=== PATIENT | male | born 1975 | race Caucasian/White ===

== ENCOUNTER 2018-08-17 13:45 | Inpatient (IN) | payer BC, SELFPAY ==
[2018-08-17] VITALS (26 sets, daily range): BP systolic 78–232; BP diastolic 39–94; PULSE 73–109; RESP 16–30; TEMP 35.7–37.7; O2SAT 67–925; BMI 43.2; BMI 43.4; BMI 43.5
--- NOTE | 2018-08-17 13:58 | RAD_ITS ---
STUDY: X-RAY CHEST REASON FOR EXAM: Male, 43 years old. Dyspnea TECHNIQUE: Frontal view of the chest COMPARISON: 02/12/2015 FINDINGS: There are low lung volumes. The lungs are grossly clear. The heart is prominent which is likely accentuated by the low lung volumes. The visualized osseous structures are within normal limits. RAD/Chest 1 View (Portable) IMPRESSION: Low lung volumes. Grossly clear lungs. Electronically Signed: Patrice Roth, at 14:26 EST Tel , Service support ,
--- NOTE | 2018-08-17 13:59 | ED.RN ---
PT WITH BILAT PETECHIAE ON THE UPPER EXTREMITIES. PHYSICIAN NOTIFIED.
--- NOTE | 2018-08-17 14:07 | EKG12_ITS ---
Test Reason : SOB Blood Pressure : / mmHG Vent. Rate : 091 BPM Atrial Rate : 091 BPM P-R Int : 124 ms QRS Dur : 110 ms QT Int : 368 ms P-R-T Axes : 026 073 052 degrees QTc Int : 452 ms Normal sinus rhythm Normal ECG Confirmed by ERIN HARMON, MILI ([id number]), technical writer and editor JENNIFER MART ([id number]) on 08/20/2018 2:25:32 PM Referred By: DC Confirmed By:MILI KHAN MD
--- NOTE | 2018-08-17 14:07 | CT_ITS ---
STUDY: CTA CHEST REASON FOR EXAM: Male, 43 years old. SOB, 3 DAYS POST OP HERNIA REPAIR, HYPOXIC ON ARRIVAL TO ED, HX-HTN, DB. RADIATION DOSAGE (If Supplied By Facility): CTDIvol = ( 18.38 ) mGy, DLP = ( 705.62 ) mGycm TECHNIQUE: The examination was performed with the intravenous administration of 100 ml of Isovue 370 contrast material. Post-processing of the angiographic images was performed, with multiplanar reformation and 3D reconstruction. Individualized dose optimization techniques were used for this CT. COMPARISON: None. FINDINGS: There is limited enhancement of the main pulmonary artery and right and left pulmonary arteries. There is limited enhancement of the bilateral peripheral pulmonary arteries. Normal thoracic aorta and visualized great vessels. Normal heart and pericardium. Normal mediastinum. Normal hilar regions. Normal visualized trachea and bronchi. The lungs are well expanded. There are numerous diffuse bilateral groundglass opacities with confluence at the lung bases. There is trace right pleural effusions. Normal pleura. Normal chest wall structures. There are degenerative changes of thoracic spine. CT/CTA Chest W/WO Contrast IMPRESSION: No large central pulmonary embolism. Extensive multi focal lung disease. Leading differential considerations are infectious disease and pulmonary edema. N.B. : The above information has been verbally conveyed by Pillo Streeter MD to MORENA Wheeler, on 08/17/2018 15:49:36 (ET). Electronically Signed: Pillo Streeter MD at 14:54 EST Tel , Service support ,
[2018-08-17] MEDS: Succinylcholine Chloride 200 MG/10 ML Vial 150 MG IV (14:27)
[2018-08-17] MEDS: Etomidate 20 MG/10 ML Vial IV (14:27)
[2018-08-17 14:30] LABS: International Normalized Ratio 1.2; Prothrombin Time (Protime)PT. 14.7 SECONDS (11.7-14.9)
[2018-08-17 14:31] LABS: Absolute Neutrophil Count 15.6 X10^3/uL (2.0-7.7); Basophil# 0.02 X10^3/uL; Basophil% 0.1 % (0-1); Eosinophil# 0.06 X10^3/uL; Eosinophils% 0.4 % (0-5); Hematocrit 45.2 % (40-54); Hemoglobin 15.6 g/dl (13.0-16.5); Lymphocyte % 4.2 % (19-41); Mean Corp Hgb Conc 34.5 g/gl (32-36); Mean Corpuscular Hgb 32.8 pg (27.0-32.0); Mean Platelet Vol. 12.2 fl (6.2-12.0); Monocyte# 0.29 X10^3/uL; Monocyte% 1.7 % (0-10); Neutrophil # 15.63 X10^3/uL (2.7-7.7); Neutrophil % 93.3 % (47-70); POSITIVE COUNT NO; POSITIVE DIFFERENTIAL NO; POSITIVE MORPHOLOGY NO; Partial Thromboplast Time 28.2 Seconds (24.1-36.2); Platelet Count 206 K/mm3 (150-450); RBC Distribution Width CV 13.3 % (11.6-14.6); RBC Distribution Width SD 44.4 fl (35.1-43.9); Red Blood Count 4.76 M/mm3 (4.6-6.2); White Blood Count 16.8 K/mm3 (4.4-11.0)
[2018-08-17 14:36] LABS: Anion Gap 9 (5-15); BUN 15 mg/dL (7-18); BUN/Creat Ratio 20.8 RATIO (10-20); Calcium,Total 8.7 mg/dL (8.5-10.1); Chloride 103 mmol/L (98-107); Creatinine, Serum 0.72 mg/dL (0.70-1.30); EST Glomerular Filtration Rate 127 mL/min (>60); Est Glom Filt Rate - Afr Amer 154 mL/min (>60); Estimated Creatinine Clearance 142.35 ml/min; Glucose 211 mg/dL (74-106); Potassium 3.9 mmol/L (3.5-5.1); Sodium Level 137 mmol/L (136-145)
[2018-08-17] MEDS: Propofol 10MG/Ml 1,000 MG/100 ML Bottle 8.442 MG CONT INF ×3 (14:36→23:01)
[2018-08-17] MEDS: fentaNYL 100 MCG/2 ML Ampul IV (14:39)
--- NOTE | 2018-08-17 14:47 | ED.RN ---
PT RESTLESS AND SEDATION NOT EFFECTIVE. PROPOFOL WAS TITRATED NECESSARY FOR ADEQUATE SEDATION POST INTUBATION.
--- NOTE | 2018-08-17 14:55 | RAD_ITS ---
STUDY: X-RAY CHEST REASON FOR EXAM: Male, 43 years old. His intubation TECHNIQUE: Single AP portable view of the chest. X2 COMPARISON: August 17, 2018 chest x-ray FINDINGS: An endotracheal tube is present high above the sameera 11 cm. NG tube is present the tip is in the stomach. There is a pattern of bilateral peribronchial thickening and increased interstitial markings and right perihilar consolidation. There is borderline cardiomegaly. Normal mediastinum and subha. Normal visualized pulmonary arteries. Normal visualized aortic arch and descending thoracic aorta. There are diffuse degenerative changes of the visualized thoracic spine. Normal visualized ribs, clavicles, and shoulders. There is no demonstrated abnormality of the visualized soft tissue structures of the upper abdomen. RAD/Chest 1 View (Portable) IMPRESSION: The endotracheal tube is high and should be advanced at least 6 cm. The tube is now nearly 11 cm above the sameera and above the clavicles. Consider edema and/or diffuse atypical infiltrates. N.B. : The above information has been verbally conveyed by Indiana Flores MD to DR ANA MATOS MD, on 08/17/2018 15:54:30 (ET). Electronically Signed: Indiana Floers MD at 15:43 EST Tel , Service support ,
[2018-08-17 14:56] LABS: BNP,B-Type NATRIURETIC PEPTIDE 38.8 pg/mL (0-100)
--- NOTE | 2018-08-17 14:57 | ED.RN ---
PT SEDATION STILL NOT ADEQUATE. PT PROPOFOL TITRATION EXCEEDED MAR D/T INADEQUATE LEVEL OF SEDATION.
--- NOTE | 2018-08-17 15:19 | ED.RN ---
DR KHAN AT BEDSIDE, PERFORMING ECHO. MOM AND SISTER PRESENT AT THIS TIME WELL.
[2018-08-17] MEDS: Furosemide 100 MG/10 ML Vial 80 MG IV (15:38)
--- NOTE | 2018-08-17 15:53 | ED.VISSUMM ---
- ER Visit Summary Date of Service: 08/17/18 Chief Complaint: Shortness of breath History of Present Illness: The patient is a 43 M with shortness of breath. Symptoms started fairly suddenly today while at rest. The patient also has sweats, cough, nausea, and sputum. Denies fevers. Denies chest pain. Denies any history of this in the past. Denies any history of lung disease or heart disease. Denies history of PE. He had a hernia repair [address] Thompson which went well. He has no abdominal pain or GI symptoms other than nausea. Physical Examination: Hypertensive at 230 systolic. Otherwise afebrile. Pulse ox in the 60s on room air. Patient is slightly pale and diaphoretic. Lungs are diminished throughout. Heart regular. Abdomen soft and nontender. Incisions clean, dry, intact. Calves soft and supple. Strong pulses. Test Results: EKG showed sinus rhythm at a rate of 91. No sign of acute ischemia or infarction pattern. Emergency Department Course and Treatment: Patient was seen immediately. Placed on a monitor and oxygen. His pulse ox went to the mid 90s on 100% oxygen. He continued to be symptomatically short of breath. Chest x-ray showed low volumes but was otherwise unremarkable. CT was done and showed multifocal pneumonia versus pulmonary edema. No definite PE. He does have splenomegaly. Official read is pending, but I spoke with the radiologist directly. White count 16.8 troponin normal. BNP normal. Hepatic panel, lactate pending. ABG pending. Patient was intubated for hypoxic respiratory failure. Etomidate and succinylcholine were given. Intubation was successful and confirmed with capnography and breath sounds. He was sedated with propofol and fentanyl. We started a nitro drip for hypertension. Dr. Weldon was contacted and performed a bedside ultrasound. He believes that the heart function appeared normal. He advised blood pressure control and Lasix. He was given 80 mg of Lasix. ICU and hospitalist were contacted. He will be admitted for further care. He was given empiric Levaquin. Cultures and urinalysis are pending. Lactate pending. Blood pressure is much improved. Radiology called again to recommend advancement of his ET tube. This was advanced 5-6 cm. Patient is tolerating the vent. ABG pending. Dr. Gilmore also notified. Treatment Plan: As above Disposition: Admission to ICU Impression: 1. Pulmonary edema 2. Hypertension 3. respiratory failure This note was generated with [employer] dictation software. It may contain incorrect words, spelling, and punctuation that were not noted in review of the chart prior to signing ED Disposition - Plan for ED Patient: Chief Complaint: General Illness Referrals: Itz Orellana DO [Primary Care Provider] -
[2018-08-17 15:57] LABS: Bacteria 0 SEEN /hpf (None Seen); Mucous, Urine 0 SEEN /hpf (<or=2+); White Blood Cells 0 SEEN /hpf (0-5)
--- NOTE | 2018-08-17 16:02 | PCM.CONS.C ---
Problem List (1) Hypertensive emergency Status: Acute (2) Flash pulmonary edema Status: Acute (3) Hyperlipidemia Status: Chronic (4) Borderline diabetes Status: Chronic (5) Obesity Status: Chronic (6) S/P inguinal hernia repair Status: Acute Reason for Consult Date of Consultation: 08/17/18 History of Present Illness: The patient is a 43 year old white male with a history of hyperlipidemia, hypertension, diabetes mellitus, obesity, status post recent right inguinal hernia repair who is referred for evaluation of a hypertensive emergency and subsequent flash pulmonary edema. The patient recently underwent right inguinal hernia repair without apparent complication. According to his family members he was noted to be having a cough but no definitive etiology. They note that today he was coughing, complained of being short of breath, and had nausea. They state he had not been complaining of any chest discomfort, there was no report of emesis, there was no report of near syncope or syncope. Explain his symptoms he was separately brought to and evaluated by the [facility] emergency department staff. He was found to be markedly hypertensive with systolic blood pressure in excess of 200 mmHg and found to have marked hypoxia. He subsequently required mechanical intubation/ventilation. He was placed on additional antihypertensive therapy with IV nitroglycerin. He underwent laboratory studies which demonstrated a negative troponin I level and a negative BNP. His ECG demonstrated sinus rhythm with no acute ECG changes. He also underwent a chest CT scan which suggested possible infiltrates versus increased pulmonary vascularity and per preliminary radiology report no definitive pulmonary emboli. Cardiology was consulted to evaluate the patient. Additional evaluation was performed with a bedside hand-held portable transthoracic echocardiographic device which demonstrated a technically difficult and diminished quality study thought secondary to patient's body habitus and underlying pulmonary disease process, however, based upon the 2D echo cardiographic images obtained there appeared to be grossly normal right and left ventricular systolic function. The patient was subsequently treated with additional medical therapy with IV diuretics. He was recommended for ICU evaluation and care. Of note, based upon a conversation with the patient's mother, she states she is not clear he has been taking his medications, including his antihypertensive therapy, as recommended. She notes his antihypertensive therapy has recently been adjusted by his PCP to try and bring his blood pressure under better control. [] Past Medical History Allergies/Adverse Reactions: Allergies codeine Adverse Reaction (Verified 08/17/18 14:02) Other Home Medications: Ambulatory Orders Medication Instructions Recorded Lisinopril [Zestril] 20 mg PO DAILY #30 tablet 02/13/15 Acetaminophen [Tylenol] 500 - 1,000 mg PO Q6H PRN PRN 02/13/17 Atorvastatin Calcium [Lipitor] 20 mg PO QHS 02/13/17 Metformin HCl [Metformin HCl ER] 500 mg PO BID 02/13/17 Oxycodone [Oxyir] 5 mg PO Q4H PRN PRN #30 tablet 02/19/17 Past Medical History (Chronic Problems): Chronic Problems Borderline diabetes (Chronic) Hyperlipidemia (Chronic) Obesity (Chronic) Benign essential HTN (Chronic) Surgical History: herniorrhaphy, - - He has had a fracture of the distal RLE in the past and has rods and screws. Psychiatric History: No pertinent psych hx - *Family History Maternal History Items: High Cholesterol, Hypertension Paternal History Items: High Cholesterol, Hypertension Smoking Status: Former smoker Alcohol: None Drugs: None Review of Systems - Review of Systems General: Denies: Fever, Night Sweats, Fatigue Cardiovascular: Reports: Shortness of Breath. Denies: Chest Discomfort, Orthopnea, PND, Peripheral Edema, Palpitations, Lightheadedness, Dizziness, Near Syncope, Syncope Respiratory: Reports: Cough, Shortness of Breath. Denies: Hemoptysis Gastrointestinal: Reports: Nausea. Denies: Hematemesis, Hematochezia, Melena Genitourinary: Denies: Dysuria, Hematuria Skin: Denies: Rash Subjectve: This is a 43-year-old white male who is currently mechanically intubated, ventilated, and sedated. Of note his endotracheal tube does demonstrate what appears to be a pink frothy sputum present. Objective: Vital Signs Temp Pulse Resp BP Pulse Ox 99.9 F H 88 19 H 131/51 H 94 08/17/18 15:33 08/17/18 15:33 08/17/18 15:33 08/17/18 15:33 08/17/18 15:33 Oxygen Flow Rate (L/min) 15 Oxygen Delivery Method Mechanical Ventilator Weight: 310 lb 3.046 oz Body Mass Index (BMI) 43.2 Finger Stick Blood Glucose 174 Intake and Output for Last 24 Hours 08/15/18 08/16/18 08/17/18 23:59 23:59 23:59 Output Total Balance - General: Obese HEENT: Atraumatic, Normocephalic Lungs: Rhonchi Cardiovascular: Regular Rhythm, Normal S1, Normal S2 Vascular: No Carotid Bruits Abdomen: Bowel Sounds Present, Soft Extremities: No edema 08/17/18 13:54: WBC 16.8 H, RBC 4.76, Hgb 15.6, Hct 45.2, MCV 95.0 H, MCH 32.8 H, MCHC 34.5, RDW 13.3, RDW Differential 44.4 H, Plt Count 206, MPV 12.2 H, Immature Gran % (Auto) 0.300, Neut % (Auto) 93.3 H, Lymph % (Auto) 4.2 L, [place] % (Auto) 1.7, Eos % (Auto) 0.4, Baso % (Auto) 0.1, Absolute Neuts (auto) 15.6 H, Total Counted Not Reportable 08/17/18 13:54: PT 14.7, INR 1.2, APTT 28.2 08/17/18 13:54: Sodium 137, Potassium 3.9, Chloride 103, Carbon Dioxide 25.0, Anion Gap 9, BUN 15, Creatinine 0.72, Est GFR (MDRD) Af Amer 154, Est GFR (MDRD) Non-Af 127, BUN/Creatinine Ratio 20.8 H, Glucose 211 H, Calcium 8.7, Troponin I 0.019 08/17/18 13:54: B-Natriuretic Peptide 38.8 Rhythm: Sinus rhythm EKG: As noted above ECHO: As noted above Chest CT Scan: Please see official report Assessment/Plan 1. Hypertensive emergency The patient presented with a systolic blood pressure in excess of 200 mmHg. This was associated with concerns of pulmonary edema and hypoxia. At the present time the patient is currently mechanically intubated, ventilated, and sedated. The patient has been placed on IV nitroglycerin and his systolic blood pressure appears to be decreasing. The patient is also receiving IV diuretic therapy and attempt to improve his underlying pulmonary edema process. The patient will need continued ICU monitoring. His vital signs be monitored. He will need continued medical therapy as deemed appropriate to maintain adequate blood pressure control. 2. Flash pulmonary edema The patient presents with a scenario compatible with underlying flash pulmonary edema possibly secondary to his marked hypertension. At the present time his initial cardiac enzymes are negative. His initial ECG demonstrates no acute ECG changes. His chest CT scan was reported by radiology as demonstrating no definitive pulmonary embolus, however, it appears that this was a diminished quality chest CT scan. At the present time the patient is mechanically intubated, ventilated, sedated. He has been requiring FiO2 requirements of 100%. He will continue antihypertensive therapy. He will continue diuretic therapy. Hopefully with diuresis and improvement in his underlying pulmonary process his O2 acquired which will decrease in his O2 saturation will increase and eventually he will be able to be extubated. During this time he will continue to be monitored. His cardiac enzymes and ECG can be followed. A formal echocardiogram will be requested for further evaluation care. Hopefully with improvement in his pulmonary disease process his echocardiographic image quality may improve as well. Same time, based on his chest CT scan, underlying separate pulmonary infiltrates cannot be excluded on his clinical scenario objective findings he can be further evaluated and treated as deemed appropriate for a possible pulmonary infection disease issue as well. 3. Hyperlipidemia He will continue medical management as deemed appropriate. 4. Diabetes mellitus He will continue under the care of internal medicine for this. 5. Obesity The patient is unfortunately overweight/obese. This does make it challenging with respect to performing and interpreting diagnostic imaging studies, etc. Hopefully, as the patient recuperates from his event, in the future, he can bring his weight under better control. 6. Status post right inguinal hernia repair He can be further evaluated by internal medicine and/or general surgery as deemed appropriate for this. Comment: The patient's case has been discussed and reviewed with the patient, his mother, [facility] emergency department staff, and the [facility] hospitalist staff. This note was generated using a voice recognition system and there may be incorrect words, spelling or punctuation that were not noted when reviewing the office note prior to saving.
[2018-08-17 16:06] LABS: Color, Urine Yellow (Yellow); Glucose, Dipstick Normal (Normal); Ketone-Dipstick Negative (Negative); Leukocyte Esterase-Dipstick Negative /ul (Negative); Nitrite-Dipstick Negative (Negative); Occult Blood-Urine 150 /ul (Negative); Protein-Dipstick 30 mg/dl (Negative); Urine Bilirubin Dipstick Negative (Negative); Urine Clarity Clear (Clear); Urine Urobilinogen Normal (Normal)
[2018-08-17 16:06] LABS: Allen Test POS; Base Excess 3 mmol/L (-2 to +2); Bicarbonate 29.5 mmol/L (22-26); Blood Gas Specimen Type ART; FI02 100; Mode A-C; O2 Delivery Device Vent; PEEP 10; PO2 179 mmHG (75-100); RR 16; SITE L Radial; SO2 99 % (95-99); Time Given 1558; Total Carbon Dioxide 31 mmol/L; Vt 450; pCO2 61.5 mmHg (35-45); pH 7.29 (7.35-7.45)
--- NOTE | 2018-08-17 16:11 | PCM.HP.STD ---
History of Present Illness Date of Admission: 08/17/18 Chief Complaint: shortness of breath. The patient is a 43 year old M today where he became short of breath. On Sunday, August 14, patient had a hernia surgery that was uncomplicated and it was a same-day surgery. Patient had no ill effects of it and per the family, there is no issues with surgery. Patient went home same day. Patient did have dry cough but otherwise feeling well. Today patient became very short of breath and was sent to the emergency room. In the emergency room, patient was noted to be hypoxic with pulse ox of 67%. Patient was put on nonrebreather but then was intubated shortly afterwards. Patient was also profoundly hypertensive with a blood pressure of 232/83. Patient had a chest x-ray and CAT scan that were pneumonia versus heart failure. Patient received 80 mg of IV Lasix, nitroglycerin drip and Levaquin. Patient had a bedside echo, performed by Dr. Weldon, that showed normal RV and LV though a limited study. Patient is intubated and sedated so history is taken to Dr. Weldon, Dr. Barrow and the patient's family. [] Past Medical History Past Medical History (Chronic Problems): Chronic Problems Borderline diabetes (Chronic) Hyperlipidemia (Chronic) Obesity (Chronic) Benign essential HTN (Chronic) Allergies codeine Adverse Reaction (Verified 08/17/18 14:02) Other Home Medications: Ambulatory Orders Medication Instructions Recorded Lisinopril [Zestril] 20 mg PO DAILY #30 tablet 02/13/15 Acetaminophen [Tylenol] 500 - 1,000 mg PO Q6H PRN PRN 02/13/17 Atorvastatin Calcium [Lipitor] 20 mg PO QHS 02/13/17 Metformin HCl [Metformin HCl ER] 500 mg PO BID 02/13/17 Oxycodone [Oxyir] 5 mg PO Q4H PRN PRN #30 tablet 02/19/17 Surgical History: herniorrhaphy, - - He has had a fracture of the distal RLE in the past and has rods and screws. Psychiatric History: No pertinent psych hx Smoking Status: Former smoker Alcohol: None Drugs: None - *Family History Maternal History Items: High Cholesterol, Hypertension Paternal History Items: High Cholesterol, Hypertension Review of Systems Comment: Unable to obtain review of systems as patient is intubated and sedated. Please refer to the HPI for further details. VTE Information - Inpt Only VTE Present on Admission: No VTE Mechan Device Prophylaxis: SCD's VTE Pharm Prophylaxis ordered?: Yes Patient Problems: Active and Suspected Problems Hypertensive emergency (Acute) Flash pulmonary edema (Acute) S/P inguinal hernia repair (Acute) - Physical Exam General: Well developed, Well nourished, - - Intubated and sedated. Afebrile. HEENT: Atraumatic, PERRLA, Normocephalic, - - No scleral icterus Oral: Moist Mucosa, - - Endotracheal tube and orogastric tube in place Neck: No JVD, No Nodes, Thyroid Normal Size and Texture Lungs: Diminished, - - Coarse breath sounds bilaterally Cardiovascular: Regular rate, Regular Rhythm, Normal S1, Normal S2, No murmurs Abdomen: Bowel Sounds Present, Soft, Non Tender, Non-Distended, Obese Extremities: No edema, No Calf Tenderness, - - Does have a firm mass on right anterior rodríguez Skin: No rashes, No breakdown Musculoskeletal: No Tenderness to Palpation of Joints or Extremities, No Muscle Wasting Neurological: - - No clonus. DTRs intact. Vital Signs Temp Pulse Resp BP Pulse Ox 37.4 C H 108 H 24 H 139/94 H 925 08/17/18 16:07 08/17/18 16:07 08/17/18 16:07 08/17/18 16:07 08/17/18 16:07 Oxygen Flow Rate (L/min) 15 Oxygen Delivery Method Mechanical Ventilator Weight: 140.7 kg Body Mass Index (BMI) 43.2 Finger Stick Blood Glucose 174 Intake and Output for Last 24 Hours 08/15/18 08/16/18 08/17/18 23:59 23:59 23:59 Output Total 205 / 205 Balance -205 / -205 Laboratory Tests Past 24 Hrs 08/17/18 08/17/18 08/17/18 13:54 13:54 13:54 WBC 16.8 H RBC 4.76 Hgb 15.6 Hct 45.2 MCV 95.0 H MCH 32.8 H MCHC 34.5 RDW 13.3 RDW Differential 44.4 H Plt Count 206 MPV 12.2 H Immature Gran % (Auto) 0.300 Neut % (Auto) 93.3 H Lymph % (Auto) 4.2 L [place] % (Auto) 1.7 Eos % (Auto) 0.4 Baso % (Auto) 0.1 Absolute Neuts (auto) 15.6 H Absolute Lymphs (auto) 0.70 L Total Counted Not Reportable PT 14.7 INR 1.2 APTT 28.2 Specimen Type Sample Site pH Bicarbonate Actual POC Total CO2 Base Excess O2 Saturation O2 % ABG pCO2 ABG pO2 Cheng Test Respiration Rate O2 Delivery Device Vent Mode Tidal Volume POC PEEP Blood Gas Notified Whom Blood Gas Notified Time Sodium 137 Potassium 3.9 Chloride 103 Carbon Dioxide 25.0 Anion Gap 9 BUN 15 Creatinine 0.72 Estim Creat Clear Calc 142.35 Est GFR (MDRD) Af Amer 154 Est GFR (MDRD) Non-Af 127 BUN/Creatinine Ratio 20.8 H Glucose 211 H Lactic Acid Calcium 8.7 Total Bilirubin Direct Bilirubin AST ALT Alkaline Phosphatase Troponin I 0.019 B-Natriuretic Peptide Total Protein Albumin Urine Color Urine Clarity Urine pH Ur Specific [place] Urine Protein Urine Glucose (UA) Urine Ketones Urine Occult Blood Urine Nitrite Urine Bilirubin Urine Urobilinogen Ur Leukocyte Esterase Urine RBC Urine WBC Ur Squamous Epith Cells Urine Bacteria Urine Mucus 08/17/18 08/17/18 08/17/18 13:54 15:45 15:45 WBC RBC Hgb Hct MCV MCH MCHC RDW RDW Differential Plt Count MPV Immature Gran % (Auto) Neut % (Auto) Lymph % (Auto) [place] % (Auto) Eos % (Auto) Baso % (Auto) Absolute Neuts (auto) Absolute Lymphs (auto) Total Counted PT INR APTT Specimen Type Sample Site pH Bicarbonate Actual POC Total CO2 Base Excess O2 Saturation O2 % ABG pCO2 ABG pO2 Cheng Test Respiration Rate O2 Delivery Device Vent Mode Tidal Volume POC PEEP Blood Gas Notified Whom Blood Gas Notified Time Sodium Potassium Chloride Carbon Dioxide Anion Gap BUN Creatinine Estim Creat Clear Calc Est GFR (MDRD) Af Amer Est GFR (MDRD) Non-Af BUN/Creatinine Ratio Glucose Lactic Acid Pending Calcium Total Bilirubin Pending Direct Bilirubin Pending AST Pending ALT Pending Alkaline Phosphatase Pending Troponin I B-Natriuretic Peptide 38.8 Total Protein Pending Albumin Pending Urine Color Urine Clarity Urine pH Ur Specific [place] Urine Protein Urine Glucose (UA) Urine Ketones Urine Occult Blood Urine Nitrite Urine Bilirubin Urine Urobilinogen Ur Leukocyte Esterase Urine RBC Urine WBC Ur Squamous Epith Cells Urine Bacteria Urine Mucus 08/17/18 08/17/18 15:50 16:01 WBC RBC Hgb Hct MCV MCH MCHC RDW RDW Differential Plt Count MPV Immature Gran % (Auto) Neut % (Auto) Lymph % (Auto) [place] % (Auto) Eos % (Auto) Baso % (Auto) Absolute Neuts (auto) Absolute Lymphs (auto) Total Counted PT INR APTT Specimen Type ART Sample Site L Radial pH 7.29 L Bicarbonate Actual 29.5 H POC Total CO2 31 Base Excess 3 H O2 Saturation 99 O2 % 100 ABG pCO2 61.5 H ABG pO2 179 H Cheng Test POS Respiration Rate 16 O2 Delivery Device Vent Vent Mode A-C Tidal Volume 450 POC PEEP 10 Blood Gas Notified Whom ED Blood Gas Notified Time 1558 Sodium Potassium Chloride Carbon Dioxide Anion Gap BUN Creatinine Estim Creat Clear Calc Est GFR (MDRD) Af Amer Est GFR (MDRD) Non-Af BUN/Creatinine Ratio Glucose Lactic Acid Calcium Total Bilirubin Direct Bilirubin AST ALT Alkaline Phosphatase Troponin I B-Natriuretic Peptide Total Protein Albumin Urine Color Yellow Urine Clarity Clear Urine pH 5.0 Ur Specific [place] 1.010 Urine Protein 30 H Urine Glucose (UA) Normal Urine Ketones Negative Urine Occult Blood 150 H Urine Nitrite Negative Urine Bilirubin Negative Urine Urobilinogen Normal Ur Leukocyte Esterase Negative Urine RBC Pending Urine WBC Pending Ur Squamous Epith Cells Pending Urine Bacteria Pending Urine Mucus Pending Clinical Impression(s) from Imaging Studies Chest X-Ray 08/17/18 13:58 IMPRESSION: Low lung volumes. Grossly clear lungs. Electronically Signed: Patrice Roth at 14:26 EST Tel , Service support , Chest CTA 08/17/18 14:07 IMPRESSION: No large central pulmonary embolism. Extensive multi focal lung disease. Leading differential considerations are infectious disease and pulmonary edema. N.B. : The above information has been verbally conveyed by Pillo Streeter MD to MORENA Wheeler, on 08/17/2018 15:49:36 (ET). Electronically Signed: Pillo Streeter MD at 14:54 EST Tel , Service support , ADDENDUM: 08/17/18 1607 Chest X-Ray 08/17/18 14:55 IMPRESSION: The endotracheal tube is high and should be advanced at least 6 cm. The tube is now nearly 11 cm above the sameera and above the clavicles. Consider edema and/or diffuse atypical infiltrates. N.B. : The above information has been verbally conveyed by Indiana Flores MD to DR ANA MATOS MD, on 08/17/2018 15:54:30 (ET). Electronically Signed: Indiana Flores MD at 15:43 EST Tel , Service support , EKG reviewed and showed normal sinus rhythm with LVH. Assessment/Plan All Active Problems Hypertensive emergency (Acute) Flash pulmonary edema (Acute) S/P inguinal hernia repair (Acute) Thrombocytopenia (Acute) Chest pain (Acute) Elevated CPK (Acute) 1. Acute hypoxic respiratory failure Etiology is not quite clear at this time but concern is for either CHF versus pneumonia. CHF may be related with flash pulmonary edema due to malignant hypertension. However patient could have pneumonia with acute lung injury. Patient on ventilator, wean as tolerated. Pulmonary on consultation Pulmonary toilet 2. Possible pneumococcal pneumonia Will check urinary antigens for Streptococcus and Legionella. Check sputum culture As patient was only briefly hospitalized for an outpatient surgery, this would not qualify for patient for age. IV Levaquin Pulmonary toilet If indeed due to pneumonia, be concern for acute lung injury associated with that as well. 3. Possible heart failure with preserved ejection fraction Per brief cardiology report, patient had a normal EF. We will check a formal echocardiogram Continue with IV Lasix Continue with the patient's lisinopril If this is indeed due to heart failure may have been flash pulmonary edema due to the patient's malignant hypertension Patient's BNP was only 38.8 4. Malignant hypertension Much improved at this time Unclear if this is the etiology of his symptoms or a result of his shortness of breath hypoxia Continue the nitro drip and his home lisinopril Family is concerned the patient may not be properly taking his home medications 5. Diabetes mellitus type 2 Start sliding scale insulin 6. GI prophylaxis with H2 shawn 7. DVT prophylaxis with Lovenox and SCDs. Patient moderate to high risk for VTE Code Visit Inpatient E&M: 22510 Init Hosp L3
[2018-08-17 16:13] LABS: Red Blood Cells-Urine 0-5 SEEN /hpf (0-5); Squamous Epithelial Cells - UA 0-5 SEEN /hpf (0-5)
--- NOTE | 2018-08-17 16:15 | HP.PCM_ITS ---
History of Present Illness Date of Admission: 08/17/18 Chief Complaint: shortness of breath. The patient is a 43 year old M today where he became short of breath. On Sunday, August 14, patient had a hernia surgery that was uncomplicated and it was a same-day surgery. Patient had no ill effects of it and per the family, there is no issues with surgery. Patient went home same day. Patient did have dry cough but otherwise feeling well. Today patient became very short of breath and was sent to the emergency room. In the emergency room, patient was noted to be hypoxic with pulse ox of 67%. Patient was put on nonrebreather but then was intubated shortly afterwards. Patient was also profoundly hypertensive with a blood pressure of 232/83. Patient had a chest x-ray and CAT scan that were pneumonia versus heart failure. Patient received 80 mg of IV Lasix, nitroglycerin drip and Levaquin. Patient had a bedside echo, performed by Dr. Weldon, that showed normal RV and LV though a limited study. Patient is intubated and sedated so history is taken to Dr. Weldon, Dr. Barrow and the patient's family. [] Past Medical History Past Medical History (Chronic Problems): Chronic Problems Borderline diabetes (Chronic) Hyperlipidemia (Chronic) Obesity (Chronic) Benign essential HTN (Chronic) Allergies codeine Adverse Reaction (Verified 08/17/18 14:02) Other Home Medications: Ambulatory Orders Medication Instructions Recorded Lisinopril [Zestril] 20 mg PO DAILY #30 tablet 02/13/15 Acetaminophen [Tylenol] 500 - 1,000 mg PO Q6H PRN PRN 02/13/17 Atorvastatin Calcium [Lipitor] 20 mg PO QHS 02/13/17 Metformin HCl [Metformin HCl ER] 500 mg PO BID 02/13/17 Oxycodone [Oxyir] 5 mg PO Q4H PRN PRN #30 tablet 02/19/17 Surgical History: herniorrhaphy, - - He has had a fracture of the distal RLE in the past and has rods and screws. Psychiatric History: No pertinent psych hx Smoking Status: Former smoker Alcohol: None Drugs: None - *Family History Maternal History Items: High Cholesterol, Hypertension Paternal History Items: High Cholesterol, Hypertension Review of Systems Comment: Unable to obtain review of systems as patient is intubated and sedated. Please refer to the HPI for further details. VTE Information - Inpt Only VTE Present on Admission: No VTE Mechan Device Prophylaxis: SCD's VTE Pharm Prophylaxis ordered?: Yes Patient Problems: Active and Suspected Problems Hypertensive emergency (Acute) Flash pulmonary edema (Acute) S/P inguinal hernia repair (Acute) - Physical Exam General: Well developed, Well nourished, - - Intubated and sedated. Afebrile. HEENT: Atraumatic, PERRLA, Normocephalic, - - No scleral icterus Oral: Moist Mucosa, - - Endotracheal tube and orogastric tube in place Neck: No JVD, No Nodes, Thyroid Normal Size and Texture Lungs: Diminished, - - Coarse breath sounds bilaterally Cardiovascular: Regular rate, Regular Rhythm, Normal S1, Normal S2, No murmurs Abdomen: Bowel Sounds Present, Soft, Non Tender, Non-Distended, Obese Extremities: No edema, No Calf Tenderness, - - Does have a firm mass on right anterior rodríguez Skin: No rashes, No breakdown Musculoskeletal: No Tenderness to Palpation of Joints or Extremities, No Muscle Wasting Neurological: - - No clonus. DTRs intact. Vital Signs Temp Pulse Resp BP Pulse Ox 37.4 C H 108 H 24 H 139/94 H 925 08/17/18 16:07 08/17/18 16:07 08/17/18 16:07 08/17/18 16:07 08/17/18 16:07 Oxygen Flow Rate (L/min) 15 Oxygen Delivery Method Mechanical Ventilator Weight: 140.7 kg Body Mass Index (BMI) 43.2 Finger Stick Blood Glucose 174 Intake and Output for Last 24 Hours 08/15/18 08/16/18 08/17/18 23:59 23:59 23:59 Output Total 205 / 205 Balance -205 / -205 Laboratory Tests Past 24 Hrs 08/17/18 08/17/18 08/17/18 13:54 13:54 13:54 WBC 16.8 H RBC 4.76 Hgb 15.6 Hct 45.2 MCV 95.0 H MCH 32.8 H MCHC 34.5 RDW 13.3 RDW Differential 44.4 H Plt Count 206 MPV 12.2 H Immature Gran % (Auto) 0.300 Neut % (Auto) 93.3 H Lymph % (Auto) 4.2 L [place] % (Auto) 1.7 Eos % (Auto) 0.4 Baso % (Auto) 0.1 Absolute Neuts (auto) 15.6 H Absolute Lymphs (auto) 0.70 L Total Counted Not Reportable PT 14.7 INR 1.2 APTT 28.2 Specimen Type Sample Site pH Bicarbonate Actual POC Total CO2 Base Excess O2 Saturation O2 % ABG pCO2 ABG pO2 Cheng Test Respiration Rate O2 Delivery Device Vent Mode Tidal Volume POC PEEP Blood Gas Notified Whom Blood Gas Notified Time Sodium 137 Potassium 3.9 Chloride 103 Carbon Dioxide 25.0 Anion Gap 9 BUN 15 Creatinine 0.72 Estim Creat Clear Calc 142.35 Est GFR (MDRD) Af Amer 154 Est GFR (MDRD) Non-Af 127 BUN/Creatinine Ratio 20.8 H Glucose 211 H Lactic Acid Calcium 8.7 Total Bilirubin Direct Bilirubin AST ALT Alkaline Phosphatase Troponin I 0.019 B-Natriuretic Peptide Total Protein Albumin Urine Color Urine Clarity Urine pH Ur Specific [place] Urine Protein Urine Glucose (UA) Urine Ketones Urine Occult Blood Urine Nitrite Urine Bilirubin Urine Urobilinogen Ur Leukocyte Esterase Urine RBC Urine WBC Ur Squamous Epith Cells Urine Bacteria Urine Mucus 08/17/18 08/17/18 08/17/18 13:54 15:45 15:45 WBC RBC Hgb Hct MCV MCH MCHC RDW RDW Differential Plt Count MPV Immature Gran % (Auto) Neut % (Auto) Lymph % (Auto) [place] % (Auto) Eos % (Auto) Baso % (Auto) Absolute Neuts (auto) Absolute Lymphs (auto) Total Counted PT INR APTT Specimen Type Sample Site pH Bicarbonate Actual POC Total CO2 Base Excess O2 Saturation O2 % ABG pCO2 ABG pO2 Cheng Test Respiration Rate O2 Delivery Device Vent Mode Tidal Volume POC PEEP Blood Gas Notified Whom Blood Gas Notified Time Sodium Potassium Chloride Carbon Dioxide Anion Gap BUN Creatinine Estim Creat Clear Calc Est GFR (MDRD) Af Amer Est GFR (MDRD) Non-Af BUN/Creatinine Ratio Glucose Lactic Acid Pending Calcium Total Bilirubin Pending Direct Bilirubin Pending AST Pending ALT Pending Alkaline Phosphatase Pending Troponin I B-Natriuretic Peptide 38.8 Total Protein Pending Albumin Pending Urine Color Urine Clarity Urine pH Ur Specific [place] Urine Protein Urine Glucose (UA) Urine Ketones Urine Occult Blood Urine Nitrite Urine Bilirubin Urine Urobilinogen Ur Leukocyte Esterase Urine RBC Urine WBC Ur Squamous Epith Cells Urine Bacteria Urine Mucus 08/17/18 08/17/18 15:50 16:01 WBC RBC Hgb Hct MCV MCH MCHC RDW RDW Differential Plt Count MPV Immature Gran % (Auto) Neut % (Auto) Lymph % (Auto) [place] % (Auto) Eos % (Auto) Baso % (Auto) Absolute Neuts (auto) Absolute Lymphs (auto) Total Counted PT INR APTT Specimen Type ART Sample Site L Radial pH 7.29 L Bicarbonate Actual 29.5 H POC Total CO2 31 Base Excess 3 H O2 Saturation 99 O2 % 100 ABG pCO2 61.5 H ABG pO2 179 H Cheng Test POS Respiration Rate 16 O2 Delivery Device Vent Vent Mode A-C Tidal Volume 450 POC PEEP 10 Blood Gas Notified Whom ED Blood Gas Notified Time 1558 Sodium Potassium Chloride Carbon Dioxide Anion Gap BUN Creatinine Estim Creat Clear Calc Est GFR (MDRD) Af Amer Est GFR (MDRD) Non-Af BUN/Creatinine Ratio Glucose Lactic Acid Calcium Total Bilirubin Direct Bilirubin AST ALT Alkaline Phosphatase Troponin I B-Natriuretic Peptide Total Protein Albumin Urine Color Yellow Urine Clarity Clear Urine pH 5.0 Ur Specific [place] 1.010 Urine Protein 30 H Urine Glucose (UA) Normal Urine Ketones Negative Urine Occult Blood 150 H Urine Nitrite Negative Urine Bilirubin Negative Urine Urobilinogen Normal Ur Leukocyte Esterase Negative Urine RBC Pending Urine WBC Pending Ur Squamous Epith Cells Pending Urine Bacteria Pending Urine Mucus Pending Clinical Impression(s) from Imaging Studies Chest X-Ray 08/17/18 13:58 IMPRESSION: Low lung volumes. Grossly clear lungs. Electronically Signed: Patrice Roth at 14:26 EST Tel , Service support , Chest CTA 08/17/18 14:07 IMPRESSION: No large central pulmonary embolism. Extensive multi focal lung disease. Leading differential considerations are infectious disease and pulmonary edema. N.B. : The above information has been verbally conveyed by Pillo Streeter MD to MORENA Wheeler, on 08/17/2018 15:49:36 (ET). Electronically Signed: Pillo Streeter MD at 14:54 EST Tel , Service support , ADDENDUM: 08/17/18 1607 Chest X-Ray 08/17/18 14:55 IMPRESSION: The endotracheal tube is high and should be advanced at least 6 cm. The tube is now nearly 11 cm above the sameera and above the clavicles. Consider edema and/or diffuse atypical infiltrates. N.B. : The above information has been verbally conveyed by Indiana Flores MD to DR ANA MATOS MD, on 08/17/2018 15:54:30 (ET). Electronically Signed: Indiana Flores MD at 15:43 EST Tel , Service support , EKG reviewed and showed normal sinus rhythm with LVH. Assessment/Plan All Active Problems Hypertensive emergency (Acute) Flash pulmonary edema (Acute) S/P inguinal hernia repair (Acute) Thrombocytopenia (Acute) Chest pain (Acute) Elevated CPK (Acute) 1. Acute hypoxic respiratory failure * Etiology is not quite clear at this time but concern is for either CHF versus pneumonia. CHF may be related with flash pulmonary edema due to malignant hypertension. However patient could have pneumonia with acute lung injury. * Patient on ventilator, wean as tolerated. * Pulmonary on consultation * Pulmonary toilet 2. Possible pneumococcal pneumonia * Will check urinary antigens for Streptococcus and Legionella. Check sputum culture * As patient was only briefly hospitalized for an outpatient surgery, this would not qualify for patient for age. * IV Levaquin * Pulmonary toilet * If indeed due to pneumonia, be concern for acute lung injury associated with that as well. 3. Possible heart failure with preserved ejection fraction * Per brief cardiology report, patient had a normal EF. * We will check a formal echocardiogram * Continue with IV Lasix * Continue with the patient's lisinopril * If this is indeed due to heart failure may have been flash pulmonary edema due to the patient's malignant hypertension * Patient's BNP was only 38.8 4. Malignant hypertension * Much improved at this time * Unclear if this is the etiology of his symptoms or a result of his shortness of breath hypoxia * Continue the nitro drip and his home lisinopril * Family is concerned the patient may not be properly taking his home medications 5. Diabetes mellitus type 2 * Start sliding scale insulin 6. GI prophylaxis with H2 shawn 7. DVT prophylaxis with Lovenox and SCDs. Patient moderate to high risk for VTE Code Visit Inpatient E&M: 51459 Init Hosp L3
[2018-08-17] MEDS: LORazepam 2 MG/ML Syringe IV (16:17)
[2018-08-17 16:21] LABS: Lactic Acid 1.4 mmol/L (0.4-2.0)
[2018-08-17 16:22] LABS: AST(SGOT) 41 U/L (15-37); Alanine Aminotransfer ALT/SGPT 54 U/L (16-61); Albumin, Serum 3.2 g/dL (3.2-5.0); Alkaline Phosphatase 164 U/L (45-117); Bilirubin, Direct 0.33 mg/dL (0.00-0.30); Globulin 5.7 g/dL (2.2-4.2); Protein, Total 8.9 g/dL (6.4-8.2)
[2018-08-17] MEDS: levoFLOXacin IV 750 MG/150 ML BAG 100 MG IV (16:29)
--- NOTE | 2018-08-17 17:24 | RAD_ITS ---
STUDY: X-RAY - ABDOMEN/PELVIS REASON FOR EXAM: Male, 43 years old. Orogastric tube placement verification. TECHNIQUE: Single AP view of the abdomen / pelvis. COMPARISON: Earlier in the day. FINDINGS: Orogastric tube has been placed with the tip projected over the duodenal bulb. There is an unremarkable bowel gas pattern. There is no demonstrated free abdominal air. The visualized liver, spleen and kidneys are grossly normal in size and morphology. Normal soft tissue structures. Normal visualized osseous structures. There is increased interstitial markings diffusely in the chest. RAD/Abdomen Single View (Portable) IMPRESSION: Tip of orogastric tube projected over the duodenal bulb. Electronically Signed: Brat Cervantes MD at 20:14 EST , Service support ,
--- NOTE | 2018-08-17 17:24 | ECHOCS_ITS ---
Reason For Study: HYPERTENSION Procedure This was a 2D Doppler, Color Flow transthoracic echocardiogram. The study was technically difficult. Contrast injection was performed. Exam performed portable in ICU/CCU. Left Ventricle Normal LV size. Left ventricular systolic function is normal. The estimated ejection fraction is 70 %. Unable to assess diastolic dysfunction. No regional wall motion abnormalities noted. Right Ventricle Normal RV size. Normal systolic function. Atria The left atrium is mildly enlarged. Normal right atrium. No doppler evidence for ASD. Mitral Valve There is no mitral annular calcification. Normal mitral valve. Trivial mitral valve insufficiency. Tricuspid Valve Normal tricuspid valve. Trivial tricuspid valve insufficiency. Right ventricular systolic pressure estimated to be 28 mmHg. Aortic Valve Trisinus/trileaflet aortic valve. Mild focal aortic valve thickening. Pulmonic Valve The pulmonic valve is not well visualized. Great Vessels Normal sized aortic root. Pericardium/Pleural No pericardial effusion. Medication Diluted definity 2ml given slow IV push to enhance endocardial definition. MMode/2D Measurements & Calculations LVIDd: 4.4 cm IVSd: 1.1 cm Ao root diam: 3.2 cm LVIDs: 2.6 cm LVPWd: 1.3 cm FS: 41.4 % LVAd ap4: 47.7 cm2 SV(MOD-sp4): 143.4 ml SV(sp4-el): 150.7 ml EDV(MOD-sp4): 204.0 ml EDV(sp4-el): 212.5 ml LVAs ap4: 22.6 cm2 ESV(MOD-sp4): 60.6 ml ESV(sp4-el): 61.8 ml EF(MOD-sp4): 70.3 % EF(sp4-el): 70.9 % LA dimension(2D): 3.6 cm Doppler Measurements & Calculations MV E max jessica: 87.9 cm/sec Ao V2 max: 183.4 cm/sec LV V1 max: 130.5 cm/sec MV A max jessica: 88.7 cm/sec Ao max P.5 mmHg LV V1 max P.8 mmHg MV E/A: 0.99 PA V2 max: 184.5 cm/sec TR max jessica: 250.3 cm/sec TR max P.1 mmHg Interpretation Summary The study was technically difficult. Contrast injection was performed. Left ventricular systolic function is normal. The estimated ejection fraction is 70 %. The left atrium is mildly enlarged. Trivial mitral valve insufficiency. Trivial tricuspid valve insufficiency. Mild focal aortic valve thickening. Right ventricular systolic pressure estimated to be 28 mmHg. Unable to assess diastolic dysfunction. Ordering Physician: Aurelio Felton Referring Physician: SENDY GAONA Performed By: Sugey Garcias RDCS
[2018-08-17 18:10] LABS: Thyroid Stim Hormone (TSH) 0.99 uIU/mL (0.358-3.74)
[2018-08-17] MEDS: fentaNYL drip 100 ML 5 MCG IV (18:54)
[2018-08-17] MEDS: 0.9% Normal Saline 1,000 ML 999 ML IV (19:05)
[2018-08-17] MEDS: Ipratropium/Albuterol Sulfate 3 ML AMPUL.NEB INHALATION ×2 (19:05→23:09)
[2018-08-17] MEDS: Ceftriaxone 1 GM/50 ML BAG IV (19:33)
[2018-08-17 19:59] LABS: M R Staph aureus DNA By PCR Negative (Negative); Probe Check PASS; Specimen Processing Control PASS
[2018-08-17] MEDS: 0.9% NaCl Peripheral Flush Adult/Peds IV ×2 (21:19→23:02)
[2018-08-17] MEDS: Chlorhexidine 15 ML PO (21:22)
[2018-08-17 23:40] LABS: Bedside Glucose 206 mg/dL (70-110)
[2018-08-17] MEDS: Insulin Lispro 100 UNIT/ML INSULN.PEN SQ (23:40)
[2018-08-18] VITALS (36 sets, daily range): BP systolic 103–140; BP diastolic 37–63; PULSE 69–90; RESP 16–21; TEMP 37.2–37.8; O2SAT 92–98
[2018-08-18] MEDS: Ipratropium/Albuterol Sulfate 3 ML AMPUL.NEB INHALATION ×6 (03:15→23:35)
[2018-08-18] MEDS: Propofol 10MG/Ml 1,000 MG/100 ML Bottle 8.442 MG CONT INF ×5 (03:43→23:21)
[2018-08-18 05:55] LABS: Hematocrit 38.3 % (40-54); Hemoglobin 12.8 g/dl (13.0-16.5); Mean Corp Hgb Conc 33.4 g/gl (32-36); Mean Corpuscular Hgb 32.6 pg (27.0-32.0); Mean Corpuscular Volume 97.5 fL (80-94); Mean Platelet Vol. 12.1 fl (6.2-12.0); Platelet Count 158 K/mm3 (150-450); RBC Distribution Width CV 13.9 % (11.6-14.6); Red Blood Count 3.93 M/mm3 (4.6-6.2); White Blood Count 9.2 K/mm3 (4.4-11.0)
[2018-08-18 05:56] LABS: Bedside Glucose 132 mg/dL (70-110)
--- NOTE | 2018-08-18 06:45 | PCM.CON.CC ---
Reason for Consult Date of Consultation: 08/18/18 Reason for Consultation: Respiratory failure History of Present Illness: The patient is a 43-year-old male, with a history as outlined below, who presented to the emergency department on August 17 with complaints of shortness of breath and productive cough. The patient had a recent laparoscopic hernia repair approximately [address] Avitia. The patient's operative course was noted to be uncomplicated. On presentation to the emergency department, the patient was noted to be afebrile but profoundly hypertensive with a blood pressure documented to be 232/83. He was initially hypoxic on room air. Laboratory evaluation revealed elevated white blood cell count to 17,000. Coags were within normal limits. Chemistry profile was largely unremarkable. Serum lactate was within normal limits. Initial troponin was negative. A CTA chest was obtained which revealed limited enhancement of the bilateral peripheral pulmonary arteries. Bilateral groundglass opacities were noted, along with incidental finding of splenomegaly, splenic varices and paraesophageal varices. The patient did require emergent intubation in the emergency department due to hypoxic respiratory failure. The patient was given a large dose of IV Lasix, 80 mg. The patient was also started on Levaquin and IV nitroglycerin. The patient was noted to drop his blood pressure upon receiving the aforementioned medications. He received a normal saline bolus and was subsequently transferred to the medical intensive care unit. Due to concerns for potential drug interaction, the patient's Levaquin was discontinued. He was then started on azithromycin and ceftriaxone. Past Medical History Past Medical History (Chronic Problems): Chronic Problems Borderline diabetes (Chronic) Hyperlipidemia (Chronic) Obesity (Chronic) Benign essential HTN (Chronic) Allergies codeine Adverse Reaction (Verified 08/17/18 14:02) Other Home Medications: Ambulatory Orders Medication Instructions Recorded Lisinopril [Zestril] 20 mg PO DAILY #30 tablet 02/13/15 Acetaminophen [Tylenol] 500 - 1,000 mg PO Q6H PRN PRN 02/13/17 Atorvastatin Calcium [Lipitor] 20 mg PO QHS 02/13/17 Metformin HCl [Metformin HCl ER] 500 mg PO BID 02/13/17 Oxycodone [Oxyir] 5 mg PO Q4H PRN PRN #30 tablet 02/19/17 Surgical History: herniorrhaphy, - - He has had a fracture of the distal RLE in the past and has rods and screws. Psychiatric History: No pertinent psych hx Smoking Status: Former smoker Alcohol: None Drugs: None - *Family History Maternal History Items: High Cholesterol, Hypertension Paternal History Items: High Cholesterol, Hypertension Review of Systems Unable to obtain accurate/complete ROS d/t: Current intubation and mechanical ventilation status Patient Problems: Active and Suspected Problems Hypertensive emergency (Acute) Flash pulmonary edema (Acute) S/P inguinal hernia repair (Acute) Objective: The patient's most recent lab work, culture data and imaging studies have all been personally reviewed. Strep and urine Legionella antigens were both negative. Blood, urine and sputum cultures are pending. - Physical Exam General: - - Intubated, sedated and mechanically ventilated. Morbidly obese. HEENT: Atraumatic, PERRLA, Normocephalic Oral: No Gingival or Mucosal Lesions/ Ulcerations, - - Endotracheal and OG tubes in place. Neck: Supple, No Nodes, Trachea Midline Lungs: No rhonchi, No wheeze, No rales, Diminished Cardiovascular: Regular rate, Regular Rhythm, Normal S1, Normal S2, No murmurs Abdomen: Bowel Sounds Present, Soft, Non Tender, Obese Extremities: No clubbing, No cyanosis, No edema Skin: - - Left-sided pretibial erythema Musculoskeletal: No Muscle Wasting Lymphatic: No Cervical, Supraclavicular, or Inguinal Adenopathy Neurological: - - No focal neurological deficits. Currently sedated with a RASS of -1. Vital Signs Temp Pulse Resp BP Pulse Ox 37.2 C 73 16 124/57 H 97 08/18/18 06:00 08/18/18 06:00 08/18/18 06:00 08/18/18 06:00 08/18/18 06:00 Oxygen Flow Rate (L/min) 15 Oxygen Delivery Method Mechanical Ventilator Weight: 316 lb 2.286 oz Body Mass Index (BMI) 43.4 Finger Stick Blood Glucose 174 Intake and Output for Last 24 Hours 08/16/18 08/17/18 08/18/18 23:59 23:59 23:59 Intake Total 1966 / 1966 407 / 407 Output Total 830 / 830 300 / 300 Balance 1137 / 1137 107 / 107 Microbiology Past 72 Hours 08/17/18 17:30 Legionella Antigen - Final Urine Catheter - Catheter 08/17/18 17:30 Streptococcus pneumoniae Antigen (M - Final Urine Catheter - Catheter Laboratory Tests Past 24 Hrs 08/17/18 08/17/18 08/17/18 13:54 13:54 13:54 WBC 16.8 H RBC 4.76 Hgb 15.6 Hct 45.2 MCV 95.0 H MCH 32.8 H MCHC 34.5 RDW 13.3 RDW Differential 44.4 H Plt Count 206 MPV 12.2 H Immature Gran % (Auto) 0.300 Neut % (Auto) 93.3 H Lymph % (Auto) 4.2 L [place] % (Auto) 1.7 Eos % (Auto) 0.4 Baso % (Auto) 0.1 Absolute Neuts (auto) 15.6 H Absolute Lymphs (auto) 0.70 L Total Counted Not Reportable PT 14.7 INR 1.2 APTT 28.2 Specimen Type Sample Site pH Bicarbonate Actual POC Total CO2 Base Excess O2 Saturation O2 % ABG pCO2 ABG pO2 Cheng Test Respiration Rate O2 Delivery Device Vent Mode Tidal Volume POC PEEP Blood Gas Notified Whom Blood Gas Notified Time Sodium 137 Potassium 3.9 Chloride 103 Carbon Dioxide 25.0 Anion Gap 9 BUN 15 Creatinine 0.72 Estim Creat Clear Calc 142.35 Est GFR (MDRD) Af Amer 154 Est GFR (MDRD) Non-Af 127 BUN/Creatinine Ratio 20.8 H Glucose 211 H Lactic Acid Calcium 8.7 Total Bilirubin Direct Bilirubin AST ALT Alkaline Phosphatase Troponin I 0.019 B-Natriuretic Peptide Total Protein Albumin Globulin Triglycerides Cholesterol LDL Cholesterol VLDL Cholesterol HDL Cholesterol TSH Urine Color Urine Clarity Urine pH Ur Specific [place] Urine Protein Urine Glucose (UA) Urine Ketones Urine Occult Blood Urine Nitrite Urine Bilirubin Urine Urobilinogen Ur Leukocyte Esterase Urine RBC Urine WBC Ur Squamous Epith Cells Urine Bacteria Urine Mucus MRSA (PCR) 08/17/18 08/17/18 08/17/18 13:54 13:54 15:45 WBC RBC Hgb Hct MCV MCH MCHC RDW RDW Differential Plt Count MPV Immature Gran % (Auto) Neut % (Auto) Lymph % (Auto) [place] % (Auto) Eos % (Auto) Baso % (Auto) Absolute Neuts (auto) Absolute Lymphs (auto) Total Counted PT INR APTT Specimen Type Sample Site pH Bicarbonate Actual POC Total CO2 Base Excess O2 Saturation O2 % ABG pCO2 ABG pO2 Cheng Test Respiration Rate O2 Delivery Device Vent Mode Tidal Volume POC PEEP Blood Gas Notified Whom Blood Gas Notified Time Sodium Potassium Chloride Carbon Dioxide Anion Gap BUN Creatinine Estim Creat Clear Calc Est GFR (MDRD) Af Amer Est GFR (MDRD) Non-Af BUN/Creatinine Ratio Glucose Lactic Acid Calcium Total Bilirubin 1.10 H Direct Bilirubin 0.33 H AST 41 H ALT 54 Alkaline Phosphatase 164 H Troponin I B-Natriuretic Peptide 38.8 Total Protein 8.9 H Albumin 3.2 Globulin 5.7 H Triglycerides Cholesterol LDL Cholesterol VLDL Cholesterol HDL Cholesterol TSH 0.99 Urine Color Urine Clarity Urine pH Ur Specific [place] Urine Protein Urine Glucose (UA) Urine Ketones Urine Occult Blood Urine Nitrite Urine Bilirubin Urine Urobilinogen Ur Leukocyte Esterase Urine RBC Urine WBC Ur Squamous Epith Cells Urine Bacteria Urine Mucus MRSA (PCR) 08/17/18 08/17/18 08/17/18 15:45 15:50 16:01 WBC RBC Hgb Hct MCV MCH MCHC RDW RDW Differential Plt Count MPV Immature Gran % (Auto) Neut % (Auto) Lymph % (Auto) [place] % (Auto) Eos % (Auto) Baso % (Auto) Absolute Neuts (auto) Absolute Lymphs (auto) Total Counted PT INR APTT Specimen Type ART Sample Site L Radial pH 7.29 L Bicarbonate Actual 29.5 H POC Total CO2 31 Base Excess 3 H O2 Saturation 99 O2 % 100 ABG pCO2 61.5 H ABG pO2 179 H Cheng Test POS Respiration Rate 16 O2 Delivery Device Vent Vent Mode A-C Tidal Volume 450 POC PEEP 10 Blood Gas Notified Whom ED Blood Gas Notified Time 1558 Sodium Potassium Chloride Carbon Dioxide Anion Gap BUN Creatinine Estim Creat Clear Calc Est GFR (MDRD) Af Amer Est GFR (MDRD) Non-Af BUN/Creatinine Ratio Glucose Lactic Acid 1.4 Calcium Total Bilirubin Direct Bilirubin AST ALT Alkaline Phosphatase Troponin I B-Natriuretic Peptide Total Protein Albumin Globulin Triglycerides Cholesterol LDL Cholesterol VLDL Cholesterol HDL Cholesterol TSH Urine Color Yellow Urine Clarity Clear Urine pH 5.0 Ur Specific [place] 1.010 Urine Protein 30 H Urine Glucose (UA) Normal Urine Ketones Negative Urine Occult Blood 150 H Urine Nitrite Negative Urine Bilirubin Negative Urine Urobilinogen Normal Ur Leukocyte Esterase Negative Urine RBC 0-5 SEEN Urine WBC 0 SEEN Ur Squamous Epith Cells 0-5 SEEN Urine Bacteria 0 SEEN Urine Mucus 0 SEEN MRSA (PCR) 08/17/18 08/17/18 08/17/18 17:30 20:25 23:31 WBC RBC Hgb Hct MCV MCH MCHC RDW RDW Differential Plt Count MPV Immature Gran % (Auto) Neut % (Auto) Lymph % (Auto) [place] % (Auto) Eos % (Auto) Baso % (Auto) Absolute Neuts (auto) Absolute Lymphs (auto) Total Counted PT INR APTT Specimen Type Sample Site pH Bicarbonate Actual POC Total CO2 Base Excess O2 Saturation O2 % ABG pCO2 ABG pO2 Cheng Test Respiration Rate O2 Delivery Device Vent Mode Tidal Volume POC PEEP Blood Gas Notified Whom Blood Gas Notified Time Sodium Potassium Chloride Carbon Dioxide Anion Gap BUN Creatinine Estim Creat Clear Calc Est GFR (MDRD) Af Amer Est GFR (MDRD) Non-Af BUN/Creatinine Ratio Glucose Lactic Acid Calcium Total Bilirubin Direct Bilirubin AST ALT Alkaline Phosphatase Troponin I 0.220 H 0.314 H B-Natriuretic Peptide Total Protein Albumin Globulin Triglycerides Cholesterol LDL Cholesterol VLDL Cholesterol HDL Cholesterol TSH Urine Color Urine Clarity Urine pH Ur Specific [place] Urine Protein Urine Glucose (UA) Urine Ketones Urine Occult Blood Urine Nitrite Urine Bilirubin Urine Urobilinogen Ur Leukocyte Esterase Urine RBC Urine WBC Ur Squamous Epith Cells Urine Bacteria Urine Mucus MRSA (PCR) Negative 08/18/18 08/18/18 08/18/18 02:28 05:20 05:20 WBC Pending RBC Pending Hgb Pending Hct Pending MCV Pending MCH Pending MCHC Pending RDW Pending RDW Differential Pending Plt Count Pending MPV Immature Gran % (Auto) Neut % (Auto) Lymph % (Auto) [place] % (Auto) Eos % (Auto) Baso % (Auto) Absolute Neuts (auto) Absolute Lymphs (auto) Total Counted PT INR APTT Specimen Type Sample Site pH Bicarbonate Actual POC Total CO2 Base Excess O2 Saturation O2 % ABG pCO2 ABG pO2 Cheng Test Respiration Rate O2 Delivery Device Vent Mode Tidal Volume POC PEEP Blood Gas Notified Whom Blood Gas Notified Time Sodium Pending Potassium Pending Chloride Pending Carbon Dioxide Pending Anion Gap Pending BUN Pending Creatinine Pending Estim Creat Clear Calc Est GFR (MDRD) Af Amer Pending Est GFR (MDRD) Non-Af Pending BUN/Creatinine Ratio Pending Glucose Pending Lactic Acid Calcium Pending Total Bilirubin Direct Bilirubin AST ALT Alkaline Phosphatase Troponin I 0.390 H Pending B-Natriuretic Peptide Total Protein Albumin Globulin Triglycerides Pending Cholesterol Pending LDL Cholesterol Pending VLDL Cholesterol Pending HDL Cholesterol Pending TSH Urine Color Urine Clarity Urine pH Ur Specific [place] Urine Protein Urine Glucose (UA) Urine Ketones Urine Occult Blood Urine Nitrite Urine Bilirubin Urine Urobilinogen Ur Leukocyte Esterase Urine RBC Urine WBC Ur Squamous Epith Cells Urine Bacteria Urine Mucus MRSA (PCR) POC Glucose 08/18/18 08/17/18 05:52 23:37 POC Glucose 132 H 206 H Clinical Impression(s) from Imaging Studies Chest X-Ray 08/17/18 13:58 IMPRESSION: Low lung volumes. Grossly clear lungs. Electronically Signed: Patrice Roth, at 14:26 EST Tel , Service support , Chest CTA 08/17/18 14:07 IMPRESSION: No large central pulmonary embolism. Extensive multi focal lung disease. Leading differential considerations are infectious disease and pulmonary edema. N.B. : The above information has been verbally conveyed by Pillo Streeter MD to MORENA Wheeler, on 08/17/2018 15:49:36 (ET). Electronically Signed: Pillo Streeter MD at 14:54 EST Tel , Service support , ADDENDUM: 08/17/18 1607 Chest X-Ray 08/17/18 14:55 IMPRESSION: The endotracheal tube is high and should be advanced at least 6 cm. The tube is now nearly 11 cm above the sameera and above the clavicles. Consider edema and/or diffuse atypical infiltrates. N.B. : The above information has been verbally conveyed by Indiana Flores MD to DR ANA MATOS MD, on 08/17/2018 15:54:30 (ET). Electronically Signed: Indiana Flores MD at 15:43 EST Tel , Service support , KUB X-Ray 08/17/18 17:24 IMPRESSION: Tip of orogastric tube projected over the duodenal bulb. Electronically Signed: Bart Cervanets MD at 20:14 EST , Service support , Assessment/Plan Active and Suspected Problems Hypertensive emergency (Acute) Flash pulmonary edema (Acute) S/P inguinal hernia repair (Acute) RECOMMENDATIONS: 1. Wean FiO2 and PEEP as tolerated to maintain an oxygen saturation at or above 90%. 2. Continue antihypertensive regimen per cardiology recommendations. 3. Await surface echocardiogram. 4. Continue antibiotics for an additional 24 hours, pending finalized infectious workup. 5. Plan for daily paired spontaneous awakening and breathing trials beginning tomorrow morning. 6. Start tube feeds today and initiate Accu-Cheks and sliding scale insulin coverage. 7. Continue Lovenox and Pepcid for prophylaxis. IMPRESSIONS: 1. Acute hypoxemic respiratory failure with concern for flash pulmonary edema The patient initially presented to the hospital with hypertensive emergency and what appeared to be flash pulmonary edema, necessitating emergent intubation. His hemodynamics have improved and his ventilator requirements are minimal. Low clinical index of suspicion for underlying pulmonary infectious process, however, the patient will be continued on antibiotics pending finalized infectious workup. Continue to wean FiO2 and PEEP as tolerated to maintain an oxygen saturation at or above 90%. Okay to begin tube feeds today. Plan for daily paired spontaneous awakening and breathing trials beginning tomorrow. Continue antihypertensives per cardiology recommendations. 2. Hypertensive emergency The patient's hemodynamics have stabilized since his initial admission. He is no longer requiring a nitro infusion. Continue antihypertensive regimen per cardiology recommendations. Wean sedation as tolerated. 3. Troponin elevation Likely secondary to demand ischemia in the setting of the above. However, cardiology is following so will defer management to them accordingly. Surface echocardiogram is currently pending. 4. Morbid obesity/hypertension/hyperlipidemia/diabetes Complicates care, management, recovery and prognosis. Hold metformin and initiate Accu-Cheks and sliding scale insulin coverage. Okay to start tube feeds today from my perspective. TIME: 45 minutes of critical care time, independent of procedures, was spent addressing the patient's acute hypoxemic respiratory failure, hypertensive emergency, troponin elevation, review of all data and collaboration with the care team. ([id number]) Code Visit [id number]: [id number] Critical care first hour
[2018-08-18 06:48] LABS: Anion Gap 9 (5-15); BUN 24 mg/dL (7-18); BUN/Creat Ratio 22.4 RATIO (10-20); Calcium,Total 7.6 mg/dL (8.5-10.1); Chloride 105 mmol/L (98-107); Cholesterol 125 mg/dL (200); Creatinine, Serum 1.07 mg/dL (0.70-1.30); EST Glomerular Filtration Rate 80 mL/min (>60); Est Glom Filt Rate - Afr Amer 97 mL/min (>60); Estimated Creatinine Clearance 95.79 ml/min; Glucose 125 mg/dL (74-106); High Density Lipoprotein 30 mg/dL; Potassium 6.1 mmol/L (3.5-5.1); Sodium Level 140 mmol/L (136-145); Triglycerides 123 mg/dL; Very Low Density Lipoprotein 25 mg/dL (5-40)
--- NOTE | 2018-08-18 06:53 | CON.PCM_ITS ---
Reason for Consult Date of Consultation: 08/18/18 Reason for Consultation: Respiratory failure History of Present Illness: The patient is a 43-year-old male, with a history as outlined below, who presented to the emergency department on August 17 with complaints of shortness of breath and productive cough. The patient had a recent laparoscopic hernia repair approximately [address] Avitia. The patient's operative course was noted to be uncomplicated. On presentation to the emergency department, the patient was noted to be afebrile but profoundly hypertensive with a blood pressure documented to be 232/83. He was initially hypoxic on room air. Laboratory evaluation revealed e levated white blood cell count to 17,000. Coags were within normal limits. Chemistry profile was largely unremarkable. Serum lactate was within normal limits. Initial troponin was negative. A CTA chest was obtained which revealed limited enhancement of the bilateral peripheral pulmonary arteries. Bilateral groundglass opacities were noted, along with incidental finding of splenomegaly, splenic varices and paraesophageal varices. The patient did require emergent intubation in the emergency department due to hypoxic respiratory failure. The patient was given a large dose of IV Lasix, 80 mg. The patient was also started on Levaquin and IV nitroglycerin. The patient was noted to drop his blood pressure upon receiving the aforementioned medications. He received a normal saline bolus and was subsequently transferred to the medical intensive care unit. Due to concerns for potential drug interaction, the patient's Levaquin was discontinued. He was then started on azithromycin and ceftriaxone. Past Medical History Past Medical History (Chronic Problems): Chronic Problems Borderline diabetes (Chronic) Hyperlipidemia (Chronic) Obesity (Chronic) Benign essential HTN (Chronic) Allergies codeine Adverse Reaction (Verified 08/17/18 14:02) Other Home Medications: Ambulatory Orders Medication Instructions Recorded Lisinopril [Zestril] 20 mg PO DAILY #30 tablet 02/13/15 Acetaminophen [Tylenol] 500 - 1,000 mg PO Q6H PRN PRN 02/13/17 Atorvastatin Calcium [Lipitor] 20 mg PO QHS 02/13/17 Metformin HCl [Metformin HCl ER] 500 mg PO BID 02/13/17 Oxycodone [Oxyir] 5 mg PO Q4H PRN PRN #30 tablet 02/19/17 Surgical History: herniorrhaphy, - - He has had a fracture of the distal RLE in the past and has rods and screws. Psychiatric History: No pertinent psych hx Smoking Status: Former smoker Alcohol: None Drugs: None - *Family History Maternal History Items: High Cholesterol, Hypertension Paternal History Items: High Cholesterol, Hypertension Review of Systems Unable to obtain accurate/complete ROS d/t: Current intubation and mechanical ventilation status Patient Problems: Active and Suspected Problems Hypertensive emergency (Acute) Flash pulmonary edema (Acute) S/P inguinal hernia repair (Acute) Objective: The patient's most recent lab work, culture data and imaging studies have all been personally reviewed. Strep and urine Legionella antigens were both negative. Blood, urine and sputum cultures are pending. - Physical Exam General: - - Intubated, sedated and mechanically ventilated. Morbidly obese. HEENT: Atraumatic, PERRLA, Normocephalic Oral: No Gingival or Mucosal Lesions/ Ulcerations, - - Endotracheal and OG tubes in place. Neck: Supple, No Nodes, Trachea Midline Lungs: No rhonchi, No wheeze, No rales, Diminished Cardiovascular: Regular rate, Regular Rhythm, Normal S1, Normal S2, No murmurs Abdomen: Bowel Sounds Present, Soft, Non Tender, Obese Extremities: No clubbing, No cyanosis, No edema Skin: - - Left-sided pretibial erythema Musculoskeletal: No Muscle Wasting Lymphatic: No Cervical, Supraclavicular, or Inguinal Adenopathy Neurological: - - No focal neurological deficits. Currently sedated with a RASS of -1. Vital Signs Temp Pulse Resp BP Pulse Ox 37.2 C 73 16 124/57 H 97 08/18/18 06:00 08/18/18 06:00 08/18/18 06:00 08/18/18 06:00 08/18/18 06:00 Oxygen Flow Rate (L/min) 15 Oxygen Delivery Method Mechanical Ventilator Weight: 316 lb 2.286 oz Body Mass Index (BMI) 43.4 Finger Stick Blood Glucose 174 Intake and Output for Last 24 Hours 08/16/18 08/17/18 08/18/18 23:59 23:59 23:59 Intake Total 1966 / 1966 407 / 407 Output Total 830 / 830 300 / 300 Balance 1137 / 1137 107 / 107 Microbiology Past 72 Hours 08/17/18 17:30 Legionella Antigen - Final Urine Catheter - Catheter 08/17/18 17:30 Streptococcus pneumoniae Antigen (M - Final Urine Catheter - Catheter Laboratory Tests Past 24 Hrs 08/17/18 08/17/18 08/17/18 13:54 13:54 13:54 WBC 16.8 H RBC 4.76 Hgb 15.6 Hct 45.2 MCV 95.0 H MCH 32.8 H MCHC 34.5 RDW 13.3 RDW Differential 44.4 H Plt Count 206 MPV 12.2 H Immature Gran % (Auto) 0.300 Neut % (Auto) 93.3 H Lymph % (Auto) 4.2 L [place] % (Auto) 1.7 Eos % (Auto) 0.4 Baso % (Auto) 0.1 Absolute Neuts (auto) 15.6 H Absolute Lymphs (auto) 0.70 L Total Counted Not Reportable PT 14.7 INR 1.2 APTT 28.2 Specimen Type Sample Site pH Bicarbonate Actual POC Total CO2 Base Excess O2 Saturation O2 % ABG pCO2 ABG pO2 Cheng Test Respiration Rate O2 Delivery Device Vent Mode Tidal Volume POC PEEP Blood Gas Notified Whom Blood Gas Notified Time Sodium 137 Potassium 3.9 Chloride 103 Carbon Dioxide 25.0 Anion Gap 9 BUN 15 Creatinine 0.72 Estim Creat Clear Calc 142.35 Est GFR (MDRD) Af Amer 154 Est GFR (MDRD) Non-Af 127 BUN/Creatinine Ratio 20.8 H Glucose 211 H Lactic Acid Calcium 8.7 Total Bilirubin Direct Bilirubin AST ALT Alkaline Phosphatase Troponin I 0.019 B-Natriuretic Peptide Total Protein Albumin Globulin Triglycerides Cholesterol LDL Cholesterol VLDL Cholesterol HDL Cholesterol TSH Urine Color Urine Clarity Urine pH Ur Specific [place] Urine Protein Urine Glucose (UA) Urine Ketones Urine Occult Blood Urine Nitrite Urine Bilirubin Urine Urobilinogen Ur Leukocyte Esterase Urine RBC Urine WBC Ur Squamous Epith Cells Urine Bacteria Urine Mucus MRSA (PCR) 08/17/18 08/17/18 08/17/18 13:54 13:54 15:45 WBC RBC Hgb Hct MCV MCH MCHC RDW RDW Differential Plt Count MPV Immature Gran % (Auto) Neut % (Auto) Lymph % (Auto) [place] % (Auto) Eos % (Auto) Baso % (Auto) Absolute Neuts (auto) Absolute Lymphs (auto) Total Counted PT INR APTT Specimen Type Sample Site pH Bicarbonate Actual POC Total CO2 Base Excess O2 Saturation O2 % ABG pCO2 ABG pO2 Cheng Test Respiration Rate O2 Delivery Device Vent Mode Tidal Volume POC PEEP Blood Gas Notified Whom Blood Gas Notified Time Sodium Potassium Chloride Carbon Dioxide Anion Gap BUN Creatinine Estim Creat Clear Calc Est GFR (MDRD) Af Amer Est GFR (MDRD) Non-Af BUN/Creatinine Ratio Glucose Lactic Acid Calcium Total Bilirubin 1.10 H Direct Bilirubin 0.33 H AST 41 H ALT 54 Alkaline Phosphatase 164 H Troponin I B-Natriuretic Peptide 38.8 Total Protein 8.9 H Albumin 3.2 Globulin 5.7 H Triglycerides Cholesterol LDL Cholesterol VLDL Cholesterol HDL Cholesterol TSH 0.99 Urine Color Urine Clarity Urine pH Ur Specific [place] Urine Protein Urine Glucose (UA) Urine Ketones Urine Occult Blood Urine Nitrite Urine Bilirubin Urine Urobilinogen Ur Leukocyte Esterase Urine RBC Urine WBC Ur Squamous Epith Cells Urine Bacteria Urine Mucus MRSA (PCR) 08/17/18 08/17/18 08/17/18 15:45 15:50 16:01 WBC RBC Hgb Hct MCV MCH MCHC RDW RDW Differential Plt Count MPV Immature Gran % (Auto) Neut % (Auto) Lymph % (Auto) [place] % (Auto) Eos % (Auto) Baso % (Auto) Absolute Neuts (auto) Absolute Lymphs (auto) Total Counted PT INR APTT Specimen Type ART Sample Site L Radial pH 7.29 L Bicarbonate Actual 29.5 H POC Total CO2 31 Base Excess 3 H O2 Saturation 99 O2 % 100 ABG pCO2 61.5 H ABG pO2 179 H Cheng Test POS Respiration Rate 16 O2 Delivery Device Vent Vent Mode A-C Tidal Volume 450 POC PEEP 10 Blood Gas Notified Whom ED Blood Gas Notified Time 1558 Sodium Potassium Chloride Carbon Dioxide Anion Gap BUN Creatinine Estim Creat Clear Calc Est GFR (MDRD) Af Amer Est GFR (MDRD) Non-Af BUN/Creatinine Ratio Glucose Lactic Acid 1.4 Calcium Total Bilirubin Direct Bilirubin AST ALT Alkaline Phosphatase Troponin I B-Natriuretic Peptide Total Protein Albumin Globulin Triglycerides Cholesterol LDL Cholesterol VLDL Cholesterol HDL Cholesterol TSH Urine Color Yellow Urine Clarity Clear Urine pH 5.0 Ur Specific [place] 1.010 Urine Protein 30 H Urine Glucose (UA) Normal Urine Ketones Negative Urine Occult Blood 150 H Urine Nitrite Negative Urine Bilirubin Negative Urine Urobilinogen Normal Ur Leukocyte Esterase Negative Urine RBC 0-5 SEEN Urine WBC 0 SEEN Ur Squamous Epith Cells 0-5 SEEN Urine Bacteria 0 SEEN Urine Mucus 0 SEEN MRSA (PCR) 08/17/18 08/17/18 08/17/18 17:30 20:25 23:31 WBC RBC Hgb Hct MCV MCH MCHC RDW RDW Differential Plt Count MPV Immature Gran % (Auto) Neut % (Auto) Lymph % (Auto) [place] % (Auto) Eos % (Auto) Baso % (Auto) Absolute Neuts (auto) Absolute Lymphs (auto) Total Counted PT INR APTT Specimen Type Sample Site pH Bicarbonate Actual POC Total CO2 Base Excess O2 Saturation O2 % ABG pCO2 ABG pO2 Cheng Test Respiration Rate O2 Delivery Device Vent Mode Tidal Volume POC PEEP Blood Gas Notified Whom Blood Gas Notified Time Sodium Potassium Chloride Carbon Dioxide Anion Gap BUN Creatinine Estim Creat Clear Calc Est GFR (MDRD) Af Amer Est GFR (MDRD) Non-Af BUN/Creatinine Ratio Glucose Lactic Acid Calcium Total Bilirubin Direct Bilirubin AST ALT Alkaline Phosphatase Troponin I 0.220 H 0.314 H B-Natriuretic Peptide Total Protein Albumin Globulin Triglycerides Cholesterol LDL Cholesterol VLDL Cholesterol HDL Cholesterol TSH Urine Color Urine Clarity Urine pH Ur Specific [place] Urine Protein Urine Glucose (UA) Urine Ketones Urine Occult Blood Urine Nitrite Urine Bilirubin Urine Urobilinogen Ur Leukocyte Esterase Urine RBC Urine WBC Ur Squamous Epith Cells Urine Bacteria Urine Mucus MRSA (PCR) Negative 08/18/18 08/18/18 08/18/18 02:28 05:20 05:20 WBC Pending RBC Pending Hgb Pending Hct Pending MCV Pending MCH Pending MCHC Pending RDW Pending RDW Differential Pending Plt Count Pending MPV Immature Gran % (Auto) Neut % (Auto) Lymph % (Auto) [place] % (Auto) Eos % (Auto) Baso % (Auto) Absolute Neuts (auto) Absolute Lymphs (auto) Total Counted PT INR APTT Specimen Type Sample Site pH Bicarbonate Actual POC Total CO2 Base Excess O2 Saturation O2 % ABG pCO2 ABG pO2 Cheng Test Respiration Rate O2 Delivery Device Vent Mode Tidal Volume POC PEEP Blood Gas Notified Whom Blood Gas Notified Time Sodium Pending Potassium Pending Chloride Pending Carbon Dioxide Pending Anion Gap Pending BUN Pending Creatinine Pending Estim Creat Clear Calc Est GFR (MDRD) Af Amer Pending Est GFR (MDRD) Non-Af Pending BUN/Creatinine Ratio Pending Glucose Pending Lactic Acid Calcium Pending Total Bilirubin Direct Bilirubin AST ALT Alkaline Phosphatase Troponin I 0.390 H Pending B-Natriuretic Peptide Total Protein Albumin Globulin Triglycerides Pending Cholesterol Pending LDL Cholesterol Pending VLDL Cholesterol Pending HDL Cholesterol Pending TSH Urine Color Urine Clarity Urine pH Ur Specific [place] Urine Protein Urine Glucose (UA) Urine Ketones Urine Occult Blood Urine Nitrite Urine Bilirubin Urine Urobilinogen Ur Leukocyte Esterase Urine RBC Urine WBC Ur Squamous Epith Cells Urine Bacteria Urine Mucus MRSA (PCR) POC Glucose 08/18/18 08/17/18 05:52 23:37 POC Glucose 132 H 206 H Clinical Impression(s) from Imaging Studies Chest X-Ray 08/17/18 13:58 IMPRESSION: Low lung volumes. Grossly clear lungs. Electronically Signed: Patrice Gonzalez, at 14:26 EST Tel , Service support , Chest CTA 08/17/18 14:07 IMPRESSION: No large central pulmonary embolism. Extensive multi focal lung disease. Leading differential considerations are infectious disease and pulmonary edema. N.B. : The above information has been verbally conveyed by Pillo Streeter MD to MORENA Wheeler, on 08/17/2018 15:49:36 (ET). Electronically Signed: Pillo Streeter MD at 14:54 EST Tel , Service support , ADDENDUM: 08/17/18 1607 Chest X-Ray 08/17/18 14:55 IMPRESSION: The endotracheal tube is high and should be advanced at least 6 cm. The tube is now nearly 11 cm above the sameera and above the clavicles. Consider edema and/or diffuse atypical infiltrates. N.B. : The above information has been verbally conveyed by Indiana Flores MD to DR ANA MATOS MD, on 08/17/2018 15:54:30 (ET). Electronically Signed: Indiana Flores MD at 15:43 EST Tel , Service support , KUB X-Ray 08/17/18 17:24 IMPRESSION: Tip of orogastric tube projected over the duodenal bulb. Electronically Signed: Bart Cervantes MD at 20:14 EST , Service support , Assessment/Plan Active and Suspected Problems Hypertensive emergency (Acute) Flash pulmonary edema (Acute) S/P inguinal hernia repair (Acute) RECOMMENDATIONS: 1. Wean FiO2 and PEEP as tolerated to maintain an oxygen saturation at or above 90%. 2. Continue antihypertensive regimen per cardiology recommendations. 3. Await surface echocardiogram. 4. Continue antibiotics for an additional 24 hours, pending finalized infectious workup. 5. Plan for daily paired spontaneous awakening and breathing trials beginning tomorrow morning. 6. Start tube feeds today and initiate Accu-Cheks and sliding scale insulin coverage. 7. Continue Lovenox and Pepcid for prophylaxis. IMPRESSIONS: 1. Acute hypoxemic respiratory failure with concern for flash pulmonary edema The patient initially presented to the hospital with hypertensive emergency and what appeared to be flash pulmonary edema, necessitating emergent intubation. His hemodynamics have improved and his ventilator requirements are minimal. Low clinical index of suspicion for underlying pulmonary infectious process, however, the patient will be continued on antibiotics pending finalized infectious workup. Continue to wean FiO2 and PEEP as tolerated to maintain an oxygen saturation at or above 90%. Okay to begin tube feeds today. Plan for daily paired spontaneous awakening and breathing trials beginning tomorrow. Continue antihypertensives per cardiology recommendations. 2. Hypertensive emergency The patient's hemodynamics have stabilized since his initial admission. He is no longer requiring a nitro infusion. Continue antihypertensive regimen per cardiology recommendations. Wean sedation as tolerated. 3. Troponin elevation Likely secondary to demand ischemia in the setting of the above. However, cardiology is following so will defer management to them accordingly. Surface echocardiogram is currently pending. 4. Morbid obesity/hypertension/hyperlipidemia/diabetes Complicates care, management, recovery and prognosis. Hold metformin and initi ate Accu-Cheks and sliding scale insulin coverage. Okay to start tube feeds today from my perspective. TIME: 45 minutes of critical care time, independent of procedures, was spent addressing the patient's acute hypoxemic respiratory failure, hypertensive emergency, troponin elevation, review of all data and collaboration with the care team. ([id number]) Code Visit 9xxxx: [id number] Critical care first hour
[2018-08-18 07:08] LABS: Scan Indicated on CBC? Y/N NO
--- NOTE | 2018-08-18 07:17 | PCM.PN.HOSP ---
Patient Problems: Active and Suspected Problems Hypertensive emergency (Acute) Flash pulmonary edema (Acute) S/P inguinal hernia repair (Acute) Subjective: Patient is was seen and examined. Intubated emergently in the emergency department. He was said to be suddenly hypotensive with start of Levaquin twice - ED and ICU. Levaquin will be listed as allergy. Otherwise, he remains on mechanical ventilatory support, vitals are stable, blood pressure improved. Vitals/I&O's: Vital Signs Temp Pulse Resp BP Pulse Ox 99 F 73 16 124/57 H 97 08/18/18 06:00 08/18/18 06:00 08/18/18 06:00 08/18/18 06:00 08/18/18 06:00 Oxygen Flow Rate (L/min) 15 Oxygen Delivery Method Mechanical Ventilator Weight: 143.4 kg Body Mass Index (BMI) 43.4 Finger Stick Blood Glucose 174 Intake and Output for Last 24 Hours 08/16/18 08/17/18 08/18/18 23:59 23:59 23:59 Intake Total 1966 / 1966 407 / 407 Output Total 830 / 830 300 / 300 Balance 1137 / 1137 107 / 107 General: Lethargic - sedated, on propofol and fentanyl, intubated, mechanical ventilator HEENT: Atraumatic, PERRLA, EOMI, Normocephalic, - - Intubated, OG tube in situ Oral: Moist Mucosa Neck: Supple, JVD, Right Lungs: Clear to auscultation, Normal air movement, Diminished - at the lung bases Cardiovascular: Regular rate, Regular Rhythm, Normal S1, Normal S2, No murmurs Abdomen: Bowel Sounds Present, Soft, Non Tender, Non-Distended, No Hepato-splenomegaly, - - Laparoscopic dressings in place, mild erythema of left periumbilical region, no drainage from incisions. Extremities: No edema Skin: - - see abdomen Musculoskeletal: No Tenderness to Palpation of Joints or Extremities Lymphatic: No Cervical, Supraclavicular, or Inguinal Adenopathy Neurological: Cranial nerves II-XII grossly intact Psych/Mental Status: Normal Affect, Appropriate Microbiology Past 72 Hours 08/17/18 17:30 Urine Catheter - Catheter Legionella Antigen - Final 08/17/18 17:30 Urine Catheter - Catheter Streptococcus pneumoniae Antigen (M - Final Laboratory Results 08/17/18 13:54: WBC 16.8 H, RBC 4.76, Hgb 15.6, Hct 45.2, MCV 95.0 H, MCH 32.8 H, MCHC 34.5, RDW 13.3, RDW Differential 44.4 H, Plt Count 206, MPV 12.2 H, Immature Gran % (Auto) 0.300, Neut % (Auto) 93.3 H, Lymph % (Auto) 4.2 L, [place] % (Auto) 1.7, Eos % (Auto) 0.4, Baso % (Auto) 0.1, Absolute Neuts (auto) 15.6 H, Absolute Lymphs (auto) 0.70 L, Total Counted Not Reportable 08/17/18 13:54: PT 14.7, INR 1.2, APTT 28.2 08/17/18 13:54: Sodium 137, Potassium 3.9, Chloride 103, Carbon Dioxide 25.0, Anion Gap 9, BUN 15, Creatinine 0.72, Estim Creat Clear Calc 142.35, Est GFR (MDRD) Af Amer 154, Est GFR (MDRD) Non-Af 127, BUN/Creatinine Ratio 20.8 H, Glucose 211 H, Calcium 8.7, Troponin I 0.019 08/17/18 13:54: B-Natriuretic Peptide 38.8 08/17/18 13:54: TSH 0.99 08/17/18 15:45: Total Bilirubin 1.10 H, Direct Bilirubin 0.33 H, AST 41 H, ALT 54, Alkaline Phosphatase 164 H, Total Protein 8.9 H, Albumin 3.2, Globulin 5.7 H 08/17/18 15:45: Lactic Acid 1.4 08/17/18 15:50: Urine Color Yellow, Urine Clarity Clear, Urine pH 5.0, Ur Specific [place] 1.010, Urine Protein 30 H, Urine Glucose (UA) Normal, Urine Ketones Negative, Urine Occult Blood 150 H, Urine Nitrite Negative, Urine Bilirubin Negative, Urine Urobilinogen Normal, Ur Leukocyte Esterase Negative, Urine RBC 0-5 SEEN, Urine WBC 0 SEEN, Ur Squamous Epith Cells 0-5 SEEN, Urine Bacteria 0 SEEN, Urine Mucus 0 SEEN 08/17/18 16:01: Specimen Type ART, Sample Site L Radial, pH 7.29 L, Bicarbonate Actual 29.5 H, POC Total CO2 31, Base Excess 3 H, O2 Saturation 99, O2 % 100, ABG pCO2 61.5 H, ABG pO2 179 H, Cheng Test POS, Respiration Rate 16, O2 Delivery Device Vent, Vent Mode A-C, Tidal Volume 450, POC PEEP 10, Blood Gas Notified Whom ED , Blood Gas Notified Time 0521 08/17/18 17:30: MRSA (PCR) Negative 08/17/18 20:25: Troponin I 0.220 H 08/17/18 23:31: Troponin I 0.314 H 08/17/18 23:37: POC Glucose 206 H 08/18/18 02:28: Troponin I 0.390 H 08/18/18 05:20: WBC 9.2, RBC 3.93 L, Hgb 12.8 L, Hct 38.3 L, MCV 97.5 H, MCH 32.6 H, MCHC 33.4, RDW 13.9, RDW Differential 48.0 H, Plt Count 158, MPV 12.1 H 08/18/18 05:20: Sodium 140, Potassium 6.1 H*, Chloride 105, Carbon Dioxide 26.0, Anion Gap 9, BUN 24 H, Creatinine 1.07, Estim Creat Clear Calc 95.79, Est GFR (MDRD) Af Amer 97, Est GFR (MDRD) Non-Af 80, BUN/Creatinine Ratio 22.4 H, Glucose 125 H, Calcium 7.6 L, Troponin I 0.488 H, Triglycerides 123, Cholesterol 125, LDL Cholesterol 70, VLDL Cholesterol 25, HDL Cholesterol 30 L 08/18/18 05:52: POC Glucose 132 H Current Medications Acetaminophen (Tylenol Liquid) 650 mg GT Q6H PRN PRN PRN Reason: FEVER Albuterol Sulfate (Ventolin Aerosols) 2.5 mg INHALATION Q2H PRN PRN PRN Reason: SHORTNESS OF BREATH Albuterol/Ipratropium (Duoneb) 3 ml INHALATION Q4H.RT JAZ Last Admin: 08/18/18 03:15 Dose: 3 ml Chlorhexidine Gluconate () 15 ml PO BID JAZ Last Admin: 08/17/18 21:22 Dose: 15 ml Chlorhexidine Gluconate () 1 each TOPICAL DAILY JAZ Dextrose (D50w Syringe) 0 gm IV X1 PRN; Protocol PRN Reason: Hypoglycemia Enoxaparin Sodium (Lovenox) 40 mg SC DAILY@1000 JAZ Glucagon () 1 mg IM .X1 PRN PRN Reason: Hypoglycemia Propofol (Diprivan) 1,000 mg in 100 mls @ 8.442 mls/hr CONT INF .[id number] [facility] Last Admin: 08/18/18 03:43 Dose: 8.442 mls/hr Nitroglycerin/Dextrose 25 mg/ (N/A) 250 mls @ 3 mls/hr IV .[id number] [facility] Last Admin: 08/17/18 14:50 Dose: 3 mls/hr Famotidine 20 mg/ Sodium (Chloride) 10 mls @ 300 mls/hr IV Q12 [facility] Last Admin: 08/17/18 21:21 Dose: 300 mls/hr Sodium Chloride () 250 mls @ 15 mls/hr IV .[id number] PRN PRN Reason: SALINE FLUSH Last Admin: 08/17/18 19:36 Dose: 15 mls/hr Fentanyl () 100 mls @ 5 mls/hr IV .[id number] [facility] Last Admin: 08/17/18 18:54 Dose: 5 mls/hr Azithromycin 500 mg/ Dextrose 255 mls @ 250 mls/hr IV Q24@2200 [facility] Ceftriaxone Sodium (Rocephin) 1 gm in 50 mls @ 100 mls/hr IV Q24@2200 [facility] Insulin Human Lispro (Humalog Kwikpen (Bkc)) 0 unit SQ Q6 [facility]; Protocol Last Admin: 08/18/18 06:07 Dose: Not Given Lisinopril (Zestril) 20 mg NG DAILY [facility] Magnesium Hydroxide (Milk Of Magnesia) 30 ml PO DAILY PRN PRN PRN Reason: Constipation Sodium Chloride () 5 - 15 ml IV UD PRN PRN Reason: SALINE FLUSH Last Admin: 08/17/18 23:02 Dose: 15 ml Medical Necessity - Tobacco Use Smoking Status: Former smoker Assessment/Plan All Active Problems Hypertensive emergency (Acute) Flash pulmonary edema (Acute) S/P inguinal hernia repair (Acute) Thrombocytopenia (Acute) Chest pain (Acute) Elevated CPK (Acute) 43-year-old with past medical history of morbid obesity, hypertension, hyperlipidemia, borderline diabetes who comes in with shortness of breath, managed as acute respiratory failure and emergently intubated in the ED. His blood pressure was elevated on admission more than 200 systolic, and was found to be in flash pulmonary edema. 1. Acute hypoxic respiratory failure, likely multifactorial, likely secondary to CHF/community-acquired pneumonia, remains intubated, critical care on consult, will continue to monitor 2. Community-acquired pneumonia, multifocal, likely gram-positive organism in etiology, urine streptococcal and Legionella antigen negative, Although patient was here for outpatient surgery, this does not account for HCAP, respiratory panel is pending, blood cultures are pending on IV ceftriaxone and azithromycin 3. Possible heart failure with preserved EF, admitting BNP was 38.8, received 80 mg IV Lasix x1, no signs of fluid overload, would monitor 4. Hyperkalemia likely secondary to hemolysis, repeat BMP PA 5. Hypertensive emergency, blood pressure better controlled now, on lisinopril, received nitro drip 6. Type II DM, sugars are fairly controlled, will check HbA1c, Accu-Cheks with insulin sliding scale 7. DVT prophylaxis- Lovenox and SCDs 8. Prophylaxis with famotidine Code Visit Inpatient E&M: 22975 Subs Hosp L3
[2018-08-18] MEDS: fentaNYL drip 100 ML 5 MCG IV ×2 (08:40→16:03)
[2018-08-18 09:20] LABS: Hemoglobin A1c 7.8 % (4.2-6.3)
[2018-08-18 09:22] LABS: Anion Gap 9 (5-15); BUN 20 mg/dL (7-18); Calcium,Total 5.7 mg/dL (8.5-10.1); Chloride 116 mmol/L (98-107); Creatinine, Serum 0.69 mg/dL (0.70-1.30); EST Glomerular Filtration Rate 133 mL/min (>60); Est Glom Filt Rate - Afr Amer 161 mL/min (>60); Estimated Creatinine Clearance 148.54 ml/min; Glucose 101 mg/dL (74-106); Potassium 3.6 mmol/L (3.5-5.1); Sodium Level 146 mmol/L (136-145)
[2018-08-18] MEDS: CHLORHEXIDINE GLUC 2% CLOTH 1 EACH TOWELETTE TOPICAL (10:51)
[2018-08-18] MEDS: Chlorhexidine 15 ML PO ×2 (10:52→21:38)
[2018-08-18] MEDS: Enoxaparin 40 MG/0.4 ML Syringe SC (10:57)
[2018-08-18] MEDS: Lisinopril 20 MG Tablet NG (10:58)
[2018-08-18 12:25] LABS: Bedside Glucose 125 mg/dL (70-110)
--- NOTE | 2018-08-18 12:54 | PN.CARD_ITS ---
Subjectve: The patient remains mechanically intubated and ventilated. Objective: Vital Signs Temp Pulse Resp BP Pulse Ox 99.6 F H 78 16 118/46 L 93 08/18/18 12:00 08/18/18 12:00 08/18/18 12:00 08/18/18 12:00 08/18/18 12:00 Oxygen Flow Rate (L/min) 15 Oxygen Delivery Method Mechanical Ventilator Weight: 316 lb 2.286 oz Body Mass Index (BMI) 43.4 Finger Stick Blood Glucose 174 Intake and Output for Last 24 Hours 08/16/18 08/17/18 08/18/18 23:59 23:59 23:59 Intake Total 1966 / 1966 407 / 407 Output Total 830 / 830 300 / 300 Balance 1137 / 1137 107 / 107 Lungs: Rhonchi Cardiovascular: Regular Rhythm, Normal S1, Normal S2 Extremities: Trace RLE Edema, Trace LLE Edema 08/17/18 13:54: WBC 16.8 H, RBC 4.76, Hgb 15.6, Hct 45.2, MCV 95.0 H, MCH 32.8 H , MCHC 34.5, RDW 13.3, RDW Differential 44.4 H, Plt Count 206, MPV 12.2 H, Immature Gran % (Auto) 0.300, Neut % (Auto) 93.3 H, Lymph % (Auto) 4.2 L, Levy % (Auto) 1.7, Eos % (Auto) 0.4, Baso % (Auto) 0.1, Absolute Neuts (auto) 15.6 H, Total Counted Not Reportable 08/17/18 13:54: PT 14.7, INR 1.2, APTT 28.2 08/17/18 13:54: Sodium 137, Potassium 3.9, Chloride 103, Carbon Dioxide 25.0, Anion Gap 9, BUN 15, Creatinine 0.72, Est GFR (MDRD) Af Amer 154, Est GFR (MDRD) Non-Af 127, BUN/Creatinine Ratio 20.8 H, Glucose 211 H, Calcium 8.7, Troponin I 0.019 08/17/18 13:54: B-Natriuretic Peptide 38.8 08/17/18 15:45: Total Bilirubin 1.10 H, Direct Bilirubin 0.33 H 08/17/18 15:45: Lactic Acid 1.4 08/17/18 15:50: Urine Color Yellow, Urine Clarity Clear, Urine pH 5.0, Ur Specific Wilmot 1.010, Urine Protein 30 H, Urine Glucose (UA) Normal, Urine Ketones Negative, Urine Occult Blood 150 H, Urine Nitrite Negative, Urine Bilirubin Negative, Urine Urobilinogen Normal, Ur Leukocyte Esterase Negative, Urine RBC 0-5 SEEN, Urine WBC 0 SEEN 08/17/18 16:01: pH 7.29 L, Bicarbonate Actual 29.5 H, POC Total CO2 31, Base Excess 3 H, O2 Saturation 99, ABG pCO2 61.5 H, ABG pO2 179 H, Cheng Test POS 08/17/18 20:25: Troponin I 0.220 H 08/17/18 23:31: Troponin I 0.314 H 08/18/18 02:28: Troponin I 0.390 H 08/18/18 05:20: WBC 9.2, RBC 3.93 L, Hgb 12.8 L, Hct 38.3 L, MCV 97.5 H, MCH 32.6 H, MCHC 33.4, RDW 13.9, RDW Differential 48.0 H, Plt Count 158, MPV 12.1 H 08/18/18 05:20: Sodium 140, Potassium 6.1 H*, Chloride 105, Carbon Dioxide 26.0, Anion Gap 9, BUN 24 H, Creatinine 1.07, Est GFR (MDRD) Af Amer 97, Est GFR (MDRD) Non-Af 80, BUN/Creatinine Ratio 22.4 H, Glucose 125 H, Calcium 7.6 L, Troponin I 0.488 H, Triglycerides 123, Cholesterol 125, LDL Cholesterol 70, VLDL Cholesterol 25, HDL Cholesterol 30 L 08/18/18 05:20: Hemoglobin A1c 7.8 H 08/18/18 08:22: Troponin I 0.485 H 08/18/18 08:22: Sodium 146 H, Potassium 3.6, Chloride 116 H, Carbon Dioxide 21.0, Anion Gap 9, BUN 20 H, Creatinine 0.69 L, Est GFR (MDRD) Af Amer 161, Est GFR (MDRD) Non-Af 133, BUN/Creatinine Ratio 29.0 H, Glucose 101, Calcium 5.7 L* Rhythm: Sinus rhythm EKG: Sinus rhythm; incomplete right bundle branch block pattern; no acute ECG changes Medical Necessity - Tobacco Use Smoking Status: Former smoker Assessment/Plan 1. Hypertensive emergency The patient presented with a systolic blood pressure in excess of 200 mmHg. This was associated with concerns of pulmonary edema and hypoxia. At the present time the patient is currently mechanically intubated, ventilated, and sedated. The patient will need continued ICU monitoring. His vital signs be monitored. He will need continued medical therapy as deemed appropriate to maintain adequate blood pressure control. Hopefully as his clinical status improves with respect to his blood pressure and his oxygen requirements he will be able to be weaned from the ventilator in the near future. 2. Flash pulmonary edema The patient presents with a scenario compatible with underlying flash pulmonary edema possibly secondary to his marked hypertension. At the present time his initial cardiac enzymes are negative. His initial ECG demonstrates no acute ECG changes. His chest CT scan was reported by radiology as demonstrating no definitive pulmonary embolus, however, it appears that this was a diminished quality chest CT scan. At the present time the patient is mechanically intubated, ventilated, sedated. His FiO2 requirements have decreased. During this time he will continue to be monitored. His cardiac enzymes and ECG can be followed. A formal echocardiogram will be requested for further evaluation care. Hopefully with improvement in his pulmonary disease process his echocardiographic image quality may improve as well. Same time, based on his chest CT scan, underlying separate pulmonary infiltrates cannot be excluded on his clinical scenario objective findings he can be further evaluated and treated as deemed appropriate for a possible pulmonary infection d isease issue as well. He will continue medical management as deemed appropriate. 3. Hyperlipidemia He will continue medical management as deemed appropriate. 4. Diabetes mellitus He will continue under the care of internal medicine for this. 5. Obesity The patient is unfortunately overweight/obese. This does make it challenging with respect to performing and interpreting diagnostic imaging studies, etc. Hopefully, as the patient recuperates from his event, in the future, he can bring his weight under better control. 6. Status post right inguinal hernia repair He can be further evaluated by internal medicine and/or general surgery as deemed appropriate for this. Comment: The patient's case has been discussed and reviewed with the patient, his mother, and Dr. Wang from the [facility] ICU staff. This note was generated using a voice recognition system and there may be incorrect words, spelling or punctuation that were not noted when reviewing the office note prior to saving.
[2018-08-18] MEDS: Vital AF 1.2 Cal Liquid 1,000 ML 60 ML GT (14:26)
[2018-08-18] MEDS: Aspirin 81 MG TAB.CHEW PO (16:03)
[2018-08-18 18:16] LABS: Bedside Glucose 135 mg/dL (70-110)
[2018-08-18] MEDS: 0.9% NaCl Peripheral Flush Adult/Peds IV (19:34)
[2018-08-18] MEDS: Ceftriaxone 1 GM/50 ML BAG IV (21:29)
[2018-08-18] MEDS: Insulin Lispro 100 UNIT/ML INSULN.PEN SQ (23:49)
[2018-08-19] VITALS (35 sets, daily range): BP systolic 111–176; BP diastolic 47–106; PULSE 77–114; RESP 13–32; TEMP 35.8–38.1; O2SAT 90–96
[2018-08-19 00:11] LABS: Bedside Glucose 162 mg/dL (70-110)
[2018-08-19] MEDS: Acetaminophen 650 MG/20 ML UDC GT (00:57)
[2018-08-19] MEDS: CHLORHEXIDINE GLUC 2% CLOTH 1 EACH TOWELETTE TOPICAL (01:18)
[2018-08-19] MEDS: Ipratropium/Albuterol Sulfate 3 ML AMPUL.NEB INHALATION ×2 (03:50→06:50)
[2018-08-19] MEDS: Insulin Lispro 100 UNIT/ML INSULN.PEN SQ (05:53)
--- NOTE | 2018-08-19 05:55 | EKG12_ITS ---
Test Reason : MELA EKG Blood Pressure : / mmHG Vent. Rate : 101 BPM Atrial Rate : 101 BPM P-R Int : 134 ms QRS Dur : 116 ms QT Int : 386 ms P-R-T Axes : 033 063 051 degrees QTc Int : 500 ms Sinus tachycardia Incomplete right bundle branch block Confirmed by ERIN HARMON, MILI ([id number]), editor at large JENNIFER MART ([id number] on 08/22/2018 2:53:04 PM Referred By: TODD Confirmed By:MILI KHAN MD
[2018-08-19 06:06] LABS: Bedside Glucose 169 mg/dL (70-110)
--- NOTE | 2018-08-19 06:40 | NURSING ---
Extubated at 0640 by respiratory. 4L NC applied. Present gag reflex, able to speak. Tolerated well.
--- NOTE | 2018-08-19 06:54 | PCM.PN.INT ---
Subjective: The patient was seen and examined at the bedside this morning. Events from the last 24 hours have been reviewed. The patient was noted to be febrile overnight with a T-max of 38.1 ?C. Some secretions were noted by overnight nursing staff and respiratory therapy. However, the patient is doing well this morning on his spontaneous breathing trial. He is alert, cooperative and following commands appropriately. Objective: The patient's most recent lab work, culture data and imaging studies have all been personally reviewed. Respiratory viral panel was positive for rhinovirus. Sputum Gram stain revealed 2+ white blood cells without organisms seen. Strep and urine Legionella antigens were both negative. Blood and urine cultures are pending. A CTA chest was obtained which revealed limited enhancement of the bilateral peripheral pulmonary arteries. Bilateral groundglass opacities were noted, along with incidental finding of splenomegaly, splenic varices and paraesophageal varices. General: Alert, Cooperative, - - The patient remains intubated and mechanically ventilated. He is currently tolerating CPAP mode of mechanical ventilation without issue. HEENT: Atraumatic, PERRLA, Normocephalic Oral: No Gingival or Mucosal Lesions/ Ulcerations, - - Endotracheal and OG tubes remain in place. Neck: Supple, No Nodes, Trachea Midline Lungs: No rhonchi, No wheeze, No rales, Diminished Cardiovascular: Regular rate, Regular Rhythm, Normal S1, Normal S2, No murmurs Abdomen: Bowel Sounds Present, Soft, Non Tender, Obese Extremities: No clubbing, No cyanosis, No edema Skin: - - No significant change from previous. Musculoskeletal: No Tenderness to Palpation of Joints or Extremities, No Muscle Wasting Lymphatic: No Cervical, Supraclavicular, or Inguinal Adenopathy Neurological: Cranial nerves II-XII grossly intact, Neuro grossly intact Psych/Mental Status: Normal Affect Vital Signs Temp Pulse Resp BP Pulse Ox 37.6 C H 114 H 23 H 164/78 H 94 08/19/18 06:00 08/19/18 06:00 08/19/18 06:00 08/19/18 06:00 08/19/18 06:00 Oxygen Flow Rate (L/min) 15 Oxygen Delivery Method Mechanical Ventilator Weight: 312 lb 9.848 oz Body Mass Index (BMI) 43.4 Finger Stick Blood Glucose 174 Intake and Output for Last 24 Hours 08/17/18 08/18/18 08/19/18 23:59 23:59 23:59 Intake Total 1966 / 1966 1209 / 1209 682 / 682 Output Total 830 / 830 1300 / 1300 1050 / 1050 Balance 1137 / 1137 -91 / -91 -368 / -368 Labs (Last 48 Hours) 08/17/18 08/17/18 08/17/18 13:54 13:54 13:54 WBC 16.8 H RBC 4.76 Hgb 15.6 Hct 45.2 MCV 95.0 H MCH 32.8 H MCHC 34.5 RDW 13.3 RDW Differential 44.4 H Plt Count 206 MPV 12.2 H Immature Gran % (Auto) 0.300 Neut % (Auto) 93.3 H Lymph % (Auto) 4.2 L [place] % (Auto) 1.7 Eos % (Auto) 0.4 Baso % (Auto) 0.1 Absolute Neuts (auto) 15.6 H Absolute Lymphs (auto) 0.70 L Total Counted Not Reportable PT 14.7 INR 1.2 APTT 28.2 Specimen Type Sample Site pH Bicarbonate Actual POC Total CO2 Base Excess O2 Saturation O2 % ABG pCO2 ABG pO2 Cheng Test Respiration Rate O2 Delivery Device Vent Mode Tidal Volume POC PEEP Blood Gas Notified Whom Blood Gas Notified Time Sodium 137 Potassium 3.9 Chloride 103 Carbon Dioxide 25.0 Anion Gap 9 BUN 15 Creatinine 0.72 Estim Creat Clear Calc 142.35 Est GFR (MDRD) Af Amer 154 Est GFR (MDRD) Non-Af 127 BUN/Creatinine Ratio 20.8 H Glucose 211 H Hemoglobin A1c Lactic Acid Calcium 8.7 Total Bilirubin Direct Bilirubin AST ALT Alkaline Phosphatase Troponin I 0.019 B-Natriuretic Peptide Total Protein Albumin Globulin Triglycerides Cholesterol LDL Cholesterol VLDL Cholesterol HDL Cholesterol TSH Urine Color Urine Clarity Urine pH Ur Specific [place] Urine Protein Urine Glucose (UA) Urine Ketones Urine Occult Blood Urine Nitrite Urine Bilirubin Urine Urobilinogen Ur Leukocyte Esterase Urine RBC Urine WBC Ur Squamous Epith Cells Urine Bacteria Urine Mucus MRSA (PCR) POC Glucose 08/17/18 08/17/18 08/17/18 13:54 13:54 15:45 WBC RBC Hgb Hct MCV MCH MCHC RDW RDW Differential Plt Count MPV Immature Gran % (Auto) Neut % (Auto) Lymph % (Auto) [place] % (Auto) Eos % (Auto) Baso % (Auto) Absolute Neuts (auto) Absolute Lymphs (auto) Total Counted PT INR APTT Specimen Type Sample Site pH Bicarbonate Actual POC Total CO2 Base Excess O2 Saturation O2 % ABG pCO2 ABG pO2 Cheng Test Respiration Rate O2 Delivery Device Vent Mode Tidal Volume POC PEEP Blood Gas Notified Whom Blood Gas Notified Time Sodium Potassium Chloride Carbon Dioxide Anion Gap BUN Creatinine Estim Creat Clear Calc Est GFR (MDRD) Af Amer Est GFR (MDRD) Non-Af BUN/Creatinine Ratio Glucose Hemoglobin A1c Lactic Acid Calcium Total Bilirubin 1.10 H Direct Bilirubin 0.33 H AST 41 H ALT 54 Alkaline Phosphatase 164 H Troponin I B-Natriuretic Peptide 38.8 Total Protein 8.9 H Albumin 3.2 Globulin 5.7 H Triglycerides Cholesterol LDL Cholesterol VLDL Cholesterol HDL Cholesterol TSH 0.99 Urine Color Urine Clarity Urine pH Ur Specific [place] Urine Protein Urine Glucose (UA) Urine Ketones Urine Occult Blood Urine Nitrite Urine Bilirubin Urine Urobilinogen Ur Leukocyte Esterase Urine RBC Urine WBC Ur Squamous Epith Cells Urine Bacteria Urine Mucus MRSA (PCR) POC Glucose 08/17/18 08/17/18 08/17/18 15:45 15:50 16:01 WBC RBC Hgb Hct MCV MCH MCHC RDW RDW Differential Plt Count MPV Immature Gran % (Auto) Neut % (Auto) Lymph % (Auto) [place] % (Auto) Eos % (Auto) Baso % (Auto) Absolute Neuts (auto) Absolute Lymphs (auto) Total Counted PT INR APTT Specimen Type ART Sample Site L Radial pH 7.29 L Bicarbonate Actual 29.5 H POC Total CO2 31 Base Excess 3 H O2 Saturation 99 O2 % 100 ABG pCO2 61.5 H ABG pO2 179 H Cheng Test POS Respiration Rate 16 O2 Delivery Device Vent Vent Mode A-C Tidal Volume 450 POC PEEP 10 Blood Gas Notified Whom ED Blood Gas Notified Time 1558 Sodium Potassium Chloride Carbon Dioxide Anion Gap BUN Creatinine Estim Creat Clear Calc Est GFR (MDRD) Af Amer Est GFR (MDRD) Non-Af BUN/Creatinine Ratio Glucose Hemoglobin A1c Lactic Acid 1.4 Calcium Total Bilirubin Direct Bilirubin AST ALT Alkaline Phosphatase Troponin I B-Natriuretic Peptide Total Protein Albumin Globulin Triglycerides Cholesterol LDL Cholesterol VLDL Cholesterol HDL Cholesterol TSH Urine Color Yellow Urine Clarity Clear Urine pH 5.0 Ur Specific [place] 1.010 Urine Protein 30 H Urine Glucose (UA) Normal Urine Ketones Negative Urine Occult Blood 150 H Urine Nitrite Negative Urine Bilirubin Negative Urine Urobilinogen Normal Ur Leukocyte Esterase Negative Urine RBC 0-5 SEEN Urine WBC 0 SEEN Ur Squamous Epith Cells 0-5 SEEN Urine Bacteria 0 SEEN Urine Mucus 0 SEEN MRSA (PCR) POC Glucose 08/17/18 08/17/18 08/17/18 17:30 20:25 23:31 WBC RBC Hgb Hct MCV MCH MCHC RDW RDW Differential Plt Count MPV Immature Gran % (Auto) Neut % (Auto) Lymph % (Auto) [place] % (Auto) Eos % (Auto) Baso % (Auto) Absolute Neuts (auto) Absolute Lymphs (auto) Total Counted PT INR APTT Specimen Type Sample Site pH Bicarbonate Actual POC Total CO2 Base Excess O2 Saturation O2 % ABG pCO2 ABG pO2 Cheng Test Respiration Rate O2 Delivery Device Vent Mode Tidal Volume POC PEEP Blood Gas Notified Whom Blood Gas Notified Time Sodium Potassium Chloride Carbon Dioxide Anion Gap BUN Creatinine Estim Creat Clear Calc Est GFR (MDRD) Af Amer Est GFR (MDRD) Non-Af BUN/Creatinine Ratio Glucose Hemoglobin A1c Lactic Acid Calcium Total Bilirubin Direct Bilirubin AST ALT Alkaline Phosphatase Troponin I 0.220 H 0.314 H B-Natriuretic Peptide Total Protein Albumin Globulin Triglycerides Cholesterol LDL Cholesterol VLDL Cholesterol HDL Cholesterol TSH Urine Color Urine Clarity Urine pH Ur Specific [place] Urine Protein Urine Glucose (UA) Urine Ketones Urine Occult Blood Urine Nitrite Urine Bilirubin Urine Urobilinogen Ur Leukocyte Esterase Urine RBC Urine WBC Ur Squamous Epith Cells Urine Bacteria Urine Mucus MRSA (PCR) Negative POC Glucose 08/17/18 08/18/18 08/18/18 23:37 02:28 05:20 WBC 9.2 RBC 3.93 L Hgb 12.8 L Hct 38.3 L MCV 97.5 H MCH 32.6 H MCHC 33.4 RDW 13.9 RDW Differential 48.0 H Plt Count 158 MPV 12.1 H Immature Gran % (Auto) Neut % (Auto) Lymph % (Auto) [place] % (Auto) Eos % (Auto) Baso % (Auto) Absolute Neuts (auto) Absolute Lymphs (auto) Total Counted PT INR APTT Specimen Type Sample Site pH Bicarbonate Actual POC Total CO2 Base Excess O2 Saturation O2 % ABG pCO2 ABG pO2 Cheng Test Respiration Rate O2 Delivery Device Vent Mode Tidal Volume POC PEEP Blood Gas Notified Whom Blood Gas Notified Time Sodium Potassium Chloride Carbon Dioxide Anion Gap BUN Creatinine Estim Creat Clear Calc Est GFR (MDRD) Af Amer Est GFR (MDRD) Non-Af BUN/Creatinine Ratio Glucose Hemoglobin A1c Lactic Acid Calcium Total Bilirubin Direct Bilirubin AST ALT Alkaline Phosphatase Troponin I 0.390 H B-Natriuretic Peptide Total Protein Albumin Globulin Triglycerides Cholesterol LDL Cholesterol VLDL Cholesterol HDL Cholesterol TSH Urine Color Urine Clarity Urine pH Ur Specific [place] Urine Protein Urine Glucose (UA) Urine Ketones Urine Occult Blood Urine Nitrite Urine Bilirubin Urine Urobilinogen Ur Leukocyte Esterase Urine RBC Urine WBC Ur Squamous Epith Cells Urine Bacteria Urine Mucus MRSA (PCR) POC Glucose 206 H 08/18/18 08/18/18 08/18/18 05:20 05:20 05:52 WBC RBC Hgb Hct MCV MCH MCHC RDW RDW Differential Plt Count MPV Immature Gran % (Auto) Neut % (Auto) Lymph % (Auto) [place] % (Auto) Eos % (Auto) Baso % (Auto) Absolute Neuts (auto) Absolute Lymphs (auto) Total Counted PT INR APTT Specimen Type Sample Site pH Bicarbonate Actual POC Total CO2 Base Excess O2 Saturation O2 % ABG pCO2 ABG pO2 Cheng Test Respiration Rate O2 Delivery Device Vent Mode Tidal Volume POC PEEP Blood Gas Notified Whom Blood Gas Notified Time Sodium 140 Potassium 6.1 H* Chloride 105 Carbon Dioxide 26.0 Anion Gap 9 BUN 24 H Creatinine 1.07 Estim Creat Clear Calc 95.79 Est GFR (MDRD) Af Amer 97 Est GFR (MDRD) Non-Af 80 BUN/Creatinine Ratio 22.4 H Glucose 125 H Hemoglobin A1c 7.8 H Lactic Acid Calcium 7.6 L Total Bilirubin Direct Bilirubin AST ALT Alkaline Phosphatase Troponin I 0.488 H B-Natriuretic Peptide Total Protein Albumin Globulin Triglycerides 123 Cholesterol 125 LDL Cholesterol 70 VLDL Cholesterol 25 HDL Cholesterol 30 L TSH Urine Color Urine Clarity Urine pH Ur Specific [place] Urine Protein Urine Glucose (UA) Urine Ketones Urine Occult Blood Urine Nitrite Urine Bilirubin Urine Urobilinogen Ur Leukocyte Esterase Urine RBC Urine WBC Ur Squamous Epith Cells Urine Bacteria Urine Mucus MRSA (PCR) POC Glucose 132 H 08/18/18 08/18/18 08/18/18 08:22 08:22 12:23 WBC RBC Hgb Hct MCV MCH MCHC RDW RDW Differential Plt Count MPV Immature Gran % (Auto) Neut % (Auto) Lymph % (Auto) [place] % (Auto) Eos % (Auto) Baso % (Auto) Absolute Neuts (auto) Absolute Lymphs (auto) Total Counted PT INR APTT Specimen Type Sample Site pH Bicarbonate Actual POC Total CO2 Base Excess O2 Saturation O2 % ABG pCO2 ABG pO2 Cheng Test Respiration Rate O2 Delivery Device Vent Mode Tidal Volume POC PEEP Blood Gas Notified Whom Blood Gas Notified Time Sodium 146 H Potassium 3.6 Chloride 116 H Carbon Dioxide 21.0 Anion Gap 9 BUN 20 H Creatinine 0.69 L Estim Creat Clear Calc 148.54 Est GFR (MDRD) Af Amer 161 Est GFR (MDRD) Non-Af 133 BUN/Creatinine Ratio 29.0 H Glucose 101 Hemoglobin A1c Lactic Acid Calcium 5.7 L* Total Bilirubin Direct Bilirubin AST ALT Alkaline Phosphatase Troponin I 0.485 H B-Natriuretic Peptide Total Protein Albumin Globulin Triglycerides Cholesterol LDL Cholesterol VLDL Cholesterol HDL Cholesterol TSH Urine Color Urine Clarity Urine pH Ur Specific [place] Urine Protein Urine Glucose (UA) Urine Ketones Urine Occult Blood Urine Nitrite Urine Bilirubin Urine Urobilinogen Ur Leukocyte Esterase Urine RBC Urine WBC Ur Squamous Epith Cells Urine Bacteria Urine Mucus MRSA (PCR) POC Glucose 125 H 08/18/18 08/18/18 08/18/18 12:50 18:09 23:48 WBC RBC Hgb Hct MCV MCH MCHC RDW RDW Differential Plt Count MPV Immature Gran % (Auto) Neut % (Auto) Lymph % (Auto) [place] % (Auto) Eos % (Auto) Baso % (Auto) Absolute Neuts (auto) Absolute Lymphs (auto) Total Counted PT INR APTT Specimen Type Sample Site pH Bicarbonate Actual POC Total CO2 Base Excess O2 Saturation O2 % ABG pCO2 ABG pO2 Cheng Test Respiration Rate O2 Delivery Device Vent Mode Tidal Volume POC PEEP Blood Gas Notified Whom Blood Gas Notified Time Sodium Potassium Chloride Carbon Dioxide Anion Gap BUN Creatinine Estim Creat Clear Calc Est GFR (MDRD) Af Amer Est GFR (MDRD) Non-Af BUN/Creatinine Ratio Glucose Hemoglobin A1c Lactic Acid Calcium Total Bilirubin Direct Bilirubin AST ALT Alkaline Phosphatase Troponin I 0.506 H B-Natriuretic Peptide Total Protein Albumin Globulin Triglycerides Cholesterol LDL Cholesterol VLDL Cholesterol HDL Cholesterol TSH Urine Color Urine Clarity Urine pH Ur Specific [place] Urine Protein Urine Glucose (UA) Urine Ketones Urine Occult Blood Urine Nitrite Urine Bilirubin Urine Urobilinogen Ur Leukocyte Esterase Urine RBC Urine WBC Ur Squamous Epith Cells Urine Bacteria Urine Mucus MRSA (PCR) POC Glucose 135 H 162 H 08/19/18 08/19/18 05:10 05:51 WBC RBC Hgb Hct MCV MCH MCHC RDW RDW Differential Plt Count MPV Immature Gran % (Auto) Neut % (Auto) Lymph % (Auto) [place] % (Auto) Eos % (Auto) Baso % (Auto) Absolute Neuts (auto) Absolute Lymphs (auto) Total Counted PT INR APTT Specimen Type Sample Site pH Bicarbonate Actual POC Total CO2 Base Excess O2 Saturation O2 % ABG pCO2 ABG pO2 Cheng Test Respiration Rate O2 Delivery Device Vent Mode Tidal Volume POC PEEP Blood Gas Notified Whom Blood Gas Notified Time Sodium Potassium Chloride Carbon Dioxide Anion Gap BUN Creatinine Estim Creat Clear Calc Est GFR (MDRD) Af Amer Est GFR (MDRD) Non-Af BUN/Creatinine Ratio Glucose Hemoglobin A1c Lactic Acid Calcium Total Bilirubin Direct Bilirubin AST ALT Alkaline Phosphatase Troponin I 0.229 H B-Natriuretic Peptide Total Protein Albumin Globulin Triglycerides Cholesterol LDL Cholesterol VLDL Cholesterol HDL Cholesterol TSH Urine Color Urine Clarity Urine pH Ur Specific [place] Urine Protein Urine Glucose (UA) Urine Ketones Urine Occult Blood Urine Nitrite Urine Bilirubin Urine Urobilinogen Ur Leukocyte Esterase Urine RBC Urine WBC Ur Squamous Epith Cells Urine Bacteria Urine Mucus MRSA (PCR) POC Glucose 169 H Microbiology 08/17/18 23:10 Sputum, Induced/[place] Gram Stain - Final 08/18/18 07:35 Mucosa - Nasopharyngeal Respiratory Panel (PCR) - Final 08/17/18 17:30 Urine Catheter - Catheter Legionella Antigen - Final 08/17/18 17:30 Urine Catheter - Catheter Streptococcus pneumoniae Antigen (M - Final Clinical Impression(s) from Imaging Studies Chest X-Ray 08/17/18 13:58 IMPRESSION: Low lung volumes. Grossly clear lungs. Electronically Signed: Patrice Roth at 14:26 EST Tel , Service support , Chest CTA 08/17/18 14:07 IMPRESSION: No large central pulmonary embolism. Extensive multi focal lung disease. Leading differential considerations are infectious disease and pulmonary edema. N.B. : The above information has been verbally conveyed by Pillo Streteer MD to MORENA Wheeler, on 08/17/2018 15:49:36 (ET). Electronically Signed: Pillo Streeter MD at 14:54 EST Tel , Service support , ADDENDUM: 08/17/18 1607 Chest X-Ray 08/17/18 14:55 IMPRESSION: The endotracheal tube is high and should be advanced at least 6 cm. The tube is now nearly 11 cm above the sameera and above the clavicles. Consider edema and/or diffuse atypical infiltrates. N.B. : The above information has been verbally conveyed by Indiana Flores MD to DR ANA MATOS MD, on 08/17/2018 15:54:30 (ET). Electronically Signed: Indiana Flores MD at 15:43 EST Tel , Service support , KUB X-Ray 08/17/18 17:24 IMPRESSION: Tip of orogastric tube projected over the duodenal bulb. Electronically Signed: Bart Cervantes MD at 20:14 EST , Service support , Medical Necessity - Tobacco Use Smoking Status: Former smoker Assessment/Plan All Active Problems Hypertensive emergency (Acute) Flash pulmonary edema (Acute) S/P inguinal hernia repair (Acute) Thrombocytopenia (Acute) Chest pain (Acute) Elevated CPK (Acute) RECOMMENDATIONS: 1. Proceed with a trial of extubation this morning. 2. Once extubated, wean supplemental oxygen to maintain saturations at or above 90%. 3. Perform bedside swallow evaluation and advance diet accordingly. 4. Continue empiric antibiotics, pending finalized infectious workup. 5. Blood pressure control per cardiology recommendations. 6. Await echocardiogram. The patient may require further diuresis. 7. Encourage aggressive incentive spirometer use/PEP therapy and mobilize patient as tolerated. IMPRESSIONS: 1. Acute hypoxemic respiratory failure with concern for flash pulmonary edema The patient initially presented to the hospital with hypertensive emergency and what appeared to be flash pulmonary edema, necessitating emergent intubation. His hemodynamics have improved and his ventilator requirements are minimal. The patient does appear to have a rhinovirus upper respiratory infection. Nevertheless, the patient's antibiotics will be continued, pending finalized bacterial infectious workup. The patient did well this morning on his spontaneous breathing trial and is currently a candidate for a trial of extubation. Once extubated, his supplemental oxygen will be weaned accordingly. Would plan to perform a bedside swallow evaluation and advance diet accordingly. A surface echocardiogram is currently pending. The patient may require additional diuresis. Recommend continuing aggressive incentive spirometry/PEP therapy. Mobilize patient as tolerated. 2. Hypertensive emergency The patient's hemodynamics have stabilized since his initial admission. He is no longer requiring a nitro infusion. Continue antihypertensive regimen per cardiology recommendations. 3. Troponin elevation Likely secondary to demand ischemia in the setting of the above. However, cardiology is following so will defer management to them accordingly. Surface echocardiogram is currently pending. 4. Morbid obesity/hypertension/hyperlipidemia/diabetes Complicates care, management, recovery and prognosis. Hold metformin and continue Accu-Cheks and sliding scale insulin coverage. TIME: 35 minutes of critical care time, independent of procedures, was spent addressing the patient's acute hypoxemic respiratory failure, hypertensive emergency, troponin elevation, review of all data and collaboration with the care team. ([id number]) Code Visit [id number]: [id number] Critical care first hour
--- NOTE | 2018-08-19 06:57 | PN_ITS ---
Subjective: The patient was seen and examined at the bedside this morning. Events from the last 24 hours have been reviewed. The patient was noted to be febrile overnight with a T-max of 38.1 ?C. Some secretions were noted by overnight nursing staff and respiratory therapy. However, the patient is doing well this morning on his spontaneous breathing trial. He is alert, cooperative and following commands appropriately. Objective: The patient's most recent lab work, culture data and imaging studies have all been personally reviewed. Respiratory viral panel was positive for rhinovirus. Sputum Gram stain revealed 2+ white blood cells without organisms seen. Strep and urine Legionella antigens were both negative. Blood and urine cultures are pending. A CTA chest was obtained which revealed limited enhancement of the bilateral peripheral pulmonary arteries. Bilateral groundglass opacities were noted, along with incidental finding of splenomegaly, splenic varices and paraesophageal varices. General: Alert, Cooperative, - - The patient remains intubated and mechanically ventilated. He is currently tolerating CPAP mode of mechanical ventilation without issue. HEENT: Atraumatic, PERRLA, Normocephalic Oral: No Gingival or Mucosal Lesions/ Ulcerations, - - Endotracheal and OG tubes remain in place. Neck: Supple, No Nodes, Trachea Midline Lungs: No rhonchi, No wheeze, No rales, Diminished Cardiovascular: Regular rate, Regular Rhythm, Normal S1, Normal S2, No murmurs Abdomen: Bowel Sounds Present, Soft, Non Tender, Obese Extremities: No clubbing, No cyanosis, No edema Skin: - - No significant change from previous. Musculoskeletal: No Tenderness to Palpation of Joints or Extremities, No Muscle Wasting Lymphatic: No Cervical, Supraclavicular, or Inguinal Adenopathy Neurological: Cranial nerves II-XII grossly intact, Neuro grossly intact Psych/Mental Status: Normal Affect Vital Signs Temp Pulse Resp BP Pulse Ox 37.6 C H 114 H 23 H 164/78 H 94 08/19/18 06:00 08/19/18 06:00 08/19/18 06:00 08/19/18 06:00 08/19/18 06:00 Oxygen Flow Rate (L/min) 15 Oxygen Delivery Method Mechanical Ventilator Weight: 312 lb 9.848 oz Body Mass Index (BMI) 43.4 Finger Stick Blood Glucose 174 Intake and Output for Last 24 Hours 08/17/18 08/18/18 08/19/18 23:59 23:59 23:59 Intake Total 1966 / 1966 1209 / 1209 682 / 682 Output Total 830 / 830 1300 / 1300 1050 / 1050 Balance 1137 / 1137 -91 / -91 -368 / -368 Labs (Last 48 Hours) 08/17/18 08/17/18 08/17/18 13:54 13:54 13:54 WBC 16.8 H RBC 4.76 Hgb 15.6 Hct 45.2 MCV 95.0 H MCH 32.8 H MCHC 34.5 RDW 13.3 RDW Differential 44.4 H Plt Count 206 MPV 12.2 H Immature Gran % (Auto) 0.300 Neut % (Auto) 93.3 H Lymph % (Auto) 4.2 L Lassen % (Auto) 1.7 Eos % (Auto) 0.4 Baso % (Auto) 0.1 Absolute Neuts (auto) 15.6 H Absolute Lymphs (auto) 0.70 L Total Counted Not Reportable PT 14.7 INR 1.2 APTT 28.2 Specimen Type Sample Site pH Bicarbonate Actual POC Total CO2 Base Excess O2 Saturation O2 % ABG pCO2 ABG pO2 Cheng Test Respiration Rate O2 Delivery Device Vent Mode Tidal Volume POC PEEP Blood Gas Notified Whom Blood Gas Notified Time Sodium 137 Potassium 3.9 Chloride 103 Carbon Dioxide 25.0 Anion Gap 9 BUN 15 Creatinine 0.72 Estim Creat Clear Calc 142.35 Est GFR (MDRD) Af Amer 154 Est GFR (MDRD) Non-Af 127 BUN/Creatinine Ratio 20.8 H Glucose 211 H Hemoglobin A1c Lactic Acid Calcium 8.7 Total Bilirubin Direct Bilirubin AST ALT Alkaline Phosphatase Troponin I 0.019 B-Natriuretic Peptide Total Protein Albumin Globulin Triglycerides Cholesterol LDL Cholesterol VLDL Cholesterol HDL Cholesterol TSH Urine Color Urine Clarity Urine pH Ur Specific [place] Urine Protein Urine Glucose (UA) Urine Ketones Urine Occult Blood Urine Nitrite Urine Bilirubin Urine Urobilinogen Ur Leukocyte Esterase Urine RBC Urine WBC Ur Squamous Epith Cells Urine Bacteria Urine Mucus MRSA (PCR) POC Glucose 08/17/18 08/17/18 08/17/18 13:54 13:54 15:45 WBC RBC Hgb Hct MCV MCH MCHC RDW RDW Differential Plt Count MPV Immature Gran % (Auto) Neut % (Auto) Lymph % (Auto) Lassen % (Auto) Eos % (Auto) Baso % (Auto) Absolute Neuts (auto) Absolute Lymphs (auto) Total Counted PT INR APTT Specimen Type Sample Site pH Bicarbonate Actual POC Total CO2 Base Excess O2 Saturation O2 % ABG pCO2 ABG pO2 Cheng Test Respiration Rate O2 Delivery Device Vent Mode Tidal Volume POC PEEP Blood Gas Notified Whom Blood Gas Notified Time Sodium Potassium Chloride Carbon Dioxide Anion Gap BUN Creatinine Estim Creat Clear Calc Est GFR (MDRD) Af Amer Est GFR (MDRD) Non-Af BUN/Creatinine Ratio Glucose Hemoglobin A1c Lactic Acid Calcium Total Bilirubin 1.10 H Direct Bilirubin 0.33 H AST 41 H ALT 54 Alkaline Phosphatase 164 H Troponin I B-Natriuretic Peptide 38.8 Total Protein 8.9 H Albumin 3.2 Globulin 5.7 H Triglycerides Cholesterol LDL Cholesterol VLDL Cholesterol HDL Cholesterol TSH 0.99 Urine Color Urine Clarity Urine pH Ur Specific [place] Urine Protein Urine Glucose (UA) Urine Ketones Urine Occult Blood Urine Nitrite Urine Bilirubin Urine Urobilinogen Ur Leukocyte Esterase Urine RBC Urine WBC Ur Squamous Epith Cells Urine Bacteria Urine Mucus MRSA (PCR) POC Glucose 08/17/18 08/17/18 08/17/18 15:45 15:50 16:01 WBC RBC Hgb Hct MCV MCH MCHC RDW RDW Differential Plt Count MPV Immature Gran % (Auto) Neut % (Auto) Lymph % (Auto) Lassen % (Auto) Eos % (Auto) Baso % (Auto) Absolute Neuts (auto) Absolute Lymphs (auto) Total Counted PT INR APTT Specimen Type ART Sample Site L Radial pH 7.29 L Bicarbonate Actual 29.5 H POC Total CO2 31 Base Excess 3 H O2 Saturation 99 O2 % 100 ABG pCO2 61.5 H ABG pO2 179 H Cheng Test POS Respiration Rate 16 O2 Delivery Device Vent Vent Mode A-C Tidal Volume 450 POC PEEP 10 Blood Gas Notified Whom ED Blood Gas Notified Time 1558 Sodium Potassium Chloride Carbon Dioxide Anion Gap BUN Creatinine Estim Creat Clear Calc Est GFR (MDRD) Af Amer Est GFR (MDRD) Non-Af BUN/Creatinine Ratio Glucose Hemoglobin A1c Lactic Acid 1.4 Calcium Total Bilirubin Direct Bilirubin AST ALT Alkaline Phosphatase Troponin I B-Natriuretic Peptide Total Protein Albumin Globulin Triglycerides Cholesterol LDL Cholesterol VLDL Cholesterol HDL Cholesterol TSH Urine Color Yellow Urine Clarity Clear Urine pH 5.0 Ur Specific [place] 1.010 Urine Protein 30 H Urine Glucose (UA) Normal Urine Ketones Negative Urine Occult Blood 150 H Urine Nitrite Negative Urine Bilirubin Negative Urine Urobilinogen Normal Ur Leukocyte Esterase Negative Urine RBC 0-5 SEEN Urine WBC 0 SEEN Ur Squamous Epith Cells 0-5 SEEN Urine Bacteria 0 SEEN Urine Mucus 0 SEEN MRSA (PCR) POC Glucose 08/17/18 08/17/18 08/17/18 17:30 20:25 23:31 WBC RBC Hgb Hct MCV MCH MCHC RDW RDW Differential Plt Count MPV Immature Gran % (Auto) Neut % (Auto) Lymph % (Auto) Lassen % (Auto) Eos % (Auto) Baso % (Auto) Absolute Neuts (auto) Absolute Lymphs (auto) Total Counted PT INR APTT Specimen Type Sample Site pH Bicarbonate Actual POC Total CO2 Base Excess O2 Saturation O2 % ABG pCO2 ABG pO2 Cheng Test Respiration Rate O2 Delivery Device Vent Mode Tidal Volume POC PEEP Blood Gas Notified Whom Blood Gas Notified Time Sodium Potassium Chloride Carbon Dioxide Anion Gap BUN Creatinine Estim Creat Clear Calc Est GFR (MDRD) Af Amer Est GFR (MDRD) Non-Af BUN/Creatinine Ratio Glucose Hemoglobin A1c Lactic Acid Calcium Total Bilirubin Direct Bilirubin AST ALT Alkaline Phosphatase Troponin I 0.220 H 0.314 H B-Natriuretic Peptide Total Protein Albumin Globulin Triglycerides Cholesterol LDL Cholesterol VLDL Cholesterol HDL Cholesterol TSH Urine Color Urine Clarity Urine pH Ur Specific [place] Urine Protein Urine Glucose (UA) Urine Ketones Urine Occult Blood Urine Nitrite Urine Bilirubin Urine Urobilinogen Ur Leukocyte Esterase Urine RBC Urine WBC Ur Squamous Epith Cells Urine Bacteria Urine Mucus MRSA (PCR) Negative POC Glucose 08/17/18 08/18/18 08/18/18 23:37 02:28 05:20 WBC 9.2 RBC 3.93 L Hgb 12.8 L Hct 38.3 L MCV 97.5 H MCH 32.6 H MCHC 33.4 RDW 13.9 RDW Differential 48.0 H Plt Count 158 MPV 12.1 H Immature Gran % (Auto) Neut % (Auto) Lymph % (Auto) Lassen % (Auto) Eos % (Auto) Baso % (Auto) Absolute Neuts (auto) Absolute Lymphs (auto) Total Counted PT INR APTT Specimen Type Sample Site pH Bicarbonate Actual POC Total CO2 Base Excess O2 Saturation O2 % ABG pCO2 ABG pO2 Cheng Test Respiration Rate O2 Delivery Device Vent Mode Tidal Volume POC PEEP Blood Gas Notified Whom Blood Gas Notified Time Sodium Potassium Chloride Carbon Dioxide Anion Gap BUN Creatinine Estim Creat Clear Calc Est GFR (MDRD) Af Amer Est GFR (MDRD) Non-Af BUN/Creatinine Ratio Glucose Hemoglobin A1c Lactic Acid Calcium Total Bilirubin Direct Bilirubin AST ALT Alkaline Phosphatase Troponin I 0.390 H B-Natriuretic Peptide Total Protein Albumin Globulin Triglycerides Cholesterol LDL Cholesterol VLDL Cholesterol HDL Cholesterol TSH Urine Color Urine Clarity Urine pH Ur Specific [place] Urine Protein Urine Glucose (UA) Urine Ketones Urine Occult Blood Urine Nitrite Urine Bilirubin Urine Urobilinogen Ur Leukocyte Esterase Urine RBC Urine WBC Ur Squamous Epith Cells Urine Bacteria Urine Mucus MRSA (PCR) POC Glucose 206 H 08/18/18 08/18/18 08/18/18 05:20 05:20 05:52 WBC RBC Hgb Hct MCV MCH MCHC RDW RDW Differential Plt Count MPV Immature Gran % (Auto) Neut % (Auto) Lymph % (Auto) Lassen % (Auto) Eos % (Auto) Baso % (Auto) Absolute Neuts (auto) Absolute Lymphs (auto) Total Counted PT INR APTT Specimen Type Sample Site pH Bicarbonate Actual POC Total CO2 Base Excess O2 Saturation O2 % ABG pCO2 ABG pO2 Cheng Test Respiration Rate O2 Delivery Device Vent Mode Tidal Volume POC PEEP Blood Gas Notified Whom Blood Gas Notified Time Sodium 140 Potassium 6.1 H* Chloride 105 Carbon Dioxide 26.0 Anion Gap 9 BUN 24 H Creatinine 1.07 Estim Creat Clear Calc 95.79 Est GFR (MDRD) Af Amer 97 Est GFR (MDRD) Non-Af 80 BUN/Creatinine Ratio 22.4 H Glucose 125 H Hemoglobin A1c 7.8 H Lactic Acid Calcium 7.6 L Total Bilirubin Direct Bilirubin AST ALT Alkaline Phosphatase Troponin I 0.488 H B-Natriuretic Peptide Total Protein Albumin Globulin Triglycerides 123 Cholesterol 125 LDL Cholesterol 70 VLDL Cholesterol 25 HDL Cholesterol 30 L TSH Urine Color Urine Clarity Urine pH Ur Specific [place] Urine Protein Urine Glucose (UA) Urine Ketones Urine Occult Blood Urine Nitrite Urine Bilirubin Urine Urobilinogen Ur Leukocyte Esterase Urine RBC Urine WBC Ur Squamous Epith Cells Urine Bacteria Urine Mucus MRSA (PCR) POC Glucose 132 H 08/18/18 08/18/18 08/18/18 08:22 08:22 12:23 WBC RBC Hgb Hct MCV MCH MCHC RDW RDW Differential Plt Count MPV Immature Gran % (Auto) Neut % (Auto) Lymph % (Auto) Lassen % (Auto) Eos % (Auto) Baso % (Auto) Absolute Neuts (auto) Absolute Lymphs (auto) Total Counted PT INR APTT Specimen Type Sample Site pH Bicarbonate Actual POC Total CO2 Base Excess O2 Saturation O2 % ABG pCO2 ABG pO2 Cheng Test Respiration Rate O2 Delivery Device Vent Mode Tidal Volume POC PEEP Blood Gas Notified Whom Blood Gas Notified Time Sodium 146 H Potassium 3.6 Chloride 116 H Carbon Dioxide 21.0 Anion Gap 9 BUN 20 H Creatinine 0.69 L Estim Creat Clear Calc 148.54 Est GFR (MDRD) Af Amer 161 Est GFR (MDRD) Non-Af 133 BUN/Creatinine Ratio 29.0 H Glucose 101 Hemoglobin A1c Lactic Acid Calcium 5.7 L* Total Bilirubin Direct Bilirubin AST ALT Alkaline Phosphatase Troponin I 0.485 H B-Natriuretic Peptide Total Protein Albumin Globulin Triglycerides Cholesterol LDL Cholesterol VLDL Cholesterol HDL Cholesterol TSH Urine Color Urine Clarity Urine pH Ur Specific [place] Urine Protein Urine Glucose (UA) Urine Ketones Urine Occult Blood Urine Nitrite Urine Bilirubin Urine Urobilinogen Ur Leukocyte Esterase Urine RBC Urine WBC Ur Squamous Epith Cells Urine Bacteria Urine Mucus MRSA (PCR) POC Glucose 125 H 08/18/18 08/18/18 08/18/18 12:50 18:09 23:48 WBC RBC Hgb Hct MCV MCH MCHC RDW RDW Differential Plt Count MPV Immature Gran % (Auto) Neut % (Auto) Lymph % (Auto) Lassen % (Auto) Eos % (Auto) Baso % (Auto) Absolute Neuts (auto) Absolute Lymphs (auto) Total Counted PT INR APTT Specimen Type Sample Site pH Bicarbonate Actual POC Total CO2 Base Excess O2 Saturation O2 % ABG pCO2 ABG pO2 Cheng Test Respiration Rate O2 Delivery Device Vent Mode Tidal Volume POC PEEP Blood Gas Notified Whom Blood Gas Notified Time Sodium Potassium Chloride Carbon Dioxide Anion Gap BUN Creatinine Estim Creat Clear Calc Est GFR (MDRD) Af Amer Est GFR (MDRD) Non-Af BUN/Creatinine Ratio Glucose Hemoglobin A1c Lactic Acid Calcium Total Bilirubin Direct Bilirubin AST ALT Alkaline Phosphatase Troponin I 0.506 H B-Natriuretic Peptide Total Protein Albumin Globulin Triglycerides Cholesterol LDL Cholesterol VLDL Cholesterol HDL Cholesterol TSH Urine Color Urine Clarity Urine pH Ur Specific [place] Urine Protein Urine Glucose (UA) Urine Ketones Urine Occult Blood Urine Nitrite Urine Bilirubin Urine Urobilinogen Ur Leukocyte Esterase Urine RBC Urine WBC Ur Squamous Epith Cells Urine Bacteria Urine Mucus MRSA (PCR) POC Glucose 135 H 162 H 08/19/18 08/19/18 05:10 05:51 WBC RBC Hgb Hct MCV MCH MCHC RDW RDW Differential Plt Count MPV Immature Gran % (Auto) Neut % (Auto) Lymph % (Auto) [place]assen % (Auto) Eos % (Auto) Baso % (Auto) Absolute Neuts (auto) Absolute Lymphs (auto) Total Counted PT INR APTT Specimen Type Sample Site pH Bicarbonate Actual POC Total CO2 Base Excess O2 Saturation O2 % ABG pCO2 ABG pO2 Cheng Test Respiration Rate O2 Delivery Device Vent Mode Tidal Volume POC PEEP Blood Gas Notified Whom Blood Gas Notified Time Sodium Potassium Chloride Carbon Dioxide Anion Gap BUN Creatinine Estim Creat Clear Calc Est GFR (MDRD) Af Amer Est GFR (MDRD) Non-Af BUN/Creatinine Ratio Glucose Hemoglobin A1c Lactic Acid Calcium Total Bilirubin Direct Bilirubin AST ALT Alkaline Phosphatase Troponin I 0.229 H B-Natriuretic Peptide Total Protein Albumin Globulin Triglycerides Cholesterol LDL Cholesterol VLDL Cholesterol HDL Cholesterol TSH Urine Color Urine Clarity Urine pH Ur Specific [place] Urine Protein Urine Glucose (UA) Urine Ketones Urine Occult Blood Urine Nitrite Urine Bilirubin Urine Urobilinogen Ur Leukocyte Esterase Urine RBC Urine WBC Ur Squamous Epith Cells Urine Bacteria Urine Mucus MRSA (PCR) POC Glucose 169 H Microbiology 08/17/18 23:10 Sputum, Induced/Lukens Gram Stain - Final 08/18/18 07:35 Mucosa - Nasopharyngeal Respiratory Panel (PCR) - Final 08/17/18 17:30 Urine Catheter - Catheter Legionella Antigen - Final 08/17/18 17:30 Urine Catheter - Catheter Streptococcus pneumoniae Antigen (M - Final Clinical Impression(s) from Imaging Studies Chest X-Ray 08/17/18 13:58 IMPRESSION: Low lung volumes. Grossly clear lungs. Electronically Signed: Patrice Roth at 14:26 EST Tel , Service support , Chest CTA 08/17/18 14:07 IMPRESSION: No large central pulmonary embolism. Extensive multi focal lung disease. Leading differential considerations are infectious disease and pulmonary edema. N.B. : The above information has been verbally conveyed by Pillo Streeter MD to MORENA Wheeler, on 08/17/2018 15:49:36 (ET). Electronically Signed: Pillo Streeter MD at 14:54 EST Tel , Service support , ADDENDUM: 08/17/18 1607 Chest X-Ray 08/17/18 14:55 IMPRESSION: The endotracheal tube is high and should be advanced at least 6 cm. The tube is now nearly 11 cm above the sameera and above the clavicles. Consider edema and/or diffuse atypical infiltrates. N.B. : The above information has been verbally conveyed by Indiana Flores MD to DR ANA MATOS MD, on 08/17/2018 15:54:30 (ET). Electronically Signed: Indiana Flores MD at 15:43 EST Tel , Service support , KUB X-Ray 08/17/18 17:24 IMPRESSION: Tip of orogastric tube projected over the duodenal bulb. Electronically Signed: Bart Cervantes MD at 20:14 EST , Service support , Medical Necessity - Tobacco Use Smoking Status: Former smoker Assessment/Plan All Active Problems Hypertensive emergency (Acute) Flash pulmonary edema (Acute) S/P inguinal hernia repair (Acute) Thrombocytopenia (Acute) Chest pain (Acute) Elevated CPK (Acute) RECOMMENDATIONS: 1. Proceed with a trial of extubation this morning. 2. Once extubated, wean supplemental oxygen to maintain saturations at or above 90%. 3. Perform bedside swallow evaluation and advance diet accordingly. 4. Continue empiric antibiotics, pending finalized infectious workup. 5. Blood pressure control per cardiology recommendations. 6. Await echocardiogram. The patient may require further diuresis. 7. Encourage aggressive incentive spirometer use/PEP therapy and mobilize patient as tolerated. IMPRESSIONS: 1. Acute hypoxemic respiratory failure with concern for flash pulmonary edema The patient initially presented to the hospital with hypertensive emergency and what appeared to be flash pulmonary edema, necessitating emergent intubation. His hemodynamics have improved and his ventilator requirements are minimal. The patient does appear to have a rhinovirus upper respiratory infection. Nevertheless, the patient's antibiotics will be continued, pending finalized bacterial infectious workup. The patient did well this morning on his spontaneous breathing trial and is currently a candidate for a trial of extubation. Once extubated, his supplemental oxygen will be weaned accordingly. Would plan to perform a bedside swallow evaluation and advance diet accordingly. A surface echocardiogram is currently pending. The patient may require additional diuresis. Recommend continuing aggressive incentive spirometry/PEP therapy. Mobilize patient as tolerated. 2. Hypertensive emergency The patient's hemodynamics have stabilized since his initial admission. He is no longer requiring a nitro infusion. Continue antihypertensive regimen per cardiology recommendations. 3. Troponin elevation Likely secondary to demand ischemia in the setting of the above. However, cardiology is following so will defer management to them accordingly. Surface echocardiogram is currently pending. 4. Morbid obesity/hypertension/hyperlipidemia/diabetes Complicates care, management, recovery and prognosis. Hold metformin and continue Accu-Cheks and sliding scale insulin coverage. TIME: 35 minutes of critical care time, independent of procedures, was spent addressing the patient's acute hypoxemic respiratory failure, hypertensive em ergency, troponin elevation, review of all data and collaboration with the care team. ([id number]) Code Visit [id number]: [id number] Critical care first hour
--- NOTE | 2018-08-19 07:59 | PCM.PN.HOSP ---
Patient Problems: Active and Suspected Problems Hypertensive emergency (Acute) Flash pulmonary edema (Acute) S/P inguinal hernia repair (Acute) Subjective: Patient is a 43-year-old gentleman who underwent inguinal hernia repair on 08/14/2018 presented to the emergency department on 08/17/2018 with progressive shortness of breath and assessment of acute hypertensive crisis with flash pulmonary edema made patient admitted to the intensive care unit for subsequent management Objective: GENERAL: Somewhat lethargic HEENT: Atraumatic; moist oral mucosa EYES; Anicteric, Normal Conjunctiva NECK; supple, normal thyroid, no distended JVD. RESPIRATORY: Diminished to auscultation bilaterally, CARDIOVASCULAR: Regular S1 S2, no audible murmurs GI: soft, non-tender, normoactive bowel sounds, : No Renal angle tenderness; EXTREMITIES: No edema, no clubbing, no cyanosis. MUSCULOSKELETAL: No Joint Tenderness; no muscle waisting NEURO: Awake; no lateralizing signs. SKIN: No Rash PSYCH; Normal affect Vitals/I&O's: Vital Signs Temp Pulse Resp BP Pulse Ox 99.6 F H 106 H 18 164/78 H 91 08/19/18 06:00 08/19/18 06:50 08/19/18 06:50 08/19/18 06:00 08/19/18 06:45 Oxygen Flow Rate (L/min) 4 Oxygen Delivery Method Nasal Cannula Weight: 141.8 kg Body Mass Index (BMI) 43.4 Finger Stick Blood Glucose 174 Intake and Output for Last 24 Hours 08/17/18 08/18/18 08/19/18 23:59 23:59 23:59 Intake Total 1966 / 1966 1209 / 1209 682 / 682 Output Total 830 / 830 1300 / 1300 1050 / 1050 Balance 1137 / 1137 -91 / -91 -368 / -368 Microbiology Past 72 Hours 08/17/18 23:10 Sputum, Induced/Lukens Gram Stain - Final 08/18/18 07:35 Mucosa - Nasopharyngeal Respiratory Panel (PCR) - Final 08/17/18 17:30 Urine Catheter - Catheter Legionella Antigen - Final 08/17/18 17:30 Urine Catheter - Catheter Streptococcus pneumoniae Antigen (M - Final Laboratory Results 08/18/18 05:20: Hemoglobin A1c 7.8 H 08/18/18 08:22: Troponin I 0.485 H 08/18/18 08:22: Sodium 146 H, Potassium 3.6, Chloride 116 H, Carbon Dioxide 21.0, Anion Gap 9, BUN 20 H, Creatinine 0.69 L, Estim Creat Clear Calc 148.54, Est GFR (MDRD) Af Amer 161, Est GFR (MDRD) Non-Af 133, BUN/Creatinine Ratio 29.0 H, Glucose 101, Calcium 5.7 L* 08/18/18 12:23: POC Glucose 125 H 08/18/18 12:50: Troponin I 0.506 H 08/18/18 18:09: POC Glucose 135 H 08/18/18 23:48: POC Glucose 162 H 08/19/18 05:10: Troponin I 0.229 H 08/19/18 05:51: POC Glucose 169 H Current Medications Acetaminophen (Tylenol Liquid) 650 mg GT Q6H PRN PRN PRN Reason: FEVER Last Admin: 08/19/18 00:57 Dose: 650 mg Albuterol Sulfate (Ventolin Aerosols) 2.5 mg INHALATION Q2H PRN PRN PRN Reason: SHORTNESS OF BREATH Albuterol/Ipratropium (Duoneb) 3 ml INHALATION Q4H.RT [facility] Last Admin: 08/19/18 06:50 Dose: 3 ml Aspirin (Aspirin, Baby) 81 mg PO DAILY@0800 [facility] Last Admin: 08/18/18 16:03 Dose: 81 mg Chlorhexidine Gluconate () 15 ml PO BID [facility] Last Admin: 08/18/18 21:38 Dose: 15 ml Chlorhexidine Gluconate () 1 each TOPICAL DAILY [facility] Last Admin: 08/19/18 01:18 Dose: 1 each Dextrose (D50w Syringe) 0 gm IV X1 PRN; Protocol PRN Reason: Hypoglycemia Enoxaparin Sodium (Lovenox) 40 mg SC DAILY@1000 [facility] Last Admin: 08/18/18 10:57 Dose: 40 mg Glucagon () 1 mg IM .X1 PRN PRN Reason: Hypoglycemia Nitroglycerin/Dextrose 25 mg/ (N/A) 250 mls @ 3 mls/hr IV .[id number] [facility] Last Admin: 08/17/18 14:50 Dose: 3 mls/hr Famotidine 20 mg/ Sodium (Chloride) 10 mls @ 300 mls/hr IV Q12 [facility] Last Admin: 08/18/18 21:28 Dose: 300 mls/hr Sodium Chloride () 250 mls @ 15 mls/hr IV .[id number] PRN PRN Reason: SALINE FLUSH Last Admin: 08/17/18 19:36 Dose: 15 mls/hr Azithromycin 500 mg/ Dextrose 255 mls @ 250 mls/hr IV Q24@2200 [facility] Last Admin: 08/18/18 21:29 Dose: 250 mls/hr Ceftriaxone Sodium (Rocephin) 1 gm in 50 mls @ 100 mls/hr IV Q24@2200 [facility] Last Admin: 08/18/18 21:29 Dose: 100 mls/hr Insulin Human Lispro (Humalog Kwikpen (Bkc)) 0 unit SQ Q6 J[facility]; Protocol Last Admin: 08/19/18 05:53 Dose: 1 units Magnesium Hydroxide (Milk Of Magnesia) 30 ml PO DAILY PRN PRN PRN Reason: Constipation Sodium Chloride () 5 - 15 ml IV UD PRN PRN Reason: SALINE FLUSH Last Admin: 08/18/18 19:34 Dose: 15 ml Medical Necessity - Tobacco Use Smoking Status: Former smoker Assessment/Plan All Active Problems Hypertensive emergency (Acute) Flash pulmonary edema (Acute) S/P inguinal hernia repair (Acute) Thrombocytopenia (Acute) Chest pain (Acute) Elevated CPK (Acute) Patient is a 43-year-old gentleman who underwent inguinal hernia repair on 08/14/2018 presented to the emergency department on 08/17/2018 with progressive shortness of breath and assessment of acute hypertensive crisis with flash pulmonary edema made patient admitted to the intensive care unit for subsequent management. 1. Acute hypoxic respiratory failure secondary to come the [place] of flash pulmonary edema and suspected pneumonia; patient was emergently intubated in the ED upon arrival weaned off the vent on the morning of 09/05/2018 2. Acute flash pulmonary edema possibly diastolic dysfunction from patient markedly elevated blood pressure on admission. Patient managed on Lasix 2D echo ordered for EF assessment 3. Suspected community-acquired pneumonia: Respiratory panel was only positive for rhinovirus patient remains on Zithromax as well as Rocephin 4. Acute hypertensive crisis: Patient systolic blood pressure on admission was greater than 200 patient blood pressure has since improved 5. Elevated troponin secondary to type II non-ST LA from demand ischemia is discussed with Dr. Moodispaw patient may need to undergo left heart catheterization or to his discharge 6. Diabetes mellitus type II: patient's oral hypoglycemics held. Placed on long acting insulin, Accu-Cheks a.c. and at bedtime and covered with sliding scale insulin 7. Morbid obesity with BMI of 43.6 8. Status post left inguinal hernia repair on 08/14/[address] Avitia 9. DVT prophylaxis SC Lovenox Active Medications Acetaminophen (Tylenol Liquid) 650 mg GT Q6H PRN PRN PRN Reason: FEVER Last Admin: 08/19/18 00:57 Dose: 650 mg Albuterol Sulfate (Ventolin Aerosols) 2.5 mg INHALATION Q2H PRN PRN PRN Reason: SHORTNESS OF BREATH Albuterol/Ipratropium (Duoneb) 3 ml INHALATION Q4H.RT [facility] Last Admin: 08/19/18 06:50 Dose: 3 ml Aspirin (Aspirin, Baby) 81 mg PO DAILY@0800 [facility] Last Admin: 08/18/18 16:03 Dose: 81 mg Chlorhexidine Gluconate () 15 ml PO BID [facility] Last Admin: 08/18/18 21:38 Dose: 15 ml Chlorhexidine Gluconate () 1 each TOPICAL DAILY [facility] Last Admin: 08/19/18 01:18 Dose: 1 each Dextrose (D50w Syringe) 0 gm IV X1 PRN; Protocol PRN Reason: Hypoglycemia Enoxaparin Sodium (Lovenox) 40 mg SC DAILY@1000 [facility] Last Admin: 08/18/18 10:57 Dose: 40 mg Glucagon () 1 mg IM .X1 PRN PRN Reason: Hypoglycemia Nitroglycerin/Dextrose 25 mg/ (N/A) 250 mls @ 3 mls/hr IV .[id number] [facility] Last Admin: 08/17/18 14:50 Dose: 3 mls/hr Famotidine 20 mg/ Sodium (Chloride) 10 mls @ 300 mls/hr IV Q12 [facility] Last Admin: 08/18/18 21:28 Dose: 300 mls/hr Sodium Chloride () 250 mls @ 15 mls/hr IV .[id number] PRN PRN Reason: SALINE FLUSH Last Admin: 08/17/18 19:36 Dose: 15 mls/hr Azithromycin 500 mg/ Dextrose 255 mls @ 250 mls/hr IV Q24@2200 [facility] Last Admin: 08/18/18 21:29 Dose: 250 mls/hr Ceftriaxone Sodium (Rocephin) 1 gm in 50 mls @ 100 mls/hr IV Q24@2200 [facility] Last Admin: 08/18/18 21:29 Dose: 100 mls/hr Insulin Human Lispro (Humalog Kwikpen (Bkc)) 0 unit SQ Q6 [facility]; Protocol Last Admin: 08/19/18 05:53 Dose: 1 units Magnesium Hydroxide (Milk Of Magnesia) 30 ml PO DAILY PRN PRN PRN Reason: Constipation Sodium Chloride () 5 - 15 ml IV UD PRN PRN Reason: SALINE FLUSH Last Admin: 08/18/18 19:34 Dose: 15 ml Clinical Impression(s) from Imaging Studies Chest X-Ray 08/17/18 13:58 IMPRESSION: Low lung volumes. Grossly clear lungs. Electronically Signed: Patrice Roth, at 14:26 EST Tel , Service support , Chest CTA 08/17/18 14:07 IMPRESSION: No large central pulmonary embolism. Extensive multi focal lung disease. Leading differential considerations are infectious disease and pulmonary edema. N.B. : The above information has been verbally conveyed by Pillo Streeter MD to MORENA Wheeler, on 08/17/2018 15:49:36 (ET). Electronically Signed: Pillo Streeter MD at 14:54 EST Tel , Service support , ADDENDUM: 08/17/18 1607 Chest X-Ray 08/17/18 14:55 IMPRESSION: The endotracheal tube is high and should be advanced at least 6 cm. The tube is now nearly 11 cm above the sameera and above the clavicles. Consider edema and/or diffuse atypical infiltrates. N.B. : The above information has been verbally conveyed by Indiana Flores MD to DR ANA MATOS MD, on 08/17/2018 15:54:30 (ET). Electronically Signed: Indiana Flores MD at 15:43 EST Tel , Service support , KUB X-Ray 08/17/18 17:24 IMPRESSION: Tip of orogastric tube projected over the duodenal bulb. Electronically Signed: Bart Cervantes MD at 20:14 EST , Service support ,
[2018-08-19 08:46] LABS: Hematocrit 37.4 % (40-54); Hemoglobin 12.4 g/dl (13.0-16.5); Mean Corp Hgb Conc 33.2 g/gl (32-36); Mean Corpuscular Hgb 32.8 pg (27.0-32.0); Mean Corpuscular Volume 98.9 fL (80-94); Mean Platelet Vol. 11.6 fl (6.2-12.0); Platelet Count 127 K/mm3 (150-450); RBC Distribution Width SD 49.3 fl (35.1-43.9); Red Blood Count 3.78 M/mm3 (4.6-6.2); White Blood Count 6.4 K/mm3 (4.4-11.0)
[2018-08-19 08:48] LABS: Scan Indicated on CBC? Y/N NO
[2018-08-19 08:53] LABS: Anion Gap 9 (5-15); BUN 33 mg/dL (7-18); BUN/Creat Ratio 39.5 RATIO (10-20); Calcium,Total 7.9 mg/dL (8.5-10.1); Chloride 107 mmol/L (98-107); Creatinine, Serum 0.84 mg/dL (0.70-1.30); EST Glomerular Filtration Rate 107 mL/min (>60); Est Glom Filt Rate - Afr Amer 130 mL/min (>60); Estimated Creatinine Clearance 122.01 ml/min; Glucose 170 mg/dL (74-106); Magnesium 2.3 mg/dL (1.6-2.6); Potassium 4.5 mmol/L (3.5-5.1); Sodium Level 140 mmol/L (136-145)
[2018-08-19] MEDS: Enoxaparin 40 MG/0.4 ML Syringe SC (10:51)
[2018-08-19] MEDS: Menthol/Lanolin/Calamine/Znox 113 GM Tube 1 APPLIC TOPICAL ×3 (10:51→21:03)
[2018-08-19] MEDS: Aspirin 81 MG TAB.CHEW PO (10:51)
--- NOTE | 2018-08-19 12:50 | CASEMGMT ---
LEEANNA SALCEDO assessment: Face to Face with patient for initial transition planning/care coordination assessment. LEEANNA SALCEDO introduced self and role at [facility], pt voices understanding and consents to assessment at this time. Pt is sitting up in bed in no distress at this time. Pt is A/Ox4 at this time and answers all questions appropriately at this time. Pt's parents at bedside during assessment. Care providers, pharmacy, and demographics verified/updated at this time. PCP: Esteban Specialists: Pt states currently has no specialists. [facility] Insurance: [employer] Prescription Benefit: [employer] Living Will/HPOA: Pt's mother states that he has LW/HPOA and that they gave a copy to ED at admission. Pt's mother is HPOA. LNOK: Letty Connolly, mother Living Arrangements: Pt normally lives on own in apartment with no steps, but has been staying with parents since his hernia surgery. Pt states no concerns with going home with parents at time of discharge. Transportation: Pt states family/friends drive and states no transportation concerns at this time. DME/HHC: Pt has a cpap but he is not compliant per mother. Pt states no need for any further DME at this time. Pt states no concerns with going home at time of discharge. 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 Pt states does not smoke or drink ETOH. Pt states no further concerns/needs at this time. CM to follow for home oxygen need, PT/OT, and for any further discharge planning/needs. Advised pt to ask for CM if any further questions/concerns/needs arise, voices understanding. Plan: Home w/ parents. S[place]en LEEANNA SALCEDO
[2018-08-19] MEDS: Furosemide 40 MG/4 ML Vial IV (13:40)
[2018-08-19] MEDS: 0.9% NaCl Peripheral Flush Adult/Peds IV ×2 (13:40→13:41)
--- NOTE | 2018-08-19 15:53 | PCM.PN.CARD ---
Subjectve: The patient was evaluated earlier this day. He was extubated. He denied any ongoing chest discomfort. He had no issues of recurrent acute shortness of breath/dyspnea. He does admit that he does not take his medications on a regular basis. Objective: Vital Signs Temp Pulse Resp BP Pulse Ox 96.4 F L 92 25 H 150/76 H 93 08/19/18 12:00 08/19/18 15:11 08/19/18 15:00 08/19/18 15:00 08/19/18 15:00 Oxygen Flow Rate (L/min) 5 Oxygen Delivery Method Nasal Cannula Weight: 312 lb 9.848 oz Body Mass Index (BMI) 43.4 Finger Stick Blood Glucose 174 Intake and Output for Last 24 Hours 08/17/18 08/18/18 08/19/18 23:59 23:59 23:59 Intake Total 1966 / 1966 1209 / 1209 922 / 922 Output Total 830 / 830 1300 / 1300 1925 / 1925 Balance 1137 / 1137 -91 / -91 -1003 / -1003 General: Awake, Alert, Oriented x 3, Cooperative, No Acute Distress, Obese HEENT: Atraumatic, Normocephalic, PERRL, EOMI, Sclera Non Icteric Oral: Moist Mucosa, Poor Dentition Neck: Supple, Good ROM, No JVD Lungs: - - Scattered rhonchi Cardiovascular: Regular Rhythm, Normal S1, Normal S2 Vascular: No Carotid Bruits Abdomen: Bowel Sounds Present, Soft, Non Tender Extremities: Trace RLE Edema, Trace LLE Edema Psych/Mental Status: Appropriate 08/19/18 05:10: Troponin I 0.229 H 08/19/18 05:10: Sodium 140, Potassium 4.5, Chloride 107, Carbon Dioxide 24.0, Anion Gap 9, BUN 33 H, Creatinine 0.84, Est GFR (MDRD) Af Amer 130, Est GFR (MDRD) Non-Af 107, BUN/Creatinine Ratio 39.5 H, Glucose 170 H, Calcium 7.9 L, Magnesium 2.3 08/19/18 08:38: WBC 6.4, RBC 3.78 L, Hgb 12.4 L, Hct 37.4 L, MCV 98.9 H, MCH 32.8 H, MCHC 33.2, RDW 14.0, RDW Differential 49.3 H, Plt Count 127 L, MPV 11.6 Rhythm: Sinus rhythm EKG: Sinus rhythm; no acute ECG changes ECHO: Luminary evaluation: Technically difficult study: Contrast-enhancement required: Left ventricle appeared to be normal with respect to wall motion and systolic function with an estimated LVEF of 70%: Please see official report Medical Necessity - Tobacco Use Smoking Status: Former smoker Assessment/Plan 1. Hypertensive emergency The patient presented with a systolic blood pressure in excess of 200 mmHg. This was associated with concerns of pulmonary edema and hypoxia. Status post improving his blood pressure and volume status his pulmonary status has improved and he is now extubated. He will need to continue medical adjustment as deemed appropriate to maintain adequate blood pressure control. 2. Flash pulmonary edema The patient presents with a scenario compatible with underlying flash pulmonary edema possibly secondary to his marked hypertension. At the present time his initial cardiac enzymes are negative. His initial ECG demonstrates no acute ECG changes. His chest CT scan was reported by radiology as demonstrating no definitive pulmonary embolus, however, it appears that this was a diminished quality chest CT scan. Cardiac enzymes have been followed. They have been indeterminate. This may be secondary to his hypertensive event. He will continue medical therapy for concerns of his hypertension and the possibility of underlying cardiovascular disease based upon his risk factors. As he symptomatically and hemodynamically improves as well as being treated for an underlying pneumonia process he will be considered for further evaluation with diagnostic cardiac catheterization to evaluate his coronary anatomy, etc. 3. Hyperlipidemia He will continue medical management as deemed appropriate. 4. Diabetes mellitus He will continue under the care of internal medicine for this. 5. Obesity The patient is unfortunately overweight/obese. This does make it challenging with respect to performing and interpreting diagnostic imaging studies, etc. Hopefully, as the patient recuperates from his event, in the future, he can bring his weight under better control. 6. Status post right inguinal hernia repair He can be further evaluated by internal medicine and/or general surgery as deemed appropriate for this. Comment: The patient's case has been discussed and reviewed with the patient and the [facility] staff. This note was generated using a voice recognition system and there may be incorrect words, spelling or punctuation that were not noted when reviewing the office note prior to saving.
[2018-08-19 16:40] LABS: AST(SGOT) 102 U/L (15-37); Alanine Aminotransfer ALT/SGPT 52 U/L (16-61); Albumin, Serum 2.5 g/dL (3.2-5.0); Alkaline Phosphatase 116 U/L (45-117); Bilirubin, Direct 0.38 mg/dL (0.00-0.30); Cholesterol 135 mg/dL (200); Globulin 4.7 g/dL (2.2-4.2); High Density Lipoprotein 26 mg/dL; Protein, Total 7.2 g/dL (6.4-8.2); Triglycerides 203 mg/dL; Very Low Density Lipoprotein 41 mg/dL (5-40)
[2018-08-19] MEDS: Metoprolol Tartrate 25 MG Tablet PO ×2 (16:58→21:05)
[2018-08-19] MEDS: Lisinopril 10 MG Tablet PO ×2 (16:58→21:04)
[2018-08-19] MEDS: Ceftriaxone 1 GM/50 ML BAG IV (21:03)
[2018-08-19] MEDS: Atorvastatin Calcium 20 MG Tablet PO (21:04)
[2018-08-20] VITALS (33 sets, daily range): BP systolic 134–171; BP diastolic 56–99; PULSE 63–92; RESP 16–33; TEMP 36.6–37.2; O2SAT 91–97
[2018-08-20 04:32] LABS: Hematocrit 35.4 % (40-54); Hemoglobin 11.9 g/dl (13.0-16.5); Mean Corp Hgb Conc 33.6 g/gl (32-36); Mean Corpuscular Hgb 33.1 pg (27.0-32.0); Mean Corpuscular Volume 98.6 fL (80-94); Mean Platelet Vol. 11.8 fl (6.2-12.0); Platelet Count 128 K/mm3 (150-450); RBC Distribution Width CV 13.5 % (11.6-14.6); Red Blood Count 3.59 M/mm3 (4.6-6.2); White Blood Count 6.4 K/mm3 (4.4-11.0)
[2018-08-20 04:34] LABS: Scan Indicated on CBC? Y/N NO
[2018-08-20 04:38] LABS: Anion Gap 7 (5-15); BUN 19 mg/dL (7-18); Calcium,Total 8.2 mg/dL (8.5-10.1); Chloride 107 mmol/L (98-107); Creatinine, Serum 0.51 mg/dL (0.70-1.30); EST Glomerular Filtration Rate 187 mL/min (>60); Est Glom Filt Rate - Afr Amer 227 mL/min (>60); Estimated Creatinine Clearance 200.96 ml/min; Glucose 140 mg/dL (74-106); Potassium 4.4 mmol/L (3.5-5.1); Sodium Level 144 mmol/L (136-145)
--- NOTE | 2018-08-20 06:36 | PCM.PN.INT ---
Subjective: The patient was seen and examined at the bedside this morning. Events from the last 24 hours have been reviewed. The patient is currently afebrile, hemodynamically stable and maintaining appropriate oxygen saturations on 3 L/min via nasal cannula. The patient was documented to be overall net -2.7 L yesterday. The patient denies the presence of shortness of breath or cough this morning. He reports that he slept poorly overnight. Objective: The patient's most recent lab work, culture data and imaging studies have all been personally reviewed. Respiratory viral panel was positive for rhinovirus. Sputum Gram stain revealed 2+ white blood cells without organisms seen. Strep and urine Legionella antigens were both negative. Blood and urine cultures are pending. A CTA chest was obtained which revealed limited enhancement of the bilateral peripheral pulmonary arteries. Bilateral groundglass opacities were noted, along with incidental finding of splenomegaly, splenic varices and paraesophageal varices. General: Alert, Cooperative, No apparent distress, - - Morbidly obese HEENT: Atraumatic, PERRLA, Normocephalic Oral: No Gingival or Mucosal Lesions/ Ulcerations, - - Poor generalized dentition Neck: Supple, No Nodes, Trachea Midline Lungs: No rhonchi, No wheeze, No rales, Diminished Cardiovascular: Regular rate, Regular Rhythm, Normal S1, Normal S2, No murmurs Abdomen: Bowel Sounds Present, Soft, Non Tender, Obese Extremities: No clubbing, No cyanosis, No edema Skin: - - No significant change from previous. Musculoskeletal: No Tenderness to Palpation of Joints or Extremities, No Muscle Wasting Lymphatic: No Cervical, Supraclavicular, or Inguinal Adenopathy Neurological: Cranial nerves II-XII grossly intact, Neuro grossly intact Psych/Mental Status: Normal Affect, Appropriate Vital Signs Temp Pulse Resp BP Pulse Ox 37.2 C 85 29 H 147/62 H 92 08/20/18 04:00 08/20/18 04:00 08/20/18 04:00 08/20/18 04:00 08/20/18 04:00 Oxygen Flow Rate (L/min) 3 Oxygen Delivery Method Nasal Cannula Weight: 311 lb 4.683 oz Body Mass Index (BMI) 43.4 Finger Stick Blood Glucose 174 Intake and Output for Last 24 Hours 08/18/18 08/19/18 08/20/18 23:59 23:59 23:59 Intake Total 1209 / 1209 1352 / 1352 Output Total 1300 / 1300 4050 / 4050 Balance -91 / -91 -2698 / -2698 Labs (Last 48 Hours) 08/18/18 08/18/18 08/18/18 05:20 05:20 05:20 WBC 9.2 RBC 3.93 L Hgb 12.8 L Hct 38.3 L MCV 97.5 H MCH 32.6 H MCHC 33.4 RDW 13.9 RDW Differential 48.0 H Plt Count 158 MPV 12.1 H Sodium 140 Potassium 6.1 H* Chloride 105 Carbon Dioxide 26.0 Anion Gap 9 BUN 24 H Creatinine 1.07 Estim Creat Clear Calc 95.79 Est GFR (MDRD) Af Amer 97 Est GFR (MDRD) Non-Af 80 BUN/Creatinine Ratio 22.4 H Glucose 125 H Hemoglobin A1c 7.8 H Calcium 7.6 L Magnesium Total Bilirubin Direct Bilirubin AST ALT Alkaline Phosphatase Troponin I 0.488 H Total Protein Albumin Globulin Triglycerides 123 Cholesterol 125 LDL Cholesterol 70 VLDL Cholesterol 25 HDL Cholesterol 30 L POC Glucose 08/18/18 08/18/18 08/18/18 08:22 08:22 12:23 WBC RBC Hgb Hct MCV MCH MCHC RDW RDW Differential Plt Count MPV Sodium 146 H Potassium 3.6 Chloride 116 H Carbon Dioxide 21.0 Anion Gap 9 BUN 20 H Creatinine 0.69 L Estim Creat Clear Calc 148.54 Est GFR (MDRD) Af Amer 161 Est GFR (MDRD) Non-Af 133 BUN/Creatinine Ratio 29.0 H Glucose 101 Hemoglobin A1c Calcium 5.7 L* Magnesium Total Bilirubin Direct Bilirubin AST ALT Alkaline Phosphatase Troponin I 0.485 H Total Protein Albumin Globulin Triglycerides Cholesterol LDL Cholesterol VLDL Cholesterol HDL Cholesterol POC Glucose 125 H 08/18/18 08/18/18 08/18/18 12:50 18:09 23:48 WBC RBC Hgb Hct MCV MCH MCHC RDW RDW Differential Plt Count MPV Sodium Potassium Chloride Carbon Dioxide Anion Gap BUN Creatinine Estim Creat Clear Calc Est GFR (MDRD) Af Amer Est GFR (MDRD) Non-Af BUN/Creatinine Ratio Glucose Hemoglobin A1c Calcium Magnesium Total Bilirubin Direct Bilirubin AST ALT Alkaline Phosphatase Troponin I 0.506 H Total Protein Albumin Globulin Triglycerides Cholesterol LDL Cholesterol VLDL Cholesterol HDL Cholesterol POC Glucose 135 H 162 H 08/19/18 08/19/1818 05:10 05:10 05:10 WBC RBC Hgb Hct MCV MCH MCHC RDW RDW Differential Plt Count MPV Sodium 140 Potassium 4.5 Chloride 107 Carbon Dioxide 24.0 Anion Gap 9 BUN 33 H Creatinine 0.84 Estim Creat Clear Calc 122.01 Est GFR (MDRD) Af Amer 130 Est GFR (MDRD) Non-Af 107 BUN/Creatinine Ratio 39.5 H Glucose 170 H Hemoglobin A1c Calcium 7.9 L Magnesium 2.3 Total Bilirubin 0.70 Direct Bilirubin 0.38 H AST 102 H ALT 52 Alkaline Phosphatase 116 Troponin I 0.229 H Total Protein 7.2 Albumin 2.5 L Globulin 4.7 H Triglycerides 203 H Cholesterol 135 LDL Cholesterol 68 VLDL Cholesterol 41 H HDL Cholesterol 26 L POC Glucose 08/19/18 08/19/18 08/20/18 05:51 08:38 04:05 WBC 6.4 6.4 RBC 3.78 L 3.59 L Hgb 12.4 L 11.9 L Hct 37.4 L 35.4 L MCV 98.9 H 98.6 H MCH 32.8 H 33.1 H MCHC 33.2 33.6 RDW 14.0 13.5 RDW Differential 49.3 H 47.0 H Plt Count 127 L 128 L MPV 11.6 11.8 Sodium Potassium Chloride Carbon Dioxide Anion Gap BUN Creatinine Estim Creat Clear Calc Est GFR (MDRD) Af Amer Est GFR (MDRD) Non-Af BUN/Creatinine Ratio Glucose Hemoglobin A1c Calcium Magnesium Total Bilirubin Direct Bilirubin AST ALT Alkaline Phosphatase Troponin I Total Protein Albumin Globulin Triglycerides Cholesterol LDL Cholesterol VLDL Cholesterol HDL Cholesterol POC Glucose 169 H 08/20/18 04:05 WBC RBC Hgb Hct MCV MCH MCHC RDW RDW Differential Plt Count MPV Sodium 144 Potassium 4.4 Chloride 107 Carbon Dioxide 30.0 Anion Gap 7 BUN 19 H Creatinine 0.51 L Estim Creat Clear Calc 200.96 Est GFR (MDRD) Af Amer 227 Est GFR (MDRD) Non-Af 187 BUN/Creatinine Ratio 37.0 H Glucose 140 H Hemoglobin A1c Calcium 8.2 L Magnesium Total Bilirubin Direct Bilirubin AST ALT Alkaline Phosphatase Troponin I Total Protein Albumin Globulin Triglycerides Cholesterol LDL Cholesterol VLDL Cholesterol HDL Cholesterol POC Glucose Microbiology 08/17/18 23:10 Sputum, Induced/Lukens Gram Stain - Final 08/17/18 23:10 Sputum, Induced/Lukens Respiratory Culture - Preliminary Appears to be normal respiratory tico. Further studies to follow. 08/17/18 15:50 Urine Catheter - Catheter Urine Culture - Preliminary Culture exhibits no growth. 08/18/18 07:35 Mucosa - Nasopharyngeal Respiratory Panel (PCR) - Final Clinical Impression(s) from Imaging Studies Chest X-Ray 08/17/18 13:58 IMPRESSION: Low lung volumes. Grossly clear lungs. Electronically Signed: Patrice Roth, at 14:26 EST Tel , Service support , Chest CTA 08/17/18 14:07 IMPRESSION: No large central pulmonary embolism. Extensive multi focal lung disease. Leading differential considerations are infectious disease and pulmonary edema. N.B. : The above information has been verbally conveyed by Pillo Streeter MD to MORENA Wheeler, on 08/17/2018 15:49:36 (ET). Electronically Signed: Pillo Streeter MD at 14:54 EST Tel , Service support , ADDENDUM: 08/17/18 1607 Chest X-Ray 08/17/18 14:55 IMPRESSION: The endotracheal tube is high and should be advanced at least 6 cm. The tube is now nearly 11 cm above the sameera and above the clavicles. Consider edema and/or diffuse atypical infiltrates. N.B. : The above information has been verbally conveyed by Indiana Flores MD to DR ANA MATOS MD, on 08/17/2018 15:54:30 (ET). Electronically Signed: Indiana Flores MD at 15:43 EST Tel , Service support , KUB X-Ray 08/17/18 17:24 IMPRESSION: Tip of orogastric tube projected over the duodenal bulb. Electronically Signed: Bart Cervantes MD at 20:14 EST , Service support , Medical Necessity - Tobacco Use Smoking Status: Former smoker Assessment/Plan All Active Problems Hypertensive emergency (Acute) Flash pulmonary edema (Acute) S/P inguinal hernia repair (Acute) Thrombocytopenia (Acute) Chest pain (Acute) Elevated CPK (Acute) RECOMMENDATIONS: 1. Continue to wean supplemental oxygen to maintain saturations at or above 90%. 2. Encourage incentive spirometer use and mobilize patient as tolerated. 3. Okay to discontinue antibiotics from my perspective. Bacterial infectious workup has been unrevealing. 4. Blood pressure control per cardiology recommendations. IMPRESSIONS: 1. Acute hypoxemic respiratory failure with concern for flash pulmonary edema The patient initially presented to the hospital with hypertensive emergency and what appeared to be flash pulmonary edema, necessitating emergent intubation. The patient's hemodynamics subsequently improved and he was able to be liberated from mechanical ventilation on August 19. In addition to the aforementioned, the patient does appear to have a rhinovirus URI as well. Bacterial infectious workup has been negative to date. Therefore, antibiotics can be discontinued from my perspective. Would plan to continue to wean supplemental oxygen to maintain saturations at or above 90%. Encourage aggressive incentive spirometer use and mobilize patient as tolerated. Surface echocardiogram was largely unremarkable. 2. Hypertensive emergency Resolved. The patient's hemodynamics have stabilized since his initial admission. He is no longer requiring a nitro infusion. Continue antihypertensive regimen per cardiology recommendations. 3. Troponin elevation Likely secondary to demand ischemia in the setting of the above. However, cardiology is following so will defer management to them accordingly. Surface echocardiogram revealed no wall motion abnormalities and normal ejection fraction. 4. Morbid obesity/hypertension/hyperlipidemia/diabetes Complicates care, management, recovery and prognosis. Continue Accu-Cheks and sliding scale insulin coverage. This note was generated with [employer] dictation software. It may contain incorrect words, spelling, and punctuation that were not noted in checking the note before signing. DISPOSITION: The patient is medically stable for transfer out of the intensive care unit. Code Visit Inpatient E&M: 01034 Subs Hosp L3
--- NOTE | 2018-08-20 06:40 | PN_ITS ---
Subjective: The patient was seen and examined at the bedside this morning. Events from the last 24 hours have been reviewed. The patient is currently afebrile, hemodynamically stable and maintaining appropriate oxygen saturations on 3 L/min via nasal cannula. The patient was documented to be overall net -2.7 L yesterday. The patient denies the presence of shortness of breath or cough this morning. He reports that he slept poorly overnight. Objective: The patient's most recent lab work, culture data and imaging studies have all been personally reviewed. Respiratory viral panel was positive for rhinovirus. Sputum Gram stain revealed 2+ white blood cells without organisms seen. Strep and urine Legionella antigens were both negative. Blood and urine cultures are pending. A CTA chest was obtained which revealed limited enhancement of the bilateral peripheral pulmonary arteries. Bilateral groundglass opacities were n oted, along with incidental finding of splenomegaly, splenic varices and paraesophageal varices. General: Alert, Cooperative, No apparent distress, - - Morbidly obese HEENT: Atraumatic, PERRLA, Normocephalic Oral: No Gingival or Mucosal Lesions/ Ulcerations, - - Poor generalized dentition Neck: Supple, No Nodes, Trachea Midline Lungs: No rhonchi, No wheeze, No rales, Diminished Cardiovascular: Regular rate, Regular Rhythm, Normal S1, Normal S2, No murmurs Abdomen: Bowel Sounds Present, Soft, Non Tender, Obese Extremities: No clubbing, No cyanosis, No edema Skin: - - No significant change from previous. Musculoskeletal: No Tenderness to Palpation of Joints or Extremities, No Muscle Wasting Lymphatic: No Cervical, Supraclavicular, or Inguinal Adenopathy Neurological: Cranial nerves II-XII grossly intact, Neuro grossly intact Psych/Mental Status: Normal Affect, Appropriate Vital Signs Temp Pulse Resp BP Pulse Ox 37.2 C 85 29 H 147/62 H 92 08/20/18 04:00 08/20/18 04:00 08/20/18 04:00 08/20/18 04:00 08/20/18 04:00 Oxygen Flow Rate (L/min) 3 Oxygen Delivery Method Nasal Cannula Weight: 311 lb 4.683 oz Body Mass Index (BMI) 43.4 Finger Stick Blood Glucose 174 Intake and Output for Last 24 Hours 08/18/18 08/19/18 08/20/18 23:59 23:59 23:59 Intake Total 1209 / 1209 1352 / 1352 Output Total 1300 / 1300 4050 / 4050 Balance -91 / -91 -2698 / -2698 Labs (Last 48 Hours) 08/18/18 08/18/18 08/18/18 05:20 05:20 05:20 WBC 9.2 RBC 3.93 L Hgb 12.8 L Hct 38.3 L MCV 97.5 H MCH 32.6 H MCHC 33.4 RDW 13.9 RDW Differential 48.0 H Plt Count 158 MPV 12.1 H Sodium 140 Potassium 6.1 H* Chloride 105 Carbon Dioxide 26.0 Anion Gap 9 BUN 24 H Creatinine 1.07 Estim Creat Clear Calc 95.79 Est GFR (MDRD) Af Amer 97 Est GFR (MDRD) Non-Af 80 BUN/Creatinine Ratio 22.4 H Glucose 125 H Hemoglobin A1c 7.8 H Calcium 7.6 L Magnesium Total Bilirubin Direct Bilirubin AST ALT Alkaline Phosphatase Troponin I 0.488 H Total Protein Albumin Globulin Triglycerides 123 Cholesterol 125 LDL Cholesterol 70 VLDL Cholesterol 25 HDL Cholesterol 30 L POC Glucose 08/18/18 08/18/18 08/18/18 08:22 08:22 12:23 WBC RBC Hgb Hct MCV MCH MCHC RDW RDW Differential Plt Count MPV Sodium 146 H Potassium 3.6 Chloride 116 H Carbon Dioxide 21.0 Anion Gap 9 BUN 20 H Creatinine 0.69 L Estim Creat Clear Calc 148.54 Est GFR (MDRD) Af Amer 161 Est GFR (MDRD) Non-Af 133 BUN/Creatinine Ratio 29.0 H Glucose 101 Hemoglobin A1c Calcium 5.7 L* Magnesium Total Bilirubin Direct Bilirubin AST ALT Alkaline Phosphatase Troponin I 0.485 H Total Protein Albumin Globulin Triglycerides Cholesterol LDL Cholesterol VLDL Cholesterol HDL Cholesterol POC Glucose 125 H 08/18/18 08/18/18 08/18/18 12:50 18:09 23:48 WBC RBC Hgb Hct MCV MCH MCHC RDW RDW Differential Plt Count MPV Sodium Potassium Chloride Carbon Dioxide Anion Gap BUN Creatinine Estim Creat Clear Calc Est GFR (MDRD) Af Amer Est GFR (MDRD) Non-Af BUN/Creatinine Ratio Glucose Hemoglobin A1c Calcium Magnesium Total Bilirubin Direct Bilirubin AST ALT Alkaline Phosphatase Troponin I 0.506 H Total Protein Albumin Globulin Triglycerides Cholesterol LDL Cholesterol VLDL Cholesterol HDL Cholesterol POC Glucose 135 H 162 H 12/12/0208/19/18 08/19/18 05:10 05:10 05:10 WBC RBC Hgb Hct MCV MCH MCHC RDW RDW Differential Plt Count MPV Sodium 140 Potassium 4.5 Chloride 107 Carbon Dioxide 24.0 Anion Gap 9 BUN 33 H Creatinine 0.84 Estim Creat Clear Calc 122.01 Est GFR (MDRD) Af Amer 130 Est GFR (MDRD) Non-Af 107 BUN/Creatinine Ratio 39.5 H Glucose 170 H Hemoglobin A1c Calcium 7.9 L Magnesium 2.3 Total Bilirubin 0.70 Direct Bilirubin 0.38 H AST 102 H ALT 52 Alkaline Phosphatase 116 Troponin I 0.229 H Total Protein 7.2 Albumin 2.5 L Globulin 4.7 H Triglycerides 203 H Cholesterol 135 LDL Cholesterol 68 VLDL Cholesterol 41 H HDL Cholesterol 26 L POC Glucose 08/19/18 08/19/18 08/20/18 05:51 08:38 04:05 WBC 6.4 6.4 RBC 3.78 L 3.59 L Hgb 12.4 L 11.9 L Hct 37.4 L 35.4 L MCV 98.9 H 98.6 H MCH 32.8 H 33.1 H MCHC 33.2 33.6 RDW 14.0 13.5 RDW Differential 49.3 H 47.0 H Plt Count 127 L 128 L MPV 11.6 11.8 Sodium Potassium Chloride Carbon Dioxide Anion Gap BUN Creatinine Estim Creat Clear Calc Est GFR (MDRD) Af Amer Est GFR (MDRD) Non-Af BUN/Creatinine Ratio Glucose Hemoglobin A1c Calcium Magnesium Total Bilirubin Direct Bilirubin AST ALT Alkaline Phosphatase Troponin I Total Protein Albumin Globulin Triglycerides Cholesterol LDL Cholesterol VLDL Cholesterol HDL Cholesterol POC Glucose 169 H 08/20/18 04:05 WBC RBC Hgb Hct MCV MCH MCHC RDW RDW Differential Plt Count MPV Sodium 144 Potassium 4.4 Chloride 107 Carbon Dioxide 30.0 Anion Gap 7 BUN 19 H Creatinine 0.51 L Estim Creat Clear Calc 200.96 Est GFR (MDRD) Af Amer 227 Est GFR (MDRD) Non-Af 187 BUN/Creatinine Ratio 37.0 H Glucose 140 H Hemoglobin A1c Calcium 8.2 L Magnesium Total Bilirubin Direct Bilirubin AST ALT Alkaline Phosphatase Troponin I Total Protein Albumin Globulin Triglycerides Cholesterol LDL Cholesterol VLDL Cholesterol HDL Cholesterol POC Glucose Microbiology 08/17/18 23:10 Sputum, Induced/Lukens Gram Stain - Final 08/17/18 23:10 Sputum, Induced/Lukens Respiratory Culture - Preliminary Appears to be normal respiratory tico. Further studies to follow. 08/17/18 15:50 Urine Catheter - Catheter Urine Culture - Preliminary Culture exhibits no growth. 08/18/18 07:35 Mucosa - Nasopharyngeal Respiratory Panel (PCR) - Final Clinical Impression(s) from Imaging Studies Chest X-Ray 08/17/18 13:58 IMPRESSION: Low lung volumes. Grossly clear lungs. Electronically Signed: Patrice Roth, at 14:26 EST Tel , Service support , Chest CTA 08/17/18 14:07 IMPRESSION: No large central pulmonary embolism. Extensive multi focal lung disease. Leading differential considerations are infectious disease and pulmonary edema. N.B. : The above information has been verbally conveyed by Pillo Streeter MD to MORENA Wheleer, on 08/17/2018 15:49:36 (ET). Electronically Signed: Pillo Streeter MD at 14:54 EST Tel , Service support , ADDENDUM: 08/17/18 1607 Chest X-Ray 08/17/18 14:55 IMPRESSION: The endotracheal tube is high and should be advanced at least 6 cm. The tube is now nearly 11 cm above the sameera and above the clavicles. Consider edema and/or diffuse atypical infiltrates. N.B. : The above information has been verbally conveyed by Indiana Flores MD to DR ANA MATOS MD, on 08/17/2018 15:54:30 (ET). Electronically Signed: Indiana Flores MD at 15:43 EST Tel , Service support , KUB X-Ray 08/17/18 17:24 IMPRESSION: Tip of orogastric tube projected over the duodenal bulb. Electronically Signed: Bart Cervantes MD at 20:14 EST , Service support , Medical Necessity - Tobacco Use Smoking Status: Former smoker Assessment/Plan All Active Problems Hypertensive emergency (Acute) Flash pulmonary edema (Acute) S/P inguinal hernia repair (Acute) Thrombocytopenia (Acute) Chest pain (Acute) Elevated CPK (Acute) RECOMMENDATIONS: 1. Continue to wean supplemental oxygen to maintain saturations at or above 90%. 2. Encourage incentive spirometer use and mobilize patient as tolerated. 3. Okay to discontinue antibiotics from my perspective. Bacterial infectious workup has been unrevealing. 4. Blood pressure control per cardiology recommendations. IMPRESSIONS: 1. Acute hypoxemic respiratory failure with concern for flash pulmonary edema The patient initially presented to the hospital with hypertensive emergency and what appeared to be flash pulmonary edema, necessitating emergent intubation. The patient's hemodynamics subsequently improved and he was able to be liberated from mechanical ventilation on August 19. In addition to the aforementioned, the patient does appear to have a rhinovirus URI as well. Bacterial infectious workup has been negative to date. Therefore, antibiotics can be discontinued from my perspective. Would plan to continue to wean supplemental oxygen to maintain saturations at or above 90%. Encourage aggressive incentive spirometer use and mobilize patient as tolerated. Surface echocardiogram was largely unremarkable. 2. Hypertensive emergency Resolved. The patient's hemodynamics have stabilized since his initial admission. He is no longer requiring a nitro infusion. Continue antihypertensive regimen per cardiology recommendations. 3. Troponin elevation Likely secondary to demand ischemia in the setting of the above. However, cardiology is following so will defer management to them accordingly. Surface echocardiogram revealed no wall motion abnormalities and normal ejection fraction. 4. Morbid obesity/hypertension/hyperlipidemia/diabetes Complicates care, management, recovery and prognosis. Continue Accu-Cheks and sliding scale insulin coverage. This note was generated with [employer] dictation software. It may contain incorrect words, spelling, and punctuation that were not noted in checking the note before signing. DISPOSITION: The patient is medically stable for transfer out of the intensive care unit. Code Visit Inpatient E&M: 83957 Subs Hosp L3
--- NOTE | 2018-08-20 07:19 | PCM.PN.HOSP ---
Patient Problems: Active and Suspected Problems Hypertensive emergency (Acute) Flash pulmonary edema (Acute) S/P inguinal hernia repair (Acute) Subjective: Patient seen still remains ill looking described his breathing as being raspy Objective: GENERAL: cooperative HEENT: Atraumatic; moist oral mucosa EYES; Anicteric, Normal Conjunctiva NECK; supple, normal thyroid, no distended JVD. RESPIRATORY: Diminished to auscultation bilaterally, CARDIOVASCULAR: Regular S1 S2, no audible murmurs GI: soft, non-tender, normoactive bowel sounds, : No Renal angle tenderness; EXTREMITIES: No edema, no clubbing, no cyanosis. MUSCULOSKELETAL: No Joint Tenderness; NEURO: Awake; no lateralizing signs. SKIN: No Rash PSYCH; Normal affect Vitals/I&O's: Vital Signs Temp Pulse Resp BP Pulse Ox 99.0 F 90 18 158/80 H 93 08/20/18 04:00 08/20/18 06:00 08/20/18 06:00 08/20/18 06:00 08/20/18 06:48 Oxygen Flow Rate (L/min) 3 Oxygen Delivery Method Nasal Cannula Weight: 141.2 kg Body Mass Index (BMI) 43.4 Finger Stick Blood Glucose 174 Intake and Output for Last 24 Hours 08/18/18 08/19/18 08/20/18 23:59 23:59 23:59 Intake Total 1209 / 1209 1352 / 1352 200 / 200 Output Total 1300 / 1300 4050 / 4050 300 / 300 Balance -91 / -91 -2698 / -2698 -100 / -100 Microbiology Past 72 Hours 08/17/18 23:10 Sputum, Induced/Lukens Gram Stain - Final 08/17/18 23:10 Sputum, Induced/Lukens Respiratory Culture - Preliminary Appears to be normal respiratory tico. Further studies to follow. 08/17/18 15:50 Urine Catheter - Catheter Urine Culture - Preliminary Culture exhibits no growth. 08/18/18 07:35 Mucosa - Nasopharyngeal Respiratory Panel (PCR) - Final 08/17/18 17:30 Urine Catheter - Catheter Legionella Antigen - Final 08/17/18 17:30 Urine Catheter - Catheter Streptococcus pneumoniae Antigen (M - Final Laboratory Results 08/19/18 05:10: Sodium 140, Potassium 4.5, Chloride 107, Carbon Dioxide 24.0, Anion Gap 9, BUN 33 H, Creatinine 0.84, Estim Creat Clear Calc 122.01, Est GFR (MDRD) Af Amer 130, Est GFR (MDRD) Non-Af 107, BUN/Creatinine Ratio 39.5 H, Glucose 170 H, Calcium 7.9 L, Magnesium 2.3 08/19/18 05:10: Total Bilirubin 0.70, Direct Bilirubin 0.38 H, AST 102 H, ALT 52, Alkaline Phosphatase 116, Total Protein 7.2, Albumin 2.5 L, Globulin 4.7 H, Triglycerides 203 H, Cholesterol 135, LDL Cholesterol 68, VLDL Cholesterol 41 H, HDL Cholesterol 26 L 08/19/18 08:38: WBC 6.4, RBC 3.78 L, Hgb 12.4 L, Hct 37.4 L, MCV 98.9 H, MCH 32.8 H, MCHC 33.2, RDW 14.0, RDW Differential 49.3 H, Plt Count 127 L, MPV 11.6 08/20/18 04:05: WBC 6.4, RBC 3.59 L, Hgb 11.9 L, Hct 35.4 L, MCV 98.6 H, MCH 33.1 H, MCHC 33.6, RDW 13.5, RDW Differential 47.0 H, Plt Count 128 L, MPV 11.8 08/20/18 04:05: Sodium 144, Potassium 4.4, Chloride 107, Carbon Dioxide 30.0, Anion Gap 7, BUN 19 H, Creatinine 0.51 L, Estim Creat Clear Calc 200.96, Est GFR (MDRD) Af Amer 227, Est GFR (MDRD) Non-Af 187, BUN/Creatinine Ratio 37.0 H, Glucose 140 H, Calcium 8.2 L Current Medications Acetaminophen (Tylenol) 650 mg PO Q4H PRN PRN PRN Reason: Fever >101 Albuterol Sulfate (Ventolin Aerosols) 2.5 mg INHALATION Q2H PRN PRN PRN Reason: SHORTNESS OF BREATH Aspirin (Aspirin, Baby) 81 mg PO DAILY@0800 [facility] Last Admin: 08/19/18 10:51 Dose: 81 mg Atorvastatin Calcium (Lipitor) 20 mg PO QHS [facility] Last Admin: 08/19/18 21:04 Dose: 20 mg Calamine/Phenol (Calmoseptine Ointment) 1 applic TOPICAL TID [facility]; Protocol Last Admin: 08/19/18 21:03 Dose: 1 applicatio Chlorhexidine Gluconate () 1 each TOPICAL DAILY [facility] Last Admin: 08/19/18 01:18 Dose: 1 each Enoxaparin Sodium (Lovenox) 40 mg SC DAILY@1000 [facility] Last Admin: 08/19/18 10:51 Dose: 40 mg Sodium Chloride () 250 mls @ 15 mls/hr IV .[id number] PRN PRN Reason: SALINE FLUSH Last Admin: 08/17/18 19:36 Dose: 15 mls/hr Lisinopril (Zestril) 10 mg PO BID [facility] Last Admin: 08/19/18 21:04 Dose: 10 mg Magnesium Hydroxide (Milk Of Magnesia) 30 ml PO DAILY PRN PRN PRN Reason: Constipation Metoprolol Tartrate (Lopressor (Beta Brandi)) 25 mg PO BID [facility] Last Admin: 08/19/18 21:05 Dose: 25 mg Sodium Chloride () 5 - 15 ml IV UD PRN PRN Reason: SALINE FLUSH Last Admin: 08/19/18 13:41 Dose: 10 ml Medical Necessity - Tobacco Use Smoking Status: Former smoker Assessment/Plan All Active Problems Hypertensive emergency (Acute) Flash pulmonary edema (Acute) S/P inguinal hernia repair (Acute) Thrombocytopenia (Acute) Chest pain (Acute) Elevated CPK (Acute) Patient is a 43-year-old gentleman who underwent inguinal hernia repair on 08/14/2018 presented to the emergency department on 08/17/2018 with progressive shortness of breath and assessment of acute hypertensive crisis with flash pulmonary edema made patient admitted to the intensive care unit for subsequent management. 1. Acute hypoxic respiratory failure secondary to come the [place] of flash pulmonary edema and suspected pneumonia; patient was emergently intubated in the ED upon arrival weaned off the vent on the morning of 08/18/2018 patient still remains dyspneic at rest plan is to encourage pulmonary toileting 2. Acute flash pulmonary edema possibly diastolic dysfunction from patient markedly elevated blood pressure on admission. Patient managed on Lasix 2D echo ordered for EF assessment; 2D echo demonstrated ejection of 70% consistent with acute diastolic dysfunction 3. Suspected community-acquired pneumonia: Respiratory panel was only positive for rhinovirus patient remains on Zithromax as well as Rocephin 4. Acute hypertensive crisis: Patient systolic blood pressure on admission was greater than 200 patient blood pressure has since improved 5. Elevated troponin secondary to type II non-ST IA from demand ischemia is discussed with Dr. Weldon patient may need to undergo left heart catheterization or to his discharge 6. Diabetes mellitus type II: patient's oral hypoglycemics held. Placed on long acting insulin, Accu-Cheks a.c. and at bedtime and covered with sliding scale insulin 7. Morbid obesity with BMI of 43.6 8. Status post left inguinal hernia repair on 08/14/[address] Avitia 9. DVT prophylaxis SC Lovenox Code Visit Inpatient E&M: 03283 Subs Hosp L3
--- NOTE | 2018-08-20 09:09 | PN.CARD_ITS ---
Subjectve: Patient is awake and alert. He has had no symptoms of ongoing acute chest discomfort. He notes his breathing has improved overall. Objective: Vital Signs Temp Pulse Resp BP Pulse Ox 97.9 F 91 25 H 148/69 H 94 08/20/18 07:58 08/20/18 07:58 08/20/18 07:58 08/20/18 07:58 08/20/18 07:58 Oxygen Flow Rate (L/min) 3 Oxygen Delivery Method Nasal Cannula Weight: 311 lb 4.683 oz Body Mass Index (BMI) 43.4 Finger Stick Blood Glucose 174 Intake and Output for Last 24 Hours 08/18/18 08/19/18 08/20/18 23:59 23:59 23:59 Intake Total 1209 / 1209 1352 / 1352 200 / 200 Output Total 1300 / 1300 4050 / 4050 300 / 300 Balance -91 / -91 -2698 / -2698 -100 / -100 General: Awake, Alert, Oriented x 3, Cooperative, No Acute Distress, Obese HEENT: Atraumatic, Normocephalic, PERRL, EOMI, Sclera Non Icteric Oral: Moist Mucosa Neck: Supple, Good ROM, No JVD Lungs: Clear to auscultation, - Cardiovascular: Regular Rhythm, Normal S1, Normal S2 Abdomen: Bowel Sounds Present, Soft, Non Tender Extremities: Trace RLE Edema, Trace LLE Edema Neurological: No Focal Motor or Sensory Deficit Psych/Mental Status: Appropriate 08/19/18 05:10: Total Bilirubin 0.70, Direct Bilirubin 0.38 H, Triglycerides 203 H, Cholesterol 135, LDL Cholesterol 68, VLDL Cholesterol 41 H, HDL Cholesterol 26 L 08/20/18 04:05: WBC 6.4, RBC 3.59 L, Hgb 11.9 L, Hct 35.4 L, MCV 98.6 H, MCH 33.1 H, MCHC 33.6, RDW 13.5, RDW Differential 47.0 H, Plt Count 128 L, MPV 11.8 08/20/18 04:05: Sodium 144, Potassium 4.4, Chloride 107, Carbon Dioxide 30.0, Anion Gap 7, BUN 19 H, Creatinine 0.51 L, Est GFR (MDRD) Af Amer 227, Est GFR (MDRD) Non-Af 187, BUN/Creatinine Ratio 37.0 H, Glucose 140 H, Calcium 8.2 L Rhythm: Sinus rhythm EKG: Sinus rhythm; no acute ECG changes Medical Necessity - Tobacco Use Smoking Status: Former smoker Assessment/Plan 1. Hypertensive emergency The patient presented with a systolic blood pressure in excess of 200 mmHg. This was associated with concerns of pulmonary edema and hypoxia. Status post improving his blood pressure and volume status his pulmonary status has improved and he is now extubated. He will need to continue medical adjustment as deemed appropriate to maintain adequate blood pressure control. This may include increasing his KIMO inhibitor therapy as well as additional antihypertensive therapy agents as needed 2. Flash pulmonary edema The patient presents with a scenario compatible with underlying flash pulmonary edema possibly secondary to his marked hypertension. At the present time his initial cardiac enzymes are negative. His initial ECG demonstrates no acute ECG changes. His chest CT scan was reported by radiology as demonstrating no definitive pulmonary embolus, however, it appears that this was a diminished quality chest CT scan. Cardiac enzymes have been followed. They have been indeterminate. This may be secondary to his hypertensive event. He will continue medical therapy for concerns of his hypertension and the possibility of underlying cardiovascular disease based upon his risk factors. Include further evaluation with diagnostic cardiac catheterization which may or may not lead to the need for revascularization therapy. 3. Hyperlipidemia He will continue medical management as deemed appropriate. 4. Diabetes mellitus He will continue under the care of internal medicine for this. 5. Obesity The patient is unfortunately overweight/obese. This does make it challenging with respect to performing and interpreting diagnostic imaging studies, etc. Hopefully, as the patient recuperates from his event, in the future, he can bring his weight under better control. 6. Status post right inguinal hernia repair He can be further evaluated by internal medicine and/or general surgery as deemed appropriate for this. Comment: The patient's case has been discussed and reviewed with the patient and Dr. Wang of the [facility] ICU staff. Dr. Wang has no contraindication to proceeding with diagnostic cardiac catheterization and PCI, if needed, at this time. Thus, the cardiac catheterization procedure was discussed with the patient with respect to the risks and benefits. The patient was agreeable to proceeding with further cardiac evaluation and care with cardiac catheterization. This note was generated using a voice recognition system and there may be incorrect words, spelling or punctuation that were not noted when reviewing the office note prior to saving.
--- NOTE | 2018-08-20 09:12 | CASEMGMT ---
Insurance Review for In-Network Facilities for [place] [employer] insurance if transfer to tertiary hospital is recommended: [facility] Diana BSN RN CM
[2018-08-20] MEDS: Lisinopril 10 MG Tablet PO (10:15)
[2018-08-20] MEDS: Aspirin 81 MG TAB.CHEW PO (10:15)
[2018-08-20] MEDS: TICAGRELOR 90 MG TABLET 180 MG PO (10:16)
[2018-08-20] MEDS: Metoprolol Tartrate 25 MG Tablet PO ×2 (10:16→21:31)
[2018-08-20] MEDS: CHLORHEXIDINE GLUC 2% CLOTH 1 EACH TOWELETTE TOPICAL (11:04)
[2018-08-20] MEDS: 0.9% Normal Saline 1,000 ML 15 ML IV (11:05)
--- NOTE | 2018-08-20 11:38 | NURSING ---
patient & family instructed on heart cath procedure voiced understanding, prep was completed ,consent signed by patient & mother
--- NOTE | 2018-08-20 13:55 | CL.D_ITS ---
Patient Name: EDD DUPONT Study Date: 08/20/2018 Performing: Jeffrey Weldon MD Ht: 71 inches 180 cm : 1975 Wt: 311.3 lbs 141 kg Age: 43 Gender: male BSA: 2.54 PROCEDURE(S) PERFORMED [id number] CLINICAL PROFILE AND INDICATIONS Indications: Suspected CAD Heart Failure: NYHA Class: 4, Newly Diagnosed: Yes, Heart Failure Type: Diastolic Stress/Imaging Stress/Image Study Performed: No Angina Classification Anginal Classification w/in 2 Weeks: No symptoms CAD Presentations: Other: HTN Emergency / Flash Pulmonary Edema / CHF CONCLUSIONS Normal coronary arteries RECOMMENDATIONS Risk factor modification Medical therapy DESCRIPTION OF PROCEDURE The patient arrived to the procedure lab. The risks and benefits of the procedure as well as a full d escription of our services here and current unavailability of surgical backup were fully explained to the patient and/or their significant other prior to the catheterization. The Timeout was completed, verifying the correct patient and procedure. The patient's procedural site was prepped and draped in the usual fashion. Local anesthetic was given subcutaneously to right radial region with Lidocaine 2% . Local anesthetic was given subcutaneously to right groin region with Lidocaine 2%. Using a modified Seldinger technique, arterial access was obtained via the right radial artery, a 6Fr sheath was inse rted., arterial access was obtained via the right femoral artery, a 4Fr sheath was inserted Right Co ronary Artery selective angiography was then performed in multiple views using a 5 Fr. 4.0 [place] cath eter. Left Coronary Artery selective angiography was performed in multiple views using a 4 Fr. JL4 catheter.The arterial sheath was pulled and a TR Band was applied for hemostasis. The arteria l sheath was pulled and manual compression applied until hemostasis is achieved. CORONARY ANGIOGRAPHY DOMINANCE: Right Dominant LEFT HEART ASSESSMENT Left Ventricular Ejection Fraction: Not assessed LEFT MAIN: Angiographically normal LEFT ANTERIOR DECENDING ARTERY: Angiographically normal CIRCUMFLEX ARTERY: Angiographically normal RIGHT CORONARY ARTERY: Angiographically normal COMPLICATIONS No Complications PROCEDURE MEDICATIONS Fentanyl 50 mcg IV Versed 1 mg IV Fentanyl 50 mcg IV Versed 1 mg IV Oxygen: 3 L/min via nasal cannula SUMMARY OF HEMODYNAMIC DATA Time AIR REST ECG 12:10:20 AO 148/68 (105) SA 12:41:29 Signed By Jeffrey Weldon MD On 08/20/2018 13:54:35 Jeffrey Weldon MD
--- NOTE | 2018-08-20 17:16 | NURSING ---
report called to pcu transferred per bed with belongings, mother notified of new room number
[2018-08-20] MEDS: Lisinopril 20 MG Tablet PO (21:31)
[2018-08-20] MEDS: Atorvastatin Calcium 20 MG Tablet PO (21:31)
[2018-08-20] MEDS: Menthol/Lanolin/Calamine/Znox 113 GM Tube 1 APPLIC TOPICAL (21:32)
[2018-08-21] VITALS (7 sets, daily range): BP systolic 125–134; BP diastolic 59–65; PULSE 65–81; RESP 16–18; TEMP 36.1–36.4; O2SAT 90–98
[2018-08-21] MEDS: Menthol/Lanolin/Calamine/Znox 113 GM Tube 1 APPLIC TOPICAL (05:29)
[2018-08-21 06:06] LABS: Hematocrit 35.3 % (40-54); Hemoglobin 11.6 g/dl (13.0-16.5); Mean Corp Hgb Conc 32.9 g/gl (32-36); Mean Corpuscular Hgb 32.9 pg (27.0-32.0); Mean Platelet Vol. 11.4 fl (6.2-12.0); Platelet Count 149 K/mm3 (150-450); RBC Distribution Width CV 13.5 % (11.6-14.6); Red Blood Count 3.53 M/mm3 (4.6-6.2); White Blood Count 5.8 K/mm3 (4.4-11.0)
[2018-08-21 06:11] LABS: Scan Indicated on CBC? Y/N NO
[2018-08-21 06:24] LABS: BUN 25 mg/dL (7-18); Creatinine, Serum 0.65 mg/dL (0.70-1.30); Glucose 158 mg/dL (74-106)
[2018-08-21 06:25] LABS: Anion Gap 4 (5-15); BUN/Creat Ratio 38.7 RATIO (10-20); Calcium,Total 8.3 mg/dL (8.5-10.1); Chloride 110 mmol/L (98-107); EST Glomerular Filtration Rate 144 mL/min (>60); Est Glom Filt Rate - Afr Amer 174 mL/min (>60); Estimated Creatinine Clearance 157.68 ml/min; Potassium 4.4 mmol/L (3.5-5.1); Sodium Level 145 mmol/L (136-145)
[2018-08-21] MEDS: Acetaminophen 325 MG Tablet 650 MG PO (08:06)
[2018-08-21] MEDS: Enoxaparin 40 MG/0.4 ML Syringe SC (09:30)
[2018-08-21] MEDS: Lisinopril 20 MG Tablet PO (09:30)
[2018-08-21] MEDS: Aspirin 81 MG TAB.CHEW PO (09:30)
[2018-08-21] MEDS: Metoprolol Tartrate 25 MG Tablet PO (09:30)
--- NOTE | 2018-08-21 09:33 | PCM.PROGNOTE ---
Patient Problems: Active and Suspected Problems Hypertensive emergency (Acute) Flash pulmonary edema (Acute) S/P inguinal hernia repair (Acute) Subjective: The patient was seen and examined at the bedside this morning. Events from the last 24 hours have been reviewed. The patient is currently afebrile, hemodynamically stable and maintaining appropriate oxygen saturations on room air. The patient is done well clinically following his transfer out of the ICU yesterday. The patient did undergo a left heart catheterization yesterday, which revealed normal coronary arteries. Objective: The patient's most recent lab work, culture data and imaging studies have all been personally reviewed. Respiratory viral panel was positive for rhinovirus. Sputum Gram stain revealed 2+ white blood cells without organisms seen. Strep and urine Legionella antigens were both negative. Blood and urine cultures are pending. A CTA chest was obtained which revealed limited enhancement of the bilateral peripheral pulmonary arteries. Bilateral groundglass opacities were noted, along with incidental finding of splenomegaly, splenic varices and paraesophageal varices. - Physical Exam General: Alert, Cooperative, No apparent distress HEENT: Atraumatic, PERRLA, Normocephalic Oral: No Gingival or Mucosal Lesions/ Ulcerations, - - Poor generalized dentition Neck: Supple, No Nodes, Trachea Midline Lungs: No rhonchi, No wheeze, No rales, Diminished Cardiovascular: Regular rate, Regular Rhythm, Normal S1, Normal S2, No murmurs Abdomen: Bowel Sounds Present, Soft, Non Tender, Obese Extremities: No clubbing, No cyanosis, No edema Skin: No breakdown Musculoskeletal: No Tenderness to Palpation of Joints or Extremities, No Muscle Wasting Lymphatic: No Cervical, Supraclavicular, or Inguinal Adenopathy Neurological: Cranial nerves II-XII grossly intact, Neuro grossly intact Psych/Mental Status: Normal Affect, Appropriate Vital Signs Temp Pulse Resp BP Pulse Ox 36.1 C L 76 18 134/65 H 98 08/21/18 09:30 08/21/18 09:30 08/21/18 09:30 08/21/18 09:30 08/21/18 09:30 Oxygen Flow Rate (L/min) 3 Oxygen Delivery Method Room Air Weight: 311 lb 11.738 oz Body Mass Index (BMI) 43.4 Finger Stick Blood Glucose 174 Intake and Output for Last 24 Hours 08/19/18 08/20/18 08/21/18 23:59 23:59 23:59 Intake Total 1352 / 1352 1097 / 1097 120 / 120 Output Total 4050 / 4050 600 / 600 200 / 200 Balance -2698 / -2698 497 / 497 -80 / -80 Microbiology Past 72 Hours 08/17/18 15:48 Blood Culture - Preliminary Blood Culture (Wb) - Anticubital Left No growth in 48 hours. 08/17/18 15:45 Blood Culture - Preliminary Blood Culture (Wb) - Anticubital Right No growth in 48 hours. 08/17/18 23:10 Gram Stain - Final Sputum, Induced/Lukens Respiratory Culture - Final Mixed normal respiratory tico. No Haemophilus, Streptococcus pneumoniae, beta-hemolytic Streptococcus or Staphylococcus aureus isolated. 08/17/18 15:50 Urine Culture - Final Urine Catheter - Catheter Culture exhibits no growth. 08/18/18 07:35 Respiratory Panel (PCR) - Final Mucosa - Nasopharyngeal Laboratory Tests Past 24 Hrs 08/21/18 08/21/18 05:50 05:50 WBC 5.8 RBC 3.53 L Hgb 11.6 L Hct 35.3 L MCV 100.0 H MCH 32.9 H MCHC 32.9 RDW 13.5 RDW Differential 48.0 H Plt Count 149 L MPV 11.4 Sodium 145 Potassium 4.4 Chloride 110 H Carbon Dioxide 31.0 Anion Gap 4 L BUN 25 H Creatinine 0.65 L Estim Creat Clear Calc 157.68 Est GFR (MDRD) Af Amer 174 Est GFR (MDRD) Non-Af 144 BUN/Creatinine Ratio 38.7 H Glucose 158 H Calcium 8.3 L Clinical Impression(s) from Imaging Studies Chest X-Ray 08/17/18 13:58 IMPRESSION: Low lung volumes. Grossly clear lungs. Electronically Signed: Patrice Roth, at 14:26 EST Tel , Service support , Chest CTA 08/17/18 14:07 IMPRESSION: No large central pulmonary embolism. Extensive multi focal lung disease. Leading differential considerations are infectious disease and pulmonary edema. N.B. : The above information has been verbally conveyed by Pillo Streeter MD to MORENA Wheeler, on 08/17/2018 15:49:36 (ET). Electronically Signed: Pillo Streeter MD at 14:54 EST Tel , Service support , ADDENDUM: 08/17/18 1607 Chest X-Ray 08/17/18 14:55 IMPRESSION: The endotracheal tube is high and should be advanced at least 6 cm. The tube is now nearly 11 cm above the sameera and above the clavicles. Consider edema and/or diffuse atypical infiltrates. N.B. : The above information has been verbally conveyed by Indiana Flores MD to DR ANA MATOS MD, on 08/17/2018 15:54:30 (ET). Electronically Signed: Indiana Flores MD at 15:43 EST Tel , Service support , KUB X-Ray 08/17/18 17:24 IMPRESSION: Tip of orogastric tube projected over the duodenal bulb. Electronically Signed: Bart Cervantes MD at 20:14 EST , Service support , Medical Necessity - Tobacco Use Smoking Status: Former smoker Assessment/Plan All Active Problems Hypertensive emergency (Acute) Flash pulmonary edema (Acute) S/P inguinal hernia repair (Acute) Thrombocytopenia (Acute) Chest pain (Acute) Elevated CPK (Acute) RECOMMENDATIONS: 1. Continue to encourage incentive spirometer utilization and mobilize patient as tolerated. 2. Blood pressure control per cardiology recommendations. 3. Awaiting physical therapy reevaluation today, as additional therapy may be indicated beyond this hospitalization. IMPRESSIONS: 1. Acute hypoxemic respiratory failure with concern for flash pulmonary edema The patient initially presented to the hospital with hypertensive emergency and what appeared to be flash pulmonary edema, necessitating emergent intubation. The patient's hemodynamics subsequently improved and he was able to be liberated from mechanical ventilation on August 19. In addition to the aforementioned, the patient does appear to have a rhinovirus URI as well. Bacterial infectious workup has been negative to date. The patient has since been weaned to room air. He is doing well from a respiratory perspective. Would continue to encourage incentive spirometer use and mobilize patient as tolerated. Cardiac workup, including cardiac catheterization was negative. 2. Hypertensive emergency Resolved. The patient's hemodynamics have stabilized since his initial admission. He is no longer requiring a nitro infusion. Continue antihypertensive regimen per cardiology recommendations. 3. Troponin elevation Likely secondary to demand ischemia in the setting of the above. Subsequent echocardiogram and cardiac catheterization were unremarkable. 4. Morbid obesity/hypertension/hyperlipidemia/diabetes Complicates care, management, recovery and prognosis. Continue Accu-Cheks and sliding scale insulin coverage. This note was generated with [employer] dictation software. It may contain incorrect words, spelling, and punctuation that were not noted in checking the note before signing. DISPOSITION: Given the lack of further ICU/pulmonary needs, will sign off. Please call with any additional questions. Code Visit Inpatient E&M: 80317 Subs Hosp L2
--- NOTE | 2018-08-21 09:39 | PN_ITS ---
Patient Problems: Active and Suspected Problems Hypertensive emergency (Acute) Flash pulmonary edema (Acute) S/P inguinal hernia repair (Acute) Subjective: The patient was seen and examined at the bedside this morning. Events from the last 24 hours have been reviewed. The patient is currently afebrile, hemodynamically stable and maintaining appropriate oxygen saturations on room air. The patient is done well clinically following his transfer out of the ICU yesterday. The patient did undergo a left heart catheterization yesterday, which revealed normal coronary arteries. Objective: The patient's most recent lab work, culture data and imaging studies have all been personally reviewed. Respiratory viral panel was positive for rhinovirus. Sputum Gram stain revealed 2+ white blood cells without organisms seen. Strep and urine Legionella antigens were both negative. Blood and urine cultures are pending. A CTA chest was obtained which revealed limited enhancement of the bilateral peripheral pulmonary arteries. Bilateral groundglass opacities were noted, along with incidental finding of splenomegaly, splenic varices and paraesophageal varices. - Physical Exam General: Alert, Cooperative, No apparent distress HEENT: Atraumatic, PERRLA, Normocephalic Oral: No Gingival or Mucosal Lesions/ Ulcerations, - - Poor generalized dentition Neck: Supple, No Nodes, Trachea Midline Lungs: No rhonchi, No wheeze, No rales, Diminished Cardiovascular: Regular rate, Regular Rhythm, Normal S1, Normal S2, No murmurs Abdomen: Bowel Sounds Present, Soft, Non Tender, Obese Extremities: No clubbing, No cyanosis, No edema Skin: No breakdown Musculoskeletal: No Tenderness to Palpation of Joints or Extremities, No Muscle Wasting Lymphatic: No Cervical, Supraclavicular, or Inguinal Adenopathy Neurological: Cranial nerves II-XII grossly intact, Neuro grossly intact Psych/Mental Status: Normal Affect, Appropriate Vital Signs Temp Pulse Resp BP Pulse Ox 36.1 C L 76 18 134/65 H 98 08/21/18 09:30 08/21/18 09:30 08/21/18 09:30 08/21/18 09:30 08/21/18 09:30 Oxygen Flow Rate (L/min) 3 Oxygen Delivery Method Room Air Weight: 311 lb 11.738 oz Body Mass Index (BMI) 43.4 Finger Stick Blood Glucose 174 Intake and Output for Last 24 Hours 08/19/18 08/20/18 08/21/18 23:59 23:59 23:59 Intake Total 1352 / 1352 1097 / 1097 120 / 120 Output Total 4050 / 4050 600 / 600 200 / 200 Balance -2698 / -2698 497 / 497 -80 / -80 Microbiology Past 72 Hours 08/17/18 15:48 Blood Culture - Preliminary Blood Culture (Wb) - Anticubital Left No growth in 48 hours. 08/17/18 15:45 Blood Culture - Preliminary Blood Culture (Wb) - Anticubital Right No growth in 48 hours. 08/17/18 23:10 Gram Stain - Final Sputum, Induced/Lukens Respiratory Culture - Final Mixed normal respiratory tico. No Haemophilus, Streptococcus pneumoniae, beta-hemolytic Streptococcus or Staphylococcus aureus isolated. 08/17/18 15:50 Urine Culture - Final Urine Catheter - Catheter Culture exhibits no growth. 08/18/18 07:35 Respiratory Panel (PCR) - Final Mucosa - Nasopharyngeal Laboratory Tests Past 24 Hrs 08/21/18 08/21/18 05:50 05:50 WBC 5.8 RBC 3.53 L Hgb 11.6 L Hct 35.3 L MCV 100.0 H MCH 32.9 H MCHC 32.9 RDW 13.5 RDW Differential 48.0 H Plt Count 149 L MPV 11.4 Sodium 145 Potassium 4.4 Chloride 110 H Carbon Dioxide 31.0 Anion Gap 4 L BUN 25 H Creatinine 0.65 L Estim Creat Clear Calc 157.68 Est GFR (MDRD) Af Amer 174 Est GFR (MDRD) Non-Af 144 BUN/Creatinine Ratio 38.7 H Glucose 158 H Calcium 8.3 L Clinical Impression(s) from Imaging Studies Chest X-Ray 08/17/18 13:58 IMPRESSION: Low lung volumes. Grossly clear lungs. Electronically Signed: Patrice Roth, at 14:26 EST Tel , Service support , Chest CTA 08/17/18 14:07 IMPRESSION: No large central pulmonary embolism. Extensive multi focal lung disease. Leading differential considerations are infectious disease and pulmonary edema. N.B. : The above information has been verbally conveyed by Pillo Streeter MD to MORENA Wheeler, on 08/17/2018 15:49:36 (ET). Electronically Signed: Pillo Streeter MD at 14:54 EST Tel , Service support , ADDENDUM: 08/17/18 1607 Chest X-Ray 08/17/18 14:55 IMPRESSION: The endotracheal tube is high and should be advanced at least 6 cm. The tube is now nearly 11 cm above the sameera and above the clavicles. Consider edema and/or diffuse atypical infiltrates. N.B. : The above information has been verbally conveyed by Indiana Flores MD to DR ANA MATOS MD, on 08/17/2018 15:54:30 (ET). Electronically Signed: Indiana Flores MD at 15:43 EST Tel , Service support , KUB X-Ray 08/17/18 17:24 IMPRESSION: Tip of orogastric tube projected over the duodenal bulb. Electronically Signed: Bart Cervantes MD at 20:14 EST , Service support , Medical Necessity - Tobacco Use Smoking Status: Former smoker Assessment/Plan All Active Problems Hypertensive emergency (Acute) Flash pulmonary edema (Acute) S/P inguinal hernia repair (Acute) Thrombocytopenia (Acute) Chest pain (Acute) Elevated CPK (Acute) RECOMMENDATIONS: 1. Continue to encourage incentive spirometer utilization and mobilize patient as tolerated. 2. Blood pressure control per cardiology recommendations. 3. Awaiting physical therapy reevaluation today, as additional therapy may be indicated beyond this hospitalization. IMPRESSIONS: 1. Acute hypoxemic respiratory failure with concern for flash pulmonary edema The patient initially presented to the hospital with hypertensive emergency and what appeared to be flash pulmonary edema, necessitating emergent intubation. The patient's hemodynamics subsequently improved and he was able to be liberated from mechanical ventilation on August 19. In addition to the aforementioned, the patient does appear to have a rhinovirus URI as well. Bacterial infectious workup has been negative to date. The patient has since been weaned to room air. He is doing well from a respiratory perspective. Would continue to encourage incentive spirometer use and mobilize patient as tolerated. Cardiac workup, including cardiac catheterization was negative. 2. Hypertensive emergency Resolved. The patient's hemodynamics have stabilized since his initial admission. He is no longer requiring a nitro infusion. Continue antihypertensive regimen per cardiology recommendations. 3. Troponin elevation Likely secondary to demand ischemia in the setting of the above. Subsequent echocardiogram and cardiac catheterization were unremarkable. 4. Morbid obesity/hypertension/hyperlipidemia/diabetes Complicates care, management, recovery and prognosis. Continue Accu-Cheks and sliding scale insulin coverage. This note was generated with [employer] dictation software. It may contain incorrect words, spelling, and punctuation that were not noted in checking the note before signing. DISPOSITION: Given the lack of further ICU/pulmonary needs, will sign off. Please call with any additional questions. Code Visit Inpatient E&M: 94732 Subs Hosp L2
--- NOTE | 2018-08-21 11:23 | DCINST_ITS ---
- Discharge Diagnoses Current Active Problems: Current Active and Chronic Problems Hypertensive emergency (Acute) Flash pulmonary edema (Acute) S/P inguinal hernia repair (Acute) You will use the following diet at home:: No restrictions Discharge Activity: May not drive while taking narcotic pain medications. Allergies/Adverse Reactions: Allergies codeine Adverse Reaction (Verified 08/17/18 14:02) Other Medications to take at Discharge Acetaminophen [Tylenol] 500 - 1,000 mg PO Q6H PRN PRN 02/13/17 Atorvastatin Calcium [Lipitor] 20 mg PO QHS 02/13/17 Metformin HCl [Metformin HCl ER] 500 mg PO BID 02/13/17 Oxycodone [Oxyir] 5 mg PO Q4H PRN PRN #30 tablet 02/19/17 Aspirin [Aspirin, Baby] 81 mg PO DAILY@0800 #30 tab.chew 08/21/18 Furosemide [Lasix] 40 mg PO DAILY #30 tablet 08/21/18 Lisinopril [Zestril] 20 mg PO BID #60 tablet 08/21/18 Metoprolol Tartrate [Lopressor (beta shawn)] 25 mg PO BID #60 tablet 08/21/18 The following prescriptions were given: Aspirin [Aspirin, Baby] 81 mg PO DAILY@0800 #30 tab.chew Furosemide [Lasix] 40 mg PO DAILY #30 tablet Lisinopril [Zestril] 20 mg PO BID #60 tablet Metoprolol Tartrate [Lopressor (beta shawn)] 25 mg PO BID #60 tablet Primary Care Physician: Itz Orellana DO [Primary Care Provider] - Please follow up with your Primary Care Physician in: in 5-7 days Test Results: Test results from this visit will be discussed in further detail at your follow- up appointment, if applicable. Please Follow Up With: Ace Avitia MD When: as scheduled Proposed Discharge Date: 08/21/18
--- NOTE | 2018-08-21 11:26 | PCM.PN.CARD ---
Subjectve: The patient appears to be awake and alert. He denies any acute symptoms at this time with respect to chest discomfort or worsening shortness of breath/dyspnea. He is on room air her oxygen at this time. Objective: Vital Signs Temp Pulse Resp BP Pulse Ox 97.0 F L 76 18 134/65 H 98 08/21/18 09:30 08/21/18 09:30 08/21/18 09:30 08/21/18 09:30 08/21/18 09:30 Oxygen Flow Rate (L/min) 3 Oxygen Delivery Method Room Air Weight: 311 lb 11.738 oz Body Mass Index (BMI) 43.4 Finger Stick Blood Glucose 174 Intake and Output for Last 24 Hours 08/19/18 08/20/18 08/21/18 23:59 23:59 23:59 Intake Total 1352 / 1352 1097 / 1097 120 / 120 Output Total 4050 / 4050 600 / 600 200 / 200 Balance -2698 / -2698 497 / 497 -80 / -80 General: Awake, Alert, Oriented x 3, Cooperative, No Acute Distress HEENT: Atraumatic, Normocephalic, PERRL, EOMI, Sclera Non Icteric Oral: Moist Mucosa Neck: Supple, Good ROM, No JVD Lungs: Clear to auscultation Cardiovascular: Regular Rhythm, Normal S1, Normal S2 Vascular: Normal Femoral Pulses, Normal Radial Pulses Abdomen: Bowel Sounds Present, Soft, Non Tender Extremities: No edema Neurological: No Focal Motor or Sensory Deficit Psych/Mental Status: Appropriate 08/21/18 05:50: WBC 5.8, RBC 3.53 L, Hgb 11.6 L, Hct 35.3 L, MCV 100.0 H, MCH 32.9 H, MCHC 32.9, RDW 13.5, RDW Differential 48.0 H, Plt Count 149 L, MPV 11.4 08/21/18 05:50: Sodium 145, Potassium 4.4, Chloride 110 H, Carbon Dioxide 31.0, Anion Gap 4 L, BUN 25 H, Creatinine 0.65 L, Est GFR (MDRD) Af Amer 174, Est GFR (MDRD) Non-Af 144, BUN/Creatinine Ratio 38.7 H, Glucose 158 H, Calcium 8.3 L Rhythm: Sinus rhythm Medical Necessity - Tobacco Use Smoking Status: Former smoker Assessment/Plan 1. Hypertensive emergency The patient presented with a systolic blood pressure in excess of 200 mmHg. This was associated with concerns of pulmonary edema and hypoxia. Has undergone further evaluation and care from a cardiovascular status with noninvasive and invasive studies. At the present time his overall LV systolic function appears to be preserved and his coronary arteries demonstrate no obvious coronary artery disease. He will need to continue antihypertensive therapy as deemed appropriate. 2. Flash pulmonary edema The patient presents with a scenario compatible with underlying flash pulmonary edema possibly secondary to his marked hypertension. At the present time his initial cardiac enzymes are negative. His initial ECG demonstrates no acute ECG changes. His chest CT scan was reported by radiology as demonstrating no definitive pulmonary embolus, however, it appears that this was a diminished quality chest CT scan. Cardiac enzymes have been followed. They have been indeterminate. This may be secondary to his hypertensive event. Again he is undergone noninvasive and invasive evaluation. His findings are as noted above. At the present time it does appear there is concern that his hypertensive emergency contributed to his flash pulmonary edema. Thus he will need to continue antihypertensive therapy as deemed appropriate. 3. Hyperlipidemia He will continue medical management as deemed appropriate. 4. Diabetes mellitus He will continue under the care of internal medicine for this. 5. Obesity The patient is unfortunately overweight/obese. This does make it challenging with respect to performing and interpreting diagnostic imaging studies, etc. Hopefully, as the patient recuperates from his event, in the future, he can bring his weight under better control. 6. Status post right inguinal hernia repair He can be further evaluated by internal medicine and/or general surgery as deemed appropriate for this. All, the present time, the patient will continue medical management. It does not appear he requires further cardiac diagnostic studies and/or therapeutic intervention. Comment: The patient's case was discussed and reviewed with the patient and the [facility] staff. This note was generated using a voice recognition system and there may be incorrect words, spelling or punctuation that were not noted when reviewing the office note prior to saving.
--- NOTE | 2018-08-21 11:29 | PCM.DC.SUM ---
Discharge Date and Diagnosis - Problem List Patient Problems: Active and Suspected Problems Hypertensive emergency (Acute) Flash pulmonary edema (Acute) S/P inguinal hernia repair (Acute) Date of Admission: 08/17/18 Date of Discharge: 08/21/18 - Primary Discharge Diagnosis Active and Suspected Problems Hypertensive emergency (Acute) Flash pulmonary edema (Acute) S/P inguinal hernia repair (Acute) - Secondary Discharge Diagnosis Chronic Problems Borderline diabetes (Chronic) Hyperlipidemia (Chronic) Obesity (Chronic) Benign essential HTN (Chronic) Hospital Course and Treatment Imaging Results: Clinical Impression(s) from Imaging Studies Chest X-Ray 08/17/18 13:58 IMPRESSION: Low lung volumes. Grossly clear lungs. Electronically Signed: Patrice Gonzalez, at 14:26 EST Tel , Service support , Chest CTA 08/17/18 14:07 IMPRESSION: No large central pulmonary embolism. Extensive multi focal lung disease. Leading differential considerations are infectious disease and pulmonary edema. N.B. : The above information has been verbally conveyed by Pillo Streeter MD to MORENA Wheeler, on 08/17/2018 15:49:36 (ET). Electronically Signed: Pillo Streeter MD at 14:54 EST Tel , Service support , ADDENDUM: 08/17/18 1607 Chest X-Ray 08/17/18 14:55 IMPRESSION: The endotracheal tube is high and should be advanced at least 6 cm. The tube is now nearly 11 cm above the sameera and above the clavicles. Consider edema and/or diffuse atypical infiltrates. N.B. : The above information has been verbally conveyed by Indiana Flores MD to DR ANA MATOS MD, on 08/17/2018 15:54:30 (ET). Electronically Signed: Indiana Flores MD at 15:43 EST Tel , Service support , KUB X-Ray 12/01/18 17:24 IMPRESSION: Tip of orogastric tube projected over the duodenal bulb. Electronically Signed: Bart Cervantes MD at 20:14 EST , Service support , Operations: None Summary of Care Provided: Patient is a 43-year-old gentleman who underwent inguinal hernia repair on 08/14/2018 presented to the emergency department on 08/17/2018 with progressive shortness of breath and assessment of acute hypertensive crisis with flash pulmonary edema made patient admitted to the intensive care unit for subsequent management. 1. Acute hypoxic respiratory failure secondary to come the [place] of flash pulmonary edema and suspected pneumonia; patient was emergently intubated in the ED upon arrival weaned off the vent on the morning of 08/18/2018 patient still remains dyspneic at rest plan is to encourage pulmonary toileting 2. Acute flash pulmonary edema possibly diastolic dysfunction from patient markedly elevated blood pressure on admission. Patient managed on Lasix 2D echo ordered for EF assessment; 2D echo demonstrated ejection of 70% consistent with acute diastolic dysfunction 3. Suspected community-acquired pneumonia: Secondary to viral pneumonia. Bacterial pneumonia was ruled out 4. Acute hypertensive crisis: Patient systolic blood pressure on admission was greater than 200 patient blood pressure has since improved 5. Elevated troponin secondary to type II non-ST SD from demand ischemia is discussed with Dr. Weldon patient underwent left heart catheterization on 08/20/2018 which failed to demonstrate any obstructive lesions. 6. Diabetes mellitus type II: patient's oral hypoglycemics held. Placed on long acting insulin, Accu-Cheks a.c. and at bedtime and covered with sliding scale insulin 7. Morbid obesity with BMI of 43.6 8. Status post left inguinal hernia repair on 08/14/[address] Avitia 9. DVT prophylaxis SC Lovenox Patient Problems: Active and Suspected Problems Hypertensive emergency (Acute) Flash pulmonary edema (Acute) S/P inguinal hernia repair (Acute) - Physical Exam General: Oriented x3 HEENT: Atraumatic Neck: Supple Lungs: Diminished Cardiovascular: Regular rate, Regular Rhythm Neurological: Neuro grossly intact Psych/Mental Status: Appropriate Vital Signs Temp Pulse Resp BP Pulse Ox 97.0 F L 76 18 134/65 H 98 08/21/18 09:30 08/21/18 09:30 08/21/18 09:30 08/21/18 09:30 08/21/18 09:30 Oxygen Flow Rate (L/min) 3 Oxygen Delivery Method Room Air Weight: 141.4 kg Body Mass Index (BMI) 43.4 Finger Stick Blood Glucose 174 Intake and Output for Last 24 Hours 08/19/18 08/20/18 08/21/18 23:59 23:59 23:59 Intake Total 1352 / 1352 1097 / 1097 430 / 430 Output Total 4050 / 4050 600 / 600 500 / 500 Balance -2698 / -2698 497 / 497 -70 / -70 Microbiology Past 72 Hours 08/17/18 15:48 Blood Culture - Preliminary Blood Culture (Wb) - Anticubital Left No growth in 48 hours. 08/17/18 15:45 Blood Culture - Preliminary Blood Culture (Wb) - Anticubital Right No growth in 48 hours. 08/17/18 23:10 Gram Stain - Final Sputum, Induced/Lukens Respiratory Culture - Final Mixed normal respiratory tico. No Haemophilus, Streptococcus pneumoniae, beta-hemolytic Streptococcus or Staphylococcus aureus isolated. 08/17/18 15:50 Urine Culture - Final Urine Catheter - Catheter Culture exhibits no growth. 08/18/18 07:35 Respiratory Panel (PCR) - Final Mucosa - Nasopharyngeal Laboratory Tests Past 24 Hrs 08/21/18 08/21/18 05:50 05:50 WBC 5.8 RBC 3.53 L Hgb 11.6 L Hct 35.3 L MCV 100.0 H MCH 32.9 H MCHC 32.9 RDW 13.5 RDW Differential 48.0 H Plt Count 149 L MPV 11.4 Sodium 145 Potassium 4.4 Chloride 110 H Carbon Dioxide 31.0 Anion Gap 4 L BUN 25 H Creatinine 0.65 L Estim Creat Clear Calc 157.68 Est GFR (MDRD) Af Amer 174 Est GFR (MDRD) Non-Af 144 BUN/Creatinine Ratio 38.7 H Glucose 158 H Calcium 8.3 L Discharge Diet: 1800 Calorie Control Diet Discharge Activity: May not drive while taking narcotic pain medications. Home Medications: Medications to take at Discharge Acetaminophen [Tylenol] 500 - 1,000 mg PO Q6H PRN PRN 02/13/17 Atorvastatin Calcium [Lipitor] 20 mg PO QHS 02/13/17 Metformin HCl [Metformin HCl ER] 500 mg PO BID 02/13/17 Oxycodone [Oxyir] 5 mg PO Q4H PRN PRN #30 tablet 02/19/17 Aspirin [Aspirin, Baby] 81 mg PO DAILY@0800 #30 tab.chew 08/21/18 Furosemide [Lasix] 40 mg PO DAILY #30 tablet 08/21/18 Lisinopril [Zestril] 20 mg PO BID #60 tablet 08/21/18 Metoprolol Tartrate [Lopressor (beta shawn)] 25 mg PO BID #60 tablet 08/21/18 Following Prescrptions Were Given to Patient: Aspirin [Aspirin, Baby] 81 mg PO DAILY@0800 #30 tab.chew Furosemide [Lasix] 40 mg PO DAILY #30 tablet Lisinopril [Zestril] 20 mg PO BID #60 tablet Metoprolol Tartrate [Lopressor (beta shawn)] 25 mg PO BID #60 tablet Primary Care Physician: Itz Orellana DO [Primary Care Provider] - Please follow up with your Primary Care Physician in: in 5-7 days Please Follow Up With: Ace Avitia MD When: as scheduled Disposition: Home with Home Health Minutes spent on discharge:: 42 Patient Condition:: Stable Medical Necessity - Tobacco Use Smoking Status: Former smoker Meaningful Use Info Meaningful Use Diagnoses (Choose all that apply): CHF - CHF KIMO/ARB ordered at discharge?: Yes Documented LVEF (%): 70 Code Visit Inpatient E&M: 90944 Disch Hosp
--- NOTE | 2018-08-21 12:07 | CASEMGMT ---
Addendum entered by Cristin Driver 08/21/18 15:03: This RN CM received call back from Ayesha CM at [facility] and she is updated on all at this time, voices understanding. Carla states that pt has a f/u appt with Dr. Holman on 08/27/18 at 1140. Order for HHC placed in [facility] at this time. Grecia DURÁN CM Original Note: Therapy is recommending 'further skilled therapy' for pt at this time and Dr. Lynch also suggests same as well as states that he convinced pt to be compliant with cpap but per pt, needs new mask for cpap. This RN CM to room to speak with pt and mother. Pt/mother agree to [facility] and would like [facility] at this time. Call to Hafsa at [facility] and referral for pt at this time and she states that they should be able to take pt at this time. Pt/mother cannot remember name of DME company for cpap at this time and also can't remember who prescribed cpap initially. Mother states that DME company is in [place] but she states that she refuses to go there to get supplies for pt at this time. She also states that pt had different insurance when cpap was initially prescribed but states it has been several years since pt got it. Pt states that Dr. Tomas Holman is actually his PCP not Itz Orellana, chart updated at this time and message left with Carla Crouch, Dr. Holman's CM at this time to update on pt and clarify who wrote for cpap. Call to [facility] and they state that pt has not done anything with cpap in the last 2.5yrs and that they will need a new order, F2F and new insurance info before they can provide any new supplies and that if pt is non-compliant, insurance will most likely not pay for supplies as it is. Pt/mother updated on all at this time and voice understanding. Grecia DURÁN CM
--- NOTE | 2018-08-22 16:13 | CASEMGMT ---
Addendum entered by Cristin Driver 08/23/18 15:53: Pt's mother left a message for this RN CM to call her back to complete RN CM F/U phone call. Call placed to pt's mother at this time and she states that pt has been 'doing ok' since discharge. Mother states that pt's blood pressure has been 'good'. Mother states no questions regarding discharge instructions or medications at this time. Mother states no suggestions for [facility] at this time. Mother states that pt has f/u with Dr. Holman next week and she is going to meet with CM at [facility] also. Mother voices no further questions/concerns/needs at this time. Grecia DURÁN CM Original Note: RN CM Discharge F/U Phone Call LACE: 9 Strata: 3 Discharge date: 08/21/18 Call date: 08/22/18 Call time: 1614 Attempted to reach pt without success at this time, message left with pt to call this RN CM back if able. Grecia DURÁN CM Admission dx: Respiratory failure
--- OUTSIDE RECORDS SUMMARY | 2018-10-11 21:11 | XMS RPT_ITS ---
:1975 Author Organization [place] Support Name Relationship Address Phone LETTY DUPONT Unavailable [address] + [place] [address] [employer] Unavailable [address] + [place] [address] LETTY DUPONT Unavailable [address] + [place] [address] [employer] Unavailable [address] + [place] [address] LETTY DUPONT Unavailable [address] + [place] [address] [employer] Unavailable [address] + [place] [address] LETTY DUPONT Unavailable [address] + [place] [address] [employer] Unavailable [address] + [place] [address] LETTY DUPONT Unavailable [address] + [place] [address] [employer] Unavailable [address] + [place] [address] LETTY DUPONT Unavailable [address] + [place] [address] [employer] Unavailable [address] + [place] [address] LETTY DUPONT Unavailable [address] + [place] [address] [employer] Unavailable [address] + [place] [address] LETTY DUPONT Unavailable [address] + [place] [address] [employer] Unavailable [address] + [place] [address] LETTY DUPONT Unavailable [address] + [place] [address] [employer] Unavailable [address] + [place] [address] LETTY DUPONT Unavailable [address] + [place] [address] [employer] Unavailable [address] + [place] [address] LETTY DUPONT Unavailable [address] + [place] [address] [employer] Unavailable [address] + [place] [address] LETTY DUPONT Unavailable [address] + [place] [address] [employer] Unavailable [address] + [place] [address] LETTY DUPONT Unavailable [address] + [place] [address] [employer] Unavailable [address] + [place] [address] LETTY DUPONT Unavailable [address] + [place] [address] [employer] Unavailable [address] + [place] [address] LETTY DUPONT Unavailable [address] + [place] [address] [employer] Unavailable [address] + [place] [address] Care Team Providers Name Role Phone MASTER TRIMBLE Attending Unavailable TOMAS DELGADO Referring Unavailable BREANNE VALIENTE (LOADER) Attending Unavailable TOMAS DELGADO Referring Unavailable TOMAS DELGADO Attending Unavailable BREANNE VALIENTE (LOADER) Referring Unavailable LASHAY FELTON (PA) Attending Unavailable LASHAY FELTON (PA) Referring Unavailable MASTER TRIMBLE Attending Unavailable ADORE, DELMI Jiang Attending Unavailable LASHAY FELTON (ZAIRA) Referring Unavailable LASHAY FELTON (ZAIRA) Attending Unavailable LASHAY FELTON (ZAIRA) Referring Unavailable LASHAY FELTON (ZAIRA) Referring Unavailable ADORE, DELMI Jiang Attending Unavailable TOMAS DELGADO Referring Unavailable ARY ZUNIGA (ZAIRA) Attending Unavailable TOMAS DELGADO Referring Unavailable TESTMASTER GOMEZ Referring Unavailable TOMAS DELGADO Attending Unavailable ADORE, DELMI Jiang Referring Unavailable ISABELL CHAN (ZAIRA) Referring Unavailable ADORE, DELMI Jiang Admitting Unavailable ADOREDELMI SHIRLEY Attending Unavailable Ruth Funk Attending Unavailable Sendy Orellana Referring Unavailable Sendy Lynch Attending Unavailable Tomas Delgado [facility] Unavailable Jopperi, Aurelio Admitting Unavailable Jack, Oscar Consulting Unavailable Moodispaw, Jeffrey Consulting Unavailable Jopperi, Aurelio Admitting Unavailable Joshilaeri, Aurelio Attending Unavailable Sendy Orellana [facility] Unavailable Jopperi, Aurelio Consulting Unavailable Jopperi, Aurelio Admitting Unavailable Paintsil, [place] Attending Unavailable Esteban Sendy [facility] Unavailable Jack, Oscar Consulting Unavailable Moodispaw, Jeffrey Consulting Unavailable Paintsil, [place] Consulting Unavailable Jopperi, Aurelio Admitting Unavailable Moodispaw, Jeffrey Attending Unavailable Esteban Sendy [facility] Unavailable Jack, Oscar Consulting Unavailable Moodispaw, Jeffrey Consulting Unavailable Paintsil, [place] Consulting Unavailable Jopperi, Aurelio Admitting Unavailable Yuri Wang D.O. Attending Unavailable Sendy Orellana [facility] Unavailable Jack, Oscar Consulting Unavailable Moodispaw, Jeffrey Consulting Unavailable Paintsil, [place] Consulting Unavailable Jopperi, Aurelio Admitting Unavailable Sendy Lynch Attending Unavailable Sendy Orellana [facility] Unavailable Jack, Oscar Consulting Unavailable Moodispaw, Jeffrey Consulting Unavailable Sendy Lynch Consulting Unavailable Aliciapperi, Aurelio Admitting Unavailable Yuri Wang D.O. Attending Unavailable Sendy Orellana [facility] Unavailable Jack, Oscar Consulting Unavailable Moodispaw, Jeffrey Consulting Unavailable Sendy Lynch Consulting Unavailable Aliciapperi, Aurelio Admitting Unavailable MoodJeffrey lozano Attending Unavailable Sendy Orellana [facility] Unavailable Jack, Oscar Consulting Unavailable Moodispaw, Jeffrey Consulting Unavailable Sendy Lynch Consulting Unavailable Jopperi, Aurelio Admitting Unavailable Kittoe, Sendy Attending Unavailable Sendy Orellana [facility] Unavailable Jack, Oscar Consulting Unavailable Moodispaw, Jeffrey Consulting Unavailable Kittoe, Sendy Consulting Unavailable Jopperi, Aurelio Admitting Unavailable Yuri Wang D.O. Attending Unavailable Sendy Orellana [facility] Unavailable Jack, Oscar Consulting Unavailable Moodispaw, Jeffrey Consulting Unavailable Kittoe, Sendy Consulting Unavailable Jopperi, Aurelio Admitting Unavailable Moodispaw, Jeffrey Attending Unavailable Sendy Orellana [facility] Unavailable Jack, Oscar Consulting Unavailable Moodispaw, Jeffrey Consulting Unavailable Kittoe, Sendy Consulting Unavailable Jopperi, Aurelio Admitting Unavailable Yuri Wang D.O. Attending Unavailable Sendy Orellana [facility] Unavailable Jack, Oscar Consulting Unavailable Moodispaw, Jeffrey Consulting Unavailable Kittoe, Sendy Consulting Unavailable Jopperi, Aurelio Admitting Unavailable Moodispaw, Jeffrey Attending Unavailable Sendy Orellana [facility] Unavailable Jack, Oscar Consulting Unavailable Moodispaw, Jeffrey Consulting Unavailable [place]on[place], Sendy Consulting Unavailable Jopperi, Aurelio Admitting Unavailable Kittoe, Sendy Attending Unavailable Sendy Orellana [facility] Unavailable Jack, Oscar Consulting Unavailable Moodispaw, Jeffrey Consulting Unavailable Kittoe, Sendy Consulting Unavailable PROBLEMS PROBLEMS DATE TYPE CONDITION / CODE ATTENDING STATUS SOURCE 08/30/2018 Unknown G47.33 - Obstructive Funk, Active [place] sleep apnea (adult) [facility] (pediatric) / [facility] G47.33(ICD-10) Repository 08/26/2018 Active Pain in left toe(s) NA Active [place] / M79.675(ICD-10) [facility] [place] Repository 08/26/2018 Active Pain in right toe(s) NA Active [place] / M79.674(ICD-10) [facility] [place] Repository 08/26/2018 Active Congenital pes cavus NA Active [place] / Q66.7(ICD-10) [facility] [place] Repository 08/02/2018 Active Unknown / NA Active [facility] UNK(Unknown) Clinic Other [place] Repository 06/18/2018 Active Obstructive sleep NA Active [place] apnea (adult) [facility] (pediatric) / [place] G47.33(ICD-10) Repository 10/05/2015 Active Morbid (severe) NA Active [place] obesity due to [facility] excess calories / [place] E66.01(ICD-10) Repository 08/02/2018 Active Encounter for other NA Active [place] preprocedural [facility] examination / [place] Z01.818(ICD-10) Repository 07/25/2018 Active Incisional hernia NA Active [place] without obstruction Clinic Other or gangrene / [place] K43.2(ICD-10) Repository 07/16/2018 Active Other specified soft NA Active [place] tissue disorders / [facility] M79.89(ICD-10) [place] Repository 06/06/2016 Active Type 2 diabetes NA Active [place] mellitus with [facility] hyperglycemia / [place] E11.65(ICD-10) Repository 10/05/2015 Active Mixed hyperlipidemia NA Active [place] / E78.2(ICD-10) [facility] [place] Repository 10/05/2015 Active Essential (primary) NA Active [place] hypertension / [facility] I10(ICD-10) [place] Repository 12/22/2017 Active 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 [address] [place] [address] OFFICE VISIT Date of Service: 08/30/18 MR#: [id number] Acct: [id number] Name: EDD DUPONT Rep #: [id number] : 1975 Provider: Ruth Funk Age/Sex: 43/M Location: [facility] [place] Status: Signed Assessment AND Plan 1. BAN (obstructive sleep apnea) G47.33 Plan Patient is agreeable to a titration study and the reinstitution of Pap therapy. He reports that previously he had difficulties with a high pressure and felt that the provider ordering his Pap was unable to titrate pressures to allow the patient to acclimate to Pap therapy. At this point he understands the impact on his health and is motivated to get treatment. Discussed that initially the goal will be that he wear the device at least 4 hours nightly but ultimately it should be worn anytime spent sleeping. He would like to hold off on testing until after the first of the year as the patient has just recently approved substantial amount of medical bills. Follow-up with Dr. Wang in 3 months, at which time anticipate the patient will be on therapy approximately 4 weeks. He has been encouraged to contact the office with any difficulties acclimating therapy in the meantime. Orders Orders: 2. Class 3 severe obesity due to excess calories with serious comorbidity and body mass index (BMI) of 40.0 to 44.9 in adult E66.01; Z68.41 Plan Encourage weight loss. 3. Flash pulmonary edema J81.0 Plan Improved. Compliant with medications. Educated on abstaining from sodium in his diet. Given education materials on a pulmonary hypertension diet. Plan Detail Other Medications New: Follow Up 3 Months (DMB) HPI HPI Comments Details: This is a 43 year old M, currently under the care of Sendy Orellana DO, here to follow up after a recent hospitalization at [facility], from August 17 - August 21, 2018 for flash pulmonary edema. The hospital stay was complicated by respiratory failure requiring temporary ventilator support and intubation. 17 pages of hospital documentation was reviewed, and found to be significant for chest x-ray completed on August 17, 2018 showing low lung volumes but grossly clear. A CT chest 2017 and showed extensive multifocal lung disease, leading differential considerations are infectious disease and pulmonary edema. Repeat chest x-ray completed on August 17 showed that the endotracheal tube was in position advanced, KUB on 08/17/2018 showed good position of the orogastric tube. Upon discharge, the patient started on aspirin, low-dose daily as well as 40 mg of Lasix daily, Lisinopril 20 mg daily and Lopressor 25 mg. Presents to the office ambulatory and on room air. Accompanied today by his mother. He continues to experience some shortness of breath on exertion. He admits that he has not been watching his diet and has been eating potato chips and since has noticed an increase in weight gain and lower extremity edema. He denies any chest pain or palpitations. He does have an occasional cough that is productive of yellow to green sputum. He denies any wheezing or chest tightness. He denies any chest pain or palpitations. He was previously diagnosed with obstructive sleep apnea approximately 2 years ago but was unable to tolerate the prescribed Pap settings. He reports 5 episodes of nocturia nightly. He does not feel rested upon arising in the morning. He naps all day long. He is known to snore and has been witnessed having episodes of apnea. Intake Vital Signs08/30/18 Body Mass Index (BMI) 43.2 08/30/18 Height 5 ft 11.5 in 08/30/18 Weight: 314 lb 08/30/18 Body Mass Index (BMI) 43.2 Intake Visit Reasons: Hospital FU Accompanied by: Mother Allergies codeine Adverse Reaction (Verified 08/30/18 12:33) Other Medications Acetaminophen [Tylenol] 500 - 1,000 mg PO Q6H PRN PRN 02/13/17 [History Confirmed 08/30/18] Atorvastatin Calcium [Lipitor] 20 mg PO QHS 02/13/17 [History Confirmed 08/30/18] Metformin HCl [Metformin HCl ER] 500 mg PO BID 02/13/17 [History Confirmed 08/30/18] Oxycodone [Oxyir] 5 mg PO Q4H PRN PRN #30 tab 02/19/17 [Rx Confirmed 08/30/18] Aspirin [Aspirin, Baby] 81 mg PO DAILY@0800 #30 tab.chew 08/21/18 [Rx Confirmed 08/30/18] Lisinopril [Zestril] 20 mg PO BID #60 tab 08/21/18 [Rx Confirmed 08/30/18] Metoprolol Tartrate [Lopressor (beta shawn)] 25 mg PO BID #60 tab 08/21/18 [Rx Confirmed 08/30/18] furosemide 20 mg tablet 20 mg PO DAILY 08/30/18 [History Confirmed 08/30/18] PFSH Medical History Hypertensive emergency (Acute) Flash pulmonary edema (Acute) Thrombocytopenia (Acute) Chest pain (Acute) Borderline diabetes (Chronic) Hyperlipidemia (Chronic) Elevated CPK (Acute) Obesity (Chronic) Benign essential HTN (Chronic) Surgical History S/P inguinal hernia repair (Acute) Social History Smoking Status: Former smoker RVSP RVSP: 28 mmHg Review of Systems Const CONSTITUTIONAL: Positive fatigue and weight gain; negative anorexia, body ache, chills, daytime sleepiness, fever(s), night sweats, oral thrush, stops breathing during sleep, weight loss, sleeping in chair, weight loss, frequent colds, seasonal allergies, other, headache(s) or orthopnea EETM Ear Nose Throat Mouth: Positive hearing normal; negative hard of hearing, hoarseness, dry mouth in morning, change in vision, itchy eyes, eye pain, swallowing Difficulty, ear pain, nose bleed, headache(s), mouth pain, nasal congestion, nasal discharge, post nasal drip, sinus pain, sinus pressure, sore throat or other Cardio Cardiovascular: Negative chest pain, chest pain at rest, chest pain with activity, irregular heart rhythm, edema, shortness of breath when lying down, palpitations, murmur or other Resp Respiratory: Positive as per HPI, cough cough: Positive productive color: Positive yellow and green and non-productive and snoring; negative shortness of breath, pain with cough, wheezing, chest congestion, chest tightness, pain on inspiration, inhalers, increase use of rescue inhalers, apnea or other Gastro Gastrointestional: Positive other (upset stomach); negative bloody stools, change in appetite, difficulty swallowing, reflux, hematemesis, melena stool, loose stool or constipation Genitourinary: Positive nocturia; negative blood in urine, pain with urination or other Musc Musculoskeletal: Negative body pain, back pain, neck pain or other Skin/Breast Skin/Breast: Negative dry skin, itching, rash, unusual bruising, breast lump or other Neuro Neurological: Negative restless legs, confusion, weakness or other Psych Psychocological: Positive abnormal sleep pattern; negative anxiety, thoughts of hurting self/others, hopelessness or other Lymph Lymphatic: Negative easy bleeding, easy bruising, swollen lymph nodes or other Exam Const Constitutional: Positive conversant, cooperative, in no acute respiratory distress, well developed, well nourished, poor hygiene and obese Head Head: Positive normocephalic and atraumatic; negative cyanosis of lips/distal nose Eyes Eye: Positive clear conjunctiva; negative nystagmus or scleral abnormality Ears Ear: Positive hearing normal and external ears normal; negative hard of hearing Nose Nose: Positive external nose normal and no nasal discharge; negative epistaxis Mouth Mouth: Positive oral mucosae normal, no lesions, poor dentition and crowded posterior oropharynx; negative post nasal drip or oral thrush present Mallampati Score: III: Mallampati Score Neck Neck: Positive normal visual inspection, full ROM, trachea midline, thick neck and male neck greater than 43 cm (17 in); negative lymphadenopathy, JVD or tender Chest Wall Chest: Positive normal inspection of the chest and symmetric chest movement; negative increased A/P diameter Resp lung sounds: Positive clear to auscultation, good air exchange, normal expiratory time and normal respiratory effort; negative diminished, wheezes, rhonchi, rales, dullness to percussion or wheeze present on forced exhalation Cardio Cardiac: Positive regular rate, regular rhythm, S1 normal and S2 normal; negative murmur GI GI: Positive normal to inspection and obese; negative distended Genitourinary: Positive deferred Musc Musculoskeletal: Positive steady gait and ROM normal; negative kyphosis or scoliosis Skin Pulmonary Skin Exam: Positive intact; negative rash Pulses Pulse: Yes pulses normal x4 extremities Extremities Extremities: Yes capillary refill normal, No clubbing, No cyanosis, Yes edema Location: lower extremity location: Bilateral pitting +2 Neuro Neurologic: Yes conversant, Yes no focal neuro deficits, Yes normal concentration, Yes understands questions, Yes cooperative, Yes normal cognition, Yes normal coordination, No tremor Lymph Lymphatic: No lymphadenopathy, No tenderness, No cervical adenopathy Psych Appearance: Positive grossly normal and eye contact Mental Status: Positive mental status grossly normal Mood: Positive congruent mood Affect: Positive normal affect Coding Level of Care Code Off vis,est,level 4 Diagnoses BAN (obstructive sleep apnea) G47.33 Class 3 severe obesity due to excess calories with serious comorbidity and body mass index (BMI) of 40.0 to 44.9 in adult E66.01; Z68.41 Obesity type: due to excess calories Obesity classification: adult class 3 (BMI >= 40) Serious obesity comorbidity presence: with serious comorbidity Body mass index: BMI 40.0-44.9 Flash pulmonary edema J81.0 08/30/18 1538 <Electronically signed by Ruth EVANGELISTA> Date Ruth EVANGELISTA Cosigner Signature: Date (if applicable) CC: Sendy Orellana DO PROGRESS Observed: 08/29/2018 Status: COMPLETED Source: [place] 11:26 AM [facility] [place] REPOSITORY HNO ID: [id number] Author: Shawn Aj (Sw) Service: (none) Author Type: Cook Helper Pastry Type: Progress Notes Filed: 08/29/2018 11:29 AM Note Text: Sw spoke with patient mom Letty. Provided [facility] Service and Support number [phone]. also gave mom [facility] #[phone]. Patient mom has direct number for further questions and or concerns about community social work nurse. PROGRESS Observed: 08/28/2018 Status: COMPLETED Source: [place] 1:53 PM [facility] REPOSITORY HNO ID: [id number] Author: Carla Burleson) M[place] Service: (none) Author Type: Registered Nurse Type: Progress Notes Filed: 08/28/2018 3:32 PM Note Text: PRIMARY CARE COORDINATION IN OFFICE VISIT WITH PCP Patient has been identified by name and date of . PCP Assessment/Plan: Saw patient with SW before PCP. Discussed assistance for patient since parents help him with writing bills, checkbook, paperwork and pre-filling and reminding to take medications. gave information for mother to contact several agencies. PCC Plan of Care: Patient concerns: Mother is worried about who will assist patient as his parents age since they are having their own health issues now. Next Office Visit: 09/24/2018 Plan For Next Call: Next week Carla Crocuh RN August 28, 2018 PROGRESS Observed: 08/27/2018 Status: COMPLETED Source: [place] 3:14 PM [facility] REPOSITORY HNO ID: [id number] Author: Shawn Aj (Sw) Service: (none) Author Type: Cook Helper Pastry Type: Progress Notes Filed: 08/29/2018 11:29 AM Note Text: Patient and pt mother spoke about things that mom does for patient ie. Transportation, help with bills, arranging appts, help with medication management. Mother is interested in case management and or social service programs to help patient look into. Patient mom is concerned that if and when something should happen to her and or her patient will struggle with identifying and obtaining service assistance in above areas of need. Patient reports that he currently works at [employer] and is there through [employer] program. Patient states that he does not receive any other forms of service assistance from [employer] other then employment assistance through [employer]. Sw told patient and mother that she would look up contact information for [facility] and [facility]. Sw discussed that patient could see about assessment through [facility] to see if eligible for director of radio services and see if eligible for any assistance through [facility]. Patient mother notes that patient was on the border line in school and did not receive any developmental delay services but struggles with daily living skills above. Sw will call patient mother with numbers for Outreach and [facility]. PROGRESS Observed: 08/27/2018 Status: COMPLETED Source: [place] 11:40 AM [facility] REPOSITORY O ID: [id number] Author: Tomas Delgado Service: (none) Author Type: Physician Type: Progress Notes Filed: 08/27/2018 9:08 PM Note Text: Transitional Care Management Progress Note The patients TCM visit was performed within the 7 days of discharge. TCM Eligibility Documentation The following information was gathered during the initial Patient Outreach Encounter. Date of Outreach: 08/22/2018 Outreach Attempt 1: Contact Made Date of Discharge 08/21/2018 Some recent data might be hidden If no data exists please enter it manually. If data exists please delete date of discharge and date of initial contact seen below. Patient's Date of discharge: 08/21 Date of initial coordinator contact after discharge: 08/22 Discharge diagnosis: HTN, Flash Pulmonary edema, s/p inguinal hernia repair Medication review completed Yes TRANSITION CARE MANAGEMENT (TCM) INITIAL CONTACT ? ? Provider Action/FYI: ? PLEASE FILE MEDICATION UPDATES HCTZ D/C'd ? No LE swelling or SOB, occasional productive cough Pt is ambulating quite a bit since discharge, but had just been lying in bed after inguinal hernia repair. Mother states pt is scared because he was intubated. ? Pt willing to go for sleep study and try CPAP again Pt has been non-compliant with CPAP and needs to start the entire process of sleep study and titration over again ? TC to [facility], pt has not filled Zetia since 09/02. Instructed to call pt's mother regarding refill of medication ? TC from [place] from [facility], because there is a $20 copay for each visit pt is refusing nursing, PT and OT Discussed getting pt involved with [facility], nurse will discuss with Hernesto Frausto nurse instructed on home BP and when to call MD Noted pt was belching frequently during her visit ? ? ? Initial contact with patient post discharge, spoke to patient and mother. Patient identified by name and . ? TRANSITION CARE MANAGEMENT: Date of Outreach: 08/22/2018 Outreach Attempt 1: Contact Made Date of Discharge 08/21/2018 Some recent data might be hidden ? SUMMARY: -Pt discharged from [facility] on 08/21. -Follow up appointment on 08/27 w/ PCP. -Medication review done with mother, patient could not complete review by himself. -Admitted for: Hypertensive emergency (Acute) Flash pulmonary edema (Acute) S/P inguinal hernia repair (Acute) ? CONCERNS: See above ? NEW MEDICATIONS: Aspirin [Aspirin, Baby] 81 mg PO DAILY@0800 #30 tab.chew Furosemide [Lasix] 40 mg PO DAILY #30 tablet Lisinopril [Zestril] 20 mg PO BID #60 tablet Metoprolol Tartrate [Lopressor (beta shawn)] 25 mg PO BID #60 tablet ? MEDS HELD/DISCONTINUED: Hydrochlorothiazide 12.5 mg Take 1 capsule by mouth once daily. ? BRIEF HOSPITAL COURSE: Patient is a 43-year-old gentleman who underwent inguinal hernia repair on 08/14/2018 presented to the emergency department on 08/17/2018 with progressive shortness of breath and assessment of acute hypertensive crisis with flash pulmonary edema made patient admitted to the intensive care unit for subsequent management. ? 1. Acute hypoxic respiratory failure secondary to come [place] of flash pulmonary edema and suspected pneumonia; patient was emergently intubated in the ED upon arrival weaned off the vent on the morning of 08/18/2018 patient still remains dyspneic at rest plan is to encourage pulmonary toileting ? 2. Acute flash pulmonary edema possibly diastolic dysfunction from patient markedly elevated blood pressure on admission. Patient managed on Lasix 2D echo ordered for EF assessment; 2D echo demonstrated ejection of 70% consistent with acute diastolic dysfunction ? 3. Suspected community-acquired pneumonia: Secondary to viral pneumonia. Bacterial pneumonia was ruled out ? 4. Acute hypertensive crisis: Patient systolic blood pressure on admission was greater than 200 patient blood pressure has since improved ? 5. Elevated troponin secondary to type II non-ST MT from demand ischemia is discussed with Dr. Weldon patient underwent left heart catheterization on 08/20/2018 which failed to demonstrate any obstructive lesions. ? 6. Diabetes mellitus type II: patient's oral hypoglycemics held. Placed on long acting insulin, Accu-Cheks a.c. and at bedtime and covered with sliding scale insulin ? 7. Morbid obesity with BMI of 43.6 ? 8. Status post left inguinal hernia repair on 08/14/[address] Avitia ? 9. DVT prophylaxis SC Lovenox ? Carla Crouch RN ? Michaela Hewitt Ma Provider Documentation: In follow-up of hospitalization, Edd Dupont is a 43 year old male with the chief complaint of hospital f/u I have reviewed the patient?s last hospital course including diagnostic testing performed during this hospitalization, their discharge medications, and my assessment and plan with the patient and any family members present at today?s visit. Patient had inguinal hernia surgery 08/14/[address] [facility] 08/17/2018 with progressive shortness of breath with assessment of acute hypertensive crisis and flash pulmonary edema. Patient was subsequently intubated due to hypoxic respiratory failure. He was also felt to have viral pneumonia as bacterial was ruled out. The acute hypertensive crisis also produced demand ischemia causing an increase in Trop I. Heart Cath done 08/20/2018 and showed no arterial blockages in the coronaries found. Was seen by cardiology and felt the flash pulmonary edema was secondary to the hypertensive crisis. Patient has been feeling better. Was needing assistence when he was first released to get up and move around but doing things on his own and being more active around the house not requiring assistance. No longer needing the use of a walker. Has a Hx of BAN and was not able to tolerate the CPAP but wants to try again to prevent future heart and breathing related issues. BP's at home have run 128-160/55-80 (per mom cuff at home is old). No headaches, chest pain, palpitations, edema, shortness of breath, productive cough and no orthopnea or paroxysmal nocturnal dyspnea. Saw Dr. Wagn in the hospital: Was not set up to f/u with cardio or pulm. Fasting blood sugars 124-200 and evening BS's 137-236 Has a sore sore area on his butt and with moving around has been more tender. PHYSICAL EXAMINATION: BP 104/52 Pulse (!) 58 Resp 16 Wt (!) 139.3 kg (307 lb) SpO2 94% BMI 42.84 kg/m? General appearance: Well appearing, alert, in no acute distress, well-hydrated, well nourished. Skin: skin of rectal groove is irritated but no ulcers or open sores. Has some stool on the skin. No signs of infection. Eyes: Anicteric sclera. Pupils are equally round Extraocular movements are intact. Neck: Supple, no adenopathy; thyroid symmetric, normal size, no bruits Lungs: lungs clear to auscultation. No wheezing, rhonchi, rales Heart: RRR without murmur, gallop, or rubs. No ectopy Abdomen: Normal abdominal exam, Abdomen soft, non-tender. Bowel sounds normal. No masses, organomegaly Extremities: No deformities, edema, skin discoloration Musculoskeletal: Muscular strength intact Peripheral pulses: Normal Neuro: Gait normal. No gross deficits. A/P ASSESSMENT/PLAN: 1. Hypertensive crisis - ICD9: 401.9, ICD10: I16.9 (primary diagnosis) - good control - Crisis resolved. - Script for BP cuff given BP too low - Decrease furosemide (Lasix) to 20 mg a day. - Recommended regular aerobic exercise. - Recommend home blood pressure monitoring, to bring results in on next visit - Goal of BP <130/80 - NV BP check in 4 weeks 2. Flash pulmonary edema (HCC) - ICD9: 518.4, ICD10: J81.0 - Resolved and doing better - With BP being too low will decrease the FUROSEMIDE to 20 MG TABLET once a day. 3. Viral pneumonia - ICD9: 480.9, ICD10: J12.9 - resolved 4. Elevated troponin level - ICD9: 790.6, ICD10: R74.8 - Cardiac cath was normal and felt to be secondary to cardiac demand from the hypertensive crisis. 5. Obstructive sleep apnea syndrome - ICD9: 327.23, ICD10: G47.33 - Will refer to Dr. Wang for eval and management. 6. Skin irritation - ICD9: 709.9, ICD10: R23.8 - Rectal area do to chafing and not cleaning area well. Patient to clean better and cont topical barrier. Signed Prescriptions Disp Refills furosemide (LASIX) 20 mg tablet 30 tablet 5 Sig: Take 1 tablet by mouth once daily. ROSALIE: No Miscellaneous Medical Supply (BLOOD PRESSURE CUFF[place] [facility] [place] Each 0 Sig: Of appropriate size, Number one, Dx I10 Keep routine f/u in early Oct 2018 NV BP check in 4 weeks Tomas Delgado MD CNOV Observed: 08/27/2018 Status: COMPLETED Source: [place] 11:40 AM [facility] REPOSITORY Office Visit (FAMPWS) EDD DUPONT ([id number]) 1975 M Date Time Provider Department 08/27/18 11:40 AM TOMAS DELGADO FAMPWS During your visit today, we recorded the following information about you: Pulse Respiration Blood pressure Weight 58/minute 16/minute 104/52 139.3 kg Tomas Delgado MD 08/27/2018 9:08 PM Signed Transitional Care Management Progress Note The patients TCM visit was performed within the 7 days of discharge. TCM Eligibility Documentation The following information was gathered during the initial Patient Outreach Encounter. Date of Outreach: 08/22/2018 Outreach Attempt 1: Contact Made Date of Discharge 08/21/2018 Some recent data might be hidden If no data exists please enter it manually. If data exists please delete date of discharge and date of initial contact seen below. Patient's Date of discharge: 08/21 Date of initial coordinator contact after discharge: 08/22 Discharge diagnosis: HTN, Flash Pulmonary edema, s/p inguinal hernia repair Medication review completed Yes TRANSITION CARE MANAGEMENT (TCM) INITIAL CONTACT ? ? Provider Action/FYI: ? PLEASE FILE MEDICATION UPDATES HCTZ D/C'd ? No LE swelling or SOB, occasional productive cough Pt is ambulating quite a bit since discharge, but had just been lying in bed after inguinal hernia repair. Mother states pt is scared because he was intubated. ? Pt willing to go for sleep study and try CPAP again Pt has been non-compliant with CPAP and needs to start the entire process of sleep study and titration over again ? TC to [facility], pt has not filled Zetia since 09/02. Instructed to call pt's mother regarding refill of medication ? TC from [place] [facility], because there is a $20 copay for each visit pt is refusing nursing, PT and OT Discussed getting pt involved with [facility], nurse will discuss with Hernesto Frausto nurse instructed on home BP and when to call MD Noted pt was belching frequently during her visit ? ? ? Initial contact with patient post discharge, spoke to patient and mother. Patient identified by name and . ? TRANSITION CARE MANAGEMENT: Date of Outreach: 08/22/2018 Outreach Attempt 1: Contact Made Date of Discharge 08/21/2018 Some recent data might be hidden ? SUMMARY: -Pt discharged from [facility] on 08/21. -Follow up appointment on 08/27 w/ PCP. -Medication review done with mother, patient could not complete review by himself. -Admitted for: Hypertensive emergency (Acute) Flash pulmonary edema (Acute) S/P inguinal hernia repair (Acute) ? CONCERNS: See above ? NEW MEDICATIONS: Aspirin [Aspirin, Baby] 81 mg PO DAILY@0800 #30 tab.chew Furosemide [Lasix] 40 mg PO DAILY #30 tablet Lisinopril [Zestril] 20 mg PO BID #60 tablet Metoprolol Tartrate [Lopressor (beta shawn)] 25 mg PO BID #60 tablet ? MEDS HELD/DISCONTINUED: Hydrochlorothiazide 12.5 mg Take 1 capsule by mouth once daily. ? BRIEF HOSPITAL COURSE: Patient is a 43-year-old gentleman who underwent inguinal hernia repair on 08/14/2018 presented to the emergency department on 08/17/2018 with progressive shortness of breath and assessment of acute hypertensive crisis with flash pulmonary edema made patient admitted to the intensive care unit for subsequent management. ? 1. Acute hypoxic respiratory failure secondary to come the [place] of flash pulmonary edema and suspected pneumonia; patient was emergently intubated in the ED upon arrival weaned off the vent on the morning of 08/18/2018 patient still remains dyspneic at rest plan is to encourage pulmonary toileting ? 2. Acute flash pulmonary edema possibly diastolic dysfunction from patient markedly elevated blood pressure on admission. Patient managed on Lasix 2D echo ordered for EF assessment; 2D echo demonstrated ejection of 70% consistent with acute diastolic dysfunction ? 3. Suspected community-acquired pneumonia: Secondary to viral pneumonia. Bacterial pneumonia was ruled out ? 4. Acute hypertensive crisis: Patient systolic blood pressure on admission was greater than 200 patient blood pressure has since improved ? 5. Elevated troponin secondary to type II non-ST MT from demand ischemia is discussed with Dr. Weldon patient underwent left heart catheterization on 08/20/2018 which failed to demonstrate any obstructive lesions. ? 6. Diabetes mellitus type II: patient's oral hypoglycemics held. Placed on long acting insulin, Accu-Cheks a.c. and at bedtime and covered with sliding scale insulin ? 7. Morbid obesity with BMI of 43.6 ? 8. Status post left inguinal hernia repair on 08/14/[address] Avitia ? 9. DVT prophylaxis SC Lovenox ? Carla Crouch RN ? Michaela Hewitt Ma Provider Documentation: In follow-up of hospitalization, Edd Dupont is a 43 year old male with the chief complaint of hospital f/u I have reviewed the patient?s last hospital course including diagnostic testing performed during this hospitalization, their discharge medications, and my assessment and plan with the patient and any family members present at today?s visit. Patient had inguinal hernia surgery 08/14/2018 [address] the [facility] 08/17/2018 with progressive shortness of breath with assessment of acute hypertensive crisis and flash pulmonary edema. Patient was subsequently intubated due to hypoxic respiratory failure. He was also felt to have viral pneumonia as bacterial was ruled out. The acute hypertensive crisis also produced demand ischemia causing an increase in Trop I. Heart Cath done 08/20/2018 and showed no arterial blockages in the coronaries found. Was seen by cardiology and felt the flash pulmonary edema was secondary to the hypertensive crisis. Patient has been feeling better. Was needing assistence when he was first released to get up and move around but doing things on his own and being more active around the house not requiring assistance. No longer needing the use of a walker. Has a Hx of BAN and was not able to tolerate the CPAP but wants to try again to prevent future heart and breathing related issues. BP's at home have run 128-160/55-80 (per mom cuff at home is old). No headaches, chest pain, palpitations, edema, shortness of breath, productive cough and no orthopnea or paroxysmal nocturnal dyspnea. Saw Dr. Wang in the hospital: Was not set up to f/u with cardio or pulm. Fasting blood sugars 124-200 and evening BS's 137-236 Has a sore sore area on his butt and with moving around has been more tender. PHYSICAL EXAMINATION: BP 104/52 Pulse (!) 58 Resp 16 Wt (!) 139.3 kg (307 lb) SpO2 94% BMI 42.84 kg/m? General appearance: Well appearing, alert, in no acute distress, well-hydrated, well nourished. Skin: skin of rectal groove is irritated but no ulcers or open sores. Has some stool on the skin. No signs of infection. Eyes: Anicteric sclera. Pupils are equally round Extraocular movements are intact. Neck: Supple, no adenopathy; thyroid symmetric, normal size, no bruits Lungs: lungs clear to auscultation. No wheezing, rhonchi, rales Heart: RRR without murmur, gallop, or rubs. No ectopy Abdomen: Normal abdominal exam, Abdomen soft, non-tender. Bowel sounds normal. No masses, organomegaly Extremities: No deformities, edema, skin discoloration Musculoskeletal: Muscular strength intact Peripheral pulses: Normal Neuro: Gait normal. No gross deficits. A/P ASSESSMENT/PLAN: 1. Hypertensive crisis - ICD9: 401.9, ICD10: I16.9 (primary diagnosis) - good control - Crisis resolved. - Script for BP cuff given BP too low - Decrease furosemide (Lasix) to 20 mg a day. - Recommended regular aerobic exercise. - Recommend home blood pressure monitoring, to bring results in on next visit - Goal of BP <130/80 - NV BP check in 4 weeks 2. Flash pulmonary edema (HCC) - ICD9: 518.4, ICD10: J81.0 - Resolved and doing better - With BP being too low will decrease the FUROSEMIDE to 20 MG TABLET once a day. 3. Viral pneumonia - ICD9: 480.9, ICD10: J12.9 - resolved 4. Elevated troponin level - ICD9: 790.6, ICD10: R74.8 - Cardiac cath was normal and felt to be secondary to cardiac demand from the hypertensive crisis. 5. Obstructive sleep apnea syndrome - ICD9: 327.23, ICD10: G47.33 - Will refer to Dr. Wang for eval and management. 6. Skin irritation - ICD9: 709.9, ICD10: R23.8 - Rectal area do to chafing and not cleaning area well. Patient to clean better and cont topical barrier. Signed Prescriptions Disp Refills furosemide (LASIX) 20 mg tablet 30 tablet 5 Sig: Take 1 tablet by mouth once daily. ROSALIE: No Miscellaneous Medical Supply (BLOOD PRESSURE CUFF) misc 1 Each 0 Sig: Of appropriate size, Number one, Dx I10 Keep routine f/u in early Oct 2018 NV BP check in 4 weeks Tomas Delgado MD Referring Provider: SELF [[id number]] Allergies As of Date: 08/27/2018 Noted Allergy Reaction CODEINE 01/12/2011 14 - Other: See Comments Comments: headache Date Reviewed: 08/27/2018 Reviewed by: Tomas Delgado - Fully Assessed Reason for Visit: Transition Of Care [4074] Cmt: [facility] HTN, pulmonary edema Primary Visit Diagnosis:Hypertensive crisis [I16.9] Other Visit Diagnoses:Flash pulmonary edema (HCC) [J81.0] Viral pneumonia [J12.9] Elevated troponin level [R74.8] Obstructive sleep apnea syndrome [G47.33] Skin irritation [R23.8] Order(s):furosemide (LASIX) 20 mg tabletTake 1 tablet by mouth once daily.Disp: 30 tabletRfl: 5 CONSULT TO PULMONARY MEDICINE [[id number]] Order #: [id number]: 1 Miscellaneous Medical Supply (BLOOD PRESSURE CUFF) miscOf appropriate size, Number one, Dx [id number]: 1 EachRfl: 0 Prescriptions as of 08/27/2018 Sig: AMMONIUM LACTATE 12 % TOPICAL* Apply 1 application to affect* ASPIRIN 81 MG TABLET,DELAYED * Take 1 tablet by mouth once d* ATORVASTATIN 80 MG TABLET Take 1 tablet by mouth once d* BLOOD SUGAR DIAGNOSTIC STRIPS Test glucose 1 x per day. Dx:* BLOOD-GLUCOSE METER KIT 1 Each as needed. EZETIMIBE 10 MG TABLET Take 1 tablet by mouth once d* FUROSEMIDE 20 MG TABLET Take 1 tablet by mouth once d* GABAPENTIN 100 MG CAPSULE Take 1 capsule by mouth three* LANCETS 28 GAUGE Test blood sugar(s) one times* LISINOPRIL 20 MG TABLET Take 1 tablet by mouth twice * METFORMIN ER 500 MG TABLET,EX* Take two tabs in AM and PM METOPROLOL TARTRATE 25 MG TAB* Take 1 tablet by mouth twice * SERTRALINE 50 MG TABLET Take 1.5 tablets by mouth onc* TRIAMCINOLONE ACETONIDE 0.5 %* Apply 1 application to affect* ACETAMINOPHEN 500 MG TABLET 500-1000 mg every 6 hours as * COMPOUNDED PRESCRIPTION Knee High Compression Stockin* MISCELLANEOUS MEDICAL SUPPLY * Of appropriate size, Number * More... Problem List As Of Date 08/27/2018 Noted Resolved Psoriasis [L40.9] INVALID FOR* Essential hypertension, benign [I10] INVALID FOR* Mixed hyperlipidemia [E78.2] INVALID FOR* Bilateral leg edema [R60.0] INVALID FOR*10/10/2016 Well adult exam [Z00.00] INVALID FOR*10/10/2016 More... Obstructive sleep apnea syndrome [G47.33] INVALID FOR*10/10/2016 More... Morbid obesity due to excess calories (HCC) [E6*INVALID FOR* Uncontrolled type 2 diabetes mellitus without c*INVALID FOR* Urinary frequency [R35.0] INVALID FOR*10/10/2016 Diabetic eye exam (HCC) [Z01.00, E11.9] INVALID FOR* More... 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 Incisional hernia [K43.2] INVALID FOR* More... Prescriptions ordered this encounter Disp Refills Start End FUROSEMIDE 20 MG TABLET 30 t* 5 08/27/2018 Route: ORAL Sig: Take 1 tablet by mouth once daily. MISCELLANEOUS MEDICAL SUPPLY [facility] 1 Ea* 0 08/27/2018 Class: Print RX Sig: Of appropriate size, Number one, Dx I10 Medications Discontinued During This Encounter furosemide (LASIX) 40 mg tablet 08/21/2018 08/27/2018 Class: Historical Med Sig: DAILY Disc: Duplicate Entry lisinopril (ZESTRIL, PRINIVIL) 20 mg* 08/21/2018 08/27/2018 Class: Historical Med Sig: TWICE A DAY Disc: Duplicate Entry metoprolol tartrate, short acting, (* 08/21/2018 08/27/2018 Class: Historical Med Sig: TWICE A DAY Disc: Duplicate Entry furosemide (LASIX) 40 mg tablet 08/23/2018 08/27/2018 Class: Med Update Route: ORAL Sig: Take 1 tablet by mouth once daily. Disc: Reason for discontinue is not on file. Follow-up and Disposition History Recorded Encounter Status:Closed by TOMAS DELGADO on 08/27/18 CHRISTIANJESUS Observed: 08/27/2018 Status: COMPLETED Source: [place] 12:00 AM [facility] REPOSITORY Patient Outreach (FAMPWS) KIAHEDD Longoria ([id number]) 1975 M Date Time Provider Department 08/27/18 CARLA CROUCH (RN) FAMPWS During your visit today, we recorded the following information about you: Carla Crouch RN 08/28/2018 3:32 PM Signed PRIMARY CARE COORDINATION IN OFFICE VISIT WITH PCP Patient has been identified by name and date of . PCP Assessment/Plan: Saw patient with SW before PCP. Discussed assistance for patient since parents help him with writing bills, checkbook, paperwork and pre- filling and reminding to take medications. SW gave information for mother to contact several agencies. PCC Plan of Care: Patient concerns: Mother is worried about who will assist patient as his parents age since they are having their own health issues now. 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 Dx:* BLOOD-GLUCOSE METER KIT 1 Each as needed. COMPOUNDED PRESCRIPTION Knee High Compression Stockin* EZETIMIBE 10 MG TABLET Take 1 tablet by mouth once d* FUROSEMIDE 20 MG TABLET Take 1 tablet by mouth once d* GABAPENTIN 100 MG CAPSULE Take 1 capsule by mouth three* LANCETS 28 GAUGE Test blood sugar(s) one times* LISINOPRIL 20 MG TABLET Take 1 tablet by mouth twice * METFORMIN ER 500 MG TABLET,EX* Take two tabs in AM and PM METOPROLOL TARTRATE 25 MG TAB* Take 1 tablet by mouth twice * MISCELLANEOUS MEDICAL SUPPLY * Of appropriate size, Number * SERTRALINE 50 MG TABLET Take 1.5 tablets by mouth onc* TRIAMCINOLONE ACETONIDE 0.5 %* Apply 1 application to affect* More... Problem List As Of Date 08/27/2018 Noted Resolved Psoriasis [L40.9] INVALID FOR* Essential hypertension, benign [I10] INVALID FOR* Mixed hyperlipidemia [E78.2] INVALID FOR* Bilateral leg edema [R60.0] INVALID FOR*10/10/2016 Well adult exam [Z00.00] INVALID FOR*10/10/2016 More... Obstructive sleep apnea syndrome [G47.33] INVALID FOR*10/10/2016 More... Morbid obesity due to excess calories (HCC) [E6*INVALID FOR* Uncontrolled type 2 diabetes mellitus without c*INVALID FOR* Urinary frequency [R35.0] INVALID FOR*10/10/2016 Diabetic eye exam (HCC) [Z01.00, E11.9] INVALID FOR* More... 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 Incisional hernia [K43.2] INVALID FOR* More... Encounter Status:Closed by CARLA CROUCH on 08/28/18 CNSW Observed: 08/27/2018 Status: COMPLETED Source: [place] 12:00 AM [facility] REPOSITORY Social Work ([facility]) KIAHEDD ([id number]) 1975 M Date Time Provider Department 08/27/18 SHAWN AJ (TITO MARQUEZ During your visit today, we recorded the following information about you: Shawn ChanBEATRIS roy-RN TELEPHONE TRIAGE 08/29/2018 11:29 AM Signed Patient and pt mother spoke about things that mom does for patient ie. Transportation, help with bills, arranging appts, help with medication management. Mother is interested in case management and or social service programs to help patient look into. Patient mom is concerned that if and when something should happen to her and or her patient will struggle with identifying and obtaining service assistance in above areas of need. Patient reports that he currently works at [employer] and is there through [employer]. Patient states that he does not receive any other forms of service assistance from [employer] other then employment assistance through [employer]. Mela told patient and mother that she would look up contact information for [facility] and [facility]. Mela discussed that patient could see about assessment through [facility] to see if eligible for director of radio services and see if eligible for any assistance through [facility]. Patient mother notes that patient was on the border line in school and did not receive any developmental delay services but struggles with daily living skills above. Mela will call patient mother with numbers for Outreach and [facility]. Shawn BEATRIS Aj-RN TELEPHONE TRIAGE 08/29/2018 11:29 AM Signed Mela spoke with patient mom Letty. Provided [facility] Service and Support number [phone]. Mela also gave mom [facility] #[phone]. Patient mom has direct number for further questions and or concerns about community social work nurse. Allergies As of Date: 08/27/2018 Noted Allergy Reaction CODEINE 01/12/2011 14 - Other: See Comments Comments: headache Date Reviewed: 08/27/2018 Reviewed by: Tomas Delgado - Fully Assessed Prescriptions as of 08/27/2018 Sig: ACETAMINOPHEN 500 MG TABLET 500-1000 mg every 6 hours as * AMMONIUM LACTATE 12 % TOPICAL* Apply 1 application to affect* ASPIRIN 81 MG TABLET,DELAYED * Take 1 tablet by mouth once d* ATORVASTATIN 80 MG TABLET Take 1 tablet by mouth once d* BLOOD SUGAR DIAGNOSTIC STRIPS Test glucose 1 x per day. Dx:* BLOOD-GLUCOSE METER KIT 1 Each as needed. COMPOUNDED PRESCRIPTION Knee High Compression Stockin* EZETIMIBE 10 MG TABLET Take 1 tablet by mouth once d* FUROSEMIDE 20 MG TABLET Take 1 tablet by mouth once d* GABAPENTIN 100 MG CAPSULE Take 1 capsule by mouth three* LANCETS 28 GAUGE Test blood sugar(s) one times* LISINOPRIL 20 MG TABLET Take 1 tablet by mouth twice * METFORMIN ER 500 MG TABLET,EX* Take two tabs in AM and PM METOPROLOL TARTRATE 25 MG TAB* Take 1 tablet by mouth twice * MISCELLANEOUS MEDICAL SUPPLY * Of appropriate size, Number * SERTRALINE 50 MG TABLET Take 1.5 tablets by mouth onc* TRIAMCINOLONE ACETONIDE 0.5 %* Apply 1 application to affect* More... Problem List As Of Date 08/27/2018 Noted Resolved Psoriasis [L40.9] INVALID FOR* Essential hypertension, benign [I10] INVALID FOR* Mixed hyperlipidemia [E78.2] INVALID FOR* Bilateral leg edema [R60.0] INVALID FOR*10/10/2016 Well adult exam [Z00.00] INVALID FOR*10/10/2016 More... Obstructive sleep apnea syndrome [G47.33] INVALID FOR*10/10/2016 More... Morbid obesity due to excess calories (HCC) [E6*INVALID FOR* Uncontrolled type 2 diabetes mellitus without c*INVALID FOR* Urinary frequency [R35.0] INVALID FOR*10/10/2016 Diabetic eye exam (HCC) [Z01.00, E11.9] INVALID FOR* More... 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 Incisional hernia [K43.2] INVALID FOR* More... Encounter Status:Closed by SHAWN OWENS on 08/29/18 PROGRESS Observed: 08/26/2018 Status: COMPLETED Source: [place] 5:54 PM [facility] [place] REPOSITORY HNO ID: [id number] Author: Ary Zuniga (Pa) Service: (none) Author Type: Physician Wine Manager Type: Progress Notes Filed: 08/29/2018 5:03 PM Note Text: FOLLOW UP VISIT - [facility]ERNIA [id number] DATE OF SERVICE: 08/26/2018 : 1975 REFERRING PHYSICIAN: Tomas Delgado MD Edd is a patient I am following with Dr. Avitia for an umbilical incisional hernia. Dr. Avitia performed a laparoscopic umbilical incisional hernia repair utilizing a Covidien Parietene DS 12 cm deering mesh on 08/14/18. The patient notes he had been doing well post-operatively with no concerns, then on 08/17/18 developed sudden-onset shortness of breath which was rapidly progressive, and presented to the emergency department at [facility] for evaluation. Patient's blood pressure was markedly elevated in the ED. Patient was diagnosed with acute hypoxic respiratory failure secondary to combination of flash pulmonary edema and suspected pneumonia. He was emergently intubated in the ED and admitted to the intensive care unit, was placed on antihypertensive therapy. Chest CT was negative for pulmonary embolus. Cardiology and pulmonology were consulted during patient's hospital stay. Patient was weaned off of vent on 08/18/18. Initial EKG was negative for acute changes, cardiac enzymes were followed in the hospital and were indeterminate. Patient had an echo which showed ejection fraction of 70% with normal left ventricular systolic function. He had a diagnostic heart catheterization which showed no abnormalities. Patient was discharged to home 08/21/18. Patient presents today with his mother for recheck. The patient currently notes no major complaints. He states his breathing is greatly improved and he denies any shortness of breath at this time. His appetite has been good. He denies any fever or chills. He does note some moderate incisional discomfort, particularly at the umbilical incision. Notes it is difficult to sleep at night due to discomfort with laying down. He notes no bulges at the operative site, but states his nurse at the hospital told him there was a visible bulge at the operative site at one point. Patient states he has been taking his medication regimen as instructed since his hospital discharge. They have been carefully monitoring his blood pressure at home and state the highest reading since discharge was 150/74. They have been recording the readings to bring to PCP appointment. Patient has follow-up appointment with Dr. Delgado tomorrow. Objective General: patient is alert, cooperative, pleasant and in no acute distress Heart RRR, normal S1/S2 Lungs CTA On examination, the abdomen is benign. The incisions are healing well without signs of infection or inflammation. +mild ecchymosis. There are no signs of recurrent hernia formation. Assessment IMPRESSION: status post umbilical incisional hernia repair and hospitalization for hypertensive emergency and flash pulmonary edema PLAN: If the patient notes any problems, he should contact me immediately. He may return to his regular activities as tolerated, with the exception of no lifting greater than 20 pounds for the next 7 weeks. He will remain off of work at this time, paperwork completed at this visit. Patient to return for re-evaluation early next week while Dr. Avitia in office. -Continue monitoring blood pressure at home -Follow up with PCP this week as scheduled -Reviewed importance of making sure to take deep breaths, patient notes had been sent home with incentive spirometer but lost this -Heating pad/warm compress for abdominal muscle discomfort Patient verbalized understanding of all above and agreed with the plan Diagnoses: (Z48.89) Aftercare following surgery (primary encounter diagnosis) (J81.0) Flash pulmonary edema (HCC) (I16.1) Hypertensive emergency (K43.2) Incisional hernia without obstruction or gangrene Ary Zuniga PA-C XR ANKLE 3V AP/LAT/OBL Observed: 08/26/2018 Status: F Source: [facility] 9:50 AM [facility] [place] REPOSITORY * * *Final Report* * * DATE OF EXAM: Aug 26 2018 9:50AM [id number] [id number] - XR ANKLE 3V AP/LAT/OBL AMOR / PROCEDURE REASON: multiple diagnoses * * * * Physician Interpretation * * * * HISTORY: 43-YEAR-OLD MALE WITH Pain in toe of left foot Pain in toe of right foot Pes cavus of right foot Pes cavus of left foot. Pt is diabetic, neuropathy. Pt denies any injury or pain. (accession [id number]), Pt is diabetic, Neuropathy. Denies injury or pain. Hx of right leg surgery 20 plus years ago. States kim goes to his knee. (accession [id number]) TECHNIQUE: XR FOOT 3V AP/LAT/OBL AMOR, XR ANKLE 3V AP/LAT/OBL AMOR Laterality: BILATERAL Number of different views (projections): 3 each COMPARISON: 01/25/2017 RESULT: Right ankle: There is an intramedullary nail in the distal tibial metadiaphysis with interlocking screws. The ankle mortise is maintained. Calcaneal enthesophyte insertion Achilles tendon and plantar fascia. Mild pes planus on the left. Arterial calcifications are present. No fracture. Left ankle: Ankle mortise is maintained. Calcaneal enthesophyte insertion Achilles tendon and plantar fascia. No fracture. Arterial calcifications are present. Right foot: Hallux valgus. Mild narrowing the first MTP joint. Narrowing of PIP and DIP joints. Mild narrowing of the navicular cuneiform articulation. Mild deformities of the second through fourth digits. Right foot is unchanged compared to previous exam. Left foot: Bipartite medial sesamoid first metatarsal. Hallux valgus. Narrowing the IP joint great toe. Narrowing of PIP joints of the second through fourth digits. No fractures. Extensive arterial calcification. IMPRESSION: NO ACUTE BONY ABNORMALITY. BILATERAL CALCANEAL ENTHESOPHYTE. MILD PES PLANUS ON LEFT. EXTENSIVE ARTERIAL CALCIFICATION. Production Control Clerk: LOLY Transcribe Date/Time: Aug 27 2018 10:08A Dictated by : AJIT HIGUERA MD This examination was interpreted and the report reviewed and electronically signed by: AJIT HIGUERA MD on Aug 27 2018 10:13AM EST [id number] XR FOOT 3V AP/LAT/OBL Observed: 08/26/2018 Status: F Source: [facility] 9:50 AM [facility] REPOSITORY * * *Final Report* * * DATE OF EXAM: Aug 26 2018 9:50AM [id number] [id number] - XR FOOT 3V AP/LAT/OBL AMOR / PROCEDURE REASON: multiple diagnoses * * * * Physician Interpretation * * * * HISTORY: 43-YEAR-OLD MALE WITH Pain in toe of left foot Pain in toe of right foot Pes cavus of right foot Pes cavus of left foot. Pt is diabetic, neuropathy. Pt denies any injury or pain. (accession [id number]), Pt is diabetic, Neuropathy. Denies injury or pain. Hx of right leg surgery 20 plus years ago. States kim goes to his knee. (accession [id number]) TECHNIQUE: XR FOOT 3V AP/LAT/OBL AMOR, XR ANKLE 3V AP/LAT/OBL AMOR Laterality: BILATERAL Number of different views (projections): 3 each COMPARISON: 01/25/2017 RESULT: Right ankle: There is an intramedullary nail in the distal tibial metadiaphysis with interlocking screws. The ankle mortise is maintained. Calcaneal enthesophyte insertion Achilles tendon and plantar fascia. Mild pes planus on the left. Arterial calcifications are present. No fracture. Left ankle: Ankle mortise is maintained. Calcaneal enthesophyte insertion Achilles tendon and plantar fascia. No fracture. Arterial calcifications are present. Right foot: Hallux valgus. Mild narrowing the first MTP joint. Narrowing of PIP and DIP joints. Mild narrowing of the navicular cuneiform articulation. Mild deformities of the second through fourth digits. Right foot is unchanged compared to previous exam. Left foot: Bipartite medial sesamoid first metatarsal. Hallux valgus. Narrowing the IP joint great toe. Narrowing of PIP joints of the second through fourth digits. No fractures. Extensive arterial calcification. IMPRESSION: NO ACUTE BONY ABNORMALITY. BILATERAL CALCANEAL ENTHESOPHYTE. MILD PES PLANUS ON LEFT. EXTENSIVE ARTERIAL CALCIFICATION. Production Control Clerk: PSCB Transcribe Date/Time: Aug 27 2018 10:08A Dictated by : AJIT HIGUERA MD This examination was interpreted and the report reviewed and electronically signed by: AJIT HIGUERA MD on Aug 27 2018 10:13AM EST [id number] Observed: 08/26/2018 Status: COMPLETED Source: [place] 9:24 AM [facility] REPOSITORY O ID: [id number] Author: Carrie Renee () Odalis Villanueva Service: (none) Author Type: [employer] Type: Progress Notes Filed: 08/26/2018 9:51 AM Note Text: Radiology Service Progress Note PATIENT NAME: Edd Dupont DATE OF SERVICE: August 26, 2018 TIME: 9:24 AM PATIENT IDENTITY VERIFICATION COMPLETED USING TWO (2) METHODS: Patient confirmed name verbally and Date of . PATIENT GENDER DATA: Male PATIENT RELEVANT IMPLANT DATA REVIEWED: Not Applicable RADIOLOGY DEPARTMENT: General X-ray: Exam(s) Completed: Lower Extremity X-Ray(s): Ankle, Bilateral and Wt. Bearing and Foot, Bilateral and Wt. Bearing: PERIPHERAL IV DATA: Not applicable SIGNED BY: RT Wiley August 26, 2018 9:24 AM CNOV Observed: 08/26/2018 Status: COMPLETED Source: [place] 8:30 AM [facility] REPOSITORY Office Visit (GENSWS) EDD DUPONT ([id number]) 1975 M Date Time Provider Department 08/26/18 8:30 AM ARY ZUNIGA (PA) During your visit today, we recorded the following information about you: Ary Zuniga PA-C 08/26/2018 8:58 AM Signed -Follow up next Sunday for recheck -Heating pad for incisional discomfort The following instructions are important for you related to your office visit today with the [facility]. INSTRUCTIONS FOLLOWING YOUR RECENT HERNIA SURGERY You should be returning to your regular diet, If you have having persistent issues with tolerating your diet, please contact our office It is not unusual to have incisional pain for the first 1- 2 weeks following surgery. If this persists beyond 2 weeks, contact the office You may remove your steri-strips after a shower. You may return to your regular activities. You may drive if you are no longer taking narcotic pain medication. Climbing stairs is fine. Walking in encouraged. Sitting up from bed may be uncomfortable. Sitting up using your lateral abdominal muscles (sitting up sideways) is usually more comfortable. You should perform no lifting greater than 20lbs for the next 6-7 weeks. Usually 8 weeks total from the date of surgery. It is not unusual to have loose stools following surgery. This is usually self limited and related to the antibiotics that were given during your surgical procedure. Fiber supplementation and yogurt with active cultures may help you return to regular bowel activity. If you note loose stools persisting for over 2 weeks, or significant cramping or loose bloody stools, contact the office immediately. Contact the office immediately if any of your incisions become increasingly tender, red or have drainage. Again, if you have any difficulties or concerns, contact our office immediately. If you note any additional difficulties, questions, or concerns, you should contact our office immediately @ [phone] and ask to be transferred to the General Surgery department. Ary Zuniga PA-C 08/29/2018 5:03 PM Signed FOLLOW UP VISIT - HERNIA NAME: Edd Longoria elianapawan [facility] NO.: [id number] DATE OF SERVICE: 08/26/2018 : 1975 REFERRING PHYSICIAN: Tomas Delgado MD Edd is a patient I am following with Dr. Avitia for an umbilical incisional hernia. Dr. Avitia performed a laparoscopic umbilical incisional hernia repair utilizing a Covidien Parietene DS 12 cm deering mesh on 08/14/18. The patient notes he had been doing well post-operatively with no concerns, then on 08/17/18 developed sudden-onset shortness of breath which was rapidly progressive, and presented to the emergency department at [facility] for evaluation. Patient's blood pressure was markedly elevated in the ED. Patient was diagnosed with acute hypoxic respiratory failure secondary to combination of flash pulmonary edema and suspected pneumonia. He was emergently intubated in the ED and admitted to the intensive care unit, was placed on antihypertensive therapy. Chest CT was negative for pulmonary embolus. Cardiology and pulmonology were consulted during patient's hospital stay. Patient was weaned off of vent on 08/18/18. Initial EKG was negative for acute changes, cardiac enzymes were followed in the hospital and were indeterminate. Patient had an echo which showed ejection fraction of 70% with normal left ventricular systolic function. He had a diagnostic heart catheterization which showed no abnormalities. Patient was discharged to home 08/21/18. Patient presents today with his mother for recheck. The patient currently notes no major complaints. He states his breathing is greatly improved and he denies any shortness of breath at this time. His appetite has been good. He denies any fever or chills. He does note some moderate incisional discomfort, particularly at the umbilical incision. Notes it is difficult to sleep at night due to discomfort with laying down. He notes no bulges at the operative site, but states his nurse at the hospital told him there was a visible bulge at the operative site at one point. Patient states he has been taking his medication regimen as instructed since his hospital discharge. They have been carefully monitoring his blood pressure at home and state the highest reading since discharge was 150/74. They have been recording the readings to bring to PCP appointment. Patient has follow-up appointment with Dr. Delgado tomorrow. Objective General: patient is alert, cooperative, pleasant and in no acute distress Heart RRR, normal S1/S2 Lungs CTA On examination, the abdomen is benign. The incisions are healing well without signs of infection or inflammation. +mild ecchymosis. There are no signs of recurrent hernia formation. Assessment IMPRESSION: status post umbilical incisional hernia repair and hospitalization for hypertensive emergency and flash pulmonary edema PLAN: If the patient notes any problems, he should contact me immediately. He may return to his regular activities as tolerated, with the exception of no lifting greater than 20 pounds for the next 7 weeks. He will remain off of work at this time, paperwork completed at this visit. Patient to return for re-evaluation early next week while Dr. Avitia in office. -Continue monitoring blood pressure at home -Follow up with PCP this week as scheduled -Reviewed importance of making sure to take deep breaths, patient notes had been sent home with incentive spirometer but lost this -Heating pad/warm compress for abdominal muscle discomfort Patient verbalized understanding of all above and agreed with the plan Diagnoses: (Z48.89) Aftercare following surgery (primary encounter diagnosis) (J81.0) Flash pulmonary edema (HCC) (I16.1) Hypertensive emergency (K43.2) Incisional hernia without obstruction or gangrene Ary Zuniga PA-C Referring Provider: TOMAS DELGADO [[id number]] Allergies As of Date: 08/26/2018 Noted Allergy Reaction CODEINE 01/12/2011 14 - Other: See Comments Comments: headache Date Reviewed: 08/26/2018 Reviewed by: Ary Zuniga (Pa) - Fully Assessed Reason for Visit: Post Op [174] Primary Visit Diagnosis:Aftercare following surgery [Z48.89] Other Visit Diagnoses:Flash pulmonary edema (HCC) [J81.0] Hypertensive emergency [I16.1] Incisional hernia without obstruction or gangrene [K43.2] Prescriptions as of 08/26/2018 Sig: ACETAMINOPHEN 500 MG TABLET 500-1000 mg every 6 hours as * AMMONIUM LACTATE 12 % TOPICAL* Apply 1 application to affect* ASPIRIN 81 MG TABLET,DELAYED * Take 1 tablet by mouth once d* ATORVASTATIN 80 MG TABLET Take 1 tablet by mouth once d* BLOOD SUGAR DIAGNOSTIC STRIPS Test glucose 1 x per day. Dx:* BLOOD-GLUCOSE METER KIT 1 Each as needed. COMPOUNDED PRESCRIPTION Knee High Compression Stockin* EZETIMIBE 10 MG TABLET Take 1 tablet by mouth once d* GABAPENTIN 100 MG CAPSULE Take 1 capsule by mouth three* LANCETS 28 GAUGE Test blood sugar(s) one times* LISINOPRIL 20 MG TABLET Take 1 tablet by mouth twice * METFORMIN ER 500 MG TABLET,EX* Take two tabs in AM and PM METOPROLOL TARTRATE 25 MG TAB* Take 1 tablet by mouth twice * SERTRALINE 50 MG TABLET Take 1.5 tablets by mouth onc* TRIAMCINOLONE ACETONIDE 0.5 %* Apply 1 application to affect* X FUROSEMIDE 40 MG TABLET Take 1 tablet by mouth once d* X FUROSEMIDE 40 MG TABLET DAILY X LISINOPRIL 20 MG TABLET TWICE A DAY X METOPROLOL TARTRATE 25 MG TAB* TWICE A DAY More... Problem List As Of Date 08/26/2018 Noted Resolved Psoriasis [L40.9] INVALID FOR* Essential hypertension, benign [I10] INVALID FOR* Mixed hyperlipidemia [E78.2] INVALID FOR* Bilateral leg edema [R60.0] INVALID FOR*10/10/2016 Well adult exam [Z00.00] INVALID FOR*10/10/2016 More... Obstructive sleep apnea syndrome [G47.33] INVALID FOR*10/10/2016 More... Morbid obesity due to excess calories (HCC) [E6*INVALID FOR* Uncontrolled type 2 diabetes mellitus without c*INVALID FOR* Urinary frequency [R35.0] INVALID FOR*10/10/2016 Diabetic eye exam (HCC) [Z01.00, E11.9] INVALID FOR* More... 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 Incisional hernia [K43.2] INVALID FOR* More... Other instructions from your clinician: -Follow up next Sunday for recheck -Heating pad for incisional discomfort The following instructions are important for you related to your office visit today with the [facility]. INSTRUCTIONS FOLLOWING YOUR RECENT HERNIA SURGERY You should be returning to your regular diet, If you have having persistent issues with tolerating your diet, please contact our office It is not unusual to have incisional pain for the first 1-2 weeks following surgery. If this persists beyond 2 weeks, contact the office You may remove your steri-strips after a shower. You may return to your regular activities. You may drive if you are no longer taking narcotic pain medication. Climbing stairs is fine. Walking in encouraged. Sitting up from bed may be uncomfortable. Sitting up using your lateral abdominal muscles (sitting up sideways) is usually more comfortable. You should perform no lifting greater than 20lbs for the next 6-7 weeks. Usually 8 weeks total from the date of surgery. It is not unusual to have loose stools following surgery. This is usually self limited and related to the antibiotics that were given during your surgical procedure. Fiber supplementation and yogurt with active cultures may help you return to regular bowel activity. If you note loose stools persisting for over 2 weeks, or significant cramping or loose bloody stools, contact the office immediately. Contact the office immediately if any of your incisions become increasingly tender, red or have drainage. Again, if you have any difficulties or concerns, contact our office immediately. If you note any additional difficulties, questions, or concerns, you should contact our office immediately @ [phone] and ask to be transferred to the General Surgery department. Follow-up and Disposition History Recorded Letter Text Department of General Surgery [address] [place], [place] [id number] 08/26/2018 TO WHOM IT MAY CONCERN: This is to certify that Edd Dupont has been under my care and was unable to attend work starting on 08/14/18. The patient should remain off of work at this time. He will return to our office on 09/03/18 for recheck to discuss possible return to work on Sunday09/04/18 with the following restrictions: no lifting greater than 20 lbs or excessive bending/twisting until 08/10/18, at which time patient may return to full duty. Sincerely yours, Ary Zuniga PA-C Encounter Status:Closed by ARY ZUNIGA PA-C on 08/29/18 12 LEAD ELECTROCARDIOGRAM Observed: 08/22/2018 Status: F Source: [place] 2:53 PM [facility] REPOSITORY [facility] Cardiovascular Services [address] [place] [address] 12 Lead EKG 08/19/18 0557 MR#: [id number] Acct: [id number] Name: EDD DUPONT Rep #: [id number] : 1975 43 From: Jeffrey Weldon MD Attending Dr: Sendy Lynch MD Status: DIS IN Ordering Dr: Jeffrey Weldon MD Date: 08/19/18 Location: [facility] Sex: M C Admitted: 08/17/18 Test Reason : MELA EKG Blood Pressure : / mmHG Vent. Rate : 101 BPM Atrial Rate : 101 BPM P-R Int : 134 ms QRS Dur : 116 ms QT Int : 386 ms P-R-T Axes : 033 063 051 degrees QTc Int : 500 ms Sinus tachycardia Incomplete right bundle branch block Confirmed by ERIN HARMON, JEFFREY ([id number]), editor at large JENNIFER MART ([id number]) on 08/22/2018 2:53:04 PM Referred By: TODD Confirmed By:JEFFREY WELDON MD 08/22/18 1453 Date Jeffrey Weldon MD CC: Sendy Lynch MD; Tomas Delgado MD; Jeffrey Weldon MD Signed PROGRESS Observed: 08/22/2018 Status: COMPLETED Source: [place] 12:42 PM [facility] RE[facility] HNO ID: [id number] Author: Carla (Rn) Miko Service: (none) Author Type: Registered Nurse Type: Progress Notes Filed: 08/22/2018 5:04 PM Note Text: TRANSITION CARE MANAGEMENT (TCM) INITIAL CONTACT Provider Action/FYI: PLEASE FILE MEDICATION UPDATES HCTZ D/C'd No LE swelling or SOB, occasional productive cough Pt is ambulating quite a bit since discharge, but had just been lying in bed after inguinal hernia repair. Mother states pt is scared because he was intubated. Pt willing to go for sleep study and try CPAP again Pt has been non-compliant with CPAP and needs to start the entire process of sleep study and titration over again TC to [facility], pt has not filled Zetia since 09/02. Instructed to call pt's mother regarding refill of medication TC from [place] from [facility], because there is a $20 copay for each visit pt is refusing nursing, PT and OT Discussed getting pt involved with [facility], nurse will discuss with Hernesto Frausto nurse instructed on home BP and when to call MD Noted pt was belching frequently during her visit Initial contact with patient post discharge, spoke to patient and mother. Patient identified by name and . TRANSITION CARE MANAGEMENT: Date of Outreach: 08/22/2018 Outreach Attempt 1: Contact Made Date of Discharge 08/21/2018 Some recent data might be hidden SUMMARY: -Pt discharged from [facility] on 08/21. -Follow up appointment on 08/27 w/ PCP. -Medication review done with mother, patient could not complete review by himself. -Admitted for: Hypertensive emergency (Acute) Flash pulmonary edema (Acute) S/P inguinal hernia repair (Acute) CONCERNS: See above NEW MEDICATIONS: Aspirin [Aspirin, Baby] 81 mg PO DAILY@0800 #30 tab.chew Furosemide [Lasix] 40 mg PO DAILY #30 tablet Lisinopril [Zestril] 20 mg PO BID #60 tablet Metoprolol Tartrate [Lopressor (beta shawn)] 25 mg PO BID #60 tablet MEDS HELD/DISCONTINUED: Hydrochlorothiazide 12.5 mg Take 1 capsule by mouth once daily. BRIEF HOSPITAL COURSE: Patient is a 43-year-old gentleman who underwent inguinal hernia repair on 08/14/2018 presented to the emergency department on 08/17/2018 with progressive shortness of breath and assessment of acute hypertensive crisis with flash pulmonary edema made patient admitted to the intensive care unit for subsequent management. 1. Acute hypoxic respiratory failure secondary to come the nation of flash pulmonary edema and suspected pneumonia; patient was emergently intubated in the ED upon arrival weaned off the vent on the morning of 08/18/2018 patient still remains dyspneic at rest plan is to encourage pulmonary toileting 2. Acute flash pulmonary edema possibly diastolic dysfunction from patient markedly elevated blood pressure on admission. Patient managed on Lasix 2D echo ordered for EF assessment; 2D echo demonstrated ejection of 70% consistent with acute diastolic dysfunction 3. Suspected community-acquired pneumonia: Secondary to viral pneumonia. Bacterial pneumonia was ruled out 4. Acute hypertensive crisis: Patient systolic blood pressure on admission was greater than 200 patient blood pressure has since improved 5. Elevated troponin secondary to type II non-ST MT from demand ischemia is discussed with Dr. Weldon patient underwent left heart catheterization on 08/20/2018 which failed to demonstrate any obstructive lesions. 6. Diabetes mellitus type II: patient's oral hypoglycemics held. Placed on long acting insulin, Accu-Cheks a.c. and at bedtime and covered with sliding scale insulin 7. Morbid obesity with BMI of 43.6 8. Status post left inguinal hernia repair on 08/14/[address] Avitia 9. DVT prophylaxis SC Alfredo Crouch RN PROGRESS Observed: 08/22/2018 Status: COMPLETED Source: [place] 12:39 PM [facility] [place] REPOSITORY HNO ID: [id number] Author: Carla (Rn) Miko Service: (none) Author Type: Registered Nurse Type: Progress Notes Filed: 08/22/2018 12:42 PM Note Text: PRIMARY CARE COORDINATION INTAKE Provider Action/FYI: Patient is slow learner Pt lives alone and has a job, doesn't drive Parents check on pt weekly and mother will pre-fill medications because they don't think pt was taking his meds Parents take patient to all appointments and help patient with writing bills and checkbook Mother is concerned because they are getting older and pt relies on them quite a bit Discussed having mother speak to SW for planning for assistance with patient as parents age, verbalized agreement Patient identified for Primary Care Coordination from: TCM Active Goals - Current status as of 08/22/2018 at 12:39 PM Most Recent - Address all appropriate HM and disease care gaps - Annual BMP - Annual foot exam - Annual microalbumin - Annual retina exam - Blood Pressure < 130/80 154/69 (08/14/2018) - Confirm medication adherence of all prescribed medications and uses them correctly - HBA1C drawn quarterly - Hemoglobin A1C < 7 8.2 (06/10/2018) - LDL at or below 100 mg/dL or on a high statin - Tobacco cessation - Understands and follows DASH diet - Weight mgmt/activity Health Maintenance Topics with due status: Overdue Topic Date Due BP CONTROLLED (<130/80) 02/22/1994 Care Coordination: General Care Coordination (since 05/24/2018) Determined High Risk due to High Risk chronic condition; Unplanned Hospitalization in the last 6 months; Polypharmacy ( > 7meds); Physical limitations Chronic High Risk conditions Hyperlipidemia; DM; Other (Enter Comment) (BAN) Assessment completed with Parent; Patient Living arrangement Alone Support system Family What is the health status of your caregiver? Good Are there others that you care for? No Type of residence Apartment Home care services Yes Have you had a safety assessment of your home? No Equipment used at home -- (non-compliant with CPAP in past) Do you have any assistive devices to help you communicate? No Communication Barriers Other (Enter Comment) Have you been in any hospital and/or ED outside the [facility] in the Past 6 months? Yes (Enter Comment) I feel financially burdened by my out of pocket expenses for my prescription medication Disagree completely Experiencing side effects from current medications No Difficulty keeping appointments No (Parents take pt to all appointments) Family aware of the patient's advance care planning wishes Yes Zoroastrian or spiritual beliefs that impact treatment No Chronic pain No Advance Directives discussion was initiated with the pt. The following actions were taken HCPOA completed and scanned Social Determinants: Education (since 05/24/2018) Who is providing Assessment Info? Caregiver What is the highest level of school you have completed? High school graduate Health Literacy (since 05/24/2018) How often do you need to have someone help you when you read instructions, pamphlets, or other written material from your doctor or pharmacy? 4 How confident are you filling out medical forms by yourself? 2 If patient scores >3 on either question, the following interventions were put into place Use of plain language and active listening with patient and family; teach back methods employed to ensure comprehension; use concrete and specific phrases ? avoid medical jargon How best do you like to receive information? Verbal Resource Strain (since 05/24/2018) In the last 12 months, did you ever eat less than you felt you should because there wasn?t enough money for food? No In the last 12 months, has your [employer] company shut off your service for not paying bills? No Are you worried that in the next 2 months, you may not have stable housing? No Do problems getting child, senior, or adult care make it difficult for you to work or study? No In the last 12 months, have you needed to see a doctor but could not because of cost? No Are you afraid you might be hurt in your apartment building or house? No If you answered ?yes? to any of the previous six questions, would you like to receive assistance with any of these needs? No Are any of your needs urgent? No Depression (since 05/24/2018) Over the past 2 weeks, how often have you felt little interest or pleasure in doing things? Not at all Over the past 2 weeks, how often have you felt down, depressed, or hopeless? Not at all Diet (since 05/24/2018) Diet: Diabetic diet; No Added Salt Physical Activity (since 05/24/2018) Physical Activity Currently not exercising Tobacco Use (since 05/24/2018) Tobacco Outreach Does not Use Tobacco Alcohol Use (since 05/24/2018) How often do you have a drink containing alcohol? Never Social Connection and Isolation (since 05/24/2018) Are you now , , , , never or living with a partner? In a typical week, how many times do you talk on the telephone with family, friends, or neighbors? More than 3 times per week How often do you get together with friends or relatives? 1 time per week Intimate Partner Violence (since 05/24/2018) Has there ever been a time that you had safety concerns? No Stress (since 05/24/2018) Do you feel stress - tense, restless, nervous, or anxious, or unable to sleep at night because your mind is troubled all the time - these days? Not at all Food Insecurity (since 05/24/2018) Within the past 12 months, you worried that your food would run out before you got money to buy more. Never true Within the past 12 months, the food you bought just didn't last and you didn't have money to get more. Never true Transportation Needs (since 05/24/2018) In the past 12 months, has lack of transportation kept you from medical appointments or from getting medications? No In the past 12 months, has lack of transportation kept you from meetings, work, or getting things needed for daily living? No Transportation means: Family Activities of Daily Living: Patients can perform the following activities without help: (since 05/24/2018) Dressing Yes Bathing Yes Doing laundry Yes Climbing a flight of stairs Yes Walking briskly Yes Instrumental activities of daily living (since 05/24/2018) Do you drive a car? No Do you need help from others to take care of things inside the house, for example: laundry, house cleaning, preparing meals? No Do you need help from others with errands outside the house, for example: shopping for groceries or clothes, going medical appointments? No Fall Risk: Fall Risk (since 05/24/2018) One or more falls in the last year: No Any near falls in the last year? No Advised to use a cane or walker to get around safely: Yes Feels unsteady when walking: No Steadies self on furniture while walking at home: No Worried about falling: No Needs to push with hands when rising from a chair: Yes Has trouble stepping up onto a curb: No Often has to cantor to the toilet: No Has lost some feeling in feet: No Takes medicine that makes him/her feel lightheaded or more tired than usual: No Takes medicine to sleep or improve mood: Yes Fall risk factors: Cognitive impairment Carla Crouch RN CNPTOUTREACH Observed: 08/22/2018 Status: COMPLETED Source: [place] 12:00 AM [facility] REPOSITORY Patient Outreach (FAMPWS) EDD DUPONT ([id number]) 1975 M Date Time Provider Department 08/22/18 CARLA CROUCH (LEEANNA) FAMPWS During your visit today, we recorded the following information about you: Carla Crouch RN 08/22/2018 12:42 PM Signed PRIMARY CARE COORDINATION INTAKE Provider Action/FYI: Patient is slow learner Pt lives alone and has a job, doesn't drive Parents check on pt weekly and mother will pre-fill medications because they don't think pt was taking his meds Parents take patient to all appointments and help patient with writing bills and checkbook Mother is concerned because they are getting older and pt relies on them quite a bit Discussed having mother speak to SW for planning for assistance with patient as parents age, verbalized agreement Patient identified for Primary Care Coordination from: TCM Active Goals - Current status as of 08/22/2018 at 12:39 PM Most Recent - Address all appropriate HM and disease care gaps - Annual BMP - Annual foot exam - Annual microalbumin - Annual retina exam - Blood Pressure < 130/80 154/69 (08/14/2018) - Confirm medication adherence of all prescribed medications and uses them correctly - HBA1C drawn quarterly - Hemoglobin A1C < 7 8.2 (06/10/2018) - LDL at or below 100 mg/dL or on a high statin - Tobacco cessation - Understands and follows DASH diet - Weight mgmt/activity Health Maintenance Topics with due status: Overdue Topic Date Due BP CONTROLLED (<130/80) 02/22/1994 Care Coordination: General Care Coordination (since 05/24/2018) Determined High Risk due to High Risk chronic condition; Unplanned Hospitalization in the last 6 months; Polypharmacy ( > 7meds); Physical limitations Chronic High Risk conditions Hyperlipidemia; DM; Other (Enter Comment) (BAN) Assessment completed with Parent; Patient Living arrangement Alone Support system Family What is the health status of your caregiver? Good Are there others that you care for? No Type of residence Apartment Home care services Yes Have you had a safety assessment of your home? No Equipment used at home -- (non-compliant with CPAP in past) Do you have any assistive devices to help you communicate? No Communication Barriers Other (Enter Comment) Have you been in any hospital and/or ED outside the [facility] in the Past 6 months? Yes (Enter Comment) I feel financially burdened by my out of pocket expenses for my prescription medication Disagree completely Experiencing side effects from current medications No Difficulty keeping appointments No (Parents take pt to all appointments) Family aware of the patient's advance care planning wishes Yes Zoroastrian or spiritual beliefs that impact treatment No Chronic pain No Advance Directives discussion was initiated with the pt. The following actions were taken HCPOA completed and scanned Social Determinants: Education (since 05/24/2018) Who is providing Assessment Info? Caregiver What is the highest level of school you have completed? High school graduate Health Literacy (since 05/24/2018) How often do you need to have someone help you when you read instructions, pamphlets, or other written material from your doctor or pharmacy? 4 How confident are you filling out medical forms by yourself? 2 If patient scores >3 on either question, the following interventions were put into place Use of plain language and active listening with patient and family; teach back methods employed to ensure comprehension; use concrete and specific phrases ? avoid medical jargon How best do you like to receive information? Verbal Resource Strain (since 05/24/2018) In the last 12 months, did you ever eat less than you felt you should because there wasn?t enough money for food? No In the last 12 months, has your [employer] shut off your service for not paying bills? No Are you worried that in the next 2 months, you may not have stable housing? No Do problems getting child, senior, or adult care make it difficult for you to work or study? No In the last 12 months, have you needed to see a doctor but could not because of cost? No Are you afraid you might be hurt in your apartment building or house? No If you answered ?yes? to any of the previous six questions, would you like to receive assistance with any of these needs? No Are any of your needs urgent? No Depression (since 05/24/2018) Over the past 2 weeks, how often have you felt little interest or pleasure in doing things? Not at all Over the past 2 weeks, how often have you felt down, depressed, or hopeless? Not at all Diet (since 05/24/2018) Diet: Diabetic diet; No Added Salt Physical Activity (since 05/24/2018) Physical Activity Currently not exercising Tobacco Use (since 05/24/2018) Tobacco Outreach Does not Use Tobacco Alcohol Use (since 05/24/2018) How often do you have a drink containing alcohol? Never Social Connection and Isolation (since 05/24/2018) Are you now , , , , never or living with a partner? In a typical week, how many times do you talk on the telephone with family, friends, or neighbors? More than 3 times per week How often do you get together with friends or relatives? 1 time per week Intimate Partner Violence (since 05/24/2018) Has there ever been a time that you had safety concerns? No Stress (since 05/24/2018) Do you feel stress - tense, restless, nervous, or anxious, or unable to sleep at night because your mind is troubled all the time - these days? Not at all Food Insecurity (since 05/24/2018) Within the past 12 months, you worried that your food would run out before you got money to buy more. Never true Within the past 12 months, the food you bought just didn't last and you didn't have money to get more. Never true Transportation Needs (since 05/24/2018) In the past 12 months, has lack of transportation kept you from medical appointments or from getting medications? No In the past 12 months, has lack of transportation kept you from meetings, work, or getting things needed for daily living? No Transportation means: Family Activities of Daily Living: Patients can perform the following activities without help: (since 05/24/2018) Dressing Yes Bathing Yes Doing laundry Yes Climbing a flight of stairs Yes Walking briskly Yes Instrumental activities of daily living (since 05/24/2018) Do you drive a car? No Do you need help from others to take care of things inside the house, for example: laundry, house cleaning, preparing meals? No Do you need help from others with errands outside the house, for example: shopping for groceries or clothes, going medical appointments? No Fall Risk: Fall Risk (since 05/24/2018) One or more falls in the last year: No Any near falls in the last year? No Advised to use a cane or walker to get around safely: Yes Feels unsteady when walking: No Steadies self on furniture while walking at home: No Worried about falling: No Needs to push with hands when rising from a chair: Yes Has trouble stepping up onto a curb: No Often has to cantor to the toilet: No Has lost some feeling in feet: No Takes medicine that makes him/her feel lightheaded or more tired than usual: No Takes medicine to sleep or improve mood: Yes Fall risk factors: Cognitive impairment Carla Crouch, RN Carla Crouch RN 08/22/2018 5:04 PM Addendum TRANSITION CARE MANAGEMENT (TCM) INITIAL CONTACT Provider Action/FYI: PLEASE FILE MEDICATION UPDATES HCTZ D/C'd No LE swelling or SOB, occasional productive cough Pt is ambulating quite a bit since discharge, but had just been lying in bed after inguinal hernia repair. Mother states pt is scared because he was intubated. Pt willing to go for sleep study and try CPAP again Pt has been non-compliant with CPAP and needs to start the entire process of sleep study and titration over again TC to [facility], pt has not filled Zetia since 09/02. Instructed to call pt's mother regarding refill of medication TC from [place] [facility], because there is a $20 copay for each visit pt is refusing nursing, PT and OT Discussed getting pt involved with [facility], nurse will discuss with Hernesto Frausto nurse instructed on home BP and when to call MD Noted pt was belching frequently during her visit Initial contact with patient post discharge, spoke to patient and mother. Patient identified by name and . TRANSITION CARE MANAGEMENT: Date of Outreach: 08/22/2018 Outreach Attempt 1: Contact Made Date of Discharge 08/21/2018 Some recent data might be hidden SUMMARY: -Pt discharged from [facility] on 08/21. -Follow up appointment on 08/27 w/ PCP. -Medication review done with mother, patient could not complete review by himself. -Admitted for: Hypertensive emergency (Acute) Flash pulmonary edema (Acute) S/P inguinal hernia repair (Acute) CONCERNS: See above NEW MEDICATIONS: Aspirin [Aspirin, Baby] 81 mg PO DAILY@0800 #30 tab.chew Furosemide [Lasix] 40 mg PO DAILY #30 tablet Lisinopril [Zestril] 20 mg PO BID #60 tablet Metoprolol Tartrate [Lopressor (beta shawn)] 25 mg PO BID #60 tablet MEDS HELD/DISCONTINUED: Hydrochlorothiazide 12.5 mg Take 1 capsule by mouth once daily. BRIEF HOSPITAL COURSE: Patient is a 43-year-old gentleman who underwent inguinal hernia repair on 08/14/2018 presented to the emergency department on 08/17/2018 with progressive shortness of breath and assessment of acute hypertensive crisis with flash pulmonary edema made patient admitted to the intensive care unit for subsequent management. 1. Acute hypoxic respiratory failure secondary to come the nation of flash pulmonary edema and suspected pneumonia; patient was emergently intubated in the ED upon arrival weaned off the vent on the morning of 08/18/2018 patient still remains dyspneic at rest plan is to encourage pulmonary toileting 2. Acute flash pulmonary edema possibly diastolic dysfunction from patient markedly elevated blood pressure on admission. Patient managed on Lasix 2D echo ordered for EF assessment; 2D echo demonstrated ejection of 70% consistent with acute diastolic dysfunction 3. Suspected community-acquired pneumonia: Secondary to viral pneumonia. Bacterial pneumonia was ruled out 4. Acute hypertensive crisis: Patient systolic blood pressure on admission was greater than 200 patient blood pressure has since improved 5. Elevated troponin secondary to type II non-ST MT from demand ischemia is discussed with Dr. Weldon patient underwent left heart catheterization on 08/20/2018 which failed to demonstrate any obstructive lesions. 6. Diabetes mellitus type II: patient's oral hypoglycemics held. Placed on long acting insulin, Accu-Cheks a.c. and at bedtime and covered with sliding scale insulin 7. Morbid obesity with BMI of 43.6 8. Status post left inguinal hernia repair on 08/14/[address] Avitia 9. DVT prophylaxis SC Radhax Carla Crouch RN Allergies As of Date: 08/22/2018 Noted Allergy Reaction CODEINE 01/12/2011 14 - Other: See Comments Comments: headache Date Reviewed: 08/14/2018 Reviewed by: [place] (Rn) LEEANNA Blevins - Fully Assessed Reason for Visit: Transition Of Care [4074] Primary Visit Diagnosis:Flash pulmonary edema (HCC) [J81.0] Other Visit Diagnoses:Essential hypertension, benign [I10] Hypertensive emergency [I16.1] Order(s):lisinopril (ZESTRIL, PRINIVIL) 20 mg tabletTake 1 tablet by mouth twice daily.Disp: Rfl: acetaminophen (TYLENOL EXTRA STRENGTH) 500 mg [id number] 1000 mg every 6 hours as needed for painDisp: Rfl: aspirin, enteric coated (ASPIRIN, ENTERIC COATED) 81 mg EC tabletTake 1 tablet by mouth once daily.Disp: Rfl: furosemide (LASIX) 40 mg tabletTake 1 tablet by mouth once daily.Disp: Rfl: metoprolol tartrate, short acting, (LOPRESSOR) 25 mg tabletTake 1 tablet by mouth twice daily.Disp: Rfl: Prescriptions as of 08/22/2018 Sig: GABAPENTIN 100 MG CAPSULE Take 1 capsule by mouth three* ATORVASTATIN 80 MG TABLET Take 1 tablet by mouth once d* AMMONIUM LACTATE 12 % TOPICAL* Apply 1 application to affect* TRIAMCINOLONE ACETONIDE 0.5 %* Apply 1 application to affect* SERTRALINE 50 MG TABLET Take 1.5 tablets by mouth onc* METFORMIN ER 500 MG TABLET,EX* Take two tabs in AM and PM LANCETS 28 GAUGE Test blood sugar(s) one times* BLOOD-GLUCOSE METER KIT 1 Each as needed. LISINOPRIL 20 MG TABLET Take 1 tablet by mouth twice * ACETAMINOPHEN 500 MG TABLET 500-1000 mg every 6 hours as * ASPIRIN 81 MG TABLET,DELAYED * Take 1 tablet by mouth once d* FUROSEMIDE 40 MG TABLET Take 1 tablet by mouth once d* METOPROLOL TARTRATE 25 MG TAB* Take 1 tablet by mouth twice * EZETIMIBE 10 MG TABLET Take 1 tablet by mouth once d* BLOOD SUGAR DIAGNOSTIC STRIPS Test glucose 1 x per day. Dx:* COMPOUNDED PRESCRIPTION Knee High Compression Stockin* Medication notes this encounter HYDROCHLOROTHIAZIDE 12.5 MG CAPSULE >> Carla Crouch RN 08/22/2018 12:00 PM >> CARLA CROUCH Josette Aug 22, 2018 12:[address] [facility] 08/21 >> Tomas Delgado MD 08/23/2018 7:07 AM during hospital stay 08/2018 More... Problem List As Of Date 08/22/2018 Noted Resolved Psoriasis [L40.9] INVALID FOR* Essential hypertension, benign [I10] INVALID FOR* Mixed hyperlipidemia [E78.2] INVALID FOR* Bilateral leg edema [R60.0] INVALID FOR*10/10/2016 Well adult exam [Z00.00] INVALID FOR*10/10/2016 More... Obstructive sleep apnea syndrome [G47.33] INVALID FOR*10/10/2016 More... Morbid obesity due to excess calories (HCC) [E6*INVALID FOR* Uncontrolled type 2 diabetes mellitus without c*INVALID FOR* Urinary frequency [R35.0] INVALID FOR*10/10/2016 Diabetic eye exam (HCC) [Z01.00, E11.9] INVALID FOR* More... 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 Incisional hernia [K43.2] INVALID FOR* More... Prescriptions ordered this encounter Disp Refills Start End LISINOPRIL 20 MG TABLET 08/23/2018 Class: Med Update Route: ORAL Sig: Take 1 tablet by mouth twice daily. ACETAMINOPHEN 500 MG TABLET 08/23/2018 Class: Med Update Si-1000 mg every 6 hours as needed for pain ASPIRIN 81 MG TABLET,DELAYED RELEASE 08/23/2018 Class: Med Update Route: ORAL Sig: Take 1 tablet by mouth once daily. FUROSEMIDE 40 MG TABLET 08/23/2018 Class: Med Update Route: ORAL Sig: Take 1 tablet by mouth once daily. METOPROLOL TARTRATE 25 MG TABLET 08/23/2018 Class: Med Update Route: ORAL Sig: Take 1 tablet by mouth twice daily. Medications Discontinued During This Encounter lisinopril (ZESTRIL, PRINIVIL) 20 mg* 90 t* 1 06/18/2018 08/23/2018 Route: ORAL Sig: Take 1 tablet by mouth once daily. Disc: Reason for discontinue is not on file. Hydrochlorothiazide 12.5 mg capsule 30 c* 3 07/30/2018 08/23/2018 Route: ORAL Sig: Take 1 capsule by mouth once daily. Disc: Discontinued by another Health Care Provider Encounter Status:Closed by TOMAS DELGADO on 08/23/18 PROGRESS Observed: 08/21/2018 Status: COMPLETED Source: [place] 1:47 PM [facility] RE[facility] HNO ID: [id number] Author: Carla (Rn) Miko Service: (none) Author Type: Registered Nurse Type: Progress Notes Filed: 08/21/2018 4:38 PM Note Text: PRIMARY CARE COORDINATION FOLLOW-UP NOTE Provider Action/FYI FYI Patient being discharged today. CM from [facility] called P[facility] will call for TCM within 2 days Patient identified by name and date of . YES Spoke to [facility] [place] Cristin SALCEDO Summary: Pt had hernia repair several weeks ago and was admitted to [facility] [place] with respiratory failure. Patient will be discharged today and hospitalist wants pt to use CPAP. Pt had CPAP but was non-compliant so he has to start the process over to have a sleep study and have [facility] approve test and CPAP. Pt is now agreeable to CPAP. CM feels it is due to pt being intubated and he is scared. Pt doesn't have a strip catcher. Pt is staying with parents currently. States pt went home after hernia surgery and laid on the couch without moving. CM is unsure about patient's level of health literacy [employer] plan for next outreach: Will follow up in 2 days Signature Carla Crouch RN August 21, 2018 DISCHARGE SUMMARY Observed: 08/21/2018 Status: F Source: [place] 11:31 AM [facility] REPOSITORY [facility] Medical Records Department [address] [place] [address] Discharge Summary 08/21/18 1129 MR#: [id number] Acct: [id number] Name: EDD DUPONT Rep #: [id number] : 1975 43 From: Sendy Lynch MD PCP: Sendy Orellana DO Status: ADM IN Y Location: [place] [address] Discharge Date and Diagnosis - Problem List Patient Problems: Active and Suspected Problems Hypertensive emergency (Acute) Flash pulmonary edema (Acute) S/P inguinal hernia repair (Acute) Date of Admission: 08/17/18 Date of Discharge: 08/21/18 - Primary Discharge Diagnosis Active and Suspected Problems Hypertensive emergency (Acute) Flash pulmonary edema (Acute) S/P inguinal hernia repair (Acute) - Secondary Discharge Diagnosis Chronic Problems Borderline diabetes (Chronic) Hyperlipidemia (Chronic) Obesity (Chronic) Benign essential HTN (Chronic) Hospital Course and Treatment Imaging Results: Clinical Impression(s) from Imaging Studies Chest X-Ray 08/17/18 13:58 IMPRESSION: Low lung volumes. Grossly clear lungs. Electronically Signed: Edd Roth, at 14:26 EST Tel , Service support , Chest CTA 08/17/18 14:07 IMPRESSION: No large central pulmonary embolism. Extensive multi focal lung disease. Leading differential considerations are infectious disease and pulmonary edema. N.B. : The above information has been verbally conveyed by Pillo Streeter MD to MORENA Wheeler, on 08/17/2018 15:49:36 (ET). Electronically Signed: Pillo Streeter MD at 14:54 EST Tel , Service support , ADDENDUM: 08/17/18 1607 Chest X-Ray 08/17/18 14:55 IMPRESSION: The endotracheal tube is high and should be advanced at least 6 cm. The tube is now nearly 11 cm above the sameera and above the clavicles. Consider edema and/or diffuse atypical infiltrates. N.B. : The above information has been verbally conveyed by [place] Flores MD to DR ANA MATOS MD, on 08/17/2018 15:54:30 (ET). Electronically Signed: [place] Flores MD at 15:43 EST Tel , Service support , KUB X-Ray 08/17/18 17:24 IMPRESSION: Tip of orogastric tube projected over the duodenal bulb. Electronically Signed: Bart Cervantes MD at 20:14 EST , Service support , Operations: None Summary of Care Provided: Patient is a 43-year-old gentleman who underwent inguinal hernia repair on 08/14/2018 presented to the emergency department on 08/17/2018 with progressive shortness of breath and assessment of acute hypertensive crisis with flash pulmonary edema made patient admitted to the intensive care unit for subsequent management. 1. Acute hypoxic respiratory failure secondary to come the [place] of flash pulmonary edema and suspected pneumonia; patient was emergently intubated in the ED upon arrival weaned off the vent on the morning of 08/18/2018 patient still remains dyspneic at rest plan is to encourage pulmonary toileting 2. Acute flash pulmonary edema possibly diastolic dysfunction from patient markedly elevated blood pressure on admission. Patient managed on Lasix 2D echo ordered for EF assessment; 2D echo demonstrated ejection of 70% consistent with acute diastolic dysfunction 3. Suspected community-acquired pneumonia: Secondary to viral pneumonia. Bacterial pneumonia was ruled out 4. Acute hypertensive crisis: Patient systolic blood pressure on admission was greater than 200 patient blood pressure has since improved 5. Elevated troponin secondary to type II non-ST MT from demand ischemia is discussed with Dr. Weldon patient underwent left heart catheterization on 08/20/2018 which failed to demonstrate any obstructive lesions. 6. Diabetes mellitus type II: patient's oral hypoglycemics held. Placed on long acting insulin, Accu-Cheks a.c. and at bedtime and covered with sliding scale insulin 7. Morbid obesity with BMI of 43.6 8. Status post left inguinal hernia repair on 08/14/[address] Avitia 9. DVT prophylaxis SC Bronwynnox Patient Problems: Active and Suspected Problems Hypertensive emergency (Acute) Flash pulmonary edema (Acute) S/P inguinal hernia repair (Acute) - Physical Exam General: Oriented x3 HEENT: Atraumatic Neck: Supple Lungs: Diminished Cardiovascular: Regular rate, Regular Rhythm Neurological: Neuro grossly intact Psych/Mental Status: Appropriate Vital Signs Temp Pulse Resp BP Pulse Ox 97.0 F L 76 18 134/65 H 98 08/21/18 09:30 08/21/18 09:30 08/21/18 09:30 08/21/18 09:30 08/21/18 09:30 Oxygen Flow Rate (L/min) 3 Oxygen Delivery Method Room Air Weight: 141.4 kg Body Mass Index (BMI) 43.4 Finger Stick Blood Glucose 174 Intake and Output for Last 24 Hours Intake Total 1352 / 1352 1097 / 1097 430 / 430 Output Total 4050 / 4050 600 / 600 500 / 500 Balance -2698 / -2698 497 / 497 -70 / -70 Microbiology Past 72 Hours 08/17/18 15:48 Blood Culture - Preliminary Laboratory Tests Past 24 Hrs WBC 5.8 RBC 3.53 L Hgb 11.6 L Hct 35.3 L MCV 100.0 H Discharge Diet: 1800 Calorie Control Diet Discharge Activity: May not drive while taking narcotic pain medications. Home Medications: Medications to take at Discharge Acetaminophen [Tylenol] 500 - 1,000 mg PO Q6H PRN PRN 02/13/17 Atorvastatin Calcium [Lipitor] 20 mg PO QHS 02/13/17 Metformin HCl [Metformin HCl ER] 500 mg PO BID 02/13/17 Oxycodone [Oxyir] 5 mg PO Q4H PRN PRN #30 tablet 02/19/17 Aspirin [Aspirin, Baby] 81 mg PO DAILY@0800 #30 tab.chew 08/21/18 Furosemide [Lasix] 40 mg PO DAILY #30 tablet 08/21/18 Lisinopril [Zestril] 20 mg PO BID #60 tablet 08/21/18 Metoprolol Tartrate [Lopressor (beta shawn)] 25 mg PO BID #60 tablet 12/05/18 Following Prescrptions Were Given to Patient: Aspirin [Aspirin, Baby] 81 mg PO DAILY@0800 #30 tab.chew Furosemide [Lasix] 40 mg PO DAILY #30 tablet Lisinopril [Zestril] 20 mg PO BID #60 tablet Metoprolol Tartrate [Lopressor (beta shawn)] 25 mg PO BID #60 tablet Primary Care Physician: Sendy Orellana DO [Primary Care Provider] - Please follow up with your Primary Care Physician in: in 5- 7 days Please Follow Up With: Delmi Avitia MD When: as scheduled Disposition: Home with Home Health Minutes spent on discharge:: 42 Patient Condition:: Stable Medical Necessity - Tobacco Use Smoking Status: Former smoker Meaningful Use Info Meaningful Use Diagnoses (Choose all that apply): CHF - CHF KIMO/ARB ordered at discharge?: Yes Documented LVEF (%): 70 Code Visit Inpatient E AND M: 05488 Disch Hosp 08/21/18 1131 <Electronically signed by Sendy Lynch MD> Date Sendy Lynch MD Cosigner Signature (if applicable): Date CC: Sendy Orellana DO; Sendy Lynch MD Signed DISCHARGE INSTRUCTION Observed: 08/21/2018 Status: F Source: [place] 11:23 AM [facility] REPOSITORY [facility] Medical Records Department [address] [place] [address] Instructions for Home/Discharge Instructions 08/21/18 1122 MR#: [id number] Acct: [id number] Name: EDD DUPONT Rep #: [id number] : 1975 43 From: Sendy Lynch MD PCP: Sendy Orellana DO Status: ADM IN - Discharge Diagnoses Current Active Problems: Current Active and Chronic Problems Hypertensive emergency (Acute) Flash pulmonary edema (Acute) S/P inguinal hernia repair (Acute) You will use the following diet at home:: No restrictions Discharge Activity: May not drive while taking narcotic pain medications. Allergies/Adverse Reactions: Allergies codeine Adverse Reaction (Verified 08/17/18 14:02) Other Medications to take at Discharge Acetaminophen [Tylenol] 500 - 1,000 mg PO Q6H PRN PRN 02/13/17 Atorvastatin Calcium [Lipitor] 20 mg PO QHS 02/13/17 Metformin HCl [Metformin HCl ER] 500 mg PO BID 02/13/17 Oxycodone [Oxyir] 5 mg PO Q4H PRN PRN #30 tablet 02/19/17 Aspirin [Aspirin, Baby] 81 mg PO DAILY@0800 #30 tab.chew 08/21/18 Furosemide [Lasix] 40 mg PO DAILY #30 tablet 08/21/18 Lisinopril [Zestril] 20 mg PO BID #60 tablet 08/21/18 Metoprolol Tartrate [Lopressor (beta shawn)] 25 mg PO BID #60 tablet 08/21/18 The following prescriptions were given: Aspirin [Aspirin, Baby] 81 mg PO DAILY@0800 #30 tab.chew Furosemide [Lasix] 40 mg PO DAILY #30 tablet Lisinopril [Zestril] 20 mg PO BID #60 tablet Metoprolol Tartrate [Lopressor (beta shawn)] 25 mg PO BID #60 tablet Primary Care Physician: Sendy Orellana DO [Primary Care Provider] - Please follow up with your Primary Care Physician in: in 5- 7 days Test Results: Test results from this visit will be discussed in further detail at your follow-up appointment, if applicable. Please Follow Up With: Delmi Avitia MD When: as scheduled Proposed Discharge Date: 08/21/18 08/21/18 1123 <Electronically signed by Sendy Lynch MD> Date Sendy Lynch MD CC: Oscar Santiago MD; Sendy Orellana DO; Jeffrey Weldon MD CBC-COMPLETE BLOOD CNT Collected: 08/21/2018 Status: F Source: [place] NO DIFF 5:50 AM [facility] REPOSITORY TYPE CODE TESTS RESULT OUT OF RANGE REFERENCE UNITS LAB L100.1000 4.4-11.0 K/mm3 Normal WBC 5.8 LAB L100.1200 4.6-6.2 M/mm3 Low RBC 3.53 LAB L100.1300 13.0-16.5 g/dl Low HGB 11.6 LAB L100.1400 40-54 % Low HCT 35.3 LAB L100.1500 80-94 fL High MCV 100.0 LAB L100.1600 27.0-32.0 pg High MCH 32.9 LAB L100.1700 32-36 g/gl Normal MCHC 32.9 LAB L100.1810 11.6-14.6 % Normal RDW CV 13.5 LAB L100.1820 35.1-43.9 fl High RDW SD 48.0 LAB L100.1900 150-450 K/mm3 Low PLT 149 LAB L100.2000 6.2-12.0 fl Normal MPV 11.4 Performed By: #### L100.0500 #### [facility] [address] [place], [place], [address] BASIC METABOLIC Collected: 08/21/2018 Status: F Source: ETNA PROFILE (BMP) 5:50 AM [facility] REPOSITORY TYPE CODE TESTS RESULT OUT OF RANGE REFERENCE UNITS LAB L501.0100 74-106 mg/dL High GLU 158 Result Comment: Fasting Glucose result greater than or equal to 126 mg/dL suggests DIABETES MELLITUS per A.D.A. criteria. Please note revised GLUCOSE reference range effective 2017. LAB L501.1000 7-18 mg/dL High BUN 25 LAB L501.1100 0.70-1.30 mg/dL Low CREAT,SERUM 0.65 Result Comment: The validity of the calculated GFR AND GFRAA in patients over 70 years has not been determined. Clinical correlation is essential. LAB L501.1110 >60 mL/min Normal EST GFR 144 Result Comment: Non- GFR Calc LAB L501.1115 >60 mL/min Normal EST GFR - AA 174 Result Comment: GFR Calc LAB L501.1255 ml/min Normal Estimated CRCL 157.68 LAB L501.1300 10-20 RATIO High BUN/CRE 38.7 LAB L501.2200 8.5-10 mg/dL Low .1 CA 8.3 LAB L501.5300 136-14 mmol/L 5 NA Normal 145 LAB L501.5600 3.5-5. mmol/L 1 K Normal 4.4 LAB L501.5900 98-107 mmol/L High CL 110 LAB L501.6100 21.0-3 mmol/L 2.0 CO2 Normal 31.0 LAB L501.6200 5-15 Low GAP 4 Performed By: #### L500.2500 #### [facility] [address] [place], [address] CNPTOUTREA Observed: 08/21/2018 Status: COMPLETED Source: [place] 12:00 AM [facility] REPOSITORY Patient Outreach (FAMPWS) EDD DUPONT ([id number]) 1975 M Date Time Provider Department 08/21/18 CARLA CROUCH (RN) FAMPWS During your visit today, we recorded the following information about you: Carla Crouch RN 08/21/2018 4:38 PM Addendum PRIMARY CARE COORDINATION FOLLOW-UP NOTE Provider Action/FYI FYI Patient being discharged today. CM from [facility] [place] called PCC will call for TCM within 2 days Patient identified by name and date of . YES Spoke to [facility] [place] Cristin SALCEDO Summary: Pt had hernia repair several weeks ago and was admitted to [facility] [place] with respiratory failure. Patient will be discharged today and hospitalist wants pt to use CPAP. Pt had CPAP but was non-compliant so he has to start the process over to have a sleep study and have [facility] approve test and CPAP. Pt is now agreeable to CPAP. CM feels it is due to pt being intubated and he is scared. Pt doesn't have a strip catcher. Pt is staying with parents currently. States pt went home after hernia surgery and laid on the couch without moving. CM is unsure about patient's level of health literacy [employer] plan for next outreach: Will follow up in 2 days Signature Carla Crouch RN August 21, 2018 Allergies As of Date: 08/21/2018 Noted Allergy Reaction CODEINE 01/12/2011 14 - Other: See Comments Comments: headache Date Reviewed: 08/14/2018 Reviewed by: [place] (Rn) LEEANNA Blevins - Fully Assessed Reason for Visit: Transition Of Care [4074] Prescriptions as of 08/21/2018 Sig: OXYCODONE-ACETAMINOPHEN 5 MG-* Take 1 tablet by mouth every * HYDROCHLOROTHIAZIDE 12.5 MG C* Take 1 capsule by mouth once * GABAPENTIN 100 MG CAPSULE Take 1 capsule by mouth three* ATORVASTATIN 80 MG TABLET Take 1 tablet by mouth once d* AMMONIUM LACTATE 12 % TOPICAL* Apply 1 application to affect* TRIAMCINOLONE ACETONIDE 0.5 %* Apply 1 application to affect* SERTRALINE 50 MG TABLET Take 1.5 tablets by mouth onc* METFORMIN ER 500 MG TABLET,EX* Take two tabs in AM and PM LISINOPRIL 20 MG TABLET Take 1 tablet by mouth once d* EZETIMIBE 10 MG TABLET Take 1 tablet by mouth once d* BLOOD SUGAR DIAGNOSTIC STRIPS Test glucose 1 x per day. Dx:* LANCETS 28 GAUGE Test blood sugar(s) one times* BLOOD-GLUCOSE METER KIT 1 Each as needed. COMPOUNDED PRESCRIPTION Knee High Compression Stockin* More... Problem List As Of Date 08/21/2018 Noted Resolved Psoriasis [L40.9] INVALID FOR* Essential hypertension, benign [I10] INVALID FOR* Mixed hyperlipidemia [E78.2] INVALID FOR* Bilateral leg edema [R60.0] INVALID FOR*10/10/2016 Well adult exam [Z00.00] INVALID FOR*10/10/2016 More... Obstructive sleep apnea syndrome [G47.33] INVALID FOR*10/10/2016 More... Morbid obesity due to excess calories (HCC) [E6*INVALID FOR* Uncontrolled type 2 diabetes mellitus without c*INVALID FOR* Urinary frequency [R35.0] INVALID FOR*10/10/2016 Diabetic eye exam (HCC) [Z01.00, E11.9] INVALID FOR* More... 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 Incisional hernia [K43.2] INVALID FOR* More... Encounter Status:Closed by CARLA CROUCH on 08/22/18 12 LEAD ELECTROCARDIOGRAM Observed: 08/20/2018 Status: F Source: [place] 2:26 PM [facility] REPOSITORY [facility] Cardiovascular Services [address] [address] 12 Lead EKG 08/17/18 1355 MR#: [id number] Acct: [id number] Name: EDD DUPONT Rep #: [id number] : 1975 43 From: Jeffrey Weldon MD Attending Dr: Sendy Lynch MD Status: ADM IN Ordering Dr: Joel Barrow MD Date: 08/17/18 Location: ICU Sex: M C Admitted: 08/17/18 Test Reason : SOB Blood Pressure : / mmHG Vent. Rate : 091 BPM Atrial Rate : 091 BPM P-R Int : 124 ms QRS Dur : 110 ms QT Int : 368 ms P-R-T Axes : 026 073 052 degrees QTc Int : 452 ms Normal sinus rhythm Normal ECG Confirmed by ERIN HARMON, JEFFREY ([id number]), editor at large JENNIFER MART ([id number]) on 08/20/2018 2:25:32 PM Referred By: DC Confirmed By:JEFFREY WELDON MD 08/20/18 1425 Date Jeffrey Weldon MD CC: Joel Barrow MD; Sendy Orellana DO; Sendy Lynch MD Signed CBC-COMPLETE BLOOD CNT Collected: 08/20/2018 Status: F Source: [place] NO DIFF 4:05 AM [facility] REPOSITORY TYPE CODE TESTS RESULT OUT OF RANGE REFERENCE UNITS LAB L100.1000 4.4-11.0 K/mm3 Normal WBC 6.4 LAB L100.1200 4.6-6.2 M/mm3 Low RBC 3.59 LAB L100.1300 13.0-16.5 g/dl Low HGB 11.9 LAB L100.1400 40-54 % Low HCT 35.4 LAB L100.1500 80-94 fL High MCV 98.6 LAB L100.1600 27.0-32.0 pg High MCH 33.1 LAB L100.1700 32-36 g/gl Normal MCHC 33.6 LAB L100.1810 11.6-14.6 % Normal RDW CV 13.5 LAB L100.1820 35.1-43.9 fl High RDW SD 47.0 LAB L100.1900 150-450 K/mm3 Low PLT 128 LAB L100.2000 6.2-12.0 fl Normal MPV 11.8 Performed By: #### L100.0500 #### [facility] [address] [place], [address] BASIC METABOLIC Collected: 08/20/2018 Status: F Source: ETNA PROFILE (BMP) 4:05 AM [facility] REPOSITORY TYPE CODE TESTS RESULT OUT OF RANGE REFERENCE UNITS LAB L501.0100 74-106 mg/dL High GLU 140 Result Comment: Fasting Glucose result greater than or equal to 126 mg/dL suggests DIABETES MELLITUS per A.D.A. criteria. Please note revised GLUCOSE reference range effective 2017. LAB L501.1000 7-18 mg/dL High BUN 19 LAB L501.1100 0.70-1.30 mg/dL Low CREAT,SERUM 0.51 Result Comment: The validity of the calculated GFR AND GFRAA in patients over 70 years has not been determined. Clinical correlation is essential. LAB L501.1110 >60 mL/min Normal EST GFR 187 Result Comment: Non- GFR Calc LAB L501.1115 >60 mL/min Normal EST GFR - AA 227 Result Comment: GFR Calc LAB L501.1255 ml/min Normal Estimated CRCL 200.96 LAB L501.1300 10-20 RATIO High BUN/CRE 37.0 LAB L501.2200 8.5-10 mg/dL Low .1 CA 8.2 LAB L501.5300 136-14 mmol/L 5 NA Normal 144 LAB L501.5600 3.5-5. mmol/L 1 K Normal 4.4 LAB L501.5900 98-107 mmol/L CL Normal 107 LAB L501.6100 21.0-3 mmol/L 2.0 CO2 Normal 30.0 LAB L501.6200 5-15 GAP Normal 7 Performed By: #### L500.2500 #### [facility] [address] [place], [address] ECHO, COMPLETE W/ Observed: 08/19/2018 Status: F Source: ETNA CONTRAST 12:46 PM [facility] REPOSITORY [facility] Cardiovascular Services [address] [place] [address] Echo Complete W/ Contrast 08/19/18 0832 MR#: [id number] Acct: [id number] Name: EDD DUPONT Rep #: [id number] : 1975 43 From: Jeffrey Weldon MD Attending Dr: Sendy Lynch MD Status: ADM IN Ordering Dr: Aurelio Felton DO Date: 08/17/18 Location: ICU Sex: M C Admitted: 08/17/18 Reason For Study: HYPERTENSION Procedure This was a 2D Doppler, Color Flow transthoracic echocardiogram. The study was technically difficult. Contrast injection was performed. Exam performed portable in ICU/CCU. Left Ventricle Normal LV size. Left ventricular systolic function is normal. The estimated ejection fraction is 70 %. Unable to assess diastolic dysfunction. No regional wall motion abnormalities noted. Right Ventricle Normal RV size. Normal systolic function. Atria The left atrium is mildly enlarged. Normal right atrium. No doppler evidence for ASD. Mitral Valve There is no mitral annular calcification. Normal mitral valve. Trivial mitral valve insufficiency. Tricuspid Valve Normal tricuspid valve. Trivial tricuspid valve insufficiency. Right ventricular systolic pressure estimated to be 28 mmHg. Aortic Valve Trisinus/trileaflet aortic valve. Mild focal aortic valve thickening. Pulmonic Valve The pulmonic valve is not well visualized. Great Vessels Normal sized aortic root. Pericardium/Pleural No pericardial effusion. Medication Diluted definity 2ml given slow IV push to enhance endocardial definition. MMode/2D Measurements AND Calculations LVIDd: 4.4 cm IVSd: 1.1 cm Ao root diam: 3.2 cm LVIDs: 2.6 cm LVPWd: 1.3 cm FS: 41.4 % LVAd ap4: 47.7 cm2 SV(MOD-sp4): 143.4 ml SV(sp4-el): 150.7 ml EDV(MOD-sp4): 204.0 ml EDV(sp4-el): 212.5 ml LVAs ap4: 22.6 cm2 ESV(MOD-sp4): 60.6 ml ESV(sp4-el): 61.8 ml EF(MOD-sp4): 70.3 % EF(sp4-el): 70.9 % LA dimension(2D): 3.6 cm Doppler Measurements AND Calculations MV E max jessica: 87.9 cm/sec Ao V2 max: 183.4 cm/sec LV V1 max: 130.5 cm/sec MV A max jessica: 88.7 cm/sec Ao max P.5 mmHg LV V1 max P.8 mmHg MV E/A: 0.99 PA V2 max: 184.5 cm/sec TR max jessica: 250.3 cm/sec TR max P.1 mmHg Interpretation Summary The study was technically difficult. Contrast injection was performed. Left ventricular systolic function is normal. The estimated ejection fraction is 70 %. The left atrium is mildly enlarged. Trivial mitral valve insufficiency. Trivial tricuspid valve insufficiency. Mild focal aortic valve thickening. Right ventricular systolic pressure estimated to be 28 mmHg. Unable to assess diastolic dysfunction. Ordering Physician: Aurelio Felton Referring Physician: SENDY ORELLANA Performed By: Sugey Garcias, ANEGLICA 08/19/18 1245 Date Jeffrey Weldon MD CC: Sendy Orellana DO; Sendy Lynch MD; Aurelio Felton DO Date Dictated: 08/19/1832 Date Transcribed: 08/19/181244 Production Control Clerk: Signed CBC-COMPLETE BLOOD CNT Collected: 08/19/2018 Status: F Source: [place] NO DIFF 8:38 AM [facility] REPOSITORY TYPE CODE TESTS RESULT OUT OF RANGE REFERENCE UNITS LAB L100.1000 4.4-11.0 K/mm3 Normal WBC 6.4 LAB L100.1200 4.6-6.2 M/mm3 Low RBC 3.78 LAB L100.1300 13.0-16.5 g/dl Low HGB 12.4 LAB L100.1400 40-54 % Low HCT 37.4 LAB L100.1500 80-94 fL High MCV 98.9 LAB L100.1600 27.0-32.0 pg High MCH 32.8 LAB L100.1700 32-36 g/gl Normal MCHC 33.2 LAB L100.1810 11.6-14.6 % Normal RDW CV 14.0 LAB L100.1820 35.1-43.9 fl High RDW SD 49.3 LAB L100.1900 150-450 K/mm3 Low PLT 127 LAB L100.2000 6.2-12.0 fl Normal MPV 11.6 Performed By: #### L100.0500 #### [facility] [address] [place], [address] CONSULTATION Observed: 08/19/2018 Status: F Source: ETNA 6:54 AM [facility] REPOSITORY [facility] Medical Records Department [address] [place] [address] Consultation 08/18/18 0645 MR#: [id number] Acct: [id number] Name: EDD DUPONT Rep #: [id number] : 1975 43 From: Yuri Wang DO PCP: Sendy Orellana DO Status: ADM IN Y Location: ICU ICU04-1 Reason for Consult Date of Consultation: 08/18/18 Reason for Consultation: Respiratory failure History of Present Illness: The patient is a 43-year-old male, with a history as outlined below, who presented to the emergency department on August 17 with complaints of shortness of breath and productive cough. The patient had a recent laparoscopic hernia repair approximately [address] Avitia. The patient's operative course was noted to be uncomplicated. On presentation to the emergency department, the patient was noted to be afebrile but profoundly hypertensive with a blood pressure documented to be 232/83. He was initially hypoxic on room air. Laboratory evaluation revealed elevated white blood cell count to 17,000. Coags were within normal limits. Chemistry profile was largely unremarkable. Serum lactate was within normal limits. Initial troponin was negative. A CTA chest was obtained which revealed limited enhancement of the bilateral peripheral pulmonary arteries. Bilateral groundglass opacities were noted, along with incidental finding of splenomegaly, splenic varices and paraesophageal varices. The patient did require emergent intubation in the emergency department due to hypoxic respiratory failure. The patient was given a large dose of IV Lasix, 80 mg. The patient was also started on Levaquin and IV nitroglycerin. The patient was noted to drop his blood pressure upon receiving the aforementioned medications. He received a normal saline bolus and was subsequently transferred to the medical intensive care unit. Due to concerns for potential drug interaction, the patient's Levaquin was discontinued. He was then started on azithromycin and ceftriaxone. Past Medical History Past Medical History (Chronic Problems): Chronic Problems Borderline diabetes (Chronic) Hyperlipidemia (Chronic) Obesity (Chronic) Benign essential HTN (Chronic) Allergies codeine Adverse Reaction (Verified 08/17/18 14:02) Other Home Medications: Ambulatory Orders Medication Instructions Recorded Lisinopril [Zestril] 20 mg PO DAILY #30 tablet 02/13/15 Acetaminophen [Tylenol] 500 - 1,000 mg PO Q6H PRN PRN 02/13/17 Surgical History: herniorrhaphy, - - He has had a fracture of the distal RLE in the past and has rods and screws. Psychiatric History: No pertinent psych hx Smoking Status: Former smoker Alcohol: None Drugs: None - *Family History Maternal History Items: High Cholesterol, Hypertension Paternal History Items: High Cholesterol, Hypertension Review of Systems Unable to obtain accurate/complete ROS d/t: Current intubation and mechanical ventilation status Patient Problems: Active and Suspected Problems Hypertensive emergency (Acute) Flash pulmonary edema (Acute) S/P inguinal hernia repair (Acute) Objective: The patient's most recent lab work, culture data and imaging studies have all been personally reviewed. Strep and urine Legionella antigens were both negative. Blood, urine and sputum cultures are pending. - Physical Exam General: - - Intubated, sedated and mechanically ventilated. Morbidly obese. HEENT: Atraumatic, PERRLA, Normocephalic Oral: No Gingival or Mucosal Lesions/ Ulcerations, - - Endotracheal and OG tubes in place. Neck: Supple, No Nodes, Trachea Midline Lungs: No rhonchi, No wheeze, No rales, Diminished Cardiovascular: Regular rate, Regular Rhythm, Normal S1, Normal S2, No murmurs Abdomen: Bowel Sounds Present, Soft, Non Tender, Obese Extremities: No clubbing, No cyanosis, No edema Skin: - - Left-sided pretibial erythema Musculoskeletal: No Muscle Wasting Lymphatic: No Cervical, Supraclavicular, or Inguinal Adenopathy Neurological: - - No focal neurological deficits. Currently sedated with a RASS of -1. Vital Signs Temp Pulse Resp BP Pulse Ox 37.2 C 73 16 124/57 H 97 08/18/18 06:00 08/18/18 06:00 08/18/18 06:00 08/18/18 06:00 08/18/18 06:00 Oxygen Flow Rate (L/min) 15 Oxygen Delivery Method Mechanical Ventilator Weight: 316 lb 2.286 oz Body Mass Index (BMI) 43.4 Finger Stick Blood Glucose 174 Intake and Output for Last 24 Hours Intake Total 1966 / 1966 407 / 407 Output Total 830 / 830 300 / 300 Balance 1137 / 1137 107 / 107 Microbiology Past 72 Hours 08/17/18 17:30 Legionella Antigen - Final Urine Catheter - Catheter 08/17/18 17:30 Streptococcus pneumoniae Antigen (M - Final Urine Catheter - Catheter Laboratory Tests Past 24 Hrs WBC RBC Hgb WBC Pending POC Glucose POC Glucose 132 H 206 H Clinical Impression(s) from Imaging Studies Chest X-Ray 08/17/18 13:58 IMPRESSION: Low lung volumes. Grossly clear lungs. Electronically Signed: Edd Roth, at 14:26 EST Tel , Service support , Chest CTA 08/17/18 14:07 IMPRESSION: No large central pulmonary embolism. Extensive multi focal lung disease. Leading differential considerations are infectious disease and pulmonary edema. N.B. : The above information has been verbally conveyed by Pillo Streeter MD to MORENA Wheeler, on 08/17/2018 15:49:36 (ET). Electronically Signed: Pillo Streeter MD at 14:54 EST Tel , Service support , ADDENDUM: 08/17/18 1607 Chest X-Ray 08/17/18 14:55 IMPRESSION: The endotracheal tube is high and should be advanced at least 6 cm. The tube is now nearly 11 cm above the sameera and above the clavicles. Consider edema and/or diffuse atypical infiltrates. N.B. : The above information has been verbally conveyed by Indiana Flores MD to DR ANA MATOS MD, on 08/17/2018 15:54:30 (ET). Electronically Signed: Indiana Flores MD at 15:43 EST Tel , Service support , KUB X-Ray 08/17/18 17:24 IMPRESSION: Tip of orogastric tube projected over the duodenal bulb. Electronically Signed: Bart Cervantes MD at 20:14 EST , Service support , Assessment/Plan Active and Suspected Problems Hypertensive emergency (Acute) Flash pulmonary edema (Acute) S/P inguinal hernia repair (Acute) RECOMMENDATIONS: 1. Wean FiO2 and PEEP as tolerated to maintain an oxygen saturation at or above 90%. 2. Continue antihypertensive regimen per cardiology recommendations. 3. Await surface echocardiogram. 4. Continue antibiotics for an additional 24 hours, pending finalized infectious workup. 5. Plan for daily paired spontaneous awakening and breathing trials beginning tomorrow morning. 6. Start tube feeds today and initiate Accu-Cheks and sliding scale insulin coverage. 7. Continue Lovenox and Pepcid for prophylaxis. IMPRESSIONS: 1. Acute hypoxemic respiratory failure with concern for flash pulmonary edema The patient initially presented to the hospital with hypertensive emergency and what appeared to be flash pulmonary edema, necessitating emergent intubation. His hemodynamics have improved and his ventilator requirements are minimal. Low clinical index of suspicion for underlying pulmonary infectious process, however, the patient will be continued on antibiotics pending finalized infectious workup. Continue to wean FiO2 and PEEP as tolerated to maintain an oxygen saturation at or above 90%. Okay to begin tube feeds today. Plan for daily paired spontaneous awakening and breathing trials beginning tomorrow. Continue antihypertensives per cardiology recommendations. 2. Hypertensive emergency The patient's hemodynamics have stabilized since his initial admission. He is no longer requiring a nitro infusion. Continue antihypertensive regimen per cardiology recommendations. Wean sedation as tolerated. 3. Troponin elevation Likely secondary to demand ischemia in the setting of the above. However, cardiology is following so will defer management to them accordingly. Surface echocardiogram is currently pending. 4. Morbid obesity/hypertension/hyperlipidemia/diabetes Complicates care, management, recovery and prognosis. Hold metformin and initiate Accu-Cheks and sliding scale insulin coverage. Okay to start tube feeds today from my perspective. TIME: 45 minutes of critical care time, independent of procedures, was spent addressing the patient's acute hypoxemic respiratory failure, hypertensive emergency, troponin elevation, review of all data and collaboration with the care team. ([id number]) Code Visit 9xxxx: [id number] Critical care first hour 08/19/18 0654 <Electronically signed by Yuri Wang DO> Date Yuri Wang DO Cosigner Signature (if applicable): Date CC: Oscar Santiago MD; Sendy Orellana DO; Jeffrey Weldon MD Signed BEDSIDE GLUCOSE Collected: 08/19/2018 Status: F Source: ANDREW 5:51 AM [facility] REPOSITORY TYPE CODE TESTS RESULT OUT OF REFERENCE UNITS RANGE LAB L501.080 70-110 mg/dL High BEDSIDE GLU 169 Result Comment: MANAGEMENT OF PATIENT CARE PER NURSING PROTOCOL Performed By: #### L501.080 #### [facility] Laboratory Point of Care [address] [place], [place] [id number] TROPONIN-I Collected: 08/19/2018 Status: F Source: ETNA 5:10 AM [facility] REPOSITORY Order Comment: 'TROP' Serial specimen #1, #2 or #3: 1 TYPE CODE TESTS RESULT OUT OF RANGE REFERENCE UNITS LAB L501.4010 <0.045 ng/mL High 0.229 TROPONIN-I Result Comment: TROPONIN-I EXPECTED VALUES <0.045 Negative 0.045 - 0.590 Consistent with Cardiac Damage > OR = 0.600 Critical Value Not every elevated troponin is indicative of MT. These values should be used with clinical judgement in examining the patient's clinical picture for diagnosis. To establish a diagnosis of MT versus myocardial injury, there must be a demonstrated rise and/or fall in the troponin values, in addition to ischemic symptoms, EKG changes, new regional wall motion abnormality, and/or angiographical evidence. PLEASE NOTE: REFERENCE RANGES EDITED 18 Performed By: #### L501.4010 #### [facility] [address] [place], [address] BASIC METABOLIC Collected: 08/19/2018 Status: F Source: ANDREW PROFILE (BMP) 5:10 AM [facility] REPOSITORY TYPE CODE TESTS RESULT OUT OF RANGE REFERENCE UNITS LAB L501.0100 74-106 mg/dL High GLU 170 Result Comment: Fasting Glucose result greater than or equal to 126 mg/dL suggests DIABETES MELLITUS per A.D.A. criteria. Please note revised GLUCOSE reference range effective 2017. LAB L501.1000 7-18 mg/dL High BUN 33 LAB L501.1100 0.70-1.30 mg/dL Normal CREAT,SERUM 0.84 Result Comment: The validity of the calculated GFR AND GFRAA in patients over 70 years has not been determined. Clinical correlation is essential. LAB L501.1110 >60 mL/min Normal EST GFR 107 Result Comment: Non- GFR Calc LAB L501.1115 >60 mL/min Normal EST GFR - AA 130 Result Comment: GFR Calc LAB L501.1255 ml/min Normal Estimated CRCL 122.01 LAB L501.1300 10-20 RATIO High BUN/CRE 39.5 LAB L501.2200 8.5-10 mg/dL Low .1 CA 7.9 LAB L501.5300 136-14 mmol/L 5 NA Normal 140 LAB L501.5600 3.5-5. mmol/L 1 K Normal 4.5 LAB L501.5900 98-107 mmol/L CL Normal 107 LAB L501.6100 21.0-3 mmol/L 2.0 CO2 Normal 24.0 LAB L501.6200 5-15 GAP Normal 9 Performed By: #### L500.2500, L501.5200 #### [facility] [address] [place], [place], [id number] MAGNESIUM Collected: 08/19/2018 Status: F Source: ETNA 5:10 AM [facility] REPOSITORY TYPE CODE TESTS RESULT OUT OF RANGE REFERENCE UNITS LAB L501.5200 1.6-2.6 mg/dL Normal MG 2.3 Performed By: #### L500.2500, L501.5200 #### [facility] [address] [place], [address] LIVER PROFILE Collected: 08/19/2018 Status: F Source: ETNA 5:10 AM [facility] REPOSITORY Order Comment: Comments: add to AM labs Comments: add to AM labs TYPE CODE TESTS RESULT OUT OF RANGE REFERENCE UNITS LAB L501.1500 6.4-8.2 g/dL Normal T PROT 7.2 LAB L501.1800 3.2-5.0 g/dL Low ALB 2.5 LAB L501.1950 2.2-4.2 g/dL High GLOB 4.7 LAB L501.4100 15-37 U/L High AST 102 LAB L501.4305 45-117 U/L Normal ALK P 116 LAB L501.4405 16-61 U/L Normal ALT 52 LAB L501.4600 0.20-1.00 mg/dL Normal T BILI 0.70 LAB L501.4700 0.00-0.30 mg/dL High D BILI 0.38 Performed By: #### L500.3400, L500.4100 #### [facility] [address] [place], [address] LIPID PROFILE Collected: 08/19/2018 Status: F Source: ANDREW 5:10 AM [facility] REPOSITORY Order Comment: Comments: add to AM labs Comments: add to AM labs TYPE CODE TESTS RESULT OUT OF RANGE REFERENCE UNITS LAB L501.4900 200 mg/dL Normal CHOL 135 Result Comment: <200 mg/dL Desirable 200-240 mg/dL Borderline >240 mg/dL High Risk LAB L501.5000 mg/dL High TRIG 203 Result Comment: The drugs N-Acetylcysteine and Metamizole may falsely depress this assay. Serum Triglycerides Reference Interval Normal <150 mg/dL Borderline high 150 - 199 mg/dL High 200 - 499 mg/dL Very High > or = 500 mg/dL LAB L501.6400 mg/dL Low HDL 26 Result Comment: The drugs N-Acetylcysteine and Metamizole may falsely depress this assay. Reference Range HDL <40 mg/dL Low HDL Cholesterol HDL >or= 60 mg/dL High HDL Cholesterol LAB L501.6500 0-130 mg/dL Normal LDL 68 LAB L501.6600 5-40 mg/dL High VLDL 41 Performed By: #### L500.3400, L500.4100 #### [facility] [address] [place], [address] BEDSIDE GLUCOSE Collected: 08/18/2018 Status: F Source: ANDREW 11:48 PM [facility] REPOSITORY TYPE CODE TESTS RESULT OUT OF REFERENCE UNITS RANGE LAB L501.080 70-110 mg/dL High BEDSIDE GLU 162 Result Comment: MANAGEMENT OF PATIENT CARE PER NURSING PROTOCOL Performed By: #### L501.080 #### [facility] Point of Care [address] [place] [address] BEDSIDE GLUCOSE Collected: 08/18/2018 Status: F Source: ETNA 6:09 PM [facility] REPOSITORY TYPE CODE TESTS RESULT OUT OF REFERENCE UNITS RANGE LAB L501.080 70-110 mg/dL High BEDSIDE GLU 135 Result Comment: MANAGEMENT OF PATIENT CARE PER NURSING PROTOCOL Performed By: #### L501.080 #### [facility] Point of Care [address] [place] [address] TROPONIN-I Collected: 08/18/2018 Status: F Source: ETNA 12:50 PM [facility] REPOSITORY Order Comment: 'TROP' Serial specimen #1, #2 or #3: 3 TYPE CODE TESTS RESULT OUT OF RANGE REFERENCE UNITS LAB L501.4010 <0.045 ng/mL High 0.506 TROPONIN-I Result Comment: TROPONIN-I EXPECTED VALUES <0.045 Negative 0.045 - 0.590 Consistent with Cardiac Damage > OR = 0.600 Critical Value Not every elevated troponin is indicative of MT. These values should be used with clinical judgement in examining the patient's clinical picture for diagnosis. To establish a diagnosis of MT versus myocardial injury, there must be a demonstrated rise and/or fall in the troponin values, in addition to ischemic symptoms, EKG changes, new regional wall motion abnormality, and/or angiographical evidence. PLEASE NOTE: REFERENCE RANGES EDITED 18 Performed By: #### L501.4010 #### [facility] [address], [address] CONSULTATION Observed: 08/18/2018 Status: F Source: ETNA 12:44 PM [facility] REPOSITORY [facility] Medical Records Department [address] [place] [address] Consultation 08/17/18 1602 MR#: [id number] Acct: [id number] Name: EDD DUPONT Rep #: [id number] : 1975 43 From: Jeffrey Weldon MD PCP: Sendy Orellana DO Status: ADM IN Y Location: ICU ICU04-1 Problem List (1) Hypertensive emergency Status: Acute (2) Flash pulmonary edema Status: Acute (3) Hyperlipidemia Status: Chronic (4) Borderline diabetes Status: Chronic (5) Obesity Status: Chronic (6) S/P inguinal hernia repair Status: Acute Reason for Consult Date of Consultation: 08/17/18 History of Present Illness: The patient is a 43 year old white male with a history of hyperlipidemia, hypertension, diabetes mellitus, obesity, status post recent right inguinal hernia repair who is referred for evaluation of a hypertensive emergency and subsequent flash pulmonary edema. The patient recently underwent right inguinal hernia repair without apparent complication. According to his family members he was noted to be having a cough but no definitive etiology. They note that today he was coughing, complained of being short of breath, and had nausea. They state he had not been complaining of any chest discomfort, there was no report of emesis, there was no report of near syncope or syncope. Explain his symptoms he was separately brought to and evaluated by the [facility] emergency department staff. He was found to be markedly hypertensive with systolic blood pressure in excess of 200 mmHg and found to have marked hypoxia. He subsequently required mechanical intubation/ventilation. He was placed on additional antihypertensive therapy with IV nitroglycerin. He underwent laboratory studies which demonstrated a negative troponin I level and a negative BNP. His ECG demonstrated sinus rhythm with no acute ECG changes. He also underwent a chest CT scan which suggested possible infiltrates versus increased pulmonary vascularity and per preliminary radiology report no definitive pulmonary emboli. Cardiology was consulted to evaluate the patient. Additional evaluation was performed with a bedside hand-held portable transthoracic echocardiographic device which demonstrated a technically difficult and diminished quality study thought secondary to patient's body habitus and underlying pulmonary disease process, however, based upon the 2D echo cardiographic images obtained there appeared to be grossly normal right and left ventricular systolic function. The patient was subsequently treated with additional medical therapy with IV diuretics. He was recommended for ICU evaluation and care. Of note, based upon a conversation with the patient's mother, she states she is not clear he has been taking his medications, including his antihypertensive therapy, as recommended. She notes his antihypertensive therapy has recently been adjusted by his PCP to try and bring his blood pressure under better control. [] Past Medical History Allergies/Adverse Reactions: Allergies codeine Adverse Reaction (Verified 08/17/18 14:02) Other Home Medications: Ambulatory Orders Medication Instructions Recorded Lisinopril [Zestril] 20 mg PO DAILY #30 tablet 02/13/15 Acetaminophen [Tylenol] 500 - 1,000 mg PO Q6H PRN PRN 02/13/17 Past Medical History (Chronic Problems): Chronic Problems Borderline diabetes (Chronic) Hyperlipidemia (Chronic) Obesity (Chronic) Benign essential HTN (Chronic) Surgical History: herniorrhaphy, - - He has had a fracture of the distal RLE in the past and has rods and screws. Psychiatric History: No pertinent psych hx - *Family History Maternal History Items: High Cholesterol, Hypertension Paternal History Items: High Cholesterol, Hypertension Smoking Status: Former smoker Alcohol: None Drugs: None Review of Systems - Review of Systems General: Denies: Fever, Night Sweats, Fatigue Cardiovascular: Reports: Shortness of Breath. Denies: Chest Discomfort, Orthopnea, PND, Peripheral Edema, Palpitations, Lightheadedness, Dizziness, Near Syncope, Syncope Respiratory: Reports: Cough, Shortness of Breath. Denies: Hemoptysis Gastrointestinal: Reports: Nausea. Denies: Hematemesis, Hematochezia, Melena Genitourinary: Denies: Dysuria, Hematuria Skin: Denies: Rash Subjectve: This is a 43-year-old white male who is currently mechanically intubated, ventilated, and sedated. Of note his endotracheal tube does demonstrate what appears to be a pink frothy sputum present. Objective: Vital Signs Temp Pulse Resp BP Pulse Ox 99.9 F H 88 19 H 131/51 H 94 08/17/18 15:33 08/17/18 15:33 08/17/18 15:33 08/17/18 15:33 08/17/18 15:33 Oxygen Flow Rate (L/min) 15 Oxygen Delivery Method Mechanical Ventilator Weight: 310 lb 3.046 oz Body Mass Index (BMI) 43.2 Finger Stick Blood Glucose 174 Intake and Output for Last 24 Hours Output Total Balance - / - General: Obese HEENT: Atraumatic, Normocephalic Lungs: Rhonchi Cardiovascular: Regular Rhythm, Normal S1, Normal S2 Vascular: No Carotid Bruits Abdomen: Bowel Sounds Present, Soft Extremities: No edema 08/17/18 13:54: WBC 16.8 H, RBC 4.76, Hgb 15.6, Hct 45.2, MCV 95.0 H, MCH 32.8 H, MCHC 34.5, RDW 13.3, RDW Differential 44.4 H, Plt Count 206, MPV 12.2 H, Immature Gran % (Auto) 0.300, Neut % (Auto) 93.3 H, Lymph % (Auto) 4.2 L, Todd % (Auto) 1.7, Eos % (Auto) 0.4, Baso % (Auto) 0.1, Absolute Neuts (auto) 15.6 H, Total Counted Not Reportable 08/17/18 13:54: PT 14.7, INR 1.2, APTT 28.2 08/17/18 13:54: Sodium 137, Potassium 3.9, Chloride 103, Carbon Dioxide 25.0, Anion Gap 9, BUN 15, Creatinine 0.72, Est GFR (MDRD) Af Amer 154, Est GFR (MDRD) Non-Af 127, BUN/Creatinine Ratio 20.8 H, Glucose 211 H, Calcium 8.7, Troponin I 0.019 08/17/18 13:54: B-Natriuretic Peptide 38.8 Rhythm: Sinus rhythm EKG: As noted above ECHO: As noted above Chest CT Scan: Please see official report Assessment/Plan 1. Hypertensive emergency The patient presented with a systolic blood pressure in excess of 200 mmHg. This was associated with concerns of pulmonary edema and hypoxia. At the present time the patient is currently mechanically intubated, ventilated, and sedated. The patient has been placed on IV nitroglycerin and his systolic blood pressure appears to be decreasing. The patient is also receiving IV diuretic therapy and attempt to improve his underlying pulmonary edema process. The patient will need continued ICU monitoring. His vital signs be monitored. He will need continued medical therapy as deemed appropriate to maintain adequate blood pressure control. 2. Flash pulmonary edema The patient presents with a scenario compatible with underlying flash pulmonary edema possibly secondary to his marked hypertension. At the present time his initial cardiac enzymes are negative. His initial ECG demonstrates no acute ECG changes. His chest CT scan was reported by radiology as demonstrating no definitive pulmonary embolus, however, it appears that this was a diminished quality chest CT scan. At the present time the patient is mechanically intubated, ventilated, sedated. He has been requiring FiO2 requirements of 100%. He will continue antihypertensive therapy. He will continue diuretic therapy. Hopefully with diuresis and improvement in his underlying pulmonary process his O2 acquired which will decrease in his O2 saturation will increase and eventually he will be able to be extubated. During this time he will continue to be monitored. His cardiac enzymes and ECG can be followed. A formal echocardiogram will be requested for further evaluation care. Hopefully with improvement in his pulmonary disease process his echocardiographic image quality may improve as well. Same time, based on his chest CT scan, underlying separate pulmonary infiltrates cannot be excluded on his clinical scenario objective findings he can be further evaluated and treated as deemed appropriate for a possible pulmonary infection disease issue as well. 3. Hyperlipidemia He will continue medical management as deemed appropriate. 4. Diabetes mellitus He will continue under the care of internal medicine for this. 5. Obesity The patient is unfortunately overweight/obese. This does make it challenging with respect to performing and interpreting diagnostic imaging studies, etc. Hopefully, as the patient recuperates from his event, in the future, he can bring his weight under better control. 6. Status post right inguinal hernia repair He can be further evaluated by internal medicine and/or general surgery as deemed appropriate for this. Comment: The patient's case has been discussed and reviewed with the patient, his mother, [facility] [place] emergency department staff, and the [facility] [place] hospitalist staff. This note was generated using a voice recognition system and there may be incorrect words, spelling or punctuation that were not noted when reviewing the office note prior to saving. 08/18/18 1244 <Electronically signed by Jeffrey Weldon MD> Date Jeffrey Weldon MD Cosigner Signature (if applicable): Date CC: Oscar Santiago MD; Sendy Orellana DO; Jeffrey Weldon MD; Delmi Avitia MD Signed BEDSIDE GLUCOSE Collected: 08/18/2018 Status: F Source: ANDREW 12:23 PM [facility] REPOSITORY TYPE CODE TESTS RESULT OUT OF REFERENCE UNITS RANGE LAB L501.080 70-110 mg/dL High BEDSIDE GLU 125 Result Comment: MANAGEMENT OF PATIENT CARE PER NURSING PROTOCOL Performed By: #### L501.080 #### [facility] Point of Care [address] [place], [place] [address] TROPONIN-I Collected: 08/18/2018 Status: F Source: ETNA 8:22 AM [facility] REPOSITORY Order Comment: 'TROP' Serial specimen #1, #2 or #3: 2 TYPE CODE TESTS RESULT OUT OF RANGE REFERENCE UNITS LAB L501.4010 <0.045 ng/mL High 0.485 TROPONIN-I Result Comment: TROPONIN-I EXPECTED VALUES <0.045 Negative 0.045 - 0.590 Consistent with Cardiac Damage > OR = 0.600 Critical Value Not every elevated troponin is indicative of MT. These values should be used with clinical judgement in examining the patient's clinical picture for diagnosis. To establish a diagnosis of MT versus myocardial injury, there must be a demonstrated rise and/or fall in the troponin values, in addition to ischemic symptoms, EKG changes, new regional wall motion abnormality, and/or angiographical evidence. PLEASE NOTE: REFERENCE RANGES EDITED 18 Performed By: #### L501.4010 #### [facility] [address] [place] [address] [address] [place], [place], [address] BASIC METABOLIC Collected: 08/18/2018 Status: F Source: ANDREW PROFILE ([facility]) 8:22 AM [facility] REPOSITORY TYPE CODE TESTS RESULT OUT OF RANGE REFERENCE UNITS LAB L501.0100 74-106 mg/dL Normal GLU 101 Result Comment: Fasting Glucose result from 100 to 125 mg/dL suggests IMPAIRED HOMEOSTASIS per A.D.A. criteria. Please note revised GLUCOSE reference range effective 2017. LAB L501.1000 7-18 mg/dL High BUN 20 LAB L501.1100 0.70-1.30 mg/dL Low CREAT,SERUM 0.69 Result Comment: The validity of the calculated GFR AND GFRAA in patients over 70 years has not been determined. Clinical correlation is essential. LAB L501.1110 >60 mL/min Normal EST GFR 133 Result Comment: Non- GFR Calc LAB L501.1115 >60 mL/min Normal EST GFR - AA 161 Result Comment: GFR Calc LAB L501.1255 ml/min Normal Estimated CRCL 148.54 LAB L501.1300 10-20 RATIO High BUN/CRE 29.0 LAB L501.2200 8.5-10 mg/dL Low .1 CA alert 5.7 Result Comment: Critical Result(s) Called at: 09:23:00 08/18/2018 by: Rqoue Dale to Oscar DURÁN LAB L501.5300 136-145 mmol/L High NA 146 LAB L501.5600 3.5-5.1 mmol/L Normal K 3.6 LAB L501.5900 98-107 mmol/L High CL 116 LAB L501.6100 21.0-32.0 mmol/L Normal CO2 21.0 LAB L501.6200 5-15 Normal 9 GAP Performed By: #### L500.2500 #### [facility] [address] [place], [place], [address] Observed: 08/18/2018 Status: F Source: ETNA RESPIRATORY PANEL 7:35 AM [facility] MOLECULAR REPOSITORY Order Date: 08/18/18 RP PANEL RESULTS CALLED TO Thelma CHURCH 08/18/18 1053 Vani Pineda. REPORT READ BACK BY POONAM. Copy of report sent to Infection Control Printer MS#[id number] 08/18/18 1053 FERNANDO. Normal Reference Range = Not Detected ADENOVIRUS Not Detected HUMAN METAPHNEUMO Not Detected INFLUENZA A Not Detected INFLUENZA A (SUBTYPE H1) Not Detected INFLUENZA A (SUBTYPE H3) Not Detected INFLUENZA B Not Detected PARAINFLUENZA 1 Not Detected PARAINFLUENZA 2 Not Detected PARAINFLUENZA 3 Not Detected PARAINFLUENZA 4 Not Detected RHINOVIRUS Positive for RHINOVIRUS by NAAT technology RSV A Not Detected RSV B Not Detected NAAT METHOD Testing was performed using nucleic acid amplification Performed By: #### M100.638 #### [facility] [address] [place], [place], [address] BEDSIDE GLUCOSE Collected: 08/18/2018 Status: F Source: ETNA 5:52 AM [facility] REPOSITORY TYPE CODE TESTS RESULT OUT OF REFERENCE UNITS RANGE LAB L501.080 70-110 mg/dL High BEDSIDE GLU 132 Result Comment: MANAGEMENT OF PATIENT CARE PER NURSING PROTOCOL Performed By: #### L501.080 #### [facility] Point of Care [address] [place] [address] BASIC METABOLIC Collected: 08/18/2018 Status: F Source: ANDREW PROFILE (BMP) 5:20 AM [facility] REPOSITORY Order Comment: 'TROP' Serial specimen #1, #2, #3, or #4: 1 TYPE CODE TESTS RESULT OUT OF RANGE REFERENCE UNITS LAB L501.0100 74-106 mg/dL High GLU 125 Result Comment: Fasting Glucose result from 100 to 125 mg/dL suggests IMPAIRED HOMEOSTASIS per A.D.A. criteria. Please note revised GLUCOSE reference range effective 2017. LAB L501.1000 7-18 mg/dL High BUN 24 LAB L501.1100 0.70-1.30 mg/dL Normal CREAT,SERUM 1.07 Result Comment: The validity of the calculated GFR AND GFRAA in patients over 70 years has not been determined. Clinical correlation is essential. LAB L501.1110 >60 mL/min Normal EST GFR 80 Result Comment: Non- GFR Calc LAB L501.1115 >60 mL/min Normal EST GFR - AA 97 Result Comment: GFR Calc LAB L501.1255 ml/min Normal Estimated CRCL 95.79 LAB L501.1300 10-20 RATIO High BUN/CRE 22.4 LAB L501.2200 8.5-10 mg/dL Low .1 CA 7.6 LAB L501.5300 136-14 mmol/L Normal 5 NA 140 LAB L501.5600 3.5-5. mmol/L High 1 K alert 6.1 Result Comment: Slight Hemolysis, Result may be falsely increased. Critical Result(s) Called at: 06:48:24 08/18/2018 by: Roque Clark RN LAB L501.5900 98-107 mmol/L Normal CL 105 LAB L501.6100 21.0-32.0 mmol/L Normal CO2 26.0 LAB L501.6200 5-15 Normal 9 GAP Performed By: #### L500.2500, L500.4100, L501.4010 #### [facility] [address] [place], [address] LIPID PROFILE Collected: 08/18/2018 Status: F Source: ETNA 5:20 AM [facility] REPOSITORY Order Comment: 'TROP' Serial specimen #1, #2, #3, or #4: 1 TYPE CODE TESTS RESULT OUT OF RANGE REFERENCE UNITS LAB L501.4900 200 mg/dL Normal CHOL 125 Result Comment: <200 mg/dL Desirable 200-240 mg/dL Borderline >240 mg/dL High Risk LAB L501.5000 mg/dL Normal TRIG 123 Result Comment: The drugs N-Acetylcysteine and Metamizole may falsely depress this assay. Serum Triglycerides Reference Interval Normal <150 mg/dL Borderline high 150 - 199 mg/dL High 200 - 499 mg/dL Very High > or = 500 mg/dL LAB L501.6400 mg/dL Low HDL 30 Result Comment: The drugs N-Acetylcysteine and Metamizole may falsely depress this assay. Reference Range HDL <40 mg/dL Low HDL Cholesterol HDL >or= 60 mg/dL High HDL Cholesterol LAB L501.6500 0-130 mg/dL Normal LDL 70 LAB L501.6600 5-40 mg/dL Normal VLDL 25 Performed By: #### L500.2500, L500.4100, L501.4010 #### [facility] [address] [place], [address] TROPONIN-I Collected: 08/18/2018 Status: F Source: ETNA 5:20 AM [facility] REPOSITORY Order Comment: 'TROP' Serial specimen #1, #2, #3, or #4: 1 TYPE CODE TESTS RESULT OUT OF RANGE REFERENCE UNITS LAB L501.4010 <0.045 ng/mL High 0.488 TROPONIN-I Result Comment: TROPONIN-I EXPECTED VALUES <0.045 Negative 0.045 - 0.590 Consistent with Cardiac Damage > OR = 0.600 Critical Value Not every elevated troponin is indicative of MT. These values should be used with clinical judgement in examining the patient's clinical picture for diagnosis. To establish a diagnosis of MT versus myocardial injury, there must be a demonstrated rise and/or fall in the troponin values, in addition to ischemic symptoms, EKG changes, new regional wall motion abnormality, and/or angiographical evidence. PLEASE NOTE: REFERENCE RANGES EDITED 18 Performed By: #### L500.2500, L500.4100, L501.4010 #### [facility] [address] [place], [place], [id number] CBC-COMPLETE BLOOD CNT Collected: 08/18/2018 Status: F Source: ANDREW NO DIFF 5:20 AM [facility] REPOSITORY TYPE CODE TESTS RESULT OUT OF RANGE REFERENCE UNITS LAB L100.1000 4.4-11.0 K/mm3 Normal WBC 9.2 LAB L100.1200 4.6-6.2 M/mm3 Low RBC 3.93 LAB L100.1300 13.0-16.5 g/dl Low HGB 12.8 LAB L100.1400 40-54 % Low HCT 38.3 LAB L100.1500 80-94 fL High MCV 97.5 LAB L100.1600 27.0-32.0 pg High MCH 32.6 LAB L100.1700 32-36 g/gl Normal MCHC 33.4 LAB L100.1810 11.6-14.6 % Normal RDW CV 13.9 LAB L100.1820 35.1-43.9 fl High RDW SD 48.0 LAB L100.1900 150-450 K/mm3 Normal PLT 158 LAB L100.2000 6.2-12.0 fl High MPV 12.1 Performed By: #### L100.0500 #### [facility] [address] [place], [place], [id number] HEMOGLOBIN A1C Collected: 08/18/2018 Status: F Source: ANDREW 5:20 AM [facility] REPOSITORY Order Comment: Comments: as add on test TYPE CODE TESTS RESULT OUT OF RANGE REFERENCE UNITS LAB L501.9985 4.2-6.3 % High HGB A1C 7.8 Performed By: #### L501.9985 #### [facility] [address] [place], [place], [address] TROPONIN-I Collected: 08/18/2018 Status: F Source: ANDREW 2:28 AM [facility] REPOSITORY Order Comment: 'TROP' Serial specimen #1, #2 or #3: 3 'TROP' Serial specimen #1, #2, #3, or #4: 3 TYPE CODE TESTS RESULT OUT OF RANGE REFERENCE UNITS LAB L501.4010 <0.045 ng/mL High 0.390 TROPONIN-I Result Comment: TROPONIN-I EXPECTED VALUES <0.045 Negative 0.045 - 0.590 Consistent with Cardiac Damage > OR = 0.600 Critical Value Not every elevated troponin is indicative of MT. These values should be used with clinical judgement in examining the patient's clinical picture for diagnosis. To establish a diagnosis of MT versus myocardial injury, there must be a demonstrated rise and/or fall in the troponin values, in addition to ischemic symptoms, EKG changes, new regional wall motion abnormality, and/or angiographical evidence. PLEASE NOTE: REFERENCE RANGES EDITED 18 Performed By: #### L501.4010 #### [facility] [address] [place], [place], [address] BEDSIDE GLUCOSE Collected: 08/17/2018 Status: F Source: ETNA 11:37 PM [facility] REPOSITORY TYPE CODE TESTS RESULT OUT OF REFERENCE UNITS RANGE LAB L501.080 70-110 mg/dL High BEDSIDE GLU 206 Result Comment: MANAGEMENT OF PATIENT CARE PER NURSING PROTOCOL Performed By: #### L501.080 #### [facility] Point of Care [address] [place] [address]. [place], [place] [id number] Observed: 08/17/2018 Status: F Source: ETNA CULTURE, SPUTUM 11:10 PM [facility] REPOSITORY Gram Stain Acceptable Specimen? Acceptable Specimen(Evaluation not needed) Gram Stain 2+ White Blood Cells No organisms seen Resp. Culture Mixed normal respiratory tico. No Haemophilus, Streptococcus pneumoniae, beta-hemolytic Streptococcus or Staphylococcus aureus isolated. Performed By: #### M100.0800 #### [facility] [address] [place], [place], [id number] TROPONIN-I Collected: 08/17/2018 Status: F Source: ETNA 8:25 PM [facility] REPOSITORY Order Comment: 'TROP' Serial specimen #1, #2 or #3: 1 TYPE CODE TESTS RESULT OUT OF RANGE REFERENCE UNITS LAB L501.4010 <0.045 ng/mL High 0.220 TROPONIN-I Result Comment: TROPONIN-I EXPECTED VALUES <0.045 Negative 0.045 - 0.590 Consistent with Cardiac Damage > OR = 0.600 Critical Value Not every elevated troponin is indicative of MT. These values should be used with clinical judgement in examining the patient's clinical picture for diagnosis. To establish a diagnosis of MT versus myocardial injury, there must be a demonstrated rise and/or fall in the troponin values, in addition to ischemic symptoms, EKG changes, new regional wall motion abnormality, and/or angiographical evidence. PLEASE NOTE: REFERENCE RANGES EDITED 18 Performed By: #### L501.4010 #### [facility] [address] [place], [address] HISTORY AND PHYSICAL Observed: 08/17/2018 Status: F Source: ETNA EXAM 6:02 PM [facility] REPOSITORY [facility] Medical Records Department [address] [place] [address] History and Physical 08/17/18 1611 MR#: [id number] Acct: [id number] Name: EDD DUPONT Rep #: [id number] : 1975 43 From: Aurelio Felton DO PCP: Sendy Orellana DO Status: ADM IN Y Location: ICU ICU04-1 ADDENDUM by Aurelio Felton DO on 08/17/18 at 1802 Code Visit Patient's blood pressure went low in ED while receiving Levaquin. Rebounded, but dropped again when in the ICU (into the 70s). I was not notified of the drop while he was in the ER, but only when it happened in the ICU. Discussed with nursing: CYRUS Levaquin, start Azithromycin and Rocephin, CYRUS lasix, NS bolus. Monitor. 08/17/18 1802 <Electronically signed by Aurelio Felton DO> Date Aurelio Felton DO cc: Sendy Orellana DO; Aurelio Felton DO * Signed History of Present Illness Date of Admission: 08/17/18 Chief Complaint: shortness of breath. The patient is a 43 year old M today where he became short of breath. On Sunday, August 14, patient had a hernia surgery that was uncomplicated and it was a same-day surgery. Patient had no ill effects of it and per the family, there is no issues with surgery. Patient went home same day. Patient did have dry cough but otherwise feeling well. Today patient became very short of breath and was sent to the emergency room. In the emergency room, patient was noted to be hypoxic with pulse ox of 67%. Patient was put on nonrebreather but then was intubated shortly afterwards. Patient was also profoundly hypertensive with a blood pressure of 232/83. Patient had a chest x-ray and CAT scan that were pneumonia versus heart failure. Patient received 80 mg of IV Lasix, nitroglycerin drip and Levaquin. Patient had a bedside echo, performed by Dr. Weldon, that showed normal RV and LV though a limited study. Patient is intubated and sedated so history is taken to Dr. Weldon, Dr. Barrow and the patient's family. [] Past Medical History Past Medical History (Chronic Problems): Chronic Problems Borderline diabetes (Chronic) Hyperlipidemia (Chronic) Obesity (Chronic) Benign essential HTN (Chronic) Allergies codeine Adverse Reaction (Verified 08/17/18 14:02) Other Home Medications: Ambulatory Orders Medication Instructions Recorded Lisinopril [Zestril] 20 mg PO DAILY #30 tablet 02/13/15 Acetaminophen [Tylenol] 500 - 1,000 mg PO Q6H PRN PRN 02/13/17 Surgical History: herniorrhaphy, - - He has had a fracture of the distal RLE in the past and has rods and screws. Psychiatric History: No pertinent psych hx Smoking Status: Former smoker Alcohol: None Drugs: None - *Family History Maternal History Items: High Cholesterol, Hypertension Paternal History Items: High Cholesterol, Hypertension Review of Systems Comment: Unable to obtain review of systems as patient is intubated and sedated. Please refer to the HPI for further details. VTE Information - Inpt Only VTE Present on Admission: No VTE Mechan Device Prophylaxis: SCD's VTE Pharm Prophylaxis ordered?: Yes Patient Problems: Active and Suspected Problems Hypertensive emergency (Acute) Flash pulmonary edema (Acute) S/P inguinal hernia repair (Acute) - Physical Exam General: Well developed, Well nourished, - - Intubated and sedated. Afebrile. HEENT: Atraumatic, PERRLA, Normocephalic, - - No scleral icterus Oral: Moist Mucosa, - - Endotracheal tube and orogastric tube in place Neck: No JVD, No Nodes, Thyroid Normal Size and Texture Lungs: Diminished, - - Coarse breath sounds bilaterally Cardiovascular: Regular rate, Regular Rhythm, Normal S1, Normal S2, No murmurs Abdomen: Bowel Sounds Present, Soft, Non Tender, Non-Distended, Obese Extremities: No edema, No Calf Tenderness, - - Does have a firm mass on right anterior rodríguez Skin: No rashes, No breakdown Musculoskeletal: No Tenderness to Palpation of Joints or Extremities, No Muscle Wasting Neurological: - - No clonus. DTRs intact. Vital Signs Temp Pulse Resp BP Pulse Ox 37.4 C H 108 H 24 H 139/94 H 925 08/17/18 16:07 08/17/18 16:07 08/17/18 16:07 08/17/18 16:07 08/17/18 16:07 Oxygen Flow Rate (L/min) 15 Oxygen Delivery Method Mechanical Ventilator Weight: 140.7 kg Body Mass Index (BMI) 43.2 Finger Stick Blood Glucose 174 Intake and Output for Last 24 Hours Output Total 205 / 205 Balance -205 / -205 Laboratory Tests Past 24 Hrs WBC 16.8 H RBC 4.76 Hgb 15.6 WBC RBC Hgb Hct MCV MCH MCHC RDW RDW Differential Plt Count Clinical Impression(s) from Imaging Studies Chest X-Ray 08/17/18 13:58 IMPRESSION: Low lung volumes. Grossly clear lungs. Electronically Signed: Edd Roth, at 14:26 EST Tel , Service support , Chest CTA 08/17/18 14:07 IMPRESSION: No large central pulmonary embolism. Extensive multi focal lung disease. Leading differential considerations are infectious disease and pulmonary edema. N.B. : The above information has been verbally conveyed by Pillo Streeter MD to MORENA Wheeler, on 08/17/2018 15:49:36 (ET). Electronically Signed: Pillo Streeter MD at 14:54 EST Tel , Service support , ADDENDUM: 08/17/18 1607 Chest X-Ray 08/17/18 14:55 IMPRESSION: The endotracheal tube is high and should be advanced at least 6 cm. The tube is now nearly 11 cm above the sameera and above the clavicles. Consider edema and/or diffuse atypical infiltrates. N.B. : The above information has been verbally conveyed by Indiana Flores MD to DR ANA MATOS MD, on 08/17/2018 15:54:30 (ET). Electronically Signed: Indiana Flores MD at 15:43 EST Tel , Service support , EKG reviewed and showed normal sinus rhythm with LVH. Assessment/Plan All Active Problems Hypertensive emergency (Acute) Flash pulmonary edema (Acute) S/P inguinal hernia repair (Acute) Thrombocytopenia (Acute) Chest pain (Acute) Elevated CPK (Acute) 1. Acute hypoxic respiratory failure * Etiology is not quite clear at this time but concern is for either CHF versus pneumonia. CHF may be related with flash pulmonary edema due to malignant hypertension. However patient could have pneumonia with acute lung injury. * Patient on ventilator, wean as tolerated. * Pulmonary on consultation * Pulmonary toilet 2. Possible pneumococcal pneumonia * Will check urinary antigens for Streptococcus and Legionella. Check sputum culture * As patient was only briefly hospitalized for an outpatient surgery, this would not qualify for patient for age. * IV Levaquin * Pulmonary toilet * If indeed due to pneumonia, be concern for acute lung injury associated with that as well. 3. Possible heart failure with preserved ejection fraction * Per brief cardiology report, patient had a normal EF. * We will check a formal echocardiogram * Continue with IV Lasix * Continue with the patient's lisinopril * If this is indeed due to heart failure may have been flash pulmonary edema due to the patient's malignant hypertension * Patient's BNP was only 38.8 4. Malignant hypertension * Much improved at this time * Unclear if this is the etiology of his symptoms or a result of his shortness of breath hypoxia * Continue the nitro drip and his home lisinopril * Family is concerned the patient may not be properly taking his home medications 5. Diabetes mellitus type 2 * Start sliding scale insulin 6. GI prophylaxis with H2 shawn 7. DVT prophylaxis with Lovenox and SCDs. Patient moderate to high risk for VTE Code Visit Inpatient E AND M: [id number] Init Hosp L3 08/17/18 1622 <Electronically signed by Aurelio Felton DO> Date Aurelio Felton DO Cosigner Signature: Date (if applicable) CC: Sendy Orellana DO; Aurelio Felton DO Signed Observed: 08/17/2018 Status: F Source: ANDREW LEGIONELLA ANTIGEN 5:30 PM [facility] URINE REPOSITORY Order Date: 08/17/18 Specimen Source: URINE, TRIVEDI Legionella, UR Legionella Antigen result interpretation: Negative Presumptive negative for Legionella pneumophila serogroup 1 antigen in urine, suggesting no recent or current infection. Legionella Ag, Urine Negative (See interpretation below) Performed By: #### M300.4500 #### [facility] [address] [place] [address]. [place], [place], [address] STREP Observed: 08/17/2018 Status: F Source: ANDREW PNEUMONIAE ANTIG(UR,CSF) 5:30 PM [facility] REPOSITORY Order Date: 08/17/18 S pneumo Ag URINE INTERPRETATION Negative Urine Presumptive negative for pneumococcal pneumonia, suggesting no current or recent pneumococcal infection. Infection due to S pneumoniae cannot be ruled out since the antigen present in the sample may be below the detection limit of the test. Strep pneumo Test Negative URINE (See interpretation below) Performed By: #### M300.4600 #### [facility] [address] [place] [place], [address] M R STAPH AUREUS Collected: 08/17/2018 Status: F Source: ANDREW DNA BY PCR 5:30 PM [facility] REPOSITORY TYPE CODE TESTS RESULT OUT OF RANGE REFERENCE UNITS LAB L8200.1100 Negative Normal MRSA Negative RESULT Performed By: #### L8200.1000 #### [facility] [address] [place], [address] ABDOMEN SINGLE VIEW Observed: 08/17/2018 Status: F Source: ETNA (PORTABLE) 5:24 PM [facility] REPOSITORY [facility] Imaging Services [address] [place] [address] Abdomen Single View (Portable) MR#: [id number] Acct: [id number] Name: EDD DUPONT Rep #: [id number] : 1975 M 43 From: Bart Cervantes MD PCP: Sendy Orellana DO Status: ADM IN Study: Abdomen Single View (Portable) Date of Exam: 08/17/18 Exam# [id number] Ordering Dr: Aurelio Felton DO STUDY: X-RAY - ABDOMEN/PELVIS REASON FOR EXAM: Male, 43 years old. Orogastric tube placement verification. TECHNIQUE: Single AP view of the abdomen / pelvis. COMPARISON: Earlier in the day. FINDINGS: Orogastric tube has been placed with the tip projected over the duodenal bulb. There is an unremarkable bowel gas pattern. There is no demonstrated free abdominal air. The visualized liver, spleen and kidneys are grossly normal in size and morphology. Normal soft tissue structures. Normal visualized osseous structures. There is increased interstitial markings diffusely in the chest. RAD/Abdomen Single View (Portable) IMPRESSION: Tip of orogastric tube projected over the duodenal bulb. Electronically Signed: Bart Cervantes MD at 20:14 EST , Service support , CC: Sendy Orellana DO; Aurelio Felton DO Production Control Clerk: Signed EMERGENCY DEPARTMENT Observed: 08/17/2018 Status: F Source: ETNA SUMMARY 4:15 PM [facility] REPOSITORY [facility] Medical Records Department [address] [place] [address] Emergency Department Summary 08/17/18 1553 MR#: [id number] Acct: [id number] Name: EDD DUPONT Rep #: [id number] : 1975 43 From: Joel Barrow MD PCP: Sendy Orellana DO Status: REG ER - ER Visit Summary Date of Service: 08/17/18 Chief Complaint: Shortness of breath History of Present Illness: The patient is a 43 M with shortness of breath. Symptoms started fairly suddenly today while at rest. The patient also has sweats, cough, nausea, and sputum. Denies fevers. Denies chest pain. Denies any history of this in the past. Denies any history of lung disease or heart disease. Denies history of PE. He had a hernia repair [address] Thompson which went well. He has no abdominal pain or GI symptoms other than nausea. Physical Examination: Hypertensive at 230 systolic. Otherwise afebrile. Pulse ox in the 60s on room air. Patient is slightly pale and diaphoretic. Lungs are diminished throughout. Heart regular. Abdomen soft and nontender. Incisions clean, dry, intact. Calves soft and supple. Strong pulses. Test Results: EKG showed sinus rhythm at a rate of 91. No sign of acute ischemia or infarction pattern. Emergency Department Course and Treatment: Patient was seen immediately. Placed on a monitor and oxygen. His pulse ox went to the mid 90s on 100% oxygen. He continued to be symptomatically short of breath. Chest x-ray showed low volumes but was otherwise unremarkable. CT was done and showed multifocal pneumonia versus pulmonary edema. No definite PE. He does have splenomegaly. Official read is pending, but I spoke with the radiologist directly. White count 16.8 troponin normal. BNP normal. Hepatic panel, lactate pending. ABG pending. Patient was intubated for hypoxic respiratory failure. Etomidate and succinylcholine were given. Intubation was successful and confirmed with capnography and breath sounds. He was sedated with propofol and fentanyl. We started a nitro drip for hypertension. Dr. Weldon was contacted and performed a bedside ultrasound. He believes that the heart function appeared normal. He advised blood pressure control and Lasix. He was given 80 mg of Lasix. ICU and hospitalist were contacted. He will be admitted for further care. He was given empiric Levaquin. Cultures and urinalysis are pending. Lactate pending. Blood pressure is much improved. Radiology called again to recommend advancement of his ET tube. This was advanced 5-6 cm. Patient is tolerating the vent. ABG pending. Dr. Gilmore also notified. Treatment Plan: As above Disposition: Admission to ICU Impression: 1. Pulmonary edema 2. Hypertension 3. respiratory failure This note was generated with [employer] software. It may contain incorrect words, spelling, and punctuation that were not noted in review of the chart prior to signing ED Disposition - Plan for ED Patient: Chief Complaint: General Illness Referrals: Sendy Orellana, DO [Primary Care Provider] - What to do if you have Problems For any increased pain, shortness of breath, bleeding, nausea or vomiting, chest pain, or any unexpected problems, contact your Primary Care Provider. Call [facility] ([phone]) or report to the closest Emergency Room. Call 911 if necessary. 08/17/18 1195 <Electronically signed by Joel Barrow MD> Date Joel Barrow MD Cosigner Signature (If Indicated): Date CC: Sendy Orellana DO BLOOD GASES BY CPS Collected: 08/17/2018 Status: F Source: ANDREW 4:01 PM ON LICENSE OF [facility] REPOSITORY TYPE CODE TESTS RESULT OUT OF RANGE REFERENCE UNITS LAB L9000.9990 Normal BLD GAS TYPE ART LAB L9001.1000 Normal SITE L Radial LAB L9001.1010 Normal PEPITO TEST POS LAB L9001.1048 Normal Mode A-C LAB L9001.1050 O2 Normal Delivery Dev Vent LAB L9001.1065 Vt Normal 450 LAB L9001.1070 RR Normal 16 LAB L9001.1074 Normal FI02 100 LAB L9001.1076 Normal PEEP 10 LAB L9001.1104 Normal Results To ED LAB L9001.1105 Normal Time Given 1558 LAB L9001.1110 7.35-7.45 Low pH - I-STAT 7.29 LAB L9001.1210 35-45 mmHg High pCO2 - ISTAT 61.5 LAB L9001.1310 75-100 mmHG High PO2 I-STAT 179 LAB L9001.2300 22-26 mmol/L High HCO3 ISTAT 29.5 LAB L9001.2400 -2 to +2 mmol/L High BE ISTAT 3 LAB L9001.2415 mmol/L Normal TOTAL CO2 31 ISTAT LAB L9001.2425 95-99 % Normal SO2 ISTAT 99 Performed By: #### L9000.0800 #### [facility] Laboratory Point of Care [address] [place] [address] URINALYSIS, COMPLETE Collected: 08/17/2018 Status: F Source: ETNA 3:50 PM [facility] REPOSITORY Order Comment: Order Date: 08/17/18 How was Urine Obtained? CATHETER SPECIMEN TYPE CODE TESTS RESULT OUT OF RANGE REFERENCE UNITS LAB L400.3000 Yellow COLOR Normal Yellow LAB L400.3050 Clear Normal CLARITY Clear LAB L400.3200 Normal mg/dl Normal GLUCOSE, UR Normal LAB L400.3300 Negative mg/dL Normal BILIRUBIN URINE Negative LAB L400.3400 Negative mg/dl Normal KETONE UR Negative LAB L400.3465 1.002-1.030 Normal SP.GR. DIPSTX 1.010 LAB L400.3550 5.0 - 8.0 pH UR Normal 5.0 LAB L400.3600 Negative mg/dl High PROT 30 DIPSTX LAB L400.3700 Normal mg/dl Normal UROBILI Normal LAB L400.3750 Negative Normal NITRITE UR Negative LAB L400.3780 Negative /ul High OCCULT BLOOD-UR 150 LAB L400.3800 Negative /ul LEUK Normal ESTERASE Negative LAB L400.4050 0-5 /hpf WBC 0 Normal SEEN LAB L400.4100 0-5 /hpf Normal RBC-UA 0-5 SEEN LAB L400.4150 0-5 /hpf SQUAM Normal EPI 0-5 SEEN LAB L400.4300 None Seen /hpf 0 Normal BACTERIA SEEN LAB L400.4350 <or=2+ /hpf 0 Normal MUCUS, URINE SEEN Performed By: #### L400.0001 #### [facility] Laboratory [address] [facility] [place], [address] Observed: 08/17/2018 Status: F Source: ANDREW CULTURE, URINE 3:50 PM [facility] REPOSITORY Urine Culture Culture exhibits no growth. Performed By: #### M100.0650 #### [facility] Laboratory [facility], [address] Observed: 08/17/2018 Status: F Source: ANDREW CULTURE, BLOOD (WB) 3:48 PM [facility] REPOSITORY BC No growth in 5 days. Performed By: #### M200.1000 #### [facility] Laboratory [facility] [place], [address] LACTIC ACID Collected: 08/17/2018 Status: F Source: ANDREW 3:45 PM [facility] REPOSITORY Order Comment: Yes/No query for Sepsis Lactate Rule Y TYPE CODE TESTS RESULT OUT OF RANGE REFERENCE UNITS LAB L503.6005 0.4-2.0 mmol/L Normal LACTIC ACID 1.4 Performed By: #### L503.6005 #### [facility] Laboratory [facility] [place], [address] LIVER PROFILE Collected: 08/17/2018 Status: F Source: ANDREW 3:45 PM [facility] REPOSITORY TYPE CODE TESTS RESULT OUT OF RANGE REFERENCE UNITS LAB L501.1500 6.4-8.2 g/dL High T PROT 8.9 LAB L501.1800 3.2-5.0 g/dL Normal ALB 3.2 LAB L501.1950 2.2-4.2 g/dL High GLOB 5.7 LAB L501.4100 15-37 U/L High AST 41 LAB L501.4305 45-117 U/L High ALK P 164 LAB L501.4405 16-61 U/L Normal ALT 54 LAB L501.4600 0.20-1.00 mg/dL High T BILI 1.10 LAB L501.4700 0.00-0.30 mg/dL High D BILI 0.33 Performed By: #### L500.3400 #### [facility] [address] [place], [address] Observed: 08/17/2018 Status: F Source: ANDREW CULTURE, BLOOD (WB) 3:45 PM ON LICENSE OF [facility] REPOSITORY BC No growth in 5 days. Performed By: #### M200.1000 #### [facility] [address] [place], [address] CHEST 1 VIEW Observed: 08/17/2018 Status: F Source: ANDREW (PORTABLE) 2:56 PM ON LICENSE OF [facility] REPOSITORY [facility] Imaging Services [address] [place] [address] Chest 1 View (Portable) MR#: [id number] Acct: [id number] Name: EDD DUPONT Rep #: [id number] : 1975 M 43 From: Indiana Flores MD PCP: Sendy Orellana DO Status: REG ER Study: Chest 1 View (Portable) Date of Exam: 08/17/18 Exam# [id number] Ordering Dr: Joel Barrow MD STUDY: X-RAY CHEST REASON FOR EXAM: Male, 43 years old. His intubation TECHNIQUE: Single AP portable view of the chest. X2 COMPARISON: August 17, 2018 chest x-ray FINDINGS: An endotracheal tube is present high above the sameera 11 cm. NG tube is present the tip is in the stomach. There is a pattern of bilateral peribronchial thickening and increased interstitial markings and right perihilar consolidation. There is borderline cardiomegaly. Normal mediastinum and subha. Normal visualized pulmonary arteries. Normal visualized aortic arch and descending thoracic aorta. There are diffuse degenerative changes of the visualized thoracic spine. Normal visualized ribs, clavicles, and shoulders. There is no demonstrated abnormality of the visualized soft tissue structures of the upper abdomen. RAD/Chest 1 View (Portable) IMPRESSION: The endotracheal tube is high and should be advanced at least 6 cm. The tube is now nearly 11 cm above the sameera and above the clavicles. Consider edema and/or diffuse atypical infiltrates. N.B. : The above information has been verbally conveyed by Indiana Flores MD to DR ANA MATOS MD, on 08/17/2018 15:54:30 (ET). Electronically Signed: Indiana Flores MD at 15:43 EST Tel , Service support , CC: Joel Barrow MD; Sendy Orellana DO Production Control Clerk: Signed CTA CHEST W/WO Observed: 08/17/2018 Status: F Source: ANDREW CONTRAST 2:09 PM [facility] REPOSITORY [facility] Imaging Services [address] [place] [address] CTA Chest W/WO Contrast MR#: [id number] Acct: [id number] Name: EDD DUPONT Rep #: [id number] : 1975 M 43 From: Pillo Streeter PCP: Sendy Orellana DO Status: REG ER Study: CTA Chest W/WO Contrast Date of Exam: 08/17/18 Exam# [id number] Ordering Dr: Joel Barrow MD ADDENDUM by Pillo Streeter on 08/17/18 at 1600 ADDENDUM Limited evaluation of the upper abdomen demonstrate the presence of splenomegaly and splenic varices. 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 Electronically Signed: Pillo Streeter MD at 16:00 EST Tel , Service support , N.B. : The above information has been verbally conveyed by Pillo Streeter MD to MORENA Wheeler, on 08/17/2018 15:49:36 (ET). 08/17/18 1600 Date cc: Joel Barrow MD; Sendy Orellana DO * Signed ADDENDUM by Pillo Streeter on 08/17/[address]/CTA Chest W/WO Contrast 08/17/18 1607 Date cc: Joel Barrow MD; Sendy Orellana DO * Signed STUDY: CTA CHEST REASON FOR EXAM: Male, 43 years old. SOB, 3 DAYS POST OP HERNIA REPAIR, HYPOXIC ON ARRIVAL TO ED, HX-HTN, DB. RADIATION DOSAGE (If Supplied By Facility): CTDIvol = ( 18.38 ) mGy, DLP = ( 705.62 ) mGycm TECHNIQUE: The examination was performed with the intravenous administration of 100 ml of Isovue 370 contrast material. Post-processing of the angiographic images was performed, with multiplanar reformation and 3D reconstruction. Individualized dose optimization techniques were used for this CT. COMPARISON: None. FINDINGS: There is limited enhancement of the main pulmonary artery and right and left pulmonary arteries. There is limited enhancement of the bilateral peripheral pulmonary arteries. Normal thoracic aorta and visualized great vessels. Normal heart and pericardium. Normal mediastinum. Normal hilar regions. Normal visualized trachea and bronchi. The lungs are well expanded. There are numerous diffuse bilateral groundglass opacities with confluence at the lung bases. There is trace right pleural effusions. Normal pleura. Normal chest wall structures. There are degenerative changes of thoracic spine. CT/CTA Chest W/WO Contrast IMPRESSION: No large central pulmonary embolism. Extensive multi focal lung disease. Leading differential considerations are infectious disease and pulmonary edema. N.B. : The above information has been verbally conveyed by Pillo Streeter MD to MORENA Wheeler, on 08/17/2018 15:49:36 (ET). Electronically Signed: Pillo Streeter MD at 14:54 EST Tel , Service support , CC: Joel Barrow MD; Sendy Orellana DO Production Control Clerk: Signed CHEST 1 VIEW Observed: 08/17/2018 Status: F Source: ETNA (PORTABLE) 1:58 PM [facility] REPOSITORY [facility] Imaging Services [address] [place] [address] Chest 1 View (Portable) MR#: [id number] Acct: [id number] Name: EDD DUPONT Rep #: [id number] : 1975 M 43 From: Edd Roth MD PCP: Sendy Orellana DO Status: PRE ER Study: Chest 1 View (Portable) Date of Exam: 08/17/18 Exam# [id number] Ordering Dr: Joel Barrow MD STUDY: X-RAY CHEST REASON FOR EXAM: Male, 43 years old. Dyspnea TECHNIQUE: Frontal view of the chest COMPARISON: 02/12/2015 FINDINGS: There are low lung volumes. The lungs are grossly clear. The heart is prominent which is likely accentuated by the low lung volumes. The visualized osseous structures are within normal limits. RAD/Chest 1 View (Portable) IMPRESSION: Low lung volumes. Grossly clear lungs. Electronically Signed: Edd Roth, at 14:26 EST Tel , Service support , CC: Joel Barrow MD; Sendy Orellana DO Production Control Clerk: Signed CBC W/DIFF, AUTOMATED Collected: 08/17/2018 Status: F Source: ANDREW 1:54 PM [facility] REPOSITORY TYPE CODE TESTS RESULT OUT OF RANGE REFERENCE UNITS LAB L100.1000 4.4-11.0 K/mm3 High WBC 16.8 LAB L100.1200 4.6-6.2 M/mm3 Normal RBC 4.76 LAB L100.1300 13.0-16.5 g/dl Normal HGB 15.6 LAB L100.1400 40-54 % Normal HCT 45.2 LAB L100.1500 80-94 fL High MCV 95.0 LAB L100.1600 27.0-32.0 pg High MCH 32.8 LAB L100.1700 32-36 g/gl Normal MCHC 34.5 LAB L100.1810 11.6-14.6 % Normal RDW CV 13.3 LAB L100.1820 35.1-43.9 fl High RDW SD 44.4 LAB L100.1900 150-450 K/mm3 Normal PLT 206 LAB L100.2000 6.2-12.0 fl High MPV 12.2 LAB L100.2100 47-70 % High NEUT% 93.3 LAB L100.2200 19-41 % Low LY% 4.2 LAB L100.2300 0-10 % Normal MONO% 1.7 LAB L100.2400 0-5 % Normal EO% 0.4 LAB L100.2500 0-1 % Normal BASO% 0.1 LAB L100.2550 0.0-0.9 % Normal IM GRAN % 0.300 Result Comment: IG% - Immature Granulocytes (promyelocytes, myelocytes and metamyelocytes) > 1% indicates that a LEFT SHIFT is Present. LAB L100.2620 2.0-7.7 X10 3/uL High Absolute Neut 15.6 LAB L100.2720 0.83-4.51 X10 3/ul Low Absolute Lymph 0.70 Performed By: #### L100.0100 #### [facility] [place], [address] PROTHROMBIN TIME W/INR Collected: 08/17/2018 Status: F Source: ANDREW 1:54 PM [facility] REPOSITORY TYPE CODE TESTS RESULT OUT OF RANGE REFERENCE UNITS LAB L300.4150 11.7-14.9 SECONDS Normal PROTIME 14.7 LAB L300.4200 Normal INR 1.2 Performed By: #### L300.3900, L300.4310 #### [facility] Laboratory [address] [place], [place], [address] PARTIAL THROMBOPLAST Collected: 08/17/2018 Status: F Source: ETNA TIME 1:54 PM [facility] REPOSITORY TYPE CODE TESTS RESULT OUT OF RANGE REFERENCE UNITS LAB L300.4310 24.1-36.2 Seconds Normal PTT 28.2 Performed By: #### L300.3900, L300.4310 #### [facility] [address] [place], [address] BASIC METABOLIC Collected: 08/17/2018 Status: F Source: ETNA PROFILE (BMP) 1:54 PM [facility] REPOSITORY TYPE CODE TESTS RESULT OUT OF RANGE REFERENCE UNITS LAB L501.0100 74-106 mg/dL High GLU 211 Result Comment: Glucose result greater than or equal to 200 mg/dL suggests DIABETES MELLITUS per A.D.A. criteria. Please note revised GLUCOSE reference range effective 2017. LAB L501.1000 7-18 mg/dL Normal BUN 15 LAB L501.1100 0.70-1.30 mg/dL Normal CREAT,SERUM 0.72 Result Comment: The validity of the calculated GFR AND GFRAA in patients over 70 years has not been determined. Clinical correlation is essential. LAB L501.1110 >60 mL/min Normal EST GFR 127 Result Comment: Non- GFR Calc LAB L501.1115 >60 mL/min Normal EST GFR - AA 154 Result Comment: GFR Calc LAB L501.1255 ml/min Normal Estimated CRCL 142.35 LAB L501.1300 10-20 RATIO High BUN/CRE 20.8 LAB L501.2200 8.5-10 mg/dL .1 CA Normal 8.7 LAB L501.5300 136-14 mmol/L 5 NA Normal 137 LAB L501.5600 3.5-5. mmol/L 1 K Normal 3.9 LAB L501.5900 98-107 mmol/L CL Normal 103 LAB L501.6100 21.0-3 mmol/L 2.0 CO2 Normal 25.0 LAB L501.6200 5-15 GAP Normal 9 Performed By: #### L500.2500, L501.4010 #### [facility] Laboratory [address] [place], [address] TROPONIN-I Collected: 08/17/2018 Status: F Source: ANDREW 1:54 PM [facility] REPOSITORY TYPE CODE TESTS RESULT OUT OF RANGE REFERENCE UNITS LAB L501.4010 <0.045 ng/mL Normal 0.019 TROPONIN-I Result Comment: TROPONIN-I EXPECTED VALUES <0.045 Negative 0.045 - 0.590 Consistent with Cardiac Damage > OR = 0.600 Critical Value Not every elevated troponin is indicative of MT. These values should be used with clinical judgement in examining the patient's clinical picture for diagnosis. To establish a diagnosis of MT versus myocardial injury, there must be a demonstrated rise and/or fall in the troponin values, in addition to ischemic symptoms, EKG changes, new regional wall motion abnormality, and/or angiographical evidence. PLEASE NOTE: REFERENCE RANGES EDITED 18 Performed By: #### L500.2500, L501.4010 #### [facility] [address] [facility] [place], [address] BNP,B-TYPE NATRIURETIC Collected: 08/17/2018 Status: F Source: ANDREW PEPTIDE 1:54 PM [facility] REPOSITORY TYPE CODE TESTS RESULT OUT OF RANGE REFERENCE UNITS LAB L503.6620 0-100 pg/mL Normal B-TYPE 38.8 ELIZABET PEP Performed By: #### L503.6620 #### [facility] Laboratory [address] [place], [address] THYROID STIM HORMONE Collected: 08/17/2018 Status: F Source: ANDREW (TSH) 1:54 PM [facility] REPOSITORY TYPE CODE TESTS RESULT OUT OF RANGE REFERENCE UNITS LAB L501.9520 0.358-3.74 uIU/mL Normal TSH 0.99 Performed By: #### L501.9520 #### [facility] Laboratory [address] [place], [address] PT ED Observed: 08/14/2018 Status: COMPLETED Source: [place] 1:42 PM [facility] REPOSITORY HNO ID: [id number] Author: Indiana (Rn) LEEANNA Blevins Service: (none) Author Type: Registered Nurse Type: Patient Education Filed: 08/14/2018 1:42 PM Note Text: {Select a patiePOST OP LEARNING RESPONSE INSTRUCTION PROVIDED TO: Patient and family member METHOD OF INSTRUCTION: Teach Back done Individual instruction Written instruction - handouts Verbal instruction PATIENT / FAMILY RESPONSE: Verbalizes understanding of: MEDICATION PRESCRIBED-Accurate knowledge of prescribed medication prior to discharge POST-OPERATIVE INSTRUCTIONS-Correct actions to take to reduce postoperative complications SYMPTOM MANAGEMENT-Correct actions to take to manage symptoms associated with his/her disease/illness WORSENING CONDITION-Signs and symptoms of a worsening condition that warrant a call to the physician WOUND CARE-Correct procedure to perform wound care FOLLOW-UP PLAN: Patient instructed to call with any further issues Contact information given. SUPPLEMENTAL MATERIAL: None REFERRAL (RECOMMENDATION): None Electronically Signed By: Indiana Blevins RN In Department: [facility] SURGERY ANES POST Observed: 08/14/2018 Status: COMPLETED Source: [place] 1:35 PM [facility] REPOSITORY HNO ID: [id number] Author: Behzad Mckeon Service: Anesthesiology Author Type: Anesthesiologist Type: Anesthesia PostOp Filed: 08/14/2018 4:10 PM Note Text: POST ANESTHESIA EVALUATION NOTE SERVICE DATE: 08/14/2018 SERVICE TIME: 1300 : 1975 Vitals: 08/14/18 0825 08/14/18 1139 08/14/18 1324 Temp: 37 ?C (98.6 ?F) 36.7 ?C (98.1 ?F) 36.5 ?C (97.7 ?F) 08/14/18 1215 08/14/18 1230 08/14/18 1245 08/14/18 1324 BP: 163/74 158/67 158/70 154/69 08/14/18 1215 08/14/18 1230 08/14/18 1245 08/14/18 1324 Pulse: 88 85 83 79 08/14/18 1215 08/14/18 1230 08/14/18 1245 08/14/18 1324 Resp: 16 16 16 16 08/14/18 1215 08/14/18 1230 08/14/18 1245 08/14/18 1324 SpO2: 97% 96% 94% 94% Validated Vital Signs: Yes POST ANES STATUS: No apparent anesthetic complications. The patient is appropriately hydrated with stable respiratory and cardiovascular status. Patient has safe and adequate airway control. The patient has appropriate pain relief and no significant post operative nausea or vomiting. The patient has achieved baseline mental status. Further assessment by Anesthesia Service: None Other Remarks: SIGNATURE: Behzad Mckeon MD PATIENT NAME: Edd Dupont DATE: August 14, 2018 TIME: 4:10 PM PAGER/CONTACT #: [phone] NURSING PROG Observed: 08/14/2018 Status: COMPLETED Source: [place] 12:07 PM [facility] REPOSITORY HNO ID: [id number] Author: Henna SahuRn) LEEANNA Klein Service: Nursing Author Type: Registered Nurse Type: Nursing Progress Note Filed: 08/14/2018 12:56 PM Note Text: 1139 Received from or Drowsy 1200 C/o abd discomfort level 4 Declines pain med Ice chips po 1230 C/o abd discomfort level 6 Fentanyl 50mcg iv 1245 Pt states he's comfortable Sips of water po Voided [address] avitia talked with pt BRIEF OP NOT Observed: 08/14/2018 Status: COMPLETED Source: [place] 11:31 AM [facility] REPOSITORY HNO ID: [id number] Author: Delmi Avitia Service: General Surgery Author Type: Physician Type: Brief Op Note Filed: 08/14/2018 11:36 AM Note Text: BRIEF OPERATIVE NOTATION FOR SURGICAL PROCEDURE. Edd Dupont 1975 [id number] male LOG ID: [id number] Surgery/Procedure Date: 08/14/2018 Incision/Procedure Start Time: 10:14 AM Incision Close/Procedure End Time: 11:29 AM Surgeon(s)/Proceduralist(s) and Wine Manager(s): Surgeon(s) and Role: * Delmi Avitia - Primary Physician Wine Manager: Marisa Agosto REFERRING PHYSICIAN: Outpatient DEPT: LISA PROVIDER: Katelyn POS: [id number] ANESTHESIA: General ASA CLASS: 3 - Severe DIAGNOSIS: incisional hernia PROCEDURE: laparoscopic incisional hernia repair - [id number] IVF: 1200 EBL: 10 Specimens: hernia sac ADDITIONAL DIAGNOSES: parietene DS 12cm FINDINGS: 2cm defect COMPLICATIONS: None PMHx - PAST MEDICAL HISTORY Diagnosis Date - Bilateral leg edema 10/05/2015 - Bilateral leg edema 10/05/2015 - Essential hypertension, benign - Hyperlipidemia - Morbid obesity (HCC) 07/06/2014 - Obstructive sleep apnea syndrome 10/05/2015 DME: [facility], has not been able to tolerate CPAP. - Psoriasis 07/06/2014 - Uncontrolled type 2 diabetes mellitus without complication, without long-term current use of insulin (HCC) 02/24/2016 COMORBIDITIES - Obesity, DM, SLeep apnea Post Op Occurrences - None Wound Classification - Clean Operative note dictated in the dictation system. - [id number] Delmi Avitia MD SURGICAL PATHOLOGY Observed: 08/14/2018 Status: F Source: [place] 10:45 AM [facility]IN[facility] OTHER CAMPUS REPOSITORY Specimen originated from [facility] Specimen #: [id number] Submitting Physician: DELMI AVITIA MD FINAL DIAGNOSIS Soft tissue, incisional not further specified, herniorrhaphy (A) - Hernia sac. SEK/roxana 08/15/2018 Edson Castrejon MD (Electronic Signature) SPECIMEN SUBMITTED A: HERNIA SAC CLINICAL DATA INCISIONAL HERNIA LAPAROSCOPIC INCISIONAL HERNIA REPAIR GROSS DESCRIPTION A. Received in formalin in a container labeled with patient name and hernia sac is a 4.5 x 3.9 x 1.0 cm aggregate of solomon-purple to solomon-yellow, irregular fatty and fibromembranous tissue fragments. Sectioning reveals unremarkable cut surfaces with no discrete lesions identified. Air Traffic Control Manager sections are submitted in one cassette. JONES/lani 08/14/2018 Gross examination performed at [facility], [address] [place] [address] Date of Report: 08/15/2018 Date of Procedure: 08/14/2018 Date of Receipt: 08/14/2018 Submitted by: DELMI AVITIA MD Location: [facility] Diagnostic interpretation performed at [facility], [facility] [place] [address]. Performed By: #### PATHS #### [employer] [address] [place] [address] [phone] HISTORY PHYSICAL Observed: 08/14/2018 Status: COMPLETED Source: [place] 9:10 AM CLINIC OTHER CAMPUS REPOSITORY HNO ID: [id number] Author: Delmi Avitia Service: General Surgery Author Type: Physician Type: HANDP Filed: 08/14/2018 9:10 AM Note Text: HISTORY AND PHYSICAL ? Edd Longoria Kiah 1975 ? ? REFERRING PHYSICIAN: Lashay Felton(Lizzie)* ? CHIEF COMPLAINT: Consult (Consult Ventral hernia) ? HPI: Edd is a 43 year old male with a complaint of a bulge and discomfort in his prior umbilical incision. The patient notes discomfort in this area with lifting, coughing and moving. The symptoms have increased, over the past few weeks. ? The patient notes no symptoms of bowel obstruction and denies nausea or vomiting. The patient was seen by his primary care physician who felt the patient has a hernia. Edd was referred for evaluation and treatment. ? The patient is being seen by me today at the request of Dr. Tomas Delgado MD for my opinion and advice regarding incisional/umbilical. ? THe patient developed LLE cellulitis causing the case to be postoned. HE was treated with elevation and antibiotics. The cellulitis has resolved and he is ready to reschedule surgery. ? ? PAST MEDICAL HISTORY PAST MEDICAL HISTORY Diagnosis Date - Bilateral leg edema 10/05/2015 - Bilateral leg edema 10/05/2015 - Essential hypertension, benign ? - Hyperlipidemia ? - Morbid obesity (HCC) 07/06/2014 - Obstructive sleep apnea syndrome 10/05/2015 ? DME: [facility], has not been able to tolerate CPAP. - Psoriasis 07/06/2014 - Uncontrolled type 2 diabetes mellitus without complication, without long-term current use of insulin (HCC) 02/24/2016 ? ? PAST SURGICAL HISTORY PAST SURGICAL HISTORY Procedure Laterality Date - LAP REPAIR INTIAL INGUINAL HERNIA Left 02/19/2017 ? large bard 3D Max - OPEN FIXATN PROX END/NECK FEMUR FX ? 1997 ? ORIF femur - REPAIR ING HERNIA,5+Y/O,REDUCIBL ? 01/25/11 ? Right ? ? ? CURRENT MEDICATIONS ? Current Outpatient Prescriptions: Hydrochlorothiazide 12.5 mg capsule Take 1 capsule by mouth once daily. sulfamethoxazole-trimethoprim (BACTRIM DS) 800-160 mg per tablet Take 1 tablet by mouth twice daily for 10 days. gabapentin (NEURONTIN) 100 mg capsule Take 1 capsule by mouth three times daily for 180 days. atorvastatin (LIPITOR) 80 mg tablet Take 1 tablet by mouth once daily. ammonium lactate (LAC-HYDRIN) 12 % cream Apply 1 application to affected area as needed. triamcinolone acetonide (KENALOG) 0.5 % cream Apply 1 application to affected area twice daily. Apply sparingly to affected area. sertraline (ZOLOFT) 50 mg tablet Take 1.5 tablets by mouth once daily. metFORMIN ER (GLUCOPHAGE XR) 500 mg 24 hr tablet Take two tabs in AM and PM lisinopril (ZESTRIL, PRINIVIL) 20 mg tablet Take 1 tablet by mouth once daily. ezetimibe (ZETIA) 10 mg tablet Take 1 tablet by mouth once daily. blood sugar diagnostic (RELION PRIME TEST STRIPS) test strip Test glucose 1 x per day. Dx: E11.65. Insulin use: no lancets (FREESTYLE LANCETS) 28 gauge misc Test blood sugar(s) one times daily. Dx: Type 2 DM - Uncontrolled E11.65 Insulin: No Blood-Glucose Meter (BLOOD GLUCOSE MONITORING) monitoring kit 1 Each as needed. COMPOUNDED PRESCRIPTION Knee High Compression Stockings 20- 30 mm, DX: venous insufficiency, chronic ? No current facility-administered medications for this visit. ? ALLERGIES: Codeine ? PERSONAL HISTORY: SOCIAL HISTORY Social History Marital status: Single Spouse name: Years of education: Number of children: ? Social History Main Topics Smoking status: Former Smoker Packs/day: 0.00 Years: 0.00 Types: Cigarettes Smokeless tobacco: Never Used Comment: Smoked very little Alcohol use: No Drug use: No Sexual activity: No ? 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 ? FAMILY HISTORY: FAMILY HISTORY FAMILY HISTORY Problem Relation Age of Onset - Hypertension Mother ? - Lipids Mother ? - Diabetes Mother ? - Obesity Mother ? - Prostate Cancer Paternal Grandfather ? - COPD Father ? - other (leukemia) Maternal Grandmother ? - Emphysema Maternal Grandfather ? ? ? REVIEW OF SYMPTOMS: The review of systems data was entered by the nurse and reviewed by me ? There are no exam notes on file for this visit. PHYSICAL EXAMINATION: ? General: The patient is 43 year old male, well nourished, well hydrated in no acute distress. The patient is oriented to time, place, and person. ? VITALS: Blood pressure 160/80, pulse 72, height 180.3 cm (5' 11), weight (!) 142.9 kg (315 lb). Body mass index is 43.93 kg/m?. ? HEENT: Normal cephalic, ataumatic, pupils are equally round, sclera are anicteric, mucous membranes are moist, oropharynx is clear. Neck has no masses, asymmetry or lymphadenopathy. Thyroid is unremarkable. ? Respiratory: Clear to auscultation and percussion. Normal respiratory excursion and pattern. ? Cardiac: Examination is regular rate and rhythm. ? Abdominal exam: Soft, nontender, with no palpable masses. No hepatosplenomegaly. A small, non reducible incisional hernia ? Rectal exam: exam deferred ? Extremities: no clubbing, cyanosis or edema. No adenopathy. ? Other: ? ? LABORATORY VALUES: As Noted ? RADIOLOGIC STUDIES: As Noted ? Assessment IMPRESSION: prior umbilical incisional hernia ? PLAN: My plan is to perform a laparoscopic incisional hernia repair with mesh. The planned surgical procedure was discussed extensively with the patient. The risks, benefits, anticipated outcomes and possible complications were mentioned. Edd aguileraands that all hernia repair surgery has a chance of recurrence and/or chronic post operative pain. My staff has also explained the procedure in understandable terms and the patient was given the option to take printed material concerning the planned procedure. The patient had the opportunity to ask questions concerning the planned procedure. The patient freely consents to the planned procedure. ? ? ? My findings have been communicated to Dr. Tomas Delgado MD via shared medical record. This note will be forwarded to Dr. Tomas Delgado MD. ? Diagnoses: (K43.2) Incisional hernia, without obstruction or gangrene (primary encounter diagnosis) ? Anticipated CPT Code: laparoscopic incisional hernia repair - incarcerated - 31925-498 ? Anticipated Anesthetic: General ? Patient weight: Blood pressure 160/80, pulse 72, height 180.3 cm (5' 11), weight (!) 142.9 kg (315 lb). BMI: Body mass index is 43.93 kg/m?. ? Planned antibiotic: Ancef 3gm IVPB personnel supervisor to OR ? SCDs needed - Yes Return to Clinic: The patient is instructed to follow-up with me 1 week post operatively. ? Delmi Avitia MD ANES PREOP Observed: 08/14/2018 Status: COMPLETED Source: [place] 9:07 AM CLINIC OTHER CAMPUS REPOSITORY O ID: [id number] Author: Behzad Mckeon Service: Anesthesiology Author Type: Anesthesiologist Type: Anesthesia PreOp Filed: 08/14/2018 9:07 AM Note Text: ANESTHESIOLOGY DAY OF SURGERY NOTE SERVICE DATE: 08/14/2018 SERVICE TIME: 9:07 AM : 1975 Procedure(s) (LRB): LAPAROSCOPIC HERNIORRHAPHY INCISIONAL ABDOMEN REDUCIBLE (N/A) Surgeon(s): Delmi Avitia Estimated body mass index is 43.96 kg/m? as calculated from the following: Height as of this encounter: 180.3 cm (5' 10.98). Weight as of this encounter: 142.9 kg (315 lb 0.6 oz). Most recent hematocrit and potassium results: Hematocrit 41.9 08/02/2018 Potassium 4.4 08/02/2018 ANES DOS/PREOP NOTE: Vitals: 08/14/18 0825 BP: 185/80 Pulse: 92 Resp: 18 Temp: 37 ?C (98.6 ?F) SpO2: 96% Weight: (!) 142.9 kg (315 lb 0.6 oz) Height: 180.3 cm (5' 10.98) ACTIVE PROBLEM LIST Psoriasis Essential Hypertension, Benign Mixed Hyperlipidemia Morbid Obesity Due to Excess Calories (Hcc) Uncontrolled Type 2 Diabetes Mellitus Without Complication, Without Long-Term Current Use of Insulin ([facility]) Diabetic Eye Exam ([facility]) Hidden Penis Eczema Obstructive Sleep Apnea Syndrome Incisional Hernia PAST MEDICAL HISTORY Diagnosis Date - Bilateral leg edema 10/05/2015 - Bilateral leg edema 10/05/2015 - Essential hypertension, benign - Hyperlipidemia - Morbid obesity (HCC) 07/06/2014 - Obstructive sleep apnea syndrome 10/05/2015 DME: [facility], has not been able to tolerate CPAP. - Psoriasis 07/06/2014 - Uncontrolled type 2 diabetes mellitus without complication, without long-term current use of insulin (HCC) 02/24/2016 PAST SURGICAL HISTORY Procedure Laterality Date - LAP REPAIR INTIAL INGUINAL HERNIA Left 02/19/2017 large bard 3D Max - OPEN FIXATN PROX END/NECK FEMUR FX 1997 ORIF femur - REPAIR ING HERNIA,5+Y/O,REDUCIBL 01/25/11 Right FAMILY HISTORY Problem Relation Age of Onset - Hypertension Mother - Lipids Mother - Diabetes Mother - Obesity Mother - Prostate Cancer Paternal Grandfather - COPD Father - other (leukemia) Maternal Grandmother - Emphysema Maternal Grandfather Social History: Social History Substance Use Topics - Smoking status: Former Smoker Types: Cigarettes - Smokeless tobacco: Never Used Comment: Smoked very little - Alcohol use No No current facility-administered medications on file prior to encounter. Current Outpatient Prescriptions on File Prior to Encounter: Hydrochlorothiazide 12.5 mg capsule Take 1 capsule by mouth once daily. gabapentin (NEURONTIN) 100 mg capsule Take 1 capsule by mouth three times daily for 180 days. atorvastatin (LIPITOR) 80 mg tablet Take 1 tablet by mouth once daily. sertraline (ZOLOFT) 50 mg tablet Take 1.5 tablets by mouth once daily. metFORMIN ER (GLUCOPHAGE XR) 500 mg 24 hr tablet Take two tabs in AM and PM lisinopril (ZESTRIL, PRINIVIL) 20 mg tablet Take 1 tablet by mouth once daily. ezetimibe (ZETIA) 10 mg tablet Take 1 tablet by mouth once daily. ammonium lactate (LAC-HYDRIN) 12 % cream Apply 1 application to affected area as needed. triamcinolone acetonide (KENALOG) 0.5 % cream Apply 1 application to affected area twice daily. Apply sparingly to affected area. blood sugar diagnostic (RELION PRIME TEST STRIPS) test strip Test glucose 1 x per day. Dx: E11.65. Insulin use: no lancets (FREESTYLE LANCETS) 28 gauge misc Test blood sugar(s) one times daily. Dx: Type 2 DM - Uncontrolled E11.65 Insulin: No Blood-Glucose Meter (BLOOD GLUCOSE MONITORING) monitoring kit 1 Each as needed. COMPOUNDED PRESCRIPTION Knee High Compression Stockings 20- 30 mm, DX: venous insufficiency, chronic Current Facility-Administered Medications: lactated ringers infusion 30 mL/hr INTRAVENOUS CONTINUOUS Delmi T Adore Last Rate: 30 mL/hr at 08/14/18 0838 30 mL/hr at 08/14/18 0838 ceFAZolin 3 g in D5W 100 mL (ANCEF) 3 g INTRAVENOUS Pre-Op Once Delmi T Adore Allergies: ALLERGIES Allergen Reactions - Codeine Other: See Comments headache DOS EXAM: Adequate NPO status: Yes Anesthetic risks, benefits, alternatives, personnel and consent discussed: Yes Patient agrees to proceed: Yes Previous Anesthesia: No history of adverse event. Airway Assessment: MP 2; Neck ROM: Full ROM without neurologic symptoms; Airway Evaluation: No significant abnormalities Symptoms of Sleep Apnea: Snoring Dentition: Teeth intact Additional Physical Exam: Lungs: Patient health status unchanged since recent history and physical. See history and physical for exam findings. Cardiac: Patient health status unchanged since recent history and physical. See history and physical for exam findings. Additional Pertinent Findings: N/A Blood Products: Not anticipated for this procedure. Anesthetic Plan: General, Standard ASA Monitors Pain Management Plan: Parenteral or Oral ASA Class: 3 Other Medical Problems: None I have interviewed and examined the patient. I have reviewed the medical record and/or the pre-anesthesia evaluation, pertinent labs, and test results. Significant changes in the patient's condition since the History and Physical, not otherwise documented in primary service progress notes: No This contains updated information obtained within 48 hours of Surgery/Procedure. SIGNATURE: Behzad Mckeon MD PATIENT NAME: Edd Dupont DATE: August 14, 2018 TIME: 9:07 AM CSN: [id number] PT ED Observed: 08/14/2018 Status: COMPLETED Source: [place] 8:08 AM CLINIC OTHER CAMPUS REPOSITORY HNO ID: [id number] Author: Arnaldo Burleson) LEEANNA Currie Service: Nursing Author Type: Registered Nurse Type: Patient Education Filed: 08/14/2018 8:09 AM Note Text: PATIENT EDUCATION TOPIC: PROCEDURE / SURGERY: Pre-op Teaching: PATIENT NAME: Edd Dupont [place] LOCATION[place] [facility] [facility] READINESS TO LEARN COGNITIVE ABILITY: Alert and oriented MOTIVATION TO LEARN: Interested FAMILY SUPPORT: Moderate - Family present but overwhelmed INSTRUCTION PROVIDED TO: Patient PATIENT LEARNS BEST BY: Individual Instruction Verbal Instruction FACTORS AFFECTING LEARNING: None PHYSICAL LIMITATIONS AFFECTING LEARNING: None LEARNING RESPONSE DIAGNOSIS: ADULT: PATIENT/FAMILY RESPONSE: Verbalizes understanding of: METHOD OF INSTRUCTION: Individual instruction Verbal instruction FOLLOW-UP PLAN: Patient instructed to call with any further issues Follow-up with Primary Care INSTRUCTIONAL AIDS USED: NA SUPPLEMENTAL MATERIAL PROVIDED TO PATIENT: None REFERRAL (RECOMMENDATION): None Electronically Signed By: Arnaldo Currie RN OPERATIVE NO Observed: 08/14/2018 Status: COMPLETED Source: [place] 12:00 AM [facility] OTHER CAMPUS REPOSITORY O ID: [id number] Author: Delmi Avitia Service: General Surgery Author Type: Physician Type: Operative Report Filed: 08/15/2018 7:13 PM Note Text: [facility] - Operative Report EDD DUPONT : 1975 AGE: 43. SEX: M PATIENT TYPE: A HOSP [facility] [place]: [facility] LOCATION: [facility] ATTENDING PHYSICIAN: DELMI AVITIA CSN NUMBER: [id number] DATE OF SURGERY/PROCEDURE: 08/14/2018 INCISION/PROCEDURE START TIME: 10:14. INCISION CLOSE/PROCEDURE END TIME: 11:29. PREOPERATIVE DIAGNOSIS: Umbilical incisional hernia. POSTOPERATIVE DIAGNOSIS: Umbilical incisional hernia with 2 cm defect. SURGEON: Delmi Avitia M.D. EMBEDDED SYSTEMS ENGINEER: Physician Wine Manager: Marisa Agosto SURGERY/PROCEDURE: Laparoscopic incisional hernia repair using a Covidien Parietene DS 12 cm deering mesh. Reference #[id number] and lot #[id number]. Expires 08/16/2019. ANESTHESIA: General endotracheal. ASA: 3. IV FLUIDS: 1200 cc. ESTIMATED BLOOD LOSS: 10 cc. URINE OUTPUT: There is no catheter. FINDINGS: As noted above. SPECIMENS: Hernia sac and falciform. DRAINS: None. COMPLICATION: None. DISPOSITION: The patient was taken to PACU in stable condition. DESCRIPTION OF PROCEDURE: The patient was brought to the operating suite after sign- in was performed in the holding area, verifying patient, site, procedure, position, critical nursing information, VTE, antibiotic prophylaxis. The patient received 3 g of Ancef and sequential compression devices placed. Following induction of general anesthetic, the patient's abdomen was prepped and draped in the usual fashion. Time- out was performed verifying patient, site, procedure and position. Local anesthetic was injected below the previous umbilical incision. Dissection down to subcutaneous tissue. The hernia sac was identified, dissected open and a balloon 10 mm trocar was placed into the hernia sac with the balloon inflated. Pneumoperitoneum to 15 mm was insufflated. Visual inspection revealed no incarceration and the fascial defect was approximately 2 cm. At this point, three 5 mm ports were placed in the left lateral position. The hernia sac was dissected off the subcutaneous tissues, both laparoscopic and open and sent to Pathology. A Harmonic scalpel/Sonicision was used to divide and take down the falciform ligament to prevent tightening of the falciform over the mesh. Once this was completed, the 12 cm circular mesh was placed intra-abdominally. Transfixing Prolene sutures at 6, 12, 9 and 3 o'clock were placed. Following this, multiple around the clock tacks using both a ProTack permanent Tacker and a ReliaTack articulating tacker. Once this was completed with good fixation of the mesh, one additional Prolene was placed through the periumbilical fascial defect through the center of the mesh. With good placement of the mesh, the 5 ports under direct visualization for the lower 2 and third removed after pneumoperitoneum was released. Subcutaneous fat at the umbilicus was closed with interrupted 3-0 Vicryl sutures. Skin was closed with interrupted 4-0 Monocryl subcuticular sutures. Steri-Strips were placed on the 4 transfixing fascial sutures and the 5 mm and 10 mm port site. Dressings were applied. The patient was brought to recovery room in stable condition. Delmi Avitia M.D. RG:[id number] /[id number] NURSING PROG Observed: 08/09/2018 Status: COMPLETED Source: [place] 1:17 PM CLINIC OTHER CAMPUS REPOSITORY HNO ID: [id number] Author: Dayami SahuRn) LEEANNA Dewitt Service: Nursing Author Type: Registered Nurse Type: Nursing Progress Note Filed: 08/09/2018 1:21 PM Note Text: PACC Nurse Progress Note History AND Physical: [facility] Visit Date: 08/02/18 Original HANDP Date: 08/02/18 ED visit Date: N/A Outside HANDP Scanned Date: N/A Labs Within Last 6 Months: Labs pending from 08/02/18 PACC visit Hgba1c 05/2018 8.2 Imaging Within Last 12 Months: N/A Cardiac Testing: Ekg pending from 08/02/18 P[facility] visit BMI Percentile (PEDS): N/A BMI 43.9 Risk Assessment: N/A Anesthesia Review: Poor dentition- missing front upper teeth Narrative: Skin: erythmema left LE - Left LE cellulitis- on Bactrim since 07/30 and improving- message sent to Dr Avitia regarding Cellulitis by provider HX BAN- no cpap, edema LLE Pre-op Considerations: HX DM- oral med Chart Check: IN PROGRESS pending LABS and OK to proceed per Dr Avitia regarding cellulitis. Dayami Dewitt RN August 02, 2018 10:28 AM 08/02/18 2:30pm No apparent response from Dr Avitia in epic. Called office and spoke with nurse, Sergio, who will check with Dr Avitia and call me back with response. LEEANNA Chambers 08/02/18 2:35 pm Rec' call back from Sergio-Dr Avitia checked his In Box-Pt needs to be cancelled per Dr Avitia. Sergio aware office needs to call pt . LEEANNA Chambers Addendum 08/09/18 1:20 pm Pt surgery was cancelled for 08/05/18 due to cellulitis. Per Dr Avitia OV notes from 08/07/18... THe patient developed LLE cellulitis causing the case to be postoned. HE was treated with elevation and antibiotics. The cellulitis has resolved and he is ready to reschedule surgery Pt now scheduled for 08/14/18 Cbc/diff result from 08/02/18 wnl. Bmp 08/02/18-BS 149-hx of DM. Ekg reuslt from 08/02/18 NSR. Chart check complete LEEANNA Chambers PROGRESS Observed: 08/07/2018 Status: COMPLETED Source: [place] 9:32 PM [facility] REPOSITORY HNO ID: [id number] Author: eDlmi Avitia Service: (none) Author Type: Physician Type: Progress Notes Filed: 08/07/2018 9:34 PM Note Text: HISTORY AND PHYSICAL Edd Dupont 1975 REFERRING PHYSICIAN: Lashay Felton(Lizzie)* CHIEF COMPLAINT: Consult (Consult Ventral hernia) HPI: Edd is a 43 year old male with a complaint of a bulge and discomfort in his prior umbilical incision. The patient notes discomfort in this area with lifting, coughing and moving. The symptoms have increased, over the past few weeks. The patient notes no symptoms of bowel obstruction and denies nausea or vomiting. The patient was seen by his primary care physician who felt the patient has a hernia. Edd was referred for evaluation and treatment. The patient is being seen by me today at the request of Dr. Tomas Delgado MD for my opinion and advice regarding incisional/umbilical. THe patient developed LLE cellulitis causing the case to be postoned. HE was treated with elevation and antibiotics. The cellulitis has resolved and he is ready to reschedule surgery. PAST MEDICAL HISTORY Diagnosis Date - Bilateral leg edema 10/05/2015 - Bilateral leg edema 10/05/2015 - Essential hypertension, benign - Hyperlipidemia - Morbid obesity (HCC) 07/06/2014 - Obstructive sleep apnea syndrome 10/05/2015 DME: [facility], has not been able to tolerate CPAP. - Psoriasis 07/06/2014 - Uncontrolled type 2 diabetes mellitus without complication, without long-term current use of insulin ([facility]) 02/24/2016 PAST SURGICAL HISTORY Procedure Laterality Date - LAP REPAIR INTIAL INGUINAL HERNIA Left 02/19/2017 large bard 3D Max - OPEN FIXATN PROX END/NECK FEMUR FX 1997 ORIF femur - REPAIR ING HERNIA,5+Y/O,REDUCIBL 01/25/11 Right Current Outpatient Prescriptions: Hydrochlorothiazide 12.5 mg capsule Take 1 capsule by mouth once daily. sulfamethoxazole-trimethoprim (BACTRIM DS) 800-160 mg per tablet Take 1 tablet by mouth twice daily for 10 days. gabapentin (NEURONTIN) 100 mg capsule Take 1 capsule by mouth three times daily for 180 days. atorvastatin (LIPITOR) 80 mg tablet Take 1 tablet by mouth once daily. ammonium lactate (LAC-HYDRIN) 12 % cream Apply 1 application to affected area as needed. triamcinolone acetonide (KENALOG) 0.5 % cream Apply 1 application to affected area twice daily. Apply sparingly to affected area. sertraline (ZOLOFT) 50 mg tablet Take 1.5 tablets by mouth once daily. metFORMIN ER (GLUCOPHAGE XR) 500 mg 24 hr tablet Take two tabs in AM and PM lisinopril (ZESTRIL, PRINIVIL) 20 mg tablet Take 1 tablet by mouth once daily. ezetimibe (ZETIA) 10 mg tablet Take 1 tablet by mouth once daily. blood sugar diagnostic (RELION PRIME TEST STRIPS) test strip Test glucose 1 x per day. Dx: E11.65. Insulin use: no lancets (FREESTYLE LANCETS) 28 gauge misc Test blood sugar(s) one times daily. Dx: Type 2 DM - Uncontrolled E11.65 Insulin: No Blood-Glucose Meter (BLOOD GLUCOSE MONITORING) monitoring kit 1 Each as needed. COMPOUNDED PRESCRIPTION Knee High Compression Stockings 20- 30 mm, DX: venous insufficiency, chronic No current facility-administered medications for this visit. 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 PHYSICAL EXAMINATION: General: The patient is 43 year old male, well nourished, well hydrated in no acute distress. The patient is oriented to time, place, and person. VITALS: Blood pressure 160/80, pulse 72, height 180.3 cm (5' 11), weight (!) 142.9 kg (315 lb). Body mass index is 43.93 kg/m?. HEENT: Normal cephalic, ataumatic, pupils are equally round, sclera are anicteric, mucous membranes are moist, oropharynx is clear. Neck has no masses, asymmetry or lymphadenopathy. Thyroid is unremarkable. Respiratory: Clear to auscultation and percussion. Normal respiratory excursion and pattern. Cardiac: Examination is regular rate and rhythm. Abdominal exam: Soft, nontender, with no palpable masses. No hepatosplenomegaly. A small, non reducible incisional hernia Rectal exam: exam deferred Extremities: no clubbing, cyanosis or edema. No adenopathy. Other: LABORATORY VALUES: As Noted RADIOLOGIC STUDIES: As Noted Assessment IMPRESSION: prior umbilical incisional hernia PLAN: My plan is to perform a laparoscopic incisional hernia repair with mesh. The planned surgical procedure was discussed extensively with the patient. The risks, benefits, anticipated outcomes and possible complications were mentioned. Edd aguileraands that all hernia repair surgery has a chance of recurrence and/or chronic post operative pain. My staff has also explained the procedure in understandable terms and the patient was given the option to take printed material concerning the planned procedure. The patient had the opportunity to ask questions concerning the planned procedure. The patient freely consents to the planned procedure. My findings have been communicated to Dr. Tomas Delgado MD via shared medical record. This note will be forwarded to Dr. Tomas Delgado MD. Diagnoses: (K43.2) Incisional hernia, without obstruction or gangrene (primary encounter diagnosis) Anticipated CPT Code: laparoscopic incisional hernia repair - incarcerated - 39652-331 Anticipated Anesthetic: General Patient weight: Blood pressure 160/80, pulse 72, height 180.3 cm (5' 11), weight (!) 142.9 kg (315 lb). BMI: Body mass index is 43.93 kg/m?. 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 Delmi Avitia MD CNOV Observed: 08/07/2018 Status: COMPLETED Source: [place] 8:40 AM [facility] REPOSITORY Office Visit (GENSWS) KIAHEDD Longoria ([id number]) 1975 M Date Time Provider Department 08/07/18 8:40 AM DELMI AVITIA During your visit today, we recorded the following information about you: Pulse Blood pressure Weight Height 72/minute 160/80 142.9 kg 1.803 m Delmi Avitia MD 08/07/2018 9:34 PM Signed HISTORY AND PHYSICAL Edd Longoria Kiah 1975 REFERRING PHYSICIAN: Lashay Felton([facility]htemocC)* CHIEF COMPLAINT: Consult (Consult Ventral hernia) HPI: Edd is a 43 year old male with a complaint of a bulge and discomfort in his prior umbilical incision. The patient notes discomfort in this area with lifting, coughing and moving. The symptoms have increased, over the past few weeks. The patient notes no symptoms of bowel obstruction and denies nausea or vomiting. The patient was seen by his primary care physician who felt the patient has a hernia. Edd was referred for evaluation and treatment. The patient is being seen by me today at the request of Dr. Tomas Delgado MD for my opinion and advice regarding incisional/umbilical. THe patient developed LLE cellulitis causing the case to be postoned. HE was treated with elevation and antibiotics. The cellulitis has resolved and he is ready to reschedule surgery. PAST MEDICAL HISTORY Diagnosis Date - Bilateral leg edema 10/05/2015 - Bilateral leg edema 10/05/2015 - Essential hypertension, benign - Hyperlipidemia - Morbid obesity (HCC) 07/06/2014 - Obstructive sleep apnea syndrome 10/05/2015 DME: [facility], has not been able to tolerate CPAP. - Psoriasis 07/06/2014 - Uncontrolled type 2 diabetes mellitus without complication, without long-term current use of insulin (HCC) 02/24/2016 PAST SURGICAL HISTORY Procedure Laterality Date - LAP REPAIR INTIAL INGUINAL HERNIA Left 02/19/2017 large bard 3D Max - OPEN FIXATN PROX END/NECK FEMUR FX 1997 ORIF femur - REPAIR ING HERNIA,5+Y/O,REDUCIBL 01/25/11 Right Current Outpatient Prescriptions: Hydrochlorothiazide 12.5 mg capsule Take 1 capsule by mouth once daily. sulfamethoxazole-trimethoprim (BACTRIM DS) 800-160 mg per tablet Take 1 tablet by mouth twice daily for 10 days. gabapentin (NEURONTIN) 100 mg capsule Take 1 capsule by mouth three times daily for 180 days. atorvastatin (LIPITOR) 80 mg tablet Take 1 tablet by mouth once daily. ammonium lactate (LAC-HYDRIN) 12 % cream Apply 1 application to affected area as needed. triamcinolone acetonide (KENALOG) 0.5 % cream Apply 1 application to affected area twice daily. Apply sparingly to affected area. sertraline (ZOLOFT) 50 mg tablet Take 1.5 tablets by mouth once daily. metFORMIN ER (GLUCOPHAGE XR) 500 mg 24 hr tablet Take two tabs in AM and PM lisinopril (ZESTRIL, PRINIVIL) 20 mg tablet Take 1 tablet by mouth once daily. ezetimibe (ZETIA) 10 mg tablet Take 1 tablet by mouth once daily. blood sugar diagnostic (RELION PRIME TEST STRIPS) test strip Test glucose 1 x per day. Dx: E11.65. Insulin use: no lancets (FREESTYLE LANCETS) 28 gauge [facility] [place] blood sugar(s) one times daily. Dx: Type 2 DM - Uncontrolled E11.65 Insulin: No Blood-Glucose Meter (BLOOD GLUCOSE MONITORING) monitoring kit 1 Each as needed. COMPOUNDED PRESCRIPTION Knee High Compression Stockings 20- 30 mm, DX: venous insufficiency, chronic No current facility-administered medications for this visit. 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 PHYSICAL EXAMINATION: General: The patient is 43 year old male, well nourished, well hydrated in no acute distress. The patient is oriented to time, place, and person. VITALS: Blood pressure 160/80, pulse 72, height 180.3 cm (5' 11), weight (!) 142.9 kg (315 lb). Body mass index is 43.93 kg/m?. HEENT: Normal cephalic, ataumatic, pupils are equally round, sclera are anicteric, mucous membranes are moist, oropharynx is clear. Neck has no masses, asymmetry or lymphadenopathy. Thyroid is unremarkable. Respiratory: Clear to auscultation and percussion. Normal respiratory excursion and pattern. Cardiac: Examination is regular rate and rhythm. Abdominal exam: Soft, nontender, with no palpable masses. No hepatosplenomegaly. A small, non reducible incisional hernia Rectal exam: exam deferred Extremities: no clubbing, cyanosis or edema. No adenopathy. Other: LABORATORY VALUES: As Noted RADIOLOGIC STUDIES: As Noted Assessment IMPRESSION: prior umbilical incisional hernia PLAN: My plan is to perform a laparoscopic incisional hernia repair with mesh. The planned surgical procedure was discussed extensively with the patient. The risks, benefits, anticipated outcomes and possible complications were mentioned. Edd aguileraands that all hernia repair surgery has a chance of recurrence and/or chronic post operative pain. My staff has also explained the procedure in understandable terms and the patient was given the option to take printed material concerning the planned procedure. The patient had the opportunity to ask questions concerning the planned procedure. The patient freely consents to the planned procedure. My findings have been communicated to Dr. Tomas Delgado MD via shared medical record. This note will be forwarded to Dr. Tomas Delgado MD. Diagnoses: (K43.2) Incisional hernia, without obstruction or gangrene (primary encounter diagnosis) Anticipated CPT Code: laparoscopic incisional hernia repair - incarcerated - 85318-561 Anticipated Anesthetic: General Patient weight: Blood pressure 160/80, pulse 72, height 180.3 cm (5' 11), weight (!) 142.9 kg (315 lb). BMI: Body mass index is 43.93 kg/m?. 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 Delmi Avitia MD Referring Provider: TOMAS DELGADO [[id number]] Allergies As of Date: 08/07/2018 Noted Allergy Reaction CODEINE 01/12/2011 14 - Other: See Comments Comments: headache Date Reviewed: 08/07/2018 Reviewed by: Violeta Beck - Fully Assessed Reason for Visit: Cellulitis [488] Cmt: Left leg seen Hong MENESES on 07/30/2018- pt. will be finished with Bactrim on sunday08/07/18 Reason For Visit History Recorded Primary Visit Diagnosis:Incisional hernia, without obstruction or gangrene [K43.2] Prescriptions as of 08/07/2018 Sig: HYDROCHLOROTHIAZIDE 12.5 MG C* Take 1 capsule by mouth once * SULFAMETHOXAZOLE 800 MG-TRIME* Take 1 tablet by mouth twice * GABAPENTIN 100 MG CAPSULE Take 1 capsule by mouth three* ATORVASTATIN 80 MG TABLET Take 1 tablet by mouth once d* AMMONIUM LACTATE 12 % TOPICAL* Apply 1 application to affect* TRIAMCINOLONE ACETONIDE 0.5 %* Apply 1 application to affect* SERTRALINE 50 MG TABLET Take 1.5 tablets by mouth onc* METFORMIN ER 500 MG TABLET,EX* Take two tabs in AM and PM LISINOPRIL 20 MG TABLET Take 1 tablet by mouth once d* EZETIMIBE 10 MG TABLET Take 1 tablet by mouth once d* BLOOD SUGAR DIAGNOSTIC STRIPS Test glucose 1 x per day. Dx:* LANCETS 28 GAUGE Test blood sugar(s) one times* BLOOD-GLUCOSE METER KIT 1 Each as needed. COMPOUNDED PRESCRIPTION Knee High Compression Stockin* More... Problem List As Of Date 08/07/2018 Noted Resolved Psoriasis [L40.9] INVALID FOR* Priority: D Essential hypertension, benign [I10] INVALID FOR* Priority: A Mixed hyperlipidemia [E78.2] INVALID FOR* Priority: A Bilateral leg edema [R60.0] INVALID FOR*10/10/2016 Priority: B Well adult exam [Z00.00] INVALID FOR*10/10/2016 Priority: E More... Obstructive sleep apnea syndrome [G47.33] INVALID FOR*10/10/2016 Priority: B More... Morbid obesity due to excess calories (HCC) [E6*INVALID FOR* Priority: B Uncontrolled type 2 diabetes mellitus without c*INVALID FOR* Priority: A Urinary frequency [R35.0] INVALID FOR*10/10/2016 Priority: C Diabetic eye exam (HCC) [Z01.00, E11.9] INVALID FOR* Priority: A More... 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 Incisional hernia [K43.2] INVALID FOR* More... Follow-up and Disposition History Recorded Encounter Status:Closed by DELMI AVITIA MD on 08/07/18 HOSP Observed: 08/07/2018 Status: COMPLETED Source: [place] 12:00 AM CLINIC OTHER CAMPUS REPOSITORY Patient:Edd Dupont MRN: <[id number]> Height:5' 10.984(1.803 m) Weight:315 lb 0.6 oz (142.9 kg) Outpatient Medications as of 08/14/18: Hydrochlorothiazide 12.5 mg capsule gabapentin (NEURONTIN) 100 mg capsule atorvastatin (LIPITOR) 80 mg tablet ammonium lactate (LAC-HYDRIN) 12 % cream triamcinolone acetonide (KENALOG) 0.5 % cream sertraline (ZOLOFT) 50 mg tablet metFORMIN ER (GLUCOPHAGE XR) 500 mg 24 hr tablet lisinopril (ZESTRIL, PRINIVIL) 20 mg tablet ezetimibe (ZETIA) 10 mg tablet blood sugar diagnostic (RELION PRIME TEST STRIPS) test strip lancets (FREESTYLE LANCETS) 28 gauge [facility] [place] Blood-Glucose Meter (BLOOD GLUCOSE MONITORING) monitoring kit COMPOUNDED PRESCRIPTION Admission/Clinic Administered Medications as of 08/14/18: lactated ringers infusion ceFAZolin 3 g in D5W 100 mL (ANCEF) Problem List: Psoriasis [L40.9] Essential hypertension, benign [I10] Mixed hyperlipidemia [E78.2] Morbid obesity due to excess calories (HCC) [E66.01] Uncontrolled type 2 diabetes mellitus without complication, without long-term current use of insulin (HCC) [E11.65] Diabetic eye exam ([facility]) [Z01.00, E11.9] 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 Order is in EPIC. She is asking if order has been sent to [employer]. Mother asking if pt needs to have x-rays done soon or in 3 months prior to next appt. Please review and advise. VICKIE Wynne RN 08/13/2018 10:56 AM Signed Attempted to contact pt's mother but phone not accepting calls at this time. Order has not been sent to [facility]. Order would have been given to pt at time of visit. Our office can fax order to [employer] if pt has misplaced order. Also, pt should get xrays CAROLINE. Stefany Parikh RN 08/14/2018 8:21 AM Signed Left pt's mother VM to contact office to inform of the below. Progress Notes ([facility]): Delmi Avitia MD 08/07/2018 9:34 PM Signed HISTORY AND PHYSICAL Edd Dupont 1975 REFERRING PHYSICIAN: Lashay Felton(Lizzie)* CHIEF COMPLAINT: Consult (Consult Ventral hernia) HPI: Edd is a 43 year old male with a complaint of a bulge and discomfort in his prior umbilical incision. The patient notes discomfort in this area with lifting, coughing and moving. The symptoms have increased, over the past few weeks. The patient notes no symptoms of bowel obstruction and denies nausea or vomiting. The patient was seen by his primary care physician who felt the patient has a hernia. Edd was referred for evaluation and treatment. The patient is being seen by me today at the request of Dr. Tomas Delgado MD for my opinion and advice regarding incisional/umbilical. THe patient developed LLE cellulitis causing the case to be postoned. HE was treated with elevation and antibiotics. The cellulitis has resolved and he is ready to reschedule surgery. PAST MEDICAL HISTORY Diagnosis Date - Bilateral leg edema 10/05/2015 - Bilateral leg edema 10/05/2015 - Essential hypertension, benign - Hyperlipidemia - Morbid obesity (HCC) 07/06/2014 - Obstructive sleep apnea syndrome 10/05/2015 DME: [facility], has not been able to tolerate CPAP. - Psoriasis 07/06/2014 - Uncontrolled type 2 diabetes mellitus without complication, without long-term current use of insulin (HCC) 02/24/2016 PAST SURGICAL HISTORY Procedure Laterality Date - LAP REPAIR INTIAL INGUINAL HERNIA Left 02/19/2017 large bard 3D Max - OPEN FIXATN PROX END/NECK FEMUR FX 1997 ORIF femur - REPAIR ING HERNIA,5+Y/O,REDUCIBL 01/25/11 Right Current Outpatient Prescriptions: Hydrochlorothiazide 12.5 mg capsule Take 1 capsule by mouth once daily. sulfamethoxazole-trimethoprim (BACTRIM DS) 800-160 mg per tablet Take 1 tablet by mouth twice daily for 10 days. gabapentin (NEURONTIN) 100 mg capsule Take 1 capsule by mouth three times daily for 180 days. atorvastatin (LIPITOR) 80 mg tablet Take 1 tablet by mouth once daily. ammonium lactate (LAC-HYDRIN) 12 % cream Apply 1 application to affected area as needed. triamcinolone acetonide (KENALOG) 0.5 % cream Apply 1 application to affected area twice daily. Apply sparingly to affected area. sertraline (ZOLOFT) 50 mg tablet Take 1.5 tablets by mouth once daily. metFORMIN ER (GLUCOPHAGE XR) 500 mg 24 hr tablet Take two tabs in AM and PM lisinopril (ZESTRIL, PRINIVIL) 20 mg tablet Take 1 tablet by mouth once daily. ezetimibe (ZETIA) 10 mg tablet Take 1 tablet by mouth once daily. blood sugar diagnostic (RELION PRIME TEST STRIPS) test strip Test glucose 1 x per day. Dx: E11.65. Insulin use: no lancets (FREESTYLE LANCETS) 28 gauge misc Test blood sugar(s) one times daily. Dx: Type 2 DM - Uncontrolled E11.65 Insulin: No Blood-Glucose Meter (BLOOD GLUCOSE MONITORING) monitoring kit 1 Each as needed. COMPOUNDED PRESCRIPTION Knee High Compression Stockings 20- 30 mm, DX: venous insufficiency, chronic No current facility-administered medications for this visit. 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 PHYSICAL EXAMINATION: General: The patient is 43 year old male, well nourished, well hydrated in no acute distress. The patient is oriented to time, place, and person. VITALS: Blood pressure 160/80, pulse 72, height 180.3 cm (5' 11), weight (!) 142.9 kg (315 lb). Body mass index is 43.93 kg/m?. HEENT: Normal cephalic, ataumatic, pupils are equally round, sclera are anicteric, mucous membranes are moist, oropharynx is clear. Neck has no masses, asymmetry or lymphadenopathy. Thyroid is unremarkable. Respiratory: Clear to auscultation and percussion. Normal respiratory excursion and pattern. Cardiac: Examination is regular rate and rhythm. Abdominal exam: Soft, nontender, with no palpable masses. No hepatosplenomegaly. A small, non reducible incisional hernia Rectal exam: exam deferred Extremities: no clubbing, cyanosis or edema. No adenopathy. Other: LABORATORY VALUES: As Noted RADIOLOGIC STUDIES: As Noted Assessment IMPRESSION: prior umbilical incisional hernia PLAN: My plan is to perform a laparoscopic incisional hernia repair with mesh. The planned surgical procedure was discussed extensively with the patient. The risks, benefits, anticipated outcomes and possible complications were mentioned. Edd aguileraands that all hernia repair surgery has a chance of recurrence and/or chronic post operative pain. My staff has also explained the procedure in understandable terms and the patient was given the option to take printed material concerning the planned procedure. The patient had the opportunity to ask questions concerning the planned procedure. The patient freely consents to the planned procedure. My findings have been communicated to Dr. Tomas Delgado MD via shared medical record. This note will be forwarded to Dr. Tomas Delgado MD. Diagnoses: (K43.2) Incisional hernia, without obstruction or gangrene (primary encounter diagnosis) Anticipated CPT Code: laparoscopic incisional hernia repair - incarcerated - 18212-811 Anticipated Anesthetic: General Patient weight: Blood pressure 160/80, pulse 72, height 180.3 cm (5' 11), weight (!) 142.9 kg (315 lb). BMI: Body mass index is 43.93 kg/m?. 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 Delmi Avitia MD NURSING PROG Observed: 08/02/2018 Status: COMPLETED Source: [place] 10:27 AM CLINIC OTHER CAMPUS REPOSITORY HNO ID: [id number] Author: Dayami Burleson) LEEANNA Dewitt Service: Nursing Author Type: Registered Nurse Type: Nursing Progress Note Filed: 08/02/2018 2:35 PM Note Text: PACC Nurse Progress Note History AND Physical: PACC Visit Date: 08/02/18 Original HANDP Date: 08/02/18 ED visit Date: N/A Outside HANDP Scanned Date: N/A Labs Within Last 6 Months: Labs pending from 08/02/18 PACC visit Hgba1c 05/2018 8.2 Imaging Within Last 12 Months: N/A Cardiac Testing: Ekg pending from 08/02/18 PACC visit BMI Percentile (PEDS): N/A BMI 43.9 Risk Assessment: N/A Anesthesia Review: Poor dentition- missing front upper teeth Narrative: Skin: erythmema left LE - Left LE cellulitis- on Bactrim since 07/30 and improving- message sent to Dr Avitia regarding Cellulitis by provider HX BAN- no cpap, edema LLE Pre-op Considerations: HX DM- oral med Chart Check: IN PROGRESS pending LABS and OK to proceed per Dr Avitia regarding cellulitis. Dayami Dewitt RN August 02, 2018 10:28 AM 08/02/18 2:30pm No apparent response from Dr Avitia in epic. Called office and spoke with nurse, Sergio, who will check with Dr Avitia and call me back with response. LEEANNA Chambers 08/02/18 2:35 pm Rec' call back from Sergio-Dr Avitia checked his In Box-Pt needs to be cancelled per Dr Avitia. Sergio aware office needs to call pt . LEEANNA Chambers CBC AND DIFFERENTIAL Collected: 08/02/2018 Status: F Source: [place] 8:45 AM CLINIC MAIN CAMPUS REPOSITORY TYPE CODE TESTS RESULT OUT OF REFERENCE UNITS RANGE LAB WBC 3.70-11.00 k/uL WBC 5.11 LAB RBC 4.20-6.00 m/uL RBC 4.34 LAB HGB 13.0-17.0 g/dL Hemoglobin 13.8 LAB HCT 39.0-51.0 % Hematocrit 41.9 LAB MCV 80.0-100.0 fL MCV 96.5 LAB MCH 26.0-34.0 pG MCH 31.8 LAB MCHC 30.5-36.0 g/dL MCHC 32.9 LAB RDWCV 11.5-15.0 % RDW-CV 13.1 LAB PLTCT 150-400 k/uL Platelet Count 161 LAB MPV 9.0-12.7 fL MPV 11.7 LAB ANEUT % Neut% 69.1 LAB AANEUT 1.45-7.50 k/uL Abs Neut 3.53 LAB ALYMP % Lymph% 20.9 LAB AALYMP 1.00-4.00 k/uL Abs Lymph 1.07 LAB AMONO % Todd% 6.7 LAB AAMONO <0.87 k/uL Abs Todd 0.34 LAB AEOS % Eosin% 3.1 LAB AAEOS <0.46 k/uL Abs Eosin 0.16 LAB ABASO % Baso% 0.2 LAB AABASO <0.11 k/uL Abs Baso <0.03 Performed By: #### CBCDIF #### [facility] [address] [facility] [phone] BASIC METABOLIC PANL Collected: 08/02/2018 Status: F Source: [place] 8:45 AM CLINIC MAIN CAMPUS REPOSITORY TYPE CODE TESTS RESULT OUT OF REFERENCE UNITS RANGE LAB GLU 74-99 mg/dL High Glucose 149 Result Comment: The [place] [employer] (ADA) provides guidance for cutoff values for fasting glucose and random glucose. The ADA defines fasting as no caloric intake for at least 8 hours. Fas ting plasma glucose results between 100 to 125 mg/dL indicate increased risk for diabetes (prediabetes). Fasting plasma glucose results greater than or equal to 126 mg/dL meet the criteria for diagnosis of diabetes. In the absence of unequivocal hyperglycemia, results should be confirmed by repeat testing. In a patient with classic symptoms of hyperglycemia or hyperglycemic crisis, random plasma glucose results greater than or equal to 200 mg/dL meet the criteria for diagnosis of diabetes. Reference: Standards of Medical Care in Diabetes 2016, [place] [employer]. Diabetes Care. 2016.39(Suppl 1). LAB BUN 9-24 mg/dL BUN 15 LAB CRET 0.73-1.22 mg/dL Creatinine Low 0.70 LAB NA 136-144 mmol/L Sodium 137 LAB K 3.7-5.1 mmol/L Potassium 4.4 LAB CL 97-105 mmol/L Chloride 99 LAB CO2 22-30 mmol/L CO2 27 LAB AGAP 9-18 mmol/L Anion Gap 11 LAB CA 8.5-10.2 mg/dL Calcium, Total 9.5 LAB GFRAA eGFR- Amer. >60 LAB GFRNAA . eGFR-All Other Races >60 Result Comment: eGFR (Estimated GFR) Units of measure: mL/min/1.73 meters squared eGFR is derived from the reexpressed MDRD Study equation using the following parameters: serum creatinine, age, gender and race. The creatinine assay has been calibrated to be traceable to IDMS. An eGFR <60 mL/min/1.73m2 for >3 months is consistent with chronic kidney disease. Refer to KDOQI guidelines for clinical interpretation. In patients with unstable renal function, e.g. those with acute kidney injury, the eGFR may not accurately reflect actual GFR. Performed By: #### BMP #### [facility] [address] [facility] [phone] [id number] Observed: 08/02/2018 Status: F Source: [place] 8:35 AM [facility] REPOSITORY NAME : EDD DUPONT PID : [id number] : 1975 Gender : Male Race : ORD : [id number] Procedure Date : Aug 02 2018 08:35:38 Edit Date : Aug 02 2018 15:03:15 Diagnosis:NORMAL SINUS RHYTHM NORMAL ECG NO PREVIOUS ECGS AVAILABLE Confirmed by MASTER LOFTON M.D. ([id number]) on 08/02/2018 3:03:04 PM Ventricular Rate : 73 BPM Atrial Rate : 73 BPM P-R Interval : 130 ms QRS Duration : 108 ms Q-T Interval : 420 ms QTC Calculation(Bezet) : 462 ms P Superior : 18 degrees R Superior : 27 degrees T Superior : 28 degrees Test Reason : Location : [address] [place] [address] Overread By : MASTER LOFTON M.D. Edited By : MASTER LOFTON M.D. Referred By : ISABELL CHAN Acquired by : EM, HISTORY PHYSICAL Observed: 08/02/2018 Status: COMPLETED Source: [place] 8:15 AM [facility] REPOSITORY O ID: [id number] Author: Isabell Chan (Pa) Service: (none) Author Type: Physician Wine Manager Type: HANDP Filed: 08/02/2018 8:53 AM Note Text: HISTORY AND PHYSICAL EXAMINATION SERVICE DATE: 08/02/2018 SERVICE TIME: 8:15 AM PRIMARY CARE PHYSICIAN: Tomas Delgado MD REASON FOR VISIT: Edd Dupont is a 43 year old male who is scheduled for Laparoscopic herniorrhaphy incisional at the request of Dr. Delmi Avitia for consultation. My final recommendation will be communicated back to the requesting physician by way of shared medical record or letter. The patient has the following: ACTIVE PROBLEM LIST Psoriasis Essential Hypertension, Benign Mixed Hyperlipidemia Morbid Obesity Due to Excess Calories (Hcc) Uncontrolled Type 2 Diabetes Mellitus Without Complication, Without Long-Term Current Use of Insulin (Hcc) Diabetic Eye Exam (Hcc) Hidden Penis Eczema Obstructive Sleep Apnea Syndrome Incisional Hernia Subjective CHIEF COMPLAINT: hernia HPI: 43 yo male with incisional hernia over the past 5 weeks. There is a constant soreness but sharp with activity. No NVDC. no change in bowel habits. The pain is the LLQ. No prior treatments. Better with rest and supine. PAST MEDICAL HISTORY Diagnosis Date - Bilateral leg edema 10/05/2015 - Bilateral leg edema 10/05/2015 - Essential hypertension, benign - Hyperlipidemia - Morbid obesity (HCC) 07/06/2014 - Obstructive sleep apnea syndrome 10/05/2015 DME: [facility], has not been able to tolerate CPAP. - Psoriasis 07/06/2014 - Uncontrolled type 2 diabetes mellitus without complication, without long-term current use of insulin ([facility]) 02/24/2016 PAST SURGICAL HISTORY Procedure Laterality Date - LAP REPAIR INTIAL INGUINAL HERNIA Left 02/19/2017 large bard 3D Max - OPEN FIXATN PROX END/NECK FEMUR FX 1998 ORIF femur - REPAIR ING HERNIA,5+Y/O,REDUCIBL 01/25/11 Right FAMILY HISTORY Problem Relation Age of Onset - Hypertension Mother - Lipids Mother - Diabetes Mother - Obesity Mother - Prostate Cancer Paternal Grandfather - COPD Father - other (leukemia) Maternal Grandmother - Emphysema Maternal Grandfather SOCIAL HISTORY: Social History Marital status: Single Spouse name: Years of education: Number of children: Social History Main Topics Smoking status: Former Smoker Packs/day: 0.00 Years: 0.00 Types: Cigarettes Smokeless tobacco: Never Used Comment: Smoked very little Alcohol use: No Drug use: No Sexual activity: No Other Topics Concern Service No Blood Transfusions No Caffeine Concern No 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 sulfamethoxazole-trimethoprim (BACTRIM DS) 800-160 mg per tablet Take 1 tablet by mouth twice daily for 10 days. gabapentin (NEURONTIN) 100 mg capsule Take 1 capsule by mouth three times daily for 180 days. Taking atorvastatin (LIPITOR) 80 mg tablet Take 1 tablet by mouth once daily. Taking ammonium lactate (LAC-HYDRIN) 12 % cream Apply 1 application to affected area as needed. Taking triamcinolone acetonide (KENALOG) 0.5 % cream Apply 1 application to affected area twice daily. Apply sparingly to affected area. Taking sertraline (ZOLOFT) 50 mg tablet Take 1.5 tablets by mouth once daily. Taking metFORMIN ER (GLUCOPHAGE XR) 500 mg 24 hr tablet Take two tabs in AM and PM Taking lisinopril (ZESTRIL, PRINIVIL) 20 mg tablet Take 1 tablet by mouth once daily. Taking ezetimibe (ZETIA) 10 mg tablet Take 1 tablet by mouth once daily. Taking blood sugar diagnostic (RELION PRIME TEST STRIPS) test strip Test glucose 1 x per day. Dx: E11.65. Insulin use: no Taking lancets (FREESTYLE LANCETS) 28 gauge misc Test blood sugar(s) one times daily. Dx: Type 2 DM - Uncontrolled E11.65 Insulin: No Taking Blood-Glucose Meter (BLOOD GLUCOSE MONITORING) monitoring kit 1 Each as needed. Taking COMPOUNDED PRESCRIPTION Knee High Compression Stockings 20- 30 mm, DX: venous insufficiency, chronic Taking Medication Comments documented by Breanne Valiente on 11/02/2015 at 1605. CURRENT ALLERGIES: ALLERGIES Allergen Reactions - Codeine Other: See Comments headache REVIEW OF SYSTEMS: PAIN ASSESSMENT: Pain Pain Score: 5/10 Pain Location: Abdomen-Right Lower Quadrant Description: Aching Duration Units: Unknown Frequency: Continuous Intervention: Medication;Reposition;Relaxation General: No weight loss, malaise or fevers. Neuro: Postive for Peripheral neuropathy BL LE, Negative for TIA's Headaches Seizures Stroke-residual deficit Respiratory: Positive for BAN- no CPAP, Negative for Asthma, COPD, Home O2, Tobacco Use Cardiovascular: Positive for: HLD, Hypertension, Negative for Recent MT, Arrhythmia, Chest Pain, Valvular Heart Disease, DVT/PE GI: No history of GI symptoms or problems. No history of esophageal varices, recent ascites, or ETOH greater than 2 drinks per day. : No history of dysuria, frequency or incontinence,, stones or chronic kidney disease Endocrine: Diabetes Mellitus on oral agent, Diabetic Neuropathy 8.2 Hgb A1c 05/2018 Hematology: No history of bleeding or clotting disorder. Pt is not taking anti-coagulation or platelet medications. No history of hematological symptoms or problems. Oncology: No history of CA metastasis, chemo within 30 days, or radiotherapy within 90 days. Has not lost 10% of body wt in 6 months. No history of oncological symptoms or problems. Psych: Anxiety Musculoskeletal: Left LE pain Skin: erythmema left LE - cellulitis, on antibiotic since 07/30 Objective PHYSICAL EXAM: VITALS: BP 166/68 Pulse 74 Temp (Src) 98.9 (Tympanic) Resp 16 Ht 5' 11 (1.80m) Wt 315 lb (142.9kg) SpO2 97% BMI 43.95 kg/(m2). General: Alert and oriented, No acute distress, Morbidly obese Skin: Erythema, LLE improving cellulitis HEENT: EOM, pupils equal, round and reactive. poor dentition Cardiovascular: Normal S1 AND S2, no rubs, murmurs or gallops. No JVD. Pulse regular. Lungs: Normal breath sounds, no wheezes or crackles. Abdomen: Tender LLQ, hernia Extremities: Edema LLE, antibiotics for Cellulitis since 07/30 Neurological: Normal cognition and motor skills. Pulses: Carotid and radial pulses normal +2. Diagnostic tests reviewed for today's visit: Lab Value Units Date High Low HB No results within date range. HCT No results within date range. WBC No results within date range. PLT No results within date range. NA 136 mmol/L 06/10/2018 144 136 K 4.1 mmol/L 06/10/2018 5.1 3.7 GLUC 147 mg/dL 06/10/2018 99 74 BUN 11 mg/dL 06/10/2018 24 9 CREAT 0.55 mg/dL 06/10/2018 1.22 0.73 PTSEC No results within date range. INR No results within date range. APTT No results within date range. ALT 58 U/L 06/10/2018 54 10 AST 54 U/L 06/10/2018 40 14 TBILI 0.6 mg/dL 06/10/2018 1.3 0.2 TSH No results within date range. Lab Value Units Date High Low HCGQT No results within date range. UHCG No results within date range. HCG, BODY* No results within date range. Lab Value Units Date High Low ABORHD No results within date range. ABSCREEN No results within date range. Hemoglobin A1C (%) Date Value 06/10/2018 8.2 12/22/2017 6.7 08/27/2017 7.3 09/23/2016 7.1 05/27/2016 6.6 Most recent labs Assessment ASSESSMENT Diabetes - Hgb A1c 8.2 HTN - high today Hyperlipidemia Morbid Obesity BMI 43.9 BAN - Patient is not able to use CPAP/BIPAP Poor dentition- missing front upper teeth Left LE cellulitis- on Bactrim since 07/30 and improving- message sent to Dr Avitia regarding METS: Climb a flight of stairs or walk up a hill (5.50 METs) ASA Class: 4 ANESTHESIA FINDINGS: Intubation History: No history of difficult intubation Significant Anesthesia Considerations: None Airway Exam: General: Morbid obesity Mallampati Score is CLASS I ULBT: Class I - Lower incisors can bite the upper lip above the anthony line Neck: Normal appearance and function, Distance from hyoid to mentum during neck extension is at least 3 finger breaths Mouth: Large tongue size Dentition: poor dentition- missing front upper teeth Airway History: No abnormal airway history STOP BANG Score: BAN does not use CPAP/BiPAP PLAN This patient is optimally prepared for surgery pending LABS and OK to proceed per Dr Avitia regarding cellulitis. CONSULTS: surgeon for cellulitis. The Following Tests/Procedures Have Been Initiated: Orders Placed This Encounter CBC + DIFF ECG COMPLETE W INTERPRETATION Planned Anesthetic: General Instructions Given to Patient: Patient given verbal and written preop instructions and voices comprehension and compliance. SIGNATURE: Isabell Chan PA-C PATIENT NAME: Edd Dupont DATE: August 02, 2018 TIME: 8:15 AM PAGER/CONTACT #: PROGRESS Observed: 07/30/2018 Status: COMPLETED Source: [place] 9:22 AM [facility] REPOSITORY HNO ID: [id number] Author: Diana Felton Service: (none) Author Type: Physician Wine Manager Type: Progress Notes Filed: 07/30/2018 10:03 AM Note Text: Chief Complaint Patient presents with: Recheck Musculoskeletal Problem: patient is here for leg leg pain/swelling/reddness HPI Edd Dupont is a 43 year old male who presents here today for Recheck. Patient's right leg is better but about 3 days ago developed left leg swelling and redness. Forgot to take bp medication this morning but has had 2 other elevated readings when he did remember BP meds Past medical history, appointments, medications, allergies reviewed. Previous Medical History PAST MEDICAL HISTORY Diagnosis Date - Bilateral leg edema 10/05/2015 - Bilateral leg edema 10/05/2015 - Essential hypertension, benign - Hyperlipidemia - Morbid obesity (HCC) 07/06/2014 - Obstructive sleep apnea syndrome 10/05/2015 DME: [facility], has not been able to tolerate CPAP. - Psoriasis 07/06/2014 - Uncontrolled type 2 diabetes mellitus without complication, without long-term current use of insulin (HCC) 02/24/2016 Previous Surgical History PAST SURGICAL HISTORY Procedure Laterality Date - LAP REPAIR INTIAL INGUINAL HERNIA Left 02/19/2017 large bard 3D Max - OPEN FIXATN PROX END/NECK FEMUR FX 1997 ORIF femur - REPAIR ING HERNIA,5+Y/O,REDUCIBL 01/25/11 Right Family History FAMILY HISTORY Problem Relation Age of Onset - Hypertension Mother - Lipids Mother - Diabetes Mother - Obesity Mother - Prostate Cancer Paternal Grandfather - COPD Father - other (leukemia) Maternal Grandmother - Emphysema Maternal Grandfather Patient Allergies ALLERGIES Allergen Reactions - Codeine Other: See Comments headache Current Medications Current Outpatient Prescriptions on File Prior to Visit: gabapentin (NEURONTIN) 100 mg capsule Take 1 capsule by mouth three times daily for 180 days. atorvastatin (LIPITOR) 80 mg tablet Take 1 tablet by mouth once daily. ammonium lactate (LAC-HYDRIN) 12 % cream Apply 1 application to affected area as needed. triamcinolone acetonide (KENALOG) 0.5 % cream Apply 1 application to affected area twice daily. Apply sparingly to affected area. sertraline (ZOLOFT) 50 mg tablet Take 1.5 tablets by mouth once daily. metFORMIN ER (GLUCOPHAGE XR) 500 mg 24 hr tablet Take two tabs in AM and PM lisinopril (ZESTRIL, PRINIVIL) 20 mg tablet Take 1 tablet by mouth once daily. ezetimibe (ZETIA) 10 mg tablet Take 1 tablet by mouth once daily. lancets (FREESTYLE LANCETS) [facility] Test blood sugar(s) one times daily. Dx: Type 2 DM - Uncontrolled E11.65 Insulin: No Blood-Glucose Meter (BLOOD GLUCOSE MONITORING) monitoring kit 1 Each as needed. COMPOUNDED PRESCRIPTION Knee High Compression Stockings 20- 30 mm, DX: venous insufficiency, chronic blood sugar diagnostic (RELION PRIME TEST STRIPS) test strip Test glucose 1 x per day. Dx: E11.65. Insulin use: no No current facility-administered medications on file prior to visit. 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 Last 4 Encounter BP Readings: Date: BP: 07/30/2018 152/78 07/25/2018 162/68 07/15/2018 160/74 06/18/2018 138/68 General Appearance: Well appearing, alert, in no acute distress, well-hydrated, well nourished. and Morbidly obese. Skin: edema noted b/l.. Left lower extremity with tender erythema. Warm to the touch. Located anterior leg. Neg homans.. Lungs: lungs clear to auscultation. No wheezing, rhonchi, rales. Heart: RRR without murmur, gallop, or rubs. No ectopy. Health Maintenance List BP CONTROLLED (<130/80) due on 02/22/1994 STATIN MED ADHERENCE due on 08/17/2018 DIABETES MED ADHERENCE due on 08/17/2018 HBA1C due on 09/09/2018 DIABETIC FOOT EXAM due on 12/11/2018 URINE ALBUMIN:CREATININE RATIO due on 12/22/2018 LDL CHOLESTEROL due on 06/10/2019 ANNUAL PCP TEAM CHRONIC DISEASE VISIT due on 07/15/2019 DILATED RETINAL EXAM due on 07/29/2019 DTAP,TDAP,TD(2 - Td) due on 10/05/2025 ONE PNEUMOVAX PRIOR TO AGE 65 Completed Data reviewed ASSESSMENT/PLAN: 1. Cellulitis of skin - ICD9: 682.9, ICD10: L03.90 (primary diagnosis) - Begin treatment with Trimethoprim-sulfamethozazole (Bactrim) 1 DS PO BID - No lymphangetic streaking, this was defined for patient to watch for and to seek medical care immediately if appears - I would like to have patient return in 3 days for recheck. He already has appointment scheduled for pre op in [place] and says he will have the provider there check it. 2. Essential hypertension, benign - ICD9: 401.1, ICD10: I10 - poor control - Continue current medication(s) - Add HCTZ - Encouraged dietary sodium restriction/DASH diet - Recommended regular aerobic exercise. - Recommend home blood pressure monitoring, to bring results in on next visit - Follow up in 1 month for BP recheck. - Goal of BP <130/80 - BASIC METABOLIC PNL 3. Uncontrolled type 2 diabetes mellitus without complication, without long-term current use of insulin (HCC) - ICD9: 250.02, ICD10: E11.65 Patient had eye exam yesterday. Recheck is schedule in 3 months. Continue to monitor. LIZZIE REYES Observed: 07/30/2018 Status: COMPLETED Source: [place] 9:20 AM [facility] REPOSITORY [facility] EDD DUPONT ([id number]) 1975 M Date Time Provider Department 07/30/18 9:20 AM KOKI FELTON) M[place]AM During your visit today, we recorded the following information about you: Temperature Pulse Respiration Blood pressure 99.3 degrees 76/minute 12/minute 152/78 Weight 145.2 kg LASHAY FELTON PA-C 07/30/2018 10:03 AM Signed Chief Complaint Patient presents with: Recheck Musculoskeletal Problem: patient is here for leg leg pain/swelling/reddness HPI Edd Dupont is a 43 year old male who presents here today for Recheck. Patient's right leg is better but about 3 days ago developed left leg swelling and redness. Forgot to take bp medication this morning but has had 2 other elevated readings when he did remember BP meds Past medical history, appointments, medications, allergies reviewed. Previous Medical History PAST MEDICAL HISTORY Diagnosis Date - Bilateral leg edema 10/05/2015 - Bilateral leg edema 10/05/2015 - Essential hypertension, benign - Hyperlipidemia - Morbid obesity (HCC) 07/06/2014 - Obstructive sleep apnea syndrome 10/05/2015 DME: [facility], has not been able to tolerate CPAP. - Psoriasis 07/06/2014 - Uncontrolled type 2 diabetes mellitus without complication, without long-term current use of insulin ([facility]) 02/24/2016 Previous Surgical History PAST SURGICAL HISTORY Procedure Laterality Date - LAP REPAIR INTIAL INGUINAL HERNIA Left 02/19/2017 large bard 3D Max - OPEN FIXATN PROX END/NECK FEMUR FX 1997 ORIF femur - REPAIR ING HERNIA,5+Y/O,REDUCIBL 01/25/11 Right Family History FAMILY HISTORY Problem Relation Age of Onset - Hypertension Mother - Lipids Mother - Diabetes Mother - Obesity Mother - Prostate Cancer Paternal Grandfather - COPD Father - other (leukemia) Maternal Grandmother - Emphysema Maternal Grandfather Patient Allergies ALLERGIES Allergen Reactions - Codeine Other: See Comments headache Current Medications Current Outpatient Prescriptions on File Prior to Visit: gabapentin (NEURONTIN) 100 mg capsule Take 1 capsule by mouth three times daily for 180 days. atorvastatin (LIPITOR) 80 mg tablet Take 1 tablet by mouth once daily. ammonium lactate (LAC-HYDRIN) 12 % cream Apply 1 application to affected area as needed. triamcinolone acetonide (KENALOG) 0.5 % cream Apply 1 application to affected area twice daily. Apply sparingly to affected area. sertraline (ZOLOFT) 50 mg tablet Take 1.5 tablets by mouth once daily. metFORMIN ER (GLUCOPHAGE XR) 500 mg 24 hr tablet Take two tabs in AM and PM lisinopril (ZESTRIL, PRINIVIL) 20 mg tablet Take 1 tablet by mouth once daily. ezetimibe (ZETIA) 10 mg tablet Take 1 tablet by mouth once daily. lancets (FREESTYLE LANCETS) 28 gauge misc Test blood sugar(s) one times daily. Dx: Type 2 DM - Uncontrolled E11.65 Insulin: No Blood-Glucose Meter (BLOOD GLUCOSE MONITORING) monitoring kit 1 Each as needed. COMPOUNDED PRESCRIPTION Knee High Compression Stockings 20- 30 mm, DX: venous insufficiency, chronic blood sugar diagnostic (RELION PRIME TEST STRIPS) test strip Test glucose 1 x per day. Dx: E11.65. Insulin use: no No current facility-administered medications on file prior to visit. 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 Last 4 Encounter BP Readings: Date: BP: 07/30/2018 152/78 07/25/2018 162/68 07/15/2018 160/74 06/18/2018 138/68 General Appearance: Well appearing, alert, in no acute distress, well-hydrated, well nourished. and Morbidly obese. Skin: edema noted b/l.. Left lower extremity with tender erythema. Warm to the touch. Located anterior leg. Neg homans.. Lungs: lungs clear to auscultation. No wheezing, rhonchi, rales. Heart: RRR without murmur, gallop, or rubs. No ectopy. Health Maintenance List BP CONTROLLED (<130/80) due on 02/22/1994 STATIN MED ADHERENCE due on 08/17/2018 DIABETES MED ADHERENCE due on 08/17/2018 HBA1C due on 09/09/2018 DIABETIC FOOT EXAM due on 12/11/2018 URINE ALBUMIN:CREATININE RATIO due on 12/22/2018 LDL CHOLESTEROL due on 06/10/2019 ANNUAL PCP TEAM CHRONIC DISEASE VISIT due on 07/15/2019 DILATED RETINAL EXAM due on 07/29/2019 DTAP,TDAP,TD(2 - Td) due on 10/05/2025 ONE PNEUMOVAX PRIOR TO AGE 65 Completed Data reviewed ASSESSMENT/PLAN: 1. Cellulitis of skin - ICD9: 682.9, ICD10: L03.90 (primary diagnosis) - Begin treatment with Trimethoprim-sulfamethozazole (Bactrim) 1 DS PO BID - No lymphangetic streaking, this was defined for patient to watch for and to seek medical care immediately if appears - I would like to have patient return in 3 days for recheck. He already has appointment scheduled for pre op in [place] and says he will have the provider there check it. 2. Essential hypertension, benign - ICD9: 401.1, ICD10: I10 - poor control - Continue current medication(s) - Add HCTZ - Encouraged dietary sodium restriction/DASH diet - Recommended regular aerobic exercise. - Recommend home blood pressure monitoring, to bring results in on next visit - Follow up in 1 month for BP recheck. - Goal of BP <130/80 - BASIC METABOLIC PNL 3. Uncontrolled type 2 diabetes mellitus without complication, without long-term current use of insulin (HCC) - ICD9: 250.02, ICD10: E11.65 Patient had eye exam yesterday. Recheck is schedule in 3 months. Continue to monitor. LIZZIE REYES PA-C 07/30/2018 9:39 AM Signed Follow up in 1 month. Please get lab (nonfasting) before follow up. Referring Provider: LASHAY FELTON(LIZZIE) [[id number]] Allergies As of Date: 07/30/2018 Noted Allergy Reaction CODEINE 01/12/2011 14 - Other: See Comments Comments: headache Date Reviewed: 07/27/2018 Reviewed by: Delmi Avitia - Fully Assessed Reason for Visit: Recheck [92] Musculoskeletal Problem [69] Cmt: patient is here for leg leg pain/swelling/reddness Primary Visit Diagnosis:Cellulitis of skin [L03.90] Other Visit Diagnoses:Essential hypertension, benign [I10] Uncontrolled type 2 diabetes mellitus without complication, without long-term current use of insulin (HCC) [E11.65] Order(s):Hydrochlorothiazide 12.5 mg capsuleTake 1 capsule by mouth once daily.Disp: 30 capsuleRfl: 3 sulfamethoxazole-trimethoprim (BACTRIM DS) 800-160 mg per tabletTake 1 tablet by mouth twice daily for 10 days.Disp: 20 tabletRfl: 0 BASIC METABOLIC PNL [SQBMP] Order #: [id number] FUTURE Prescriptions as of 07/30/2018 Sig: GABAPENTIN 100 MG CAPSULE Take 1 capsule by mouth three* ATORVASTATIN 80 MG TABLET Take 1 tablet by mouth once d* AMMONIUM LACTATE 12 % TOPICAL* Apply 1 application to affect* TRIAMCINOLONE ACETONIDE 0.5 %* Apply 1 application to affect* SERTRALINE 50 MG TABLET Take 1.5 tablets by mouth onc* METFORMIN ER 500 MG TABLET,EX* Take two tabs in AM and PM LISINOPRIL 20 MG TABLET Take 1 tablet by mouth once d* EZETIMIBE 10 MG TABLET Take 1 tablet by mouth once d* LANCETS 28 GAUGE Test blood sugar(s) one times* BLOOD-GLUCOSE METER KIT 1 Each as needed. COMPOUNDED PRESCRIPTION Knee High Compression Stockin* HYDROCHLOROTHIAZIDE 12.5 MG C* Take 1 capsule by mouth once * SULFAMETHOXAZOLE 800 MG-TRIME* Take 1 tablet by mouth twice * BLOOD SUGAR DIAGNOSTIC STRIPS Test glucose 1 x per day. Dx:* More... Problem List As Of Date 07/30/2018 Noted Resolved Psoriasis [L40.9] INVALID FOR* Priority: D Essential hypertension, benign [I10] INVALID FOR* Priority: A Mixed hyperlipidemia [E78.2] INVALID FOR* Priority: A Bilateral leg edema [R60.0] INVALID FOR*10/10/2016 Priority: B Well adult exam [Z00.00] INVALID FOR*10/10/2016 Priority: E More... Obstructive sleep apnea syndrome [G47.33] INVALID FOR*10/10/2016 Priority: B More... Morbid obesity due to excess calories (HCC) [E6*INVALID FOR* Priority: B Uncontrolled type 2 diabetes mellitus without c*INVALID FOR* Priority: A Urinary frequency [R35.0] INVALID FOR*10/10/2016 Priority: C Diabetic eye exam (HCC) [Z01.00, E11.9] INVALID FOR* Priority: A More... 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 Incisional hernia [K43.2] INVALID FOR* More... Other instructions from your clinician: Follow up in 1 month. Please get lab (nonfasting) before follow up. Prescriptions ordered this encounter Disp Refills Start End HYDROCHLOROTHIAZIDE 12.5 MG CAPSULE 30 c* 3 07/30/2018 Route: ORAL Sig: Take 1 capsule by mouth once daily. SULFAMETHOXAZOLE 800 MG-TRIMETHOPRIM* 20 t* 0 07/30/2018 08/09/2018 Cmt: Ok to give generic equivalent Route: ORAL Sig: Take 1 tablet by mouth twice daily for 10 days. Disposition: Return in about 1 month (around 08/29/2018) for recheck with me. Follow-up and Disposition History Recorded Letter Text [facility] [address], [place] [id number] Edd Dupont [address] [address] Clinic #: [id number] 07/30/2018 To Whom it May Concern, Edd Dupont should only be on light duty at work from 07/30/18 through 08/02/18. No standing for extensive period of time due to peripheral edema and cellulitis. Sincerely, Lashay Felton PA-C Encounter Status:Closed by LASHAY TINEO on 07/30/18 PROGRESS Observed: 07/27/2018 Status: COMPLETED Source: [place] 11:46 AM [facility] REPOSITORY HNO ID: [id number] Author: Delmi Avitia Service: (none) Author Type: Physician Type: Progress Notes Filed: 07/27/2018 11:49 AM Note Text: HISTORY AND PHYSICAL Edd Dupont 1975 REFERRING PHYSICIAN: Lashay Felton(Lizzie)* CHIEF COMPLAINT: Consult (Consult Ventral hernia) HPI: Edd is a 43 year old male with a complaint of a bulge and discomfort in his prior umbilical incision. The patient notes discomfort in this area with lifting, coughing and moving. The symptoms have increased, over the past few weeks. The patient notes no symptoms of bowel obstruction and denies nausea or vomiting. The patient was seen by his primary care physician who felt the patient has a hernia. Edd was referred for evaluation and treatment. The patient is being seen by me today at the request of Dr. Tomas Delgado MD for my opinion and advice regarding incisional/umbilical. PAST MEDICAL HISTORY Diagnosis Date - Bilateral leg edema 10/05/2015 - Bilateral leg edema 10/05/2015 - Essential hypertension, benign - Hyperlipidemia - Morbid obesity (HCC) 07/06/2014 - Obstructive sleep apnea syndrome 10/05/2015 DME: [facility], has not been able to tolerate CPAP. - Psoriasis 07/06/2014 - Uncontrolled type 2 diabetes mellitus without complication, without long-term current use of insulin (HCC) 02/24/2016 PAST SURGICAL HISTORY Procedure Laterality Date - LAP REPAIR INTIAL INGUINAL HERNIA Left 02/19/2017 large bard 3D Max - OPEN FIXATN PROX END/NECK FEMUR FX 1997 ORIF femur - REPAIR ING HERNIA,5+Y/O,REDUCIBL 01/25/11 Right Current Outpatient Prescriptions: gabapentin (NEURONTIN) 100 mg capsule Take 1 capsule by mouth three times daily for 180 days. atorvastatin (LIPITOR) 80 mg tablet Take 1 tablet by mouth once daily. ammonium lactate (LAC-HYDRIN) 12 % cream Apply 1 application to affected area as needed. triamcinolone acetonide (KENALOG) 0.5 % cream Apply 1 application to affected area twice daily. Apply sparingly to affected area. sertraline (ZOLOFT) 50 mg tablet Take 1.5 tablets by mouth once daily. metFORMIN ER (GLUCOPHAGE XR) 500 mg 24 hr tablet Take two tabs in AM and PM lisinopril (ZESTRIL, PRINIVIL) 20 mg tablet Take 1 tablet by mouth once daily. ezetimibe (ZETIA) 10 mg tablet Take 1 tablet by mouth once daily. lancets (FREESTYLE LANCETS) 28 gauge misc Test blood sugar(s) one times daily. Dx: Type 2 DM - Uncontrolled E11.65 Insulin: No Blood-Glucose Meter (BLOOD GLUCOSE MONITORING) monitoring kit 1 Each as needed. COMPOUNDED PRESCRIPTION Knee High Compression Stockings 20- 30 mm, DX: venous insufficiency, chronic blood sugar diagnostic (RELION PRIME TEST STRIPS) test strip Test glucose 1 x per day. Dx: E11.65. Insulin use: no No current facility-administered medications for this visit. 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 Sleep Concern Yes Stress Concern Yes Comment:work, going through divorce Weight Concern Yes Special Diet Yes Comment:diabetic Back Care No Exercise No Bike Helmet No Comment:na Seat Belt No FAMILY HISTORY: FAMILY HISTORY Problem Relation Age of Onset - Hypertension Mother - Lipids Mother - Diabetes Mother - Obesity Mother - Prostate Cancer Paternal Grandfather - COPD Father - other (leukemia) Maternal Grandmother - Emphysema Maternal Grandfather REVIEW OF SYMPTOMS: The review of systems data was entered by the nurse and reviewed by me Nursing Notes: Nell Urbano LPN 07/25/2018 10:34 AM Signed REVIEW OF SYSTEMS: General: The patient NOTES fatigue, denies weight loss, denies weight gain, NOTES feeling hot, and denies feelings of cold. Eyes: The patient denies glaucoma, denies eye injury/surgery, wears glasses or contacts. Ear/Nose/Throat: The patient denies allergies, denies hayfever, denies ear infections, and NOTES bloody noses. Cardiovascular: The patient denies chest pain, denies heart disease, NOTES high blood pressure,denies cardiac stent, denies prior heart attack, denies irregular heart beat, NOTES high cholesterol, denies poor circulation, denies heart failure, other cardiac issues, denies claudication, denies cold feet, denies peripheral arterial stent. Respiratory: The patient denies tuberculosis, denies pneumonia, denies frequent cough, denies pulmonary embolism, denies shortness of breath, and denies coughing up blood. Gastrointestinal: The patient denies difficulty swallowing, denies acid reflux, denies ulcers, denies vomiting, denies jaundice/hepatitis, denies gallbladder problems, denies black or tarry stools, denies hemorrhoids, denies bleeding from rectum, denies diverticulitis, denies constipation, denies diarrhea, denies loss of stool control, and denies hernias. Kidney/Bladder: The patient denies kidney stones, denies urine infections, and denies bloody urine. Skin: The patient denies a history of skin cancer, denies bleeding/changing moles, and denies a history of skin rash. Neurologic: The patient denies a history of epilepsy/convulsions, denies headaches, denies head/spinal injuries, and denies stroke/TIA. Psychiatric: The patient denies psychiatric medications, denies depression, and denies voices, denies substance abuse. Endocrine: The patient denies thyroid disorders, denies diabetes, and denies hormonal problems. Hematologic: The patient denies a history of bruising, denies bleeding, and denies anemia, denies blood clots. Infections: The patient denies a history of measles and mumps, denies rheumatic fever, and denies sexually transmitted diseases. Musculoskeletal: The patient denies back pain/injury, denies back problems, denies sciatica, denies knee/foot trouble, denies arthritis, or denies gout. When was patient's last Mammogram screening? N/A Last Colonoscopy: none Nell Urbano LPN PHYSICAL EXAMINATION: General: The patient is 43 year old male, well nourished, well hydrated in no acute distress. The patient is oriented to time, place, and person. VITALS: Blood pressure 162/68, pulse 84. There is no height or weight on file to calculate BMI. HEENT: Normal cephalic, ataumatic, pupils are equally round, sclera are anicteric, mucous membranes are moist, oropharynx is clear. Neck has no masses, asymmetry or lymphadenopathy. Thyroid is unremarkable. Respiratory: Clear to auscultation and percussion. Normal respiratory excursion and pattern. Cardiac: Examination is regular rate and rhythm. Abdominal exam: Soft, nontender, with no palpable masses. No hepatosplenomegaly. A small, non reducible incisional hernia Rectal exam: exam deferred Extremities: no clubbing, cyanosis or edema. No adenopathy. Other: LABORATORY VALUES: As Noted RADIOLOGIC STUDIES: As Noted Assessment IMPRESSION: prior umbilical incisional hernia PLAN: My plan is to perform a laparoscopic incisional hernia repair with mesh. The planned surgical procedure was discussed extensively with the patient. The risks, benefits, anticipated outcomes and possible complications were mentioned. Edd aguileraands that all hernia repair surgery has a chance of recurrence and/or chronic post operative pain. My staff has also explained the procedure in understandable terms and the patient was given the option to take printed material concerning the planned procedure. The patient had the opportunity to ask questions concerning the planned procedure. The patient freely consents to the planned procedure. My findings have been communicated to Dr. Tomas Delgado MD via shared medical record. This note will be forwarded to Dr. Tomas Delgado MD. Diagnoses: (K43.2) Incisional hernia, without obstruction or gangrene (primary encounter diagnosis) Anticipated CPT Code: laparoscopic incisional hernia repair - incarcerated - 87309-374 Anticipated Anesthetic: General Patient weight: Blood pressure 162/68, pulse 84. BMI: There is no height or weight on file to calculate BMI. 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 Delmi Avitia MD CNOV Observed: 07/25/2018 Status: COMPLETED Source: [place] 9:30 AM [facility] REPOSITORY Office Visit (GENSWS) EDD DUPONT ([id number]) 1975 M Date Time Provider Department 07/25/18 9:30 AM ADORE, DELMI T GENSWS During your visit today, we recorded the following information about you: Pulse Blood pressure 84/minute 162/68 Nell Urbano MOUNA 07/25/2018 10:34 AM Signed REVIEW OF SYSTEMS: General: The patient NOTES fatigue, denies weight loss, denies weight gain, NOTES feeling hot, and denies feelings of cold. Eyes: The patient denies glaucoma, denies eye injury/surgery, wears glasses or contacts. Ear/Nose/Throat: The patient denies allergies, denies hayfever, denies ear infections, and NOTES bloody noses. Cardiovascular: The patient denies chest pain, denies heart disease, NOTES high blood pressure,denies cardiac stent, denies prior heart attack, denies irregular heart beat, NOTES high cholesterol, denies poor circulation, denies heart failure, other cardiac issues, denies claudication, denies cold feet, denies peripheral arterial stent. Respiratory: The patient denies tuberculosis, denies pneumonia, denies frequent cough, denies pulmonary embolism, denies shortness of breath, and denies coughing up blood. Gastrointestinal: The patient denies difficulty swallowing, denies acid reflux, denies ulcers, denies vomiting, denies jaundice/hepatitis, denies gallbladder problems, denies black or tarry stools, denies hemorrhoids, denies bleeding from rectum, denies diverticulitis, denies constipation, denies diarrhea, denies loss of stool control, and denies hernias. Kidney/Bladder: The patient denies kidney stones, denies urine infections, and denies bloody urine. Skin: The patient denies a history of skin cancer, denies bleeding/changing moles, and denies a history of skin rash. Neurologic: The patient denies a history of epilepsy/convulsions, denies headaches, denies head/spinal injuries, and denies stroke/TIA. Psychiatric: The patient denies psychiatric medications, denies depression, and denies voices, denies substance abuse. Endocrine: The patient denies thyroid disorders, denies diabetes, and denies hormonal problems. Hematologic: The patient denies a history of bruising, denies bleeding, and denies anemia, denies blood clots. Infections: The patient denies a history of measles and mumps, denies rheumatic fever, and denies sexually transmitted diseases. Musculoskeletal: The patient denies back pain/injury, denies back problems, denies sciatica, denies knee/foot trouble, denies arthritis, or denies gout. When was patient's last Mammogram screening? N/A Last Colonoscopy: none Nell Avitia MD 07/27/2018 11:49 AM Signed HISTORY AND PHYSICAL Edd Dupont 1975 REFERRING PHYSICIAN: Lashay Felton(Lizzie)* CHIEF COMPLAINT: Consult (Consult Ventral hernia) HPI: Edd is a 43 year old male with a complaint of a bulge and discomfort in his prior umbilical incision. The patient notes discomfort in this area with lifting, coughing and moving. The symptoms have increased, over the past few weeks. The patient notes no symptoms of bowel obstruction and denies nausea or vomiting. The patient was seen by his primary care physician who felt the patient has a hernia. Edd was referred for evaluation and treatment. The patient is being seen by me today at the request of Dr. Tomas Delgado MD for my opinion and advice regarding incisional/umbilical. PAST MEDICAL HISTORY Diagnosis Date - Bilateral leg edema 10/05/2015 - Bilateral leg edema 10/05/2015 - Essential hypertension, benign - Hyperlipidemia - Morbid obesity (HCC) 07/06/2014 - Obstructive sleep apnea syndrome 10/05/2015 DME: [facility], has not been able to tolerate CPAP. - Psoriasis 07/06/2014 - Uncontrolled type 2 diabetes mellitus without complication, without long-term current use of insulin (HCC) 02/24/2016 PAST SURGICAL HISTORY Procedure Laterality Date - LAP REPAIR INTIAL INGUINAL HERNIA Left 02/19/2017 large bard 3D Max - OPEN FIXATN PROX END/NECK FEMUR FX 1997 ORIF femur - REPAIR ING HERNIA,5+Y/O,REDUCIBL 01/25/11 Right Current Outpatient Prescriptions: gabapentin (NEURONTIN) 100 mg capsule Take 1 capsule by mouth three times daily for 180 days. atorvastatin (LIPITOR) 80 mg tablet Take 1 tablet by mouth once daily. ammonium lactate (LAC-HYDRIN) 12 % cream Apply 1 application to affected area as needed. triamcinolone acetonide (KENALOG) 0.5 % cream Apply 1 application to affected area twice daily. Apply sparingly to affected area. sertraline (ZOLOFT) 50 mg tablet Take 1.5 tablets by mouth once daily. metFORMIN ER (GLUCOPHAGE XR) 500 mg 24 hr tablet Take two tabs in AM and PM lisinopril (ZESTRIL, PRINIVIL) 20 mg tablet Take 1 tablet by mouth once daily. ezetimibe (ZETIA) 10 mg tablet Take 1 tablet by mouth once daily. lancets (FREESTYLE LANCETS) 28 gauge misc Test blood sugar(s) one times daily. Dx: Type 2 DM - Uncontrolled E11.65 Insulin: No Blood-Glucose Meter (BLOOD GLUCOSE MONITORING) monitoring kit 1 Each as needed. COMPOUNDED PRESCRIPTION Knee High Compression Stockings 20- 30 mm, DX: venous insufficiency, chronic blood sugar diagnostic (RELION PRIME TEST STRIPS) test strip Test glucose 1 x per day. Dx: E11.65. Insulin use: no No current facility-administered medications for this visit. 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 Sleep Concern Yes Stress Concern Yes Comment:work, going through divorce Weight Concern Yes Special Diet Yes Comment:diabetic Back Care No Exercise No Bike Helmet No Comment:na Seat Belt No FAMILY HISTORY: FAMILY HISTORY Problem Relation Age of Onset - Hypertension Mother - Lipids Mother - Diabetes Mother - Obesity Mother - Prostate Cancer Paternal Grandfather - COPD Father - other (leukemia) Maternal Grandmother - Emphysema Maternal Grandfather REVIEW OF SYMPTOMS: The review of systems data was entered by the nurse and reviewed by or Nursing Notes: Nell Urbano LPN 07/25/2018 10:34 AM Signed REVIEW OF SYSTEMS: General: The patient NOTES fatigue, denies weight loss, denies weight gain, NOTES feeling hot, and denies feelings of cold. Eyes: The patient denies glaucoma, denies eye injury/surgery, wears glasses or contacts. Ear/Nose/Throat: The patient denies allergies, denies hayfever, denies ear infections, and NOTES bloody noses. Cardiovascular: The patient denies chest pain, denies heart disease, NOTES high blood pressure,denies cardiac stent, denies prior heart attack, denies irregular heart beat, NOTES high cholesterol, denies poor circulation, denies heart failure, other cardiac issues, denies claudication, denies cold feet, denies peripheral arterial stent. Respiratory: The patient denies tuberculosis, denies pneumonia, denies frequent cough, denies pulmonary embolism, denies shortness of breath, and denies coughing up blood. Gastrointestinal: The patient denies difficulty swallowing, denies acid reflux, denies ulcers, denies vomiting, denies jaundice/hepatitis, denies gallbladder problems, denies black or tarry stools, denies hemorrhoids, denies bleeding from rectum, denies diverticulitis, denies constipation, denies diarrhea, denies loss of stool control, and denies hernias. Kidney/Bladder: The patient denies kidney stones, denies urine infections, and denies bloody urine. Skin: The patient denies a history of skin cancer, denies bleeding/changing moles, and denies a history of skin rash. Neurologic: The patient denies a history of epilepsy/convulsions, denies headaches, denies head/spinal injuries, and denies stroke/TIA. Psychiatric: The patient denies psychiatric medications, denies depression, and denies voices, denies substance abuse. Endocrine: The patient denies thyroid disorders, denies diabetes, and denies hormonal problems. Hematologic: The patient denies a history of bruising, denies bleeding, and denies anemia, denies blood clots. Infections: The patient denies a history of measles and mumps, denies rheumatic fever, and denies sexually transmitted diseases. Musculoskeletal: The patient denies back pain/injury, denies back problems, denies sciatica, denies knee/foot trouble, denies arthritis, or denies gout. When was patient's last Mammogram screening? N/A Last Colonoscopy: none Nell Urbano LPN PHYSICAL EXAMINATION: General: The patient is 43 year old male, well nourished, well hydrated in no acute distress. The patient is oriented to time, place, and person. VITALS: Blood pressure 162/68, pulse 84. There is no height or weight on file to calculate BMI. HEENT: Normal cephalic, ataumatic, pupils are equally round, sclera are anicteric, mucous membranes are moist, oropharynx is clear. Neck has no masses, asymmetry or lymphadenopathy. Thyroid is unremarkable. Respiratory: Clear to auscultation and percussion. Normal respiratory excursion and pattern. Cardiac: Examination is regular rate and rhythm. Abdominal exam: Soft, nontender, with no palpable masses. No hepatosplenomegaly. A small, non reducible incisional hernia Rectal exam: exam deferred Extremities: no clubbing, cyanosis or edema. No adenopathy. Other: LABORATORY VALUES: As Noted RADIOLOGIC STUDIES: As Noted Assessment IMPRESSION: prior umbilical incisional hernia PLAN: My plan is to perform a laparoscopic incisional hernia repair with mesh. The planned surgical procedure was discussed extensively with the patient. The risks, benefits, anticipated outcomes and possible complications were mentioned. Edd willyands that all hernia repair surgery has a chance of recurrence and/or chronic post operative pain. My staff has also explained the procedure in understandable terms and the patient was given the option to take printed material concerning the planned procedure. The patient had the opportunity to ask questions concerning the planned procedure. The patient freely consents to the planned procedure. My findings have been communicated to Dr. Tomas Delgado MD via shared medical record. This note will be forwarded to Dr. Tomas Delgado MD. Diagnoses: (K43.2) Incisional hernia, without obstruction or gangrene (primary encounter diagnosis) Anticipated CPT Code: laparoscopic incisional hernia repair - incarcerated - [id number] Anticipated Anesthetic: General Patient weight: Blood pressure 162/68, pulse 84. BMI: There is no height or weight on file to calculate BMI. 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 Delmi Avitia MD Referring Provider: KOKI FELTON) [[id number]] Allergies As of Date: 07/25/2018 Noted Allergy Reaction CODEINE 01/12/2011 14 - Other: See Comments Comments: headache Date Reviewed: 07/25/2018 Reviewed by: Kyree Holman LPN - Fully Assessed Reason for Visit: Consult [173] Cmt: Consult Ventral hernia Primary Visit Diagnosis:Incisional hernia, without obstruction or gangrene [K43.2] Prescriptions as of 07/25/2018 Sig: GABAPENTIN 100 MG CAPSULE Take 1 capsule by mouth three* ATORVASTATIN 80 MG TABLET Take 1 tablet by mouth once d* AMMONIUM LACTATE 12 % TOPICAL* Apply 1 application to affect* TRIAMCINOLONE ACETONIDE 0.5 %* Apply 1 application to affect* SERTRALINE 50 MG TABLET Take 1.5 tablets by mouth onc* METFORMIN ER 500 MG TABLET,EX* Take two tabs in AM and PM LISINOPRIL 20 MG TABLET Take 1 tablet by mouth once d* EZETIMIBE 10 MG TABLET Take 1 tablet by mouth once d* LANCETS 28 GAUGE Test blood sugar(s) one times* BLOOD-GLUCOSE METER KIT 1 Each as needed. COMPOUNDED PRESCRIPTION Knee High Compression Stockin* BLOOD SUGAR DIAGNOSTIC STRIPS Test glucose 1 x per day. Dx:* More... Problem List As Of Date 07/25/2018 Noted Resolved Psoriasis [L40.9] INVALID FOR* Priority: D Essential hypertension, benign [I10] INVALID FOR* Priority: A Mixed hyperlipidemia [E78.2] INVALID FOR* Priority: A Bilateral leg edema [R60.0] INVALID FOR*10/10/2016 Priority: B Well adult exam [Z00.00] INVALID FOR*10/10/2016 Priority: E More... Obstructive sleep apnea syndrome [G47.33] INVALID FOR*10/10/2016 Priority: B More... Morbid obesity due to excess calories (HCC) [E6*INVALID FOR* Priority: B Uncontrolled type 2 diabetes mellitus without c*INVALID FOR* Priority: A Urinary frequency [R35.0] INVALID FOR*10/10/2016 Priority: C Diabetic eye exam (HCC) [Z01.00, E11.9] INVALID FOR* Priority: A More... 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 Incisional hernia [K43.2] INVALID FOR* More... Visit Notes: >> Nell Urbano LPN Josette Jul 25, 2018 10:33 AM Status: Signed REVIEW OF SYSTEMS: General: The patient NOTES fatigue, denies weight loss, denies weight gain, NOTES feeling hot, and denies feelings of cold. Eyes: The patient denies glaucoma, denies eye injury/surgery, wears glasses or contacts. Ear/Nose/Throat: The patient denies allergies, denies hayfever, denies ear infections, and NOTES bloody noses. Cardiovascular: The patient denies chest pain, denies heart disease, NOTES high blood pressure,denies cardiac stent, denies prior heart attack, denies irregular heart beat, NOTES high cholesterol, denies poor circulation, denies heart failure, other cardiac issues, denies claudication, denies cold feet, denies peripheral arterial stent. Respiratory: The patient denies tuberculosis, denies pneumonia, denies frequent cough, denies pulmonary embolism, denies shortness of breath, and denies coughing up blood. Gastrointestinal: The patient denies difficulty swallowing, denies acid reflux, denies ulcers, denies vomiting, denies jaundice/hepatitis, denies gallbladder problems, denies black or tarry stools, denies hemorrhoids, denies bleeding from rectum, denies diverticulitis, denies constipation, denies diarrhea, denies loss of stool control, and denies hernias. Kidney/Bladder: The patient denies kidney stones, denies urine infections, and denies bloody urine. Skin: The patient denies a history of skin cancer, denies bleeding/changing moles, and denies a history of skin rash. Neurologic: The patient denies a history of epilepsy/convulsions, denies headaches, denies head/spinal injuries, and denies stroke/TIA. Psychiatric: The patient denies psychiatric medications, denies depression, and denies voices, denies substance abuse. Endocrine: The patient denies thyroid disorders, denies diabetes, and denies hormonal problems. Hematologic: The patient denies a history of bruising, denies bleeding, and denies anemia, denies blood clots. Infections: The patient denies a history of measles and mumps, denies rheumatic fever, and denies sexually transmitted diseases. Musculoskeletal: The patient denies back pain/injury, denies back problems, denies sciatica, denies knee/foot trouble, denies arthritis, or denies gout. When was patient's last Mammogram screening? N/A Last Colonoscopy: none Nell Urbano LPN Follow-up and Disposition History Recorded Encounter Status:Closed by DELMI AVITIA MD on 07/27/18 PROGRESS Observed: 07/24/2018 Status: COMPLETED Source: [place] 9:32 AM [facility] REPOSITORY HNO ID: [id number] Author: Master Trimble Service: (none) Author Type: Physician Type: Progress Notes Filed: 07/24/2018 11:35 AM Note Text: Subjective: Patient presents to clinic c/o painful toenails. They state that the nails are especially painful with shoe gear and pressure. Patient states that nails 1-5 b/l are painful. Patient admits to being diabetic but does not check his sugars. He does use afo on right lower extremity and that does help. He feels that his left foot is starting to collar turner. He does have on/off pain to lateral right foot that is 2/10. He states that the ankle will swell. He denies any injury. He is not taking any medication for the pain. No other pedal complaints at this time. Patient states no change in medications or medical history since last visit. PAST MEDICAL HISTORY Diagnosis Date - Bilateral leg edema 10/05/2015 - Bilateral leg edema 10/05/2015 - Essential hypertension, benign - Hyperlipidemia - Morbid obesity (HCC) 07/06/2014 - Obstructive sleep apnea syndrome 10/05/2015 DME: [facility], has not been able to tolerate CPAP. - Psoriasis 07/06/2014 - Uncontrolled type 2 diabetes mellitus without complication, without long-term current use of insulin (HCC) 02/24/2016 Current Outpatient Prescriptions on File Prior to Visit: gabapentin (NEURONTIN) 100 mg capsule Take 1 capsule by mouth three times daily for 180 days. atorvastatin (LIPITOR) 80 mg tablet Take 1 tablet by mouth once daily. ammonium lactate (LAC-HYDRIN) 12 % cream Apply 1 application to affected area as needed. triamcinolone acetonide (KENALOG) 0.5 % cream Apply 1 application to affected area twice daily. Apply sparingly to affected area. sertraline (ZOLOFT) 50 mg tablet Take 1.5 tablets by mouth once daily. metFORMIN ER (GLUCOPHAGE XR) 500 mg 24 hr tablet Take two tabs in AM and PM lisinopril (ZESTRIL, PRINIVIL) 20 mg tablet Take 1 tablet by mouth once daily. ezetimibe (ZETIA) 10 mg tablet Take 1 tablet by mouth once daily. blood sugar diagnostic (RELION PRIME TEST STRIPS) test strip Test glucose 1 x per day. Dx: E11.65. Insulin use: no lancets (FREESTYLE LANCETS) 28 gauge misc Test blood sugar(s) one times daily. Dx: Type 2 DM - Uncontrolled E11.65 Insulin: No Blood-Glucose Meter (BLOOD GLUCOSE MONITORING) monitoring kit 1 Each as needed. COMPOUNDED PRESCRIPTION Knee High Compression Stockings 20- 30 mm, DX: venous insufficiency, chronic No current facility-administered medications on file prior to visit. REVIEW OF SYSTEMS: CONSTITUTIONAL: No fevers, chills, nightsweats, unintended weight loss HEENT: Denies frequent or severe heaches, nasal congestion/sinus symptoms, problematic allergy problems. EYES: No diplopia or blurry vision. CARDIOVASCULAR: No chest pain, dyspnea, palpitations, orthopnea, PND, ankle edema. PULM: No dyspnea, unexplained cough. GI: No dysphagia/odynophagia, problematic reflux, constipation, diarrhea, changes in stool habits, hematochezia, melena. : No new urinary complaints, including dysuria, gross hematuria or pyuria. NEURO: No new balance problems, peripheral weakness/paresthesias or numbness of concern. MUSC-SKEL: Ankle pain PSY: No concerns regarding depression, anxiety or panic. INTEGUMENTARY: Callus of left foot Objective: Patient presents to clinic ambulating in [facility] Vasc: DP and PT pulses are palpable bilateral. CFT is less than 5 seconds bilateral. Skin temperature is warm to cool proximal to distal bilateral. There is mild edema or varicosities noted. Neuro: Protective sensation is intact to the foot and toes when tested with the 5.07 SWM bilateral. Vibratory sensation is decreased at the hallux IPJ bilateral. The hallux is downgoing bilateral. Derm: Nails 1-5 b/l are painful, discolored-yellow, thick, crumbly, dystrophic and with subungal debris. Skin is of normal turgor, texture and hair growth is present bilateral. There is callus of left 3rd metatarsal. No ulcerations, scars, verruca or other lesions noted. Ortho: Muscle strength is 5/5 for all pedal groups tested. Ankle joint DF is full with the knee extended with no pain or crepitus noted. 1st MPJ ROM is full bilateral. There is high arch b/l. There is mild swelling with pain to lateral right ankle. Assessment: (B35.1) Onychomycosis (primary encounter diagnosis) (M79.675) Pain in toe of left foot (M79.674) Pain in toe of right foot (E11.42) Diabetic polyneuropathy associated with type 2 diabetes mellitus (HCC) (Q66.7) Pes cavus of right foot (Q66.7) Pes cavus of left foot (L85.9) Hyperkeratosis Plan: Patient was seen and evaluated. Nails 1-5 bilateral were debrided in length and thickness. Callus to left foot debrided with sanding disk Discussed high arches. Patient has bracing on right foot and this has helped. Will order bracing of left foot Discussed swelling of ankle. Will order xrays of foot and ankle. Patient was instructed on the continued importance of diabetic foot care along with proper diet and keeping their blood sugar under control to prevent complications. Patient is to RTC in 3-4 months. Master Trimble DPM PROGRESS Observed: 07/24/2018 Status: COMPLETED Source: [place] 9:12 AM [facility] REPOSITORY HNO ID: [id number] Author: Nyasia Rich MA Service: (none) Author Type: (none) Type: Progress Notes Filed: 07/24/2018 11:35 AM Note Text: AMB ROOMING INTAKE FLOWSHEET DATA Pain Pain Score: 3/10 Pain Location: (R foot pain) Description: Aching, Sore Duration Amount of Time: 1 Duration Units: Days Frequency: Continuous Intervention: Cold Patient is here for R ankle pain and diabetic nail care. Pain is 3/10. Patient states he is not wearing AFO brace today only for work. Patient states that he will ice R ankle pain after work which helps with pain. Patient denies taking NSAIDS. Patient states no swelling in R ankle. Patient did not check blood sugar this morning. Nyasia Rich MA CNOV Observed: 07/24/2018 Status: COMPLETED Source: [place] 9:10 AM [facility] REPOSITORY Office Visit (PODIWS) JESSYROOPAPAWANEDD ([id number]) 1975 M Date Time Provider Department 07/24/18 9:10 AM MASTER TRIMBLE During your visit today, we recorded the following information about you: Nyasia Rich MA 07/24/2018 11:35 AM Signed AMB ROOMING INTAKE FLOWSHEET DATA Pain Pain Score: 3/10 Pain Location: (R foot pain) Description: Aching, Sore Duration Amount of Time: 1 Duration Units: Days Frequency: Continuous Intervention: Cold Patient is here for R ankle pain and diabetic nail care. Pain is 3/10. Patient states he is not wearing AFO brace today only for work. Patient states that he will ice R ankle pain after work which helps with pain. Patient denies taking NSAIDS. Patient states no swelling in R ankle. Patient did not check blood sugar this morning. Nyasia Rich MA Master Trimble DPM 07/24/2018 11:35 AM Signed Subjective: Patient presents to clinic c/o painful toenails. They state that the nails are especially painful with shoe gear and pressure. Patient states that nails 1-5 b/l are painful. Patient admits to being diabetic but does not check his sugars. He does use afo on right lower extremity and that does help. He feels that his left foot is starting to collar turner. He does have on/off pain to lateral right foot that is 2/10. He states that the ankle will swell. He denies any injury. He is not taking any medication for the pain. No other pedal complaints at this time. Patient states no change in medications or medical history since last visit. PAST MEDICAL HISTORY Diagnosis Date - Bilateral leg edema 10/05/2015 - Bilateral leg edema 10/05/2015 - Essential hypertension, benign - Hyperlipidemia - Morbid obesity (HCC) 07/06/2014 - Obstructive sleep apnea syndrome 10/05/2015 DME: [facility], has not been able to tolerate CPAP. - Psoriasis 07/06/2014 - Uncontrolled type 2 diabetes mellitus without complication, without long-term current use of insulin (HCC) 02/24/2016 Current Outpatient Prescriptions on File Prior to Visit: gabapentin (NEURONTIN) 100 mg capsule Take 1 capsule by mouth three times daily for 180 days. atorvastatin (LIPITOR) 80 mg tablet Take 1 tablet by mouth once daily. ammonium lactate (LAC-HYDRIN) 12 % cream Apply 1 application to affected area as needed. triamcinolone acetonide (KENALOG) 0.5 % cream Apply 1 application to affected area twice daily. Apply sparingly to affected area. sertraline (ZOLOFT) 50 mg tablet Take 1.5 tablets by mouth once daily. metFORMIN ER (GLUCOPHAGE XR) 500 mg 24 hr tablet Take two tabs in AM and PM lisinopril (ZESTRIL, PRINIVIL) 20 mg tablet Take 1 tablet by mouth once daily. ezetimibe (ZETIA) 10 mg tablet Take 1 tablet by mouth once daily. blood sugar diagnostic (RELION PRIME TEST STRIPS) test strip Test glucose 1 x per day. Dx: E11.65. Insulin use: no lancets (FREESTYLE LANCETS) 28 gauge misc Test blood sugar(s) one times daily. Dx: Type 2 DM - Uncontrolled E11.65 Insulin: No Blood-Glucose Meter (BLOOD GLUCOSE MONITORING) monitoring kit 1 Each as needed. COMPOUNDED PRESCRIPTION Knee High Compression Stockings 20- 30 mm, DX: venous insufficiency, chronic No current facility-administered medications on file prior to visit. REVIEW OF SYSTEMS: CONSTITUTIONAL: No fevers, chills, nightsweats, unintended weight loss HEENT: Denies frequent or severe heaches, nasal congestion/sinus symptoms, problematic allergy problems. EYES: No diplopia or blurry vision. CARDIOVASCULAR: No chest pain, dyspnea, palpitations, orthopnea, PND, ankle edema. PULM: No dyspnea, unexplained cough. GI: No dysphagia/odynophagia, problematic reflux, constipation, diarrhea, changes in stool habits, hematochezia, melena. : No new urinary complaints, including dysuria, gross hematuria or pyuria. NEURO: No new balance problems, peripheral weakness/paresthesias or numbness of concern. MUSC-SKEL: Ankle pain PSY: No concerns regarding depression, anxiety or panic. INTEGUMENTARY: Callus of left foot Objective: Patient presents to clinic ambulating in [facility] Vasc: DP and PT pulses are palpable bilateral. CFT is less than 5 seconds bilateral. Skin temperature is warm to cool proximal to distal bilateral. There is mild edema or varicosities noted. Neuro: Protective sensation is intact to the foot and toes when tested with the 5.07 SWM bilateral. Vibratory sensation is decreased at the hallux IPJ bilateral. The hallux is downgoing bilateral. Derm: Nails 1-5 b/l are painful, discolored-yellow, thick, crumbly, dystrophic and with subungal debris. Skin is of normal turgor, texture and hair growth is present bilateral. There is callus of left 3rd metatarsal. No ulcerations, scars, verruca or other lesions noted. Ortho: Muscle strength is 5/5 for all pedal groups tested. Ankle joint DF is full with the knee extended with no pain or crepitus noted. 1st MPJ ROM is full bilateral. There is high arch b/l. There is mild swelling with pain to lateral right ankle. Assessment: (B35.1) Onychomycosis (primary encounter diagnosis) (M79.675) Pain in toe of left foot (M79.674) Pain in toe of right foot (E11.42) Diabetic polyneuropathy associated with type 2 diabetes mellitus (HCC) (Q66.7) Pes cavus of right foot (Q66.7) Pes cavus of left foot (L85.9) Hyperkeratosis Plan: Patient was seen and evaluated. Nails 1-5 bilateral were debrided in length and thickness. Callus to left foot debrided with sanding disk Discussed high arches. Patient has bracing on right foot and this has helped. Will order bracing of left foot Discussed swelling of ankle. Will order xrays of foot and ankle. Patient was instructed on the continued importance of diabetic foot care along with proper diet and keeping their blood sugar under control to prevent complications. Patient is to RTC in 3-4 months. MIKE Daily MA 07/24/2018 9:46 AM Signed [email or web address] Please call to schedule appointment [place] [address] [facility] [address] PH: [phone] [place] [address] [facility] [address], [facility] [address] PH: [phone] [place] [address] [facility] [address] PH: [phone] [place] [address] [facility] [address] PH: [phone] or [phone] [place] [address] [facility] [address] PH: [phone] [place] [address] [facility] [address] PH: [phone] Referring Provider: SELF [200] Allergies As of Date: 07/24/2018 Noted Allergy Reaction CODEINE 01/12/2011 14 - Other: See Comments Comments: headache Date Reviewed: 07/24/2018 Reviewed by: Nyasia Rich MA - Fully Assessed Reason for Visit: Follow Up [171] Primary Visit Diagnosis:Onychomycosis [B35.1] Other Visit Diagnoses:Pain in toe of left foot [M79.675] Pain in toe of right foot [M79.674] Diabetic polyneuropathy associated with type 2 diabetes mellitus (HCC) [E11.42] Pes cavus of right foot [Q66.7] Pes cavus of left foot [Q66.7] Hyperkeratosis [L85.9] Order(s):XR FOOT GENERAL 3V AP/LAT/OBL BILAT [[id number]] Order #: [id number] FUTURE XR ANKLE GENERAL 3V AP/LAT/OBL BILAT [[id number]] Order #: [id number] FUTURE CONSULT TO ORTHOTIC/PROSTHETIC [[id number]] Order #: [id number]: 1 Prescriptions as of 07/24/2018 Sig: GABAPENTIN 100 MG CAPSULE Take 1 capsule by mouth three* ATORVASTATIN 80 MG TABLET Take 1 tablet by mouth once d* AMMONIUM LACTATE 12 % TOPICAL* Apply 1 application to affect* TRIAMCINOLONE ACETONIDE 0.5 %* Apply 1 application to affect* SERTRALINE 50 MG TABLET Take 1.5 tablets by mouth onc* METFORMIN ER 500 MG TABLET,EX* Take two tabs in AM and PM LISINOPRIL 20 MG TABLET Take 1 tablet by mouth once d* EZETIMIBE 10 MG TABLET Take 1 tablet by mouth once d* BLOOD SUGAR DIAGNOSTIC STRIPS Test glucose 1 x per day. Dx:* LANCETS 28 GAUGE Test blood sugar(s) one times* BLOOD-GLUCOSE METER KIT 1 Each as needed. COMPOUNDED PRESCRIPTION Knee High Compression Stockin* More... Problem List As Of Date 07/24/2018 Noted Resolved Psoriasis [L40.9] INVALID FOR* Priority: D Essential hypertension, benign [I10] INVALID FOR* Priority: A Mixed hyperlipidemia [E78.2] INVALID FOR* Priority: A Bilateral leg edema [R60.0] INVALID FOR*10/10/2016 Priority: B Well adult exam [Z00.00] INVALID FOR*10/10/2016 Priority: E More... Obstructive sleep apnea syndrome [G47.33] INVALID FOR*10/10/2016 Priority: B More... Morbid obesity due to excess calories (HCC) [E6*INVALID FOR* Priority: B Uncontrolled type 2 diabetes mellitus without c*INVALID FOR* Priority: A Urinary frequency [R35.0] INVALID FOR*10/10/2016 Priority: C Diabetic eye exam (HCC) [Z01.00, E11.9] INVALID FOR* Priority: A More... 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 Other instructions from your clinician: Janice Lange Please call to schedule appointment [place] [address] [facility] [address] PH: [phone] [place] [address] [facility] [address] [address] PH: [phone] [place] [address] [facility] [address] PH: [phone] [place] [address] [facility] [address] PH: [phone] or [phone] [place] [address] [facility] [address] PH: [phone] [place] [address] [facility] [address] PH: [phone] Disposition: Return in about 3 months (around 10/24/2018) for nail care. Follow-up and Disposition History Recorded Encounter Status:Closed by MASTER TRIMBLE DPM on 07/24/18 CNOV Observed: 07/15/2018 Status: COMPLETED Source: [place] 10:20 AM [facility] REPOS[facility] EDD DUP[facility] ([id number]) 1975 M Date Time Provider Department 07/15/18 10:20 AM KOKI FELTON) MIRYAM During your visit today, we recorded the following information about you: Pulse Respiration Blood pressure Weight 80/minute 12/minute 160/74 147 kg LASHAY FELTON PA-C 07/15/2018 12:14 PM Signed Chief Complaint Patient presents with: Leg Edema: patient is here for right leg swelling Mass: Patient is here for possible her hernia; has history HPI Edd Longoria Kiah is a 43 year old male who presents here today for Above Complaints.. Patient reports R leg swelling a couple day. No left leg swelling. Has had some soreness associated with this. No redness. Swelling does not improve overnight. BP elevated today- no associated symptoms. Denies headache, or vision changes No chest pain, shortness of breath,or orthopnea. Does have hx of tibia fx of this leg. About 15-20 years ago. Also c/o of abdominal hernia for a couple weeks. Close to where scar from previous inguinal hernia surgery was. Reports some discomfort at times. Has been bulging more recently. Past medical history, appointments, medications, allergies reviewed. Previous Medical History PAST MEDICAL HISTORY Diagnosis Date - Bilateral leg edema 10/05/2015 - Bilateral leg edema 10/05/2015 - Essential hypertension, benign - Hyperlipidemia - Morbid obesity (HCC) 07/06/2014 - Obstructive sleep apnea syndrome 10/05/2015 DME: [facility], has not been able to tolerate CPAP. - Psoriasis 07/06/2014 - Uncontrolled type 2 diabetes mellitus without complication, without long-term current use of insulin (HCC) 02/24/2016 Previous Surgical History PAST SURGICAL HISTORY Procedure Laterality Date - LAP REPAIR INTIAL INGUINAL HERNIA Left 02/19/2017 large bard 3D Max - OPEN FIXATN PROX END/NECK FEMUR FX ORIF femur - REPAIR ING HERNIA,5+Y/O,REDUCIBL 01/25/11 Right Family History FAMILY HISTORY Problem Relation Age of Onset - Hypertension Mother - Lipids Mother - Diabetes Mother - Obesity Mother - Prostate Cancer Paternal Grandfather - COPD Father - other (leukemia) Maternal Grandmother - Emphysema Maternal Grandfather Patient Allergies ALLERGIES Allergen Reactions - Codeine Other: See Comments headache Current Medications Current Outpatient Prescriptions on File Prior to Visit: gabapentin (NEURONTIN) 100 mg capsule Take 1 capsule by mouth three times daily for 180 days. atorvastatin (LIPITOR) 80 mg tablet Take 1 tablet by mouth once daily. ammonium lactate (LAC-HYDRIN) 12 % cream Apply 1 application to affected area as needed. triamcinolone acetonide (KENALOG) 0.5 % cream Apply 1 application to affected area twice daily. Apply sparingly to affected area. sertraline (ZOLOFT) 50 mg tablet Take 1.5 tablets by mouth once daily. metFORMIN ER (GLUCOPHAGE XR) 500 mg 24 hr tablet Take two tabs in AM and PM lisinopril (ZESTRIL, PRINIVIL) 20 mg tablet Take 1 tablet by mouth once daily. ezetimibe (ZETIA) 10 mg tablet Take 1 tablet by mouth once daily. lancets (FREESTYLE LANCETS) 28 gauge misc Test blood sugar(s) one times daily. Dx: Type 2 DM - Uncontrolled E11.65 Insulin: No Blood-Glucose Meter (BLOOD GLUCOSE MONITORING) monitoring kit 1 Each as needed. COMPOUNDED PRESCRIPTION Knee High Compression Stockings 20- 30 mm, DX: venous insufficiency, chronic blood sugar diagnostic (RELION PRIME TEST STRIPS) test strip Test glucose 1 x per day. Dx: E11.65. Insulin use: no No current facility-administered medications on file prior to visit. 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 Sleep Concern Yes Stress Concern Yes Comment:work, going through divorce Weight Concern Yes Special Diet Yes Comment:diabetic Back Care No Exercise No Bike Helmet No Comment:na Seat Belt No Review of Symptoms REVIEW OF SYSTEMS GENERAL: No weight loss, malaise or fevers NECK: Negative for lumps, goiter, pain and significant neck swelling RESPIRATORY: Negative for cough, hemoptysis, wheezing, COPD, dyspnea or shortness of breath CARDIOVASCULAR: + leg swelling and HTN,Negative for chest pain,CHF or palpitations ENDOCRINE: Negative for cold or heat intolerance, polyuria, polydipsia and goiter EXAM: BP 160/74 (BP Site: Left Arm, BP Position: Sitting, BP Cuff Size: Large Adult) Pulse 80 Resp 12 Wt (!) 147 kg (324 lb) BMI 45.19 kg/m? Last 4 Encounter BP Readings: Date: BP: 07/15/2018 160/74 06/18/2018 138/68 01/07/2018 137/74 09/04/2017 134/68 General Appearance: Well appearing, alert, in no acute distress, well-hydrated, well nourished. and Morbidly obese. Neck: Supple, no adenopathy; thyroid symmetric, normal size, no bruits. Lungs: Lungs clear to auscultation. No wheezing, rhonchi, rales. Heart: RRR without murmur, gallop, or rubs. No ectopy. Abdomen: Abdomen soft, non-tender. Bowel sounds normal. Area of concern for hernia noted with patient standing. Just below umbilicus. nontender to palp. Extremities: R leg with localized swelling medially. Near area of previous injury. No erythema. Neg homans. +varicosities noted. Nonpitting. . Peripheral Pulses: Normal. Neurologic: Gait normal. Reflexes normal and symmetric. Sensation intact.. Health Maintenance List BP CONTROLLED (<130/80) due on 02/22/1994 DILATED RETINAL EXAM due on 12/02/2017 STATIN MED ADHERENCE due on 07/18/2018 DIABETES MED ADHERENCE due on 07/18/2018 HBA1C due on 09/09/2018 DIABETIC FOOT EXAM due on 12/11/2018 URINE ALBUMIN:CREATININE RATIO due on 12/22/2018 LDL CHOLESTEROL due on 06/10/2019 ANNUAL PCP TEAM CHRONIC DISEASE VISIT due on 06/18/2019 DTAP,TDAP,TD(2 - Td) due on 10/05/2025 ONE PNEUMOVAX PRIOR TO AGE 65 Completed Data reviewed Component Latest Ref Rng AND Units 06/10/2018 Protein, Total 6.3 - 8.0 g/dL 7.6 Albumin 3.9 - 4.9 g/dL 3.6 (L) Calcium 8.5 - 10.2 mg/dL 8.6 Bilirubin, Total 0.2 - 1.3 mg/dL 0.6 Alkaline Phosphatase 36 - 108 U/L 96 AST 14 - 40 U/L 54 (H) Glucose 74 - 99 mg/dL 147 (H) BUN 9 - 24 mg/dL 11 Creatinine 0.73 - 1.22 mg/dL 0.55 (L) Sodium 136 - 144 mmol/L 136 Potassium 3.7 - 5.1 mmol/L 4.1 Chloride 97 - 105 mmol/L 99 CO2 22 - 30 mmol/L 25 Anion Gap 9 - 18 mmol/L 12 ALT 10 - 54 U/L 58 (H) eGFR- >60 eGFR-All Other Races . >60 ASSESSMENT/PLAN: 1. Right leg swelling - ICD9: 729.81, ICD10: M79.89 (primary diagnosis) ? Etiology. Will check US to rule out DVT vs thrombophlebitis. No concern for cellulitis. Discussed decreasing salt. Apply heat and keep leg elevated - US LEG VEIN DVT UNL VAS LAB 2. Essential hypertension, benign - ICD9: 401.1, ICD10: I10 - poor control - Continue current medication(s) - Recommended regular aerobic exercise. - Recommend home blood pressure monitoring, to bring results in on next visit - Recheck in 2 weeks, sooner should new symptoms or problems arise. - Goal of BP <130/80 3. Ventral hernia without obstruction or gangrene - ICD9: 553.20, ICD10: K43.9 Will consult surgeon - CONSULT TO GENERAL SURGERY Recheck in 2 weeks Discussed possible red flags and when to seek medical attention. Patient is in agreement with plan as stated above. Agrees to ER if develop shortness of breath or chest pain. LASHAY FELTON PA-C Referring Provider: SELF [200] Allergies As of Date: 07/15/2018 Noted Allergy Reaction CODEINE 01/12/2011 14 - Other: See Comments Comments: headache Date Reviewed: 07/15/2018 Reviewed by: Koki) Jose Francisco - Fully Assessed Reason for Visit: Leg Edema [769] Cmt: patient is here for right leg swelling Mass [64] Cmt: Patient is here for possible her hernia; has history Primary Visit Diagnosis:Right leg swelling [M79.89] Other Visit Diagnoses:Essential hypertension, benign [I10] Ventral hernia without obstruction or gangrene [K43.9] Order(s):US LEG VEIN DVT UNL VAS LAB [[id number]] Order #: [id number] FUTURE CONSULT TO GENERAL SURGERY [[id number]] Order #: [id number]: 1 Prescriptions as of 07/15/2018 Sig: GABAPENTIN 100 MG CAPSULE Take 1 capsule by mouth three* ATORVASTATIN 80 MG TABLET Take 1 tablet by mouth once d* AMMONIUM LACTATE 12 % TOPICAL* Apply 1 application to affect* TRIAMCINOLONE ACETONIDE 0.5 %* Apply 1 application to affect* SERTRALINE 50 MG TABLET Take 1.5 tablets by mouth onc* METFORMIN ER 500 MG TABLET,EX* Take two tabs in AM and PM LISINOPRIL 20 MG TABLET Take 1 tablet by mouth once d* EZETIMIBE 10 MG TABLET Take 1 tablet by mouth once d* LANCETS 28 GAUGE Test blood sugar(s) one times* BLOOD-GLUCOSE METER KIT 1 Each as needed. COMPOUNDED PRESCRIPTION Knee High Compression Stockin* BLOOD SUGAR DIAGNOSTIC STRIPS Test glucose 1 x per day. Dx:* More... Problem List As Of Date 07/15/2018 Noted Resolved Psoriasis [L40.9] INVALID FOR* Priority: D Essential hypertension, benign [I10] INVALID FOR* Priority: A Mixed hyperlipidemia [E78.2] INVALID FOR* Priority: A Bilateral leg edema [R60.0] INVALID FOR*10/10/2016 Priority: B Well adult exam [Z00.00] INVALID FOR*10/10/2016 Priority: E More... Obstructive sleep apnea syndrome [G47.33] INVALID FOR*10/10/2016 Priority: B More... Morbid obesity due to excess calories (HCC) [E6*INVALID FOR* Priority: B Uncontrolled type 2 diabetes mellitus without c*INVALID FOR* Priority: A Urinary frequency [R35.0] INVALID FOR*10/10/2016 Priority: C Diabetic eye exam (HCC) [Z01.00, E11.9] INVALID FOR* Priority: A More... 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 Disposition: Return in about 2 weeks (around 07/29/2018) for recheck. Follow-up and Disposition History Recorded Letter Text [facility] [address] [place], [place] [id number] TO WHOM IT MAY CONCERN: This is to confirm that Edd Dupont had an appointment and was seen at the [facility] in the Department of Family Medicine Lashay Felton PA-C on 07/15/2018. Please excuse him from being late to work. Sincerely yours, Lashay Felton PA-C Encounter Status:Closed by LASHAY TINEO on 07/15/18 PROGRESS Observed: 07/15/2018 Status: COMPLETED Source: [place] 10:10 AM [facility] REPOSITORY HNO ID: [id number] Author: Diana Felton Service: (none) Author Type: Physician Wine Manager Type: Progress Notes Filed: 07/15/2018 12:14 PM Note Text: Chief Complaint Patient presents with: Leg Edema: patient is here for right leg swelling Mass: Patient is here for possible her hernia; has history HPI Edd Dupont is a 43 year old male who presents here today for Above Complaints.. Patient reports R leg swelling a couple day. No left leg swelling. Has had some soreness associated with this. No redness. Swelling does not improve overnight. BP elevated today- no associated symptoms. Denies headache, or vision changes No chest pain, shortness of breath,or orthopnea. Does have hx of tibia fx of this leg. About 15-20 years ago. Also c/o of abdominal hernia for a couple weeks. Close to where scar from previous inguinal hernia surgery was. Reports some discomfort at times. Has been bulging more recently. Past medical history, appointments, medications, allergies reviewed. Previous Medical History PAST MEDICAL HISTORY Diagnosis Date - Bilateral leg edema 10/05/2015 - Bilateral leg edema 10/05/2015 - Essential hypertension, benign - Hyperlipidemia - Morbid obesity (HCC) 07/06/2014 - Obstructive sleep apnea syndrome 10/05/2015 DME: [facility], has not been able to tolerate CPAP. - Psoriasis 07/06/2014 - Uncontrolled type 2 diabetes mellitus without complication, without long-term current use of insulin (HCC) 02/24/2016 Previous Surgical History PAST SURGICAL HISTORY Procedure Laterality Date - LAP REPAIR INTIAL INGUINAL HERNIA Left 02/19/2017 large bard 3D Max - OPEN FIXATN PROX END/NECK FEMUR FX ORIF femur - REPAIR ING HERNIA,5+Y/O,REDUCIBL 01/25/11 Right Family History FAMILY HISTORY Problem Relation Age of Onset - Hypertension Mother - Lipids Mother - Diabetes Mother - Obesity Mother - Prostate Cancer Paternal Grandfather - COPD Father - other (leukemia) Maternal Grandmother - Emphysema Maternal Grandfather Patient Allergies ALLERGIES Allergen Reactions - Codeine Other: See Comments headache Current Medications Current Outpatient Prescriptions on File Prior to Visit: gabapentin (NEURONTIN) 100 mg capsule Take 1 capsule by mouth three times daily for 180 days. atorvastatin (LIPITOR) 80 mg tablet Take 1 tablet by mouth once daily. ammonium lactate (LAC-HYDRIN) 12 % cream Apply 1 application to affected area as needed. triamcinolone acetonide (KENALOG) 0.5 % cream Apply 1 application to affected area twice daily. Apply sparingly to affected area. sertraline (ZOLOFT) 50 mg tablet Take 1.5 tablets by mouth once daily. metFORMIN ER (GLUCOPHAGE XR) 500 mg 24 hr tablet Take two tabs in AM and PM lisinopril (ZESTRIL, PRINIVIL) 20 mg tablet Take 1 tablet by mouth once daily. ezetimibe (ZETIA) 10 mg tablet Take 1 tablet by mouth once daily. lancets (FREESTYLE LANCETS) [facility] Test blood sugar(s) one times daily. Dx: Type 2 DM - Uncontrolled E11.65 Insulin: No Blood-Glucose Meter (BLOOD GLUCOSE MONITORING) monitoring kit 1 Each as needed. COMPOUNDED PRESCRIPTION Knee High Compression Stockings 20- 30 mm, DX: venous insufficiency, chronic blood sugar diagnostic (RELION PRIME TEST STRIPS) test strip Test glucose 1 x per day. Dx: E11.65. Insulin use: no No current facility-administered medications on file prior to visit. 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 Sleep Concern Yes Stress Concern Yes Comment:work, going through divorce Weight Concern Yes Special Diet Yes Comment:diabetic Back Care No Exercise No Bike Helmet No Comment:na Seat Belt No Review of Symptoms REVIEW OF SYSTEMS GENERAL: No weight loss, malaise or fevers NECK: Negative for lumps, goiter, pain and significant neck swelling RESPIRATORY: Negative for cough, hemoptysis, wheezing, COPD, dyspnea or shortness of breath CARDIOVASCULAR: + leg swelling and HTN,Negative for chest pain,CHF or palpitations ENDOCRINE: Negative for cold or heat intolerance, polyuria, polydipsia and goiter EXAM: BP 160/74 (BP Site: Left Arm, BP Position: Sitting, BP Cuff Size: Large Adult) Pulse 80 Resp 12 Wt (!) 147 kg (324 lb) BMI 45.19 kg/m? Last 4 Encounter BP Readings: Date: BP: 07/15/2018 160/74 06/18/2018 138/68 01/07/2018 137/74 09/04/2017 134/68 General Appearance: Well appearing, alert, in no acute distress, well-hydrated, well nourished. and Morbidly obese. Neck: Supple, no adenopathy; thyroid symmetric, normal size, no bruits. Lungs: Lungs clear to auscultation. No wheezing, rhonchi, rales. Heart: RRR without murmur, gallop, or rubs. No ectopy. Abdomen: Abdomen soft, non-tender. Bowel sounds normal. Area of concern for hernia noted with patient standing. Just below umbilicus. nontender to palp. Extremities: R leg with localized swelling medially. Near area of previous injury. No erythema. Neg homans. +varicosities noted. Nonpitting. . Peripheral Pulses: Normal. Neurologic: Gait normal. Reflexes normal and symmetric. Sensation intact.. Health Maintenance List BP CONTROLLED (<130/80) due on 02/22/1994 DILATED RETINAL EXAM due on 12/02/2017 STATIN MED ADHERENCE due on 07/18/2018 DIABETES MED ADHERENCE due on 07/18/2018 HBA1C due on 09/09/2018 DIABETIC FOOT EXAM due on 12/11/2018 URINE ALBUMIN:CREATININE RATIO due on 12/22/2018 LDL CHOLESTEROL due on 06/10/2019 ANNUAL PCP TEAM CHRONIC DISEASE VISIT due on 06/18/2019 DTAP,TDAP,TD(2 - Td) due on 10/05/2025 ONE PNEUMOVAX PRIOR TO AGE 65 Completed Data reviewed Component Latest Ref Rng AND Units 06/10/2018 Protein, Total 6.3 - 8.0 g/dL 7.6 Albumin 3.9 - 4.9 g/dL 3.6 (L) Calcium 8.5 - 10.2 mg/dL 8.6 Bilirubin, Total 0.2 - 1.3 mg/dL 0.6 Alkaline Phosphatase 36 - 108 U/L 96 AST 14 - 40 U/L 54 (H) Glucose 74 - 99 mg/dL 147 (H) BUN 9 - 24 mg/dL 11 Creatinine 0.73 - 1.22 mg/dL 0.55 (L) Sodium 136 - 144 mmol/L 136 Potassium 3.7 - 5.1 mmol/L 4.1 Chloride 97 - 105 mmol/L 99 CO2 22 - 30 mmol/L 25 Anion Gap 9 - 18 mmol/L 12 ALT 10 - 54 U/L 58 (H) eGFR- >60 eGFR-All Other Races . >60 ASSESSMENT/PLAN: 1. Right leg swelling - ICD9: 729.81, ICD10: M79.89 (primary diagnosis) ? Etiology. Will check US to rule out DVT vs thrombophlebitis. No concern for cellulitis. Discussed decreasing salt. Apply heat and keep leg elevated - US LEG VEIN DVT UNL VAS LAB 2. Essential hypertension, benign - ICD9: 401.1, ICD10: I10 - poor control - Continue current medication(s) - Recommended regular aerobic exercise. - Recommend home blood pressure monitoring, to bring results in on next visit - Recheck in 2 weeks, sooner should new symptoms or problems arise. - Goal of BP <130/80 3. Ventral hernia without obstruction or gangrene - ICD9: 553.20, ICD10: K43.9 Will consult surgeon - CONSULT TO GENERAL SURGERY Recheck in 2 weeks Discussed possible red flags and when to seek medical attention. Patient is in agreement with plan as stated above. Agrees to ER if develop shortness of breath or chest pain. LASHAY FELTON PA-C PROGRESS Observed: 06/18/2018 Status: COMPLETED Source: [place] 11:28 AM [facility] [place] REPOSITORY O ID: [id number] Author: Tomas Delgado Service: (none) Author Type: Physician Type: Progress Notes Filed: 06/18/2018 1:32 PM Note Text: Chief Complaint Patient presents with: Recheck: 6 months HPI Edd Dupont is a 43 year old male who presents here today for Chronic Medical Conditions.. Patient with hx of Dm type 2, Sleep apnea., HTN, Hyperlipidemia as well as those reviewed and addressed below. Has been doing ok but having some low back pain. Has been drinking pop on a regular basis and alovera juice which has sugar. Thinks he may need a brace for the left foot like his right to correct walking and this maybe why his low back is hurting. Past medical history, appointments, medications, allergies reviewed. Previous Medical History PAST MEDICAL HISTORY Diagnosis Date - Bilateral leg edema 10/05/2015 - Bilateral leg edema 10/05/2015 - Essential hypertension, benign - Hyperlipidemia - Morbid obesity (HCC) 07/06/2014 - Obstructive sleep apnea CPAP - Obstructive sleep apnea syndrome 10/05/2015 DME: [facility], has not been able to tolerate CPAP. - Obstructive sleep apnea syndrome 10/05/2015 DME: [facility], has not been able to tolerate CPAP. - Psoriasis 07/06/2014 - Uncontrolled type 2 diabetes mellitus without complication, without long-term current use of insulin ([facility]) 02/24/2016 Previous Surgical History PAST SURGICAL HISTORY Procedure Laterality Date - LAP REPAIR INTIAL INGUINAL HERNIA Left 02/19/2017 large bard 3D Max - OPEN FIXATN PROX END/NECK FEMUR FX ORIF femur - REPAIR ING HERNIA,5+Y/O,REDUCIBL 01/25/11 Right Family History FAMILY HISTORY Problem Relation Age of Onset - Hypertension Mother - Lipids Mother - Diabetes Mother - Obesity Mother - Prostate Cancer Paternal Grandfather - COPD Father - other (leukemia) Maternal Grandmother - Emphysema Maternal Grandfather Patient Allergies ALLERGIES Allergen Reactions - Codeine Other: See Comments headache Current Medications Current Outpatient Prescriptions on File Prior to Visit: sertraline (ZOLOFT) 50 mg tablet Take 1.5 tablets by mouth once daily. atorvastatin (LIPITOR) 80 mg tablet Take 80 mg by mouth once daily. lisinopril (ZESTRIL, PRINIVIL) 20 mg tablet Take 20 mg by mouth once daily. blood sugar diagnostic (RELION PRIME TEST STRIPS) test strip Test glucose 1 x per day. Dx: E11.65. Insulin use: no lancets (FREESTYLE LANCETS) 28 gauge misc Test blood sugar(s) one times daily. Dx: Type 2 DM - Uncontrolled E11.65 Insulin: No ammonium lactate (LAC-HYDRIN) 12 % cream Apply 1 application to affected area as needed. metFORMIN ER (GLUCOPHAGE XR) 500 mg 24 hr tablet Take two tabs in AM and one tab in PM Blood-Glucose Meter (BLOOD GLUCOSE MONITORING) monitoring kit 1 Each as needed. ezetimibe (ZETIA) 10 mg tablet Take 10 mg by mouth once daily. triamcinolone acetonide (KENALOG) 0.5 % cream Apply 1 application to affected area twice daily. Apply sparingly to affected area. gabapentin (NEURONTIN) 100 mg capsule Take 1 capsule by mouth three times daily. COMPOUNDED PRESCRIPTION Knee High Compression Stockings 20- 30 mm, DX: venous insufficiency, chronic No current facility-administered medications on file prior to visit. 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 Some swelling in his feet. Worse with prolonged sitting GI: No nausea, vomiting, or diarrhea and No heartburn or reflux symptoms : No history of dysuria or blood ENDOCRINE: no symptoms of low BS's recently. Has not been checking BS's recently. NEURO: No history of syncope, paralysis, seizures or tremors. Gets a headache on occasion, with no recent changes in them. Psych: Doing well with the zoloft. EXAM: BP 142/78 Pulse 80 Resp 16 Wt (!) 148.8 kg (328 lb) BMI 45.75 kg/m? BP 138/68 Pulse 80 Resp 16 Wt (!) 148.8 kg (328 lb) BMI 45.75 kg/m? Last 6 Encounter Wt Readings: Date: Wt: 06/18/2018 148.8 kg (328 lb) 01/07/2018 154.2 kg (340 lb) 09/04/2017 147.9 kg (326 lb) 06/08/2017 146.8 kg (323 lb 9.6 oz) 04/26/2017 147.4 kg (325 lb) 12/06/2016 142 kg (313 lb) General Appearance: Well appearing, alert, in no acute distress, well-hydrated, well nourished. and Morbidly obese. Eyes: Anicteric sclera. Pupils are equally round and reactive to light. Extraocular movements are intact. . Oropharynx: Lips, mucosa, and tongue normal, teeth and gums normal, oropharynx normal. Neck: Supple, no adenopathy; thyroid symmetric, normal size, no bruits. Lungs: Lungs clear to auscultation. No wheezing, rhonchi, rales. Heart: RRR without murmur, gallop, or rubs. No ectopy. Abdomen: Normal abdominal exam, Abdomen soft, non-tender. Bowel sounds normal. No masses, organomegaly. Extremities: No deformities, edema, skin discoloration. Musculoskeletal: Muscular strength intact, No joint swelling, deformity, or tenderness. Peripheral Pulses: Normal. Neurologic: Gait abnormal. Has a brace on the right foot.. Sensation to light touch and crainal nerves 2-12 intact.. Psych: Mood: Was ok, affect slightly flat but his baseline. Health Maintenance List BP CONTROLLED (<130/80) due on 02/22/1994 DILATED RETINAL EXAM due on 12/02/2017 STATIN MED ADHERENCE due on 07/18/2018 DIABETES MED ADHERENCE due on 07/18/2018 HBA1C due on 09/09/2018 DIABETIC FOOT EXAM due on 12/11/2018 URINE ALBUMIN:CREATININE RATIO due on 12/22/2018 ANNUAL PCP TEAM CHRONIC DISEASE VISIT due on 01/07/2019 LDL CHOLESTEROL due on 06/10/2019 DTAP,TDAP,TD(2 - Td) due on 10/05/2025 ONE PNEUMOVAX PRIOR TO AGE 65 Completed Data reviewed Component Latest Ref Rng AND Units 12/22/2017 06/10/2018 Protein, Total 6.3 - 8.0 g/dL 7.8 7.6 Albumin 3.9 - 4.9 g/dL 3.8 (L) 3.6 (L) Calcium 8.5 - 10.2 mg/dL 9.1 8.6 Bilirubin, Total 0.2 - 1.3 mg/dL 0.9 0.6 Alkaline Phosphatase 36 - 108 U/L 116 (H) 96 AST 14 - 40 U/L 62 (H) 54 (H) Glucose 74 - 99 mg/dL 139 (H) 147 (H) BUN 9 - 24 mg/dL 14 11 Creatinine 0.73 - 1.22 mg/dL 0.62 (L) 0.55 (L) Sodium 136 - 144 mmol/L 138 136 Potassium 3.7 - 5.1 mmol/L 4.3 4.1 Chloride 97 - 105 mmol/L 100 99 CO2 22 - 30 mmol/L 28 25 Anion Gap 9 - 18 mmol/L 10 12 ALT 10 - 54 U/L 71 (H) 58 (H) eGFR- >60 >60 eGFR-All Other Races . >60 >60 Cholesterol, Total <200 mg/dL 168 Triglyceride <150 mg/dL 107 HDL Cholesterol >39 mg/dL 42 LDL Cholesterol <100 mg/dL 105 (H) Non HDL Cholesterol <130 mg/dL 126 Fasting Time hrs 14 VLDL Cholesterol <30 mg/dL 21 TC:HDL Ratio <5.10 4.00 LDL:HDL Ratio <2.54 2.50 Total Cholesterol, Nonfasting <200 mg/dL 167 Triglycerides, Nonfasting <150 mg/dL 126 HDL Cholesterol, Nonfasting >39 mg/dL 39 (L) LDL Cholesterol, Nonfasting <100 mg/dL 103 (H) Non HDL Cholesterol, Nonfasting <130 mg/dL 128 VLDL Cholesterol, Nonfasting <30 mg/dL 25 Total Chol/HDL Ratio, Nonfasting <5.10 mg/dL 4.28 LDL/HDL Ratio, Nonfasting <2.54 mg/dL 2.64 (H) Creatinine, Ur Random (UCRR) 20 - 300 mg/dL 106.7 Albumin, Urine Random 0.0 - 23.0 mg/L <12.0 Albumin/Creat Ratio 0 - 30 mg/g Not calculated Hemoglobin A1C 4.3 - 5.6 % 6.7 (H) 8.2 (H) Estimated Average Glucose mg/dL 146 189 A/P ASSESSMENT/PLAN: 1. Uncontrolled type 2 diabetes mellitus without complication, without long-term current use of insulin (HCC) - ICD9: 250.02, ICD10: E11.65 (primary diagnosis) uncontrolled - Increase metformin (Glucophage) 500 mg to two twice a day - Encouraged regular aerobic exercise and weight loss - BP goal of <130/80 - LDL goal of <100 - Patient to cut out pop and the alovera juice. - METFORMIN ER 500 MG TABLET,EXTENDED RELEASE 24 HR 2. Diabetic eye exam (HCC) - ICD9: V72.0, 250.00, ICD10: Z01.00, E11.9 - Will have staff help get eye exam set of with [facility]. 3. Essential hypertension, benign - ICD9: 401.1, ICD10: I10 - good control - Continue current medication(s) - Recommended regular aerobic exercise. - Recommend home blood pressure monitoring, to bring results in on next visit - Goal of BP <130/80 - LISINOPRIL 20 MG TABLET 4. Mixed hyperlipidemia - ICD9: 272.2, ICD10: E78.2 - stablecontrol - Continue current medication. - Encouraged following a low fat, low cholesterol diet. - Discussed the benefits of regular aerobic exercise and weight loss. - Encouraged following a low carbohydrate, healthy oil intake diet. - EZETIMIBE 10 MG TABLET 5. Eczema, unspecified type - ICD9: 692.9, ICD10: L30.9 - Stable with current Tx. - AMMONIUM LACTATE 12 % TOPICAL CREAM - TRIAMCINOLONE ACETONIDE 0.5 % TOPICAL CREAM 6. MINH (generalized anxiety disorder) - ICD9: 300.02, ICD10: F41.1 Well controlled and cont: - SERTRALINE 50 MG TABLET 7. Obstructive sleep apnea syndrome - ICD9: 327.23, ICD10: G47.33 - Patient needs to get in contact with DME to get new equipment so he can get back to using 8. Morbid obesity due to excess calories (HCC) - ICD9: 278.01, ICD10: E66.01 - Patient to cont working on diet and exercise for further weight loss. 9. Need for vaccination - ICD9: V05.9, ICD10: Z23 - PNEUMOCOCCAL-13 VACCINE PCV-13 given Patient needs to get back into podiatry for possible brace for left foot. Walking better with brace on right but without one on left maybe source behind the left low back pain. Signed Prescriptions Disp Refills ammonium lactate (LAC-HYDRIN) 12 % cream 385 g 3 Sig: Apply 1 application to affected area as needed. ROSALIE: No triamcinolone acetonide (KENALOG) 0.5 % cream 1 Tube 0 Sig: Apply 1 application to affected area twice daily. Apply sparingly to affected area. ROSALIE: No sertraline (ZOLOFT) 50 mg tablet 45 tablet 5 Sig: Take 1.5 tablets by mouth once daily. ROSALIE: No metFORMIN ER (GLUCOPHAGE XR) 500 mg 24 hr tablet 360 tablet 1 Sig: Take two tabs in AM and PM ROSALIE: No lisinopril (ZESTRIL, PRINIVIL) 20 mg tablet 90 tablet 1 Sig: Take 1 tablet by mouth once daily. ROSALIE: No ezetimibe (ZETIA) 10 mg tablet 90 tablet 1 Sig: Take 1 tablet by mouth once daily. ROSALIE: No F/u 4 months routine. Check CMP, A1c and FLP prior F/u sooner if back not improving. Tomas Delgado MD CNOV Observed: 06/18/2018 Status: COMPLETED Source: [place] 11:00 AM [facility] REPOSITORY [facility] KIAHEDD Longoria ([id number]) 1975 M Date Time Provider Department 06/18/18 11:00 AM TOMAS DELGADO [facility] During your visit today, we recorded the following information about you: Pulse Respiration Blood pressure Weight 80/minute 16/minute 138/68 148.8 kg Tomas Delgado MD 06/18/2018 1:32 PM Signed Chief Complaint Patient presents with: Recheck: 6 months HPI Edd Dupont is a 43 year old male who presents here today for Chronic Medical Conditions.. Patient with hx of Dm type 2, Sleep apnea., HTN, Hyperlipidemia as well as those reviewed and addressed below. Has been doing ok but having some low back pain. Has been drinking pop on a regular basis and alovera juice which has sugar. Thinks he may need a brace for the left foot like his right to correct walking and this maybe why his low back is hurting. Past medical history, appointments, medications, allergies reviewed. Previous Medical History PAST MEDICAL HISTORY Diagnosis Date - Bilateral leg edema 10/05/2015 - Bilateral leg edema 10/05/2015 - Essential hypertension, benign - Hyperlipidemia - Morbid obesity (HCC) 07/06/2014 - Obstructive sleep apnea CPAP - Obstructive sleep apnea syndrome 10/05/2015 DME: [facility], has not been able to tolerate CPAP. - Obstructive sleep apnea syndrome 10/05/2015 DME: [facility], has not been able to tolerate CPAP. - Psoriasis 07/06/2014 - Uncontrolled type 2 diabetes mellitus without complication, without long-term current use of insulin (HCC) 02/24/2016 Previous Surgical History PAST SURGICAL HISTORY Procedure Laterality Date - LAP REPAIR INTIAL INGUINAL HERNIA Left 02/19/2017 large bard 3D Max - OPEN FIXATN PROX END/NECK FEMUR FX ORIF femur - REPAIR ING HERNIA,5+Y/O,REDUCIBL 01/25/11 Right Family History FAMILY HISTORY Problem Relation Age of Onset - Hypertension Mother - Lipids Mother - Diabetes Mother - Obesity Mother - Prostate Cancer Paternal Grandfather - COPD Father - other (leukemia) Maternal Grandmother - Emphysema Maternal Grandfather Patient Allergies ALLERGIES Allergen Reactions - Codeine Other: See Comments headache Current Medications Current Outpatient Prescriptions on File Prior to Visit: sertraline (ZOLOFT) 50 mg tablet Take 1.5 tablets by mouth once daily. atorvastatin (LIPITOR) 80 mg tablet Take 80 mg by mouth once daily. lisinopril (ZESTRIL, PRINIVIL) 20 mg tablet Take 20 mg by mouth once daily. blood sugar diagnostic (RELION PRIME TEST STRIPS) test strip Test glucose 1 x per day. Dx: E11.65. Insulin use: no lancets (FREESTYLE LANCETS) [facility] Test blood sugar(s) one times daily. Dx: Type 2 DM - Uncontrolled E11.65 Insulin: No ammonium lactate (LAC-HYDRIN) 12 % cream Apply 1 application to affected area as needed. metFORMIN ER (GLUCOPHAGE XR) 500 mg 24 hr tablet Take two tabs in AM and one tab in PM Blood-Glucose Meter (BLOOD GLUCOSE MONITORING) monitoring kit 1 Each as needed. ezetimibe (ZETIA) 10 mg tablet Take 10 mg by mouth once daily. triamcinolone acetonide (KENALOG) 0.5 % cream Apply 1 application to affected area twice daily. Apply sparingly to affected area. gabapentin (NEURONTIN) 100 mg capsule Take 1 capsule by mouth three times daily. COMPOUNDED PRESCRIPTION Knee High Compression Stockings 20- 30 mm, DX: venous insufficiency, chronic No current facility-administered medications on file prior to visit. 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 Some swelling in his feet. Worse with prolonged sitting GI: No nausea, vomiting, or diarrhea and No heartburn or reflux symptoms : No history of dysuria or blood ENDOCRINE: no symptoms of low BS's recently. Has not been checking BS's recently. NEURO: No history of syncope, paralysis, seizures or tremors. Gets a headache on occasion, with no recent changes in them. Psych: Doing well with the zoloft. EXAM: BP 142/78 Pulse 80 Resp 16 Wt (!) 148.8 kg (328 lb) BMI 45.75 kg/m? BP 138/68 Pulse 80 Resp 16 Wt (!) 148.8 kg (328 lb) BMI 45.75 kg/m? Last 6 Encounter Wt Readings: Date: Wt: 06/18/2018 148.8 kg (328 lb) 01/07/2018 154.2 kg (340 lb) 09/04/2017 147.9 kg (326 lb) 06/08/2017 146.8 kg (323 lb 9.6 oz) 04/26/2017 147.4 kg (325 lb) 12/06/2016 142 kg (313 lb) General Appearance: Well appearing, alert, in no acute distress, well-hydrated, well nourished. and Morbidly obese. Eyes: Anicteric sclera. Pupils are equally round and reactive to light. Extraocular movements are intact. . Oropharynx: Lips, mucosa, and tongue normal, teeth and gums normal, oropharynx normal. Neck: Supple, no adenopathy; thyroid symmetric, normal size, no bruits. Lungs: Lungs clear to auscultation. No wheezing, rhonchi, rales. Heart: RRR without murmur, gallop, or rubs. No ectopy. Abdomen: Normal abdominal exam, Abdomen soft, non-tender. Bowel sounds normal. No masses, organomegaly. Extremities: No deformities, edema, skin discoloration. Musculoskeletal: Muscular strength intact, No joint swelling, deformity, or tenderness. Peripheral Pulses: Normal. Neurologic: Gait abnormal. Has a brace on the right foot.. Sensation to light touch and crainal nerves 2-12 intact.. Psych: Mood: Was ok, affect slightly flat but his baseline. Health Maintenance List BP CONTROLLED (<130/80) due on 02/22/1994 DILATED RETINAL EXAM due on 12/02/2017 STATIN MED ADHERENCE due on 07/18/2018 DIABETES MED ADHERENCE due on 07/18/2018 HBA1C due on 09/09/2018 DIABETIC FOOT EXAM due on 12/11/2018 URINE ALBUMIN:CREATININE RATIO due on 12/22/2018 ANNUAL PCP TEAM CHRONIC DISEASE VISIT due on 01/07/2019 LDL CHOLESTEROL due on 06/10/2019 DTAP,TDAP,TD(2 - Td) due on 10/05/2025 ONE PNEUMOVAX PRIOR TO AGE 65 Completed Data reviewed Component Latest Ref Rng AND Units 12/22/2017 06/10/2018 Protein, Total 6.3 - 8.0 g/dL 7.8 7.6 Albumin 3.9 - 4.9 g/dL 3.8 (L) 3.6 (L) Calcium 8.5 - 10.2 mg/dL 9.1 8.6 Bilirubin, Total 0.2 - 1.3 mg/dL 0.9 0.6 Alkaline Phosphatase 36 - 108 U/L 116 (H) 96 AST 14 - 40 U/L 62 (H) 54 (H) Glucose 74 - 99 mg/dL 139 (H) 147 (H) BUN 9 - 24 mg/dL 14 11 Creatinine 0.73 - 1.22 mg/dL 0.62 (L) 0.55 (L) Sodium 136 - 144 mmol/L 138 136 Potassium 3.7 - 5.1 mmol/L 4.3 4.1 Chloride 97 - 105 mmol/L 100 99 CO2 22 - 30 mmol/L 28 25 Anion Gap 9 - 18 mmol/L 10 12 ALT 10 - 54 U/L 71 (H) 58 (H) eGFR- >60 >60 eGFR-All Other Races . >60 >60 Cholesterol, Total <200 mg/dL 168 Triglyceride <150 mg/dL 107 HDL Cholesterol >39 mg/dL 42 LDL Cholesterol <100 mg/dL 105 (H) Non HDL Cholesterol <130 mg/dL 126 Fasting Time hrs 14 VLDL Cholesterol <30 mg/dL 21 TC:HDL Ratio <5.10 4.00 LDL:HDL Ratio <2.54 2.50 Total Cholesterol, Nonfasting <200 mg/dL 167 Triglycerides, Nonfasting <150 mg/dL 126 HDL Cholesterol, Nonfasting >39 mg/dL 39 (L) LDL Cholesterol, Nonfasting <100 mg/dL 103 (H) Non HDL Cholesterol, Nonfasting <130 mg/dL 128 VLDL Cholesterol, Nonfasting <30 mg/dL 25 Total Chol/HDL Ratio, Nonfasting <5.10 mg/dL 4.28 LDL/HDL Ratio, Nonfasting <2.54 mg/dL 2.64 (H) Creatinine, Ur Random (UCRR) 20 - 300 mg/dL 106.7 Albumin, Urine Random 0.0 - 23.0 mg/L <12.0 Albumin/Creat Ratio 0 - 30 mg/g Not calculated Hemoglobin A1C 4.3 - 5.6 % 6.7 (H) 8.2 (H) Estimated Average Glucose mg/dL 146 189 A/P ASSESSMENT/PLAN: 1. Uncontrolled type 2 diabetes mellitus without complication, without long-term current use of insulin (HCC) - ICD9: 250.02, ICD10: E11.65 (primary diagnosis) uncontrolled - Increase metformin (Glucophage) 500 mg to two twice a day - Encouraged regular aerobic exercise and weight loss - BP goal of <130/80 - LDL goal of <100 - Patient to cut out pop and the alovera juice. - METFORMIN ER 500 MG TABLET,EXTENDED RELEASE 24 HR 2. Diabetic eye exam (HCC) - ICD9: V72.0, 250.00, ICD10: Z01.00, E11.9 - Will have staff help get eye exam set of with [facility]. 3. Essential hypertension, benign - ICD9: 401.1, ICD10: I10 - good control - Continue current medication(s) - Recommended regular aerobic exercise. - Recommend home blood pressure monitoring, to bring results in on next visit - Goal of BP <130/80 - LISINOPRIL 20 MG TABLET 4. Mixed hyperlipidemia - ICD9: 272.2, ICD10: E78.2 - stablecontrol - Continue current medication. - Encouraged following a low fat, low cholesterol diet. - Discussed the benefits of regular aerobic exercise and weight loss. - Encouraged following a low carbohydrate, healthy oil intake diet. - EZETIMIBE 10 MG TABLET 5. Eczema, unspecified type - ICD9: 692.9, ICD10: L30.9 - Stable with current Tx. - AMMONIUM LACTATE 12 % TOPICAL CREAM - TRIAMCINOLONE ACETONIDE 0.5 % TOPICAL CREAM 6. MINH (generalized anxiety disorder) - ICD9: 300.02, ICD10: F41.1 Well controlled and cont: - SERTRALINE 50 MG TABLET 7. Obstructive sleep apnea syndrome - ICD9: 327.23, ICD10: G47.33 - Patient needs to get in contact with DME to get new equipment so he can get back to using 8. Morbid obesity due to excess calories (HCC) - ICD9: 278.01, ICD10: E66.01 - Patient to cont working on diet and exercise for further weight loss. 9. Need for vaccination - ICD9: V05.9, ICD10: Z23 - PNEUMOCOCCAL-13 VACCINE PCV-13 given Patient needs to get back into podiatry for possible brace for left foot. Walking better with brace on right but without one on left maybe source behind the left low back pain. Signed Prescriptions Disp Refills ammonium lactate (LAC-HYDRIN) 12 % cream 385 g 3 Sig: Apply 1 application to affected area as needed. ROSALIE: No triamcinolone acetonide (KENALOG) 0.5 % cream 1 Tube 0 Sig: Apply 1 application to affected area twice daily. Apply sparingly to affected area. ROSALIE: No sertraline (ZOLOFT) 50 mg tablet 45 tablet 5 Sig: Take 1.5 tablets by mouth once daily. ROSALIE: No metFORMIN ER (GLUCOPHAGE XR) 500 mg 24 hr tablet 360 tablet 1 Sig: Take two tabs in AM and PM ROSALIE: No lisinopril (ZESTRIL, PRINIVIL) 20 mg tablet 90 tablet 1 Sig: Take 1 tablet by mouth once daily. ROSALIE: No ezetimibe (ZETIA) 10 mg tablet 90 tablet 1 Sig: Take 1 tablet by mouth once daily. ROSALIE: No F/u 4 months routine. Check CMP, A1c and FLP prior F/u sooner if back not improving. MD Tomas Encarnacion MD 06/18/2018 11:51 AM Signed Please stop the pop and alovera juice. Please get fasting labs on or after 10/08/2018 prior to next visit. Referring Provider: BREANNE VALIENTE (LOADER) [[id number]] Allergies As of Date: 06/18/2018 Noted Allergy Reaction CODEINE 01/12/2011 14 - Other: See Comments Comments: headache Date Reviewed: 06/18/2018 Reviewed by: Tomas Delgado - Fully Assessed Reason for Visit: Recheck [92] Cmt: 6 months Primary Visit Diagnosis:Uncontrolled type 2 diabetes mellitus without complication, without long-term current use of insulin (HCC) [E11.65] Other Visit Diagnoses:Diabetic eye exam (HCC) [Z01.00, E11.9] Essential hypertension, benign [I10] Mixed hyperlipidemia [E78.2] Eczema, unspecified type [L30.9] MINH (generalized anxiety disorder) [F41.1] Obstructive sleep apnea syndrome [G47.33] Morbid obesity due to excess calories (HCC) [E66.01] Need for vaccination [Z23] Order(s):ammonium lactate (LAC-HYDRIN) 12 % creamApply 1 application to affected area as needed.Disp: 385 gRfl: 3 triamcinolone acetonide (KENALOG) 0.5 % creamApply 1 application to affected area twice daily. Apply sparingly to affected area.Disp: 1 TubeRfl: 0 sertraline (ZOLOFT) 50 mg tabletTake 1.5 tablets by mouth once daily.Disp: 45 tabletRfl: 5 metFORMIN ER (GLUCOPHAGE XR) 500 mg 24 hr tabletTake two tabs in AM and PMDisp: 360 tabletRfl: 1 lisinopril (ZESTRIL, PRINIVIL) 20 mg tabletTake 1 tablet by mouth once daily.Disp: 90 tabletRfl: 1 ezetimibe (ZETIA) 10 mg tabletTake 1 tablet by mouth once daily.Disp: 90 tabletRfl: 1 PNEUMOCOCCAL-13 VACCINE PCV-13 [[id number]] Order #: [id number] COMP METABOLIC PANEL [SQCMP] Order #: [id number] FUTURE HGB A1C [SCJGT3X] Order #: [id number] FUTURE LIPID PANEL, NONFASTING [SQLIPNF] Order #: [id number] FUTURE Prescriptions as of 06/18/2018 Sig: AMMONIUM LACTATE 12 % TOPICAL* Apply 1 application to affect* TRIAMCINOLONE ACETONIDE 0.5 %* Apply 1 application to affect* SERTRALINE 50 MG TABLET Take 1.5 tablets by mouth onc* METFORMIN ER 500 MG TABLET,EX* Take two tabs in AM and PM LISINOPRIL 20 MG TABLET Take 1 tablet by mouth once d* ATORVASTATIN 80 MG TABLET Take 80 mg by mouth once annalisa* BLOOD SUGAR DIAGNOSTIC STRIPS Test glucose 1 x per day. Dx:* LANCETS 28 GAUGE Test blood sugar(s) one times* BLOOD-GLUCOSE METER KIT 1 Each as needed. GABAPENTIN 100 MG CAPSULE Take 1 capsule by mouth three* EZETIMIBE 10 MG TABLET Take 1 tablet by mouth once d* COMPOUNDED PRESCRIPTION Knee High Compression Stockin* More... Problem List As Of Date 06/18/2018 Noted Resolved Psoriasis [L40.9] INVALID FOR* Priority: D Essential hypertension, benign [I10] INVALID FOR* Priority: A Mixed hyperlipidemia [E78.2] INVALID FOR* Priority: A Bilateral leg edema [R60.0] INVALID FOR*10/10/2016 Priority: B Well adult exam [Z00.00] INVALID FOR*10/10/2016 Priority: E More... Obstructive sleep apnea syndrome [G47.33] INVALID FOR*10/10/2016 Priority: B More... Morbid obesity due to excess calories (HCC) [E6*INVALID FOR* Priority: B Uncontrolled type 2 diabetes mellitus without c*INVALID FOR* Priority: A Urinary frequency [R35.0] INVALID FOR*10/10/2016 Priority: C Diabetic eye exam (HCC) [Z01.00, E11.9] INVALID FOR* Priority: A More... 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 Other instructions from your clinician: Please stop the pop and alovera juice. Please get fasting labs on or after 10/08/2018 prior to next visit. Prescriptions ordered this encounter Disp Refills Start End AMMONIUM LACTATE 12 % TOPICAL CREAM 385 g 3 06/18/2018 Route: TOPICAL Sig: Apply 1 application to affected area as needed. TRIAMCINOLONE ACETONIDE 0.5 % TOPICA* 1 Tu* 0 06/18/2018 Route: TOPICAL Sig: Apply 1 application to affected area twice daily. Apply sparingly to affected area. SERTRALINE 50 MG TABLET 45 t* 5 06/18/2018 Route: ORAL Sig: Take 1.5 tablets by mouth once daily. METFORMIN ER 500 MG TABLET,EXTENDED * 360 * 1 06/18/2018 Sig: Take two tabs in AM and PM LISINOPRIL 20 MG TABLET 90 t* 1 06/18/2018 Route: ORAL Sig: Take 1 tablet by mouth once daily. EZETIMIBE 10 MG TABLET 90 t* 1 06/18/2018 Cmt: LDL not below goal of less than 100 on 80 mg of lipitor by itself. Route: ORAL Sig: Take 1 tablet by mouth once daily. Medications Discontinued During This Encounter CPAP 1 De* 0 01/18/2016 06/18/2018 Class: Print RX Sig: Pressure change autoPAP 5-14 cmH2O. Dx: BAN Disc: Discontinued by Patient amoxicillin-clavulanic acid (AUGMENT* 20 t* 0 01/07/2018 06/18/2018 Route: ORAL Sig: Take 1 tablet by mouth every 12 hours. Disc: Course of therapy completed ammonium lactate (LAC-HYDRIN) 12 % c* 385 g 3 09/04/2017 06/18/2018 Route: TOPICAL Sig: Apply 1 application to affected area as needed. Disc: Reason for discontinue is not on file. triamcinolone acetonide (KENALOG) 0.* 1 Tu* 0 06/08/2017 06/18/2018 Route: TOPICAL Sig: Apply 1 application to affected area twice daily. Apply sparingly to affected area. Disc: Reason for discontinue is not on file. sertraline (ZOLOFT) 50 mg tablet 45 t* 5 01/07/2018 06/18/2018 Route: ORAL Sig: Take 1.5 tablets by mouth once daily. Disc: Reason for discontinue is not on file. metFORMIN ER (GLUCOPHAGE XR) 500 mg * 270 * 1 09/04/2017 06/18/2018 Cmt: Can not tolerate more than 1 twice a day Sig: Take two tabs in AM and one tab in PM Disc: Reason for discontinue is not on file. lisinopril (ZESTRIL, PRINIVIL) 20 mg* 90 t* 1 09/04/2017 06/18/2018 Route: ORAL Sig: Take 20 mg by mouth once daily. Disc: Reason for discontinue is not on file. ezetimibe (ZETIA) 10 mg tablet 90 t* 1 09/04/2017 06/18/2018 Cmt: Patient with DM type 2 with a goal LDL of less than 100. currently LDL staying above 130 and is on maximum dose of lipitor at 80 mg a day. Route: ORAL Sig: Take 10 mg by mouth once daily. Disc: Reason for discontinue is not on file. Disposition: Return in about 4 months (around 10/19/2018) for tavia. Follow-up and Disposition History Recorded Encounter Status:Closed by MICHAELA HEWITT MA on 06/18/18 COMP METABOLIC PANEL Collected: 06/10/2018 Status: F Source: [place] 8:41 AM [facility] REPOS[facility] TYPE CODE TESTS RESULT OUT OF REFERENCE UNITS RANGE LAB TP 6.3-8.0 g/dL Protein, Total 7.6 LAB ALB 3.9-4.9 g/dL Low Albumin 3.6 LAB CA 8.5-10.2 mg/dL Calcium, Total 8.6 LAB TBIL 0.2-1.3 mg/dL Bilirubin, Total 0.6 LAB ALKP 36-108 U/L Alkaline Phosphatase 96 LAB AST 14-40 U/L AST High 54 LAB GLU 74-99 mg/dL Glucose High 147 Result Comment: The [place] Diabetes [employer] (ADA) provides guidance for cutoff values for fasting glucose and random glucose. The ADA defines fasting as no caloric intake for at least 8 hours. Fas ting plasma glucose results between 100 to 125 mg/dL indicate increased risk for diabetes (prediabetes). Fasting plasma glucose results greater than or equal to 126 mg/dL meet the criteria for diagnosis of diabetes. In the absence of unequivocal hyperglycemia, results should be confirmed by repeat testing. In a patient with classic symptoms of hyperglycemia or hyperglycemic crisis, random plasma glucose results greater than or equal to 200 mg/dL meet the criteria for diagnosis of diabetes. Reference: Standards of Medical Care in Diabetes 2016, [place] [employer]. Diabetes Care. 2016.39(Suppl 1). LAB BUN 9-24 mg/dL BUN 11 LAB CRET 0.73-1.22 mg/dL Low Creatinine 0.55 LAB NA 136-144 mmol/L Sodium 136 LAB K 3.7-5.1 mmol/L Potassium 4.1 LAB CL 97-105 mmol/L Chloride 99 LAB CO2 22-30 mmol/L CO2 25 LAB AGAP 9-18 mmol/L Anion Gap 12 LAB ALT 10-54 U/L ALT High 58 LAB GFRAA eGFR- Amer. >60 LAB GFRNAA . eGFR-All Other Races >60 Result Comment: eGFR (Estimated GFR) Units of measure: mL/min/1.73 meters squared eGFR is derived from the reexpressed MDRD Study equation using the following parameters: serum creatinine, age, gender and race. The creatinine assay has been calibrated to be traceable to IDMS. An eGFR <60 mL/min/1.73m2 for >3 months is consistent with chronic kidney disease. Refer to KDOQI guidelines for clinical interpretation. In patients with unstable renal function, e.g. those with acute kidney injury, the eGFR may not accurately reflect actual GFR. Performed By: #### CMP, LIPNF, HBA1C #### [facility] [address] [address] LIPID PANEL, NONFAST Collected: 06/10/2018 Status: F Source: [place] 8:41 AM [facility] [place] REPOSITORY TYPE CODE TESTS RESULT OUT OF REFERENCE UNITS RANGE LAB CHOLNF <200 mg/dL Total Cholesterol NF 167 Result Comment: <200 mg/dL, Desirable 200-239 mg/dL, Borderline high >239 mg/dL, High LAB TRIGNF <150 mg/dL Triglycerides, NF 126 Result Comment: <150 mg/dL, Normal 150-199 mg/dL, Borderline high 200-499 mg/dL, High >499 mg/dL, Very high LAB HDLNF >39 mg/dL HDL Cholesterol, NF Low 39 Result Comment: 40-59 mg/dL, Acceptable >59 mg/dL, High: Negative risk factor for coronary heart disease <40 mg/dL, Low: Positive risk factor for coronary heart disease LAB LDLNF <100 mg/dL LDL Cholesterol, High NF 103 Result Comment: <100 mg/dL, Optimal 100-129 mg/dL, Near optimal/above optimal 130-159 mg/dL, Borderline high 160-189 mg/dL, High >189 mg/dL, Very high Secondary prevention optimal LDL Cholesterol levels are recommended to be < 70 mg/dL LAB NOHDLN <130 mg/dL Non HDL Chol, 128 NF Result Comment: <130 mg/dL, Optimal 130-159 mg/dL, Near optimal/above optimal 160-189 mg/dL, Borderline high 190-219 mg/dL, High >219 mg/dL, Very high Secondary prevention optimal non HDL Cholesterol levels are recommended to be < 100 mg/dL LAB VLDLNF <30 mg/dL VLDL Cholesterol, NF 25 LAB TCHDLN <5.10 mg/dL T Chol/HDL Ratio NF 4.28 LAB LDLHDN <2.54 mg/dL LDL/HDL Ratio, NF High 2.64 Result Comment: Reference: 1. National Cholesterol Education Program ATP III Guideline At-A-Glance Quick Desk Reference: National Heart, Lung, and Blood [place]. National Institutes of Health. 2001: NIH Publication No. 01-3305. 2. An International Atherosclerosis Society position paper: global recommendations for the management of dyslipidemia: executive summary, Atherosclerosis. 2014: 232(2):410-413. Performed By: #### CMP, LIPNF, HBA1C #### [facility] [place] [address] [place] [id number] HEMOGLOBIN A1C Collected: 06/10/2018 Status: F Source: [place] 8:41 AM [facility] REPOSITORY TYPE CODE TESTS RESULT OUT OF REFERENCE UNITS RANGE LAB HGBA1C 4.3-5.6 % High Hemoglobin A1c 8.2 LAB HBA0 mg/dL Est. Average Glucose 189 Result Comment: eAG: (Estimated average glucose) is a calculated value from HgbA1c and is solar sales representative and assessor of the average blood glucose level in the last 2-3 month period. Performed By: #### CMP, LIPNF, HBA1C #### [facility] [place] [address] [place], [place] [id number] [phone] CNPTOUTREACH Observed: 06/04/2018 Status: COMPLETED Source: [place] 12:00 AM [facility] REPOSITORY Patient Outreach (FAMPST) EDD DUPONT ([id number]) 1975 M Date Time Provider Department 06/04/18 TOMAS DELGADO [facility]AMPST During your visit today, we recorded the following information about you: Allergies As of Date: 06/04/2018 Noted Allergy Reaction CODEINE 01/12/2011 14 - Other: See Comments Comments: headache Date Reviewed: 01/07/2018 Reviewed by: Yenny ([facility]) VICKIE Laguna - Fully Assessed Primary Visit Diagnosis:Mixed hyperlipidemia [E78.2] Other Visit Diagnoses:Medication management [Z79.899] Essential hypertension, benign [I10] Uncontrolled type 2 diabetes mellitus without complication, without long-term current use of insulin (HCC) [E11.65] Order(s):HGB A1C [[id number]] Order #: [id number] FUTURE COMP METABOLIC PANEL [SQCMP] Order #: [id number] FUTURE LIPID PANEL, NONFASTING [SQLIPNF] Order #: [id number] FUTURE Prescriptions as of 06/04/2018 Sig: X SERTRALINE 50 MG TABLET Take 1.5 tablets by mouth onc* X AMOXICILLIN 875 MG-POTASSIUM * Take 1 tablet by mouth every * BLOOD SUGAR DIAGNOSTIC STRIPS Test glucose 1 x per day. Dx:* LANCETS 28 GAUGE Test blood sugar(s) one times* BLOOD-GLUCOSE METER KIT 1 Each as needed. X ATORVASTATIN 80 MG TABLET Take 80 mg by mouth once annalisa* X LISINOPRIL 20 MG TABLET Take 20 mg by mouth once annalisa* X AMMONIUM LACTATE 12 % TOPICAL* Apply 1 application to affect* X METFORMIN ER 500 MG TABLET,EX* Take two tabs in AM and one t* X EZETIMIBE 10 MG TABLET Take 10 mg by mouth once annalisa* X TRIAMCINOLONE ACETONIDE 0.5 %* Apply 1 application to affect* X GABAPENTIN 100 MG CAPSULE Take 1 capsule by mouth three* COMPOUNDED PRESCRIPTION Knee High Compression Stockin* X CPAP Pressure change autoPAP 5-14 * More... Problem List As Of Date 06/04/2018 Noted Resolved Psoriasis [L40.9] INVALID FOR* Priority: D Essential hypertension, benign [I10] INVALID FOR* Priority: A Mixed hyperlipidemia [E78.2] INVALID FOR* Priority: A Bilateral leg edema [R60.0] INVALID FOR*10/10/2016 Priority: B Well adult exam [Z00.00] INVALID FOR*10/10/2016 Priority: E More... Obstructive sleep apnea syndrome [G47.33] INVALID FOR*10/10/2016 Priority: B More... Morbid obesity due to excess calories (HCC) [E6*INVALID FOR* Priority: B Uncontrolled type 2 diabetes mellitus without c*INVALID FOR* Priority: A Urinary frequency [R35.0] INVALID FOR*10/10/2016 Priority: C Diabetic eye exam (HCC) [Z01.00, E11.9] INVALID FOR* Priority: A More... 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 Patient sees Dr. Delgado, previous appt cancelled due to provider unavailable. New concerns today include 1. Hemoptysis past 1-2 weeks, nose bleeds, headaches across frontal sinuses and nasal congestion. Coughing up blood is intermittent. After further details From patient he relates blood tinged post nasal drainage and not deriving from cough. History as documented below. Known T2DM, weight gain over winter, admits poor diet and no devoted exercise. Component Latest Ref Rng AND Units 12/22/2017 Protein, Total 6.3 - 8.0 g/dL 7.8 Albumin 3.9 - 4.9 g/dL 3.8 (L) Calcium 8.5 - 10.2 mg/dL 9.1 Bilirubin, Total 0.2 - 1.3 mg/dL 0.9 Alkaline Phosphatase 36 - 108 U/L 116 (H) AST 14 - 40 U/L 62 (H) Glucose 74 - 99 mg/dL 139 (H) BUN 9 - 24 mg/dL 14 Creatinine 0.73 - 1.22 mg/dL 0.62 (L) Sodium 136 - 144 mmol/L 138 Potassium 3.7 - 5.1 mmol/L 4.3 Chloride 97 - 105 mmol/L 100 CO2 22 - 30 mmol/L 28 Anion Gap 9 - 18 mmol/L 10 ALT 10 - 54 U/L 71 (H) eGFR- >60 eGFR-All Other Races . >60 Color Yellow Yellow Clarity Clear Clear Glucose, Urine Negative mg/dL Negative Bilirubin, Urine Negative Negative Ketones, Urine Negative Negative Specific Amanda, Ur 1.005 - 1.030 1.020 Hemoglobin/Blood,Ur Negative Negative pH, Urine 4.5 - 8.0 5.0 Protein, Urine Negative mg/dL Negative Urobilinogen Normal Normal Nitrites Negative Negative Leukest Negative Trace (A) Comments SEE COMMENT Urine Pedro Comment SEE COMMENT WBC, Urine 0 - 5 /HPF 6-10 (A) RBC, Urine 0 - 3 /HPF 0-3 Epithelial Cells /HPF SEE COMMENT Cholesterol, Total <200 mg/dL 168 Triglyceride <150 mg/dL 107 HDL Cholesterol >39 mg/dL 42 LDL Cholesterol <100 mg/dL 105 (H) Non HDL Cholesterol <130 mg/dL 126 Fasting Time hrs 14 VLDL Cholesterol <30 mg/dL 21 TC:HDL Ratio <5.10 4.00 LDL:HDL Ratio <2.54 2.50 Creatinine, Ur Random (UCRR) 20 - 300 mg/dL 106.7 Albumin, Urine Random 0.0 - 23.0 mg/L <12.0 Albumin/Creat Ratio 0 - 30 mg/g Not calculated Hemoglobin A1C 4.3 - 5.6 % 6.7 (H) Estimated Average Glucose mg/dL 146 Last 3 Encounter Wt Readings: Date: Wt: 01/07/2018 154.2 kg (340 lb) 09/04/2017 147.9 kg (326 lb) 06/08/2017 146.8 kg (323 lb 9.6 oz) HEALTH MAINTENANCE Exercises regularly : Minimal exercise associated with work or ADL's Cholesterol screening up to date Yes PAST MEDICAL HISTORY Diagnosis Date - Bilateral leg edema 10/05/2015 - Bilateral leg edema 10/05/2015 - Essential hypertension, benign - Hyperlipidemia - Morbid obesity (HCC) 07/06/2014 - Obstructive sleep apnea CPAP - Obstructive sleep apnea syndrome 10/05/2015 DME: [facility], has not been able to tolerate CPAP. - Obstructive sleep apnea syndrome 10/05/2015 DME: [facility], has not been able to tolerate CPAP. - Psoriasis 07/06/2014 - Uncontrolled type 2 diabetes mellitus without complication, without long-term current use of insulin (HCC) 02/24/2016 PAST SURGICAL HISTORY Procedure Laterality Date - LAP REPAIR INTIAL INGUINAL HERNIA Left 02/19/2017 large bard 3D Max - OPEN FIXATN PROX END/NECK FEMUR FX ORIF femur - REPAIR ING HERNIA,5+Y/O,REDUCIBL 01/25/11 Right FAMILY HISTORY Problem Relation Age of Onset - Hypertension Mother - Lipids Mother - Diabetes Mother - Obesity Mother - Prostate Cancer Paternal Grandfather - COPD Father - leukemia [OTHER] Maternal Grandmother - Emphysema Maternal Grandfather Social History Marital status: Single Spouse name: Years of education: Number of children: Social History Main Topics Smoking status: Former Smoker Packs/day: 0.00 Years: 0.00 Smokeless status: Never Used Comment: Smoked very little Alcohol use: Yes Comment: occasionally Drug use: No Sexual activity: No Other Topics Concern Service No Blood Transfusions No Caffeine Concern No 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 Sleep Concern Yes Stress Concern Yes Comment:work, going through divorce Weight Concern Yes Special Diet Yes Comment:diabetic Back Care No Exercise No Bike Helmet No Comment:na Seat Belt No Immunization History Administered Date(s) Administered Influenza Seasonal Inj Age 3+ 07/06/2014 Influenza Seasonal Inj Quadrivalent Age 3+ 06/04/2015 Pneumovax 03/30/2016 Tdap (Age 7+) 10/05/2015 ACTIVE PROBLEM LIST Psoriasis Essential Hypertension, Benign Mixed Hyperlipidemia Morbid Obesity Due to Excess Calories (Hcc) Uncontrolled Type 2 Diabetes Mellitus Without Complication, Without Long-Term Current Use of Insulin (Hcc) Diabetic Eye Exam (Hcc) Hidden Penis Eczema REVIEW OF SYSTEMS General: Denies fever, chills, night sweats, or changes in weight. Dermatologic: Denies any new skin conditions, rashes or changing moles., Positive for itchy rash anterior lower rodríguez. Eyes: Denies recent visual changes. ENT: Denies hearing loss or tinnitus, Last dental exam was no regular dental visits Respiratory: Denies any cough, dyspnea, or wheezing., Positive for hemoptysis,, describes as phlem in throat. Cardiovascular: Denies any chest pain with exertion or at rest, palpitations, syncope, or edema. Gastrointestinal: Denies any nausea, vomiting, abdominal pain, heartburn, changes in bowel habit, Denies melena, Denies any rectal bleeding. Genitourinary: Denies Denies dysuria, frequency, urgency, incontinence, erectile dysfunction, and hematuria., Denies problems with urinary stream. Musculoskeletal: Denies any joint swelling, crepitus, joint pain, or loss of range of motion., Denies back pain. Neurologic: Positive for headaches, and dizziness. Psychiatric: Denies any sleeping problems, history of abuse, marital discord. Positive: anxious. Hematologic/Lymphatic/Immunologic: Denies anemia, bruising, bleeding abnormalities, HIV risk factors Endocrine: Denies any heat or cold intolerance, polyuria or polydipsia. OBJECTIVE: PHYSICAL EXAMINATION: BP 137/74 Pulse 76 Resp 16 Ht 180.3 cm (5' 11) Wt (!) 154.2 kg (340 lb) BMI 47.42 kg/m2 GENERAL APPEARANCE Morbidly obese, well appearing, alert, in no acute distress SKIN: Positives: Rash: Left anterior rodríguez, consistent with eczema. HEAD: No significant findings. EYES: PERRLA, EOMI EARS: external ears normal, canals clear, TM's normal NOSE/SINUSES: Nares normal. Septum midline., Positive findings: mucosa erythematous and swollen, Sinus tenderness over right maxillary sinus. OROPHARYNX: Lips, mucosa, and tongue normal, oropharynx normal. and positive findings: 2 front upper teeth, decayed to to gumline NECK: Supple, full range of motion, no lymphadenopathy, normal thyroid and no carotid bruits BACK: Back symmetric, Normal curvature, ROM normal, No CVAT. LUNGS: clear to auscultation HEART: Normal PMI, Regular rate and rhythm, Normal heart sounds, S1 and S2 and No murmurs. ABDOMEN: Soft, Obese, Non-tender, No palpable masses, Normal bowel sounds, No abdominal bruits, No hepatosplenomegaly. and Exam is limited due to body habitus. EXTREMTIES: extremities normal, no deformities, no skin discoloration, no edema, extremity pulses equal and symmetric. Positive: varicose veins. NEURO: Awake, alert and oriented x 3, Cranial nerves II-XII grossly intact, Normal gait, No involuntary motions. GENITALIA: Exam deferred RECTAL: Exam deferred ASSESSMENT/PLAN: 1. Encounter for wellness examination in adult - ICD9: V70.0, ICD10: Z00.00 (primary diagnosis) - Recommended regular aerobic exercise. - Discussed need and benefit for weight loss. BMI 47.42 kg/(m2) - Follow up for annual exam in one year. 2. Morbid obesity due to excess calories (HCC) - ICD9: 278.01, ICD10: E66.01 - Discussed dietary modifications with patient, tracking food intake and increase activity with daily walks. 3. Eczema, unspecified type - ICD9: 692.9, ICD10: L30.9 - discussed skin care of rash - follow up if symptoms persist or worsen. - - To resume triamcinolone cream 7-10 days, no longer than 2 weeks, along with moisturizer lotion. If not improved then recommend Dermatology. Sx suspicious of Psoriasis. 4. Uncontrolled type 2 diabetes mellitus without complication, without long-term current use of insulin (HCC) - ICD9: 250.02, ICD10: E11.65 improved control - Continue current medications - Encouraged regular aerobic exercise and weight loss - Follow up in 6 months, sooner should any other issues arise. - Discussed diabetic education issues of importance of exercise with patient. 5. Anxiety - ICD9: 300.00, ICD10: F41.9 - poor control. Will increase Zoloft to 75 mg at this time 6. MINH (generalized anxiety disorder) - ICD9: 300.02, ICD10: F41.1 - SERTRALINE 50 MG TABLET 7. Cough with hemoptysis - ICD9: 786.39, ICD10: R04.2 - Likely related to sinus infection/congestion. Further details from patient, it is not coming from cough but rather post nasal drainage. - CXR if not improved - XR CHEST 2V FRONTAL/LAT 8. Bacterial sinusitis - ICD9: 473.9, 041.9, ICD10: J32.9, B96.89 - Will begin treatment with Augmentin 875 mg PO BID for 10 days - AMOXICILLIN 875 MG-POTASSIUM CLAVULANATE 125 MG TABLET Breanne Valiente, MSN CAREER MANAGER.LORI CNOV Observed: 01/07/2018 Status: COMPLETED Source: [place] 9:00 AM [facility] REPOSITORY Office Visit (FAMPWS) EDD DUPONT ([id number]) 1975 M Date Time Provider Department 01/07/18 9:00 AM BREANNE VALIENTE (LOADER) FAMPWS During your visit today, we recorded the following information about you: Pulse Respiration Blood pressure Weight 76/minute 16/minute 137/74 154.2 kg Height 1.803 m Breanne Valiente, OJ CAREER MANAGER.GUARD DRIVER 01/07/2018 7:07 PM Signed Patient presents with: Physical SUBJECTIVE: Chief Complaint: Edd Dupont is a 42 year old male who presents for complete physical exam. Patient sees Dr. Delgado, previous appt cancelled due to provider unavailable. New concerns today include 1. Hemoptysis past 1-2 weeks, nose bleeds, headaches across frontal sinuses and nasal congestion. Coughing up blood is intermittent. After further details From patient he relates blood tinged post nasal drainage and not deriving from cough. History as documented below. Known T2DM, weight gain over winter, admits poor diet and no devoted exercise. Component Latest Ref Rng ANDamp; Units 12/22/2017 Protein, Total 6.3 - 8.0 g/dL 7.8 Albumin 3.9 - 4.9 g/dL 3.8 (L) Calcium 8.5 - 10.2 mg/dL 9.1 Bilirubin, Total 0.2 - 1.3 mg/dL 0.9 Alkaline Phosphatase 36 - 108 U/L 116 (H) AST 14 - 40 U/L 62 (H) Glucose 74 - 99 mg/dL 139 (H) BUN 9 - 24 mg/dL 14 Creatinine 0.73 - 1.22 mg/dL 0.62 (L) Sodium 136 - 144 mmol/L 138 Potassium 3.7 - 5.1 mmol/L 4.3 Chloride 97 - 105 mmol/L 100 CO2 22 - 30 mmol/L 28 Anion Gap 9 - 18 mmol/L 10 ALT 10 - 54 U/L 71 (H) eGFR- ANDgt;60 eGFR-All Other Races . ANDgt;60 Color Yellow Yellow Clarity Clear Clear Glucose, Urine Negative mg/dL Negative Bilirubin, Urine Negative Negative Ketones, Urine Negative Negative Specific Amanda, Ur 1.005 - 1.030 1.020 Hemoglobin/Blood,Ur Negative Negative pH, Urine 4.5 - 8.0 5.0 Protein, Urine Negative mg/dL Negative Urobilinogen Normal Normal Nitrites Negative Negative Leukest Negative Trace (A) Comments SEE COMMENT Urine Pedro Comment SEE COMMENT WBC, Urine 0 - 5 /HPF 6-10 (A) RBC, Urine 0 - 3 /HPF 0-3 Epithelial Cells /HPF SEE COMMENT Cholesterol, Total ANDlt;200 mg/dL 168 Triglyceride ANDlt;150 mg/dL 107 HDL Cholesterol ANDgt;39 mg/dL 42 LDL Cholesterol ANDlt;100 mg/dL 105 (H) Non HDL Cholesterol ANDlt;130 mg/dL 126 Fasting Time hrs 14 VLDL Cholesterol ANDlt;30 mg/dL 21 TC:HDL Ratio ANDlt;5.10 4.00 LDL:HDL Ratio ANDlt;2.54 2.50 Creatinine, Ur Random (UCRR) 20 - 300 mg/dL 106.7 Albumin, Urine Random 0.0 - 23.0 mg/L ANDlt;12.0 Albumin/Creat Ratio 0 - 30 mg/g Not calculated Hemoglobin A1C 4.3 - 5.6 % 6.7 (H) Estimated Average Glucose mg/dL 146 Last 3 Encounter Wt Readings: Date: Wt: 01/07/2018 154.2 kg (340 lb) 09/04/2017 147.9 kg (326 lb) 06/08/2017 146.8 kg (323 lb 9.6 oz) HEALTH MAINTENANCE Exercises regularly : Minimal exercise associated with work or ADL's Cholesterol screening up to date Yes PAST MEDICAL HISTORY Diagnosis Date - Bilateral leg edema 10/05/2015 - Bilateral leg edema 10/05/2015 - Essential hypertension, benign - Hyperlipidemia - Morbid obesity (HCC) 07/06/2014 - Obstructive sleep apnea CPAP - Obstructive sleep apnea syndrome 10/05/2015 DME: [facility], has not been able to tolerate CPAP. - Obstructive sleep apnea syndrome 10/05/2015 DME: [facility], has not been able to tolerate CPAP. - Psoriasis 07/06/2014 - Uncontrolled type 2 diabetes mellitus without complication, without long-term current use of insulin (HCC) 02/24/2016 PAST SURGICAL HISTORY Procedure Laterality Date - LAP REPAIR INTIAL INGUINAL HERNIA Left 02/19/2017 large bard 3D Max - OPEN FIXATN PROX END/NECK FEMUR FX ORIF femur - REPAIR ING HERNIA,5+Y/O,REDUCIBL 01/25/11 Right FAMILY HISTORY Problem Relation Age of Onset - Hypertension Mother - Lipids Mother - Diabetes Mother - Obesity Mother - Prostate Cancer Paternal Grandfather - COPD Father - leukemia [OTHER] Maternal Grandmother - Emphysema Maternal Grandfather Social History Marital status: Single Spouse name: Years of education: Number of children: Social History Main Topics Smoking status: Former Smoker Packs/day: 0.00 Years: 0.00 Smokeless status: Never Used Comment: Smoked very little Alcohol use: Yes Comment: occasionally Drug use: No Sexual activity: No Other Topics Concern Service No Blood Transfusions No Caffeine Concern No 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 Sleep Concern Yes Stress Concern Yes Comment:work, going through divorce Weight Concern Yes Special Diet Yes Comment:diabetic Back Care No Exercise No Bike Helmet No Comment:na Seat Belt No Immunization History Administered Date(s) Administered Influenza Seasonal Inj Age 3+ 07/06/2014 Influenza Seasonal Inj Quadrivalent Age 3+ 06/04/2015 Pneumovax 03/30/2016 Tdap (Age 7+) 10/05/2015 ACTIVE PROBLEM LIST Psoriasis Essential Hypertension, Benign Mixed Hyperlipidemia Morbid Obesity Due to Excess Calories (Hcc) Uncontrolled Type 2 Diabetes Mellitus Without Complication, Without Long-Term Current Use of Insulin (Hcc) Diabetic Eye Exam (Hcc) Hidden Penis Eczema REVIEW OF SYSTEMS General: Denies fever, chills, night sweats, or changes in weight. Dermatologic: Denies any new skin conditions, rashes or changing moles., Positive for itchy rash anterior lower rodríguez. Eyes: Denies recent visual changes. ENT: Denies hearing loss or tinnitus, Last dental exam was no regular dental visits Respiratory: Denies any cough, dyspnea, or wheezing., Positive for hemoptysis,, describes as phlem in throat. Cardiovascular: Denies any chest pain with exertion or at rest, palpitations, syncope, or edema. Gastrointestinal: Denies any nausea, vomiting, abdominal pain, heartburn, changes in bowel habit, Denies melena, Denies any rectal bleeding. Genitourinary: Denies Denies dysuria, frequency, urgency, incontinence, erectile dysfunction, and hematuria., Denies problems with urinary stream. Musculoskeletal: Denies any joint swelling, crepitus, joint pain, or loss of range of motion., Denies back pain. Neurologic: Positive for headaches, and dizziness. Psychiatric: Denies any sleeping problems, history of abuse, marital discord. Positive: anxious. Hematologic/Lymphatic/Immunologic: Denies anemia, bruising, bleeding abnormalities, HIV risk factors Endocrine: Denies any heat or cold intolerance, polyuria or polydipsia. OBJECTIVE: PHYSICAL EXAMINATION: BP 137/74 Pulse 76 Resp 16 Ht 180.3 cm (5' 11ANDquot;) Wt (!) 154.2 kg (340 lb) BMI 47.42 kg/m2 GENERAL APPEARANCE Morbidly obese, well appearing, alert, in no acute distress SKIN: Positives: Rash: Left anterior rodríguez, consistent with eczema. HEAD: No significant findings. EYES: PERRLA, EOMI EARS: external ears normal, canals clear, TM's normal NOSE/SINUSES: Nares normal. Septum midline., Positive findings: mucosa erythematous and swollen, Sinus tenderness over right maxillary sinus. OROPHARYNX: Lips, mucosa, and tongue normal, oropharynx normal. and positive findings: 2 front upper teeth, decayed to to gumline NECK: Supple, full range of motion, no lymphadenopathy, normal thyroid and no carotid bruits BACK: Back symmetric, Normal curvature, ROM normal, No CVAT. LUNGS: clear to auscultation HEART: Normal PMI, Regular rate and rhythm, Normal heart sounds, S1 and S2 and No murmurs. ABDOMEN: Soft, Obese, Non-tender, No palpable masses, Normal bowel sounds, No abdominal bruits, No hepatosplenomegaly. and Exam is limited due to body habitus. EXTREMTIES: extremities normal, no deformities, no skin discoloration, no edema, extremity pulses equal and symmetric. Positive: varicose veins. NEURO: Awake, alert and oriented x 3, Cranial nerves II-XII grossly intact, Normal gait, No involuntary motions. GENITALIA: Exam deferred RECTAL: Exam deferred ASSESSMENT/PLAN: 1. Encounter for wellness examination in adult - ICD9: V70.0, ICD10: Z00.00 (primary diagnosis) - Recommended regular aerobic exercise. - Discussed need and benefit for weight loss. BMI 47.42 kg/(m2) - Follow up for annual exam in one year. 2. Morbid obesity due to excess calories (HCC) - ICD9: 278.01, ICD10: E66.01 - Discussed dietary modifications with patient, tracking food intake and increase activity with daily walks. 3. Eczema, unspecified type - ICD9: 692.9, ICD10: L30.9 - discussed skin care of rash - follow up if symptoms persist or worsen. - - To resume triamcinolone cream 7-10 days, no longer than 2 weeks, along with moisturizer lotion. If not improved then recommend Dermatology. Sx suspicious of Psoriasis. 4. Uncontrolled type 2 diabetes mellitus without complication, without long-term current use of insulin (HCC) - ICD9: 250.02, ICD10: E11.65 improved control - Continue current medications - Encouraged regular aerobic exercise and weight loss - Follow up in 6 months, sooner should any other issues arise. - Discussed diabetic education issues of importance of exercise with patient. 5. Anxiety - ICD9: 300.00, ICD10: F41.9 - poor control. Will increase Zoloft to 75 mg at this time 6. MINH (generalized anxiety disorder) - ICD9: 300.02, ICD10: F41.1 - SERTRALINE 50 MG TABLET 7. Cough with hemoptysis - ICD9: 786.39, ICD10: R04.2 - Likely related to sinus infection/congestion. Further details from patient, it is not coming from cough but rather post nasal drainage. - CXR if not improved - XR CHEST 2V FRONTAL/LAT 8. Bacterial sinusitis - ICD9: 473.9, 041.9, ICD10: J32.9, B96.89 - Will begin treatment with Augmentin 875 mg PO BID for 10 days - AMOXICILLIN 875 MG-POTASSIUM CLAVULANATE 125 MG TABLET Breanne Valiente, MSN CAREER MANAGER.GUARD DRIVER Referring Provider: SELF [[id number]] Allergies As of Date: 01/07/2018 Noted Allergy Reaction CODEINE 01/12/2011 14 - Other: See Comments Comments: headache Date Reviewed: 01/07/2018 Reviewed by: Yenny ([facility]) VICKIE Laguna - Fully Assessed Reason for Visit: Physical [83] Primary Visit Diagnosis:Encounter for wellness examination in adult [Z00.00] Other Visit Diagnoses:Morbid obesity due to excess calories ([facility]) [E66.01] Eczema, unspecified type [L30.9] Uncontrolled type 2 diabetes mellitus without complication, without long-term current use of insulin (HCC) [E11.65] Anxiety [F41.9] MINH (generalized anxiety disorder) [F41.1] Cough with hemoptysis [R04.2] Bacterial sinusitis [J32.9, B96.89] Order(s):sertraline (ZOLOFT) 50 mg tabletTake 1.5 tablets by mouth once daily.Disp: 45 tabletRfl: 5 amoxicillin-clavulanic acid (AUGMENTIN) 875-125 mg per tabletTake 1 tablet by mouth every 12 hours.Disp: 20 tabletRfl: 0 XR CHEST 2V FRONTAL/LAT [[id number]] Order #: [id number] FUTURE Prescriptions as of 01/07/2018 Sig: SERTRALINE 50 MG TABLET Take 1.5 tablets by mouth onc* ATORVASTATIN 80 MG TABLET Take 80 mg by mouth once annalisa* LISINOPRIL 20 MG TABLET Take 20 mg by mouth once annalisa* BLOOD SUGAR DIAGNOSTIC STRIPS Test glucose 1 x per day. Dx:* LANCETS 28 GAUGE Test blood sugar(s) one times* AMMONIUM LACTATE 12 % TOPICAL* Apply 1 application to affect* METFORMIN ER 500 MG TABLET,EX* Take two tabs in AM and one t* BLOOD-GLUCOSE METER KIT 1 Each as needed. EZETIMIBE 10 MG TABLET Take 10 mg by mouth once annalisa* TRIAMCINOLONE ACETONIDE 0.5 %* Apply 1 application to affect* GABAPENTIN 100 MG CAPSULE Take 1 capsule by mouth three* COMPOUNDED PRESCRIPTION Knee High Compression Stockin* CPAP Pressure change autoPAP 5-14 * AMOXICILLIN 875 MG-POTASSIUM * Take 1 tablet by mouth every * More... Problem List As Of Date 01/07/2018 Noted Resolved Psoriasis [L40.9] INVALID FOR* Priority: D Essential hypertension, benign [I10] INVALID FOR* Priority: A Mixed hyperlipidemia [E78.2] INVALID FOR* Priority: A Bilateral leg edema [R60.0] INVALID FOR*10/10/2016 Priority: B Well adult exam [Z00.00] INVALID FOR*10/10/2016 Priority: E More... Obstructive sleep apnea syndrome [G47.33] INVALID FOR*10/10/2016 Priority: B More... Morbid obesity due to excess calories (HCC) [E6*INVALID FOR* Priority: B Uncontrolled type 2 diabetes mellitus without c*INVALID FOR* Priority: A Urinary frequency [R35.0] INVALID FOR*10/10/2016 Priority: C Diabetic eye exam (HCC) [Z01.00, E11.9] INVALID FOR* Priority: A More... 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 AMOXICILLIN 875 MG-POTASSIUM CLAVULA* 20 t* 0 01/07/2018 Route: ORAL Sig: Take 1 tablet by mouth every 12 hours. Medications Discontinued During This Encounter sertraline (ZOLOFT) 50 mg tablet 30 t* 3 06/08/2017 01/07/2018 Si/2 a tablet by mouth once a day for 10 days then go to one tablet daily Disc: Reason for discontinue is not on file. Disposition: Return in about 6 months (around 07/09/2018). Follow-up and Disposition History Recorded Encounter Status:Closed by BREANNE AVLIENTE GUARD DRIVER on 01/07/18 COMP METABOLIC PANEL Collected: 12/22/2017 Status: F Source: [place] 9:15 AM [facility] REPOSITORY TYPE CODE TESTS RESULT OUT OF REFERENCE UNITS RANGE LAB TP 6.3-8.0 g/dL Protein, Total 7.8 LAB ALB 3.9-4.9 g/dL Low Albumin 3.8 LAB CA 8.5-10.2 mg/dL Calcium, Total 9.1 LAB TBIL 0.2-1.3 mg/dL Bilirubin, Total 0.9 LAB ALKP 36-108 U/L Alkaline High Phosphatase 116 LAB AST 14-40 U/L AST High 62 LAB GLU 74-99 mg/dL Glucose High 139 Result Comment: The [place] Diabetes [employer] (ADA) provides guidance for cutoff values for fasting glucose and random glucose. The ADA defines fasting as no caloric intake for at least 8 hours. Fas ting plasma glucose results between 100 to 125 mg/dL indicate increased risk for diabetes (prediabetes). Fasting plasma glucose results greater than or equal to 126 mg/dL meet the criteria for diagnosis of diabetes. In the absence of unequivocal hyperglycemia, results should be confirmed by repeat testing. In a patient with classic symptoms of hyperglycemia or hyperglycemic crisis, random plasma glucose results greater than or equal to 200 mg/dL meet the criteria for diagnosis of diabetes. Reference: Standards of Medical Care in Diabetes 2016, [place] [employer]. Diabetes Care. 2016.39(Suppl 1). LAB BUN 9-24 mg/dL BUN 14 LAB CRET 0.73-1.22 mg/dL Low Creatinine 0.62 LAB NA 136-144 mmol/L Sodium 138 LAB K 3.7-5.1 mmol/L Potassium 4.3 LAB CL 97-105 mmol/L Chloride 100 LAB CO2 22-30 mmol/L CO2 28 LAB AGAP 9-18 mmol/L Anion Gap 10 LAB ALT 10-54 U/L ALT High 71 LAB GFRAA eGFR- Amer. >60 LAB GFRNAA . eGFR-All Other Races >60 Result Comment: eGFR (Estimated GFR) Units of measure: mL/min/1.73 meters squared eGFR is derived from the reexpressed MDRD Study equation using the following parameters: serum creatinine, age, gender and race. The creatinine assay has been calibrated to be traceable to IDMS. An eGFR <60 mL/min/1.73m2 for >3 months is consistent with chronic kidney disease. Refer to KDOQI guidelines for clinical interpretation. In patients with unstable renal function, e.g. those with acute kidney injury, the eGFR may not accurately reflect actual GFR. Performed By: #### CMP, LIPB, HBA1C #### [facility] [address] [place], [place] [address] LIPID PANEL, BASIC Collected: 12/22/2017 Status: F Source: [place] 9:15 AM [facility] REPOSITORY TYPE CODE TESTS RESULT OUT OF REFERENCE UNITS RANGE LAB CHOL <200 mg/dL Cholesterol 168 Result Comment: <200 mg/dL, Desirable 200-239 mg/dL, Borderline high >239 mg/dL, High LAB TRIGLY <150 mg/dL Triglyceride 107 Result Comment: <150 mg/dL, Normal 150-199 mg/dL, Borderline high 200-499 mg/dL, High >499 mg/dL, Very high LAB HDL >39 mg/dL HDL-Cholesterol 42 Result Comment: 40-59 mg/dL, Acceptable >59 mg/dL, High: Negative risk factor for coronary heart disease <40 mg/dL, Low: Positive risk factor for coronary heart disease LAB LDL <100 mg/dL LDL-Cholesterol High 105 Result Comment: <100 mg/dL, Optimal 100-129 mg/dL, Near optimal/above optimal 130-159 mg/dL, Borderline high 160-189 mg/dL, High >189 mg/dL, Very high Secondary prevention optimal LDL Cholesterol levels are recommended to be < 70 mg/dL LAB NONHDL <130 mg/dL Non HDL Cholesterol 126 Result Comment: <130 mg/dL, Optimal 130-159 mg/dL, Near optimal/above optimal 160-189 mg/dL, Borderline high 190-219 mg/dL, High >219 mg/dL, Very high Secondary prevention optimal non HDL Cholesterol levels are recommended to be < 100 mg/dL LAB FT hrs Fasting Time 14 LAB VLDL <30 mg/dL VLDL Cholesterol 21 LAB TCHDL <5.10 TC:HDL Ratio 4.00 LAB LDLHDL <2.54 LDL:HDL Ratio 2.50 Result Comment: Reference: 1. National Cholesterol Education Program ATP III Guideline At-A-Glance Quick Desk Reference: National Heart, Lung, and Blood [place]. National Institutes of Health. 2001: NIH Publication No. 01-3305. 2. An International Atherosclerosis Society position paper: global recommendations for the management of dyslipidemia: executive summary, Atherosclerosis. 2014: 232(2):410-413. Performed By: #### CMP, LIPB, HBA1C #### [facility] [address] [address] HEMOGLOBIN A1C Collected: 12/22/2017 Status: F Source: [place] 9:15 AM [facility] REPOSITORY TYPE CODE TESTS RESULT OUT OF REFERENCE UNITS RANGE LAB HGBA1C 4.3-5.6 % High Hemoglobin A1c 6.7 LAB HBA0 mg/dL Est. Average Glucose 146 Result Comment: eAG: (Estimated average glucose) is a calculated value from HgbA1c and is solar sales representative and assessor of the average blood glucose level in the last 2-3 month period. Performed By: #### CMP, LIPB, HBA1C #### [facility] [address] [place], [place] [address] ALBUMIN/CREAT RATIO Collected: 12/22/2017 Status: F Source: [place] 9:15 AM [facility] REPOSITORY TYPE CODE TESTS RESULT OUT OF REFERENCE UNITS RANGE LAB UCRR 20-300 mg/dL 106.7 Creatinine,Ur ine,Ran LAB UALBR 0.0-23.0 mg/L <12.0 Albumin Urine Random LAB UALBCR 0-30 mg/g Not Albumin/Creat calculated Ratio Performed By: #### UACR #### [facility] [address] [place], [place] [address] URINALYSIS WITH Collected: 12/22/2017 Status: F Source: [facility] 9:15 AM [facility] REPOSITORY TYPE CODE TESTS RESULT OUT OF RANGE REFERENCE UNITS LAB UCOL Yellow Color Yellow LAB [facility] Clear Clarity Clear LAB UGLUC Negative mg/dL Glucose, Urine Negative LAB UBIL Negative Bilirubin, Urine Negative LAB UKET Negative Ketones, Urine Negative LAB USPG 1.005-1.030 Specific Amanda, Ur 1.020 LAB UHGB Negative Hemoglobin/Blood, Negative Ur LAB UPH 4.5-8.0 pH 5.0 LAB UPROT Negative mg/dL Protein, Urine Negative LAB UUROB Normal Urobilinogen Normal LAB UNITR Negative Nitrites Negative LAB ULKEST Negative Leukest Abnormal Trace Alert LAB UCOM Comments SEE COMMENT Result Comment: N/A LAB UMCOM Urine SEE Pedro Comment COMMENT Result Comment: N/A LAB UWBC 0-5 /HPF Abnormal WBC Alert 6-10 LAB URBC 0-3 /HPF RBC 0-3 LAB UEPI /HPF Epithelial Cells SEE COMMENT Result Comment: Few Squamous Epithelial Cells Performed By: #### UAWMIC #### [facility] [address] [place], [place] [address] CNPTOUTREACH Observed: 12/18/2017 Status: COMPLETED Source: [place] 12:00 [facility] REPOSITORY Patient Outreach (FAMPST) JESSYEDD SILVER ([id number]) 1975 M Date Time Provider Department 12/18/17 TOMAS DELGADO During your visit today, we recorded the following information about you: Allergies As of Date: 12/18/2017 Noted Allergy Reaction CODEINE 01/12/2011 14 - Other: See Comments Comments: headache Date Reviewed: 12/11/2017 Reviewed by: Stefany Parikh RN - Fully Assessed Primary Visit Diagnosis:Uncontrolled type 2 diabetes mellitus without complication, without long-term current use of insulin (HCC) [E11.65] Other Visit Diagnoses:Medication management [Z79.899] Mixed hyperlipidemia [E78.2] Essential hypertension, benign [I10] Order(s):ALBUMIN/CREAT RATIO RND UR [SQUACR] Order #: [id number] FUTURE URINALYSIS WITH MICROSCOPIC [SQUAWMIC] Order #: [id number] FUTURE Prescriptions as of 12/18/2017 Sig: BLOOD SUGAR DIAGNOSTIC STRIPS Test glucose 1 x per day. Dx:* LANCETS 28 GAUGE Test blood sugar(s) one times* BLOOD-GLUCOSE METER KIT 1 Each as needed. X ATORVASTATIN 80 MG TABLET Take 80 mg by mouth once annalisa* X LISINOPRIL 20 MG TABLET Take 20 mg by mouth once annalisa* X AMMONIUM LACTATE 12 % TOPICAL* Apply 1 application to affect* X METFORMIN ER 500 MG TABLET,EX* Take two tabs in AM and one t* X EZETIMIBE 10 MG TABLET Take 10 mg by mouth once annalisa* X TRIAMCINOLONE ACETONIDE 0.5 %* Apply 1 application to affect* X SERTRALINE 50 MG TABLET 1/2 a tablet by mouth once a * X GABAPENTIN 100 MG CAPSULE Take 1 capsule by mouth three* COMPOUNDED PRESCRIPTION Knee High Compression Stockin* X CPAP Pressure change autoPAP 5-14 * More... Problem List As Of Date 12/18/2017 Noted Resolved Psoriasis [L40.9] INVALID FOR* Priority: D Essential hypertension, benign [I10] INVALID FOR* Priority: A Mixed hyperlipidemia [E78.2] INVALID FOR* Priority: A Bilateral leg edema [R60.0] INVALID FOR*10/10/2016 Priority: B Well adult exam [Z00.00] INVALID FOR*10/10/2016 Priority: E More... Obstructive sleep apnea syndrome [G47.33] INVALID FOR*10/10/2016 Priority: B More... Morbid obesity due to excess calories (HCC) [E6*INVALID FOR* Priority: B Uncontrolled type 2 diabetes mellitus without c*INVALID FOR* Priority: A Urinary frequency [R35.0] INVALID FOR*10/10/2016 Priority: C Diabetic eye exam (HCC) [Z01.00, E11.9] INVALID FOR* Priority: A More... 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 Master Trimble DPM 12/11/2017 9:36 AM Signed Subjective: Patient presents to clinic c/o painful toenails. They state that the nails are especially painful with shoe gear and pressure. Patient states that nails 1-5 b/l are painful. Patient admits to being diabetic and states that their blood sugar was 150 mg/dL two days ago. Complains of right ankle pain and walking on right side of foot. No other pedal complaints at this time. Patient states no change in medications or medical history since last visit. Objective: Patient presents to clinic ambulating in diabetic shoes Vasc: DP and PT pulses are palpable bilateral. CFT is less than 5 seconds bilateral. Skin temperature is warm to cool proximal to distal bilateral. There is minimal edema or varicosities noted. Neuro: Protective sensation is intact to the foot and toes when tested with the 5.07 SWM bilateral. Vibratory sensation is decreased at the hallux IPJ bilateral. The hallux is downgoing bilateral. Derm: Nails 1-5 b/l are painful, discolored-yellow, thick, crumbly, dystrophic and with subungal debris. Skin is of normal turgor, texture and hair growth is present bilateral. There are no hyperkeratosis, ulcerations, scars, verruca or other lesions noted. Ortho: Muscle strength is 5/5 for all pedal groups tested. Ankle joint DF is decreased with the knee extended with no pain or crepitus noted. 1st MPJ ROM is full bilateral. High arch noted right foot Assessment: (B35.1) Onychomycosis (primary encounter diagnosis) (M79.675) Pain in toe of left foot (M79.674) Pain in toe of right foot (E11.42) Diabetic polyneuropathy associated with type 2 diabetes mellitus (HCC) (Q66.7) Pes cavus of right foot Plan: Patient was seen and evaluated. Nails 1-5 bilateral were debrided in length and thickness. Discussed high arch right foot. He states this is causing ankle pain. Recommend afo. xrays ordered of right foot and ankle Patient was instructed on the continued importance of diabetic foot care along with proper diet and keeping their blood sugar under control to prevent complications. Patient is to RTC in 3-4 months. MIKE Daily RN 12/11/2017 9:32 AM Signed Schedule with [facility] AFO [place] [address] [facility], [facility] [address] PH: [phone] Referring Provider: SELF [200] Allergies As of Date: 12/11/2017 Noted Allergy Reaction CODEINE 01/12/2011 14 - Other: See Comments Comments: headache Date Reviewed: 12/11/2017 Reviewed by: Stefany Parikh RN - Fully Assessed Reason for Visit: Diabetic Foot Care [916] Primary Visit Diagnosis:Onychomycosis [B35.1] Other Visit Diagnoses:Pain in toe of left foot [M79.675] Pain in toe of right foot [M79.674] Diabetic polyneuropathy associated with type 2 diabetes mellitus (HCC) [E11.42] Pes cavus of right foot [Q66.7] Order(s):CONSULT TO ORTHOTIC/PROSTHETIC [19991020] Order #: [id number]: 1 XR FOOT GENERAL 3V AP/LAT/OBL RT [[id number]] Order #: [id number] FUTURE XR ANKLE GENERAL 3V AP/LAT/OBL RT [[id number]] Order #: [id number] FUTURE Prescriptions as of 12/11/2017 Sig: ATORVASTATIN 80 MG TABLET Take 80 mg by mouth once annalisa* LISINOPRIL 20 MG TABLET Take 20 mg by mouth once annalisa* BLOOD SUGAR DIAGNOSTIC STRIPS Test glucose 1 x per day. Dx:* LANCETS 28 GAUGE Test blood sugar(s) one times* AMMONIUM LACTATE 12 % TOPICAL* Apply 1 application to affect* METFORMIN ER 500 MG TABLET,EX* Take two tabs in AM and one t* BLOOD-GLUCOSE METER KIT 1 Each as needed. EZETIMIBE 10 MG TABLET Take 10 mg by mouth once annalisa* TRIAMCINOLONE ACETONIDE 0.5 %* Apply 1 application to affect* SERTRALINE 50 MG TABLET 1/2 a tablet by mouth once a * GABAPENTIN 100 MG CAPSULE Take 1 capsule by mouth three* COMPOUNDED PRESCRIPTION Knee High Compression Stockin* CPAP Pressure change autoPAP 5-14 * More... Problem List As Of Date 12/11/2017 Noted Resolved Psoriasis [L40.9] INVALID FOR* Priority: D Essential hypertension, benign [I10] INVALID FOR* Priority: A Mixed hyperlipidemia [E78.2] INVALID FOR* Priority: A Bilateral leg edema [R60.0] INVALID FOR*10/10/2016 Priority: B Well adult exam [Z00.00] INVALID FOR*10/10/2016 Priority: E More... Obstructive sleep apnea syndrome [G47.33] INVALID FOR*10/10/2016 Priority: B More... Morbid obesity due to excess calories (HCC) [E6*INVALID FOR* Priority: B Uncontrolled type 2 diabetes mellitus without c*INVALID FOR* Priority: A Urinary frequency [R35.0] INVALID FOR*10/10/2016 Priority: C Diabetic eye exam (HCC) [E11.9, Z01.00] INVALID FOR* Priority: A More... 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 Follow-up and Disposition History Recorded Encounter Status:Closed by MASTER TRIMBLE DPM on 12/11/17 PROGRESS Observed: 12/11/2017 Status: COMPLETED Source: [place] 9:23 AM [facility] REPOSITORY HNO ID: [id number] Author: Master Trimble Service: (none) Author Type: Physician Type: Progress Notes Filed: 12/11/2017 9:36 AM Note Text: Subjective: Patient presents to clinic c/o painful toenails. They state that the nails are especially painful with shoe gear and pressure. Patient states that nails 1-5 b/l are painful. Patient admits to being diabetic and states that their blood sugar was 150 mg/dL two days ago. Complains of right ankle pain and walking on right side of foot. No other pedal complaints at this time. Patient states no change in medications or medical history since last visit. Objective: Patient presents to clinic ambulating in diabetic shoes Vasc: DP and PT pulses are palpable bilateral. CFT is less than 5 seconds bilateral. Skin temperature is warm to cool proximal to distal bilateral. There is minimal edema or varicosities noted. Neuro: Protective sensation is intact to the foot and toes when tested with the 5.07 SWM bilateral. Vibratory sensation is decreased at the hallux IPJ bilateral. The hallux is downgoing bilateral. Derm: Nails 1-5 b/l are painful, discolored-yellow, thick, crumbly, dystrophic and with subungal debris. Skin is of normal turgor, texture and hair growth is present bilateral. There are no hyperkeratosis, ulcerations, scars, verruca or other lesions noted. Ortho: Muscle strength is 5/5 for all pedal groups tested. Ankle joint DF is decreased with the knee extended with no pain or crepitus noted. 1st MPJ ROM is full bilateral. High arch noted right foot Assessment: (B35.1) Onychomycosis (primary encounter diagnosis) (M79.675) Pain in toe of left foot (M79.674) Pain in toe of right foot (E11.42) Diabetic polyneuropathy associated with type 2 diabetes mellitus (HCC) (Q66.7) Pes cavus of right foot Plan: Patient was seen and evaluated. Nails 1-5 bilateral were debrided in length and thickness. Discussed high arch right foot. He states this is causing ankle pain. Recommend afo. xrays ordered of right foot and ankle Patient was instructed on the continued importance of diabetic foot care along with proper diet and keeping their blood sugar under control to prevent complications. Patient is to RTC in 3-4 months. Master Trimble DPM PROGRESS Observed: 12/11/2017 Status: COMPLETED Source: [place] 9:19 AM [facility] REPOSITORY HNO ID: [id number] Author: Stefany Parikh RN Service: (none) Author Type: (none) Type: Progress Notes Filed: 12/11/2017 9:36 AM Note Text: Pt reports that his last blood sugar was 150 two days ago. ALLERGIES ALLERGIES DATE TYPE / CODE NAME / CODE REACTION SEVERITY SOURCE 08/30/2018 Drug codeine/Y55746 Other Unknown [facility] Allergy/4160 1550(RXNORM) [facility] [address](SNOMED Repository CT) 01/12/2011 DRUG CODEINE OTHER: [facility] [address](SNOMED Repository CT) 01/12/2011 DRUG CODEINE OTHER: SEE C [facility]5 [facility] [address](SNOMED Repository CT) ENCOUNTERS ENCOUNTERS ADMIT/DISCHARGE ACCOUNT ADMITTING ENCOUNTER LOCATION SOURCE NUMBER CLASS 08/30/2018/08/30/20 [id number] Ambulatory BMSBuilding:B [place] 18 MS.PMW [facility] Repository 08/27/2018/08/28/20 [id number] Ambulatory [address] Repository 08/26/2018/08/26/20 [id number] Ambulatory [address] Repository 08/26/2018/08/30/20 [id number] Ambulatory [address] Repository 08/17/2018/08/21/20 [id number] Jomarysol, Aurelio Inpatient [place] [address] [place] [address] Hospital ing:PCURoom: Repository [id number]: 1 08/17/2018 [id number] Jopperi, Aurelio Ambulatory BMSBuilding:B [place] MS.[facility] Repository 08/17/2018 [id number] Jopperi, Aurelio Ambulatory BMSBuilding:B [place] MS.[facility] Repository 08/17/2018 [id number] Joshilaeri, Aurelio Ambulatory BMSBuilding:B [place] [facility] 08/17/2018 [id number] Jopperi, Aurelio Amb[facility] BMS[facility] [place] [facility] 08/17/2018 [id number] Joshilaeri, Aurelio Ambulatory BMSBuilding:B [place] MS.[facility] Repository 08/17/2018 [id number] Joshilaeri, Aurelio Ambulatory BMSBuilding:B [place] [facility] 08/17/2018 [id number] Joshilaeri, Aurelio Ambulatory BMSBuilding:B [place] MS..[facility] Repository 08/17/2018 [id number] Joshilaeri, Aurelio Ambulatory BMSBuilding:B [place] MS.[facility] Repository 08/17/2018 [id number] Joshilaeri, Aurelio Ambulatory BMSBuilding:B [place] MS.CF.[facility] Repository 08/17/2018 [id number] Joshilaeri, Aurelio Ambulatory BMSBuilding:B [place] [facility] 08/17/2018 [id number] Jopperi, Aurelio Ambulatory BMSBuilding:B [place] [facility] 08/17/2018 [id number] Jopperi, Aurelio Ambulatory BMSBuilding:B [place] [facility] 08/17/2018 [id number] Joshilaeri, Aurelio Ambulatory BMSBuilding:B [place] MS.WIP [facility] Repository 08/14/2018/08/14/20 [id number] ADORE, Ambulatory Sam 18 [facility] Other [place] Repository 08/07/2018/08/07/20 [id number] Ambulatory Sam 18 [facility] [place] Repository 08/02/2018/08/02/20 [id number] Ambulatory Sam 18 [facility] Other [place] Repository 08/02/2018/08/02/20 [id number] Ambulatory [place] [address] [facility] [place] Repository 08/02/2018/08/02/20 [id number] Ambulatory Sam 18 [facility] Other [place] Repository 07/30/2018/07/31/20 [id number] Ambulatory Sam 18 [facility] Main [place] Repository 07/25/2018/07/31/20 [id number] Ambulatory Sam 18 [facility] [place] Repository 07/24/2018/07/25/20 [id number] Ambulatory [address] Main [place] Repository 07/16/2018/07/16/20 [id number] Ambulatory [address] Main [place] Repository 07/15/2018/07/16/20 [id number] Ambulatory Sam 18 [facility] [place] Repository 06/18/2018/06/19/20 [id number] Ambulatory Sam 18 [facility] [place] Repository 06/10/2018/06/10/20 [id number] Ambulatory Sam 18 [facility] [place] Repository 01/07/2018/01/09/20 [id number] Ambulatory Sam 18 [facility] [place] Repository 12/22/2017 [id number] Ambulatory [facility] Main [place] Repository 12/11/2017/12/13/19 [id number] Ambulatory [place] [address] [facility] Main [place] Repository PAYERS PAYERS ENCOUNTER GUARANTOR PAYER SUBSCRIBER SOURCE 08/30/2018 EDD S Primary EDD [place] [id number] Insurance:ANTHEMPolic HOFSTETTERDOB: Community SECOND y [place]: [id number] [id number] Repository [address]Hqf: (330) Date:3003-34-80ZU [phone] () [place], [place] [address]XZ: 08/30/2018 Secondary NOT GIVENUNK [place] Insurance:SELF PAY [facility] Number: Effective Repository Date:2018-08-29 08/17/2018 EDD [place] Primary EDD [id number] Insurance:ANTHEMPolic HOFSTETTERDOB: Community 2ND STC/O LETTY y Number: [id number] Hospital of Southern [facility] MexicoDAVIDSAINT [facility] [id number] Repository [place], [place] [address]Alc: Date:6336-24-25RU [address]XXGCZIG, [place] () [address]PF: 08/17/2018 Secondary NOT GIVENUNK [place] Insurance:SELF PAY [facility] Number: Effective Repository Date:2018-08-17 08/17/2018 EDD [place] Primary EDD [id number] Insurance:ANTHEMPolic HOFSTETTERDOB: Community 2ND STC/O LETTY y Number: [id number] [facility] CenterMICHAELCAP[facility] [id number] Repository [place], [place] [address]Nvr: Date:5279-88-23QY [address]YKFWUAC, [place] () [address]YB: 08/17/2018 Secondary NOT GIVENUNK [place] Insurance:SELF PAY [facility] Number: Effective Repository Date:2018-08-17 08/17/2018 EDD [place] Primary EDD [id number] Insurance:ANTHEMPolic HOFSTETTERDOB: Community 2ND STC/O LETTY y Number: [id number] Hospital of Southern New MexicoDAVIDSAINT [facility]NA[facility] [id number] Repository [place], [place] [address]Pxi: Date:8836-35-59IB [address] () [address]IK: 08/17/2018 Secondary NOT GIVENUNK [place] Insurance:SELF PAY [facility] Number: Effective Repository Date:2018-08-17 08/17/2018 EDD [place] Primary EDD [id number] Insurance:ANTHEMPolic HOFSTETTERDOB: Community 2ND STC/O LETTY y Number: [id number] Hospital CenterLI [id number] Repository , [place] [address]Xws: Date:8742-61-03KP [address]LWEGFEX, [place] () [address]WS: 08/17/2018 Secondary NOT GIVENUNK [place] Insurance:SELF PAY [facility] Number: Effective Repository Date:2018-08-17 08/17/2018 EDD [place] Primary EDD [id number] Insurance:ANTHEMPolic HOFSTETTERDOB: Community 2ND STC/O LETTY y Number: [id number] Hospital of Southern [facility] MexicoDAVIDSAINT [facility]NA[facility] [id number] Repository , [place] [address]Zzo: Date:3462-39-81FW [address]YJLLJJP, [place] () [address]BO: 08/17/2018 Secondary NOT GIVENUNK [place] Insurance:SELF PAY [facility] Number: Effective Repository Date:2018-08-17 08/17/2018 EDD S Primary EDD [id number] Insurance:ANTHEMPolic HOFSTETTERDOB: Community 2ND STC/O LETTY y Number: [id number] Hospital of Southern New MexicoDAVIDSAINT BARNABAS [facility]ENTER [id number] Repository , [place] [address]Rtb: Date:4576-79-38DY [address]PKVMUAHHENNY [address] () [address]EW: 08/17/2018 Secondary NOT GIVENUNK [place] Insurance:SELF PAY [facility] Number: Effective Repository Date:2018-08-17 08/17/2018 EDD S Primary EDD [place] [id number] Insurance:ANTHEMPolic HOFSTETTERDOB: Community 2ND STC/O LETTY y Number: [id number] Hospital of Southern New MexicoMALATHI [id number] Repository , [place] [address]Bvq: Date:7444-58-13GD [address]ATVHAPUHENNY LOCK () [address]HW: 08/17/2018 Secondary NOT GIVENUNK [place] Insurance:SELF PAY [facility] Number: Effective Repository Date:2018-08-17 08/17/2018 EDD [place] Primary EDD [id number] Insurance:ANTHEMPolic HOFSTETTERDOB: Community 2ND STC/O LETTY y Number: [id number] Hospital JESSYTTTRAVISSAINT BARNABAS MEDICAL CENTER [id number] Repository , [place] [address]Npz: Date:4142-19-32ZR [address] HEN[address] [place] () [address]OT: 08/17/2018 Secondary NOT GIVENUNK [place] Insurance:SELF PAY [facility] Number: Effective Repository Date:2018-08-17 08/17/2018 EDD [place] Primary EDD [id number] Insurance:ANTHEMPolic HOFSTETTERDOB: Community 2ND STC/O LETTY y Number: [id number] Hospital of Southern New MexicoELIANATTTRAVISSAINT BARNABAS MEDICAL CENTER [id number] Repository , [place] [address]Grr: Date:6283-15-20ZK [address] HEN[address] [place] () [address]RH: 08/17/2018 Secondary NOT GIVENUNK [place] Insurance:SELF PAY [facility] Number: Effective Repository Date:2018-08-17 08/17/2018 EDD [place] Primary EDD [id number] Insurance:ANTHEMPolic HOFSTETTERDOB: Community 2ND STC/O LETTY y Number: [id number] Hospital JEANNATETTERSLASHAUN [id number] Repository , [place] [address]Kzz: Date:5546-31-14YD [address]JZAWRKAHENNY LOCK () [address]ME: 08/17/2018 Secondary NOT GIVENUNK [place] Insurance:SELF PAY [facility] Number: Effective Repository Date:2018-08-17 08/17/2018 EDD [place] Primary EDD [id number] Insurance:ANTHEMPolic HOFSTETTERDOB: Community 2ND STC/O LETTY y Number: [id number] Hospital KYE [id number] Repository , [place] [address]Tcp: Date:9230-65-14IZ [address]DSUTHAE, [place] () [address]BK: 08/17/2018 Secondary NOT GIVENUNK [place] Insurance:SELF PAY [facility] Number: Effective Repository Date:2018-08-17 08/17/2018 EDD [place] Primary EDD [id number] Insurance:ANTHEMPolic HOFSTETTERDOB: Community 2ND STC/O LETTY y Number: [id number] Hospital of Southern New MexicoMALATHI [id number] Repository , [place] [address]Rqz: Date:1566-17-63CX [address]MEXDTAH, [place] () [address]XC: 08/17/2018 Secondary NOT GIVENUNK [place] Insurance:SELF PAY [facility] Number: Effective Repository Date:2018-08-17 08/17/2018 EDD [place] Primary EDD [id number] Insurance:ANTHEMPolic HOFSTETTERDOB: Community 2ND STC/O LETTY y Number: [id number] Hospital JESSYTTARIS [id number] Repository , [place] [address]Zzm: Date:8686-49-02LX [address]DZBXGUW, [place] () [address]TG: 08/17/2018 Secondary NOT GIVENUNK [place] Insurance:SELF PAY [facility] Number: Effective Repository Date:2018-08-17 08/17/2018 EDD [place] Primary EDD [id number] Insurance:ANTHEMPolic HOFSTETTERDOB: Community 2ND STC/O LETTY y Number: [id number] Hospital KYE [id number] Repository [place], [place] [address]Xgh: Date:6979-20-15HW [address]IHTJHIZ, [place] () [address]NM: 08/17/2018 Secondary NOT GIVENUNK [place] Insurance:SELF PAY Community [facility] Number: Effective Repository Date:2018-08-17
== END 2018-08-21 12:50 | disposition home or self-care (01) | DRG 208 ==
LOC: ED 15:43 → ICU 16:19 → PCU 08-20 16:56
PROVIDERS: Hospitalist; Internal Medicine; Internal Medicine Cardiovascular Disease; Internal Medicine Critical Care Medicine; Emergency Provider Emergency Medicine; Family Provider Family Medicine; PCP Family Medicine; Visit Provider Internal Medicine
DX: J96.01 Acute respiratory failure with hypoxia (principal); I21.A1 Myocardial infarction type 2; J12.9 Viral pneumonia, unspecified; I16.1 Hypertensive emergency; Z68.41 Body mass index [BMI] 40.0-44.9, adult; I50.30 Unspecified diastolic (congestive) heart failure; E78.5 Hyperlipidemia, unspecified; E11.9 Type 2 diabetes mellitus without complications; I11.0 Hypertensive heart disease with heart failure; E66.01 Morbid (severe) obesity due to excess calories; Z79.84 Long term (current) use of oral hypoglycemic drugs; Z87.891 Personal history of nicotine dependence; Z79.899 Other long term (current) drug therapy; Z98.890 Other specified postprocedural states
CPT/HCPCS: 31500; 31720; 36415; 36600; 51702; 71045; 71275; 74018; 80048; 80061; 80076; 81001; 82803; 82962; 83036; 83605; 83735; 83880; 84443; 84484; 85025; 85027; 85610; 85730; 87040; 87070; 87086; 87205; 87449; 87633; 87641; 93005; 93306; 93454; 94002; 94003; 94640; 94660; 94667; 94668; 95831; 97162; 97165; 97530; 97802; 99152; 99153; 99251; 99285; J7030; J7050; Q9957; Q9967; A4216; C1769; C1894; C8929; G0463; J0330; J1940; J3490

== ENCOUNTER 2019-11-11 16:37 | Emergency (ER) | payer OTHER, BC, SELFPAY ==
[2018-08-30 12:49] VITALS: BMI 43.2
[2019-11-11 16:38] VITALS: BP 165/74; PULSE 68; PULSE 70; RESP 14; RESP 18; TEMP 36.8; O2SAT 98; O2SAT 99; BMI 44.4
--- NOTE | 2019-11-11 17:02 | RAD_ITS ---
STUDY: X-RAY - LEFT WRIST REASON FOR EXAM: Male, 44 years old. LEFT WRIST PAIN AFTER FALL TECHNIQUE: 3 view(s) of the wrist were obtained. COMPARISON: None. FINDINGS: Acute comminuted fracture of the distal radius with volar angulation with extension into the radiocarpal joint consistent with a Valiente fracture. Associated avulsion of the ulnar styloid. Normal radiocarpal articulation. Normal distal radioulnar articulation. Normal carpal bones. Normal carpal articulations. Normal carpometacarpal articulation of the thumb. Normal second through fifth carpometacarpal articulations. Normal visualized metacarpal bones. The soft tissue structures are unremarkable. RAD/Wrist min 3 Views IMPRESSION: Acute comminuted Valiente fracture with involvement of radiocarpal joint and associated ulnar styloid avulsion fracture. Electronically Signed: Ace Gutiérrez MD at 17:42 EST Tel , Service support ,
--- NOTE | 2019-11-11 17:03 | ED.DCSUM_ITS ---
History of Present Illness Chief Complaint: Fall Informant: Patient Onset: Today Current Severity: Moderate Maximum Severity: Moderate Narrative: Patient presents via EMS after trip and fall at work. He states his feet got caught up underneath him and he fell forward. He is complaining of pain to the left wrist and the right hand. He is right-hand dominant. He did strike his head. He does not believe he lost consciousness. He has no vision change, nausea, or vomiting. He is not on anticoagulants. - Past Medical History (1) Benign essential HTN Status: Chronic (2) Borderline diabetes Status: Chronic (3) Hyperlipidemia Status: Chronic (4) Obesity Status: Chronic Past Medical History - Allergies and Home Meds Allergies/Adverse Reactions: Allergies codeine Adverse Reaction (Verified 11/11/19 16:37) Other Prior records reviewed: Yes Surgical History: herniorrhaphy, - - He has had a fracture of the distal RLE in the past and has rods and screws. Smoking Status: Never smoker - Family History Maternal Family History: Reports: High Cholesterol, Hypertension Paternal Family History: Reports: High Cholesterol, Hypertension Review of Systems General: Denies: Chills, Fever Eyes: Denies: Visual changes - bilaterally ENT: Denies: Bilateral ear pain Cardiovascular: Denies: Chest pain Respiratory: Denies: Dyspnea, Cough Gastrointestinal: Denies: Abdominal pain, Nausea, Vomiting, Diarrhea Musculoskeletal: Reports: Extremity Pain Skin: Reports: Abrasions, Wounds Neurological: Reports: Headache. Denies: Weakness, Parasthesia Hematologic: Denies: Easy bruising, Easy bleeding Allergy: Denies: Uticaria Physical Exam Vital Signs/Narrative: Vital Signs Temp Pulse Resp BP Pulse Ox 11/11/19 16:38 98.3 F 70 18 165/74 H 99 Inital Vital Signs reviewed: Yes General: Well nourished, Well developed Head: Normocephalic ENT: Moist mucous membranes Neck: Supple Cardiovascular: Regular rate, Regular rhythm Respiratory: No distress, CTA bilaterally Abdomen: Soft, Nontender Extremities: - - Tenderness outpatient over the left wrist, worse at the distal radius. Strong distal pulse. Good cap refill. No tenderness of the elbow or shoulder. Right upper extremity examination reveals tenderness along the base of the right thumb. No obvious deformity. Good cap refill and sensation. Skin: - - Small hematoma noted over the mid forehead with superficial abrasions. Neurological: Alert, Oriented x3, Normal Strength, Normal Sensation Psychological: Normal affect Diagnostic/Tx/Re-eval Impressions Wrist X-Ray 11/11/19 17:02 IMPRESSION: Acute comminuted Valiente fracture with involvement of radiocarpal joint and associated ulnar styloid avulsion fracture. Electronically Signed: Ace Gutiérrez MD at 17:42 EST Tel , Service support , Brain CT 11/11/19 17:03 IMPRESSION: Small left frontal scalp hematoma. No intracranial hemorrhage Electronically Signed: Ace Gutiérrez MD at 17:36 EST Tel , Service support , Hand X-Ray 11/11/19 17:17 IMPRESSION: Normal x-ray examination of the hand. Electronically Signed: Ace Gutiérrez MD at 17:43 EST Tel , Service support , 11/11/19 17:02 Wrist min 3 Views [RAD] Stat 11/11/19 17:03 CT Head [Brain/Head without Contrast] [CT] Stat 11/11/19 17:17 Hand Min 3 Views [RAD] Stat - Medical Decision Making Patient was initially given dose of Tylenol for pain. He will be given a dose of oxycodone prior to discharge. X-ray results are discussed with patient and f amily at bedside. Left wrist is placed in an AP Ortho-Glass splint. Following splint application patient has good cap refill distally and can wiggle fingers. He will follow-up with Dr. Loera, on-call for orthopedics. Procedures - Upper Extremity Splints Upper Extremity Splint: Orthoglass Splint Fabrication: Fabricated Location: Left ED Disposition - Plan for ED Patient: Disposition: Home or Assisted Living Diagnosis: Closed head injury, Wrist fracture, left Instructions: FRACTURE, Wrist [General], HEAD INJURY, No Wake-Up (Adult) Prescriptions: Hydrocodone Bitart/Apap 5-325 [[place] 5MG-325MG] 1 tablet PO Q6H PRN PRN 3 Days #10 tablet PRN Reason: Pain Transmission Status: Re[facility] [place] - [address] Referrals: Kyree Loera DO [STAFF PHYSICIAN] - As soon as possible
--- NOTE | 2019-11-11 17:03 | CT_ITS ---
STUDY: CT BRAIN WITHOUT CONTRAST REASON FOR EXAM: Male, 44 years old. FALL AND HIT HEAD AT WORK RADIATION DOSAGE (If Supplied By Facility): CTDIvol = ( 44.99 ) mGy, DLP = ( 796.11 ) mGycm TECHNIQUE: Transaxial CT imaging of the brain was performed without administration of intravenous contrast material. Individualized dose optimization techniques were used for this CT. COMPARISON: No relevant priors. FINDINGS: Small left frontal scalp hematoma. Normal calvarium. Normal size ventricles and extra-axial spaces for the patient''s age. Normal white matter tracts of the cerebral hemispheres. Normal basal ganglia and thalami. Normal brainstem. Normal cerebellum. There is no intracranial hemorrhage. There are no findings of an acute ischemic infarction. Normal visualized paranasal sinuses. CT/Brain/Head without Contrast IMPRESSION: Small left frontal scalp hematoma. No intracranial hemorrhage Electronically Signed: Ace Gutiérrez MD at 17:36 EST Tel , Service support ,
[2019-11-11] MEDS: Acetaminophen 500 MG Tablet 1000 MG PO (17:10)
--- NOTE | 2019-11-11 17:17 | RAD_ITS ---
STUDY: X-RAY - RIGHT HAND REASON FOR EXAM: Male, 44 years old. RIGHT HAND PAIN AFTER FALL TECHNIQUE: 3 view(s) of the hand. COMPARISON: None. FINDINGS: Normal radiocarpal articulation. Normal distal radioulnar joint. Normal visualized carpal bones. Normal carpal articulations Normal carpometacarpal articulation of the thumb. Normal second through fifth carpometacarpal joints. Normal metacarpi. Normal metacarpophalangeal joint of the thumb. Normal interphalangeal joint of the thumb. Normal proximal and distal phalanges of the thumb. Normal metacarpophalangeal joints of the second through fifth fingers. Normal proximal and distal interphalangeal joints of the second through fifth fingers. Normal phalanges of the second through fifth fingers. The soft tissue structures are unremarkable. RAD/Hand Min 3 Views IMPRESSION: Normal x-ray examination of the hand. Electronically Signed: Ace Gutiérrez MD at 17:43 EST Tel , Service support ,
[2019-11-11 18:54] VITALS: BP 173/67; PULSE 68; RESP 17
[2019-11-11] MEDS: oxyCODONE 5 MG Tablet PO (19:02)
== END 2019-11-11 19:03 | disposition home or self-care (01) ==
PROVIDERS: Emergency Provider Emergency Medicine; PCP Pediatrics
DX: S09.90XA Unspecified injury of head, initial encounter (principal); S62.102A Fracture of unspecified carpal bone, left wrist, initial encounter for closed fracture; E66.9 Obesity, unspecified; R73.03 Prediabetes; W01.0XXA Fall on same level from slipping, tripping and stumbling without subsequent striking against object, initial encounter; Z79.899 Other long term (current) drug therapy; Z79.84 Long term (current) use of oral hypoglycemic drugs; I10 Essential (primary) hypertension; E78.5 Hyperlipidemia, unspecified
CPT/HCPCS: 29125; 70450; 73110; 73130; 99285

== ENCOUNTER → 2019-11-12 17:09 | Outpatient (CLI) | payer OTHER, SELFPAY ==
[2019-11-12 11:04] VITALS: BMI 44.4
--- NOTE | 2019-11-12 11:20 | RAD_ITS ---
STUDY: X-RAY - RIGHT WRIST REASON FOR EXAM: Male, 44 years old. FALL YESTERDAY, PAIN RT WRIST TECHNIQUE: 4 view(s) of the wrist were obtained. COMPARISON: None. FINDINGS: Normal visualized distal radius and ulna. Normal radiocarpal articulation. Normal distal radioulnar articulation. Normal carpal bones. Normal carpal articulations. Normal carpometacarpal articulation of the thumb. Normal second through fifth carpometacarpal articulations. Normal visualized metacarpal bones. The soft tissue structures are unremarkable. RAD/Wrist min 3 Views IMPRESSION: Normal x-ray examination of the wrist. Electronically Signed: Ace Gutiérrez MD at 14:13 EST Tel , Service support ,
== END ==
PROVIDERS: PCP Pediatrics; Referring Provider Orthopaedic Surgery; Visit Provider Orthopaedic Surgery
DX: S69.91XA Unspecified injury of right wrist, hand and finger(s), initial encounter (principal)
CPT/HCPCS: 73110

== ENCOUNTER 2019-11-14 05:52 | Day surgery (SDC) | payer OTHER, SELFPAY ==
[2019-11-12 11:04] VITALS: BMI 44.4
[2019-11-14] VITALS (7 sets, daily range): BP systolic 146–156; BP diastolic 58–72; PULSE 66–82; RESP 16–20; TEMP 36.8–37.7; O2SAT 92–99; BMI 42.5
--- NOTE | 2019-11-14 06:05 | EKG12_ITS ---
Test Reason : PRE OP Blood Pressure : / mmHG Vent. Rate : 064 BPM Atrial Rate : 064 BPM P-R Int : 136 ms QRS Dur : 106 ms QT Int : 430 ms P-R-T Axes : 023 029 044 degrees QTc Int : 443 ms Normal sinus rhythm Increased R/S ratio in V1, consider early transition or posterior infarct or normal variant or lead p lacement Abnormal ECG Confirmed by ERIN HARMON, MILI ([id number]), dictionary editor TAYLOR CAMARILLO ([id number]) on 11/19/2019 2:10:14 PM Referred By: Kyree Loera Confirmed By:MILI KHAN MD
[2019-11-14 06:30] LABS: Bedside Glucose 129 mg/dL (70-110)
[2019-11-14] MEDS: Lactated Ringers 1,000 ML 100 ML IV ×2 (06:37→08:35)
[2019-11-14] MEDS: Cefazolin 2 GM in 0.9% Normal Saline 100 ML IV (07:28)
--- NOTE | 2019-11-14 07:30 | RAD_ITS ---
STUDY: X-RAY - LEFT WRIST REASON FOR EXAM: Male, 44 years old. ORIF. 39 SEC. FL, 3 IMAGES TECHNIQUE: 3 view(s) of the wrist were obtained. COMPARISON: Left wrist x-rays obtained on 11/11/2019 FINDINGS: 3 C-arm images of the left wrist were performed and show a metallic compression plate in place affixing a Valiente''s fracture of the distal radial metaphysis in their anatomic position alignment. The ulnar styloid fracture is unchanged. RAD/Wrist min 3 Views IMPRESSION: Status post ORIF of a Valiente''s fracture of the left wrist which is maintained in good position and alignment. Electronically Signed: Familia He, at 15:55 EST Tel , Service support ,
--- NOTE | 2019-11-14 09:13 | HP.PCM_ITS ---
History and Physical Date of Admission: 11/14/19 Intake Intake Visit Reasons: LEFT WRIST Accompanied by: Mother Is patient in pain?: Yes Pain scale (1-10): 8 Allergies codeine Adverse Reaction (Verified 11/11/19 16:37) Other Medications Acetaminophen [Tylenol] 500 - 1,000 mg PO Q6H PRN PRN 02/13/17 [History Confirmed 11/12/19] Atorvastatin Calcium [Lipitor] 20 mg PO QHS 02/13/17 [History Confirmed 11/12/19] Metformin HCl [Metformin HCl ER] 500 mg PO BID 02/13/17 [History Confirmed 11/12/19] Aspirin [Aspirin, Baby] 81 mg PO DAILY@0800 #30 tab.chew 08/21/18 [Rx Confirmed 11/12/19] Lisinopril [Zestril] 20 mg PO BID #60 tab 08/21/18 [Rx Confirmed 11/12/19] Metoprolol Tartrate [Lopressor (beta shawn)] 25 mg PO BID #60 tab 08/21/18 [Rx Confirmed 11/12/19] furosemide 20 mg tablet 20 mg PO DAILY 08/30/18 [History Confirmed 11/12/19] Hydrocodone Bitart/Apap 5-325 [[place] 5MG-325MG] 1 tab PO Q6H PRN PRN 3 Days #10 tab 11/11/19 [Rx Confirmed 11/12/19] PFSH Social History (Updated 11/12/19 @ 12:[address] Kyree Loera DO) Smoking Status: Never smoker HPI LEFT WRIST: Details: Parts of this documentation were recorded by a scribe, this documenta tion accurately reflects the service provided and the decisions made by me, Kyree Loera DO 11/12/19 1100. EDD DUPONT is a 44 year old M [facility] here today for a left wrist fracture at work yesterday when he tripped and landed on his bilateral hands. He has a splint from the ED on the left wrist and and ecchymosis and swelling to the right wrist with pain. He has xrays of the left wrist and right hand as well as a wound on his forehead was evaluated. Patient does have a history of flash pulmonary edema as well as anemia for which he is scheduled for an EGD next week. Ortho Exam Right Wrist/Hand Skin/Wound: Yes Swelling, Yes Ecchymosis, Yes capillary refill normal Right Wrist: Yes Snuffbox tenderness; no ROM-Extension 0-60 or ROM-Flexion 0-80 Motor: EPL: 5, FDP-2: 5, 1st Dorsal Interosseous: 5, APB: 5 Sensation: Radial: I, Ulnar: I, Median: I WRIST: scaphoid tubercle tenderness Left Wrist/Hand Skin/Wound: Yes Swelling, Yes Ecchymosis, Yes capillary refill normal, No erythema Left Wrist: No ROM-Extension 0-60 or No ROM-Flexion 0-80 Sensation: Radial: I, Ulnar: I, Median: I WRIST: NVI, normal sensation to light touch Supplemental Info 11/11/2019 xray left wrist comminuted displaced intra-articular fracture distal radius and ulnar styloid fracture Assessment & Plan Problems 1. Valiente's fracture of left radius, initial encounter for closed fracture S52.542A 2. Nondisplaced fracture of left ulna styloid process, initial encounter for closed fracture S52.615A 3. Injury of right wrist, initial encounter S69.91XA Plan Explained that he has an ulnar styloid fracture and distal radius fracture, the radius will need surgically repaired. Instructed to keep the hand and arm elevated to reduce swelling and he can use ice on the fingers. Reviewed the surgical procedure in detail and the post op restrictions. He will be unable to use the left wrist for push/pull or lifting for at minimum of 6wks. He also has a right wrist injury and on exam he has signs of a scaphoid injury and it will require an MRI for further eval. We will request codes for bilateral wrists, MRI and surgery. Explained the risk of OA developing later, he is at a risk of delayed healing due to the DM and his environment containing second hand smoke. Instructed to reduce his sugar intake. Follow up after surgery or sooner if pain, swelling, numbness or associated symptoms, or concerns develop. All questions answered. Patient in agreement of plan. Orders Orders: Wrist min 3 Views Today S69.91XA Upper Ext Joint Only(Routine) Today S69.91XA Coding Level of Care Code Off vis,new,level 3 Diagnoses Valiente's fracture of left radius, initial encounter for closed fracture S52.542A Nondisplaced fracture of left ulna styloid process, initial encounter for closed fracture S52.615A Injury of right wrist, initial encounter S69.91XA ??Encounter type: initial encounter I have re-examined the patient. There are no clinical changes since date of exam
--- NOTE | 2019-11-14 09:14 | PCM.DC.ORTHO ---
Discharge Diet: 1800 Calorie Control Diet Call your doctor if you observe: Shortness of breath, Chest pain Additional Instructions: Do not remove splint. Keep splint on clean and dry do not get wet. Courage finger range of motion. Absolutely no lifting pushing or pulling any weight with operative extremity. Keep elevated above heart over the next week. Keep cool. Do not stick anything inside of splint. Avoiding sweating will help with itch. If itchy may use [id number] Benadryl. Follow-up as directed call with any concerns. Allergies/Adverse Reactions: Allergies codeine Adverse Reaction (Verified 11/14/19 06:04) Other Medications to take at Discharge Acetaminophen [Tylenol] 500 - 1,000 mg PO Q6H PRN PRN 02/13/17 Atorvastatin Calcium [Lipitor] 20 mg PO QHS 02/13/17 Metformin HCl [Metformin HCl ER] 500 mg PO BID 02/13/17 furosemide 20 mg tablet 20 mg PO DAILY 08/30/18 Aspirin [Aspirin, Baby] 81 mg PO DAILY@0800 11/13/19 Ezetimibe [Zetia] 10 mg PO DAILY 11/13/19 Lisinopril [Zestril] 40 mg PO BID 11/13/19 Metoprolol Tartrate [Lopressor (beta shawn)] 25 mg PO BID 11/13/19 Sertraline HCl [Zoloft] 50 mg PO DAILY 11/13/19 Oxycodone [Oxyir] 5 mg PO Q4H PRN PRN #40 tab 11/14/19 The following prescriptions were given: Oxycodone [Oxyir] 5 mg PO Q4H PRN PRN #40 tab PRN Reason: Pain Score 4-5/10 Transmission Status: Sent to [facility] [place] - [id number] Orders to be completed after discharge: Basic Metabolic Profile (BMP) Time Frame: 11/14/19, Facility: [facility], Location: Laboratory CBC-Complete Blood Cnt No Diff Time Frame: 11/14/19, Facility: [facility], Location: Laboratory Hemoglobin A1c Time Frame: 11/14/19, Facility: [facility], Location: Laboratory Primary Care Physician: Itz Orellana DO [Primary Care Provider] - Test Results: Test results from this visit will be discussed in further detail at your follow-up appointment, if applicable. Please Follow Up With: Kyree Loera DO - 1 week
--- NOTE | 2019-11-14 09:17 | PCM.OPRPT ---
Report of Operation Date of Procedure: 11/14/19 Description of Surgical Findings:: Preoperative diagnosis: Left distal radius intra-articular displaced fracture Postoperative diagnosis: [Same] Procedure: ORIF of the distal radius Implants: Synthes distal radius variable angle locking plate Tourniquet time: 59 minutes 250 mmHg Complications: [None] Indication for procedure: This is a 44-year-old male gentleman who fell onto both of his wrists sustaining a left distal radius fracture with intra-articular displacement greater than 3 fragments. We discussed risks benefits and alternatives of conservative versus surgical intervention. Including the risk of bleeding infection nerve artery tissue damage need for further surgery continued pain postoperative stiffness need for postoperative physical therapy and the expected postoperative course. Procedure: The patient was met in the preoperative holding area the operative extremity was identified by both patient and physician and marked. Patient had a nerve block placed by anesthesia patient was met by anesthesia she was brought back to the operating room on a wheeled cart and transferred to the operating table in the supine position anesthesia was started. A well-padded tourniquet was placed on the upper arm of the operative extremity. She was prepped and draped in the usual sterile fashion. A Time out was called to ensure the proper patient procedure and extremity were being contemplated. A 15 blade scalpel was used to make a linear incision over the FCR tendon this was carried down through the skin and subcutaneous tissue. Electrocautery was used to maintain hemostasis. Vasyl retractors were used. The FCR tendon sheath was incised and the FCR tendon was mobilized radially. A deep blade scalpel was used to perforate the fascia of the deep FCR tendon sheath and Littler scissors were used to dissect proximally and distally. Blunt dissection was performed a martha was placed on the radial and ulnar side of the radius. The pronator quadratus was partially torn from the injury and was released off the radial border of the radius with electrocautery and was elevated with a rosa elevator. The Hohmann retractors were then placed deep to this muscle. The fracture site was visualized and was freed of hematoma and clot debris with the use of small rongeur and [place]. The fracture was then reduced with the use of a [place] and ulnar deviation and wrist flexion. This was checked under fluoroscopy to ensure that an adequate reduction could be performed. A plate was then positioned over the fracture site and temporarily fixed to the bone with K wires. A cortical screw was then placed in the shaft and sequential locking screws were placed distally this was checked on both AP and lateral projections to ensure screw placement was not penetrating the joint and was in the proper location. Bone drill sleeve was used for the radial styloid screw and a variable angle fashion. The remainder of the cortical screws were placed in the shaft. And the fracture and hardware were visualized in both AP and lateral projections in good alignment and fracture positioning. The wound was thoroughly irrigated. Pronator quadratus was not repairable. A subcutaneous stitch with 3-0 Vicryl was performed followed by 4-0 nylon vertical mattress stitches. Followed by Xeroform 4 x 4 ABD web roll stockinette more web roll and an Adam wrap. The tourniquet was let down. There was no complications intraoperatively and the patient was brought back to the PACU in stable condition where she received an axillary block. All counts were correct.
[2019-11-14 09:41] LABS: Bedside Glucose 133 mg/dL (70-110)
[2019-11-14] MEDS: oxyCODONE 5 MG Tablet PO (10:37)
== END 2019-11-14 12:25 | disposition home or self-care (01) ==
LOC: SDC 05:52 → AC 05:54
PROVIDERS: PCP Pediatrics; Referring Provider Orthopaedic Surgery; Visit Provider Orthopaedic Surgery
PROC: (CPT 25609; principal; 2019-11-14 07:15)
DX: S52.572A Other intraarticular fracture of lower end of left radius, initial encounter for closed fracture (principal); S52.615A Nondisplaced fracture of left ulna styloid process, initial encounter for closed fracture; E11.9 Type 2 diabetes mellitus without complications; F41.9 Anxiety disorder, unspecified; E78.00 Pure hypercholesterolemia, unspecified; I10 Essential (primary) hypertension; W01.0XXA Fall on same level from slipping, tripping and stumbling without subsequent striking against object, initial encounter; Y93.9 Activity, unspecified; Y92.89 Other specified places as the place of occurrence of the external cause; Y99.0 Civilian activity done for income or pay; Z79.899 Other long term (current) drug therapy; Z79.82 Long term (current) use of aspirin; Z79.84 Long term (current) use of oral hypoglycemic drugs
CPT/HCPCS: 01830; 25609; 73110; 76000; 82962; 93005; C1713; J7120; J2405

== ENCOUNTER → 2019-11-19 15:19 | Outpatient (CLI) | payer SELFPAY ==
[2019-11-14 06:24] VITALS: BMI 42.5
[2019-11-20 09:24] LABS: HIV - WCH Non-Reactive (Nonreactive); Hepatitis B Surf AB - EMP Non-Reactive; Hepatitis B Surface Antigen Non-Reactive (Nonreactive); Hepatitis C Antibody Non-Reactive (Nonreactive)
[2019-11-21 05:26] LABS: Hepatitis B Core Ab Total Negative (Negative)
== END ==
LOC: LABSPEC 15:20 → HHLAB 16:18
PROVIDERS: PCP Pediatrics; Visit Provider Emergency Medicine
DX: Z00.00 Encounter for general adult medical examination without abnormal findings (principal)
CPT/HCPCS: 86703; 86704; 86706; 86803; 87340

== ENCOUNTER → 2019-11-21 09:47 | Outpatient (CLI) | payer OTHER, SELFPAY ==
[2019-11-14 06:24] VITALS: BMI 42.5
--- NOTE | 2019-11-21 09:48 | RAD_ITS ---
HISTORY: FOLLOW UP AFTER SURGERY, SPECIAL VIEWS TO SHOW SCREW LOCATION COMPARISON: November 11, 2019 FINDINGS: # of images incl. paperwork: 2 Internal fixation hardware plating and screws been placed across the distal radius fracture. Alignment is improved. The fracture is not completely healed. Fracture does extend into the joint. RAD/Wrist 2 Views IMPRESSION: Incomplete healing 2 distal radius fracture with internal fixation plating at 0556 Reported and signed by: Rick Damon MD Electronically Signed: Rick Damon MD at 5:54 EST Tel , Service support ,
--- NOTE | 2019-11-21 10:04 | RAD_ITS ---
HISTORY: FOLLOW UP POST OP, AFTER CAST REMOVAL COMPARISON: Study from 13 minutes earlier FINDINGS: # of images incl. paperwork: 2 The ulnar styloid fracture has not healed but is better demonstrated on the retake of the imaging. The distal radius fracture remains plated and in near anatomic alignment. RAD/Wrist 2 Views IMPRESSION: Nonunion ulnar styloid fracture. Plating across incomplete healing to distal radius fracture with improved alignment at 0557 Reported and signed by: Rick Damon MD Electronically Signed: Rick Damon MD at 5:56 EST Tel , Service support ,
== END ==
PROVIDERS: PCP Pediatrics; Referring Provider Orthopaedic Surgery; Visit Provider Orthopaedic Surgery
DX: S52.542A Smith's fracture of left radius, initial encounter for closed fracture (principal)
CPT/HCPCS: 73100

== ENCOUNTER → 2019-11-28 10:48 | Outpatient (CLI) | payer OTHER, SELFPAY ==
[2019-11-28 08:00] VITALS: BMI 42.5
--- NOTE | 2019-11-28 11:01 | RAD_ITS ---
STUDY: X-RAY - RIGHT WRIST REASON FOR EXAM: Male, 44 years old. PAIN AT BASE OF THUMB/WRIST TECHNIQUE: 4 view(s) of the wrist were obtained. COMPARISON: 11/12/2019 FINDINGS: Normal visualized distal radius and ulna. Normal radiocarpal articulation. Normal distal radioulnar articulation. Degenerative subcortical cyst of the distal scaphoid is stable. Normal carpal articulations. Normal carpometacarpal articulation of the thumb. Normal second through fifth carpometacarpal articulations. Normal visualized metacarpal bones. The soft tissue structures are unremarkable. RAD/Wrist min 3 Views IMPRESSION: No fracture, malalignment or erosive process. Electronically Signed: Preet Elias MD ([place]) at 17:04 EDT , Service support ,
== END ==
PROVIDERS: PCP Pediatrics; Referring Provider Orthopaedic Surgery; Visit Provider Orthopaedic Surgery
DX: S69.91XA Unspecified injury of right wrist, hand and finger(s), initial encounter (principal)
CPT/HCPCS: 73110

== ENCOUNTER → 2019-12-26 10:51 | Outpatient (CLI) | payer OTHER, SELFPAY ==
[2019-11-28 08:00] VITALS: BMI 42.5
--- NOTE | 2019-12-26 10:51 | RAD_ITS ---
STUDY: X-RAY - RIGHT WRIST REASON FOR EXAM: Male, 44 years old. PAIN TECHNIQUE: 3 view(s) of the wrist were obtained. COMPARISON: Comparison is made with prior examination dated November 28, 2019. FINDINGS: Normal visualized distal radius and ulna. Normal radiocarpal articulation. Normal distal radioulnar articulation. Normal carpal bones. Normal carpal articulations. Normal carpometacarpal articulation of the thumb. Normal second through fifth carpometacarpal articulations. Normal visualized metacarpal bones. The soft tissue structures are unremarkable. RAD/Wrist min 3 Views IMPRESSION: Normal x-ray examination of the wrist. Electronically Signed: Bear Cox, at 12:49 EDT , Service support ,
--- NOTE | 2019-12-26 10:51 | RAD_ITS ---
STUDY: X-RAY - LEFT WRIST REASON FOR EXAM: Male, 44 years old. POST OP TECHNIQUE: 3 view(s) of the wrist were obtained. COMPARISON: Comparison is made with prior examination dated November 21, 2019. FINDINGS: The patient is status post open reduction and internal fixation using screw and sideplate fixation device of the distal radial fracture. There is evidence of healing. Alignment is maintained. Ulnar styloid fracture.. Normal radiocarpal articulation. Normal distal radioulnar articulation. Normal carpal bones. Normal carpal articulations. Normal carpometacarpal articulation of the thumb. Normal second through fifth carpometacarpal articulations. Normal visualized metacarpal bones. Soft tissue swelling. RAD/Wrist min 3 Views IMPRESSION: Healing fracture of the distal radius. The alignment is maintained. Soft tissue swelling. Electronically Signed: Bear Cox, at 12:48 EDT , Service support ,
== END ==
PROVIDERS: PCP Family Medicine; Referring Provider Orthopaedic Surgery; Visit Provider Orthopaedic Surgery
DX: S52.542A Smith's fracture of left radius, initial encounter for closed fracture (principal); S69.91XA Unspecified injury of right wrist, hand and finger(s), initial encounter
CPT/HCPCS: 73110

== ENCOUNTER 2019-12-31 10:30 | Outpatient (RCR) | payer OTHER, BC, SELFPAY ==
[2019-11-28 08:00] VITALS: BMI 42.5
--- NOTE | 2019-12-03 11:18 | HP.OTEVAL ---
Patient's Visit Information EDD DUPONT is a 44 year old M, referred to Occupational Therapy by Kyree Loera DO, with a diagnosis of L wrist ORIF. Date of Evaluation: 12/03/19 Occupational Therapist: Eulalia Herrmann - Subjective Subjective: Pt seen for initial occupational therapy evaluation for L wrist ORIF that occured 11/11/2019. Pt had ORIF sx October. 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 Pt fell over wood piece on floor while at work and injured L wrist leading to L wrist ORIF. Pt right hand dominent. Pt reports he hurt his R wrist as well and has R wrist brace on. Pt indep with BADL's at home. Staying at home w/ family who are able to assist with IADL's as needed. Hobbies; video games, fishing, camping. - Pain Left Wrist 6 Pain Intensity Range: 2, 10 - Objective Objective/Observation: limited L wrist ROM, strength, increased pain L wrist/hand with movement and rest, L wrist scar healing well, no redness noted. - ROM Wrist: L 55'/50' R DNT ROM Comments: R wrist not tested secondary in R wrist brace from injury. Pt able to make composite fist, touch each finger to thumb L hand. L ulnar deviation 5', radial deviation 6'. 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 Goal:: Pt will progress w/ L wrist AROM extension by 10' and flexion by 30' to increase independence with BADL tasks and opening containers. Goal:: Pt will demo decrease L wrist pain no greater than 1/10 with movement by d/c from OT services Goal:: Pt will be educated on scar massage, scar mngmt with good understanding and demo 75%x. Goal:: Pt will be educated on L UE HEP with good understanding and demo 75%x. - Rehabilitation General Assessment: Pt seen for initial occupational therapy for L wrist ORIF after fall while at work. Pt demo decreased ROM, strength, increased pain and decreased functional use of L wrist/hand secondary to ORIF. Pt would benefit from direct occupational therapy services to increase AROM L wrist, increase L wrist strength, educate on appropriate HEP, educate on scar mngmt techniques to increase pts quality of life and return back to PLOF. Rehabilitation Potential: Good - Anticipated Interventions Anticipated Interventions: A/AAROM/PROM, Strengthening, Edema Control, Scar Care, Massage, Modalities, Orthoses, Joint Protection/Energy Conservation, Fine Motor Coord/Duncan, Education re assistive Equipment, Education re Diagnosis, Education re Skin Care and Precautions, Education re Self Massage Techniques, Home Program - Visit Plan Frequency: 3x /Week Duration: 6 Weeks General Plan: Pt would benefit from direct occupational therapy services to increase AROM L wrist, increase L wrist strength, decrease pain with use of modalities as needed, educate on appropriate HEP, educate on scar mngmt techniques to increase pts quality of life and return back to PLOF. TEXT: Thank you for the opportunity to evaluate your patient. For Medicare and Medicare HMO plans, please review the plan of care and approve it. It will need to be FAXED BACK to us at [phone] for Medicare purposes. Please let me know if there are questions or concerns regarding this plan of care. Physician Signature: Date:
--- NOTE | 2020-02-12 17:56 | HP.OT.NRP ---
EDD DUPONT was seen in my office for initial evaluation on 12/03/19. The following Plan of Care was established for this patient: Initial Frequency: 3x /Week Initial Duration: 6 Weeks Plan: To be discharged Anticipated Interventions: A/AAROM/PROM, Strengthening, Edema Control, Scar Care, Massage, Modalities, Orthoses, Joint Protection/Energy Conservation, Fine Motor Coord/[place], Education re assistive Equipment, Education re Diagnosis, Education re Skin Care and Precautions, Education re Self Massage Techniques, Home Program This patient was last seen in our office 01/03/20. Pertinent comments regarding their Occupational therapy will appear below: Pt last seen 01/03/20 for L wrist ORIF, pt was progressing with L UE ROM and strength. Educated on L UE HEP wth good understanding. D/C OT POC secondary to non-returning pt. At this point I will be discontinuing this patient from occupational therapy. I would be happy to see this patient again in the future if found appropriate by the physician. Thank you! Eulalia Herrmann
== END 2019-12-31 19:00 | disposition home or self-care (01) ==
LOC: OT 10:30
PROVIDERS: PCP Family Medicine; Referring Provider Orthopaedic Surgery; Visit Provider Orthopaedic Surgery
DX: Z98.890 Other specified postprocedural states (principal)
CPT/HCPCS: 97110; 97140; 97165; 97166; 97530

== ENCOUNTER → 2020-01-23 10:42 | Outpatient (CLI) | payer OTHER, SELFPAY ==
[2019-12-26 11:24] VITALS: BMI 42.5
--- NOTE | 2020-01-23 10:43 | RAD_ITS ---
STUDY: X-RAY - RIGHT WRIST REASON FOR EXAM: Male, 44 years old. Pain TECHNIQUE: 4 view(s) of the wrist were obtained including navicular view.. COMPARISON: None. FINDINGS: Normal visualized distal radius and ulna. Normal radiocarpal articulation. Normal distal radioulnar articulation. Normal carpal bones. Normal carpal articulations. Normal carpometacarpal articulation of the thumb. Normal second through fifth carpometacarpal articulations. Normal visualized metacarpal bones. The soft tissue structures are unremarkable. RAD/Wrist min 3 Views IMPRESSION: Normal x-ray examination of the wrist. Electronically Signed: Bear Cox, at 11:08 EDT , Service support ,
--- NOTE | 2020-01-23 10:43 | RAD_ITS ---
STUDY: X-RAY - LEFT WRIST REASON FOR EXAM: Male, 44 years old. Post op TECHNIQUE: 3 view(s) of the wrist were obtained. COMPARISON: Comparison is made with prior examination dated December 26, 2019. FINDINGS: Scan, the patient is status post open reduction and internal fixation of the distal radial fracture. The fracture is healed. The alignment is maintained. Avulsion fracture of the ulnar styloid. Normal radiocarpal articulation. Normal distal radioulnar articulation. Normal carpal bones. Normal carpal articulations. Normal carpometacarpal articulation of the thumb. Normal second through fifth carpometacarpal articulations. Normal visualized metacarpal bones. Soft tissue swelling. RAD/Wrist min 3 Views IMPRESSION: Prior ORIF of the distal radius with healing of the fracture in good anatomic alignment. Electronically Signed: Bear Cox, at 11:10 EDT , Service support ,
== END ==
PROVIDERS: PCP Family Medicine; Referring Provider Orthopaedic Surgery; Visit Provider Orthopaedic Surgery
DX: S62.009A Unspecified fracture of navicular [scaphoid] bone of unspecified wrist, initial encounter for closed fracture (principal); S52.615A Nondisplaced fracture of left ulna styloid process, initial encounter for closed fracture
CPT/HCPCS: 73110

== ENCOUNTER 2021-05-14 14:05 | Emergency (ER) | payer BC, SELFPAY ==
[2021-05-14 14:06] VITALS: BP 164/67; PULSE 66; RESP 28; TEMP 37.3; O2SAT 94; BMI 46.0
[2021-05-14 14:10] VITALS: BP 156/58; PULSE 66; RESP 28; TEMP 37.3; O2SAT 91; O2SAT 92
[2021-05-14 15:59] LABS: Absolute Lymphocyte Count 0.76 X10^3/uL (0.83-4.51); Basophil# 0.01 X10^3/uL; Basophil% 0.3 % (0-1); Hematocrit 42.3 % (40-54); Hemoglobin 14.2 g/dL (13.0-16.5); Lymphocyte # 0.76 X10^3/ul (0.83-4.51); Lymphocyte % 24.8 % (19-41); Mean Corp Hgb Conc 33.6 g/dL (32-36); Mean Corpuscular Hgb 32.1 pg (27.0-32.0); Mean Corpuscular Volume 95.5 fL (80-94); Mean Platelet Vol. 12.4 fl (6.2-12.0); Monocyte# 0.32 X10^3/uL; Monocyte% 10.5 % (0-10); NRBC Flagged by Analyzer 0 % (0-5); Neutrophil # 1.96 X10^3/uL (2.7-7.7); Neutrophil % 64.1 % (47-70); Platelet Count 114 K/mm3 (150-450); RBC Distribution Width CV 14.2 % (11.6-14.6); RBC Distribution Width SD 50.2 fl (35.1-43.9); Red Blood Count 4.43 M/mm3 (4.6-6.2); White Blood Count 3.1 K/mm3 (4.4-11.0)
[2021-05-14 16:09] LABS: Bacteria 0 SEEN /hpf (None Seen); Color, Urine Yellow (Yellow); Glucose, Dipstick 1000 mg/dl (Normal); Ketone-Dipstick Negative (Negative); Leukocyte Esterase-Dipstick Negative /ul (Negative); Mucous, Urine 0 SEEN /hpf (<or=2+); Nitrite-Dipstick Negative (Negative); Occult Blood-Urine 150 /ul (Negative); Protein-Dipstick 100 mg/dl (Negative); Urine Bilirubin Dipstick Negative (Negative); Urine Clarity Sl. Cloudy (Clear); Urine Urobilinogen Normal (Normal)
[2021-05-14 16:10] LABS: ALB/GLOB Ratio 0.6 RATIO (0.9-2.4); AST(SGOT) 94 U/L (15-37); Alanine Aminotransfer ALT/SGPT 87 U/L (16-61); Alkaline Phosphatase 156 U/L (45-117); Anion Gap 5 (5-15); BUN 12 mg/dL (7-18); BUN/Creat Ratio 17.7 RATIO (10-20); Chloride 102 mmol/L (98-107); Creatinine, Serum 0.68 mg/dL (0.70-1.30); EST Glomerular Filtration Rate 134 mL/min (>60); Est Glom Filt Rate - Afr Amer 163 mL/min (>60); Estimated Creatinine Clearance 146.11 ml/min; Globulin 5.1 g/dL (2.2-4.2); Glucose 135 mg/dL (74-106); Potassium 4.1 mmol/L (3.5-5.1); Protein, Total 8.1 g/dL (6.4-8.2); Sodium Level 137 mmol/L (136-145)
[2021-05-14 16:24] VITALS: BP 147/56; PULSE 66; RESP 23; TEMP 37.6; O2SAT 90
[2021-05-14 16:24] LABS: Red Blood Cells-Urine 10-25 SEEN /hpf (0-5); Squamous Epithelial Cells - UA 0-5 SEEN /hpf (0-5); White Blood Cells 0-5 SEEN /hpf (0-5)
--- NOTE | 2021-05-14 17:06 | CT_ITS ---
STUDY: CT ABDOMEN AND PELVIS WITHOUT CONTRAST REASON FOR EXAM: Male, 46 years old. hematuria RADIATION DOSAGE (If Supplied By Facility): CTDIvol = ( 26.32 ) mGy, DLP = ( 1918.70 ) mGycm TECHNIQUE: Transaxial images were obtained from the dome of the diaphragm to the symphysis pubis without oral contrast, and without intravenous contrast. Sagittal and coronal images were reconstructed. Individualized dose optimization techniques were used for this CT. COMPARISON: None. FINDINGS: There are chronic interstitial fibrotic changes of the lung bases. The visualized portions of the heart are within normal limits. There is a diffuse contour abnormality of the liver consistent with cirrhotic changes. Dilated veins of the upper abdomen adjacent to the esophagus suggesting varices. Normal gallbladder and extrahepatic biliary system. There is moderate splenomegaly. Normal pancreas. Normal bilateral adrenal glands. Normal right kidney. Normal left kidney. Normal visualized stomach. Normal small intestine. Normal colon. The appendix is visualized and appears normal. Normal abdominal aorta. Normal inferior vena cava. Normal retroperitoneum. Normal urinary bladder. Operative changes of the abdominal wall. Normal osseous structures. CT/Abdomen/Pelvis without Cont IMPRESSION: 1. No hydronephrosis or urinary tract calcifications. 2. 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 Electronically Signed: Preet Elias MD ([place]) at 18:04 EDT , Service support ,
--- NOTE | 2021-05-14 17:30 | EDS_ITS ---
HPI History of Present Illness Chief Complaint: Complaint Informant: patient Onset/Context/Timing Onset: Yesterday Context: Gradual Onset Timing: Continuous Quality: Stinging Location: Urethra Worsened by: Nothing Relieved by: Nothing Narrative Narrative: Patient presents with hematuria and dysuria that began yesterday. Patient states he has a stinging sensation in his urethra when he urinates. Patient noted some red blood when he urinated today. Patient states nothing makes it worse and nothing makes it better. Patient denies any fevers or chills. Patient denies any nausea or vomiting. Patient denies any neck or back pain. Patient does admit to a cough with some clear sputum and some rhinorrhea. [facility] Medical History Anxiety Anxiety Benign essential HTN Bleeding esophageal varices Borderline diabetes Chest pain Cirrhosis CPAP (continuous positive airway pressure) dependence Diabetes Elevated CPK Flash pulmonary edema Hyperlipidemia Hypertension Hypertensive emergency Obesity Sleep apnea Thrombocytopenia Home Medications acetaminophen 500 - 1,000 mg PO Q6H PRN PRN 02/13/17 [History Last Taken 08/17/18 500 - 1000 MG] atorvastatin 80 mg PO QHS 02/13/17 [History Last Taken 08/17/18 20 MG] metformin 1,000 mg PO BID 02/13/17 [History Last Taken 08/17/18 500 MG] furosemide 20 mg tablet 20 mg PO DAILY 08/30/18 [History Last Taken Unknown] aspirin 81 mg PO DAILY@0800 11/13/19 [History Last Taken Unknown] ezetimibe 10 mg PO DAILY 11/13/19 [History Last Taken Unknown] lisinopril 40 mg PO BID 11/13/19 [History Last Taken 11/14/19 04:45] sertraline 75 mg PO DAILY 11/13/19 [History Last Taken 11/14/19 04:45] Gabapentin 100 mg PO TID 11/18/20 [History Last Taken Unknown] Melatonin 5 mg PO QHS 11/18/20 [History Last Taken Unknown] Nadolol 40 mg PO DAILY 11/18/20 [History Last Taken Unknown] Omeprazole 10 mg PO DAILY 11/18/20 [History Last Taken Unknown] Farxiga 5 mg PO DAILY 12/20/20 [History Last Taken Unknown] Allergy/AdvReac Type Severity Reaction Status Date / Time codeine AdvReac Other Verified 11/14/19 06:04 Surgical History S/P inguinal hernia repair Social History Smoking Status: Never smoker ROS ROS ED Constitutional Constitutional ED: Denies chills or fever(s) Eyes Eyes: Denies blurry vision or change in vision ENT ENT ED: Reports rhinorrhea; Denies sore throat Cardiovascular Cardiovascular: Denies chest pain or palpitations Respiratory/Chest Respiratory/Chest: Reports cough and sputum; Denies dyspnea Gastrointestinal Gastrointestinal: Denies nausea or vomiting Genitourinary Genitourinary ED: Reports dysuria and hematuria Musculoskeletal Musculoskeletal: Denies back pain or neck pain Integumentary Denies abscess or rash Neurologic Neurologic: Denies headache(s) or weakness Allergic/Immunologic Allergic/Immunologic ED: Denies mouth swelling or urticaria EXAM Physical Exam Const Vital Signs: 05/14/21 14:06 05/14/21 14:10 05/14/21 16:24 Temperature 99.1 F 99.1 F 99.6 F H Temperature Source Oral Oral Oral Pulse Rate 66 66 66 Respiratory Rate 28 H 28 H 23 H Blood Pressure 164/67 H 156/58 H 147/56 H Blood Pressure Mean 99 90 86 Pulse Ox 94 92 90 Oxygen Delivery Method Room Air Room Air Room Air 05/14/21 17:47 05/14/21 18:35 Temperature 99.8 F H 99.1 F Temperature Source Oral Oral Pulse Rate 69 65 Respiratory Rate 31 H 23 H Blood Pressure 159/65 H 163/61 H Blood Pressure Mean 96 95 Pulse Ox 92 Oxygen Delivery Method Room Air Positive well nourished, well developed and obese General Appearance ED: well developed Nutritional Appearance: obese HEENT Reports moist mucous membranes Neck supple and no JVD Resp normal respiratory effort and clear to auscultation bilaterally Cardio regular rate, regular rhythm and no murmurs GI normal to inspection, nondistended, normoactive bowel sounds and non-tender Palpation: soft Extremity normal to inspection General Extremety ED: Negative for edema or tenderness General Extremity: Negative for edema Neuro oriented x3, CN's II-XII intact bilaterally and no sensory deficits noted Sensorium / Orientation: alert Motor Exam: strength 5/5 throughout Psych mental status grossly normal Skin no rashes or lesions noted MDM MDM MDM Narrative Medical decision making narrative: CBC and comprehensive metabolic profile were within normal limits. Urinalysis shows evidence of hematuria but no evidence of urinary tract infection. CT scan of the abdomen pelvis was obtained. There is no hydronephrosis or ureteral calculus. There is cirrhosis noted. This was interpreted by the radiologist and reviewed by myself. Patient was advised of his findings. Patient was instructed to drink plenty of fluids. Patient was instructed to follow-up with his primary care physician in 3 to 5 days. Patient understood and was agreeable with the plan. All questions were answered. Lab Data Attestation: I reviewed the patient's lab results. Labs: Laboratory Results - last 24 hr 05/14/21 05/14/21 05/14/21 12:42 12:42 15:52 WBC 3.1 L RBC 4.43 L Hgb 14.2 Hct 42.3 MCV 95.5 H MCH 32.1 H MCHC 33.6 RDW Std Deviation 50.2 H RDW Coeff of Ken 14.2 Plt Count 114 L MPV 12.4 H Immature Gran % (Auto) 0.300 Neut % (Auto) 64.1 Lymph % (Auto) 24.8 [place] % (Auto) 10.5 H Eos % (Auto) 0.0 Baso % (Auto) 0.3 Absolute Neuts (auto) 2.0 Absolute Lymphs (auto) 0.76 L Nucleated RBC % 0 Sodium 137 Potassium 4.1 Chloride 102 Carbon Dioxide 30.0 Anion Gap 5 BUN 12 Creatinine 0.68 L Estim Creat Clear Calc 146.11 Est GFR (MDRD) Af Amer 163 Est GFR (MDRD) Non-Af 134 BUN/Creatinine Ratio 17.7 Glucose 135 H Calcium 8.0 L Total Bilirubin 1.20 H AST 94 H ALT 87 H Alkaline Phosphatase 156 H Total Protein 8.1 Albumin 3.0 L Globulin 5.1 H Albumin/Globulin Ratio 0.6 L Urine Color Yellow Urine Clarity Sl. Cloudy Urine pH 5.0 Ur Specific [place] 1.020 Urine Protein 100 H Urine Glucose (UA) 1000 H Urine Ketones Negative Urine Occult Blood 150 H Urine Nitrite Negative Urine Bilirubin Negative Urine Urobilinogen Normal Ur Leukocyte Esterase Negative Urine RBC 10-25 SEEN Urine WBC 0-5 SEEN Ur Squamous Epith Cells 0-5 SEEN Urine Bacteria 0 SEEN Urine Mucus 0 SEEN Radiography Diagnostic Testing: Radiology Impression Abdomen/Pelvis CT 05/14/21 17:06 IMPRESSION: 1. No hydronephrosis or urinary tract calcifications. 2. 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 Electronically Signed: Preet Elias MD ([place]) at 18:04 EDT , Service support , Discharge Plan Triage Chief Complaint: Complaint ED Provider: Aurelio Schaefer Dx/Rx/DC Orders Clinical Impression: Hematuria Instructions: ED Hematuria Prescriptions: No Action furosemide [Lasix] 20 mg tablet 20 mg PO DAILY RF: 0 atorvastatin 20 MG tablet 80 mg PO QHS RF: 0 acetaminophen 500 MG tablet 500 - 1,000 mg PO Q6H PRN PRN (Reason: Pain) RF: 0 metformin 500 MG tablet,ER carlyn.retention 24 hr 1,000 mg PO BID RF: 0 Gabapentin 100 mg PO TID RF: 0 Nadolol 40 mg PO DAILY RF: 0 Omeprazole 10 mg PO DAILY RF: 0 Melatonin 5 mg PO QHS RF: 0 Farxiga 5 MG tablet 5 mg PO DAILY RF: 0 lisinopril 20 MG tablet 40 mg PO BID RF: 0 aspirin 81 MG tablet,chewable 81 mg PO DAILY@0800 RF: 0 sertraline 50 MG tablet 75 mg PO DAILY RF: 0 ezetimibe 10 MG tablet 10 mg PO DAILY RF: 0 Primary Care Provider: Tomas Holman Referrals: Tomas Holman MD [Primary Care Provider] - 3-5 Days Disposition Disposition: Home, Self Care
[2021-05-14 17:47] VITALS: BP 159/65; PULSE 69; RESP 31; TEMP 37.7
[2021-05-14 18:35] VITALS: BP 163/61; PULSE 65; RESP 23; TEMP 37.3; O2SAT 92
[2021-05-14 19:05] VITALS: BP 161/58; PULSE 64; RESP 18; O2SAT 92
== END 2021-05-14 19:06 | disposition home or self-care (01) ==
PROVIDERS: Emergency Provider Emergency Medicine; PCP Family Medicine
DX: R31.9 Hematuria, unspecified (principal); R30.0 Dysuria; E66.9 Obesity, unspecified
CPT/HCPCS: 74176; 80053; 81001; 85025; 99285; A4216

== ENCOUNTER 2021-05-15 21:54 | Inpatient (IN) | payer BC, SELFPAY ==
[2021-05-15 21:55] VITALS: BP 167/64; PULSE 74; RESP 24; TEMP 37.3; O2SAT 88; BMI 44.6
[2021-05-15 21:59] VITALS: BP 167/64; PULSE 74; RESP 24; TEMP 37.3; O2SAT 94
[2021-05-15 22:04] VITALS: O2SAT 94
--- NOTE | 2021-05-15 22:17 | EKG12_ITS ---
Test Reason : DYSRYTHMIA Blood Pressure : / mmHG Vent. Rate : 071 BPM Atrial Rate : 071 BPM P-R Int : 118 ms QRS Dur : 100 ms QT Int : 424 ms P-R-T Axes : 020 027 052 degrees QTc Int : 460 ms Normal sinus rhythm Normal ECG Confirmed by JAKOB HARMON, GLORIA ([id number]), digital editor CRISSY MARIA ([id number]) on 05/17/2021 8:40:41 AM Referred By: MISAEL Confirmed By:GLORIA ROBERT MD
[2021-05-15] MEDS: dexAMETHasone 4 MG/ML Vial 6 MG IV (22:46)
--- NOTE | 2021-05-15 22:48 | RAD_ITS ---
STUDY: X-RAY CHEST REASON FOR EXAM: Male, 46 years old. cough, covid TECHNIQUE: Single frontal view of the chest. COMPARISON: 08/17/2018 FINDINGS: Diffuse bilateral pulmonary infiltrates. Low lung volumes. No pneumothorax or pleural effusion. Normal size heart. Normal mediastinum and subha. Normal visualized pulmonary arteries. Normal visualized aortic arch and descending thoracic aorta. There are diffuse degenerative changes of the visualized thoracic spine. There is degenerative osteoarthritis of the bilateral shoulders. There is no demonstrated abnormality of the visualized soft tissue structures of the upper abdomen. RAD/Chest 1 View (Portable) IMPRESSION: Bilateral pulmonary infiltrates. Nonspecific finding. Given patient''s history this could be related to an atypical viral infectious process such as Covid 19. Electronically Signed: West Mishra MD at 23:06 EDT Tel , Service support ,
[2021-05-15 22:54] LABS: Absolute Lymphocyte Count 0.62 X10^3/uL (0.83-4.51); Absolute Neutrophil Count 1.9 X10^3/uL (2.0-7.7); Hematocrit 39.4 % (40-54); Hemoglobin 13.3 g/dL (13.0-16.5); Lymphocyte # 0.62 X10^3/ul (0.83-4.51); Lymphocyte % 22.2 % (19-41); Mean Corp Hgb Conc 33.8 g/dL (32-36); Mean Corpuscular Hgb 31.8 pg (27.0-32.0); Mean Corpuscular Volume 94.3 fL (80-94); Mean Platelet Vol. 11.8 fl (6.2-12.0); Monocyte% 10.8 % (0-10); NRBC Flagged by Analyzer 0 % (0-5); Neutrophil # 1.86 X10^3/uL (2.7-7.7); Neutrophil % 66.6 % (47-70); Platelet Count 110 K/mm3 (150-450); RBC Distribution Width CV 14.2 % (11.6-14.6); RBC Distribution Width SD 49.9 fl (35.1-43.9); Red Blood Count 4.18 M/mm3 (4.6-6.2); White Blood Count 2.8 K/mm3 (4.4-11.0)
[2021-05-15 23:12] LABS: ALB/GLOB Ratio 0.6 RATIO (0.9-2.4); AST(SGOT) 119 U/L (15-37); Alanine Aminotransfer ALT/SGPT 100 U/L (16-61); Albumin, Serum 2.7 g/dL (3.2-5.0); Alkaline Phosphatase 136 U/L (45-117); Anion Gap 6 (5-15); BUN 12 mg/dL (7-18); BUN/Creat Ratio 21.7 RATIO (10-20); Calcium,Total 7.8 mg/dL (8.5-10.1); Chloride 100 mmol/L (98-107); Creatinine, Serum 0.55 mg/dL (0.70-1.30); EST Glomerular Filtration Rate 170 mL/min (>60); Est Glom Filt Rate - Afr Amer 205 mL/min (>60); Estimated Creatinine Clearance 180.64 ml/min; Globulin 4.5 g/dL (2.2-4.2); Glucose 147 mg/dL (74-106); Protein, Total 7.2 g/dL (6.4-8.2); Sodium Level 134 mmol/L (136-145)
--- NOTE | 2021-05-15 23:43 | ED.VIS.DYS ---
HPI History of Present Illness Chief Complaint: Shortness of Breath Informant: patient Narrative Narrative: Patient has had Covid symptoms for about 8 days. He was diagnosed about 7 days ago. He has been watching his O2 sats at home. They have generally been doing about 90-91 at the lowest. Today he has been dropping into the 80s. He had 80 at home. He called EMS. EMS got his saturations at 80%. With multiple deep breath sitting still they were able to get them up to about 90-91 but then would go back down. Patient is not having much in the way of GI symptoms. He is still eating and drinking. He is not having pains. Sitting in bed he is not actually short of breath. However, he is on 2 L with sats at 92 to 94% now. Nothing specifically makes his symptoms worse or better. [facility] Medical History Anxiety Anxiety Benign essential HTN Bleeding esophageal varices Borderline diabetes Chest pain Cirrhosis CPAP (continuous positive airway pressure) dependence Diabetes Elevated CPK Flash pulmonary edema Hyperlipidemia Hypertension Hypertensive emergency Obesity Sleep apnea Thrombocytopenia Home Medications acetaminophen 500 - 1,000 mg PO Q6H PRN PRN 02/13/17 [History Last Taken 08/17/18 500 - 1000 MG] atorvastatin 80 mg PO QHS 02/13/17 [History Last Taken 08/17/18 20 MG] metformin 1,000 mg PO BID 02/13/17 [History Last Taken 08/17/18 500 MG] furosemide 20 mg tablet 20 mg PO DAILY 08/30/18 [History Last Taken Unknown] aspirin 81 mg PO DAILY@0800 11/13/19 [History Last Taken Unknown] ezetimibe 10 mg PO DAILY 11/13/19 [History Last Taken Unknown] lisinopril 40 mg PO BID 11/13/19 [History Last Taken 11/14/19 04:45] sertraline 75 mg PO DAILY 11/13/19 [History Last Taken 11/14/19 04:45] Gabapentin 100 mg PO TID 11/18/20 [History Last Taken Unknown] Melatonin 5 mg PO QHS 11/18/20 [History Last Taken Unknown] Nadolol 40 mg PO DAILY 11/18/20 [History Last Taken Unknown] Omeprazole 10 mg PO DAILY 11/18/20 [History Last Taken Unknown] Farxiga 10 mg PO DAILY 12/20/20 [History Last Taken Unknown] sitagliptin [Januvia] 100 mg PO DAILY 05/15/21 [History Last Taken Unknown] Allergy/AdvReac Type Severity Reaction Status Date / Time codeine AdvReac Other Verified 05/15/21 21:59 Surgical History S/P inguinal hernia repair Social History Smoking Status: Former smoker ROS ROS ED Constitutional Constitutional ED: Denies chills or fever(s) ENT ENT ED: Reports rhinorrhea Cardiovascular Cardiovascular: Denies chest pain Respiratory/Chest Respiratory/Chest: Reports cough and dyspnea; Denies sputum Gastrointestinal Gastrointestinal: Denies abdominal pain, nausea or vomiting Genitourinary Genitourinary ED: Reports hematuria and other Details: Seen for hematuria yesterday. Musculoskeletal Musculoskeletal: Reports myalgias and other Details: Some malaise. Integumentary Denies rash Neurologic Neurologic: Denies headache(s) Hematologic/Lymphatic Hematologic/Lymphatic: Denies easy bleeding or easy bruising Allergic/Immunologic Allergic/Immunologic ED: Denies urticaria EXAM Physical Exam Const Vital Signs: 05/15/21 21:55 05/15/21 21:59 05/15/21 22:04 Temperature 99.2 F H 99.2 F H Temperature Source Oral Oral Pulse Rate 74 74 Respiratory Rate 24 H 24 H Blood Pressure 167/64 H 167/64 H Blood Pressure Mean 98 98 Pulse Ox 88 94 94 Oxygen Delivery Method Room Air Nasal Cannula Nasal Cannula Oxygen Flow Rate (L/min) 2 2 Positive well nourished HEENT atraumatic Eyes General Eye ED: Negative for pale conjunctiva or scleral icterus Neck no lymphadenopathy and supple Resp normal respiratory effort Resp Narrative: Mild diffuse coarse breath sounds. Respiratory effort is normal though. Cardio regular rate and regular rhythm GI non-tender Palpation: soft Back/Spine no CVA tenderness Extremity General Extremety ED: Negative for tenderness Neuro oriented x3 Sensorium / Orientation: alert Psych mental status grossly normal Skin Rashes: no rashes MDM MDM MDM Narrative Medical decision making narrative: Patient's white count is low which is also consistent with Covid. Hemoglobin is normal. Electrolytes are showing no marked abnormalities. Mild bump of LFTs which he has had in the past. This may be Covid or chronic for him. Chest x-ray shows some mild bilateral pulmonary infiltrates that are consistent with Covid. Patient is given Decadron here. I took him off oxygen while I was doing my eval. Just sitting in bed without doing anything he had 88%. I then put him back on 2 L and he is back up to about 92 or 9%. I think with his hypoxia and worsening hypoxia as an outpatient he should come in the hospital. I have the hospitalist on page. Lab Data Labs: Laboratory Results - last 24 hr 05/15/21 05/15/21 22:45 22:45 WBC 2.8 L RBC 4.18 L Hgb 13.3 Hct 39.4 L MCV 94.3 H MCH 31.8 MCHC 33.8 RDW Std Deviation 49.9 H RDW Coeff of Ken 14.2 Plt Count 110 L MPV 11.8 Immature Gran % (Auto) 0.400 Neut % (Auto) 66.6 Lymph % (Auto) 22.2 [place] % (Auto) 10.8 H Eos % (Auto) 0.0 Baso % (Auto) 0.0 Absolute Neuts (auto) 1.9 L Absolute Lymphs (auto) 0.62 L Nucleated RBC % 0 Sodium 134 L Potassium 4.0 Chloride 100 Carbon Dioxide 28.0 Anion Gap 6 BUN 12 Creatinine 0.55 L Estim Creat Clear Calc 180.64 Est GFR (MDRD) Af Amer 205 Est GFR (MDRD) Non-Af 170 BUN/Creatinine Ratio 21.7 H Glucose 147 H Calcium 7.8 L Total Bilirubin 1.50 H AST 119 H ALT 100 H Alkaline Phosphatase 136 H Total Protein 7.2 Albumin 2.7 L Globulin 4.5 H Albumin/Globulin Ratio 0.6 L Radiography Diagnostic Testing: Radiology Impression Chest X-Ray 05/15/21 22:48 IMPRESSION: Bilateral pulmonary infiltrates. Nonspecific finding. Given patient''s history this could be related to an atypical viral infectious process such as Covid 19. Electronically Signed: West Mishra MD at 23:06 EDT Tel , Service support , EKG Initial EKG: Comments: EKG shows sinus rhythm with overall rate of 71. No ectopy. No acute ST elevation or depression. SC interval, QRS duration and QTc are normal. Discharge Plan Dx/Rx/DC Orders Clinical Impression: Pneumonia due to COVID-19 virus, Hypoxia Disposition Disposition: Acute Care Hospital [facility]
[2021-05-15 23:59] VITALS: BP 156/64; PULSE 70; RESP 21; TEMP 37.2; O2SAT 93
[2021-05-16] VITALS (16 sets, daily range): BP systolic 132–172; BP diastolic 59–73; PULSE 47–71; RESP 16–28; TEMP 36.3–37.2; O2SAT 93–96; BMI 43.9
--- NOTE | 2021-05-16 00:08 | HP.PCM.HOS_ITS ---
HPI - General General Date of Admission: 05/16/21 Date of Service: 05/16/21 Chief Complaint: Dyspnea, cough, worsening, recent COVID diagnosis. HPI Narrative The patient is a 46 y/o M w/ PMHx: HTN, HLD, BAN, Cirrhosis w/ Hx bleeding varicies, Borderline Diabetes mellitus type II, Morbid obesity, Chronic thrombocytopenia, Former Tobacco use, recently 05/14/21 ED evaluatoin with complaint of hematuria, dysuria that began on 05/13/[address] and urinalysis with discharge to home with mention during that visit of cough, clear sputum and mild rhinorrhea but did not mention to the ED physician that he been diagnosed with Covid on Sunday05/09/21 who now represents to the [facility] ED on 05/15/21 with progressively worsening dyspnea, cough with low pulse ox of 88% prompting ED return. He notes he was tested at the urgent care, [facility] clinic. He notes having fever, chills, headaches, sore throat, nausea, abdominal cramping with no emesis or diarrhea associated, body aches. He denies any alteration to his sense of taste or smell. Patient was not vaccinated. Work-up in the ED included T 99.2, heart 74, BP 167/64, respiratory rate 24, 88% on room air, improvement to 94% on 2 L nasal cannula, CBC with WC 2.8, hemoglobin 13.3, platelet 110 with neutropenia, lymphopenia concurrently, CMP with sodium 134, BUN/creatinine 12/0.55, glucose 147, total bilirubin 1.50, AST/ALT 119/100, alk phos 136, CXR w/ BL pulmonary infiltrates consistent with COVID PNA. In the ED patient administered IV decadron. [facility] Medical History (Updated 05/15/21 @ 23:[address] Carlos Aguilar MD) Anxiety Anxiety Benign essential HTN Bleeding esophageal varices Borderline diabetes Chest pain Cirrhosis CPAP (continuous positive airway pressure) dependence Diabetes Elevated CPK Flash pulmonary edema Hyperlipidemia Hypertension Hypertensive emergency Obesity Sleep apnea Thrombocytopenia Home Medications acetaminophen 500 - 1,000 mg PO Q6H PRN PRN 02/13/17 [History Last Taken 08/17/18 500 - 1000 MG] atorvastatin 80 mg PO QHS 02/13/17 [History Last Taken 08/17/18 20 MG] metformin 1,000 mg PO BID 02/13/17 [History Last Taken 08/17/18 500 MG] furosemide 20 mg tablet 20 mg PO DAILY 08/30/18 [History Last Taken Unknown] aspirin 81 mg PO DAILY@0800 11/13/19 [History Last Taken Unknown] ezetimibe 10 mg PO DAILY 11/13/19 [History Last Taken Unknown] lisinopril 40 mg PO BID 11/13/19 [History Last Taken 11/14/19 04:45] sertraline 75 mg PO DAILY 11/13/19 [History Last Taken 11/14/19 04:45] Gabapentin 100 mg PO TID 11/18/20 [History Last Taken Unknown] Melatonin 5 mg PO QHS 11/18/20 [History Last Taken Unknown] Nadolol 40 mg PO DAILY 11/18/20 [History Last Taken Unknown] Omeprazole 10 mg PO DAILY 11/18/20 [History Last Taken Unknown] Farxiga 10 mg PO DAILY 12/20/20 [History Last Taken Unknown] sitagliptin [Januvia] 100 mg PO DAILY 05/15/21 [History Last Taken Unknown] Allergy/AdvReac Type Severity Reaction Status Date / Time codeine AdvReac Other Verified 05/15/21 21:59 Family History (Updated 05/16/21 @ 00:[address] Kamille Louise MD) Mother COPD (chronic obstructive pulmonary disease) Father COPD (chronic obstructive pulmonary disease) CVA (cerebral vascular accident) Hypertension Surgical History (Updated 05/16/21 @ 00:[address] Kamille Louise MD) Hx of umbilical hernia repair S/P inguinal hernia repair S/P ORIF (open reduction internal fixation) fracture Social History (Updated 05/16/21 @ 00:[address] Kamille Louise MD) household members: none Smoking Status: Former smoker how long ago did patient quit smoking: Prior 1 pack/week starting in his 20s, stopped 10-12 years ago. alcohol intake: never substance use type: does not use ROS ROS Narrative Admission Review of Systems: CONSTITUTIONAL: No weight loss, + fever, chills, weakness or fatigue. HEENT: + RODRIGUEZ, sore throat, congestion. Eyes: No visual loss, blurred vision, double vision or yellow sclerae. Ears, Nose, Throat: No hearing loss, sneezing. SKIN: No rash or itching, lesions, wounds. CARDIOVASCULAR: No chest pain, chest pressure or chest discomfort, palpitations, edema, orthopnea, syncopal events. RESPIRATORY: + shortness of breath, cough, No increased sputum, wheezing, hemoptysis. GASTROINTESTINAL: + anorexia, nausea, abdominal cramping, No vomiting, diarrhea, melena, BRBPR. GENITOURINARY: No dysuria, frequency, urgency or retention. NEUROLOGICAL: + headache, No dizziness, syncope, paralysis, ataxia, numbness or tingling in the extremities, focal weakness, change in bowel or bladder control, seizure. MUSCULOSKELETAL: + muscle, back pain, joint pain or stiffness. HEMATOLOGIC: No anemia, bleeding or bruising. LYMPHATICS: No enlarged nodes. No history of splenectomy. PSYCHIATRIC: + history of depression or anxiety. ENDOCRINOLOGIC: No reports of sweating, cold or heat intolerance. No polyuria or polydipsia. ALLERGIES: No history of asthma, hives, eczema or rhinitis. Vital Signs Vital Signs Vital Signs: 05/15/21 21:55 05/15/21 21:59 05/15/21 22:04 Temperature 99.2 F H 99.2 F H Temperature Source Oral Oral Pulse Rate 74 74 Respiratory Rate 24 H 24 H Blood Pressure 167/64 H 167/64 H Blood Pressure Mean 98 98 Pulse Ox 88 94 94 Oxygen Delivery Method Room Air Nasal Cannula Nasal Cannula Oxygen Flow Rate (L/min) 2 2 Weight Weight: 320 lb 8.834 oz Body Mass Index (BMI) 44.6 Physical Exam Narrative Physical Examination: General: Awake, alert, oriented x 3 and cooperative, laying in the ED bed, fatigued and ill-appearing, diaphoretic. Skin: Flushed color, normal turgor, no icterus, no cyanosis. HEENT: AT/NC, EOMI, PERRLA, dry MM, no carotid bruits or JVD noted. Lungs: CTA bilaterally, moderate effort, mild decrease BL bases, no rales, ronchi or wheezing. Heart: Regular rate and rhythm; no gallop, rub audible. Abdomen: Soft, morbidly obese, NTTP, no obvious distention but habitus makes examination difficult, mildly hyperactive bowel sounds, no obvious HSM but habitus makes exam difficult Extremities: No cyanosis, clubbing, or edema. Neurological: Patient awake, alert, oriented as noted, cognitive function intact; pupils equally reactive to light and accommodation, cranial nerves II- XII grossly normal, moving all 4 extremities, no focal deficits, strength moder ately to severely global decrease secondary to acute presentation. Psychiatric: Affect appears fatigued, ill-appearing, no acute evidence of depressive or anxiety feelings. Results Lab / Micro Data Result Diagrams: 05/15/21 22:45 05/15/21 22:45 Labs: Laboratory Results - last 24 hr 05/15/21 22:45: WBC 2.8 L, RBC 4.18 L, Hgb 13.3, Hct 39.4 L, MCV 94.3 H, MCH 31.8, MCHC 33.8, RDW Std Deviation 49.9 H, RDW Coeff of Ken 14.2, Plt Count 110 L, MPV 11.8, Immature Gran % (Auto) 0.400, Neut % (Auto) 66.6, Lymph % (Auto) 22.2, [place] % (Auto) 10.8 H, Eos % (Auto) 0.0, Baso % (Auto) 0.0, Absolute Neuts (auto) 1.9 L, Absolute Lymphs (auto) 0.62 L, Nucleated RBC % 0 05/15/21 22:45: Sodium 134 L, Potassium 4.0, Chloride 100, Carbon Dioxide 28.0, Anion Gap 6, BUN 12, Creatinine 0.55 L, Estim Creat Clear Calc 180.64, Est GFR (MDRD) Af Amer 205, Est GFR (MDRD) Non-Af 170, BUN/Creatinine Ratio 21.7 H, Glucose 147 H, Calcium 7.8 L, Total Bilirubin 1.50 H, AST 119 H, ALT 100 H, Alkaline Phosphatase 136 H, Total Protein 7.2, Albumin 2.7 L, Globulin 4.5 H, Albumin/Globulin Ratio 0.6 L Radiology Impression Chest X-Ray 05/15/21 22:48 IMPRESSION: Bilateral pulmonary infiltrates. Nonspecific finding. Given patient''s history this could be related to an atypical viral infectious process such as Covid 19. Electronically Signed: West Mishra MD at 23:06 EDT Tel , Service support , Assessment & Plan Assessment/Plan (1) Pneumonia due to COVID-19 virus: (2) Hypoxia: PLAN: The patient is a 46 y/o M w/ PMHx: HTN, HLD, BAN, Cirrhosis w/ Hx bleeding varicies, Borderline Diabetes mellitus type II, Morbid obesity, Chronic thrombocytopenia, Former Tobacco use, recently 05/14/21 ED evaluatoin with complaint of hematuria, dysuria that began on 05/13/[address] and urinalysis with discharge to home with mention during that visit of cough, clear sputum and mild rhinorrhea but did not mention to the ED physician that he been diagnosed with Covid on Sunday05/09/21 who now represents to the [facility] ED on 05/15/21 with progressively worsening dyspnea, cough with low pulse ox of 88% prompting ED return. 1. Acute Hypoxia secondary to Acute Viral Syndrome, COVID-19: Will admit to the medical surgical floor on Covid precautions, will maintain on oxygen with wean as tolerated to room air, PRN albuterol, HOB, IS parameters w/ pending sputum cultures, respiratory viral panel and urine antigens, will obtain D-dimer, procalcitonin, CRP, CPK, Ferritin, LDH, trop and BNP, continue supportive care including q 2 hour turning including prone given no prone bed availability and judicious hydration, closely monitor for worsening status for ARDS and multiorgan failure, will consult Infectious disease, will initiate and continue IV decadron x 10 doses. Unfortunately no remdesivir stock. 2. Cirrhosis with history of bleeding varices with chronic LFT elevations: We will continue patient home nadolol, Lasix, not on any lactulose or spironolactone. We will closely monitor I's and O's, daily weights. Cautiously continued on aspirin therapy but low threshold to hold given history of bleeding varices as well as close monitoring of chemoprophylaxis as noted below. 3. Chronic thrombocytopenia: Admission platelets 110, recent 05/14/2021 evaluation with platelets 114, baseline 120-150 primarily, associated with patient underlying cirrhotic history as noted. 4. Morbid Obesity: Weight loss and lifestyle changes encouraged. 5. Borderline Diabetes mellitus type II: Hold oral home regimen, ADA diet, accu checks w/ ISS. 6. Hypertension: Continue home regimen including nadolol, lisinopril, Lasix, PRN hydralazine. 7. Hyperlipidemia: We will continue patient on statin therapy. 8. Anxiety and depression: We will continue patient home sertraline regimen. 9. GERD: We will maintain on patient home PPI. 10. Former tobacco use: Encourage continued tobacco cessation. 11. BAN: We will maintain on CPAP nightly. 12. DVT prophylaxis: SCDs, cautiously utilize Lovenox given history of bleeding varices. 13. CODE status: Patient does not have healthcare power of corporate associate attorney nor living will in place. Given presentation with underlying comorbidities and Covid bilateral pneumonia with acute hypoxia, discussed CODE status at length including difference between FULL code, DNR-CCA and DNR-CC status. Following discussions about the differences in these status, requested Full Code status. Patient is amenable to usage of air Vo and BiPAP prior to intubation. Advanced Care Planning Face to Face Time: 16 minutes. Charges/Coding Visit Charges Inpatient E&M: 52157 Init Hosp L3 Procedures Hospitalists Procedures: 80256 Advncd Care Plan 30 Min
[2021-05-16 01:37] LABS: Ferritin 397 ng/mL (26-388); LDH 371 U/L (87-241); Magnesium 1.8 mg/dL (1.6-2.6)
[2021-05-16 01:41] LABS: BNP,B-Type NATRIURETIC PEPTIDE 25.8 pg/mL (0-100)
[2021-05-16] MEDS: 0.9% Saline Lock 10 ML Syringe IV ×2 (01:46→11:23)
[2021-05-16] MEDS: 0.9% Normal Saline 1,000 ML 100 ML IV (01:46)
[2021-05-16] MEDS: hydrALAZINE 20 MG/ML Vial 10 MG IV (01:51)
[2021-05-16 03:00] LABS: Procalcitonin 0.06 ng/mL (0.00-0.09)
[2021-05-16 03:22] LABS: D-Dimer Quantitative (DVT/PE) 0.94 FEU/ug/m (0.27-0.49)
--- NOTE | 2021-05-16 03:57 | CT_ITS ---
STUDY: CTA CHEST REASON FOR EXAM: Male, 46 years old. suspected PE RADIATION DOSAGE (If Supplied By Facility): CTDIvol = ( 13.26 ) mGy, DLP = ( 1015.78 ) mGycm TECHNIQUE: The examination was performed with the intravenous administration of IV 100mL Isovue-370. Post-processing of the angiographic images was performed, with multiplanar reformation and 3D reconstruction. Individualized dose optimization techniques were used for this CT. COMPARISON: None. FINDINGS: Evaluation for pulmonary embolism is limited due to bolus timing. Normal thoracic aorta and visualized great vessels. There is no demonstrated aortic dissection. Small pericardial effusion. The heart is within normal limits in size.. Coronary artery calcifications. Mediastinal hilar lymph nodes measuring up to 1.4 cm in short axis. Bilateral groundglass opacities/infiltrates are seen within the lungs. Central airway appears patent. There is no pneumothorax or pleural effusion. Low lung volumes. There are degenerative changes of thoracic spine. Old rib fractures. The spleen is enlarged however partially visualized. This can be further characterized with findings from recent CT abdomen and pelvis. There is varices seen within the visualized upper abdomen. Cirrhotic appearance to the liver. Esophageal varices are noted. CT/CTA Chest W/WO Contrast IMPRESSION: Evaluation for pulmonary embolism is limited by bolus timing and patient motion artifact. There is no pulmonary embolism identified within the main pulmonary artery, RIGHT and LEFT main pulmonary arteries, hilar pulmonary arteries or segmental pulmonary arteries. Evaluation of the subsegmental pulmonary arteries and distally is limited. Bilateral groundglass opacities/infiltrates within the lungs. Nonspecific finding. Be seen with infectious inflammatory process in the appropriate clinical setting. An atypical viral infection such as Covid 19 can have a similar appearance. Recommend follow-up imaging to ensure resolution 4-6 weeks and to exclude underlying neoplasm. Cirrhotic appearance to the liver with varices around the stomach and esophagus with splenomegaly compatible with portal hypertension. Enlarged mediastinal/hilar lymph nodes. Recommend follow-up to resolution with CT scan as above. Other findings as above. Electronically Signed: West Mishra MD at 6:47 EDT Tel , Service support ,
[2021-05-16] MEDS: Insulin Lispro 100 UNIT/ML INSULN.PEN SC ×4 (06:49→21:09)
[2021-05-16 06:50] LABS: Bedside Glucose 201 mg/dL (70-110)
[2021-05-16] MEDS: Gabapentin 100 MG Capsule PO ×3 (06:50→21:11)
[2021-05-16 07:13] LABS: Absolute Lymphocyte Count 0.42 X10^3/uL (0.83-4.51); Absolute Neutrophil Count 1.3 X10^3/uL (2.0-7.7); Hematocrit 41.3 % (40-54); Hemoglobin 13.4 g/dL (13.0-16.5); Lymphocyte # 0.42 X10^3/ul (0.83-4.51); Lymphocyte % 23.5 % (19-41); Mean Corp Hgb Conc 32.4 g/dL (32-36); Mean Corpuscular Hgb 30.9 pg (27.0-32.0); Mean Corpuscular Volume 95.4 fL (80-94); Mean Platelet Vol. 12.3 fl (6.2-12.0); Monocyte# 0.11 X10^3/uL; Monocyte% 6.1 % (0-10); NRBC Flagged by Analyzer 0 % (0-5); Neutrophil # 1.25 X10^3/uL (2.7-7.7); Neutrophil % 69.8 % (47-70); POSITIVE DIFFERENTIAL YES; Platelet Count 103 K/mm3 (150-450); RBC Distribution Width CV 13.9 % (11.6-14.6); RBC Distribution Width SD 49.2 fl (35.1-43.9); Red Blood Count 4.33 M/mm3 (4.6-6.2); White Blood Count 1.8 K/mm3 (4.4-11.0)
[2021-05-16 07:16] LABS: Differential Indicated SCAN CRITERIA MET
[2021-05-16 07:35] LABS: ALB/GLOB Ratio 0.5 RATIO (0.9-2.4); AST(SGOT) 129 U/L (15-37); Alanine Aminotransfer ALT/SGPT 113 U/L (16-61); Albumin, Serum 2.6 g/dL (3.2-5.0); Alkaline Phosphatase 142 U/L (45-117); Anion Gap 6 (5-15); BUN 13 mg/dL (7-18); BUN/Creat Ratio 24.9 RATIO (10-20); Calcium,Total 8.1 mg/dL (8.5-10.1); Chloride 101 mmol/L (98-107); Creatinine, Serum 0.52 mg/dL (0.70-1.30); EST Glomerular Filtration Rate 181 mL/min (>60); Est Glom Filt Rate - Afr Amer 219 mL/min (>60); Estimated Creatinine Clearance 191.07 ml/min; Globulin 4.9 g/dL (2.2-4.2); Glucose 204 mg/dL (74-106); Potassium 4.2 mmol/L (3.5-5.1); Protein, Total 7.5 g/dL (6.4-8.2); Sodium Level 133 mmol/L (136-145)
[2021-05-16] MEDS: Sertraline 50 MG Tablet 75 MG PO (08:20)
[2021-05-16] MEDS: Nadolol 40 MG Tablet PO (08:21)
[2021-05-16] MEDS: Aspirin 81 MG TAB.CHEW PO (08:21)
[2021-05-16] MEDS: Lisinopril 40 MG Tablet PO ×2 (08:22→21:11)
[2021-05-16] MEDS: Pantoprazole Sodium 20 MG Tablet PO (08:22)
[2021-05-16] MEDS: Furosemide 20 MG Tablet PO (08:22)
[2021-05-16] MEDS: Enoxaparin 40 MG/0.4 ML Syringe SC ×2 (08:22→21:11)
[2021-05-16] MEDS: dexAMETHasone 4 MG/ML Vial 6 MG IV (08:23)
--- NOTE | 2021-05-16 10:06 | PN.HOSP_ITS ---
Subjective Subjective Patient was seen and examined. He feels slightly improved. Denied any fever chills Objective Data Objective Data Vital Signs: Vital Signs Temp Pulse Resp BP Pulse Ox 97.7 F L 56 L 16 143/62 H 96 05/16/21 08:18 05/16/21 08:18 05/16/21 08:18 05/16/21 08:18 05/16/21 08:36 Oxygen Flow Rate (L/min) 2 Oxygen Delivery Method Room Air Weight: 142.9 kg Body Mass Index (BMI) 43.9 Intake & Output: Intake and Output for Last 24 Hours 05/14/21 05/15/21 05/16/21 23:59 23:59 23:59 Intake Total 100 / 100 Balance 100 / 100 Lab / Micro Data Result Diagrams: 05/16/21 06:50 05/16/21 06:50 Labs: Laboratory Results - last 24 hr 05/15/21 22:45: WBC 2.8 L, RBC 4.18 L, Hgb 13.3, Hct 39.4 L, MCV 94.3 H, MCH 31 .8, MCHC 33.8, RDW Std Deviation 49.9 H, RDW Coeff of Ken 14.2, Plt Count 110 L, MPV 11.8, Immature Gran % (Auto) 0.400, Neut % (Auto) 66.6, Lymph % (Auto) 22.2, [place] % (Auto) 10.8 H, Eos % (Auto) 0.0, Baso % (Auto) 0.0, Absolute Neuts (auto) 1.9 L, Absolute Lymphs (auto) 0.62 L, Nucleated RBC % 0 05/15/21 22:45: Sodium 134 L, Potassium 4.0, Chloride 100, Carbon Dioxide 28.0, Anion Gap 6, BUN 12, Creatinine 0.55 L, Estim Creat Clear Calc 180.64, Est GFR (MDRD) Af Amer 205, Est GFR (MDRD) Non-Af 170, BUN/Creatinine Ratio 21.7 H, Glucose 147 H, Calcium 7.8 L, Total Bilirubin 1.50 H, AST 119 H, ALT 100 H, Alkaline Phosphatase 136 H, Total Protein 7.2, Albumin 2.7 L, Globulin 4.5 H, Albumin/Globulin Ratio 0.6 L 05/15/21 22:45: Magnesium 1.8, Ferritin 397 H, Lactate Dehydrogenase 371 H, C- React Prot Ext Range 19.30 H 05/15/21 22:45: B-Natriuretic Peptide 25.8 05/16/21 02:05: D-Dimer Quant (PE/DVT) 0.94 H* 05/16/21 02:05: Procalcitonin 0.06 05/16/21 06:40: POC Glucose 201 H 05/16/21 06:50: WBC 1.8 L, RBC 4.33 L, Hgb 13.4, Hct 41.3, MCV 95.4 H, MCH 30.9, MCHC 32.4, RDW Std Deviation 49.2 H, RDW Coeff of Ken 13.9, Plt Count 103 L, MPV 12.3 H, Immature Gran % (Auto) 0.600, Neut % (Auto) 69.8, Lymph % (Auto) 23.5, [place] % (Auto) 6.1, Eos % (Auto) 0.0, Baso % (Auto) 0.0, Absolute Neuts (auto) 1.3 L, Absolute Lymphs (auto) 0.42 L, Nucleated RBC % 0, Diff Path Review January05/16/21 06:50: Sodium 133 L, Potassium 4.2, Chloride 101, Carbon Dioxide 26.0, Anion Gap 6, BUN 13, Creatinine 0.52 L, Estim Creat Clear Calc 191.07, Est GFR (MDRD) Af Amer 219, Est GFR (MDRD) Non-Af 181, BUN/Creatinine Ratio 24.9 H, Glucose 204 H, Calcium 8.1 L, Total Bilirubin 1.30 H, AST 129 H, ALT 113 H, Alkaline Phosphatase 142 H, Total Protein 7.5, Albumin 2.6 L, Globulin 4.9 H, Albumin/Globulin Ratio 0.5 L Micro: Microbiology 05/16/21 03:15 Urine, Clean Catch Legionella Antigen - Final 05/16/21 03:15 Urine, Clean Catch Streptococcus pneumoniae Antigen (M - Final Radiography Diagnostic Testing: Radiology Impression Chest X-Ray 05/15/21 22:48 IMPRESSION: Bilateral pulmonary infiltrates. Nonspecific finding. Given patient''s history this could be related to an atypical viral infectious process such as Covid 19. Electronically Signed: West Mishra MD at 23:06 EDT Tel , Service support , Chest CTA 05/16/21 03:57 IMPRESSION: Evaluation for pulmonary embolism is limited by bolus timing and patient motion artifact. There is no pulmonary embolism identified within the main pulmonary artery, RIGHT and LEFT main pulmonary arteries, hilar pulmonary arteries or segmental pulmonary arteries. Evaluation of the subsegmental pulmonary arteries and distally is limited. Bilateral groundglass opacities/infiltrates within the lungs. Nonspecific finding. Be seen with infectious inflammatory process in the appropriate clinical setting. An atypical viral infection such as Covid 19 can have a similar appearance. Recommend follow-up imaging to ensure resolution 4-6 weeks and to exclude underlying neoplasm. Cirrhotic appearance to the liver with varices around the stomach and esophagus with splenomegaly compatible with portal hypertension. Enlarged mediastinal/hilar lymph nodes. Recommend follow-up to resolution with CT scan as above. Other findings as above. Electronically Signed: West Mishra MD at 6:47 EDT Tel , Service support , Physical Exam Narrative General: Alert, Oriented x3, Cooperative, No apparent distress, on 2 L of oxygen HEENT: Atraumatic, PERRLA, EOMI, Normocephalic Oral: Moist Mucosa Neck: Supple Lungs: Normal air movement, Diminished Cardiovascular: Regular rate, Regular Rhythm, Normal S1, Normal S2, No murmurs Abdomen: Bowel Sounds Present, Soft, Non Tender, Non-Distended, No Hepato- splenomegaly Extremities: No edema Assessment & Plan Assessment/Plan (1) BAN (obstructive sleep apnea): (2) Pneumonia due to COVID-19 virus: (3) Hyperlipidemia: QUALIFIERS: Hyperlipidemia type: unspecified Qualified Code(s): E78.5 - Hyperlipidemia, unspecified (4) Benign essential HTN: PLAN: 1. Acute hypoxic secondary to acute COVID-19 pneumonia Remains on 2 L oxygen, admitting chest x-ray was remarkable for bilateral pulmonary infiltrates. CTA of the chest was negative for acute PE, showed COVID-19 pneumonitis Continue on Decadron, will start on remdesivir Will give a trial of Lasix 20 mg IV x1 2. Type II DM, blood sugars fairly controlled, continue on Decadron 3. Leukopenia, with lymphopenia slightly worsened, WBC count is 1.8 4. Rest of chronic medical conditions including liver cirrhosis with history of bleeding varices/hypertension/hyperlipidemia/morbid obesity/anxiety/depres elda/BAN -all remained stable Home meds evaluated Charges/Coding Visit Charges Inpatient E&M: 91933 Subs Hosp L2
[2021-05-16 10:14] LABS: Magnesium 2.2 mg/dL (1.6-2.6)
--- NOTE | 2021-05-16 10:45 | CASEMGMT ---
LEEANNA SALCEDO Assessment: Face to Face with pt for initial transition planning/care coordination assessment. RN DENISSE introduced self and role at [facility], pt voices understanding and consents to assessment. Pt is A/O x4 and answers all questions appropriately at this time. Pt lying in bed with O2 on in no distress. Care providers, pharmacy, and demographics verified/updated. Admitting Dx: COVID PNA, hypoxia PCP: Manda Specialists: Pt denies having any specialists. Preferred Pharmacy: [facility] Insurance: [place] Prescription Benefit: yes LW/HPOA: Pt has a DPOA on file at [facility], no LW. DPOA is his mother Letty Connolly. LNOK: Letty Connolly, mother; Angie Connolly, sister Living Arrangements: Pt lives alone in a two story apartment with no steps to enter. Bedroom and bathroom on first floor. Pt reports being I in ADL's prior to hospitalization and denies concerns at home. Transportation: Pt does not drive. He states he has a coworker who transports him to work. His embedded case manager Ana M from the [employer] transports him to medical appts. DME/HHC/SNF: Pt denies having any DME in the home, previous HHC or SNF stays. 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 He was tested for COVID at [facility] on 05/09/21. Provided pt a list of local in network DME companies, he chose [facility] should he need O2 upon dc. Pt states no concerns with going home at time of dc. Pt states no further concerns/needs. CM to follow. Advised pt to ask CM if any further question/concerns/needs arise, voices understanding. Pt Goal: Home Plan: Home Pt provided a different address, updated in [place].
[2021-05-16] MEDS: Furosemide 20 MG/2 ML VIAL IV (11:23)
[2021-05-16 12:56] LABS: Bedside Glucose 269 mg/dL (70-110)
[2021-05-16] MEDS: BENZOCAINE/MENTHOL 1 LOZENGE MUCOUS MEM ×2 (14:04→21:20)
[2021-05-16 14:16] LABS: Pathologist Review Reviewed
[2021-05-16 17:06] LABS: Bedside Glucose 337 mg/dL (70-110)
[2021-05-16] MEDS: MELATONIN 10 MG TABLET 5 MG PO (21:10)
[2021-05-16] MEDS: Atorvastatin Calcium 80 MG Tablet PO (21:11)
[2021-05-16] MEDS: guaiFENesin 10 ML UDC (200MG/10ML) 20 ML PO (21:20)
[2021-05-16] MEDS: Loperamide 2 MG Capsule PO (21:20)
[2021-05-16 21:46] LABS: Bedside Glucose 349 mg/dL (70-110)
[2021-05-17] VITALS (15 sets, daily range): BP systolic 137–173; BP diastolic 63–74; PULSE 48–66; RESP 18–20; TEMP 36.2–36.4; O2SAT 84–97
--- NOTE | 2021-05-17 00:41 | PCS.PANDOC ---
PANDEMIC DOCUMENTATION INITIATED: Date: 05/02/2021 Time: 190
[2021-05-17] MEDS: Aspirin 81 MG TAB.CHEW PO (06:19)
[2021-05-17] MEDS: Gabapentin 100 MG Capsule PO ×3 (06:19→21:54)
[2021-05-17] MEDS: Insulin Lispro 100 UNIT/ML INSULN.PEN SC ×4 (06:19→21:56)
[2021-05-17 06:35] LABS: Bedside Glucose 253 mg/dL (70-110)
[2021-05-17 06:48] LABS: Absolute Lymphocyte Count 0.49 X10^3/uL (0.83-4.51); Absolute Neutrophil Count 2.5 X10^3/uL (2.0-7.7); Basophil# 0.01 X10^3/uL; Basophil% 0.3 % (0-1); Hematocrit 43.9 % (40-54); Hemoglobin 14.4 g/dL (13.0-16.5); Lymphocyte # 0.49 X10^3/ul (0.83-4.51); Lymphocyte % 14.8 % (19-41); Mean Corp Hgb Conc 32.8 g/dL (32-36); Mean Corpuscular Hgb 31.2 pg (27.0-32.0); Mean Platelet Vol. 12.3 fl (6.2-12.0); Monocyte# 0.26 X10^3/uL; Monocyte% 7.9 % (0-10); NRBC Flagged by Analyzer 0 % (0-5); Neutrophil # 2.54 X10^3/uL (2.7-7.7); Neutrophil % 76.7 % (47-70); POSITIVE DIFFERENTIAL YES; Platelet Count 129 K/mm3 (150-450); RBC Distribution Width CV 14.1 % (11.6-14.6); RBC Distribution Width SD 49.1 fl (35.1-43.9); Red Blood Count 4.62 M/mm3 (4.6-6.2); White Blood Count 3.3 K/mm3 (4.4-11.0)
[2021-05-17 07:05] LABS: Differential Indicated SCAN CRITERIA MET
[2021-05-17 07:16] LABS: Differential Comment SCANNED
[2021-05-17 07:31] LABS: ALB/GLOB Ratio 0.5 RATIO (0.9-2.4); AST(SGOT) 100 U/L (15-37); Alanine Aminotransfer ALT/SGPT 109 U/L (16-61); Albumin, Serum 2.6 g/dL (3.2-5.0); Alkaline Phosphatase 134 U/L (45-117); Anion Gap 4 (5-15); BUN 24 mg/dL (7-18); BUN/Creat Ratio 38.1 RATIO (10-20); Calcium,Total 8.3 mg/dL (8.5-10.1); Chloride 104 mmol/L (98-107); Creatinine, Serum 0.63 mg/dL (0.70-1.30); EST Glomerular Filtration Rate 146 mL/min (>60); Est Glom Filt Rate - Afr Amer 177 mL/min (>60); Estimated Creatinine Clearance 157.71 ml/min; Globulin 4.8 g/dL (2.2-4.2); Glucose 239 mg/dL (74-106); Protein, Total 7.4 g/dL (6.4-8.2); Sodium Level 138 mmol/L (136-145)
[2021-05-17] MEDS: 0.9% Saline Lock 10 ML Syringe IV ×4 (09:26→21:53)
[2021-05-17] MEDS: Enoxaparin 40 MG/0.4 ML Syringe SC ×2 (09:30→21:55)
[2021-05-17] MEDS: Sertraline 50 MG Tablet 75 MG PO (09:30)
[2021-05-17] MEDS: Furosemide 20 MG Tablet PO (09:40)
[2021-05-17] MEDS: dexAMETHasone 4 MG Tablet 6 MG PO (09:40)
[2021-05-17] MEDS: Pantoprazole Sodium 20 MG Tablet PO (09:40)
[2021-05-17] MEDS: Lisinopril 40 MG Tablet PO ×2 (09:41→21:54)
--- NOTE | 2021-05-17 11:01 | PCM.PN.HOSP ---
Subjective Subjective Patient was seen and examined. He remains on 2 to 3 L of oxygen. No acute events overnight Objective Data Objective Data Vital Signs: Vital Signs Temp Pulse Resp BP Pulse Ox 97.3 F L 55 L 20 H 153/63 H 92 05/17/21 09:30 05/17/21 09:30 05/17/21 09:30 05/17/21 09:30 05/17/21 09:30 Oxygen Flow Rate (L/min) 3 Oxygen Delivery Method Nasal Cannula Weight: 142.247 kg Body Mass Index (BMI) 43.9 Intake & Output: Intake and Output for Last 24 Hours 05/15/21 05/16/21 05/17/21 23:59 23:59 23:59 Intake Total 1700 / 1700 240 / 240 Balance 1700 / 1700 240 / 240 Lab / Micro Data Result Diagrams: 05/17/21 06:20 05/17/21 06:20 Labs: Laboratory Results - last 24 hr 05/16/21 06:50: Diff Path Review Reviewed 05/16/21 11:21: POC Glucose 269 H 05/16/21 16:34: POC Glucose 337 H 05/16/21 21:06: POC Glucose 349 H 05/17/21 06:18: POC Glucose 253 H 05/17/21 06:20: WBC 3.3 L, RBC 4.62, Hgb 14.4, Hct 43.9, MCV 95.0 H, MCH 31.2, MCHC 32.8, RDW Std Deviation 49.1 H, RDW Coeff of Ken 14.1, Plt Count 129 L, MPV 12.3 H, Immature Gran % (Auto) 0.300, Neut % (Auto) 76.7 H, Lymph % (Auto) 14.8 L, [place] % (Auto) 7.9, Eos % (Auto) 0.0, Baso % (Auto) 0.3, Absolute Neuts (auto) 2.5, Absolute Lymphs (auto) 0.49 L, Nucleated RBC % 0, Differential Comment SCANNED, Diff Path Review January05/17/21 06:20: Sodium 138, Potassium 4.0, Chloride 104, Carbon Dioxide 30.0, Anion Gap 4 L, BUN 24 H, Creatinine 0.63 L, Estim Creat Clear Calc 157.71, Est GFR (MDRD) Af Amer 177, Est GFR (MDRD) Non-Af 146, BUN/Creatinine Ratio 38.1 H, Glucose 239 H, Calcium 8.3 L, Total Bilirubin 0.70, AST 100 H, ALT 109 H, Alkaline Phosphatase 134 H, Total Protein 7.4, Albumin 2.6 L, Globulin 4.8 H, Albumin/Globulin Ratio 0.5 L Micro: Microbiology 05/16/21 07:10 Mucosa - Nasopharyngeal Respiratory Panel (PCR) - Final 05/16/21 03:15 Urine, Clean Catch Legionella Antigen - Final 05/16/21 03:15 Urine, Clean Catch Streptococcus pneumoniae Antigen (M - Final Physical Exam Narrative General: Alert, Oriented x3, Cooperative, No apparent distress, on 2-3 L of oxygen HEENT: Atraumatic, PERRLA, EOMI, Normocephalic Oral: Moist Mucosa Neck: Supple Lungs: Normal air movement, Diminished Cardiovascular: Regular rate, Regular Rhythm, Normal S1, Normal S2, No murmurs Abdomen: Bowel Sounds Present, Soft, Non Tender, Non-Distended, No Hepato-splenomegaly Extremities: No edema Assessment & Plan Assessment/Plan (1) BAN (obstructive sleep apnea): (2) Pneumonia due to COVID-19 virus: (3) Hyperlipidemia: QUALIFIERS: Hyperlipidemia type: unspecified Qualified Code(s): E78.5 - Hyperlipidemia, unspecified (4) Benign essential HTN: PLAN: 1. Acute hypoxic secondary to acute COVID-19 pneumonia Remains on 2 L oxygen, admitting chest x-ray was remarkable for bilateral pulmonary infiltrates. CTA of the chest was negative for acute PE, showed COVID-19 pneumonitis Continue on Decadron and remdesivir. Liver enzymes are improving we will continue to monitor Will another trial of Lasix 20 mg IV x1 2. Type II DM, blood sugars fairly controlled, continue on Decadron 3. Leukopenia, with lymphopenia slightly worsened, WBC count is 1.8 4. Rest of chronic medical conditions including liver cirrhosis with history of bleeding varices/hypertension/hyperlipidemia/morbid obesity/anxiety/depression/BAN -all remained stable Home meds evaluated Charges/Coding Visit Charges Inpatient E&M: 73519 Subs Hosp L2
[2021-05-17] MEDS: Furosemide 40 MG/4 ML Vial IV (11:29)
[2021-05-17] MEDS: guaiFENesin 10 ML UDC (200MG/10ML) 20 ML PO ×2 (12:02→21:57)
[2021-05-17 12:36] LABS: Pathologist Review Reviewed
[2021-05-17 13:01] LABS: Bedside Glucose 373 mg/dL (70-110)
--- NOTE | 2021-05-17 13:04 | CASEMGMT ---
Pt screened with [facility] Palliative Care Screening Tool due to strata 3, pt did not meet criteria.
[2021-05-17] MEDS: levoFLOXacin IV 500 MG/100 ML BAG 100 MG IV (16:17)
--- NOTE | 2021-05-17 18:00 | NURSING ---
PTS DIABLILTIY PAPERS HAVE BEEN SIGNED AND FAXED TO PTS DOCTOR
[2021-05-17 19:16] LABS: Bedside Glucose 371 mg/dL (70-110)
[2021-05-17] MEDS: MELATONIN 10 MG TABLET 5 MG PO (21:55)
[2021-05-17] MEDS: Atorvastatin Calcium 80 MG Tablet PO (21:55)
[2021-05-18] VITALS (11 sets, daily range): BP systolic 139–170; BP diastolic 64–81; PULSE 46–69; RESP 18–20; TEMP 36.3–36.5; O2SAT 89–95
[2021-05-18 06:25] LABS: Bedside Glucose 288 mg/dL (70-110)
[2021-05-18] MEDS: Gabapentin 100 MG Capsule PO ×2 (06:59→14:23)
[2021-05-18] MEDS: Insulin Lispro 100 UNIT/ML INSULN.PEN SC ×3 (07:00→16:14)
[2021-05-18 07:11] LABS: Bedside Glucose 232 mg/dL (70-110)
[2021-05-18 08:47] LABS: Absolute Lymphocyte Count 0.53 X10^3/uL (0.83-4.51); Absolute Neutrophil Count 2.3 X10^3/uL (2.0-7.7); Hematocrit 41.7 % (40-54); Hemoglobin 13.7 g/dL (13.0-16.5); Lymphocyte # 0.53 X10^3/ul (0.83-4.51); Lymphocyte % 16.9 % (19-41); Mean Corp Hgb Conc 32.9 g/dL (32-36); Mean Corpuscular Hgb 31.2 pg (27.0-32.0); Mean Platelet Vol. 12.6 fl (6.2-12.0); Monocyte# 0.27 X10^3/uL; Monocyte% 8.6 % (0-10); NRBC Flagged by Analyzer 0 % (0-5); Neutrophil # 2.33 X10^3/uL (2.7-7.7); Neutrophil % 74.2 % (47-70); POSITIVE DIFFERENTIAL YES; Platelet Count 134 K/mm3 (150-450); RBC Distribution Width CV 13.8 % (11.6-14.6); RBC Distribution Width SD 48.8 fl (35.1-43.9); Red Blood Count 4.39 M/mm3 (4.6-6.2); White Blood Count 3.1 K/mm3 (4.4-11.0)
[2021-05-18 08:54] LABS: Differential Indicated SCAN CRITERIA MET
[2021-05-18 09:11] LABS: ALB/GLOB Ratio 0.5 RATIO (0.9-2.4); AST(SGOT) 68 U/L (15-37); Alanine Aminotransfer ALT/SGPT 88 U/L (16-61); Albumin, Serum 2.5 g/dL (3.2-5.0); Alkaline Phosphatase 124 U/L (45-117); Anion Gap 5 (5-15); BUN 22 mg/dL (7-18); Calcium,Total 8.1 mg/dL (8.5-10.1); Chloride 105 mmol/L (98-107); Creatinine, Serum 0.49 mg/dL (0.70-1.30); EST Glomerular Filtration Rate 196 mL/min (>60); Est Glom Filt Rate - Afr Amer 237 mL/min (>60); Estimated Creatinine Clearance 202.76 ml/min; Globulin 4.6 g/dL (2.2-4.2); Glucose 247 mg/dL (74-106); Potassium 3.9 mmol/L (3.5-5.1); Protein, Total 7.1 g/dL (6.4-8.2); Sodium Level 138 mmol/L (136-145)
--- NOTE | 2021-05-18 10:02 | PCM.DC ---
Discharge Instructions Diet Discharge Diet: Low fat / Low cholesterol and 2000 mg Sodium Diet Activity Discharge Activity: Return to Normal Activity Follow Up Care Test Results: Test results from this visit will be discussed in further detail at your follow-up appointment, if applicable. Discharge Plan Admission Admit Date/Time: 05/16/21 01:04 Primary Reason for Your Visit: Acute hypoxic respiratory failure secondary to acute COVID-19 pneumonia Attending Provider: Amber Bettencourt Primary Care Provider: Tomas Holman Instructions Patient Instructions: Coronavirus Disease 2019 (COVID-19): Overview, Coronavirus Disease 2019 (COVID-19): Caring for Yourself or Others, COVID-19: Lying in a Prone Position (Proning), COVID-19 and the Flu: What's the Difference?, ED Chest Pain, Noncardiac Additional Instructions / Restrictions: You are being discharged with oxygen. Continue to use your oxygen all the time. Continue to use your incentive spirometer. Continue to remain active and eat healthy. Let your doctor know if you develop fever >101.3F or have progressive worsening shortness of breath. Follow-up with your primary care doctor and also with pulmonology to have your continued oxygen use reevaluated. Be careful of going near open flames whilst on oxygen. Complete your Decadron as prescribed. Continue to use your inhaler as needed for shortness of breath. Continue to quarantine for 20 days total from the start of your symptoms. Discharge Orders/Prescriptions Prescriptions: New guaifenesin 100 mg/5 mL Liquid 400 mg PO Q4H PRN PRN (Reason: COUGH) 7 Days Qty: 1500 RF: 0 dexamethasone 4 mg Tablet 6 mg PO DAILY 6 Days Qty: 9 RF: 0 levofloxacin 500 mg tablet 500 mg PO DAILY 7 Days Qty: 7 RF: 0 Continued furosemide [Lasix] 20 mg tablet 20 mg PO DAILY RF: 0 atorvastatin 20 MG tablet 80 mg PO QHS RF: 0 acetaminophen 500 MG tablet 500 - 1,000 mg PO Q6H PRN PRN (Reason: Pain) RF: 0 metformin 500 MG tablet,ER carlyn.retention 24 hr 1,000 mg PO BID RF: 0 Gabapentin 100 mg PO TID RF: 0 Nadolol 40 mg PO DAILY RF: 0 Omeprazole 40 mg PO DAILY RF: 0 Melatonin 5 mg PO QHS RF: 0 Farxiga 5 MG tablet 10 mg PO DAILY RF: 0 lisinopril 20 MG tablet 40 mg PO BID RF: 0 aspirin 81 MG tablet,chewable 81 mg PO DAILY@0800 RF: 0 sertraline 50 MG tablet 75 mg PO DAILY RF: 0 ezetimibe 10 MG tablet 10 mg PO DAILY RF: 0 Januvia 100 mg Tablet 100 mg PO DAILY RF: 0 Referrals / Follow Up: Tomas Holman MD [Primary Care Provider] - Within 2 Weeks Disposition Disposition (needs filled in before D/C Order can be placed): Home, Self Care
[2021-05-18] MEDS: 0.9% Saline Lock 10 ML Syringe IV ×2 (10:09→14:28)
[2021-05-18] MEDS: Furosemide 40 MG/4 ML Vial IV (10:10)
--- NOTE | 2021-05-18 10:13 | DS.PCM_ITS ---
Providers Date of Admission: 05/16/21 Date of Discharge: 05/18/21 Primary Care Physician: Dr. Tomas Holman MD Reason For Visit: COVID PNA,HYPOXIA Diagnosis Discharge Diagnosis (1) BAN (obstructive sleep apnea): Status: Chronic Code(s): G47.33 - Obstructive sleep apnea (adult) (pediatric) (2) Pneumonia due to COVID-19 virus: Status: Acute Code(s): U07.1 - COVID-19; J12.82 - Pneumonia due to coronavirus disease 2019 (3) Hyperlipidemia: Status: Chronic Code(s): E78.5 - Hyperlipidemia, unspecified Qualifiers: Hyperlipidemia type: unspecified Qualified Code(s): E78.5 - Hyperlipidemia, unspecified (4) Benign essential HTN: Status: Chronic Code(s): I10 - Essential (primary) hypertension (5) Salmonella gastroenteritis: Status: Acute Code(s): A02.0 - Salmonella enteritis Medications at Discharge Home Medications acetaminophen 500 - 1,000 mg PO Q6H PRN PRN 02/13/17 atorvastatin 80 mg PO QHS 02/13/17 metformin 1,000 mg PO BID 02/13/17 furosemide 20 mg tablet 20 mg PO DAILY 08/30/18 aspirin 81 mg PO DAILY@0800 11/13/19 ezetimibe 10 mg PO DAILY 11/13/19 lisinopril 40 mg PO BID 11/13/19 sertraline 75 mg PO DAILY 11/13/19 Gabapentin 100 mg PO TID 11/18/20 Melatonin 5 mg PO QHS 11/18/20 Nadolol 40 mg PO DAILY 11/18/20 Omeprazole 40 mg PO DAILY 11/18/20 Farxiga 10 mg PO DAILY 12/20/20 Januvia 100 mg PO DAILY 05/15/21 dexamethasone 6 mg PO DAILY 6 Days #9 tab 05/18/21 guaifenesin 400 mg PO Q4H PRN PRN 7 Days #1500 ml 05/18/21 levofloxacin 500 mg PO DAILY 7 Days #7 tab 05/18/21 Hospital Course Operations None Procedures None Summary of Care Provided Minutes Spent on Discharge: 50 Hospital Course: 46-year-old male with past medical history of hypertension, hyperlipidemia, obstructive sleep apnea, cirrhosis with history of bleeding varices, morbid obesity who comes in with complaints of cough, runny nose, shortness of breath. Patient was diagnosed with Covid on 05/09/21. His pulse ox at home was 88% prompting him to come to the emergency department. He had associated fever and chills, headache, sore throat and body aches. Patient is not vaccinated In the ED, his work-up was significant for leukopenia with lymphopenia. His chest x-ray showed bilateral pulmonary infiltrates consistent with Covid pneumonia. Patient was admitted to the [facility] floor and managed on breathing treatments and IV Decadron. He complained of diarrhea. Stool for enteric panel was positive for Salmonella. He was started on Levaquin. Patient slowly continued to improve. He was on 3 L initially. However he was evaluated for home oxygen and did not qualify. He was discharged to complete 10 days of Decadron and 20 days of current time. He was also discharged to complete 10 days of Levaquin. Physical Exam Narrative General: Alert, Oriented x3, Cooperative, No apparent distress, on 2-3 L of oxygen HEENT: Atraumatic, PERRLA, EOMI, Normocephalic Oral: Moist Mucosa Neck: Supple Lungs: Normal air movement, Diminished Cardiovascular: Regular rate, Regular Rhythm, Normal S1, Normal S2, No murmurs Abdomen: Bowel Sounds Present, Soft, Non Tender, Non-Distended, No Hepato-splen omegaly Extremities: No edema Weight / BMI Weight Weight: 141.9 kg Body Mass Index (BMI) 43.9 ABG / Lab / Microbiology Data Result Diagrams: 05/18/21 08:30 05/18/21 08:30 Laboratory: Laboratory Results - last 24 hr 05/17/21 06:20: Diff Path Review Reviewed 05/17/21 11:24: POC Glucose 373 H 05/17/21 16:10: POC Glucose 371 H 05/17/21 21:43: POC Glucose 288 H 05/18/21 06:59: POC Glucose 232 H 05/18/21 08:30: WBC 3.1 L, RBC 4.39 L, Hgb 13.7, Hct 41.7, MCV 95.0 H, MCH 31.2, MCHC 32.9, RDW Std Deviation 48.8 H, RDW Coeff of Ken 13.8, Plt Count 134 L, MPV 12.6 H, Immature Gran % (Auto) 0.300, Neut % (Auto) 74.2 H, Lymph % (Auto) 16.9 L, [place] % (Auto) 8.6, Eos % (Auto) 0.0, Baso % (Auto) 0.0, Absolute Neuts (auto) 2.3, Absolute Lymphs (auto) 0.53 L, Nucleated RBC % 0, Diff Path Review January foll 05/18/21 08:30: Sodium 138, Potassium 3.9, Chloride 105, Carbon Dioxide 28.0, Anion Gap 5, BUN 22 H, Creatinine 0.49 L, Estim Creat Clear Calc 202.76, Est GFR (MDRD) Af Amer 237, Est GFR (MDRD) Non-Af 196, BUN/Creatinine Ratio 45.0 H, Glucose 247 H, Calcium 8.1 L, Total Bilirubin 0.90, AST 68 H, ALT 88 H, Alkaline Phosphatase 124 H, Total Protein 7.1, Albumin 2.5 L, Globulin 4.6 H, Albumin/Globulin Ratio 0.5 L Microbiology: Microbiology 05/16/21 18:40 Stool Enteric Bacteriology - Final Salmonella Sp. 05/16/21 07:10 Mucosa - Nasopharyngeal Respiratory Panel (PCR) - Final 05/16/21 03:15 Urine, Clean Catch Legionella Antigen - Final 05/16/21 03:15 Urine, Clean Catch Streptococcus pneumoniae Antigen (M - Final D/C Instructions Discharge Diet: Low fat / Low cholesterol and 2000 mg Sodium Diet Meaningful Use Info Meaningful Use Diagnoses (Choose all that apply): None applicable Discharge Plan Admission Admit Date/Time: 05/16/21 01:04 Primary Reason for Your Visit: Acute hypoxic respiratory failure secondary to acute COVID-19 pneumonia Attending Provider: Amber Bettencourt Primary Care Provider: Tomas Holman Instructions Patient Instructions: Coronavirus Disease 2019 (COVID-19): Overview, Coronavirus Disease 2019 (COVID-19): Caring for Yourself or Others, COVID-19: Lying in a Prone Position (Proning), COVID-19 and the Flu: What's the Difference?, ED Chest Pain, Noncardiac Additional Instructions / Restrictions: Continue to use your incentive spirometer. Continue to remain active and eat healthy. Let your doctor know if you develop fever >101.3F or have progressive worsening shortness of breath. Follow-up with your primary care doctor after your quarantine. Complete your Decadron as prescribed. Continue to use your inhaler as needed for shortness of breath. Continue to quarantine for 20 days total from the start of your symptoms. Discharge Orders/Prescriptions Prescriptions: New guaifenesin 100 mg/5 mL Liquid 400 mg PO Q4H PRN PRN (Reason: COUGH) 7 Days Qty: 1500 RF: 0 dexamethasone 4 mg Tablet 6 mg PO DAILY 6 Days Qty: 9 RF: 0 levofloxacin 500 mg tablet 500 mg PO DAILY 7 Days Qty: 7 RF: 0 Continued furosemide [Lasix] 20 mg tablet 20 mg PO DAILY RF: 0 atorvastatin 20 MG tablet 80 mg PO QHS RF: 0 acetaminophen 500 MG tablet 500 - 1,000 mg PO Q6H PRN PRN (Reason: Pain) RF: 0 metformin 500 MG tablet,ER carlyn.retention 24 hr 1,000 mg PO BID RF: 0 Gabapentin 100 mg PO TID RF: 0 Nadolol 40 mg PO DAILY RF: 0 Omeprazole 40 mg PO DAILY RF: 0 Melatonin 5 mg PO QHS RF: 0 Farxiga 5 MG tablet 10 mg PO DAILY RF: 0 lisinopril 20 MG tablet 40 mg PO BID RF: 0 aspirin 81 MG tablet,chewable 81 mg PO DAILY@0800 RF: 0 sertraline 50 MG tablet 75 mg PO DAILY RF: 0 ezetimibe 10 MG tablet 10 mg PO DAILY RF: 0 Januvia 100 mg Tablet 100 mg PO DAILY RF: 0 Referrals / Follow Up: Tomas Holman MD [Primary Care Provider] - 05/31/21 8:40 am Disposition Disposition (needs filled in before D/C Order can be placed): Home, Self Care Charges/Coding Visit Charges Inpatient E&M: 22330 Disch Hosp
[2021-05-18] MEDS: dexAMETHasone 4 MG Tablet 6 MG PO (10:20)
[2021-05-18] MEDS: Nadolol 40 MG Tablet PO (10:20)
[2021-05-18] MEDS: Furosemide 20 MG Tablet PO (10:21)
[2021-05-18] MEDS: Pantoprazole Sodium 20 MG Tablet PO (10:21)
[2021-05-18] MEDS: Enoxaparin 40 MG/0.4 ML Syringe SC (10:21)
[2021-05-18] MEDS: Aspirin 81 MG TAB.CHEW PO (10:21)
[2021-05-18] MEDS: Lisinopril 40 MG Tablet PO (10:22)
[2021-05-18] MEDS: Sertraline 50 MG Tablet 75 MG PO (10:25)
[2021-05-18] MEDS: levoFLOXacin IV 500 MG/100 ML BAG 100 MG IV (12:57)
[2021-05-18 13:31] LABS: Bedside Glucose 390 mg/dL (70-110)
[2021-05-18 19:31] LABS: Bedside Glucose 420 mg/dL (70-110)
[2021-05-19 13:03] LABS: Pathologist Review Reviewed
--- NOTE | 2021-05-19 15:46 | CASEMGMT ---
LEEANNA SALCEDO COVID Follow Up Phone Call: LACE: 11 Strata: 3 Call Date: 05/19/21 Discharge Date: 05/18/21 Time of Call: 1543 Duration: <1 min Admitting Dx: COVID PNA LEEANNA SALCEDO attempted to complete follow up phone call after recent hospitalization for COVID 19. Pt has a google account and there was no answer nor voicemail to leave a message.
== END 2021-05-18 16:42 | disposition home or self-care (01) | DRG 177 ==
LOC: ED 23:49 → MS3 05-16 01:44
PROVIDERS: Admitting Provider Family Medicine; Emergency Provider Emergency Medicine; PCP Family Medicine; Visit Provider Internal Medicine
DX: U07.1 COVID-19 (principal); J96.01 Acute respiratory failure with hypoxia; J12.82 Pneumonia due to coronavirus disease 2019; Z68.41 Body mass index [BMI] 40.0-44.9, adult; A02.0 Salmonella enteritis; I10 Essential (primary) hypertension; E78.5 Hyperlipidemia, unspecified; F41.9 Anxiety disorder, unspecified; E11.9 Type 2 diabetes mellitus without complications; G47.33 Obstructive sleep apnea (adult) (pediatric); E66.01 Morbid (severe) obesity due to excess calories; F32.9 Major depressive disorder, single episode, unspecified; K74.60 Unspecified cirrhosis of liver; D69.6 Thrombocytopenia, unspecified; K21.9 Gastro-esophageal reflux disease without esophagitis; Z79.899 Other long term (current) drug therapy; Z79.82 Long term (current) use of aspirin; Z79.84 Long term (current) use of oral hypoglycemic drugs; Z87.891 Personal history of nicotine dependence; D72.810 Lymphocytopenia
CPT/HCPCS: 36415; 71045; 71275; 80053; 82728; 82962; 83615; 83735; 83880; 84145; 85025; 85379; 86140; 87449; 87506; 87633; 93005; 99285; J7030; J7050; Q9967; A4216; J1940

== ENCOUNTER 2022-12-02 13:53 | Emergency (ER) | payer BC, SELFPAY ==
[2022-12-02 13:54] VITALS: BP 169/70; PULSE 71; RESP 18; TEMP 36.1; O2SAT 95
--- NOTE | 2022-12-02 14:10 | RAD_ITS ---
EXAM: XR CHEST, 2 VIEWS CLINICAL INDICATION: cough TECHNIQUE: Frontal and lateral views of the chest. This report was created using [employer] report generation technology. COMPARISON: 05.15.21 FINDINGS: LUNGS AND PLEURAL SPACES: Unremarkable. No consolidation or edema. No pneumothorax. No effusion. HEART: Unremarkable. Cardiac silhouette not enlarged. MEDIASTINUM: Central airways and mediastinal contour are unremarkable. BONES/JOINTS: Unremarkable. SOFT TISSUES: Unremarkable. RAD/Chest PA and Lateral IMPRESSION: No radiographic evidence of acute cardiopulmonary disease. Electronically Signed: Catrachito Callahan MD at 15:09 EDT ,
--- NOTE | 2022-12-02 14:13 | EDS_ITS ---
HPI History of Present Illness Chief Complaint: Cough Narrative Narrative: 47-year-old male, non-smoker, history of obstructive sleep apnea presents with cough and blood-tinged sputum over the last 2 days. He states he has been coughing for the last week, denies any fevers or chills, no nausea or vomiting. He states his sister did a home COVID test twice on him which were negative. He does have remote history of COVID-pneumonia. He states that he has history of esophageal varices, and wants to make sure that everything is okay. He does not take blood thinners. He denies hematemesis but was concerned because he had red sputum production over the last 2 days. He denies shortness of breath or leg swelling. No chest pain or other symptoms. [facility] Medical History Anxiety Anxiety Benign essential HTN Bleeding esophageal varices Borderline diabetes Chest pain Cirrhosis CPAP (continuous positive airway pressure) dependence Diabetes Elevated CPK Flash pulmonary edema Hyperlipidemia Hypertension Hypertensive emergency Obesity Sleep apnea Thrombocytopenia Home Medications acetaminophen 500 mg tablet 500 - 1,000 mg PO Q6H PRN PRN Pain 02/13/17 [History Last Taken 08/17/18 500 - 1000 MG] atorvastatin 20 mg tablet 80 mg PO QHS cholesterol 02/13/17 [History Last Taken 05/14/21] metformin 500 mg 24 hr tablet,extended release 1,000 mg PO BID diabetes 02/13/17 [History Last Taken 05/15/21] furosemide 20 mg tablet (Lasix) 20 mg PO DAILY diuretic 08/30/18 [History Last Taken 05/15/21] aspirin 81 mg chewable tablet 81 mg PO DAILY@0800 heart health 11/13/19 [History Last Taken 05/15/21] ezetimibe 10 mg tablet 10 mg PO DAILY cholesterol 11/13/19 [History Last Taken 05/15/21] lisinopril 20 mg tablet 40 mg PO BID htn 11/13/19 [History Last Taken 05/15/21] sertraline 50 mg tablet 100 mg PO DAILY anxiety 11/13/19 [History Last Taken 05/15/21] Gabapentin 100 mg PO TID joint pain 11/18/20 [History Last Taken 05/15/21] Melatonin 5 mg PO QHS sleep 11/18/20 [History Last Taken 05/14/21] Nadolol 40 mg PO DAILY HTN 11/18/20 [History Last Taken 05/15/21] Omeprazole 40 mg PO DAILY GERD 11/18/20 [History Last Taken 05/15/21] Farxiga 10 mg PO DAILY Check with primary doctor 12/20/20 [History Last Taken 05/15/21] sitagliptin phosphate 100 mg tablet (Januvia) 100 mg PO DAILY diabetes 05/15/21 [History Last Taken 05/15/21] glipizide 5 mg tablet 5 mg PO BID 08/09/22 [History Last Taken Unknown] pioglitazone 30 mg tablet (Actos) 30 mg PO DAILY 08/09/22 [History Last Taken Unknown] albuterol sulfate 90 mcg/actuation aerosol inhaler (Ventolin HFA) 1 - 2 puff inhalation Q4H PRN PRN Wheezing #1 ea 12/02/22 [Rx Last Taken Unknown] Allergy/AdvReac Type Severity Reaction Status Date / Time codeine AdvReac Other Verified 12/02/22 13:56 Family History Mother COPD (chronic obstructive pulmonary disease) Father COPD (chronic obstructive pulmonary disease) CVA (cerebral vascular accident) Hypertension Surgical History Hx of umbilical hernia repair S/P inguinal hernia repair S/P ORIF (open reduction internal fixation) fracture Social History household members: none Smoking Status: Former smoker how long ago did patient quit smoking: Prior 1 pack/week starting in his 20s, stopped 10-12 years ago. alcohol intake: never substance use type: does not use ROS ROS ED ROS Narrative Constitutional: No fever, no chills. HEENT: No sore throat. No neck pain. No loss of vision. No rhinorrhea. Cardiovascular: No chest pain. No palpitations. No pedal edema. Respiratory: Positive cough, red sputum production. No shortness of breath. Abdominal: No abdominal pain. No nausea. No vomiting. No hematemesis. Genitourinary: No dysuria. No hematuria. Musculoskeletal: No myalgias. No arthralgias. Neurologic: No headaches. No dizziness. No lightheadedness. Skin: No rash. No change in color. Psychiatric: No depression. No anxiety. EXAM Physical Exam Narrative Exam Narrative: Afebrile. Vital signs noted. HEENT: Normocephalic. Atraumatic. PERRL, EOMI. Neck soft and supple. No point tenderness or step off. Airway patent. No bleeding in posterior pharynx. Cardiovascular: Regular rate and rhythm. No murmurs, rubs, or gallops appreciated. Respiratory: No tachypnea. Positive expiratory wheezing bilateral lung grimes. No distress. Gastrointestinal: Abdomen soft, nontender, with normoactive bowel sounds. No rebound or guarding. Neurological: Awake. Alert. Nonfocal, nonlateralizing. Skin: No rash. Normal color. No pallor. Musculoskeletal: No pedal edema. Full range of motion extremities. Const Vital Signs: 12/02/22 13:54 12/02/22 14:21 12/02/22 14:24 Temperature 97 F L Temperature Source Temporal Pulse Rate 71 72 Respiratory Rate 18 18 Respiratory Effort Normal Respiratory Depth Normal Respiratory Pattern Normal Normal Blood Pressure 169/70 H Blood Pressure Mean 103 Pulse Ox 95 Oxygen Delivery Method Room Air Room Air MDM MDM MDM Narrative Medical decision making narrative: I explained to the patient that his varices are from a different source, and he would have more hematemesis than coughing up blood-tinged sputum. Pulse ox is 95% on room air without evidence of hypoxia. He was given a DuoNeb aerosolized treatment and chest x-ray in 2 views was obtained and interpreted by myself. On my interpretation, I see no evidence of pneumonia or pneumothorax. I also reviewed the radiology report which confirms my independent interpretation. I do not feel antibiotics are indicated. This was discussed with the patient and his sister. His cough is only been ongoing for 1 week. I do feel that he has more of a bronchitis with bronchospasm. He was written a prescription for an albuterol MDI and told to follow-up with his primary care provider. As he has n ot had gross hemoptysis here in the emergency department or even by history, I do feel he can be discharged safely home with follow-up. Return instructions to the emergency department were reviewed. Disposition is discharged home in stable condition. Radiography Chest X-Ray - ED: 2 View and Read by ED Physician Diagnostic Testing: Clinical Impression(s) from Imaging Studies Chest X-Ray 12/02/22 14:10 IMPRESSION: No radiographic evidence of acute cardiopulmonary disease. Electronically Signed: Catrachito Callahan MD at 15:09 EDT , Discharge Plan Triage Chief Complaint: Cough ED Provider: Hernesto Mejia Dx/Rx/DC Orders Clinical Impression: Cough, Bronchitis with bronchospasm, Blood-tinged sputum Instructions: ED Bronchitis with Wheezing (Adult), ED Hemoptysis Prescriptions: New albuterol sulfate [Ventolin HFA] 90 mcg/actuation HFA aerosol inhaler 1 - 2 puff inhalation Q4H PRN PRN (Reason: Wheezing) Qty: 1 0RF No Action furosemide [Lasix] 20 mg tablet 20 mg PO DAILY atorvastatin 20 MG tablet 80 mg PO QHS acetaminophen 500 MG tablet 500 - 1,000 mg PO Q6H PRN PRN (Reason: Pain) metformin 500 MG tablet,ER carlyn.retention 24 hr 1,000 mg PO BID Gabapentin 100 mg PO TID Nadolol 40 mg PO DAILY Omeprazole 40 mg PO DAILY Melatonin 5 mg PO QHS Farxiga 5 MG tablet 10 mg PO DAILY pioglitazone [Actos] 30 mg Tablet 30 mg PO DAILY glipizide 5 mg Tablet 5 mg PO BID lisinopril 20 MG tablet 40 mg PO BID aspirin 81 MG tablet,chewable 81 mg PO DAILY@0800 Label Comments: states was not told to stop for surgery sertraline 50 MG tablet 100 mg PO DAILY ezetimibe 10 MG tablet 10 mg PO DAILY Januvia 100 mg Tablet 100 mg PO DAILY Primary Care Provider: Tomas Holman Referrals: Tomas Holman MD [Primary Care Provider] - 3-5 Days if not improving Disposition Disposition: Home, Self Care
[2022-12-02 14:18] VITALS: BMI 42.6
[2022-12-02 14:21] VITALS: O2SAT 96
[2022-12-02] MEDS: Ipratropium/Albuterol Sulfate 3 ML AMPUL.NEB INHALATION (14:22)
[2022-12-02 14:24] VITALS: PULSE 72; RESP 18
[2022-12-02 15:26] VITALS: PULSE 77; RESP 18; O2SAT 94
== END 2022-12-02 15:26 | disposition home or self-care (01) ==
PROVIDERS: Emergency Provider Emergency Medicine; PCP Family Medicine; Visit Provider Emergency Medicine
DX: R05.9 Cough, unspecified (principal); J40 Bronchitis, not specified as acute or chronic; R04.2 Hemoptysis; G47.30 Sleep apnea, unspecified; Z87.891 Personal history of nicotine dependence; Z86.16 Personal history of COVID-19
CPT/HCPCS: 71046; 94640; 99282

== ENCOUNTER 2023-02-13 08:23 | Outpatient (RCR) | payer OTHER, SELFPAY ==
--- NOTE | 2023-02-15 09:48 | HP.OTFCE_ITS ---
Floor (Occasional 1-33% of Day): 50# Floor (Frequent 34-66% of Day): 25# Floor (Constant 67-100% of Day): 10# Floor PDL: Medium Knee (Occasional 1-33% of Day): 50# Knee (Frequent 34-66% of Day): 25# Knee (Constant 67-100% of Day): 10# Knee PDL: Medium Waist (Occasional 1-33% of Day): 50# Waist (Frequent 34-66% of Day): 25# Waist (Constant 67-100% of Day): 10# Waist PDL: Medium Shoulder (Occasional 1-33% of Day): 35# Shoulder (Frequent 34-66% of Day): 18# Shoulder (Constant 67-100% of Day): 8# Shoulder PDL: Light-Medium Overhead (Occasional 1-33% of Day): 25# Overhead (Frequent 34-66% of Day): 10# Overhead (Constant 67-100% of Day): NA Overhead PDL: Light Comments: PHYSICAL DEMAND LEVEL FOR Floor, Knee, Waist level lifts MEDIUM. PHYSICAL DEMAND LEVEL FOR shoulder lift LIGHT MEDIUM. PHYSICAL DEMAND LEVEL FOR overhead lift Light Bending: Frequent Ability (34-66% of day) Squatting: Occasional Ability (1-33% of day) Kneeling: No Ablility (0% of day) Reaching out: Constant Ability (67-100% of day) Comments: while sitting Reaching up: Constant Ability (67-100% of day) Comments: while sitting Sitting: Constant Ability (67-100% of day) Walking: Occasional Ability (1-33% of day) Standing: Occasional Ability (1-33% of day) Duration Sedentary Sedentary Light Light Light Medium Medium Medium Heavy Very Heavy Heavy Occasional (0-33% of day) Frequent (34-66% of day) Constant (67-100% of day) 10 # Negligible Negligible 15 # 8 # Negligible 20 # 10# Negli. 35 # 18 # 7 # 50 # 25 # 10 # 75 # 100 # >100 # 38 # 50 # >50 # 15 # 20 # >20 # Weight:: 147.418 kg Hand Dominance: right Medical History Including Restrictions: This 47 year old male is seen for FEC due to concerns with standing at work. pt states he has had difficulty with leg weakness and pain since a fall about two years ago. pt states he is contacting [employer] for ankle brace and does have bilateral knee braces he will wear at times. 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 pt does the recommended ex. daily Diagnoses: DMII dx 2018 tasia controlled with medication/diet. fatty liver disease. cirrhosis of the liver. hernia sx Symptoms: bilateral leg weakness. bilateral leg pain Pain: pt states current pain 0/10. pain increases in bilateral LE after on legs for about an hour. pt states he does use pain patches to decrease bilateral knee pain. pt reported bilateral knee pain following assessment 03/26. Work History: [employer]: pt has been employed for 30+ years. 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 Pt is worried his employment is getting rid of the chairs/stools. pt is worried about his leg pain with standing- 8 hours working 5 days a week 2 10 min breaks and 30 min lunch. pt states work requirements he is unsure- feels lift requirement is maybe 25# at most. Behavioral: pt cooperative throughout assessment. ADLS: Pt lives in a apt. alone and single floor apts. pt states he is IND. with all ADLs and IADLs. pt does own cooking, cleaning, laundry. pt does not drive- (co-worker picks him up daily). pt does own grocery shopping. pt has health jv baseball coach 1x week to increase healthy lifestyle Physical Examination: pt demo with Kyphosis shoulders rolled forward- noted everted right foot with ambulation (states he is getting brace for). pt states he does have bilateral knee braces he will wear at times. ROM: pt demo functional ROM grossly throughout. No deficits noted Strength: micro fet2 peak force resistance. shoulder flexion right 16# left 14#. shoulder extension right 26# left 29#. biceps right 30# left 30#. triceps right 25# left 29#. hip flexion right 23# left 23#. Quadricep right 27# left 21#. Hamstring right 21# left 23# Right Bonded Structures Repairer Strength Average: 55.33 Right Bonded Structures Repairer Strength Percentile: <1.1% Left Bonded Structures Repairer Strength Average: 55.00 Left Bonded Structures Repairer Strength Percentile: <.8% Right Lateral Pinch Average: 11.33 Right Lateral Pinch Percentile: 10% Left Lateral Pinch Average: 14.66 Left Lateral Pinch Percentile: 10% Right Tripod Pinch Average: 17.33 Right Tripod Pinch Percentile: 25% Left Tripod Pinch Average: 16.66 Left Tripod Pinch Percentile: 25% Sensation: denies Fine Motor: denies Balance: The Functional Reach Test is a single item test. developed as a quick screen for balance. problems in older adults. Interpretation: A score of 6 or less indicates a significant. increased risk for falls. A score between 6-10 inches indicates a. moderate risk for falls. Mr. Connolly reach 11.5. age 41-69yrs 14.9 ? 2.2. below average for his age. Pt demo no LOB during assessment. Bending: pt demo the ability to bend forward 3/3x, 10/10x, 10/10x rapidly. pt heart rate 76. following rapidly heart rate 90. pt can bend forward on frequent ability Squatting: pt demo the ability to squat 3/3x, 10/10, and 10/10x rapidly. heart rate 79. pt use of hands to push off quads at times throughout task ( limited plan of motion). right knee pain 7/10 and left knee pain 6/10. pt can squat on a occasional ability Kneeling: pt attempted to kneel with use of external support. Pt was unable to perform due to increase in bilateral knee pain 7/10 and limited mobility. pt unable to knee safely Reaching out/up: pt demo the ability to reach up/out 3/3x, 10/10, and 10/10x rapidly. heart rate ranged from 64 to 59. pt completed while standing-. pt can reach up/out on constant ability while sitting Walking: pt right ankle eversion noted with antalgic gait pattern. pts step length shortened decreasing pts gait speed. pt ambulated 4 min prior to needing to sit down. pt ambulated total distance 420 feet with multiple rest periods. pt can walk on occasional ability. Standing: pt demo the ability to stand for 3 min. pt reported right leg pain 7/10 and right leg pain 4 /10. pt completed standing for 4min 25 sec. pt can stand on occasional ability Sitting: pt demo the ability to sit for 40 min with no apparent or expressed discomfort. pt can sit on constant ability Climbing Stairs: pt ascended 10 steps with use of bilateral hand rails with single leg step-up. pt descended 10 steps with use of handrails and single leg step down. pt demo fair safety while performing steps. Floor Lift: pt demo the ability to lift 50# maximally from this level with fair lifting mechanics. pt does not bend knees and lifts with back and arms Knee Lift: pt demo the ability to lift 50# maximally from this level with fair lifting mechanics. pt does not bend knees and lifts with back and arm Waist Lift: pt demo the ability to lift 50# maximally from this level with fair lifting mechanics. pt does not bend knees and lifts with back and arm Shoulder Lift: pt demo the ability to lift 35# maximally from this level with fair lifting mechanics. Overhead Lift: pt demo the ability to lift 25# maximally from this level with fair lifting mechanics. Carryin# FOR 40 feet pt was SOB following and heart rate 100 Comments: pt ambulates carry 25# with antalgic gait pattern and right ankle inverted. pt reported increase in bilateral knee pain from 0/10 to 7/10. pt put forth good effort in performing all tasks.
--- NOTE | 2023-02-15 09:48 | HP.OTFCE.D ---
FCE D/C Summary - Discharge EDD LIAOPATRICIOADRIANNE was seen for a one time visit for an FCE on 02/13/23 and is discharged.
== END 2023-02-13 19:00 | disposition home or self-care (01) ==
LOC: OT 08:23
PROVIDERS: PCP Family Medicine; Visit Provider Family Medicine
DX: M79.604 Pain in right leg (principal); M79.605 Pain in left leg; R29.898 Other symptoms and signs involving the musculoskeletal system; R53.1 Weakness; F79 Unspecified intellectual disabilities; E66.01 Morbid (severe) obesity due to excess calories
CPT/HCPCS: 97750

== ENCOUNTER 2023-06-25 13:51 | Emergency (ER) | payer BC, MEDICAID, SELFPAY ==
[2023-06-25 13:51] VITALS: BP 179/71; PULSE 78; RESP 14; TEMP 36.4; O2SAT 98; BMI 44.6
--- NOTE | 2023-06-25 14:15 | EKG12_ITS ---
Test Reason : CP Blood Pressure : / mmHG Vent. Rate : 065 BPM Atrial Rate : 065 BPM P-R Int : 132 ms QRS Dur : 114 ms QT Int : 434 ms P-R-T Axes : 037 045 059 degrees QTc Int : 451 ms Normal sinus rhythm Normal ECG Confirmed by JAKOB HARMON, GLORAI ([id number]), general expeditor TAYLOR CAMARILLO ([id number]) on 06/27/2023 10:42:54 AM Referred By: BB/PC Confirmed By:GLORIA ROBERT MD
--- NOTE | 2023-06-25 14:25 | RAD_ITS ---
HISTORY: chest pain. TECHNIQUE: XR Chest 1 View. COMPARISON: 12/02/2022. FINDINGS: CARDIOMEDIASTINAL BORDERS: Cardiac silhouette moderately enlarged. Mediastinal contour unremarkable. LUNGS: Low lung volumes with mild linear bibasilar opacities. PLEURA: No pleural effusion or pneumothorax seen. OSSEOUS STRUCTURES: Degenerative change. RAD/Chest 1 View (Portable) IMPRESSION: Enlargement of the cardiac silhouette compared to prior which may be secondary to pericardial effusion rather than cardiomyopathy. Mild bibasilar atelectasis. Electronically Signed: Elizabeth London MD at 15:27 EDT ,
--- NOTE | 2023-06-25 14:28 | ED.VIS.CHEST ---
HPI History of Present Illness Chief Complaint: Chest Pain Narrative Narrative: Presents with chest pain. It started about 3 hours ago lasted about an hour now. It was aching. He has no fevers or chills. No radiation of the pain. No back pain or tearing sensation. No pleuritic component. No lower extremity edema or calf pain. [facility] Medical History (Updated 06/25/23 @ 15:[address] Jeffrey Alba MD) Anxiety Anxiety Benign essential HTN Bleeding esophageal varices Borderline diabetes Chest pain Cirrhosis CPAP (continuous positive airway pressure) dependence Diabetes Diabetes mellitus, type II Elevated CPK Flash pulmonary edema Hyperlipidemia Hypertension Hypertensive emergency Obesity Sleep apnea Thrombocytopenia Home Medications acetaminophen 500 mg tablet 500 - 1,000 mg PO Q6H PRN PRN Pain 02/13/17 [History Last Taken 08/17/18 500 - 1000 MG] atorvastatin 20 mg tablet 80 mg PO QHS cholesterol 02/13/17 [History Last Taken 05/14/21] metformin 500 mg 24 hr tablet,extended release 1,000 mg PO BID diabetes 02/13/17 [History Last Taken 05/15/21] furosemide 20 mg tablet (Lasix) 20 mg PO DAILY diuretic 08/30/18 [History Last Taken 05/15/21] aspirin 81 mg chewable tablet 81 mg PO DAILY@0800 heart health 11/13/19 [History Last Taken 05/15/21] ezetimibe 10 mg tablet 10 mg PO DAILY cholesterol 11/13/19 [History Last Taken 05/15/21] lisinopril 20 mg tablet 40 mg PO BID htn 11/13/19 [History Last Taken 05/15/21] sertraline 50 mg tablet 100 mg PO DAILY anxiety 11/13/19 [History Last Taken 05/15/21] Gabapentin 100 mg PO TID joint pain 11/18/20 [History Last Taken 05/15/21] Melatonin 5 mg PO QHS sleep 11/18/20 [History Last Taken 05/14/21] Nadolol 40 mg PO DAILY HTN 11/18/20 [History Last Taken 05/15/21] Omeprazole 40 mg PO DAILY GERD 11/18/20 [History Last Taken 05/15/21] Farxiga 10 mg PO DAILY Check with primary doctor 12/20/20 [History Last Taken 05/15/21] sitagliptin phosphate 100 mg tablet (Januvia) 100 mg PO DAILY diabetes 05/15/21 [History Last Taken 05/15/21] glipizide 5 mg tablet 5 mg PO BID 08/09/22 [History Last Taken Unknown] pioglitazone 30 mg tablet (Actos) 30 mg PO DAILY 08/09/22 [History Last Taken Unknown] albuterol sulfate 90 mcg/actuation aerosol inhaler (Ventolin HFA) 1 - 2 puff inhalation Q4H PRN PRN Wheezing #1 ea 12/02/22 [Rx Last Taken Unknown] Allergy/AdvReac Type Severity Reaction Status Date / Time codeine AdvReac Other Verified 06/25/23 13:52 Family History Mother COPD (chronic obstructive pulmonary disease) Father COPD (chronic obstructive pulmonary disease) CVA (cerebral vascular accident) Hypertension Surgical History Hx of umbilical hernia repair S/P inguinal hernia repair S/P ORIF (open reduction internal fixation) fracture Social History household members: none Smoking Status: Former smoker how long ago did patient quit smoking: Prior 1 pack/week starting in his 20s, stopped 10-12 years ago. alcohol intake: never substance use type: does not use ROS ROS ED ROS Narrative All systems negative except as indicated General: No fever Eyes: No visual changes ENT: No upper airway congestion, normal voice Neck: No neck pain Cardiovascular: Chest pain as in HPI Respiratory: No shortness of breath or cough Gastrointestinal: No abdominal pain, nausea vomiting or diarrhea Genitourinary: No dysuria Musculoskeletal: Denies myalgias no difficulty with ambulation Skin: No rash Neurological: No memory loss, confusion or any focal weakness Psych: No recent behavioral changes Hematologic: No easy bleeding or easy bruising EXAM Physical Exam Narrative Exam Narrative: Physical exam General: Well nourished, Well developed, No Acute Distress Head: Normocephalic, Atraumatic Eyes: Conjunctiva not pale ENT: Moist mucous membranes Neck: Supple, Nontender, No lymphadenopathy Cardiovascular: Regular rate, Regular rhythm Respiratory: No distress, CTA bilaterally Abdomen: Soft, Nontender, Nondistended Back: Nontender, Normal Inspection. Negative for: CVA tenderness Extremities: Nontender, No edema Skin: Normal color, No rash Neurological: Alert, Normal Strength, Normal Sensation Psychological: Normal affect Const Vital Signs: 06/25/23 13:51 06/25/23 15:05 Temperature 97.6 F L Temperature Source Temporal Pulse Rate 78 Respiratory Rate 14 Blood Pressure 179/71 H Blood Pressure Mean 107 Pulse Ox 98 Oxygen Delivery Method Room Air Room Air MDM MDM MDM Narrative Medical decision making narrative: Has some risk factors although he has had multiple episodes of this chest pain before and he has had negative work-ups has had a recent stress test. I am not worried about a pulmonary embolism, he has no signs or symptoms and he is asymptomatic. Ruled out pneumonia, pneumothorax, patient is asymptomatic I believe he can be discharged to follow-up with cardiology. A delta troponin is pending however its 2 hours from now therefore I will turn patient over to the oncoming ED physician. EKG: Sinus rhythm with a rate of 65. Normal MO and QTc intervals. No ischemic changes. Interpreted by emergency doctor Chest x-ray: 1 view chest x-ray read by me as normal Lab Data Labs: Laboratory Results - last 24 hr 06/25/23 14:20 WBC 3.4 L RBC 3.60 L Hgb 11.7 L Hct 35.7 L MCV 99.2 H MCH 32.5 H MCHC 32.8 RDW Std Deviation 51.5 H RDW Coeff of Ken 14.0 Plt Count 144 L MPV 10.9 Immature Gran % (Auto) 0.300 Neut % (Auto) 66.3 Lymph % (Auto) 20.1 [place] % (Auto) 7.1 Eos % (Auto) 5.9 H Baso % (Auto) 0.3 Absolute Neuts (auto) 2.3 Absolute Lymphs (auto) 0.68 L Nucleated RBC % 0 Sodium 139 Potassium 3.9 Chloride 106 Carbon Dioxide 27.0 Anion Gap 6 BUN 13 Creatinine 0.64 L Estim Creat Clear Calc 151.97 Est GFR (MDRD) Af Amer 173 Est GFR (MDRD) Non-Af 143 BUN/Creatinine Ratio 20.4 H Glucose 183 H Calcium 8.3 L Troponin I High Sens 26 Discharge Plan Triage Chief Complaint: Chest Pain ED Provider: Jeffrey Alba Dx/Rx/DC Orders Clinical Impression: History of hypertension, Chest pain Prescriptions: No Action furosemide [Lasix] 20 mg tablet 20 mg PO DAILY atorvastatin 20 MG tablet 80 mg PO QHS acetaminophen 500 MG tablet 500 - 1,000 mg PO Q6H PRN PRN (Reason: Pain) metformin 500 MG tablet,ER carlyn.retention 24 hr 1,000 mg PO BID Gabapentin 100 mg PO TID Nadolol 40 mg PO DAILY Omeprazole 40 mg PO DAILY Melatonin 5 mg PO QHS Farxiga 5 MG tablet 10 mg PO DAILY pioglitazone [Actos] 30 mg Tablet 30 mg PO DAILY glipizide 5 mg Tablet 5 mg PO BID lisinopril 20 MG tablet 40 mg PO BID aspirin 81 MG tablet,chewable 81 mg PO DAILY@0800 Patient Comments: states was not told to stop for surgery sertraline 50 MG tablet 100 mg PO DAILY ezetimibe 10 MG tablet 10 mg PO DAILY Januvia 100 mg Tablet 100 mg PO DAILY albuterol sulfate [Ventolin HFA] 90 mcg/actuation HFA aerosol inhaler 1 - 2 puff inhalation Q4H PRN PRN (Reason: Wheezing) Qty: 1 0RF Primary Care Provider: Tomas Holman Referrals: Maximo Shoemaker MD [Med Staff - Active Staff] - 3-5 Days Tomas Holman MD [Primary Care Provider] - Disposition Disposition: Home, Self Care
[2023-06-25 14:33] LABS: Absolute Lymphocyte Count 0.68 X10^3/uL (0.83-4.51); Absolute Neutrophil Count 2.3 X10^3/uL (2.0-7.7); Basophil# 0.01 X10^3/uL; Basophil% 0.3 % (0-1); Eosinophils% 5.9 % (0-5); Hematocrit 35.7 % (40-54); Hemoglobin 11.7 g/dL (13.0-16.5); Lymphocyte # 0.68 X10^3/ul (0.83-4.51); Lymphocyte % 20.1 % (19-41); Mean Corp Hgb Conc 32.8 g/dL (32-36); Mean Corpuscular Hgb 32.5 pg (27.0-32.0); Mean Corpuscular Volume 99.2 fL (80-94); Mean Platelet Vol. 10.9 fl (6.2-12.0); Monocyte# 0.24 X10^3/uL; Monocyte% 7.1 % (0-10); NRBC Flagged by Analyzer 0 % (0-5); Neutrophil # 2.25 X10^3/uL (2.7-7.7); Neutrophil % 66.3 % (47-70); Platelet Count 144 K/mm3 (150-450); RBC Distribution Width SD 51.5 fl (35.1-43.9); White Blood Count 3.4 K/mm3 (4.4-11.0)
[2023-06-25 14:48] LABS: Anion Gap 6 (5-15); BUN 13 mg/dL (7-18); BUN/Creat Ratio 20.4 RATIO (10-20); Calcium,Total 8.3 mg/dL (8.5-10.1); Chloride 106 mmol/L (98-107); Creatinine, Serum 0.64 mg/dL (0.70-1.30); EST Glomerular Filtration Rate 143 mL/min (>60); Est Glom Filt Rate - Afr Amer 173 mL/min (>60); Estimated Creatinine Clearance 151.97 ml/min; Glucose 183 mg/dL (74-106); Potassium 3.9 mmol/L (3.5-5.1); Sodium Level 139 mmol/L (136-145); Troponin-I HS (w/2H Reflex) 26 pg/mL (3.0-78.0)
--- NOTE | 2023-06-25 16:01 | ECHOLC_ITS ---
Reason For Study: Chest Pain Procedure This was a limited 2D transthoracic echocardiogram. Contrast injection was performed. Exam performed portable in ED. Left Ventricle Normal LV size. Left ventricular systolic function is normal. The estimated ejection fraction is 65 %. No regional wall motion abnormalities noted. Right Ventricle Normal RV size. Atria Normal left atrium. Normal right atrium. Mitral Valve Normal mitral valve. Tricuspid Valve Normal tricuspid valve. Mild (1+) tricuspid valve insufficiency. Pulmonary artery systolic pressure is 36 mmHg. Aortic Valve The aortic valve is not well visualized. Peak aortic valve gradient 29 mmHg. Mean aortic valve gradient 15 mmHg. Pulmonic Valve Normal pulmonic valve. Great Vessels Normal aortic root. The pulmonary artery is normal size. Normal inferior vena cava. Pericardium/Pleural Trivial pericardial effusion. Medication Diluted definity 2ml given slow IV push to enhance endocardial definition. MMode/2D Measurements & Calculations LVIDd: 4.9 cm IVSd: 1.1 cm LVOT diam: 2.0 cm LVIDs: 3.0 cm LVPWd: 1.2 cm FS: 38.7 % LVOT area: 3.3 cm2 Doppler Measurements & Calculations Ao V2 max: 267.8 cm/sec LV V1 max: 144.5 cm/sec SV(LVOT): 120.8 ml Ao max P.7 mmHg LV V1 max P.4 mmHg Ao V2 mean: 187.1 cm/sec LV V1 mean P.6 mmHg Ao mean P.4 mmHg LV V1 mean: 114.1 cm/sec Ao V2 VTI: 58.0 cm LV V1 VTI: 37.2 cm AV (velocity ratio): 0.64 BALBIR(I,D): 2.1 cm2 BALBIR(V,D): 1.8 cm2 TR max jessica: 281.1 cm/sec TR max P.6 mmHg ECHO/Echo Limited w/Contrast Interpretation Summary Normal LV size. Left ventricular systolic function is normal. The estimated ejection fraction is 65 %. Trivial pericardial effusion. Pulmonary artery systolic pressure is 36 mmHg. Contrast injection was performed. Ordering Physician: Jeffrey Alba Referring Physician: Tomas Holman Performed By: Olimpia Tripathi, ANGELICA, RVT
[2023-06-25 16:26] LABS: Reflex Troponin-HS? (from REC) Y
[2023-06-25 17:00] VITALS: BP 148/76; PULSE 89; RESP 14; TEMP 36.4; O2SAT 99
[2023-06-25 17:06] LABS: Troponin-I HS 25 pg/mL (3.0-78.0)
== END 2023-06-25 17:21 | disposition home or self-care (01) ==
PROVIDERS: Emergency Provider Emergency Medicine; PCP Family Medicine; Visit Provider Emergency Medicine
DX: R07.9 Chest pain, unspecified (principal); G47.30 Sleep apnea, unspecified; Z87.891 Personal history of nicotine dependence
CPT/HCPCS: 71045; 80048; 84484; 85025; 93005; 93308; 99284; Q9957; A4216; C8924

== ENCOUNTER 2023-08-15 11:04 | Emergency (ER) | payer MEDICAID, SELFPAY ==
[2023-08-15 11:05] VITALS: BP 172/68; PULSE 68; RESP 16; TEMP 36.6; O2SAT 98
[2023-08-15] MEDS: diazePAM 5 MG Tablet PO (11:28)
--- NOTE | 2023-08-15 11:31 | ED.VIS.BACK ---
HPI History of Present Illness Chief Complaint: Back Informant: patient Narrative Narrative: Worsening nontraumatic low back pain for the past 5 days. No radicular symptoms. No loss of bowel or bladder control. No surgical intervention in the past. He states he had a spine injection from his spine surgeon approximately 6 months ago. He does not see pain management. He is on gabapentin. Report saw his PCP office yesterday had nonsteroidal added to his regimen he had a previous prescription for lidocaine patches which was picked up yesterday. He used it. No improvement. States is spasm sensation in his lower back. He is here due to no improvement of symptoms and seen his PCP yesterday. Prior similar symptoms: Yes PFSH PFSH Medical History Anxiety Anxiety Benign essential HTN Bleeding esophageal varices Borderline diabetes Chest pain Cirrhosis CPAP (continuous positive airway pressure) dependence Diabetes Diabetes mellitus, type II Elevated CPK Flash pulmonary edema Hyperlipidemia Hypertension Hypertensive emergency Obesity Sleep apnea Thrombocytopenia Home Medications acetaminophen 500 mg tablet 500 - 1,000 mg PO Q6H PRN PRN Pain 02/13/17 [History Last Taken 08/17/18 500 - 1000 MG] atorvastatin 20 mg tablet 80 mg PO QHS cholesterol 02/13/17 [History Last Taken 05/14/21] metformin 500 mg 24 hr tablet,extended release (gastric retention) 1,000 mg PO BID diabetes 02/13/17 [History Last Taken 05/15/21] furosemide 20 mg tablet (Lasix) 20 mg PO DAILY diuretic 08/30/18 [History Last Taken 05/15/21] aspirin 81 mg chewable tablet 81 mg PO DAILY@0800 heart health 11/13/19 [History Last Taken 05/15/21] ezetimibe 10 mg tablet 10 mg PO DAILY cholesterol 11/13/19 [History Last Taken 05/15/21] lisinopril 20 mg tablet 40 mg PO BID htn 11/13/19 [History Last Taken 05/15/21] sertraline 50 mg tablet 100 mg PO DAILY anxiety 11/13/19 [History Last Taken 05/15/21] Gabapentin 100 mg PO TID joint pain 11/18/20 [History Last Taken 05/15/21] Melatonin 5 mg PO QHS sleep 11/18/20 [History Last Taken 05/14/21] Nadolol 40 mg PO DAILY HTN 11/18/20 [History Last Taken 05/15/21] Omeprazole 40 mg PO DAILY GERD 11/18/20 [History Last Taken 05/15/21] Farxiga 10 mg PO DAILY Check with primary doctor 12/20/20 [History Last Taken 05/15/21] sitagliptin phosphate 100 mg tablet (Januvia) 100 mg PO DAILY diabetes 05/15/21 [History Last Taken 05/15/21] glipizide 5 mg tablet 10 mg PO BID 08/09/22 [History Last Taken Unknown] pioglitazone 30 mg tablet (Actos) 30 mg PO DAILY 08/09/22 [History Last Taken Unknown] albuterol sulfate 90 mcg/actuation aerosol inhaler (Ventolin HFA) 1 - 2 puff inhalation Q4H PRN PRN Wheezing #1 ea 12/02/22 [Rx Last Taken Unknown] diazepam 5 mg tablet 5 mg PO Q8 PRN Muscle Spasm #12 tabs 08/15/23 [Rx Last Taken Unknown] Allergy/AdvReac Type Severity Reaction Status Date / Time codeine AdvReac Other Verified 08/15/23 11:07 Family History Mother COPD (chronic obstructive pulmonary disease) Father COPD (chronic obstructive pulmonary disease) CVA (cerebral vascular accident) Hypertension Surgical History Hx of umbilical hernia repair S/P inguinal hernia repair S/P ORIF (open reduction internal fixation) fracture Social History household members: none Smoking Status: Former smoker how long ago did patient quit smoking: Prior 1 pack/week starting in his 20s, stopped 10-12 years ago. alcohol intake: never substance use type: does not use ROS ROS ED Constitutional Constitutional ED: Denies chills, fever(s) or sweats Eyes Eyes: Denies change in vision ENT ENT ED: Denies dysphagia or sore throat Cardiovascular Cardiovascular: Denies chest pain, leg edema, palpitations or racing heartbeat Respiratory/Chest Respiratory/Chest: Denies cough, dyspnea or dyspnea on exertion Gastrointestinal Gastrointestinal: Denies abdominal pain, diarrhea, nausea or vomiting Genitourinary Genitourinary ED: Denies dysuria, hematuria or urinary frequency Musculoskeletal Musculoskeletal: Reports back pain; Denies extremity pain or neck pain Integumentary Denies rash or wounds Neurologic Neurologic: Denies headache(s), paresthesias or weakness EXAM Physical Exam Const Vital Signs: 08/15/23 11:05 Temperature 97.8 F Temperature Source Temporal Pulse Rate 68 Respiratory Rate 16 Blood Pressure 172/68 H Blood Pressure Mean 102 Pulse Ox 98 Oxygen Delivery Method Room Air Positive well nourished and well developed General Appearance ED: well developed and NAD HEENT Reports moist mucous membranes normocephalic and atraumatic Eyes PERRL, EOMs intact bilaterally and conjunctivae normal General Eye ED: Yes normal appearance of both eyes Neck no lymphadenopathy and supple General: Negative for tenderness Chest Wall Chest: Negative for tenderness Resp normal respiratory effort and normal air movement Effort and Inspection: symmetric chest movement; Negative for respiratory distress Cardio regular rate, regular rhythm and no murmurs Peripheral Pulses: pulses 2+ throughout GI normal to inspection, nondistended, normoactive bowel sounds and non-tender Palpation: Negative for guarding or rebound tenderness present Back/Spine no CVA tenderness Back/Spine Narrative: No midline tenderness. Paralumbar tenderness bilaterally. Straight leg test negative. 2+ patellar reflex bilaterally. Extremity normal to inspection General Extremety ED: Negative for edema or tenderness General Extremity: Negative for edema Neuro oriented x3 and no sensory deficits noted Sensorium / Orientation: awake and alert Skin no rashes or lesions noted and no wounds MDM MDM MDM Narrative Medical decision making narrative: Interventions / MDM: Differential diagnosis: Lumbar strain Diagnosis considered but do not suspect: No cauda equina symptoms. My EKG interpretation: N/A Imaging independently reviewed and interpreted by myself: N/A External documents reviewed: N/A Test considered but not ordered:N/A ED course: Patient reporting back spasms and seen requesting muscle relaxers. He is treated with Valium and monitored. In the interim, healthcare provider, states he was lifting things that he should not have 5 days ago. He has history of developmental delay. He was observed and felt better ambulate with no difficulties. Short prescription of muscle relaxers for symptom control. Re-evaluation: stable Disposition discussed with patient/family/significant other: Patient and healthcare provider. Case discussed with consulting clinician: N/A This note was generated with [employer] software. It may contain incorrect words, spelling, and punctuation that were not noted in checking the note before signing. Discharge Plan Triage Chief Complaint: Back ED Provider: Vasquez Bird Dx/Rx/DC Orders Clinical Impression: Back spasm, Acute lumbar myofascial strain Instructions: ED Back Sprain/Strain Prescriptions: New diazepam [diazepam] 5 mg tablet 5 mg PO Q8 PRN (Reason: Muscle Spasm) Qty: 12 0RF No Action furosemide [Lasix] 20 mg tablet 20 mg PO DAILY atorvastatin 20 MG tablet 80 mg PO QHS acetaminophen 500 MG tablet 500 - 1,000 mg PO Q6H PRN PRN (Reason: Pain) metformin 500 MG tablet,ER carlyn.retention 24 hr 1,000 mg PO BID Gabapentin 100 mg PO TID Nadolol 40 mg PO DAILY Omeprazole 40 mg PO DAILY Melatonin 5 mg PO QHS Farxiga 5 MG tablet 10 mg PO DAILY pioglitazone [Actos] 30 mg Tablet 30 mg PO DAILY glipizide 5 mg Tablet 10 mg PO BID lisinopril 20 MG tablet 40 mg PO BID aspirin 81 MG tablet,chewable 81 mg PO DAILY@0800 Patient Comments: states was not told to stop for surgery sertraline 50 MG tablet 100 mg PO DAILY ezetimibe 10 MG tablet 10 mg PO DAILY Januvia 100 mg Tablet 100 mg PO DAILY albuterol sulfate [Ventolin HFA] 90 mcg/actuation HFA aerosol inhaler 1 - 2 puff inhalation Q4H PRN PRN (Reason: Wheezing) Qty: 1 0RF Primary Care Provider: Tomas Holman Referrals: Tomas Holman MD [Primary Care Provider] - 3-5 Days Activity Restrictions/Additional Instructions: Take and use muscle relaxer as prescribed. Follow-up with your doctor reevaluation further treatment plans. Disposition Disposition: Home, Self Care Discharge Date/Time: 08/15/23 13:07
== END 2023-08-15 13:07 | disposition home or self-care (01) ==
PROVIDERS: Emergency Provider Emergency Medicine; PCP Family Medicine; Visit Provider Emergency Medicine
DX: M62.830 Muscle spasm of back (principal); E11.9 Type 2 diabetes mellitus without complications; S39.012A Strain of muscle, fascia and tendon of lower back, initial encounter; I10 Essential (primary) hypertension; E78.5 Hyperlipidemia, unspecified; F41.9 Anxiety disorder, unspecified; G47.30 Sleep apnea, unspecified; Z79.82 Long term (current) use of aspirin; Z79.84 Long term (current) use of oral hypoglycemic drugs; Z79.899 Other long term (current) drug therapy; Z87.891 Personal history of nicotine dependence; X58.XXXA Exposure to other specified factors, initial encounter
CPT/HCPCS: 99282

== ENCOUNTER 2023-12-06 09:00 | Outpatient (RCR) | payer MEDICAID, SELFPAY ==
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
--- NOTE | 2023-11-08 14:55 | HP.PTREVAL ---
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 Please see the progress note below for an update on the physical therapy plan of care! Subjective Subjective: PATIENT REPORTS SOME DECREASED BACK PAIN AFTER KIRK 11/06/23 (DR. SMITH). PATIENT REPORTS HIS PAIN LEVEL IS BETTER. HE REPORTS HE IS ABLE TO GET UP AND MOVE BETTER BUT HE IS STILL SLOW. GETTING OUT OF A CHAIR IS BETTER AND MY LEGS FEEL QUITE A BIT STRONGER THAN THEY DID. PATIENT REPORTS DR. MINOR WANTS HIM TO HAVE BACK SURGERY A LAST RESORT BECAUSE OF HIS OTHER HEALTH ISSUES. PATIENT REPORTS HE WAS GETTING TEMPORARY AND SOME OVER-ALL BENEFIT FROM AQUATIC THERAPY BEFORE GETTING HIS SHOT AND HE WASN'T TO CONTINUE. STATES HE HAD TO CANCEL SOME THERAPY DUE TO BEING SICK. Objective Objective/Function: THIS PATIENT PRESENTS TO PT WITH THE SAME CAREGIVER THAT CAME WITH HIM TO HIS INITAL PT EVAL (RANJAN). SHE IS HELPFUL WITH HIS HISTORY ALTHOUGH PATIENT ANSWERS MOST OF THE QUESTIONS HIMSELF WITH HER CLARIFYING AND ADDING ADDITIONAL INFORMATION. AT TIMES IT WAW HARD TO FOLLOW THE COURSE OF EVENTS HE HAS GONE THROUGH SINCE STARTING PT BETWEEN THE PATIENTS REPORTS AND KOBE BUT IN THE END THEY BOTH AGREE WITH OVER SEEING BENEFIT FROM AQUATIC THERAPY AND CONTINUING. SHE STATES SHE DOES NOT NEED TO ATTEND HIS POOL SESSIONS AND SOMETIMES FAMILY MEMBERS WILL BE BRINGING HIM. PATIENT FOLLOWS ALL PT COMMANDS WELL TODAY. THEY REPORT THEY ARE GOING TO LOOK INTO USE OF A POOL FOR INDEP POOL EX BETWEEN SESSIONS HE LEARNS EX'S BECAUSE HE WILL NO LONGER BE DOING SPECIAL OLYMICS. SHE STATES SHE WILL BE ABLE TO GO WITH HIM. PATIENT WAS SEEN TODAY FOR RE-ASSESSMENT OF PROGRESS TOWARD THE SET PT GOALS AND THE NEED FOR FURTHER PHYSICAL THERAPY VS READINESS FOR DISCHARGE. PATIENT APPEARS TO BE MAKING GOOD PROGRESS TOWARD ALL PT GOALS HOWEVER HE JUST REC'D AN KIRK 2 DAYS AGO AND GOALS NEED TO BE MONITORED AND WILL REMAIN CURRENT FOR NOW. UPON EXAM TODAY: PATIENT AMBULATES INDEP'LY INTO PT X APPROX 300 FEET WITH STRAIGHT CANE WITH EXTREMELY FLEXED POSTURE. CADANCE IS SLOW BUT NO LOB. HE IS NOW ABLE TO TRANSFER SIT TO STAND WITH ONE UE ASSIST. HE STILL HAS DIFFICULTY GETTING HIS BALANCE AND INITIATING GAIT HOWEVER ABLE TO DO SO INDEP'LY. Sensory deficit: AMOR LE LIGHT TOUCH SENSATION IS GROSSLY INTACT AND SYMMETRICAL ROM deficit: AMOR HIP FLEX, HIP ROTATOR, HS AND ANKLE TIGHTNESS. Motor deficit: AMOR HIPS GROSSLY 4/5, KNEES 4/5, ANKLES 4/5. Lumbar mvmt loss: flex - VERY MINIMAL - BETTER THAN AT EVAL ext - MARCELINO R SG - MARCELINO L SG - MARCELINO PATIENT REPORTS MILD INCREASED LBP WITH LUMBAR ROM TESTING TODAY. Core strength: POOR Plan Plan Plan: *DO NOT LEAVE PATIENT UNATTENDED IN POOL AREA* USE CHAIR LIFT TO GET PATIENT OUT OF POOL* *NEUTRAL SPINE ONLY* AQUATIC THERAPY FOR BACK PAIN RELIEF, CORE STRENGTH AND STABILITY EX WITH NEUTRAL SPINE. POSTURE CORRECTION/STRENGTHING. LE ROM, STRETCHING AND STRENGTHENING. HEP INSTRUCTION. Balance/Gait/Functional tests Balance/Special Test Scores Oswestry Low Back Score: 13 Goals Goals Goal 1:: DECREASE C/O BACK PAIN BY AT LEAST 25% TO EASE ADL'S Goal Time Frame: 6-8 Weeks Goal Progress: Progressing Goal 2:: PATIENT WILL BE ABLE TO TRANSFER SIT TO STAND WITH ONE UE ASSIST AND INITIATE GAIT WITHOUT DIFFICULTY AFTER SITTING. Goal Time Frame: 6-8 Weeks Goal Progress: Progressing Goal 3:: PATIENT WILL SCORE AT LEAST 5 POINT IMPROVMENT ON BACK OSWESTRY DISABLITY INDEX Goal Time Frame: 6-8 Weeks Goal Progress: Progressing Goal 4:: PATIENT WILL BE INDEP WITH HEP AND/OR WATER EX PROGRAM FOR CONTINUED IMPROVEMENT ONCE FORMAL PHYSICAL THERAPY CONCLUDES. Goal Time Frame: 6-8 Weeks Goal Progress: Progressing Anticipated Interventions Anticipated Interventions Patient/Client Instruction: Educate patient on: Condition, Plan of Care and Risk Factors For the Purpose of:: To improve self management Therapeutic Exercise to Include: Strength training, Body mechanics, Postural training, Flexibilty training, Gait and locomotor training, Neuromotor development, In an aquatic setting and Dynamic Lumbar Stabilization For the Purpose of:: To decrease pain, To improve muscle performance and motor function, To increase tolerance to activity/condition/position, To improve ability of physical actions for home/community/work/leisure, To improve gait and locomotor functions and To increase flexibility/ROM Re-Evaluation Ending Re-evaluation ending: Please do not hesitate to contact me at [phone] by phone or if you have questions or concerns regarding this new plan of care! Sincerely, Keila Callahan, PT, Cert MDT
--- NOTE | 2023-12-14 12:20 | HP.PTDCSUM ---
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 Discharge Date: 12/14/23 Please see the following information for a summary of their discharge status. Subjective Subjective: REPORTS HE IS A LOT BETTER SINCE DOING THERAPY AND THE SHORTS. PATIENT REPORTS HIS NEXT SHOT IS SOMETIME IN JANUARY. SPECIAL OLYMPIC BOWLING, TRACK AND BOCCE BALL STARTING NEXT WEEK. PATIENTS BORING MACHINE FEEDER RANJAN IS HERE WITH HIM AND REPORTS SHE IS GOING TO BE TAKING HIM TO THE [facility] TO DO HIS WATER EX'S. Pain Low Back: Pain Intensity (Out of 10): 5 BLE: Pain Intensity (Out of 10): 0 Overall Improvement % Improvement: 65 Objective Objective/Function: PATIENT WAS SEEN TODAY FOR RE-ASSESSMENT OF PROGRESS TOWARD THE SET PT GOALS AND THE NEED FOR FURTHER PHYSICAL THERAPY VS READINESS FOR DISCHARGE. UPON EXAM TODAY PATIENT IS MOVING BETTER, REPORTING LESS PAIN AND HE NOW HAS A WATER EX PROGRAM THAT HE CAN DO AT THE [facility] WITH HIS BORING MACHINE FEEDER. TODAY FOR THE FIRST TIME HE DEMONSTRATES THE ABILITY TO TRANSFER INDEP'LY FROM SIT TO STAND WITHOUT UE ASSIST. TUG TIME IS TESTED WITH ONE UE ASSIST AND ST. CANE = 15.25 SEC WITHOUT LOB OR C/O INCREASED PAIN. 30 SEC STS TEST WITH ONE UE ASSIST = 7. PATIENT INITIATED GAIT AFTER SITTING IN LOBBY AND FOR TUG TEST WITHOUT HESITATION. PATIENT IS PLEASANT AND COOPERATIVE TO WORK WITH AND MADE GOOD EFFORT WITH ALL TESTING TODAY. ALL GOALS HAVE BEEN MET AND HE IS APPROPRIATE FOR DISCHARGE. Goals Goal 1:: DECREASE C/O BACK PAIN BY AT LEAST 25% TO EASE ADL'S Goal Progress: Goal Met Goal 2:: PATIENT WILL BE ABLE TO TRANSFER SIT TO STAND WITH ONE UE ASSIST AND INITIATE GAIT WITHOUT DIFFICULTY AFTER SITTING. Goal Progress: Goal Met Goal 3:: PATIENT WILL SCORE AT LEAST 5 POINT IMPROVMENT ON BACK OSWESTRY DISABLITY INDEX Goal Progress: Goal Met Goal 4:: PATIENT WILL BE INDEP WITH HEP AND/OR WATER EX PROGRAM FOR CONTINUED IMPROVEMENT ONCE FORMAL PHYSICAL THERAPY CONCLUDES. Goal Progress: Goal Met Plan Plan: D/C. D/C Information d/c sentence: If there are questions or concerns regarding this patient's physical therapy, please feel free to call me at [phone]. Thank you for the referral of this patient. Sincerely, Keila Callahan, PT, Cert MDT Balance/Gait/Functional tests Balance/Special Test Scores Oswestry Low Back Score: 13 Improvement % Improvement: 65
== END 2023-12-06 19:00 | disposition home or self-care (01) ==
LOC: PT 09:00
PROVIDERS: PCP Family Medicine
DX: M99.63 Osseous and subluxation stenosis of intervertebral foramina of lumbar region (principal); M43.16 Spondylolisthesis, lumbar region
CPT/HCPCS: 97113; 97162

== ENCOUNTER 2024-08-06 13:30 | Outpatient (RCR) | payer MEDICAID, SELFPAY ==
--- NOTE | 2024-07-10 14:14 | HP.PTEVAL_ITS ---
Patient's Visit Information Visit Information Visit Information: EDD DUPONT is a 49 year old M referred to Physical Therapy by Dr. Tomas Delgado MD with a diagnosis of OA R SHLD. Date of Evaluation: 07/10/24 Physical Therapist: Keila Callahan, PT, Cert MDT Visit Plan Frequency: 2x /Week Duration: 4-6 Weeks Plan: R SHLD US, ROM, STRETCHING AND STRENGTHENING. MANUAL THEREAPY INCLUDING PROM AND JT MOBILIZATION. POSTURE CORRECTION, STRETCHING AND STRENGTHENING. HEP Subjective Subjective: Work/Leisure: LIVING WITH MOM CURRENTLY. Disability: NOT CURRENTLY ON DISABILITY BUT APPLYING DUE TO NOT BEING ABLE TO WORK. STATES DR. DELGADO HAS HIM ON BENDING, LIFTING, TWISTING AND STANDING RESTRICTIONS. HE ALSO REPORTS HE IS A SLOW LEARNER. Present symptoms: R SHLD PAIN. R UPPER ARM INTERMITTENT NUMBNESS RARELY. Getting Better, Getting Worse, or Staying the Same: Staying the Same. Present since: BEGINNING OF MAY 2024 Pain Scale: Worst - 9/10 Least - 2/10 Currently: 12/25 Commenced as a result of: USING THE WALKER. PATIENT REPORTS DR. MINOR HIS PAIN MGMT DOCTOR FOR HIS BACK WANTS HIM TO USE THE ROLLATOR DUE TO HIS SPINAL STENOSIS. LAST KIRK WAS ABOUT 4 MONTHS AGO. Symptoms at onset: R SHLD PAIN Worse: USING IT TO WALK WITH ROLLATOR, RAISING ARM OVER HEAD, SOMETIMES TRYING TO TAKE LIDS OFF JARS, USING R ARM TO PULL HELP SELF UP STEPS AT MOMS. IT DOESN'T REALLY HURT WHEN I LIFT THINGS LIKE THE LAUNDRY BASKETS OR MILK JUGS BUT I DON'T USUALLY LIFT THINGS OVER MY HEAD. Better: RELAXING IT, HEAT, ICE, ALEVE Disturbed sleep: YES - AT TIMES PMH/Recent major surgery: STAGE 4 FATTY LIVER, HTN, NIDDM, HIGH CHOLESTEROL, DEGENERATIVE ARTHRITIS AMOR KNEES, S/P R KNEE SURGERY, NO SPINE SURGERY, ANXIETY, DEPRESSION, SLOW LEARNER, CLUB FOOT. LLE LONGER. Objective Objective: Sitting Posture/Standing Posture: EXCESSIVE FORWARD HEAD, ROUNDED SHOULDERS AND INCREASED KYPHOSIS. Active Correction of posture: PATIENT IS ONLY ABLE TO MINIMALLY CORRECT AND DOES NOT MAINTAIN. Other Observations: THIS PATIENT AMBULATES INDEP'LY INTO PT AND LOOKS TO BE LEANING FAIRLY HEAVILY ON HIS ROLLATOR. WITH CUEING HE SIGNIFICANLTY DECREASES THE AMT OF WEIGHT HE PUTS THROUGH HIS UE'S WITHOUT NEGATIVE EFFECT ON HIS BALANCE. Sensory deficit: AMOR UE LIGHT TOUCH SENSATION IS GROSSLY INTACT AND SYMMETRICAL ROM deficit: R SHLD ACTIVE FLEX 80 DEG, L 120 DEG. R SHLD ABD 64 DEG, L 106 DEG. AMOR ELBOW, FOREARM, WRIST AND HAND ROM WFL. Motor deficit: R SHLD FLEX 3-/5, ABD 2+/5, IR 3-/5, ER 2+/5, ELBOW 5/5, PENS AND PENCILS REPAIRER 35 LBS. PATIENT IS R HAND DOMINANT. L SHLD FLEX 4/5, ABD 4-/5, IR 4-/5, ER 4-/5. ELBOW 5/5, PENS AND PENCILS REPAIRER 30 LBS. Dural Signs: NEGATIVE AMOR UE'S. Cervical Mvmt Loss: Flex: NIL Pro: NIL Ext: MOD TO MARCELINO Ret: MARCELINO RSB: MOD LSB: MOD R Rot: MOD L Rot: MOD CERVICAL ROM TESTING HAS NO EFFECT ON UE SX'S. Postural strength: POOR Goals Goal 1:: DECREASE C/O R SHLD PAIN BY AT LEAST 50% TO EASE ADL'S Goal Time Frame: 4-6 Weeks Goal 2:: INCREASE PAINFREE R SHLD ROM TO EASE ADL'S. Goal Time Frame: 4-6 Weeks Goal 3:: IMPROVE R SHLD FUNCTIONAL STRENGTH Goal Time Frame: 4-6 Weeks Goal 4:: PATIENT WILL BE INDEP WITH A HEP FOR CONTINUED IMPROVEMENT ONCE FORMAL PHYSICAL THERAPY CONCLUDES. Goal Time Frame: 4-6 Weeks Rehabilitation Potential Physical Therapy Diagnosis: R SHLD PAIN, STIFFNESS AND WEAKNESS. Rehabilitation Potential: Good Anticipated Interventions Patient/Client Instruction: Educate patient on: Condition, Plan of Care and Risk Factors For the Purpose of:: To improve self management Therapeutic Exercise to Include: Strength training, Body mechanics, Postural training, Flexibilty training, Passive ROM and Active ROM For the Purpose of:: To decrease pain, To increase ROM, To improve muscle performance and motor function, To improve ability to perform ADL's, To increase tolerance to activity/condition/position, To improve ability of physical actions for home/community/work/leisure, To decrease soft tissue restriction and To increase flexibility/ROM Manual Therapy Techniques to Include: Mobilization and Passive ROM For the Purpose of:: To decrease pain, To increase ROM, To improve muscle performance and motor function, To increase tolerance to activity /condition/position, To improve ability of physical actions for home/community/work/leisure and To increase flexibility/ROM Cryotherapy (ice pack, ice massage): Yes Thermo therapy (hot pack): Yes Ultrasound (thermal/non thermal): Yes For the Purpose of:: To decrease pain and To improve nutrient delivery to tissue Text: Thank you for the opportunity to evaluate your patient. For Medicare and Medicare HMO plans, please review the plan of care and approve it. It will need to be FAXED BACK to us at [phone] for Medicare purposes. For Medicare only, by signing this I certify the plan of care. Please let me know if there are questions or concerns regarding this plan of care. Physician Signature: Date:
== END 2024-08-06 19:00 | disposition home or self-care (01) ==
LOC: PT 13:30
PROVIDERS: PCP Family Medicine; Referring Provider Family Medicine; Visit Provider Family Medicine
DX: M19.011 Primary osteoarthritis, right shoulder (principal)
CPT/HCPCS: 97035; 97110; 97140; 97162

== ENCOUNTER 2024-12-30 10:30 | Outpatient (RCR) | payer MEDICAID, SELFPAY ==
--- NOTE | 2024-11-19 11:27 | HP.PTEVAL_ITS ---
Patient's Visit Information Visit Information Visit Information: EDD DUPONT is a 49 year old M referred to Physical Therapy by ZAIRA Love with a diagnosis of ACUTE PAIN L SHLD. Date of Evaluation: 11/19/24 Physical Therapist: Keila Callahan PT, Cert MDT Visit Plan Frequency: 2x /Week Duration: 4-6 Weeks Plan: 1. L SHLD US X 6 TO 8 VISITS 2. L SHLD MANUAL THERAPY FOR JOINT MOBILIZATION, STM, AA/PROM TO INCREASE ROM AND DECREASE PAIN 3. POSTURAL, SCAPULAR AND ROTATOR CUFF STRENGTH/STABILIZATION EX WITH HEP INSTRUCTION 4. 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 HE ALSO HAS OTHER COMMUNITY SUPPORT SERVICES. Disability: YES Present symptoms: NECK AND L SHLD PAIN. Present since: ABOUT A MONTH AGO Getting Better, Getting Worse or Staying the Same: A LITTLE BETTER Pain Scale: Worst - 9/10 Least - 3/10 Currently: /10 Commenced as a result of: WAS LOWERING SELF TO BATHTUB. R HAND SLIPPED AND RAMÓN L SHLD. FELT OP IN L SHLD AND PAIN. Worse: TRYING TO LIFT L ARM UP AND OUT TO THE SIDE. PULLING L ARM BACK. Better: FLEXERIL, ICE, HEAT, EX'S GIVEN FOR R ARM GIVEN LAST EPISODE OF CARE FOR PT. Disturbed sleep: YES Previous history/Previous treatment: H/O R SHLD PAIN This episode: FLEXERIL AND ALEVE. ALREADY ON GABAPENTIN AND CELEBREX. Dizziness: NO Tinnitus: NO Nausea: NO Shortness of Breath: NO Difficulty Swallowing: NO Gait: CHRONIC USE OF AD. USING ROLLATOR Imaging: RECENT X-RAY OF L SHLD AT [facility] WAS NORMAL PER PATIENT REPORT. PMH/Recent major surgery: VALVULAR HEART DZ, STAGE 4 FATTY LIVER, HTN, NIDDM, HIGH CHOLESTEROL, DEGENERATIVE ARTHRITIS AMOR KNEES, S/P R KNEE SURGERY, NO SPINE SURGERY, ANXIETY, DEPRESSION, SLOW LEARNER, CLUB FOOT. LLE LONGER. Objective Objective: Sitting Posture/Standing Posture: MAJOR FH AND ROUNDED SHOULDERS. ABLE TO PARTIALLY CORRECT. DOES NOT MAINTAIN. Other Observations: FOLLOWS COMMANDS WELL. PLEASANT AND COOPERATIVE TO WORK WITH. INDEP GAIT INTO PT WITH ROLLATOR. SLOW INDEP TRANSFERS. Sensory deficit: AMOR UE LIGHT TOUCH SENSATION GROSSLY INTACT AND SYMMETRICAL ROM deficit: STANDING: R SHLD ELEVATION TO 140 DEG. L SHLD FLEX 105 DEG. ABD 87 DEG. ER 20 DEG WITH 60 DEG ABD. IR 80 DEG WITH 60 DEG ABD. L ELBOW, WRIST AND HAND AROM WFL. Motor deficit: L SHLD 2+/5, ELBOW 4-/5, NEEDLE LOOM OPERATOR 32 LBS (R NEEDLE LOOM OPERATOR 53 LBS). Reflexes: UNABLE TO ELICIT AMOR UE DTR'S. Dural Signs: NEGATIVE Cervical Mvmt Loss: Flex: NIL Pro: NIL Ext: MOD Ret: MARCELINO RSB: MIN - INCREASE L NECK AND SHLD PAIN - NW LSB: MIN - INCREASES L NECK AND SHLD PAIN - NW R Rot: MIN L Rot: MOD - INCREASES L NECK AND SHLD PAIN - NW Postural strength: POOR Palpation: TENDERNESS OF L UPPER TRAP, ANTERIOR, LATERAL AND POSTERIOR SHLD REGIONS. Balance/Special Test Scores Quick DASH Score: 60.0000 Goals Goal 1:: DECREASE C/O NECK AND L SHLD PAIN BY AT LEAST 50% TO EASE ADL'S. Goal Time Frame: 4-6 Weeks Goal 2:: INCREASE PAINFREE L SHLD ROM TO EASE ADL'S Goal Time Frame: 4-6 Weeks Goal 3:: IMPROVE L UE FUNCTIONAL STRENGTH TO IMPROVE ADL FUNCTION Goal Time Frame: 4-6 Weeks Goal 4:: INCREASE PAINFREE CERVICAL ROM TO EASE ADL'S Goal Time Frame: 4-6 Weeks Goal 5:: INDEP HEP Goal Time Frame: 4-6 Weeks Rehabilitation Potential Physical Therapy Diagnosis: NECK AND L SHLD PAIN, STIFFNESS AND WEAKNESS. POSTURAL TIGHTNESS AND WEAKNESS. Rehabilitation Potential: Good Anticipated Interventions Patient/Client Instruction: Educate patient on: Condition, Plan of Care and Risk Factors For the Purpose of:: To improve self management Therapeutic Exercise to Include: Strength training, Body mechanics, Postural training, Flexibilty training, Neuromotor development, Passive ROM, Active ROM and Scapular Strength/Stabilization For the Purpose of:: To decrease pain, To increase ROM, To improve muscle performance and motor function, To increase tolerance to activity/condition/position, To improve ability of physical actions for home/community/work/leisure and To increase flexibility/ROM Manual Therapy Techniques to Include: Trigger point massage, Mobilization and Soft tissue mobilization For the Purpose of:: To decrease pain, To improve muscle performance and motor function, To increase tolerance to activity/condition/position, To improve ability of physical actions for home/community/work/leisure, To decrease soft tissue restriction and To increase flexibility/ROM Cryotherapy (ice pack, ice massage): Yes Thermo therapy (hot pack): Yes Ultrasound (thermal/non thermal): Yes For the Purpose of:: To decrease pain, To decrease swelling/inflammation and To improve nutrient delivery to tissue Text: Thank you for the opportunity to evaluate your patient. For Medicare and Medicare HMO plans, please review the plan of care and approve it. It will need to be FAXED BACK to us at [phone] for Medicare purposes. For Medicare only, by signing this I certify the plan of care. Please let me know if there are questions or concerns regarding this plan of care. Physician Signature: Date:
--- NOTE | 2024-12-30 11:44 | HP.PTDCSUM_ITS ---
Discharge Summary D/C summary: It has been my pleasure to treat EDD DUPONT referred by ZAIRA Love, with the diagnosis of ACUTE PAIN L SHLD for a total of 12 visit(s). Discharge Date: 12/30/24 Please see the following information for a summary of their discharge status. Subjective Subjective: PATIENT REPORTS THIS PAST WEEK HAS BEEN A LOT BETTER. HIS CAREGIVER ALSO REPORTS PATIENT IS DOING ALL OF HIS NORMAL ACTIVITIES WITHOUT COMPLAINT. PATIENT REPORTS PLAYING CFX BATTERY BALL, GOING TO [employer] AND USING ARM MACHINES (UBE, LAT PULL DOWN AND BIKE W/ARMS - NUSTEP TYPE MACHINE), MOVING FURNITURE ([facility]), LIFTING 43 FLAT SCREEN TV, DOING LAUNDRY, SWEEPING, MOPPING, VACUUMING THIS PAST WEEK NO PROBLEM. HE HAS ALSO GONE FISHING. Pain Left Shoulder: Pain Intensity (Out of 10): Unrated Overall Improvement % Improvement: 85 Objective Objective/Function: PATIENT WAS SEEN TODAY FOR RE-ASSESSMENT OF PROGRESS TOWARD THE SET PT GOALS AND THE NEED FOR FURTHER PHYSICAL THERAPY VS READINESS FOR DISCHARGE. UPON EXAM TODAY: ROM deficit: STANDING: R SHLD ELEVATION TO 140 DEG. L SHLD FLEX 130 DEG. ABD 110 DEG. ER 65 DEG AND IR TO T12. Motor deficit: L SHLD 4-/5, ELBOW 5/5, CHANGE MANAGEMENT CONSULTANT 39 LBS (R CHANGE MANAGEMENT CONSULTANT 42 LBS). Dural Signs: NEGATIVE Cervical Mvmt Loss: Flex: NIL Pro: NIL Ext: MOD Ret: MARCELINO RSB: MIN LSB: MIN R Rot: MIN L Rot: MIN PATIENT DENIES PAIN WITH CERVICAL ROM TESTING. Goals Goal 1:: DECREASE C/O NECK AND L SHLD PAIN BY AT LEAST 50% TO EASE ADL'S. Goal Progress: Goal Met Goal 2:: INCREASE PAINFREE L SHLD ROM TO EASE ADL'S Goal Progress: Goal Met Goal 3:: IMPROVE L UE FUNCTIONAL STRENGTH TO IMPROVE ADL FUNCTION Goal Progress: Goal Met Goal 4:: INCREASE PAINFREE CERVICAL ROM TO EASE ADL'S Goal Progress: Goal Met Goal 5:: INDEP HEP Goal Progress: Goal Met Plan Plan: D/C. PATIENT AGREEABLE. D/C Information d/c sentence: If there are questions or concerns regarding this patient's physical therapy, please feel free to call me at [phone]. Thank you for the referral of this patient. Sincerely, Keila Callahan, PT, Cert MDT Balance/Gait/Functional tests Balance/Special Test Scores Quick DASH Score: 15.9075 Improvement % Improvement: 85
== END 2024-12-30 12:17 | disposition home or self-care (01) ==
LOC: PT 10:30
PROVIDERS: PCP Family Medicine; Referring Provider Physician Assistant; Visit Provider Physician Assistant
DX: M25.512 Pain in left shoulder (principal)
CPT/HCPCS: 97035; 97110; 97162; 97530

== ENCOUNTER 2025-07-03 10:26 | Emergency (ER) | payer MEDICAID, SELFPAY ==
[2025-07-03 10:27] VITALS: BP 143/71; PULSE 65; RESP 18; TEMP 36.4; O2SAT 99; BMI 38.7
--- NOTE | 2025-07-03 11:20 | EX.ED.DYSGE1 ---
HPI History of Present Illness Chief Complaint: Abd Pain Narrative Narrative: Pt is a 50-year-old male who is presenting to the ER today with chief complaint of periumbilical cramping since last evening. Patient has nausea with no vomiting. Patient has had loose stool. Patient has had 3 hernia surgeries in the past, inguinal and ventral. Patient has mild left-sided headache. Patient was taken to urgent care by a healthcare provider who helps watch him, that was brought to the ER. Patient's had no recent sick contacts. Patient has no sinus congestion, no cough or ear pain. No runny nose. No chest pain or shortness of breath. Patient was seen at the urgent care, and they recommended patient come to the ER for follow-up and evaluation. REVIEW OF SYSTEMS: Unless otherwise stated in this report the patient's positive and negative responses for review of systems for constitutional, eyes, ENT, cardiovascular, respiratory, gastrointestinal, neurological, , musculoskeletal, and integument systems and related systems to the presenting problem are either stated in the history of present illness or were not pertinent or were negative for the symptoms and/or complaints related to the presenting medical problem. Nurse's notes and vital signs reviewed. The patient is not hypoxic. Vital signs reviewed and patient is not hypoxic. General: The patient appears well and in no apparent distress. Patient is resting comfortably on cart. Not toxic, lethargic, or listless. Skin: Warm, dry, no pallor noted. There is no rash noted. Head: Normocephalic, atraumatic Eye: Normal conjunctiva, no drainage, EOMI. PERRL. Ears, Nose, Mouth, and Throat: oral mucosa is moist. Nares patent. Mouth without vesicles. Cardiovascular: Regular Rate and Rhythm, no murmurs, gallops, or rubs Respiratory: Patient is in no distress, no accessory muscle use, lungs are clear to auscultation, no wheezing, rales or rhonchi Back: non-tender, no CVA tenderness bilaterally to percussion. NO CTLS midline or paraspinal tenderness to palpation. GI: Soft, obese, when patient was sitting up, you could palpate a ventral hernia. When patient laid down, the ventral hernia went away completely. This was noted by Jenni RN taking care of this patient and at bedside and myself no tenderness to palpation, no masses appreciated. No rebound, guarding, or rigidity noted. No flank pain. No peritoneal signs. Nonsurgical abdomen. Musculoskeletal: The patient has full range of motion of all extremities and joints with no difficulty. Patient has no motor, no sensory deficits. Neurological: A&O x4, normal speech, no focal neurological deficits. Psychiatric: Cooperative [facility] Medical History Anxiety Anxiety Benign essential HTN Bleeding esophageal varices Borderline diabetes Chest pain Cirrhosis CPAP (continuous positive airway pressure) dependence Diabetes Diabetes mellitus, type II Elevated CPK Flash pulmonary edema Hyperlipidemia Hypertension Hypertensive emergency Obesity Sleep apnea Thrombocytopenia Home Medications ?Medication ?Instructions ?Recorded ?Last Taken ?Type acetaminophen 500 mg tablet 500 - 1,000 mg PO Q6H PRN PRN Pain 02/13/17 08/17/18 History 500 - 1000 MG atorvastatin 20 mg tablet 80 mg PO QHS cholesterol 02/13/17 05/14/21 History metformin 500 mg 24 hr 1,000 mg PO BID diabetes 02/13/17 05/15/21 History tablet,extended release (gastric retention) furosemide 20 mg tablet (Lasix) 20 mg PO DAILY diuretic 08/30/18 05/15/21 History aspirin 81 mg chewable tablet 81 mg PO DAILY@0800 heart health 11/13/19 05/15/21 History ezetimibe 10 mg tablet 10 mg PO DAILY cholesterol 11/13/19 05/15/21 History lisinopril 20 mg tablet 40 mg PO BID htn 11/13/19 05/15/21 History sertraline 50 mg tablet 100 mg PO DAILY anxiety 11/13/19 05/15/21 History Gabapentin 200 mg PO 2XD joint pain 11/18/20 05/15/21 History Melatonin 5 mg PO QHS sleep 11/18/20 05/14/21 History Nadolol 40 mg PO DAILY HTN 11/18/20 05/15/21 History Farxiga 10 mg PO DAILY Check with primary 12/20/20 05/15/21 History doctor albuterol sulfate 90 mcg/actuation 1 - 2 puff inhalation Q4H PRN PRN 12/02/22 Unknown Rx aerosol inhaler (Ventolin HFA) Wheezing #1 ea celecoxib 100 mg capsule 200 mg PO BID 09/28/23 Unknown History pantoprazole 40 mg tablet,delayed 40 mg PO BID 09/28/23 Unknown History release trazodone 50 mg tablet 50 mg PO QHS PRN sleep 09/28/23 Unknown History vitamin E (dl, acetate) 450 mg 450 mg PO DAILY 09/28/23 Unknown History (1,000 unit) capsule lorazepam 1 mg tablet 1 mg PO QHS 11/21/23 Unknown History dulaglutide 1.5 mg/0.5 mL 1.5 mg subcut QWEEK 03/26/24 Unknown History subcutaneous pen injector dicyclomine 10 mg capsule 20 mg (2 x 10 mg) PO TIDAC #8 07/03/25 Unknown Rx CAPSULES ondansetron 4 mg disintegrating 4 mg PO Q8H PRN PRN Nausea #10 tabs 07/03/25 Unknown Rx tablet Allergy/AdvReac Type Severity Reaction Status Date / Time codeine AdvReac Other Verified 07/03/25 10:27 Family History Mother COPD (chronic obstructive pulmonary disease) Father COPD (chronic obstructive pulmonary disease) CVA (cerebral vascular accident) Hypertension Surgical History S/P ORIF (open reduction internal fixation) fracture Hx of umbilical hernia repair S/P inguinal hernia repair Social History household members: none Smoking Status: Former smoker how long ago did patient quit smoking: Prior 1 pack/week starting in his 20s, stopped 10-12 years ago. alcohol intake: never substance use type: does not use EXAM Physical Exam Const Vital Signs: 07/03/25 10:27 07/03/25 13:11 07/03/25 13:57 Temperature 97.6 F L 97.9 F Temperature Source Temporal Pulse Rate 65 58 L 58 L Respiratory Rate 18 16 18 Blood Pressure 143/71 H 143/60 H 165/81 H Blood Pressure Mean 95 87 109 Pulse Ox 99 98 99 Oxygen Delivery Method Room Air Room Air MDM MDM MDM Narrative Medical decision making narrative: Patient seen and examined: IV, fluids, basic lab work, COVID and influenza testing, Zofran and Toradol Differential diagnosis includes but is not limited to: Flulike symptoms, COVID, influenza, gastroenteritis, Relevant laboratory interpretation: Patient has history of leukopenia and anemia. Platelets 138. Reevaluation: Patient felt significantly better after IV fluids and Zofran. Social barriers to healthcare: There are no food insecurities, there is no issue with transportation, there are no insurance barriers Disposition: Patient was sent home with Zofran and Bentyl. Patient felt much better with IV fluids. No acute indication for CT of the abdomen pelvis. Patient has a nonsurgical abdomen. Reassessment of patient's abdomen at discharge shows soft, nontender, no guarding, rebound, rigidity. Patient has benign abdomen at discharge. Lab Data Attestation: I reviewed the patient's lab results. Labs: Laboratory Results - last 24 hr 07/03/25 11:30 WBC 3.0 L RBC 2.96 L Hgb 9.4 L Hct 29.2 L MCV 98.6 H MCH 31.8 MCHC 32.2 RDW Std Deviation 57.0 H RDW Coeff of Ken 15.9 H Plt Count 138 L MPV 10.6 Immature Gran % (Auto) 0.300 Neut % (Auto) 66.7 Lymph % (Auto) 20.5 [place] % (Auto) 6.1 Eos % (Auto) 5.7 H Baso % (Auto) 0.7 Absolute Neuts (auto) 2.0 Absolute Lymphs (auto) 0.61 L Nucleated RBC % 0 Sodium 139 Potassium 4.3 Chloride 105 Carbon Dioxide 27.5 Anion Gap 6 BUN 13 Creatinine 0.52 L Estim Creat Clear Calc 232.10 Est GFR (MDRD) Non-Af 124 BUN/Creatinine Ratio 25.3 H Glucose 94 Lactic Acid < 1.0 Calcium 8.4 Total Bilirubin 0.95 AST 61 H ALT 48 H Alkaline Phosphatase 125 Total Protein 7.0 Albumin 3.2 L Globulin 3.8 Albumin/Globulin Ratio 0.8 L Lipase 41 Discharge Plan Triage Chief Complaint: Abd Pain ED Provider: Tomas Cho Dx/Rx/DC Orders Clinical Impression: Abdominal cramping, Flu-like symptoms Instructions: Abdominal Pain, The Flu (Influenza), ED Vomiting (Adult) Prescriptions: New ondansetron 4 mg tablet,disintegrating 4 mg PO Q8H PRN PRN (Reason: Nausea) Qty: 10 0RF dicyclomine 10 mg capsule 20 mg PO TIDAC Qty: 8 0RF No Action furosemide [Lasix] 20 mg tablet 20 mg PO DAILY atorvastatin 20 MG tablet 80 mg PO QHS acetaminophen 500 MG tablet 500 - 1,000 mg PO Q6H PRN PRN (Reason: Pain) metformin 500 MG tablet,ER carlyn.retention 24 hr 1,000 mg PO BID Gabapentin 200 mg PO 2XD Nadolol 40 mg PO DAILY Melatonin 5 mg PO QHS Farxiga 5 MG tablet 10 mg PO DAILY pantoprazole 40 mg tablet,delayed release (DR/EC) 40 mg PO BID celecoxib 100 mg capsule 200 mg PO BID vitamin E (dl, acetate) 450 mg (1,000 unit) capsule 450 mg PO DAILY trazodone 50 mg tablet 50 mg PO QHS PRN (Reason: sleep) lorazepam 1 mg tablet 1 mg PO QHS dulaglutide 1.5 mg/0.5 mL pen injector 1.5 mg subcut QWEEK lisinopril 20 MG tablet 40 mg PO BID aspirin 81 MG tablet,chewable 81 mg PO DAILY@0800 Patient Comments: states was not told to stop for surgery sertraline 50 MG tablet 100 mg PO DAILY ezetimibe 10 MG tablet 10 mg PO DAILY albuterol sulfate [Ventolin HFA] 90 mcg/actuation HFA aerosol inhaler 1 - 2 puff inhalation Q4H PRN PRN (Reason: Wheezing) Qty: 1 0RF Primary Care Provider: Tomas Holman Referrals: Tomas Holman MD [[place] [facility] Activity Restrictions/Additional Instructions: Increase fluids at home, Gatorade, Powerade, water Use Zofran as needed for nausea, use Bentyl as needed for abdominal cramping. Follow-up with PCP on Sunday for reevaluation Print Language: Hong Konger Disposition Disposition: Home, Self Care Discharge Date/Time: 07/03/25 13:59
[2025-07-03] MEDS: 0.9% Normal Saline (1000mL) 1,000 ML 999 ML IV (11:35)
[2025-07-03 11:37] LABS: Hematocrit 29.2 % (40-54); Hemoglobin 9.4 g/dL (13.0-16.5); Immature Granulocytes Count 0.010 X10^3/uL (0.0-0.0); Mean Corp Hgb Conc 32.2 g/dL (32-36); Mean Corpuscular Volume 98.6 fL (80-94); Mean Platelet Vol. 10.6 fl (6.2-12.0); NRBC Flagged by Analyzer 0 % (0-5); Platelet Count 138 K/mm3 (150-450); RBC Distribution Width CV 15.9 % (11.6-14.6); RBC Distribution Width SD 57.0 fl (35.1-43.9); Red Blood Count 2.96 M/mm3 (4.6-6.2); White Blood Count 3.0 K/mm3 (4.4-11.0)
[2025-07-03 12:10] LABS: AST(SGOT) 61 U/L (<=37); Alanine Aminotransfer ALT/SGPT 48 U/L (<=46); Albumin, Serum 3.2 g/dL (3.5-5.0); Alkaline Phosphatase 125 U/L (40-129); Anion Gap 6 (5-15); BUN 13 mg/dL (4-19); BUN/Creat Ratio 25.3 RATIO (10-20); Calcium,Total 8.4 mg/dL (7.6-11.0); Carbon Dioxide 27.5 mmol/L (21.0-32.0); Chloride 105 mmol/L (98-108); Estimated Creatinine Clearance 232.10 ml/min (50-250); Globulin 3.8 g/dL (2.2-4.2); Glucose 94 mg/dL (70-99); Lipase 41 U/L (13-75); Potassium 4.3 mmol/L (3.3-5.1)
[2025-07-03 13:11] VITALS: BP 143/60; PULSE 58; RESP 16; O2SAT 98
[2025-07-03 13:57] VITALS: BP 165/81; PULSE 58; RESP 18; TEMP 36.6; O2SAT 99
== END 2025-07-03 13:59 | disposition home or self-care (01) ==
PROVIDERS: Emergency Provider Emergency Medicine; PCP Family Medicine; Visit Provider Emergency Medicine
DX: R10.33 Periumbilical pain (principal); E11.9 Type 2 diabetes mellitus without complications; R11.0 Nausea; R51.9 Headache, unspecified; R19.5 Other fecal abnormalities; I10 Essential (primary) hypertension; K43.9 Ventral hernia without obstruction or gangrene; F41.9 Anxiety disorder, unspecified; D69.6 Thrombocytopenia, unspecified; E78.5 Hyperlipidemia, unspecified; D64.9 Anemia, unspecified; G47.30 Sleep apnea, unspecified; Z79.84 Long term (current) use of oral hypoglycemic drugs; Z79.85 Long-term (current) use of injectable non-insulin antidiabetic drugs; Z79.82 Long term (current) use of aspirin; Z79.899 Other long term (current) drug therapy; Z87.891 Personal history of nicotine dependence
CPT/HCPCS: 80053; 83605; 83690; 85025; 87631; 96361; 96372; 96374; 99283; A4216